=== PATIENT | male | born 1940 | race Caucasian/White ===

== ENCOUNTER 2019-11-03 19:43 | Inpatient (IN) | payer OTHER, SELFPAY ==
[2019-11-03] VITALS (8 sets, daily range): BP systolic 113–142; BP diastolic 68–80; PULSE 89–108; RESP 17–22; TEMP 37.4; O2SAT 95–99; BMI 29.6
--- NOTE | 2019-11-03 19:45 | PC.NURSE ---
EMS states that patient has been having trouble breathing for the last couple weeks. Patient received a duoneb treatment but wheezing still.
--- NOTE | 2019-11-03 19:51 | XRR_ITS ---
PROCEDURE INFORMATION: Exam: XR Chest, 1 View Exam date and time: 11/03/2019 8:17 PM Age: 79 years old Clinical indication: Dyspnea; Additional info: SOB TECHNIQUE: Imaging protocol: XR of the chest Views: 1 view. COMPARISON: CR Chest 1 [place] [id number] 05/06/2019 12:33 PM FINDINGS: There is chronic elevation of the right hemidiaphragm. No infiltrates are present. There is no pleural effusion or pneumothorax. The heart size is stable. Pulmonary vascularity is normal. There is atherosclerotic change of the aorta. There has been no significant interval change. XR/XR chest 1V portable [id number] IMPRESSION: Stable appearance of the chest.
--- NOTE | 2019-11-03 19:52 | ED_ITS ---
HPI - SOB/Dyspnea General: Chief Complaint: Shortness of Breath/Dyspnea Stated Complaint: SOB Time Seen by Provider: 11/03/19 19:47 History of Present Illness: MD elicited complaint: shortness of breath and cough Pertinent past history: COPD Onset (ago): week(s) (2) Timing: constant and progressively worsening Severity: moderate Exacerbating factors: exertion Relieving factors: nothing Known history of: COPD Associated symptoms: Reports chest congestion, cough and fever(s); Deny chest pain, dizziness, nausea or vomiting Review of Systems Const: Reports: fever Eyes: Denies: change in vision or blurry vision ENMT: Denies: painful swallowing, nose bleeds, post nasal drip or facial/sinus pain Card: Denies: chest pain Resp: Reports: chest congestion GI: Denies: nausea or vomiting : Reports: difficulty urinating and other (Chronic indwelling Drake); Denies: urinary urgency or blood in urine Musc: Denies: neck pain, back pain, redness or joint warmth Skin/Breast: Denies: rash, itching or redness Neuro: Denies: headache, dizziness, vertigo, confusion or seizure-like activity Psych: Denies: anxiety, visual hallucinations or auditory hallucinations PFSH ED PFSH: Family History (Updated 08/07/19 @ 17:35 by Valeria Baltazar RN) Family/Other No problems noted. Social History (Updated 08/07/19 @ 17:35 by Valeria Baltazar RN) Smoking and tobacco status: never smoked Alcohol intake: never Marital status: / Current occupational status: retired and disabled Physical Exam Const: GENERAL APPEARANCE: well developed ORIENTATION/CONSCIOUSNESS: Yes oriented to person, Yes oriented to place and Yes oriented to time HENMT: COMMON NORMALS: normocephalic, external ears normal and external nose normal HEAD & SCALP: normocephalic; no scalp tenderness FACE & SINUS: normal facial exam NOSE: external nose normal and no nasal discharge EXTERNAL EAR: Yes external ears normal Eye: COMMON NORMALS: PERRL, EOMs intact bilaterally and conjunctivae normal EYELID: eyelids normal CONJUNCTIVA: Yes conjunctivae normal PUPIL: Yes PERRL Neck/C-Spine: GENERAL: No tracheal deviation Chest: COMMONS NORMALS: inspection of chest normal CHEST: No tenderness Resp: EFFORT & INSPECTION: Yes tachypneic, Yes respiratory distress, No retractions, Yes uses accessory muscles and No tracheal deviation AUSCULTATION: rhonchi, wheezes and diminished lung sounds Cardio: COMMON NORMALS: regular rhythm RATE: tachycardic RHYTHM: regular rhythm HEART SOUNDS: no murmurs PERIPHERAL PULSES: radial pulses present GI: INSPECTION: No abdominal distension AUSCULTATION: No hyperactive bowel sounds and No hypoactive bowel sounds PALPATION: No guarding and No rigid PERCUSSION: no dullness to percussion and no tympanic to percussion Neuro: SENSORIUM/ORIENTATION: Yes oriented to person, Yes oriented to place and Yes oriented to time Psych: COMMON NORMALS: mental status grossly normal Skin: COMMON NORMALS: no rashes or lesions noted GENERAL SKIN EXAM: no rashes or lesions noted Course Vital Signs: Vital signs: Vital Signs Temperature 99.3 F 11/03/19 19:44 Pulse Rate 108 H 11/03/19 20:49 Respiratory Rate 17 11/03/19 20:49 Blood Pressure 116/72 11/03/19 20:49 Pulse Oximetry 98 11/03/19 20:49 MDM - SOB/Dyspnea MDM Narrative: Medical decision making narrative: 79-year-old male with a history of COPD. Says he has been getting more and more ill for the past 2 weeks. Today he could not breathe at home. This was despite oxygen and breathing treatments. He presents to the emergency department tachypneic, in mild respiratory distress, using accessory muscles to breathe. He is improved after a DuoNeb treatment and Solu-Medrol, although still tachypneic and still using some accessory muscles. He still audibly wheezing as well. His blood gas does not show a respiratory acidosis, however he was significantly tachypneic on arrival. He will be admitted for hypoxic respiratory failure and COPD exacerbation. Because of his temperature, he will be tested for COVID 19. Lab Data: Labs: Lab Results 11/03/19 11/03/19 11/03/19 Range/Units 20:10 20:10 20:10 WBC 14.9 H (4.0-10.0) 10^3/ uL RBC 4.56 (4.1-5.3) 10^6/u L Hgb 12.4 (11.7-16.6) g/dL Hct 40.3 L (42.0-52.0) % MCV 88.4 (80-94) fL MCH 27.2 L (28.0-34.0) pg MCHC 30.8 (30.0-36.0) g/dL RDW 15.7 H (12.1-15.1) % Plt Count 162 (130-400) 10^3/c mm MPV 9.6 (7.4-10.4) fL Neut % (Auto) 87.0 % Lymph % (Auto) 3.6 % Ward % (Auto) 8.6 % Eos % (Auto) 0.1 % Baso % (Auto) 0.3 % Neut # (Auto) 13.0 H (1.8-7.7) 10^3/u L Lymph # (Auto) 0.5 L (0.8-4.8) 10^3/u L Ward # (Auto) 1.3 H (0.2-0.9) 10^3/u L Eos # (Auto) 0.0 (0.0-0.8) 10^3/u L Baso # (Auto) 0.0 (0.0-0.1) 10^3/u L Nucleated RBC % (a uto) 0 % Nucleated RBCs # 0.0 /100WBC Specimen Type Arterial Sample Site Radial, left ABG pH 7.39 (7.35-7.45) ABG pCO2 49.3 H (35-45) mmHg ABG pO2 67.4 L (80.0-100.0) mmH g ABG HCO3 29.5 H (22-26) mmol/L ABG Base Excess 3.6 H (-2.0-2.0) mmol/ L Shaun Test Pos Hematocrit 36.8 L (42-52) % Hgb O2 Saturation 91.5 L (95-100) % Carboxyhemoglobin 1.0 (0.4-20.1) %THgb Methemoglobin 0.8 (0.4-1.5) % Total Hemoglobin 12.0 L (14-18) g/dL O2 Delivery Device Nc O2 Liters/Min 4.0 % Cold Roll Catcher ID [email or web address] Sodium 137 (136-145) mmol/L Potassium 4.6 (3.5-5.1) mmol/L Chloride 95 L (98-107) mmol/L Carbon Dioxide 29 (22-29) mmol/L Anion Gap 17.6 (5-19) BUN 32 H (8-23) mg/dL Creatinine 2.0 H (0.7-1.2) mg/dL Glucose 182 H (65-115) mg/dL Calculated Osmolal ity 286 (285-295) mOsm/k g Lactic Acid (0.5-2.2) mmol/L Calcium 9.9 (8.5-10.5) mg/dL Total Bilirubin 0.4 (0.15-1.2) mg/dL AST 23 (0-40) U/L ALT 18 (0-41) U/L Alkaline Phosphata se 173 H (40-130) IU/L NT-Pro-B Natriuret Pep 676 H (0-450) pg/mL Total Protein 7.3 (6.6-8.7) g/dL Albumin 3.8 (3.5-5.2) g/dL Globulin 3.5 (1.3-4.6) g/dL Influenza Type A A g (Negative) Influenza Type B A g (Negative) 11/03/19 11/03/19 Range/Units 20:10 20:47 WBC (4.0-10.0) 10^3/ uL RBC (4.1-5.3) 10^6/u L Hgb (11.7-16.6) g/dL Hct (42.0-52.0) % MCV (80-94) fL MCH (28.0-34.0) pg MCHC (30.0-36.0) g/dL RDW (12.1-15.1) % Plt Count (130-400) 10^3/c mm MPV (7.4-10.4) fL Neut % (Auto) % Lymph % (Auto) % Ward % (Auto) % Eos % (Auto) % Baso % (Auto) % Neut # (Auto) (1.8-7.7) 10^3/u L Lymph # (Auto) (0.8-4.8) 10^3/u L Ward # (Auto) (0.2-0.9) 10^3/u L Eos # (Auto) (0.0-0.8) 10^3/u L Baso # (Auto) (0.0-0.1) 10^3/u L Nucleated RBC % (a uto) % Nucleated RBCs # /100WBC Specimen Type Sample Site ABG pH (7.35-7.45) ABG pCO2 (35-45) mmHg ABG pO2 (80.0-100.0) mmH g ABG HCO3 (22-26) mmol/L ABG Base Excess (-2.0-2.0) mmol/ L Shaun Test Hematocrit (42-52) % Hgb O2 Saturation (95-100) % Carboxyhemoglobin (0.4-20.1) %THgb Methemoglobin (0.4-1.5) % Total Hemoglobin (14-18) g/dL O2 Delivery Device O2 Liters/Min % Cold Roll Catcher ID Sodium (136-145) mmol/L Potassium (3.5-5.1) mmol/L Chloride (98-107) mmol/L Carbon Dioxide (22-29) mmol/L Anion Gap (5-19) BUN (8-23) mg/dL Creatinine (0.7-1.2) mg/dL Glucose (65-115) mg/dL Calculated Osmolal ity (285-295) mOsm/k g Lactic Acid 1.2 (0.5-2.2) mmol/L Calcium (8.5-10.5) mg/dL Total Bilirubin (0.15-1.2) mg/dL AST (0-40) U/L ALT (0-41) U/L Alkaline Phosphata se (40-130) IU/L NT-Pro-B Natriuret Pep (0-450) pg/mL Total Protein (6.6-8.7) g/dL Albumin (3.5-5.2) g/dL Globulin (1.3-4.6) g/dL Influenza Type A A g Negative (Negative) Influenza Type B A g Negative (Negative) Discharge Plan Discharge Patient Disposition: Admitted As Inpatient Clinical Impression: Acute exacerbation of chronic obstructive airways disease Respiratory failure, acute and chronic Qualifiers: Respiratory failure complication: hypoxia Qualified Code(s): J96.21 - Acute and chronic respiratory failure with hypoxia Condition: Stable Referrals: Erik Adkins DO [Family Provider] - Coding Level of Care Code ED Closing Manager for [facility] Fwd Exam Comprehensive
[2019-11-03] MEDS: ipratropium-albuterol 3 mL Neb INHALATION (20:08)
[2019-11-03 20:16] LABS: Basophils % 0.3 %; Eosinophils % 0.1 %; Hematocrit 40.3 % (42.0-52.0); Hemoglobin 12.4 g/dL (11.7-16.6); Lymphocytes # 0.5 10^3/uL (0.8-4.8); Lymphocytes % 3.6 %; Mean Corpuscular HGB Conc 30.8 g/dL (30.0-36.0); Mean Corpuscular Hemoglobin 27.2 pg (28.0-34.0); Mean Corpuscular Volume 88.4 fL (80-94); Mean Platelet Volume 9.6 fL (7.4-10.4); Monocytes # 1.3 10^3/uL (0.2-0.9); Monocytes % 8.6 %; Nucleated Red Blood Cells % 0 %; Platelet Count 162 10^3/cmm (130-400); Red Blood Count 4.56 10^6/uL (4.1-5.3); Red Cell Distribution Width 15.7 % (12.1-15.1); White Blood Count 14.9 10^3/uL (4.0-10.0)
[2019-11-03] MEDS: FUROsemide 10 mg/mL SDV 10mL 60 MG IVP (20:19)
[2019-11-03 20:30] LABS: Lactic Sepsis W/Reflex 1.2 mmol/L (0.5-2.2)
[2019-11-03 20:39] LABS: ABG PCO2 49.3 mmHg (35-45); ABG PH Result 7.39 (7.35-7.45); Arterial Blood Gas Hematocrit 36.8 % (42-52); Base Excess ABG 3.6 mmol/L (-2.0-2.0); Blood Gas Allen Test Pos; Blood Gas Sample Site Radial, left; Blood Gas Sample Type Arterial; HCO3 ABG 29.5 mmol/L (22-26); HGB O2 Sat 91.5 % (95-100); Methemoglobin 0.8 % (0.4-1.5); Oxygen Device NC; PO2 ABG 67.4 mmHg (80.0-100.0)
[2019-11-03 20:40] LABS: Alanine Aminotransferase 18 U/L (0-41); Albumin Level 3.8 g/dL (3.5-5.2); Alkaline Phosphatase 173 IU/L (40-130); Anion Gap 17.6 (5-19); Aspartate Amino Transferase 23 U/L (0-40); Blood Urea Nitrogen 32 mg/dL (8-23); Calcium 9.9 mg/dL (8.5-10.5); Carbon Dioxide 29 mmol/L (22-29); Chloride 95 mmol/L (98-107); Globulin 3.5 g/dL (1.3-4.6); Glucose 182 mg/dL (65-115); NT Pro B Type Natriuretic Pept 676 pg/mL (0-450); Osmolality Calculated 286 mOsm/kg (285-295); Potassium 4.6 mmol/L (3.5-5.1); Sodium 137 mmol/L (136-145); Total Bilirubin 0.4 mg/dL (0.15-1.2); Total Protein 7.3 g/dL (6.6-8.7)
[2019-11-03 21:13] LABS: Influenza A by IFA Negative (Negative); Influenza B by IFA Negative (Negative)
[2019-11-03] MEDS: doxycycline 100 mg Tablet PO (22:23)
--- NOTE | 2019-11-03 22:25 | PC.NURSE ---
patient gowned by nurse
--- NOTE | 2019-11-03 22:34 | PM.HP ---
Providers/Chief Complaint Chief Complaint: SOB History of Present Illness Vladimir Farnsworth is a 79 year old male who presented to the emergency room with chief complaint of difficulty breathing. Symptoms have been progressing over the last 2 weeks. He has had increasing cough which is intermittently productive of thickened sputum. When he coughs he cannot breathe . He is not been able to do anything because of his breathing. He cannot get up and walk around. He thinks he has had a low-grade fever but he is not certain. Denies sore throat. He has pain with coughing but it is primarily in the lower abdomen rather than in the chest. He has not been sleeping well. He describes also getting more short of breath when eating but denies physical difficulty swallowing. He does describe some lower extremity edema. Probably describing some orthopnea but not clear. No reported vomiting, diarrhea, constipation. He does describe difficulties with my catheter but is not able to really go into details beyond complaints of pain in the lower abdomen and suprapubic area. Urine is flowing. He cannot tell me the last time that the catheter was changed. He does mention that it is difficult to place. He has a chronic indwelling Drake catheter due to benign prostatic hypertrophy. He does mention having home health services that come out and change the catheter but I am not certain if this has been ongoing recently or not. Patient had audible wheezing on presentation to the ED and was initially on some significant distress. He does wear oxygen chronically for COPD. Review of records shows some noncompliance. He has chronic diastolic CHF. He reports compliance with medications and did bring bottles in. In the ED he received breathing treatment, Solu-Medrol and IV Lasix. He is currently breathing a bit better but has paroxysms of coughing that are quite severe. He is being admitted for further care. Review of Systems Const: Reports: fever (Subjective), fatigue and malaise; Denies: chills or diaphoresis Eyes: Denies: change in vision ENMT: Reports: nasal congestion; Denies: throat pain Card: Reports: edema; Denies: chest pain or palpitations Resp: Reports: shortness of breath, productive cough, non-productive cough, wheezing, pain on inspiration (Lower abdomen, not in chest) and chest congestion; Denies: change in phlegm color or coughing up blood GI: Reports: abdominal pain (With coughing); Denies: nausea, vomiting, difficulty swallowing (But reports gets more short of breath while eating), diarrhea, constipation or blood in stool : Reports: other (Chronic indwelling Drake catheter, unclear problems reported) Musc: Reports: back pain, joint pain and muscle weakness; Denies: redness or joint warmth Skin/Breast: Denies: rash or sores Neuro: Reports: weakness in extremities (General rather than focal); Denies: headache or numbness in extremities Psych: Reports: anxiety (About breathing) Riky/Lymph: Denies: easy bruising or easy bleeding Medications/Allergies Home Medications Medication Instructions Recorded Confirmed Last Taken Type furosemide 40 mg PO DAILY 11/03/19 11/04/19 Unknown History hydrocodone-acetaminophen 1 tab PO Q6H PRN 11/03/19 11/03/19 11/03/19 History ipratropium-albuterol 2.5 ml INHALATION Q4H PRN 11/03/19 11/03/19 Unknown History lisinopril 5 mg PO DAILY 11/03/19 11/04/19 Unknown History metformin 500 mg PO BID 11/03/19 11/04/19 Unknown History metoprolol tartrate 12.5 mg PO BID 11/03/19 11/04/19 11/03/19 History 25 mg potassium chloride 20 meq PO DAILY 11/03/19 11/04/19 Unknown History Allergies Allergy/AdvReac Type Severity Reaction Status Date / Time No Known Allergies Allergy Unverified 08/07/19 17:31 PFSH Acute PFSH: Medical History Aortic stenosis, mild BPH with urinary obstruction CHF (congestive heart failure) Chronic kidney disease, stage 3 COPD (chronic obstructive pulmonary disease) COPD (chronic obstructive pulmonary disease) Diabetes mellitus, type II History of ESBL E. coli infection urine Hypertension Osteoarthritis chronic back and joint pains Surgical History No pertinent past surgical history denies any surgeries Family History Family/Other No problems noted. Social History Smoking and tobacco status: never smoked Alcohol intake: never Marital status: / Current occupational status: retired and disabled Vitals/I&O/Wt Last Vital Signs Temp 99.3 F 11/03/19 19:44 Pulse 95 11/03/19 22:14 Resp 18 11/03/19 22:14 BP 113/68 11/03/19 22:14 Pulse Ox 95 11/03/19 22:14 Weight last 48 hrs Weight 88.451 kg Physical Exam Const: COMMON NORMALS: oriented x3 and alert HENMT: COMMON NORMALS: normocephalic, head/scalp atraumatic and moist oral mucous membranes Eye: COMMON NORMALS: EOMs intact bilaterally Resp: EFFORT & INSPECTION: Yes tachypneic, Yes uses accessory muscles and Yes prolonged expiratory phase AUSCULTATION: wheezes Cardio: COMMON NORMALS: regular rhythm RHYTHM: regular rhythm GI: COMMON NORMALS: soft to palpation AUSCULTATION: Yes normoactive bowel sounds PALPATION: Yes other (Patient holds his lower abdomen with coughing but not focally tender when not coughing) Extremity: COMMON NORMALS: normal capillary refill GENERAL: Yes edema Neuro: COMMON NORMALS: moves all extremities Psych: OTHER: Patient jokes and complains of pain throughout the examination. He is not a great historian but does try to answer questions. He has poor insight into his overall medical conditions, asking why he is as sick as he is chronically not so much acutely. Skin: NARRATIVE SKIN EXAM: Patient has a wound to his right upper extremity that is chronic with hypertrophied scabbing. He has chronic sun exposure changes. On his lower extremities he has some chronic stasis changes. Data : 11/04/19 04:30 11/04/19 04:30 Micro: Microbiology 11/03/19 20:12 Blood Culture - Preliminary Blood SPECIMEN COLLECTED 11/03/19 20:10 Blood Culture - Preliminary Blood SPECIMEN COLLECTED A&P Assessment and plan (1) Acute exacerbation of chronic obstructive airways disease: Status: Acute (2) Respiratory failure, acute and chronic: Status: Acute Qualifiers: Respiratory failure complication: hypoxia Qualified Code(s): J96.21 - Acute and chronic respiratory failure with hypoxia (3) Aortic stenosis, mild: Status: Chronic (4) Diabetes mellitus, type II: Status: Chronic Qualifiers: Diabetes mellitus terminal clerk insulin use: without terminal clerk use Diabetes mellitus complication status: with kidney complications Diabetes mellitus complication detail: with chronic kidney disease Chronic kidney disease stage: stage 3 (moderate) Qualified Code(s): E11.22 - Type 2 diabetes mellitus with diabetic chronic kidney disease; N18.3 - Chronic kidney disease, stage 3 (moderate) (5) Chronic indwelling Drake catheter: Status: Chronic (6) Hypertension: Status: Chronic Qualifiers: Hypertension type: essential hypertension Qualified Code(s): I10 - Essential (primary) hypertension (7) Frequent falls: Status: Chronic (8) Osteoarthritis: Status: Chronic Qualifiers: Osteoarthritis location: multiple joints Osteoarthritis type: unspecified Qualified Code(s): M15.9 - Polyosteoarthritis, unspecified Additional A&P Information Inpatient admission COVID testing Continue inhalers, oral steroids and oral doxycycline Replace Drake catheter tubing and check urinalysis IV Lasix for now Monitor I's and O's and renal function closely Hold metformin, sliding scale insulin currently Continue home lisinopril Continue home pain medication with hydrocodone PT evaluation pending results of COVID testing We will need to clarify disposition options; he currently lives with his sister Supportive care otherwise Full code Plans discussed with patient and he was given an opportunity to ask questions Attestations Medical Necessity Statement*: Anticipated stay greater than 2 midnights in a patient with COPD presenting with worsening symptoms as noted above. Plans are as indicated Coding Level of Care Code Acute Librarian Special Library for [facility] Diagnoses Acute exacerbation of chronic obstructive airways disease J44.1 Respiratory failure, acute and chronic J96.21 Respiratory failure complication: hypoxia Aortic stenosis, mild I35.0 Diabetes mellitus, type II E11.22; N18.3 Diabetes mellitus terminal clerk insulin use: without terminal clerk use Diabetes mellitus complication status: with kidney complications Diabetes mellitus complication detail: with chronic kidney disease Chronic kidney disease stage: stage 3 (moderate) Chronic indwelling Drake catheter Z96.0 Hypertension I10 Hypertension type: essential hypertension Frequent falls R29.6 Osteoarthritis M15.9 Osteoarthritis location: multiple joints Osteoarthritis type: unspecified
[2019-11-03 23:33] LABS: Magnesium 1.6 mg/dL (1.7-2.3)
[2019-11-04] VITALS (46 sets, daily range): BP systolic 103–144; BP diastolic 59–80; PULSE 65–99; RESP 12–28; TEMP 36.8–37.1; O2SAT 81–97
--- NOTE | 2019-11-04 00:42 | PC.NURSE ---
Home medications discussed with patient. Medications placed in home med bin in pyxis. Medications included metoprolol, metformin, potassium chloride, lisinopril and furosemide. Verified with MONSTER Quinn.
[2019-11-04] MEDS: HYDROcodone-acetaminophen 5-325 mg Tablet 1 TAB PO ×4 (00:48→22:52)
[2019-11-04] MEDS: enoxaparin 30 mg/0.3 mL Syringe SUBCUT (00:49)
--- NOTE | 2019-11-04 01:22 | PC.NURSE ---
Pt settled into bed, admission assessment done, SCDs placed, O2 on 3L NC, Pt given lovenox, insulin, and hydrocodone., Pt ate Pudding, cheese stick, and crackers, Pt borja bag replaced and line clamped to pull urinalysis sample, call light w/in reach
[2019-11-04 01:24] LABS: Glucose Point of Care 212 mg/dL (70-110)
--- NOTE | 2019-11-04 02:39 | PC.NURSE ---
Pt c/o pain even after hydrocodone. Dr. Barrera notified. no orders given.
[2019-11-04] MEDS: albuterol 8 gm MDI 2 PUFF INHALATION (02:51)
[2019-11-04 03:23] LABS: Bilirubin Urine Neg (NEGATIVE); Blood Urine 2+ (Negative); Glucose Urine UA Norm (Normal); Ketones Urine Negative (Negative); Leukocyte Esterase Urine 2+ (Negative); Nitrate Urine Positive (Negative); Protein Urine Neg (Negative); Urine Appearance Cloudy (CLEAR); Urine Color Straw (Yellow); Urobilinogen Urine Norm (Negative); pH Urine 5 (5-7)
[2019-11-04 03:24] LABS: Add Urine Microscopic? YES
[2019-11-04 03:25] LABS: Bacteria Urine 2+; RBC Urine 0-4 /hpf (0-2); Squamous Epithelial Cell Urine 0-4 (0-5); WBC Urine 80-100 /hpf (0-5)
[2019-11-04 03:26] LABS: Add Urine Culture? Yes; Mucus Urine TRACE
[2019-11-04] MEDS: acetaminophen 325 mg Tablet 650 MG PO (03:47)
--- NOTE | 2019-11-04 04:01 | PC.NURSE ---
pt c/o pain still. hydrocodone given again with tylenol as well.
[2019-11-04 05:05] LABS: Basophils % 0.2 %; Hemoglobin 11.8 g/dL (11.7-16.6); Lymphocytes # 0.3 10^3/uL (0.8-4.8); Lymphocytes % 2.9 %; Mean Corpuscular HGB Conc 30.3 g/dL (30.0-36.0); Mean Corpuscular Hemoglobin 25.9 pg (28.0-34.0); Mean Corpuscular Volume 85.7 fL (80-94); Mean Platelet Volume 10.3 fL (7.4-10.4); Monocytes # 0.2 10^3/uL (0.2-0.9); Monocytes % 1.9 %; Neutrophils # 9.6 10^3/uL (1.8-7.7); Neutrophils % 94.5 %; Nucleated Red Blood Cells % 0 %; Platelet Count 171 10^3/cmm (130-400); Red Blood Count 4.55 10^6/uL (4.1-5.3); Red Cell Distribution Width 15.6 % (12.1-15.1); White Blood Count 10.2 10^3/uL (4.0-10.0)
[2019-11-04 05:21] LABS: Anion Gap 20.4 (5-19); Blood Urea Nitrogen 40 mg/dL (8-23); Carbon Dioxide 30 mmol/L (22-29); Chloride 93 mmol/L (98-107); Glucose 302 mg/dL (65-115); Magnesium 1.7 mg/dL (1.7-2.3); Osmolality Calculated 297 mOsm/kg (285-295); Potassium 4.4 mmol/L (3.5-5.1); Sodium 139 mmol/L (136-145)
[2019-11-04] MEDS: morphine 4 mg/mL SDV 1 mL 2 MG IVP (05:44)
[2019-11-04 07:31] LABS: Glucose Point of Care 272 mg/dL (70-110)
[2019-11-04] MEDS: metoprolol tartrate 25 mg Tablet 12.5 MG PO ×2 (07:51→20:01)
[2019-11-04] MEDS: predniSONE 20 mg Tablet 40 MG PO (10:35)
[2019-11-04] MEDS: doxycycline 100 mg Tablet PO ×2 (10:36→17:15)
--- NOTE | 2019-11-04 13:51 | PM.PN ---
Subjective Subjective: Interval history: This morning patient states that his breathing has improved, no fevers, no chills, no nausea, no vomiting, no lightheadedness, no dizziness, states that he was [facility] from the [facility] a few months ago, currently lives by himself, no falls, no injury, no recent travel, no known exposure to COVID-19 Vitals/I&O/Wt Last Vital Signs Temp 99.3 F 11/03/19 19:44 Pulse 74 11/04/19 12:30 Resp 24 H 11/04/19 12:30 BP 110/60 11/04/19 12:30 Pulse Ox 94 11/04/19 12:30 11/03/19 11/04/19 11/04/19 22:59 06:59 14:59 Intake Total 400 / 400 480 / 480 Balance 400 / 400 480 / 480 Weight last 48 hrs Weight 88.451 kg Physical Exam Const: COMMON NORMALS: no apparent distress and oriented x3 HENMT: COMMON NORMALS: normocephalic HEAD & SCALP: normocephalic Neck/C-Spine: COMMON NORMALS: no JVD Resp: COMMON NORMALS: normal respiratory effort, no retractions and no use of accessory muscles AUSCULTATION: wheezes Cardio: COMMON NORMALS: no JVD, regular rate, regular rhythm, S1 normal heart sound and S2 normal heart sound RATE: regular rate RHYTHM: regular rhythm HEART SOUNDS: S1 normal and S2 normal GI: COMMON NORMALS: normal to inspection, nondistended, normoactive bowel sounds, soft to palpation, non-tender, no hepatosplenomegaly, no masses and no bruits PALPATION: Yes soft and Yes no hepatosplenomegaly Extremity: COMMON NORMALS: normal capillary refill, no clubbing, cyanosis or edema, no calf tenderness and no pedal edema Neuro: COMMON NORMALS: oriented x3 Psych: COMMON NORMALS: mental status grossly normal Urinary Catheter Management^: Drake: Cath Placed During This Visit: no Reason for Continuing Indwelling Catheter: Chronic Indwelling Urinary Catheter on Admission Data : 11/04/19 04:30 11/04/19 04:30 Micro: Microbiology 11/03/19 20:48 Gram Stain - Final Sputum - Expectorated Sputum 11/03/19 20:12 Blood Culture - Preliminary Blood SPECIMEN COLLECTED 11/03/19 20:10 Blood Culture - Preliminary Blood SPECIMEN COLLECTED A&P Assessment and plan (1) Acute exacerbation of chronic obstructive airways disease: -Patient does have x-ray evidence of right clementina-diaphragmatic elevation -Continue prednisone 40 mg daily -Continue doxycycline 100 mg p.o. twice daily -Continue nebulizer treatments -Continue oxygen therapy -We will await COVID-19 testing results Status: Acute (2) Respiratory failure, acute and chronic: Status: Acute Qualifiers: Respiratory failure complication: hypoxia Qualified Code(s): J96.21 - Acute and chronic respiratory failure with hypoxia (3) Aortic stenosis, mild: Echocardiogram on February 2019 shows moderate aortic stenosis Status: Chronic (4) Diabetes mellitus, type II: Low-dose sliding scale Status: Chronic Qualifiers: Diabetes mellitus buttermilk drier operator insulin use: without mcc use Diabetes mellitus complication status: with kidney complications Diabetes mellitus complication detail: with chronic kidney disease Chronic kidney disease stage: stage 3 (moderate) Qualified Code(s): E11.22 - Type 2 diabetes mellitus with diabetic chronic kidney disease; N18.3 - Chronic kidney disease, stage 3 (moderate) (5) Chronic indwelling Drake catheter: Status: Chronic (6) Hypertension: Status: Chronic Qualifiers: Hypertension type: essential hypertension Qualified Code(s): I10 - Essential (primary) hypertension (7) Frequent falls: Status: Chronic (8) Osteoarthritis: Status: Chronic Qualifiers: Osteoarthritis location: multiple joints Osteoarthritis type: unspecified Qualified Code(s): M15.9 - Polyosteoarthritis, unspecified (9) Acute kidney injury superimposed on CKD: Creatinine increased to 2.0 Status: Acute (10) UTI (urinary tract infection): -Has a chronic Drake -UA evidence of UTI, start Rocephin Status: Acute Additional A&P Information We will need to clarify disposition options; he currently lives with his sister Supportive care otherwise Full code Plans discussed with patient and he was given an opportunity to ask questions Attestations Medical Necessity Statement*: Patient requires hospitalization for COPD exacerbation, MARY BETH, UTI Coding Level of Care Code Acute Hand Alterations Seamstress for [facility] Fwd Diagnoses Acute exacerbation of chronic obstructive airways disease J44.1 Respiratory failure, acute and chronic J96.21 Respiratory failure complication: hypoxia Aortic stenosis, mild I35.0 Diabetes mellitus, type II E11.22; N18.3 Diabetes mellitus mcc insulin use: without buttermilk drier operator use Diabetes mellitus complication status: with kidney complications Diabetes mellitus complication detail: with chronic kidney disease Chronic kidney disease stage: stage 3 (moderate) Chronic indwelling Drake catheter Z96.0 Hypertension I10 Hypertension type: essential hypertension Frequent falls R29.6 Osteoarthritis M15.9 Osteoarthritis location: multiple joints Osteoarthritis type: unspecified Acute kidney injury superimposed on CKD N17.9; N18.9 UTI (urinary tract infection) N39.0
[2019-11-04] MEDS: piperacillin-tazobactam 3.375 GM in sodium chloride 0.9% (plus) 50 ML IV ×2 (16:10→23:50)
[2019-11-04 16:13] LABS: Coronavirus Lab Test PTC Negative
[2019-11-04 17:01] LABS: Glucose Point of Care 212 mg/dL (70-110)
[2019-11-04] MEDS: guaiFENesin 100 mg/5 mL UDC 10 mL 200 MG PO (20:05)
[2019-11-04 20:58] LABS: Glucose Point of Care 258 mg/dL (70-110)
[2019-11-05] VITALS (15 sets, daily range): BP systolic 113–142; BP diastolic 71–90; PULSE 8–91; RESP 18–24; TEMP 36.4–37.1; O2SAT 93–99
[2019-11-05] MEDS: enoxaparin 30 mg/0.3 mL Syringe SUBCUT ×2 (00:10→23:25)
[2019-11-05 06:13] LABS: Basophils % 0.1 %; Hematocrit 39.2 % (42.0-52.0); Lymphocytes # 0.8 10^3/uL (0.8-4.8); Lymphocytes % 4.5 %; Mean Corpuscular HGB Conc 30.6 g/dL (30.0-36.0); Mean Corpuscular Hemoglobin 26.1 pg (28.0-34.0); Mean Corpuscular Volume 85.2 fL (80-94); Mean Platelet Volume 11.3 fL (7.4-10.4); Monocytes # 1.5 10^3/uL (0.2-0.9); Monocytes % 8.4 %; Neutrophils # 15.3 10^3/uL (1.8-7.7); Neutrophils % 86.4 %; Nucleated Red Blood Cells % 0 %; Platelet Count 196 10^3/cmm (130-400); Red Cell Distribution Width 15.4 % (12.1-15.1); White Blood Count 17.7 10^3/uL (4.0-10.0)
[2019-11-05 06:32] LABS: Alanine Aminotransferase 32 U/L (0-41); Albumin Level 3.7 g/dL (3.5-5.2); Alkaline Phosphatase 139 IU/L (40-130); Anion Gap 18.5 (5-19); Aspartate Amino Transferase 31 U/L (0-40); Blood Urea Nitrogen 57 mg/dL (8-23); Carbon Dioxide 29 mmol/L (22-29); Chloride 96 mmol/L (98-107); Globulin 3.5 g/dL (1.3-4.6); Glucose 180 mg/dL (65-115); Magnesium 1.9 mg/dL (1.7-2.3); Osmolality Calculated 291 mOsm/kg (285-295); Phosphorus 3.4 mg/dL (2.5-4.5); Potassium 4.5 mmol/L (3.5-5.1); Sodium 139 mmol/L (136-145); Total Bilirubin 0.2 mg/dL (0.15-1.2); Total Protein 7.2 g/dL (6.6-8.7)
[2019-11-05 06:41] LABS: Glucose Point of Care 148 mg/dL (70-110)
[2019-11-05] MEDS: predniSONE 20 mg Tablet 40 MG PO (08:49)
[2019-11-05] MEDS: metoprolol tartrate 25 mg Tablet 12.5 MG PO ×2 (08:53→20:13)
[2019-11-05] MEDS: doxycycline 100 mg Tablet PO ×2 (08:56→17:29)
[2019-11-05] MEDS: piperacillin-tazobactam 3.375 GM in sodium chloride 0.9% (plus) 50 ML IV ×3 (08:56→23:23)
--- NOTE | 2019-11-05 10:47 | XR_ITS ---
WS: [id number] PORTABLE CHEST HISTORY: wheezing COMPARISON: 11/03/2019 Chronic elevation of the RIGHT hemidiaphragm. Linear areas of atelectasis in the central RIGHT lung t hat remains aerated. There are some very mild haziness and granular appearance over the central LEFT lung. No pleural effu chema or pneumothorax. Cardiac size: Mildly enlarged cardiac silhouette. Mediastinum/Aorta: Mild atherosclerosis aorta. No osseous abnormality seen. XR/XR chest 1V portable [id number] IMPRESSION: 1. New mild haziness over the central LEFT lung may be an area of pneumonitis. 2. Chronic elevation of the RIGHT diaphragm is stable.
--- NOTE | 2019-11-05 10:48 | PM.PN ---
Subjective Subjective: Interval history: This morning patient is quite wheezy on exam, complains of shortness of breath with exertion, also states that his Drake catheter is bothering him almost like a burning sensation, no fevers, no chills, has a persistent cough Vitals/I&O/Wt Last Vital Signs Temp 98.2 F 11/05/19 07:30 Pulse 84 11/05/19 08:19 Resp 20 H 11/05/19 08:18 BP 142/86 11/05/19 07:30 Pulse Ox 95 11/05/19 08:18 11/04/19 11/05/19 11/05/19 22:59 06:59 14:59 Intake Total 510 / 990 150 / 1140 240 / 240 Output Total 905 / 905 950 / 1855 Balance -395 / 85 -800 / -715 240 / 240 Weight last 48 hrs Weight 88.451 kg Physical Exam Const: COMMON NORMALS: no apparent distress and oriented x3 HENMT: COMMON NORMALS: normocephalic HEAD & SCALP: normocephalic Neck/C-Spine: COMMON NORMALS: no JVD Resp: COMMON NORMALS: normal respiratory effort, no retractions and no use of accessory muscles AUSCULTATION: wheezes Cardio: COMMON NORMALS: no JVD, regular rate, regular rhythm, S1 normal heart sound and S2 normal heart sound RATE: regular rate RHYTHM: regular rhythm HEART SOUNDS: S1 normal and S2 normal GI: COMMON NORMALS: normal to inspection, nondistended, normoactive bowel sounds, soft to palpation, non-tender, no hepatosplenomegaly, no masses and no bruits PALPATION: Yes soft and Yes no hepatosplenomegaly Extremity: COMMON NORMALS: normal capillary refill, no clubbing, cyanosis or edema, no calf tenderness and no pedal edema Neuro: COMMON NORMALS: oriented x3 Psych: COMMON NORMALS: mental status grossly normal Urinary Catheter Management^: Drake: Cath Placed During This Visit: no Reason for Continuing Indwelling Catheter: Chronic Indwelling Urinary Catheter on Admission Data : 11/05/19 05:40 11/05/19 05:40 Micro: Microbiology 11/03/19 20:10 Blood Culture - Preliminary Blood NEGATIVE TO DATE 11/03/19 20:12 Blood Culture - Preliminary Blood Gram Negative Rods 11/03/19 20:48 Gram Stain - Final Sputum - Expectorated Sputum A&P Assessment and plan (1) Gram-negative bacteremia: -blood culture / positive for gram-negative rods -Patient does have a history of ESBL E. coli UTI in the past -Patient has a history of chronic Drake placement, UA was positive for UTI, patient was on Rocephin PLAN: -Given history of ESBL E. coli UTI in the past, I broaden the antibiotic coverage to Zosyn Status: Acute (2) Acute exacerbation of chronic obstructive airways disease: -Patient does have x-ray evidence of right clementina-diaphragmatic elevation -Given patient's increased wheezing today and shortness of breath, increase steroids to Solu-Medrol 40 mg IV twice daily, repeat chest x-ray today -Continue doxycycline 100 mg p.o. twice daily -Continue nebulizer treatments -Continue oxygen therapy - COVID-19 testing results negative Status: Acute (3) Respiratory failure, acute and chronic: Status: Acute Qualifiers: Respiratory failure complication: hypoxia Qualified Code(s): J96.21 - Acute and chronic respiratory failure with hypoxia (4) Aortic stenosis, mild: Echocardiogram on February 2019 shows moderate aortic stenosis Status: Chronic (5) Diabetes mellitus, type II: Low-dose sliding scale Status: Chronic Qualifiers: Diabetes mellitus termite inspector insulin use: without termite inspector use Diabetes mellitus complication status: with kidney complications Diabetes mellitus complication detail: with chronic kidney disease Chronic kidney disease stage: stage 3 (moderate) Qualified Code(s): E11.22 - Type 2 diabetes mellitus with diabetic chronic kidney disease; N18.3 - Chronic kidney disease, stage 3 (moderate) (6) Chronic indwelling Drake catheter: Status: Chronic (7) Hypertension: Status: Chronic Qualifiers: Hypertension type: essential hypertension Qualified Code(s): I10 - Essential (primary) hypertension (8) Frequent falls: Status: Chronic (9) Osteoarthritis: Status: Chronic Qualifiers: Osteoarthritis location: multiple joints Osteoarthritis type: unspecified Qualified Code(s): M15.9 - Polyosteoarthritis, unspecified (10) Acute kidney injury superimposed on CKD: Creatinine increased to 1.9, holding lisinopril, holding Lasix Status: Acute (11) UTI (urinary tract infection): -Has a chronic Drake -UA evidence of UTI, I have expanded antibiotic coverage to Zosyn Status: Acute Additional A&P Information Supportive care otherwise Full code Attestations Medical Necessity Statement*: Patient requires hospitalization, for acute respiratory failure secondary to COPD, gram-negative bacteremia Coding Level of Care Code Acute Machine Ii Engraver for [facility] Diagnoses Gram-negative bacteremia R78.81 Acute exacerbation of chronic obstructive airways disease J44.1 Respiratory failure, acute and chronic J96.21 Respiratory failure complication: hypoxia Aortic stenosis, mild I35.0 Diabetes mellitus, type II E11.22; N18.3 Diabetes mellitus termite inspector insulin use: without termite inspector use Diabetes mellitus complication status: with kidney complications Diabetes mellitus complication detail: with chronic kidney disease Chronic kidney disease stage: stage 3 (moderate) Chronic indwelling Drake catheter Z96.0 Hypertension I10 Hypertension type: essential hypertension Frequent falls R29.6 Osteoarthritis M15.9 Osteoarthritis location: multiple joints Osteoarthritis type: unspecified Acute kidney injury superimposed on CKD N17.9; N18.9 UTI (urinary tract infection) N39.0
[2019-11-05 10:49] LABS: Glucose Point of Care 228 mg/dL (70-110)
[2019-11-05] MEDS: tamsulosin 0.4 mg Capsule PO (11:34)
[2019-11-05] MEDS: HYDROcodone-acetaminophen 5-325 mg Tablet 1 TAB PO ×2 (12:09→23:27)
--- NOTE | 2019-11-05 14:14 | CTR_ITS ---
PROCEDURE INFORMATION: Exam: CT Abdomen And Pelvis Without Contrast Exam date and time: 11/05/2019 4:20 PM Age: 79 years old Clinical indication: Abdominal pain; Additional info: Nephrolithiasis TECHNIQUE: Imaging protocol: Computed tomography of the abdomen and pelvis without contrast. Total DLP: 1039.57 mGy-cm Radiation optimization: All CT scans at this facility use at least one of these dose optimization techniques: automated exposure control; mA and/or kV adjustment per patient size (includes targeted exams where dose is matched to clinical indication); or iterative reconstruction. COMPARISON: 1. CT abdomen pelvis wo con [id number] 01/23/2019 6:[address] abdomen pelvis wo con [id number] 11/11/2018 3:15:[address] abdomen pelvis w con* [id number] 05/06/2019 12:30:52 PM FINDINGS: Limitations: The absence of intravenous contrast lessens the sensitivity of this study for solid organ abnormalities. Lungs: There is some bronchial wall thickening posterior left lung base which could represent some focal bronchitis. Correlation with clinical findings is suggested. Pleural space: There is a tiny right pleural effusion. Liver: There is no focal abnormality within the liver. Gallbladder and bile ducts: The gallbladder is normal. Pancreas: Pancreas is moderately atrophic. There are some calcifications in the proximal body and head of the pancreas not significantly changed from previous. Spleen: The spleen demonstrates punctate calcifications, consistent with remote granulomatous organism exposure. Adrenals: The adrenal glands are normal. Kidneys and ureters: There are small hyperdense cysts of both kidneys not significantly changed compared with 01/23/2019 or 11/11/2018. There is no evidence of hydronephrosis. There is no evidence of renal or ureteral calcifications. Stomach and bowel: There is no evidence of colitis/diverticulitis. Appendix: A normal appendix is identified. Intraperitoneal space: Unremarkable. No free air. No significant fluid collection. Vasculature: There is severe atherosclerotic calcification of the coronary arteries. The aorta demonstrates moderate atherosclerotic calcification. There is no evidence of an abdominal aortic aneurysm. Lymph nodes: There are calcified subcarinal and hilar lymph nodes in keeping with old granulomatous disease. Bladder: There is moderate thickening of the urinary bladder wall which is heavily trabeculated and there is diverticulum along the dome of the urinary bladder which is likely related to sequelae of chronic outlet obstruction. There is air within the urinary bladder and in the trabecula and bladder diverticulum. The air is likely from the placement of the Drake catheter. Please correlate with clinical laboratory findings to exclude any urinary tract infection. Reproductive: There is a Drake catheter in place, the balloon of the Drake catheter appears to be within the prostatic urethra. Repositioning of the Drake catheter is suggested. Bones/joints: The lumbar spine demonstrates moderate degenerative changes at multiple levels. Soft tissues: Unremarkable. CT/CT abdomen pelvis wo con [id number] IMPRESSION: 1. Malposition of Drake catheter balloon 2. No acute finding. 3. No urinary tract calculi are identified. 4. Chronic findings as described above. Radiation Dose CTDIVOL = (mGy): DLP = 1039.57 (mGy-cm)
[2019-11-05] MEDS: morphine 4 mg/mL SDV 1 mL 2 MG IVP (15:15)
[2019-11-05 16:32] LABS: Glucose Point of Care 205 mg/dL (70-110)
[2019-11-05 20:57] LABS: Glucose Point of Care 323 mg/dL (70-110)
[2019-11-06] VITALS (11 sets, daily range): BP systolic 105–163; BP diastolic 56–82; PULSE 71–110; RESP 18–24; TEMP 36.4–37; O2SAT 91–96
[2019-11-06 03:43] LABS: Hematocrit 36.2 % (42.0-52.0); Hemoglobin 11.1 g/dL (11.7-16.6); Lymphocytes # 0.5 10^3/uL (0.8-4.8); Lymphocytes % 4.4 %; Mean Corpuscular HGB Conc 30.7 g/dL (30.0-36.0); Mean Corpuscular Hemoglobin 26.5 pg (28.0-34.0); Mean Corpuscular Volume 86.4 fL (80-94); Mean Platelet Volume 10.5 fL (7.4-10.4); Monocytes # 0.5 10^3/uL (0.2-0.9); Monocytes % 4.8 %; Neutrophils # 9.1 10^3/uL (1.8-7.7); Nucleated Red Blood Cells % 0 %; Platelet Count 205 10^3/cmm (130-400); Red Blood Count 4.19 10^6/uL (4.1-5.3); Red Cell Distribution Width 15.2 % (12.1-15.1); White Blood Count 10.2 10^3/uL (4.0-10.0)
[2019-11-06 04:16] LABS: Alanine Aminotransferase 130 U/L (0-41); Albumin Level 3.3 g/dL (3.5-5.2); Alkaline Phosphatase 180 IU/L (40-130); Anion Gap 16.7 (5-19); Aspartate Amino Transferase 100 U/L (0-40); Blood Urea Nitrogen 59 mg/dL (8-23); Calcium 9.7 mg/dL (8.5-10.5); Carbon Dioxide 29 mmol/L (22-29); Chloride 99 mmol/L (98-107); Globulin 3.4 g/dL (1.3-4.6); Glucose 296 mg/dL (65-115); Magnesium 1.9 mg/dL (1.7-2.3); Osmolality Calculated 300 mOsm/kg (285-295); Phosphorus 2.3 mg/dL (2.5-4.5); Potassium 4.7 mmol/L (3.5-5.1); Sodium 140 mmol/L (136-145); Total Bilirubin 0.2 mg/dL (0.15-1.2); Total Protein 6.7 g/dL (6.6-8.7)
[2019-11-06 06:45] LABS: Glucose Point of Care 226 mg/dL (70-110)
[2019-11-06] MEDS: tamsulosin 0.4 mg Capsule PO (09:13)
[2019-11-06] MEDS: metoprolol tartrate 25 mg Tablet 12.5 MG PO ×2 (09:13→21:15)
[2019-11-06] MEDS: doxycycline 100 mg Tablet PO ×2 (09:14→17:28)
[2019-11-06] MEDS: piperacillin-tazobactam 3.375 GM in sodium chloride 0.9% (plus) 50 ML IV (09:16)
[2019-11-06] MEDS: HYDROcodone-acetaminophen 5-325 mg Tablet 1 TAB PO ×2 (09:58→21:15)
--- NOTE | 2019-11-06 10:16 | PC.SOCIAL ---
Pg 2 IMM Explained to pt Pg 2 IMM. Pt verbally understands. No questions voiced. Provided pt a copy & left on pt's bedside table. Signed, dated, & timed a copy & placed in pt's chart.
--- NOTE | 2019-11-06 11:08 | PM.PN ---
Subjective Subjective: Interval history: Feeling rough . Worried that he is having trouble with his catheter. Noted to be malpositioned on CT scan. He is worried he feels like his bladder does not completely empty. Breathing is feeling slightly better. Vitals/I&O/Wt Last Vital Signs Temp 98.4 F 11/06/19 08:00 Pulse 71 11/06/19 08:04 Resp 20 H 11/06/19 08:04 BP 163/77 11/06/19 08:00 Pulse Ox 94 11/06/19 08:04 11/05/19 11/06/19 11/06/19 22:59 06:59 14:59 Intake Total 650 / 1180 50 / 1230 360 / 360 Output Total 200 / 1200 1350 / 2550 Balance 450 / -20 -1300 / -1320 360 / 360 Physical Exam Const: COMMON NORMALS: no apparent distress and oriented x3 HENMT: COMMON NORMALS: oropharynx normal Neck/C-Spine: COMMON NORMALS: no JVD Resp: COMMON NORMALS: normal respiratory effort AUSCULTATION: wheezes and diminished lung sounds Cardio: COMMON NORMALS: no JVD, regular rhythm, S1 normal heart sound, S2 normal heart sound and no murmurs RHYTHM: regular rhythm HEART SOUNDS: S1 normal and S2 normal GI: COMMON NORMALS: normal to inspection, nondistended, normoactive bowel sounds, soft to palpation and non-tender PALPATION: Yes soft Extremity: COMMON NORMALS: no joint enlargement and no pedal edema Neuro: COMMON NORMALS: oriented x3 and moves all extremities Skin: COMMON NORMALS: no rashes or lesions noted GENERAL SKIN EXAM: no rashes or lesions noted Urinary Catheter Management^: Drake: Cath Placed During This Visit: no Reason for Continuing Indwelling Catheter: Chronic Indwelling Urinary Catheter on Admission Data : 11/06/19 03:15 11/06/19 03:15 Micro: Microbiology 11/03/19 20:48 Gram Stain - Final Sputum - Expectorated Sputum Sputum Culture - Preliminary 11/04/19 01:22 Urine Culture - Preliminary Urine Catheterized Gram Negative Rods Gram Negative Rods#2 A&P Assessment and plan (1) Gram-negative bacteremia: ESBL E. coli. Blood culture 07/14 positive Switch to Primaxin for now. Await final sensitivity. Discussed with him depending on the results he may actually require a course of IV antibiotic on discharge. Status: Acute (2) UTI (urinary tract infection): ESBL E. coli. Follow-up final sensitivity. Has a chronic Drake Change antibiotic as above for now. Status: Acute (3) Acute exacerbation of chronic obstructive airways disease: He reports slight improvement in breathing today. Continues on IV steroid, doxycycline, breathing treatments as he is still having decreased air entry, wheezing, rhonchi on examination. Continue oxygen therapy COVID-19 testing results negative Status: Acute (4) Respiratory failure, acute and chronic: As above. Currently on 3 L nasal cannula. Status: Acute Qualifiers: Respiratory failure complication: hypoxia Qualified Code(s): J96.21 - Acute and chronic respiratory failure with hypoxia (5) Aortic stenosis, mild: Echocardiogram on February 2019 shows moderate aortic stenosis Status: Chronic (6) Diabetes mellitus, type II: Low-dose sliding scale Status: Chronic Qualifiers: Diabetes mellitus alf insulin use: without superintendent terminal use Diabetes mellitus complication status: with kidney complications Diabetes mellitus complication detail: with chronic kidney disease Chronic kidney disease stage: stage 3 (moderate) Qualified Code(s): E11.22 - Type 2 diabetes mellitus with diabetic chronic kidney disease; N18.3 - Chronic kidney disease, stage 3 (moderate) (7) Chronic indwelling Drake catheter: Noted malpositioning on CT scan. No noted hydronephrosis. Nursing staff is working on trying to adjust Drake catheter, possibly replaced with a new one. Status: Chronic (8) Hypertension: Status: Chronic Qualifiers: Hypertension type: essential hypertension Qualified Code(s): I10 - Essential (primary) hypertension (9) Frequent falls: Status: Chronic (10) Osteoarthritis: Status: Chronic Qualifiers: Osteoarthritis location: multiple joints Osteoarthritis type: unspecified Qualified Code(s): M15.9 - Polyosteoarthritis, unspecified (11) Acute kidney injury superimposed on CKD: Creatinine improving. Holding lisinopril, holding Lasix Status: Acute Attestations Medical Necessity Statement*: Continue admission versus management of complicated urinary tract infection, COPD exacerbation. Coding Level of Care Code Acute Hoof Trimmer for [facility] Diagnoses Gram-negative bacteremia R78.81 UTI (urinary tract infection) N39.0 Acute exacerbation of chronic obstructive airways disease J44.1 Respiratory failure, acute and chronic J96.21 Respiratory failure complication: hypoxia Aortic stenosis, mild I35.0 Diabetes mellitus, type II E11.22; N18.3 Diabetes mellitus superintendent terminal insulin use: without alf use Diabetes mellitus complication status: with kidney complications Diabetes mellitus complication detail: with chronic kidney disease Chronic kidney disease stage: stage 3 (moderate) Chronic indwelling Drake catheter Z96.0 Hypertension I10 Hypertension type: essential hypertension Frequent falls R29.6 Osteoarthritis M15.9 Osteoarthritis location: multiple joints Osteoarthritis type: unspecified Acute kidney injury superimposed on CKD N17.9; N18.9
[2019-11-06 11:19] LABS: Glucose Point of Care 270 mg/dL (70-110)
[2019-11-06] MEDS: ipratropium-albuterol 3 mL Neb INHALATION ×2 (15:25→20:13)
[2019-11-06 17:10] LABS: Glucose Point of Care 186 mg/dL (70-110)
[2019-11-06] MEDS: ondansetron 2 mg/ML SDV 2 mL 4 MG IVP (17:55)
[2019-11-06 21:09] LABS: Glucose Point of Care 306 mg/dL (70-110)
[2019-11-07] VITALS (16 sets, daily range): BP systolic 115–167; BP diastolic 70–95; PULSE 73–112; RESP 18–28; TEMP 36–36.7; O2SAT 92–97
[2019-11-07] MEDS: enoxaparin 30 mg/0.3 mL Syringe SUBCUT ×2 (00:18→23:34)
[2019-11-07] MEDS: ipratropium-albuterol 3 mL Neb INHALATION ×5 (04:52→20:37)
[2019-11-07 05:26] LABS: Basophils % 0.1 %; Hematocrit 38.9 % (42.0-52.0); Hemoglobin 11.8 g/dL (11.7-16.6); Lymphocytes # 0.7 10^3/uL (0.8-4.8); Lymphocytes % 5.9 %; Mean Corpuscular HGB Conc 30.3 g/dL (30.0-36.0); Mean Corpuscular Volume 85.9 fL (80-94); Mean Platelet Volume 10.3 fL (7.4-10.4); Monocytes # 0.5 10^3/uL (0.2-0.9); Monocytes % 4.4 %; Neutrophils # 10.3 10^3/uL (1.8-7.7); Neutrophils % 87.8 %; Nucleated Red Blood Cells % 0 %; Platelet Count 210 10^3/cmm (130-400); Red Blood Count 4.53 10^6/uL (4.1-5.3); Red Cell Distribution Width 15.1 % (12.1-15.1); White Blood Count 11.7 10^3/uL (4.0-10.0)
[2019-11-07 05:45] LABS: Alanine Aminotransferase 193 U/L (0-41); Albumin Level 3.4 g/dL (3.5-5.2); Alkaline Phosphatase 188 IU/L (40-130); Anion Gap 16.3 (5-19); Aspartate Amino Transferase 82 U/L (0-40); Blood Urea Nitrogen 52 mg/dL (8-23); Calcium 10.2 mg/dL (8.5-10.5); Carbon Dioxide 31 mmol/L (22-29); Chloride 97 mmol/L (98-107); Globulin 3.1 g/dL (1.3-4.6); Glucose 240 mg/dL (65-115); Magnesium 1.8 mg/dL (1.7-2.3); Osmolality Calculated 294 mOsm/kg (285-295); Phosphorus 3.2 mg/dL (2.5-4.5); Potassium 5.3 mmol/L (3.5-5.1); Sodium 139 mmol/L (136-145); Total Bilirubin 0.2 mg/dL (0.15-1.2); Total Protein 6.5 g/dL (6.6-8.7)
[2019-11-07 06:56] LABS: Glucose Point of Care 206 mg/dL (70-110)
[2019-11-07] MEDS: doxycycline 100 mg Tablet PO ×2 (09:09→18:06)
[2019-11-07] MEDS: tamsulosin 0.4 mg Capsule PO (09:09)
[2019-11-07] MEDS: metoprolol tartrate 25 mg Tablet 12.5 MG PO ×2 (09:09→21:13)
[2019-11-07] MEDS: HYDROcodone-acetaminophen 5-325 mg Tablet 1 TAB PO ×3 (09:16→22:10)
[2019-11-07 10:58] LABS: Glucose Point of Care 296 mg/dL (70-110)
--- NOTE | 2019-11-07 11:20 | PM.PN ---
Subjective Subjective: Interval history: Breathing does not feel good today. He is coughing, gets short of breath easily. Does state that at home he uses 2 L of oxygen, which is the same rate as he is on currently. Vitals/I&O/Wt Last Vital Signs Temp 96.8 F L 11/07/19 08:00 Pulse 97 11/07/19 11:14 Resp 20 H 11/07/19 11:14 BP 117/74 11/07/19 08:00 Pulse Ox 96 11/07/19 11:14 11/06/19 11/07/19 11/07/19 22:59 06:59 14:59 Intake Total 510 / 870 Output Total 850 / 1550 920 / 2470 Balance -340 / -680 -920 / -1600 Physical Exam Const: COMMON NORMALS: no apparent distress and oriented x3 HENMT: COMMON NORMALS: oropharynx normal Neck/C-Spine: COMMON NORMALS: no JVD Resp: COMMON NORMALS: normal respiratory effort AUSCULTATION: wheezes and diminished lung sounds Cardio: COMMON NORMALS: no JVD, regular rhythm, S1 normal heart sound, S2 normal heart sound and no murmurs RHYTHM: regular rhythm HEART SOUNDS: S1 normal and S2 normal GI: COMMON NORMALS: normal to inspection, nondistended, normoactive bowel sounds, soft to palpation and non-tender PALPATION: Yes soft Extremity: COMMON NORMALS: no joint enlargement and no pedal edema Neuro: COMMON NORMALS: oriented x3 and moves all extremities Skin: COMMON NORMALS: no rashes or lesions noted GENERAL SKIN EXAM: no rashes or lesions noted Urinary Catheter Management^: Drake: Cath Placed During This Visit: yes Reason for Continuing Indwelling Catheter: Chronic Indwelling Urinary Catheter on Admission Urinary Catheter Date of Insertion: 11/06/19 Urinary Catheter Time of Insertion: 11:39 Data : 11/07/19 05:05 11/07/19 05:05 Micro: Microbiology 11/03/19 20:48 Gram Stain - Final Sputum - Expectorated Sputum Sputum Culture - Final 11/04/19 01:22 Urine Culture - Preliminary Urine Catheterized Escherichia coli esbl Enterococcus species 11/03/19 20:12 Blood Culture - Preliminary Blood Escherichia coli esbl A&P Assessment and plan (1) Gram-negative bacteremia: ESBL E. coli. Blood culture 07/14 positive. Continue Primaxin, awaiting placement of midline catheter to be able to complete 4 more days of antibiotic at home with meropenem twice a day with assistance of hospice nursing staff. Status: Acute (2) UTI (urinary tract infection): ESBL E. coli. And to a lesser degree Enterococcus faecalis in urine. Susceptible to penicillin, and so should be susceptible to Primaxin. Has a chronic Drake Change antibiotic as above for now. Status: Acute (3) Acute exacerbation of chronic obstructive airways disease: Breathing reports has not improved, and he does not feel ready to return home. He is coughing, wheezing, with dyspnea on exertion. Discussed with him we will escalate steroid therapy, increased to 40 mg every 6 hours. Continue breathing treatments. IV steroid, doxycycline, breathing treatments as he is still having decreased air entry, wheezing, rhonchi on examination. Continue oxygen therapy COVID-19 testing results negative Status: Acute (4) Respiratory failure, acute and chronic: As above. Currently on 2 L nasal cannula. Status: Acute Qualifiers: Respiratory failure complication: hypoxia Qualified Code(s): J96.21 - Acute and chronic respiratory failure with hypoxia (5) Aortic stenosis, mild: Echocardiogram on February 2019 shows moderate aortic stenosis Status: Chronic (6) Diabetes mellitus, type II: Low-dose sliding scale Status: Chronic Qualifiers: Diabetes mellitus mcfp insulin use: without long term acute care registered nurse use Diabetes mellitus complication status: with kidney complications Diabetes mellitus complication detail: with chronic kidney disease Chronic kidney disease stage: stage 3 (moderate) Qualified Code(s): E11.22 - Type 2 diabetes mellitus with diabetic chronic kidney disease; N18.3 - Chronic kidney disease, stage 3 (moderate) (7) Chronic indwelling Drake catheter: Noted malpositioning on CT scan. This was repositioned by nursing successfully on 11/05. Discomfort resolved. Draining well. No noted hydronephrosis. Status: Chronic (8) Hypertension: Status: Chronic Qualifiers: Hypertension type: essential hypertension Qualified Code(s): I10 - Essential (primary) hypertension (9) Frequent falls: Status: Chronic (10) Osteoarthritis: Status: Chronic Qualifiers: Osteoarthritis location: multiple joints Osteoarthritis type: unspecified Qualified Code(s): M15.9 - Polyosteoarthritis, unspecified (11) Acute kidney injury superimposed on CKD: Creatinine improving. Holding lisinopril, holding Lasix Status: Acute Additional A&P Information Supportive care otherwise Full code Attestations Medical Necessity Statement*: Continue admission for assessment management of E. coli bacteremia, complicated urinary tract infection, preparations for discharge. Coding Level of Care Code Acute Automation Software Engineer for [facility] Diagnoses Gram-negative bacteremia R78.81 UTI (urinary tract infection) N39.0 Acute exacerbation of chronic obstructive airways disease J44.1 Respiratory failure, acute and chronic J96.21 Respiratory failure complication: hypoxia Aortic stenosis, mild I35.0 Diabetes mellitus, type II E11.22; N18.3 Diabetes mellitus mcfp insulin use: without mcfp use Diabetes mellitus complication status: with kidney complications Diabetes mellitus complication detail: with chronic kidney disease Chronic kidney disease stage: stage 3 (moderate) Chronic indwelling Drake catheter Z96.0 Hypertension I10 Hypertension type: essential hypertension Frequent falls R29.6 Osteoarthritis M15.9 Osteoarthritis location: multiple joints Osteoarthritis type: unspecified Acute kidney injury superimposed on CKD N17.9; N18.9
[2019-11-07 17:22] LABS: Glucose Point of Care 247 mg/dL (70-110)
[2019-11-07 20:50] LABS: Glucose Point of Care 364 mg/dL (70-110)
[2019-11-07 20:50] LABS: Glucose Point of Care 411 mg/dL (70-110)
[2019-11-08] VITALS (14 sets, daily range): BP systolic 118–152; BP diastolic 74–90; PULSE 62–99; RESP 16–24; TEMP 36.4–37.1; O2SAT 95–98
[2019-11-08] MEDS: ipratropium-albuterol 3 mL Neb INHALATION ×4 (03:21→15:04)
[2019-11-08 05:25] LABS: Basophils % 0.1 %; Hematocrit 38.3 % (42.0-52.0); Hemoglobin 11.9 g/dL (11.7-16.6); Lymphocytes # 0.7 10^3/uL (0.8-4.8); Lymphocytes % 5.4 %; Mean Corpuscular HGB Conc 31.1 g/dL (30.0-36.0); Mean Corpuscular Hemoglobin 26.7 pg (28.0-34.0); Mean Corpuscular Volume 86.1 fL (80-94); Mean Platelet Volume 10.1 fL (7.4-10.4); Monocytes # 0.5 10^3/uL (0.2-0.9); Monocytes % 3.7 %; Neutrophils # 10.6 10^3/uL (1.8-7.7); Neutrophils % 87.3 %; Nucleated Red Blood Cells % 0 %; Platelet Count 216 10^3/cmm (130-400); Red Blood Count 4.45 10^6/uL (4.1-5.3); White Blood Count 12.2 10^3/uL (4.0-10.0)
[2019-11-08 05:45] LABS: Alanine Aminotransferase 206 U/L (0-41); Albumin Level 3.5 g/dL (3.5-5.2); Alkaline Phosphatase 176 IU/L (40-130); Anion Gap 13.8 (5-19); Aspartate Amino Transferase 67 U/L (0-40); Blood Urea Nitrogen 53 mg/dL (8-23); Calcium 10.1 mg/dL (8.5-10.5); Carbon Dioxide 31 mmol/L (22-29); Chloride 96 mmol/L (98-107); Glucose 288 mg/dL (65-115); Osmolality Calculated 289 mOsm/kg (285-295); Potassium 5.8 mmol/L (3.5-5.1); Sodium 135 mmol/L (136-145); Total Bilirubin 0.2 mg/dL (0.15-1.2); Total Protein 6.5 g/dL (6.6-8.7)
[2019-11-08 06:26] LABS: Glucose Point of Care 286 mg/dL (70-110)
--- NOTE | 2019-11-08 07:41 | US_ITS ---
WS: [id number] RIGHT UPPER QUADRANT ULTRASOUND HISTORY: RIGHT upper quadrant pain. COMPARISON: 11/05/2019. Liver: 9.4 cm in length. The entire liver is difficult to visualize in its normal position. On a prio r CT the liver. Rotated which is probably normal variant for this patient. Gallbladder: Not identified by ultrasound as it is abnormally positioned. By CT from 11/05/2019 gallbl adder. Negative. CBD: Not visualized due to rotation of the organs. Pancreas: Completely obscured by bowel gas. Right kidney: 7.8 cm in length. Moderate RIGHT renal atrophy. No obstruction or mass. Aorta and IVC: Not well visualized. No ascites. US/US abdomen limited [id number] IMPRESSION: 1. Limited RIGHT upper quadrant ultrasound. 2. Gallbladder is not identified but was normal on a prior CT of 11/05/2019.
[2019-11-08] MEDS: doxycycline 100 mg Tablet PO (09:07)
[2019-11-08] MEDS: metoprolol tartrate 25 mg Tablet 12.5 MG PO (09:07)
[2019-11-08] MEDS: tamsulosin 0.4 mg Capsule PO (09:08)
[2019-11-08] MEDS: acetaminophen 325 mg Tablet 650 MG PO (09:08)
--- NOTE | 2019-11-08 10:37 | PC.SOCIAL ---
IMM Update Pg 2 of IMM given and explained to patient who verbalized understanding. Initialed, dated, and timed and placed in chart. Copy provided to patient.
[2019-11-08 11:26] LABS: Glucose Point of Care 395 mg/dL (70-110)
[2019-11-08] MEDS: HYDROcodone-acetaminophen 5-325 mg Tablet 1 TAB PO (12:31)
[2019-11-08] MEDS: meropenem 1,000 MG in sodium chloride 0.9% (plus) 50 ML 100 MG IV (12:31)
--- NOTE | 2019-11-08 20:34 | PM.DCS ---
Discharge Providers Date of Admission: 11/03/19 22:33 Date of Discharge: November 08, 2019 Attending Provider at Admission: Maia Barrera MD Attending Provider at Discharge: David Allen Diagnoses at Discharge Discharge Diagnosis (1) Gram-negative bacteremia: Status: Acute Problem details: ESBL E. coli (2) UTI (urinary tract infection): Status: Acute Problem details: ESBL E. coli, and small colony of enterococcus, without bacteremia, possibly colonizer (3) Acute exacerbation of chronic obstructive airways disease: Status: Acute (4) Respiratory failure, acute and chronic: Status: Acute Qualifiers: Respiratory failure complication: hypoxia Qualified Code(s): J96.21 - Acute and chronic respiratory failure with hypoxia (5) Aortic stenosis, mild: Status: Chronic (6) Diabetes mellitus, type II: Status: Chronic Qualifiers: Diabetes mellitus jail insulin use: without joint terminal attack controller use Diabetes mellitus complication status: with kidney complications Diabetes mellitus complication detail: with chronic kidney disease Chronic kidney disease stage: stage 3 (moderate) Qualified Code(s): E11.22 - Type 2 diabetes mellitus with diabetic chronic kidney disease; N18.3 - Chronic kidney disease, stage 3 (moderate) (7) Chronic indwelling Drake catheter: Status: Chronic (8) Hypertension: Status: Chronic Qualifiers: Hypertension type: essential hypertension Qualified Code(s): I10 - Essential (primary) hypertension (9) Frequent falls: Status: Chronic (10) Osteoarthritis: Status: Chronic Problem details: chronic back and joint pains Qualifiers: Osteoarthritis location: multiple joints Osteoarthritis type: unspecified Qualified Code(s): M15.9 - Polyosteoarthritis, unspecified (11) Acute kidney injury superimposed on CKD: Status: Acute Reason for Visit Reason for Visit: Reason For Visit: SOB Hospital Course Hospital Course: Pleasant 79-year-old gentleman with history of COPD on chronic oxygen of 2 L by nasal cannula at home, aortic stenosis, CHF, BPH, with chronic indwelling Drake catheter, recurrent ESBL urinary infection, who was admitted after presenting with shortness of breath, treated for acute exacerbation of COPD, respiratory failure, testing negative for COVID-19, treated with steroids, doxycycline, breathing treatments, oxygen support. Received Lasix due to CHF. Zosyn was added for urinary tract infection initially, subsequently switched to Primaxin due to ESBL, also with ESBL E. coli bacteremia. Small colony of enterococcus noted in urine, but not believed active pathogen and should have some coverage from the Carbapenem. CT abdomen pelvis was performed with finding of malpositioned Drake catheter. This was fixed. He will complete 4 more days of IV antibiotic with meropenem at SNF, prior to returning home to resume hospice care. Follow-up with urology regarding chronic indwelling Drake catheter if this is possible. His oxygenation gradually improved, today requiring only 1 L of oxygen by nasal cannula. He still has wheezing, cough, some subjective dyspnea. Due to this will complete course with doxycycline and steroid taper. Potassium will be rechecked, and supplement at this time is held due to rising potassium level. Please follow-up the repeat test result. Physical Exam Const: COMMON NORMALS: no apparent distress and oriented x3 HENMT: COMMON NORMALS: oropharynx normal Neck/C-Spine: COMMON NORMALS: no JVD Resp: COMMON NORMALS: normal respiratory effort AUSCULTATION: wheezes (Mild, significantly better today.) and diminished lung sounds Cardio: COMMON NORMALS: no JVD, regular rhythm, S1 normal heart sound, S2 normal heart sound and no murmurs RHYTHM: regular rhythm HEART SOUNDS: S1 normal and S2 normal GI: COMMON NORMALS: normal to inspection, nondistended, normoactive bowel sounds, soft to palpation and non-tender PALPATION: Yes soft Extremity: COMMON NORMALS: no joint enlargement and no pedal edema Neuro: COMMON NORMALS: oriented x3 and moves all extremities Skin: COMMON NORMALS: no rashes or lesions noted GENERAL SKIN EXAM: no rashes or lesions noted Urinary Catheter Management^: Drake: Cath Placed During This Visit: yes Reason for Continuing Indwelling Catheter: Chronic Indwelling Urinary Catheter on Admission Urinary Catheter Date of Insertion: 11/06/19 Urinary Catheter Time of Insertion: 11:39 Discharge Data Data Completed and Pending: Completed Studies During Hospitalization Category Date Time Status CT abdomen pelvis wo con [id number] Rout ine Cat Scan 11/05/19 14:14 Completed XR chest 1V saniya ble [id number] Stat Exams 11/05/19 10:47 Completed XR chest 1V saniya ble [id number] Urgent Exams 11/03/19 19:51 Com[place] lim[place] d [id number] Routine Ultrasound 11/08/19 07:41 Completed Labs from last 24 hours 11/08/19 11/08/19 11/08/19 11:06 06:14 05:05 WBC RBC Hgb Hct MCV MCH MCHC RDW Plt Count MPV Neut % (Auto) Lymph % (Auto) [place] % (Auto) Eos % (Auto) Baso % (Auto) Neut # (Auto) Lymph # (Auto) [place] # (Auto) Eos # (Auto) Baso # (Auto) Nucleated RBC % (a uto) Nucleated RBCs # Sodium 135 L Potassium 5.8 H Chloride 96 L Carbon Dioxide 31 H Anion Gap 13.8 BUN 53 H Creatinine 1.6 H Glucose 288 H POC Glucose 395 286 Calculated Osmolal ity 289 Calcium 10.1 Total Bilirubin 0.2 AST 67 H ALT 206 H Alkaline Phosphata se 176 H Total Protein 6.5 L Albumin 3.5 Globulin 3.0 11/08/19 11/07/19 11/07/19 05:05 20:39 20:38 WBC 12.2 H RBC 4.45 Hgb 11.9 Hct 38.3 L MCV 86.1 MCH 26.7 L MCHC 31.1 RDW 15.0 Plt Count 216 MPV 10.1 Neut % (Auto) 87.3 Lymph % (Auto) 5.4 [place] % (Auto) 3.7 Eos % (Auto) 0.0 Baso % (Auto) 0.1 Neut # (Auto) 10.6 H Lymph # (Auto) 0.7 L [place] # (Auto) 0.5 Eos # (Auto) 0.0 Baso # (Auto) 0.0 Nucleated RBC % (a uto) 0 Nucleated RBCs # 0.0 Sodium Potassium Chloride Carbon Dioxide Anion Gap BUN Creatinine Glucose POC Glucose 364 411 Calculated Osmolal ity Calcium Total Bilirubin AST ALT Alkaline Phosphata se Total Protein Albumin Globulin Vitals: Last Vital Signs Temp 98.7 F 11/08/19 15:31 Pulse 90 11/08/19 15:31 Resp 18 11/08/19 15:31 BP 118/74 11/08/19 15:31 Pulse Ox 95 11/08/19 15:31 Discharge Plan Discharge Patient Disposition: Xfer SNF Condition: Stable Prescriptions: New meropenem 1 gram recon soln 1 gm IVP Q12H 4 Days Qty: 7 RF: 0 doxycycline monohydrate 100 mg Tablet 100 mg PO BID Qty: 4 RF: 0 tamsulosin 0.4 mg Capsule 0.4 mg PO DAILY Qty: 30 RF: 0 prednisone 20 mg tablet See Rx Instructions .ROUTE .COMPLEX 12 Days Qty: 21 RF: 0 Continued metoprolol tartrate 12.5 mg PO BID RF: 0 metformin 500 mg Tablet 500 mg PO BID RF: 0 ipratropium-albuterol 0.5 mg-3 mg(2.5 mg base)/3 mL solution for nebulization 2.5 ml INHALATION Q4H PRN (Reason: Shortness Of Breath Or Wheezing) RF: 0 hydrocodone-acetaminophen 5-325 mg tablet 1 tab PO Q6H PRN (Reason: Pain) RF: 0 Changed furosemide 40 mg Tablet See Rx Instructions .ROUTE .COMPLEX Qty: 0 RF: 0 Held lisinopril 5 mg Tablet 5 mg PO DAILY RF: 0 Hold Instructions: Resume on 11/22/19. Discontinued potassium chloride 20 mEq Tablet Extended Release 20 meq PO DAILY RF: 0 Discharge Orders: Discharge Order (Routine); Ordered 11/08/19 Ordered By: David Allen Other Ambulatory Orders: Basic Metabolic Panel (Routine) Timeframe: 3 Days Facility: [facility] - Location: Lab - Main Lab Ordered By: David Allen Referrals: [facility] [Outside] - 4-7 days Erik Adkins DO [Family Provider] - 4-7 days Villa Bustillos MD [Physician] - 11/20/19 1:30 pm Discharge Activity: Resume usual activity and Increase activity as tolerated Activity Restrictions/Additional Instructions: Complete 4 more days of meropenem IV for complicated UTI with ESBL E. coli bacteremia. Oxygen by nasal cannula, 1-2 L, titrate to goal saturation 92% Maintain chronic indwelling Drake catheter. Continue follow-up with urology. Diet: Cardiac, consistent carbohydrate, low potassium until increase potassium level improves. Avoid NSAIDs. Discharge Date/Time: 11/08/19 16:53 Discharge Attestations Time Spent in Discharge Care*: greater than 30 min Quality Metrics Clinical Quality Measures During this hospital stay, did patient experience: None Coding Level of Care Code Acute Employee Communications Specialist for g Fwd Diagnoses Gram-negative bacteremia R78.81 UTI (urinary tract infection) N39.0 Acute exacerbation of chronic obstructive airways disease J44.1 Respiratory failure, acute and chronic J96.21 Respiratory failure complication: hypoxia Aortic stenosis, mild I35.0 Diabetes mellitus, type II E11.22; N18.3 Diabetes mellitus joint terminal attack controller insulin use: without joint terminal attack controller use Diabetes mellitus complication status: with kidney complications Diabetes mellitus complication detail: with chronic kidney disease Chronic kidney disease stage: stage 3 (moderate) Chronic indwelling Drake catheter Z96.0 Hypertension I10 Hypertension type: essential hypertension Frequent falls R29.6 Osteoarthritis M15.9 Osteoarthritis location: multiple joints Osteoarthritis type: unspecified Acute kidney injury superimposed on CKD N17.9; N18.9
== END 2019-11-08 16:53 | disposition skilled nursing facility (03) | DRG 190 ==
LOC: ER 21:34 → ICU 23:00 → MEDSURG 11-04 16:30
PROVIDERS: Family Medicine; Admitting Provider Hospitalist; Emergency Provider Emergency Medicine; Family Provider Family Medicine; Visit Provider Internal Medicine
DX: J44.1 Chronic obstructive pulmonary disease with (acute) exacerbation (principal); J96.21 Acute and chronic respiratory failure with hypoxia; T83.511A Infection and inflammatory reaction due to indwelling urethral catheter, initial encounter; N13.8 Other obstructive and reflux uropathy; I13.0 Hypertensive heart and chronic kidney disease with heart failure and stage 1 through stage 4 chronic kidney disease, or unspecified chronic kidney disease; I50.32 Chronic diastolic (congestive) heart failure; N17.9 Acute kidney failure, unspecified; N40.1 Benign prostatic hyperplasia with lower urinary tract symptoms; Z96.0 Presence of urogenital implants; Z99.81 Dependence on supplemental oxygen; Z91.19 Patient's noncompliance with other medical treatment and regimen; E11.22 Type 2 diabetes mellitus with diabetic chronic kidney disease; N18.3 Chronic kidney disease, stage 3 (moderate); I35.0 Nonrheumatic aortic (valve) stenosis; M19.90 Unspecified osteoarthritis, unspecified site; G89.29 Other chronic pain; R29.6 Repeated falls; Y73.1 Therapeutic (nonsurgical) and rehabilitative gastroenterology and urology devices associated with adverse incidents; B96.20 Unspecified Escherichia coli [E. coli] as the cause of diseases classified elsewhere; Z79.891 Long term (current) use of opiate analgesic; Z79.84 Long term (current) use of oral hypoglycemic drugs
CPT/HCPCS: 12345; 36415; 36416; 36569; 36600; 51702; 71045; 74176; 76705; 80048; 80053; 81001; 82248; 82805; 82962; 83605; 83735; 83880; 84100; 85025; 87040; 87070; 87077; 87086; 87186; 87205; 87635; 87804; 94640; 96372; 96374; 96375; 97110; 97116; 97161; 97530; 99283; J0743; J1650; J1815; J1940; J2185; J2270; J2405; J2543; J2920; J2930; J7050; J7512

== ENCOUNTER 2020-01-25 14:37 | Emergency (ER) | payer MEDICARE, MEDICAID, SELFPAY ==
[2020-01-25 14:38] VITALS: BMI 30.4
[2020-01-25 14:47] VITALS: BP 166/92; PULSE 101; RESP 22; TEMP 36.9; O2SAT 100
--- NOTE | 2020-01-25 14:53 | XR_ITS ---
WS: [id number] Portable AP upright chest, 01/25/2020 Clinical Data: SOB Comparison: Portable chest, 11/05/2019. Findings: No nodules, masses or effusions are seen. The heart is normal. The pulmonary vascularity is not increased. No pneumonia or pneumothorax is seen. There is elevation of the right diaphragm uncha nged. The aortic arch and descending aorta show calcification and tortuosity. Monitor leads on the ch est wall. XR/XR chest 1V portable [id number] Impression: Atherosclerosis.
[2020-01-25 15:29] LABS: Basophils # 0.1 10^3/uL (0.0-0.1); Basophils % 0.6 %; Eosinophils # 0.7 10^3/uL (0.0-0.8); Eosinophils % 6.1 %; Hematocrit 37.6 % (42.0-52.0); Hemoglobin 11.2 g/dL (11.7-16.6); Lymphocytes # 1.4 10^3/uL (0.8-4.8); Mean Corpuscular HGB Conc 29.8 g/dL (30.0-36.0); Mean Corpuscular Hemoglobin 26.1 pg (28.0-34.0); Mean Corpuscular Volume 87.6 fL (80-94); Mean Platelet Volume 9.8 fL (7.4-10.4); Monocytes # 1.1 10^3/uL (0.2-0.9); Neutrophils # 7.72 10^3/uL (1.8-7.7); Neutrophils % 69.8 %; Nucleated Red Blood Cells % 0 %; Platelet Count 218 10^3/cmm (130-400); Red Blood Count 4.29 10^6/uL (4.1-5.3); Red Cell Distribution Width 15.1 % (12.1-15.1)
[2020-01-25] MEDS: sodium chloride 0.9% 1,000 ML 999 ML IV (15:51)
[2020-01-25 16:18] LABS: Blood Gas Operator Identificat amh; Blood Gas Sample Type Venous; Oxygen Device NC
[2020-01-25 16:21] LABS: PCO2 VBG 65.6 mmHg (41-51); pH VBG 7.31 (7.32-7.42)
[2020-01-25 16:22] LABS: Base Excess VBG 4.8 mmol/L (-3.0-3.0); HCO3 VBG 32.9 mmol/L (24-28)
[2020-01-25 16:47] LABS: Alanine Aminotransferase 11 U/L (0-41); Albumin Level 3.8 g/dL (3.5-5.2); Alkaline Phosphatase 112 IU/L (40-130); Anion Gap 11.9 (5-19); Aspartate Amino Transferase 14 U/L (0-40); Blood Urea Nitrogen 25 mg/dL (8-23); Calcium 9.7 mg/dL (8.5-10.5); Carbon Dioxide 30 mmol/L (22-29); Chloride 101 mmol/L (98-107); Creatinine Clr Calc Pharmacy 46.0281; Globulin 2.7 g/dL (1.3-4.6); Glucose 118 mg/dL (65-115); NT Pro B Type Natriuretic Pept 302 pg/mL (0-450); Osmolality Calculated 286 mOsm/kg (285-295); Potassium 3.9 mmol/L (3.5-5.1); Sodium 139 mmol/L (136-145); Total Bilirubin 0.2 mg/dL (0.15-1.2); Total Protein 6.5 g/dL (6.6-8.7)
--- NOTE | 2020-01-25 17:05 | W.ED.SOB ---
HPI - SOB/Dyspnea General: Chief Complaint: Shortness of Breath/Dyspnea Stated Complaint: SOB Time Seen by Provider: 01/25/20 14:39 History of Present Illness: HPI Narrative: 79-year-old male with chronic respiratory failure on 2 to 3 L of oxygen chronically presents to the emergency department with a several week history of worsening shortness of breath and nonproductive cough. Patient reports that he has had symptoms very similar to this multiple times in the past. Patient denies any fever chills or contacts with known coronavirus patients. Patient denies any nausea or vomiting. He reports he is generally weak. Patient does not have any other signs or symptoms. MD elicited complaint: shortness of breath and cough Pertinent past history: COPD and congestive heart failure Context: recent illness Timing: constant and progressively worsening Severity: mild Exacerbating factors: exertion and movement Relieving factors: oxygen and bronchodilators Known history of: COPD and congestive heart failure Associated symptoms: Reports chest congestion and cough; Deny abdominal pain, chest pain, diaphoresis, dizziness, extremity pain, fever(s), hemoptysis, lightheadedness or palpitations Treatment prior to arrival: oxygen and bronchodilator Review of Systems General: Reports: 10 or more systems reviewed and unremarkable except in HPI and below Const: Denies: fever(s) or diaphoresis Card: Denies: chest pain, palpitations or lightheadedness Resp: Reports: chest congestion; Denies: hemoptysis GI: Denies: abdominal pain Musc: Denies: extremity pain Neuro: Denies: dizziness PFSH ED PFSH: Medical History Aortic stenosis, mild BPH with urinary obstruction CHF (congestive heart failure) Chronic kidney disease, stage 3 COPD (chronic obstructive pulmonary disease) COPD (chronic obstructive pulmonary disease) Diabetes mellitus, type II History of ESBL E. coli infection urine Hypertension Osteoarthritis chronic back and joint pains Surgical History No pertinent past surgical history denies any surgeries Family History Family/Other No problems noted. Social History Smoking and tobacco status: never smoked Alcohol intake: never Marital status: / Current occupational status: retired and disabled Physical Exam Const: COMMON NORMALS: no acute distress, average body habitus, patient oriented x3, no limitations, healthy appearing, alert and well nourished HENMT: COMMON NORMALS: normocephalic HEAD & SCALP: normocephalic Eye: COMMON NORMALS: Equal, round and reactive pupils present, EOMs intact bilaterally and conjunctivae normal CONJUNCTIVA: Yes conjunctivae normal PUPIL: Yes Equal, round and reactive pupils present Neck/C-Spine: COMMON NORMALS: full ROM, no lymphadenopathy, supple, no meningeal signs, no JVD, Thyroid normal and No carotid bruits THYROID: Thyroid normal Chest: COMMONS NORMALS: normal inspection of the chest and normal palpation of entire chest wall Resp: COMMON NORMALS: normal respiratory effort, No retractions, No use of accessory muscles, clear to auscultation bilaterally and percussion normal AUSCULTATION: clear to auscultation bilaterally PERCUSSION: percussion normal Cardio: COMMON NORMALS: no JVD GI: COMMON NORMALS: Normal to inspection, nondistended, normoactive bowel sounds present, Soft to palpation, non-tender, No hepatosplenomegaly present, no masses and no bruits PALPATION: Yes Soft to palpation and Yes No hepatosplenomegaly present : COMMON NORMALS: Yes no CVA tenderness BLADDER/KIDNEY EXAM: Yes no CVA tenderness Back/Pelvis: COMMON NORMALS: no CVA tenderness Extremity: COMMON NORMALS: normal to inspection, full ROM, capillary refill normal, no joint enlargement, no clubbing, cyanosis or edema (Pitting edema bilateral lower extremities), no calf tenderness and no pedal edema Neuro: COMMON NORMALS: patient oriented x3 SENSORIUM/ORIENTATION: Yes alert MENINGEAL SIGNS: Yes no meningeal signs Skin: COMMON NORMALS: no rashes or lesions noted, no wounds, turgor normal, no jaundice, no petechiae and no mottling GENERAL SKIN EXAM: no rashes or lesions noted and turgor normal Course Vital Signs: Vital signs: Vital Signs Temperature 98.5 F 01/25/20 14:47 Pulse Rate 101 H 01/25/20 14:47 Respiratory Rate 22 H 01/25/20 14:47 Blood Pressure 166/92 01/25/20 14:47 Pulse Oximetry 100 01/25/20 14:47 MDM - SOB/Dyspnea MDM Narrative: Medical decision making narrative: 79-year-old male in with chronic respiratory failure with subacute shortness of breath and cough. Physical exam is not particularly concerning he does have some edema in his lower extremities. The patient's work-up here was largely unremarkable he has very stable vital signs he does not meet criteria for admission to the hospital we discussed that given his chronic conditions is probably not a good idea for him to come in the hospital anyway. I think he is stable to treat as an outpatient we will treat him as a COPD exacerbation of asked him to increase his Lasix for a couple of days as well. Follow-up and return precautions were discussed. Lab Data: Labs: Lab Results 01/25/20 01/25/20 01/25/20 Range/Units 15:01 15:01 15:01 WBC 11.0 H (4.0-10.0) 10^3/ uL RBC 4.29 (4.1-5.3) 10^6/u L Hgb 11.2 L (11.7-16.6) g/dL Hct 37.6 L (42.0-52.0) % MCV 87.6 (80-94) fL MCH 26.1 L (28.0-34.0) pg MCHC 29.8 L (30.0-36.0) g/dL RDW 15.1 (12.1-15.1) % Plt Count 218 (130-400) 10^3/c mm MPV 9.8 (7.4-10.4) fL Neut % (Auto) 69.8 % Lymph % (Auto) 13.0 % [place] % (Auto) 10.0 % Eos % (Auto) 6.1 % Baso % (Auto) 0.6 % Neut # (Auto) 7.72 H (1.8-7.7) 10^3/u L Lymph # (Auto) 1.4 (0.8-4.8) 10^3/u L [place] # (Auto) 1.1 H (0.2-0.9) 10^3/u L Eos # (Auto) 0.7 (0.0-0.8) 10^3/u L Baso # (Auto) 0.1 (0.0-0.1) 10^3/u L Nucleated RBC % (a uto) 0 % Nucleated RBCs # 0.0 /100WBC Specimen Type Sample Site Shaun Test VBG pH (7.32-7.42) VBG pCO2 (41-51) mmHg VBG pO2 (25-40) mmHg VBG HCO3 (24-28) mmol/L VBG Base Excess (-3.0-3.0) mmol/ L VBG Hematocrit O2 Delivery Device Automobile Bumper Straightener ID Sodium 139 (136-145) mmol/L Potassium 3.9 (3.5-5.1) mmol/L Chloride 101 (98-107) mmol/L Carbon Dioxide 30 H (22-29) mmol/L Anion Gap 11.9 (5-19) BUN 25 H (8-23) mg/dL Creatinine 1.4 H (0.7-1.2) mg/dL Glucose 118 H (65-115) mg/dL Calculated Osmolal ity 286 (285-295) mOsm/k g Lactic Acid 1.0 (0.5-2.2) mmol/L Calcium 9.7 (8.5-10.5) mg/dL Total Bilirubin 0.2 (0.15-1.2) mg/dL AST 14 (0-40) U/L ALT 11 (0-41) U/L Alkaline Phosphata se 112 (40-130) IU/L NT-Pro-B Natriuret Pep 302 (0-450) pg/mL Total Protein 6.5 L (6.6-8.7) g/dL Albumin 3.8 (3.5-5.2) g/dL Globulin 2.7 (1.3-4.6) g/dL // Range/Units 16:07 WBC (4.0-10.0) 10^3/ uL RBC (4.1-5.3) 10^6/u L Hgb (11.7-16.6) g/dL Hct (42.0-52.0) % MCV (80-94) fL MCH (28.0-34.0) pg MCHC (30.0-36.0) g/dL RDW (12.1-15.1) % Plt Count (130-400) 10^3/c mm MPV (7.4-10.4) fL Neut % (Auto) % Lymph % (Auto) % [place] % (Auto) % Eos % (Auto) % Baso % (Auto) % Neut # (Auto) (1.8-7.7) 10^3/u L Lymph # (Auto) (0.8-4.8) 10^3/u L [place] # (Auto) (0.2-0.9) 10^3/u L Eos # (Auto) (0.0-0.8) 10^3/u L Baso # (Auto) (0.0-0.1) 10^3/u L Nucleated RBC % (a uto) % Nucleated RBCs # /100WBC Specimen Type Venous Sample Site Not Reportable Shaun Test N/a VBG pH 7.31 L (7.32-7.42) VBG pCO2 65.6 H* (41-51) mmHg VBG pO2 32.0 (25-40) mmHg VBG HCO3 32.9 H (24-28) mmol/L VBG Base Excess 4.8 H (-3.0-3.0) mmol/ L VBG Hematocrit Not Reportable O2 Delivery Device Nc Automobile Bumper Straightener ID amh Sodium (136-145) mmol/L Potassium (3.5-5.1) mmol/L Chloride (98-107) mmol/L Carbon Dioxide (22-29) mmol/L Anion Gap (5-19) BUN (8-23) mg/dL Creatinine (0.7-1.2) mg/dL Glucose (65-115) mg/dL Calculated Osmolal ity (285-295) mOsm/k g Lactic Acid (0.5-2.2) mmol/L Calcium (8.5-10.5) mg/dL Total Bilirubin (0.15-1.2) mg/dL AST (0-40) U/L ALT (0-41) U/L Alkaline Phosphata se (40-130) IU/L NT-Pro-B Natriuret Pep (0-450) pg/mL Total Protein (6.6-8.7) g/dL Albumin (3.5-5.2) g/dL Globulin (1.3-4.6) g/dL Discharge Plan Discharge Patient Disposition: Home, Self-Care Clinical Impression: Acute exacerbation of chronic obstructive airways disease, Chronic kidney disease, stage 3 Condition: Stable Prescriptions: New doxycycline hyclate 100 mg tablet 100 mg PO BID 7 Days Qty: 14 RF: 0 No Action metoprolol tartrate 25 mg Tablet 12.5 mg PO BID Qty: 0 RF: 0 lisinopril 5 mg Tablet 5 mg PO DAILY RF: 0 Hold Instructions: Resume on 11/22/19. metformin 500 mg Tablet 500 mg PO BID RF: 0 ipratropium-albuterol 0.5 mg-3 mg(2.5 mg base)/3 mL solution for nebulization 2.5 ml INHALATION Q4H PRN (Reason: Shortness Of Breath Or Wheezing) RF: 0 hydrocodone-acetaminophen 5-325 mg tablet 1 tab PO Q6H PRN (Reason: Pain) RF: 0 tamsulosin 0.4 mg Capsule 0.4 mg PO DAILY Qty: 30 RF: 0 Xanax 0.5 mg Tablet 0.5 mg PO Q4H PRN (Reason: Anxiety) RF: 0 furosemide 40 mg tablet 40 mg PO DAILY RF: 0 Discharge Orders: Discharge Order (Routine); Ordered 01/25/20 Ordered By: Richie Sierra Referrals: Erik Adkins DO [Primary Care Provider] - Discharge Diet: Advance as tolerated Discharge Activity: Limit activity as instructed Patient Instructions: Chronic Obstructive Pulmonary Disease (ED) Coding Level of Care Code ED Aircraft Structural Repair Mechanic for Andriy Dhillon
[2020-01-25 20:05] VITALS: BP 152/74; PULSE 84; RESP 20; O2SAT 98
== END 2020-01-25 20:05 | disposition home or self-care (01) ==
PROVIDERS: Emergency Provider Family Medicine; PCP Family Medicine
DX: J44.1 Chronic obstructive pulmonary disease with (acute) exacerbation (principal); I13.0 Hypertensive heart and chronic kidney disease with heart failure and stage 1 through stage 4 chronic kidney disease, or unspecified chronic kidney disease; E11.22 Type 2 diabetes mellitus with diabetic chronic kidney disease; N18.3 Chronic kidney disease, stage 3 (moderate); I50.9 Heart failure, unspecified; Z79.84 Long term (current) use of oral hypoglycemic drugs
CPT/HCPCS: 12345; 71045; 80053; 82803; 83605; 83880; 85025; 87040; 96360; 99282; 99284; J7030

== ENCOUNTER 2020-02-21 18:24 | Emergency (ER) | payer MEDICARE, MEDICAID, SELFPAY ==
[2020-02-21 18:24] VITALS: BP 140/81; PULSE 91; RESP 20; TEMP 36.4; O2SAT 99; BMI 30.4
[2020-02-21 19:01] VITALS: BP 122/82; PULSE 89; RESP 22; O2SAT 100
[2020-02-21 19:01] LABS: Basophils # 0.1 10^3/uL (0.0-0.1); Basophils % 0.5 %; Eosinophils # 0.7 10^3/uL (0.0-0.8); Hemoglobin 10.4 g/dL (11.7-16.6); Lymphocytes # 1.6 10^3/uL (0.8-4.8); Lymphocytes % 14.4 %; Mean Corpuscular HGB Conc 29.7 g/dL (30.0-36.0); Mean Corpuscular Hemoglobin 26.2 pg (28.0-34.0); Mean Corpuscular Volume 88.2 fL (80-94); Mean Platelet Volume 10.8 fL (7.4-10.4); Monocytes # 0.7 10^3/uL (0.2-0.9); Monocytes % 6.5 %; Neutrophils % 72.3 %; Nucleated Red Blood Cells % 0 %; Platelet Count 218 10^3/cmm (130-400); Red Blood Count 3.97 10^6/uL (4.1-5.3); Red Cell Distribution Width 15.2 % (12.1-15.1); White Blood Count 11.4 10^3/uL (4.0-10.0)
--- NOTE | 2020-02-21 19:09 | PC.NURSE ---
WHILE AT BEDSIDE PT IS IN NAD. PT REPORT GIVEN TO SHANTI INTERNET PROJECT MANAGER ASSUMED CARE.
[2020-02-21 19:21] LABS: Lactate (Lactic Acid level) 1.2 mmol/L (0.5-2.2)
[2020-02-21 19:22] LABS: Alanine Aminotransferase 9 U/L (0-41); Albumin Level 3.4 g/dL (3.5-5.2); Alkaline Phosphatase 90 IU/L (40-130); Anion Gap 13.1 (5-19); Aspartate Amino Transferase 13 U/L (0-40); Blood Urea Nitrogen 32 mg/dL (8-23); C Reactive Protein 17.6 mg/L (0.0-4.9); Calcium 8.5 mg/dL (8.5-10.5); Carbon Dioxide 28 mmol/L (22-29); Chloride 96 mmol/L (98-107); Glucose 167 mg/dL (65-115); Osmolality Calculated 277 mOsm/kg (285-295); Potassium 4.1 mmol/L (3.5-5.1); Sodium 133 mmol/L (136-145); Total Bilirubin 0.2 mg/dL (0.15-1.2); Total Protein 6.4 g/dL (6.6-8.7)
[2020-02-21 19:25] LABS: Creatinine Clr Calc Pharmacy 33.9154
[2020-02-21 19:30] LABS: Specific Gravity, Urine 1.015 (1.005-1.030); Urine Appearance Hazy (CLEAR); Urine Color Yellow (Yellow); pH Urine 5 (5-7)
[2020-02-21 19:31] LABS: Add Urine Microscopic? YES; Bacteria Urine 1+; Bilirubin Urine Neg (NEGATIVE); Blood Urine Neg (Negative); Glucose Urine UA Norm (Normal); Ketones Urine Negative (Negative); Leukocyte Esterase Urine 2+ (Negative); Nitrate Urine Negative (Negative); Protein Urine Neg (Negative); RBC Urine 0-4 /hpf (0-2); Squamous Epithelial Cell Urine 0-4 (0-5); Urobilinogen Urine Neg (Negative); WBC Urine 55-80 /hpf (0-5)
[2020-02-21 19:32] LABS: Add Urine Culture? Yes
--- NOTE | 2020-02-21 19:40 | PC.NURSE ---
during pt rounds, pt placed on nasal cannula that had become displaced. pt states improved work of breathing
[2020-02-21 20:48] VITALS: RESP 20
[2020-02-21] MEDS: morphine 4 mg/mL SDV 1 mL IVP (20:48)
[2020-02-21] MEDS: cefTRIAXone 1,000 MG in sodium chloride 0.9% (plus) 50 ML 100 MG IV (20:50)
--- NOTE | 2020-02-21 21:09 | W.ED.MALEGU ---
HPI - Male Genitourinary General: Chief complaint: Urogenital-Male Stated complaint: GENITAL PAIN Time Seen by Provider: 02/21/20 18:27 Source: patient Mode of arrival: EMS Limitations: no limitations History of Present Illness: HPI Narrative: 79-year-old gentleman with a chronic Drake presents to the emergency department with complaints of dysuria. He says it hurts whenever he tries to urinate. He says he knows it is a UTI. He denies fever, flank pain, nausea or vomiting. He does have come vague abdominal pain that he says is also chronic. Complaint: dysuria Onset (ago): year(s) (1) Duration: constant Severity scale (1-10): 5 Quality: burning Relieving factors: none Exacerbating factors: none Associated symptoms: Deny dysuria, nausea or vomiting Review of Systems General: Reports: 10 or more systems reviewed and unremarkable except in HPI and below Const: Denies: fever(s), chills or body aches Eyes: Denies: change in vision or blurry vision ENMT: Denies: throat pain, enlarged tonsils, odynophagia, hoarseness, mouth pain or swelling of lips/tongue Card: Denies: palpitations, irregular heart rhythm, edema or swelling of feet/ankles Resp: Denies: dyspnea, productive cough or non-productive cough GI: Reports: abdominal pain; Denies: nausea or vomiting : Denies: flank pain, dysuria, urinary frequency, urinary urgency or urinary hesitancy Musc: Denies: neck pain, back pain or extremity swelling Skin/Breast: Denies: rash, pruritus or erythema Neuro: Denies: headache(s), numbness in extremities or weakness in extremities Endo: Denies: polyuria, polydipsia or tired all the time PFSH ED PFSH: Medical History (Reviewed 02/21/20 @ 22:46 by Neal Pratt MD, [facility] [place]) Aortic stenosis, mild BPH with urinary obstruction CHF (congestive heart failure) Chronic kidney disease, stage 3 COPD (chronic obstructive pulmonary disease) COPD (chronic obstructive pulmonary disease) Diabetes mellitus, type II History of ESBL E. coli infection urine Hypertension Osteoarthritis chronic back and joint pains Surgical History (Reviewed 02/21/20 @ 22:46 by Neal Pratt MD, [facility] [place]) No pertinent past surgical history denies any surgeries Family History (Reviewed 02/21/20 @ 22:46 by Neal Pratt MD, [facility] [place]) Family/Other No problems noted. Social History (Reviewed 02/21/20 @ 22:46 by Neal Pratt MD, [facility] [place]) Smoking and tobacco status: never smoked Alcohol intake: never Marital status: / Current occupational status: retired and disabled Physical Exam Const: COMMON NORMALS: no acute distress, average body habitus, patient oriented x3, no limitations, healthy appearing, alert and well nourished HENMT: COMMON NORMALS: normocephalic, atraumatic and moist oral mucous membranes HEAD & SCALP: normocephalic and atraumatic Neck/C-Spine: COMMON NORMALS: no meningeal signs and no JVD Resp: COMMON NORMALS: normal respiratory effort, No retractions, No use of accessory muscles, clear to auscultation bilaterally and percussion normal AUSCULTATION: clear to auscultation bilaterally PERCUSSION: percussion normal Cardio: COMMON NORMALS: no JVD, regular rate, regular rhythm, S1 normal heart sound present, S2 normal heart sound present, No gallops present (Cardio), No clicks present (Cardio), No murmurs present (Cardio), No rub (Cardio) and Peripheral pulses 2+ throughout RATE: regular rate RHYTHM: regular rhythm HEART SOUNDS: S1 normal heart sound present and S2 normal heart sound present PERIPHERAL PULSES: Peripheral pulses 2+ throughout GI: COMMON NORMALS: Normal to inspection, nondistended, normoactive bowel sounds present, Soft to palpation, non-tender, No hepatosplenomegaly present, no masses and no bruits PALPATION: Yes Soft to palpation and Yes No hepatosplenomegaly present : COMMON NORMALS: Yes no CVA tenderness, Yes Testes normal, Yes scrotum normal, Yes no scrotal swelling and Yes No hernias present BLADDER/KIDNEY EXAM: Yes catheter in place and Yes no CVA tenderness Back/Pelvis: COMMON NORMALS: no CVA tenderness Extremity: COMMON NORMALS: normal to inspection, full ROM, capillary refill normal, no calf tenderness and no pedal edema Neuro: COMMON NORMALS: patient oriented x3 SENSORIUM/ORIENTATION: Yes alert MENINGEAL SIGNS: Yes no meningeal signs Course Reevaluation(s): Reevaluation #1: Discussed his lab findings with him. He has mild leukocytosis and possible urinary tract infection. He has baseline CKD and his creatinine is at baseline. Explained that after the antibiotic he is getting he will be discharged home. The patient states that he wants to be admitted to the hospital and I explained to him that one his infection is not that severe enough to warrant hospital admission and to he stands risk of being exposed to hospital-acquired infections if he is admitted to the hospital at this point. I explained that the risks of hospital admission for him in his current state outweighs the benefits of hospital stay. He will get a prescription for oral antibiotics. The patient wanted to be admitted to the hospital and was not listening to what I will sign he did not agree with my explanation but I did explain to him that he does not meet admission criteria and so he will be discharged home. Time: 21:09 Vital Signs: Vital signs: Vital Signs Temperature 97.6 F 02/21/20 18:24 Pulse Rate 89 02/21/20 19:01 Respiratory Rate 20 H 02/21/20 20:48 Blood Pressure 122/82 02/21/20 19:01 Pulse Oximetry 100 02/21/20 19:01 MDM - Male MDM Narrative: Medical decision making narrative: 79-year-old gentleman with a chronic Drake catheter presents with dysuria and penile pain. On examination no discharge was noted, his uncircumcised penis and scrotum otherwise normal. Evaluation shows possible UTI and he is given a dose of IV ceftriaxone and given a prescription for oral bactrim. His Cr clearance is 39 so no dose adjustment needed. He wanted to be admitted to the hospital but he is advised that he does not meet admission criteria and he is safer being discharged home to avoid any nosocomial infections. Patient was not happy about it but agreed to be discharged home. He felt it was an insurance thing and i explained repeatedly that that was not the case. Medical Records: Attestation: I reviewed the patient's medical records. Lab Data: Attestation: I reviewed the patient's lab results. Labs: Lab Results 02/21/20 02/21/20 02/21/20 Range/Units 18:56 18:56 18:56 WBC 11.4 H (4.0-10.0) 10^3/ uL RBC 3.97 L (4.1-5.3) 10^6/u L Hgb 10.4 L (11.7-16.6) g/dL Hct 35.0 L (42.0-52.0) % MCV 88.2 (80-94) fL MCH 26.2 L (28.0-34.0) pg MCHC 29.7 L (30.0-36.0) g/dL RDW 15.2 H (12.1-15.1) % Plt Count 218 (130-400) 10^3/c mm MPV 10.8 H (7.4-10.4) fL Neut % (Auto) 72.3 % Lymph % (Auto) 14.4 % Burnett % (Auto) 6.5 % Eos % (Auto) 6.0 % Baso % (Auto) 0.5 % Neut # (Auto) 8.20 H (1.8-7.7) 10^3/u L Lymph # (Auto) 1.6 (0.8-4.8) 10^3/u L Burnett # (Auto) 0.7 (0.2-0.9) 10^3/u L Eos # (Auto) 0.7 (0.0-0.8) 10^3/u L Baso # (Auto) 0.1 (0.0-0.1) 10^3/u L Nucleated RBC % (a uto) 0 % Nucleated RBCs # 0.0 /100WBC Sodium 133 L (136-145) mmol/L Potassium 4.1 (3.5-5.1) mmol/L Chloride 96 L (98-107) mmol/L Carbon Dioxide 28 (22-29) mmol/L Anion Gap 13.1 (5-19) BUN 32 H (8-23) mg/dL Creatinine 1.9 H (0.7-1.2) mg/dL GFR Calculation Not Reportable Glucose 167 H (65-115) mg/dL Calculated Osmolal ity 277 L (285-295) mOsm/k g Lactate 1.2 (0.5-2.2) mmol/L Calcium 8.5 (8.5-10.5) mg/dL Total Bilirubin 0.2 (0.15-1.2) mg/dL AST 13 (0-40) U/L ALT 9 (0-41) U/L Alkaline Phosphata se 90 (40-130) IU/L C-Reactive Protein 17.6 H (0.0-4.9) mg/L Total Protein 6.4 L (6.6-8.7) g/dL Albumin 3.4 L (3.5-5.2) g/dL Globulin 3.0 (1.3-4.6) g/dL Urine Color (Yellow) Urine Appearance (CLEAR) Urine pH (5-7) Ur Specific Gravit y (1.005-1.030) Urine Protein (Negative) Urine Glucose (UA) (Normal) Urine Ketones (Negative) Urine Blood (Negative) Urine Nitrate (Negative) Urine Bilirubin (NEGATIVE) Urine Urobilinogen (Negative) mg/dL Ur Leukocyte Ladi ase (Negative) Urine RBC (0-2) /hpf Urine WBC (0-5) /hpf Ur Squamous Epith Cells (0-5) Amorphous Sediment Urine Bacteria (NONE) 02/21/20 Range/Units 19:00 WBC (4.0-10.0) 10^3/ uL RBC (4.1-5.3) 10^6/u L Hgb (11.7-16.6) g/dL Hct (42.0-52.0) % MCV (80-94) fL MCH (28.0-34.0) pg MCHC (30.0-36.0) g/dL RDW (12.1-15.1) % Plt Count (130-400) 10^3/c mm MPV (7.4-10.4) fL Neut % (Auto) % Lymph % (Auto) % Burnett % (Auto) % Eos % (Auto) % Baso % (Auto) % Neut # (Auto) (1.8-7.7) 10^3/u L Lymph # (Auto) (0.8-4.8) 10^3/u L Burnett # (Auto) (0.2-0.9) 10^3/u L Eos # (Auto) (0.0-0.8) 10^3/u L Baso # (Auto) (0.0-0.1) 10^3/u L Nucleated RBC % (a uto) % Nucleated RBCs # /100WBC Sodium (136-145) mmol/L Potassium (3.5-5.1) mmol/L Chloride (98-107) mmol/L Carbon Dioxide (22-29) mmol/L Anion Gap (5-19) BUN (8-23) mg/dL Creatinine (0.7-1.2) mg/dL GFR Calculation Glucose (65-115) mg/dL Calculated Osmolal ity (285-295) mOsm/k g Lactate (0.5-2.2) mmol/L Calcium (8.5-10.5) mg/dL Total Bilirubin (0.15-1.2) mg/dL AST (0-40) U/L ALT (0-41) U/L Alkaline Phosphata se (40-130) IU/L C-Reactive Protein (0.0-4.9) mg/L Total Protein (6.6-8.7) g/dL Albumin (3.5-5.2) g/dL Globulin (1.3-4.6) g/dL Urine Color Yellow (Yellow) Urine Appearance Hazy A (CLEAR) Urine pH 5 (5-7) Ur Specific Gravit y 1.015 (1.005-1.030) Urine Protein Neg (Negative) Urine Glucose (UA) Norm (Normal) Urine Ketones Negative (Negative) Urine Blood Neg (Negative) Urine Nitrate Negative (Negative) Urine Bilirubin Neg (NEGATIVE) Urine Urobilinogen Neg (Negative) mg/dL Ur Leukocyte Ladi ase 2+ H (Negative) Urine RBC 0-4 H (0-2) /hpf Urine WBC 55-80 H (0-5) /hpf Ur Squamous Epith Cells 0-4 H (0-5) Amorphous Sediment Not Reportable Urine Bacteria 1+ H (NONE) Discharge Plan Discharge Patient Disposition: Home Clinical Impression: Urinary tract infection Qualifiers: Urinary tract infection type: catheter-associated UTI Indwelling urinary catheter type: indwelling urethral catheter Encounter type: initial encounter Qualified Code(s): T83.511A - Infection and inflammatory reaction due to indwelling urethral catheter, initial encounter Condition: Stable Prescriptions: New Bactrim DS 800-160 mg tablet 1 tab PO BID Qty: 14 RF: 0 Continued metoprolol tartrate 25 mg Tablet 12.5 mg PO BID Qty: 0 RF: 0 ipratropium-albuterol 0.5 mg-3 mg(2.5 mg base)/3 mL solution for nebulization 2.5 ml INHALATION Q4H PRN (Reason: Shortness Of Breath Or Wheezing) RF: 0 hydrocodone-acetaminophen 5-325 mg tablet 1 tab PO Q6H PRN (Reason: Pain) RF: 0 tamsulosin 0.4 mg Capsule 0.4 mg PO DAILY Qty: 30 RF: 0 alprazolam [Xanax] 0.5 mg Tablet 0.5 - 1 mg PO Q4H PRN (Reason: Anxiety) RF: 0 Aspir-81 81 mg Tablet,Delayed Release (Dr/Ec) 81 mg PO DAILY RF: 0 sertraline 25 mg tablet 25 mg PO DAILY RF: 0 Lasix 20 mg tablet 40 mg PO DAILY RF: 0 oxybutynin chloride 5 mg tablet 5 mg PO TID PRN (Reason: Bladder Spasms) RF: 0 Discharge Orders: Discharge Order (Routine); Ordered 02/21/20 Ordered By: Neal Pratt Referrals: Erik Adkins DO [Primary Care Provider] - 1-3 days Discharge Diet: Usual diet Discharge Activity: Increase activity as tolerated Patient Instructions: Urinary Tract Infection in Men (ED), Drake Catheter Placement and Care (ED) Activity Restrictions/Additional Instructions: Return for any new or worsening symptoms. Take the antibiotics as prescribed. Drink plenty of fluid to keep well hydrated. Follow up with your primary care provider within 3 days. Coding Level of Care Code ED Senior Sourcing Manager for Andriy Dhillon
--- NOTE | 2020-02-21 22:52 | PC.NURSE ---
pt states during d/c that he does nto have transportation home. pt informed due to time of day, [facility] will not be able to transport pt until am, or call for a ride, [employer].
[2020-02-21 22:53] VITALS: BP 126/74; PULSE 104; RESP 22; O2SAT 92
--- NOTE | 2020-02-24 09:20 | PC.NURSE ---
[facility] URINE CULTURE WITH ESBL ECOLI
== END 2020-02-21 23:55 | disposition home or self-care (01) ==
PROVIDERS: Emergency Provider Family Medicine; PCP Family Medicine
DX: T83.511A Infection and inflammatory reaction due to indwelling urethral catheter, initial encounter (principal); Z79.82 Long term (current) use of aspirin; I13.0 Hypertensive heart and chronic kidney disease with heart failure and stage 1 through stage 4 chronic kidney disease, or unspecified chronic kidney disease; E11.22 Type 2 diabetes mellitus with diabetic chronic kidney disease; N18.3 Chronic kidney disease, stage 3 (moderate); I50.9 Heart failure, unspecified
CPT/HCPCS: 12345; 80053; 81001; 83605; 85025; 86140; 87077; 87086; 87186; 96365; 96375; 99282; 99283; J0696; J2270

== ENCOUNTER 2020-02-22 14:37 | Inpatient (IN) | payer MEDICARE, MEDICAID, SELFPAY ==
[2020-02-22] VITALS (14 sets, daily range): BP systolic 105–152; BP diastolic 66–97; PULSE 86–118; RESP 18–24; TEMP 36.6; O2SAT 92–100; BMI 30.4
--- NOTE | 2020-02-22 14:57 | XR_ITS ---
WS: [id number] Portable AP upright chest, 02/22/2020 Clinical Data: sob Comparison: Portable chest, 01/25/2020. Findings: No nodules, masses or effusions are seen. The heart is normal. The pulmonary vascularity is not increased. No pneumonia or pneumothorax is seen. The right diaphragm is elevated and unchanged. The aortic arch and descending aorta show calcification and tortuosity. XR/XR chest 1V portable [id number] Impression: 1. Atherosclerosis. 2. Elevation of the right diaphragm.
[2020-02-22 15:26] LABS: Basophils # 0.1 10^3/uL (0.0-0.1); Basophils % 0.5 %; Eosinophils # 0.5 10^3/uL (0.0-0.8); Eosinophils % 3.7 %; Hematocrit 37.6 % (42.0-52.0); Hemoglobin 11.4 g/dL (11.7-16.6); Lymphocytes % 8.2 %; Mean Corpuscular HGB Conc 30.3 g/dL (30.0-36.0); Mean Corpuscular Volume 85.8 fL (80-94); Mean Platelet Volume 10.4 fL (7.4-10.4); Monocytes # 0.8 10^3/uL (0.2-0.9); Monocytes % 6.5 %; Neutrophils # 10.27 10^3/uL (1.8-7.7); Neutrophils % 80.7 %; Nucleated Red Blood Cells % 0 %; Platelet Count 204 10^3/cmm (130-400); Red Blood Count 4.38 10^6/uL (4.1-5.3); Red Cell Distribution Width 15.2 % (12.1-15.1); White Blood Count 12.7 10^3/uL (4.0-10.0)
[2020-02-22] MEDS: ipratropium-albuterol 3 mL Neb INHALATION (15:30)
[2020-02-22 15:42] LABS: Lactate (Lactic Acid level) 1.2 mmol/L (0.5-2.2)
[2020-02-22 15:43] LABS: Alanine Aminotransferase 8 U/L (0-41); Albumin Level 3.9 g/dL (3.5-5.2); Alkaline Phosphatase 115 IU/L (40-130); Anion Gap 13.8 (5-19); Aspartate Amino Transferase 15 U/L (0-40); Blood Urea Nitrogen 29 mg/dL (8-23); Carbon Dioxide 30 mmol/L (22-29); Chloride 97 mmol/L (98-107); Creatinine Clr Calc Pharmacy 40.2746; Globulin 2.9 g/dL (1.3-4.6); Glucose 150 mg/dL (65-115); Lipase 7 U/L (13-60); Osmolality Calculated 282 mOsm/kg (285-295); Potassium 4.8 mmol/L (3.5-5.1); Sodium 136 mmol/L (136-145); Total Bilirubin 0.2 mg/dL (0.15-1.2); Total Protein 6.8 g/dL (6.6-8.7)
[2020-02-22 16:20] LABS: Rapid Strep A Test Negative (Negative)
[2020-02-22 16:31] LABS: Procalcitonin 0.17 ng/mL (0-0.5)
--- NOTE | 2020-02-22 16:40 | CTR_ITS ---
PROCEDURE INFORMATION: Exam: CT Abdomen And Pelvis With Contrast Exam date and time: 02/22/2020 4:59 PM Age: 79 years old Clinical indication: Abdominal pain; Other: Bilat; Patient HX: C/O chronic b flank pain TECHNIQUE: Imaging protocol: Computed tomography of the abdomen and pelvis with intravenous contrast. Radiation optimization: All CT scans at this facility use at least one of these dose optimization techniques: automated exposure control; mA and/or kV adjustment per patient size (includes targeted exams where dose is matched to clinical indication); or iterative reconstruction. Contrast material: VISI 320; Contrast volume: 95 ml; Contrast route: INTRAVENOUS (IV); COMPARISON: CT abdomen pelvis wo con [id number] 11/05/2019 4:51 PM RADIATION DOSE METRICS: Total DLP (mGy-cm): 949.24 FINDINGS: Tubes, catheters and devices: A balloon bladder catheter is present. Lungs: Nonspecific bibasilar ground-glass and interstitial prominence is present, consistent with atelectasis, fibrosis, edema, and or pneumonitis. Mediastinal space: A small hiatal hernia is present. Diaphragm: There is unchanged nonspecific elevation the right hemidiaphragm. Liver: Unremarkable.No mass. Gallbladder and bile ducts: Normal. No calcified stones. No ductal dilation. Pancreas: Normal. No ductal dilation. Spleen: Normal. No splenomegaly. Adrenals: Normal. No mass. Kidneys and ureters: There is no evidence of renal calcifications. There is no evidence of hydronephrosis. There is an unchanged right extrarenal pelvis. No hyperdensity or hemorrhage is identified in either renal pelvis or ureter. No calculi in the ureters. Stomach and bowel: Mild diverticulosis is present in the distal colon. There is no evidence of intestinal perforation or obstruction. Appendix: A normal appendix is identified. Intraperitoneal space: Unremarkable. No free air. No significant fluid collection. Vasculature: The aorta demonstrates moderate atherosclerotic calcification. Lymph nodes: Unremarkable.No enlarged lymph nodes. Bladder: There is nonspecific bladder wall thickening. There is induration of the fat adjacent to the bladder. This may be related to incomplete distention and or cystitis. There is hyperdensity within the lumen of the bladder suspected be hemorrhage. The bladder also has a trabeculated appearance. Reproductive: The prostate demonstrates mild nonspecific enlargement. The seminal vesicles are normal. Bones/joints: Osteopenia and moderate degenerative changes are noted in the spine and pelvis. Soft tissues: There is a fat-containing umbilical hernia. CT/CT abdomen pelvis w con* [id number] IMPRESSION: 1. Nonspecific bibasilar ground-glass and interstitial prominence is present, consistent with atelectasis, fibrosis, edema, and or pneumonitis. 2. There is nonspecific bladder wall thickening. There is induration of the fat adjacent to the bladder. This may be related to incomplete distention and or cystitis. 3. There is hyperdensity within the lumen of the bladder suspected be hemorrhage. The kidneys are unremarkable without hydronephrosis or obstructing calculus. No hemorrhage within either renal pelvis or ureter. Radiation Dose CTDIVOL = (mGy): DLP = 949.24 (mGy-cm)
[2020-02-22 16:42] LABS: C Reactive Protein 20.9 mg/L (0.0-4.9)
[2020-02-22] MEDS: iodixanol 320 mg/mL 100mL Btl IV (17:17)
--- NOTE | 2020-02-22 18:37 | PM.HP ---
Providers/Chief Complaint Primary Care Provider: Erik Adkins DO Chief Complaint: KIDNEY PAIN History of Present Illness Vladimir Farnsworth is a 79 year old male with a past medical history of aol-orvjnga-clfsghgoz type 2 diabetes mellitus, COPD 2 L oxygen dependent, anxiety depression on Xanax, chronic back pain on [place], history of chronic indwelling Drake catheter for BPH, history of recurrent ESBL UTIs, recent history of ESBL UTI with bacteremia finished a meropenem course, recently discharged from intermediate, currently at home with his daughter, and home health care. Patient presents the second time to [facility] due to complaints of urinary tract infection-like symptoms. Patient states that he is having lower pelvic pain, abdominal pain, fatigue, malaise, chills, just not feeling well. No fevers, no cough, no shortness of breath, lightheaded, dizziness, no exposure to COVID-19. Patient presented here to [facility] yesterday, diagnosed with UTI, his Drake catheter was changed, he was given Rocephin, oral antibiotics and discharged home. However patient returns today again because of lower pelvic pain, pain radiating to bilateral flanks, fatigue, malaise, chills, malaise. Patient tells me that his Drake catheter he has had a Drake catheter for roughly a year, due to BPH, has not followed up with urology in over a year. Patient denies hematuria, denies foul odor to his urine, denies a change in urinary frequency, denies a change in his urine color. Review of Systems Const: Reports: chills and malaise; Denies: fever(s) or fatigue Eyes: Denies: change in vision or blurry vision ENMT: Denies: nasal congestion Resp: Denies: dyspnea, productive cough, non-productive cough or wheezing GI: Denies: abdominal pain, nausea, vomiting, hematemesis, diarrhea, constipation, hematochezia or melena : Reports: flank pain, dysuria and genital pain; Denies: difficulty urinating or urinary frequency Musc: Denies: neck pain or back pain Skin/Breast: Denies: rash Neuro: Denies: headache(s), dizziness or vertigo Psych: Denies: anxiety or depression Endo: Denies: polydipsia Medications/Allergies Home Medications Medication Instructions Recorded Confirmed Last Taken Type hydrocodone-acetaminophen 1 tab PO Q6H PRN 11/03/19 02/22/20 02/22/20 History ipratropium-albuterol 2.5 ml INHALATION Q4H PRN 11/03/19 02/22/20 Unknown History metoprolol tartrate 12.5 mg PO BID #0 11/03/19 02/22/20 02/22/20 History tamsulosin 0.4 mg PO DAILY #30 cap 11/08/19 02/22/20 02/22/20 Rx alprazolam [Xanax] 0.5 - 1 mg PO Q4H PRN 01/25/20 02/22/20 02/22/20 History aspirin [Aspir-81] 81 mg PO DAILY 02/21/20 02/22/20 02/21/20 History furosemide [Lasix] 40 mg PO DAILY 02/21/20 02/22/20 02/22/20 History oxybutynin chloride 5 mg PO TID PRN 02/21/20 02/22/20 02/22/20 History sertraline 25 mg PO DAILY 02/21/20 02/22/20 02/22/20 History Allergies Allergy/AdvReac Type Severity Reaction Status Date / Time No Known Allergies Allergy Verified 02/22/20 16:42 PFSH Acute PFSH: Medical History (Updated 02/22/20 @ 18:44 by Abimael Gil MD) Aortic stenosis, mild BPH with urinary obstruction CHF (congestive heart failure) Chronic kidney disease, stage 3 COPD (chronic obstructive pulmonary disease) COPD (chronic obstructive pulmonary disease) Diabetes mellitus, type II History of ESBL E. coli infection urine Hypertension Osteoarthritis chronic back and joint pains Surgical History No pertinent past surgical history denies any surgeries Family History Family/Other No problems noted. Social History Smoking and tobacco status: never smoked Alcohol intake: never Marital status: / Current occupational status: retired and disabled Vitals/I&O/Wt Last Vital Signs Temp 97.8 F 02/22/20 14:38 Pulse 97 02/22/20 17:54 Resp 18 02/22/20 17:54 BP 137/81 02/22/20 17:54 Pulse Ox 96 02/22/20 17:54 Weight last 48 hrs Weight 90.718 kg Physical Exam Const: COMMON NORMALS: no acute distress and patient oriented x3 GENERAL APPEARANCE: cooperative and comfortable HENMT: COMMON NORMALS: normocephalic HEAD & SCALP: normocephalic Eye: COMMON NORMALS: Equal, round and reactive pupils present GENERAL EYE: appearance normal, both eyes and all related structures PUPIL: Yes Equal, round and reactive pupils present Neck/C-Spine: COMMON NORMALS: full ROM, no lymphadenopathy, no JVD and Thyroid normal THYROID: Thyroid normal Lymph: LYMPHATIC: no lymphadenopathy noted Resp: COMMON NORMALS: normal respiratory effort, No retractions, No use of accessory muscles and clear to auscultation bilaterally AUSCULTATION: clear to auscultation bilaterally Cardio: COMMON NORMALS: no JVD, regular rate, regular rhythm, S1 normal heart sound present, S2 normal heart sound present, No gallops present (Cardio), No clicks present (Cardio) and No murmurs present (Cardio) RATE: regular rate RHYTHM: regular rhythm HEART SOUNDS: S1 normal heart sound present and S2 normal heart sound present GI: COMMON NORMALS: Normal to inspection, nondistended, normoactive bowel sounds present, Soft to palpation, non-tender and No hepatosplenomegaly present PALPATION: Yes Soft to palpation and Yes No hepatosplenomegaly present : OTHER: Bilateral CVA tenderness Extremity: COMMON NORMALS: normal to inspection, full ROM and no pedal edema Neuro: COMMON NORMALS: patient oriented x3, CN's II-XII intact bilaterally, moves all extremities and no focal motor deficits Psych: COMMON NORMALS: mental status grossly normal, Normal thought process present and cooperative THOUGHT PROCESS: Normal thought process present Data : 02/22/20 13:19 02/22/20 13:19 Micro: Microbiology 02/22/20 13:19 Blood Culture - Preliminary Blood SPECIMEN COLLECTED A&P Assessment and plan (1) Acute pyelonephritis: -Has a history of recurrent ESBL E. coli UTIs, recent history of ESBL UTI with bacteremia, finished meropenem course -Risk factors include chronic antibiotic use, chronic Drake, for BPH -Has bilateral flank pain, white blood cell count 12.7, CT scan no evident evidence obstructive uropathy -no evidence of sepsis, no hypotension, no tachycardia, no fevers, no significant leukocytosis, inflammatory marker elevation -Creatinine is about at baseline at 1.5, improved from yesterday which was 1.9 -Clinically this seems a lot like pyelonephritis -There are some concerns for bacteremia, given his fatigue, malaise, chills, and history of ESBL bacteremia in the past -Given history of ESBL will admit Plan: -Admit to general medical floors -Drake catheter has been changed by the ER yesterday, on 4 to the tip was not sent for culture -Follow urine cultures, blood cultures -Continue ertapenem -Continue home [place] -Monitor for clinical progress, monitor urine -Patient is a full code -Lovenox for DVT prophylaxis Status: Acute (2) COPD (chronic obstructive pulmonary disease): Status: Chronic (3) Osteoarthritis: Status: Chronic Qualifiers: Osteoarthritis location: multiple joints Osteoarthritis type: unspecified Qualified Code(s): M15.9 - Polyosteoarthritis, unspecified (4) Hypertension: Status: Chronic Qualifiers: Hypertension type: essential hypertension Qualified Code(s): I10 - Essential (primary) hypertension (5) History of ESBL E. coli infection: Status: Chronic (6) Aortic stenosis, mild: Status: Chronic (7) Diabetes mellitus, type II: Low-dose sliding scale Status: Chronic Qualifiers: Diabetes mellitus usp insulin use: without buttermaker continuous churn use Diabetes mellitus complication status: with kidney complications Diabetes mellitus complication detail: with chronic kidney disease Chronic kidney disease stage: stage 3 (moderate) Qualified Code(s): E11.22 - Type 2 diabetes mellitus with diabetic chronic kidney disease; N18.3 - Chronic kidney disease, stage 3 (moderate) (8) BPH with urinary obstruction: Status: Chronic (9) Chronic indwelling Drake catheter: Status: Chronic (10) Chronic kidney disease, stage 3: Status: Chronic Attestations Medical Necessity Statement*: Patient requires hospitalization, outpatient with observation, for acute pyelonephritis, concerns for ESBL UTI, and bacteremia Coding Level of Care Code Acute Claims Customer Service Representative for [facility] Diagnoses Acute pyelonephritis N10 COPD (chronic obstructive pulmonary disease) J44.9 Osteoarthritis M15.9 Osteoarthritis location: multiple joints Osteoarthritis type: unspecified Hypertension I10 Hypertension type: essential hypertension History of ESBL E. coli infection Z86.19 Aortic stenosis, mild I35.0 Diabetes mellitus, type II E11.22; N18.3 Diabetes mellitus usp insulin use: without buttermaker continuous churn use Diabetes mellitus complication status: with kidney complications Diabetes mellitus complication detail: with chronic kidney disease Chronic kidney disease stage: stage 3 (moderate) BPH with urinary obstruction N40.1; N13.8 Chronic indwelling Drake catheter Z96.0 Chronic kidney disease, stage 3 N18.3
--- NOTE | 2020-02-22 19:10 | W.ED.MALEGU ---
HPI - Male Genitourinary General: Chief complaint: Urogenital-Male Stated complaint: KIDNEY PAIN Time Seen by Provider: 02/22/20 14:49 Source: patient Mode of arrival: EMS History of Present Illness: HPI Narrative: This gentleman is an 79-year-old patient who presents to the emergency department with complaints of kidney pain. He was seen here yesterday for the same thing and was diagnosed with a UTI that was uncomplicated. He was discharged home and he is back today again seen his kidneys hurts. He denies any fever, no nausea or vomiting. All he says that he hurts. He has a chronic indwelling Drake catheter and has a history of ESBL UTI. Because of the ESBL on this out for culture he was given Bactrim on discharge home yesterday. Complaint: dysuria Associated symptoms: Reports dysuria; Deny nausea or vomiting Review of Systems General: Reports: 10 or more systems reviewed and unremarkable except in HPI and below Const: Denies: fever(s), chills or body aches Eyes: Denies: change in vision or blurry vision ENMT: Denies: throat pain, enlarged tonsils, odynophagia, hoarseness, mouth pain or swelling of lips/tongue Card: Denies: palpitations, irregular heart rhythm, edema or swelling of feet/ankles Resp: Denies: dyspnea, productive cough or non-productive cough GI: Reports: abdominal pain; Denies: nausea or vomiting : Reports: flank pain and dysuria; Denies: urinary frequency, urinary urgency or urinary hesitancy Musc: Denies: neck pain, back pain or extremity swelling Skin/Breast: Denies: rash, pruritus or erythema Neuro: Denies: headache(s), numbness in extremities or weakness in extremities Endo: Denies: polyuria, polydipsia or tired all the time PFSH ED PFSH: Medical History Aortic stenosis, mild BPH with urinary obstruction CHF (congestive heart failure) Chronic kidney disease, stage 3 COPD (chronic obstructive pulmonary disease) COPD (chronic obstructive pulmonary disease) Diabetes mellitus, type II History of ESBL E. coli infection urine Hypertension Osteoarthritis chronic back and joint pains Surgical History No pertinent past surgical history denies any surgeries Family History Family/Other No problems noted. Social History Smoking and tobacco status: never smoked Alcohol intake: never Marital status: / Current occupational status: retired and disabled Physical Exam Const: COMMON NORMALS: no acute distress, average body habitus, patient oriented x3, no limitations, healthy appearing, alert and well nourished HENMT: COMMON NORMALS: normocephalic, atraumatic and moist oral mucous membranes HEAD & SCALP: normocephalic and atraumatic Neck/C-Spine: COMMON NORMALS: no meningeal signs and no JVD Resp: COMMON NORMALS: normal respiratory effort, No retractions, No use of accessory muscles and percussion normal AUSCULTATION: wheezes PERCUSSION: percussion normal Cardio: COMMON NORMALS: no JVD, regular rate, regular rhythm, S1 normal heart sound present, S2 normal heart sound present, No gallops present (Cardio), No clicks present (Cardio), No murmurs present (Cardio), No rub (Cardio) and Peripheral pulses 2+ throughout RATE: regular rate RHYTHM: regular rhythm HEART SOUNDS: S1 normal heart sound present and S2 normal heart sound present PERIPHERAL PULSES: Peripheral pulses 2+ throughout GI: COMMON NORMALS: Normal to inspection, nondistended, normoactive bowel sounds present, Soft to palpation, non-tender, No hepatosplenomegaly present, no masses and no bruits PALPATION: Yes Soft to palpation and Yes No hepatosplenomegaly present : COMMON NORMALS: Yes no CVA tenderness BLADDER/KIDNEY EXAM: Yes no CVA tenderness Back/Pelvis: COMMON NORMALS: no CVA tenderness Extremity: COMMON NORMALS: normal to inspection, full ROM, capillary refill normal, no calf tenderness and no pedal edema Neuro: COMMON NORMALS: patient oriented x3 SENSORIUM/ORIENTATION: Yes alert MENINGEAL SIGNS: Yes no meningeal signs Course ED course: 79-year-old male with chronic indwelling catheter and a history of ESBL UTI presents with flank pain and dysuria. He is admitted to the hospital for further evaluation and management. Consultations: Consultation #1: Dr. Diaz, hospitalist. He kindly accepted the patient to his service. Vital Signs: Vital signs: Vital Signs Temperature 97.8 F 02/22/20 14:38 Pulse Rate 110 H 02/22/20 18:55 Respiratory Rate 20 H 02/22/20 18:55 Blood Pressure 139/97 02/22/20 18:55 Pulse Oximetry 97 02/22/20 18:55 MDM - Male MDM Narrative: Medical decision making narrative: 79-year-old gentleman with 2 ED visits in less than 24 hours for the same thing. His complaint is flank pain and dysuria. Evaluation shows he has a possible UTI with some mild leukocytosis. A CT scan done today showed he may have some hemorrhagic cystitis he is therefore admitted overnight for further evaluation and management Medical Records: Attestation: I reviewed the patient's medical records. Lab Data: Attestation: I reviewed the patient's lab results. Labs: Lab Results 02/22/20 02/22/20 02/22/20 Range/Units 13:19 13:19 13:19 WBC 12.7 H (4.0-10.0) 10^3/ uL RBC 4.38 (4.1-5.3) 10^6/u L Hgb 11.4 L (11.7-16.6) g/dL Hct 37.6 L (42.0-52.0) % MCV 85.8 (80-94) fL MCH 26.0 L (28.0-34.0) pg MCHC 30.3 (30.0-36.0) g/dL RDW 15.2 H (12.1-15.1) % Plt Count 204 (130-400) 10^3/c mm MPV 10.4 (7.4-10.4) fL Neut % (Auto) 80.7 % Lymph % (Auto) 8.2 % [place] % (Auto) 6.5 % Eos % (Auto) 3.7 % Baso % (Auto) 0.5 % Neut # (Auto) 10.27 H (1.8-7.7) 10^3/u L Lymph # (Auto) 1.0 (0.8-4.8) 10^3/u L [place] # (Auto) 0.8 (0.2-0.9) 10^3/u L Eos # (Auto) 0.5 (0.0-0.8) 10^3/u L Baso # (Auto) 0.1 (0.0-0.1) 10^3/u L Nucleated RBC % (a uto) 0 % Nucleated RBCs # 0.0 /100WBC Sodium 136 (136-145) mmol/L Potassium 4.8 (3.5-5.1) mmol/L Chloride 97 L (98-107) mmol/L Carbon Dioxide 30 H (22-29) mmol/L Anion Gap 13.8 (5-19) BUN 29 H (8-23) mg/dL Creatinine 1.6 H (0.7-1.2) mg/dL GFR Calculation Not Reportable Glucose 150 H (65-115) mg/dL Calculated Osmolal ity 282 L (285-295) mOsm/k g Lactate 1.2 (0.5-2.2) mmol/L Calcium 10.0 (8.5-10.5) mg/dL Total Bilirubin 0.2 (0.15-1.2) mg/dL AST 15 (0-40) U/L ALT 8 (0-41) U/L Alkaline Phosphata se 115 (40-130) IU/L C-Reactive Protein 20.9 H (0.0-4.9) mg/L Total Protein 6.8 (6.6-8.7) g/dL Albumin 3.9 (3.5-5.2) g/dL Globulin 2.9 (1.3-4.6) g/dL Lipase 7 L (13-60) U/L Procalcitonin 0.17 (0-0.5) ng/mL Group A Strep Rapi d (Negative) 02/22/20 Range/Units 15:26 WBC (4.0-10.0) 10^3/ uL RBC (4.1-5.3) 10^6/u L Hgb (11.7-16.6) g/dL Hct (42.0-52.0) % MCV (80-94) fL MCH (28.0-34.0) pg MCHC (30.0-36.0) g/dL RDW (12.1-15.1) % Plt Count (130-400) 10^3/c mm MPV (7.4-10.4) fL Neut % (Auto) % Lymph % (Auto) % [place] % (Auto) % Eos % (Auto) % Baso % (Auto) % Neut # (Auto) (1.8-7.7) 10^3/u L Lymph # (Auto) (0.8-4.8) 10^3/u L [place] # (Auto) (0.2-0.9) 10^3/u L Eos # (Auto) (0.0-0.8) 10^3/u L Baso # (Auto) (0.0-0.1) 10^3/u L Nucleated RBC % (a uto) % Nucleated RBCs # /100WBC Sodium (136-145) mmol/L Potassium (3.5-5.1) mmol/L Chloride (98-107) mmol/L Carbon Dioxide (22-29) mmol/L Anion Gap (5-19) BUN (8-23) mg/dL Creatinine (0.7-1.2) mg/dL GFR Calculation Glucose (65-115) mg/dL Calculated Osmolal ity (285-295) mOsm/k g Lactate (0.5-2.2) mmol/L Calcium (8.5-10.5) mg/dL Total Bilirubin (0.15-1.2) mg/dL AST (0-40) U/L ALT (0-41) U/L Alkaline Phosphata se (40-130) IU/L C-Reactive Protein (0.0-4.9) mg/L Total Protein (6.6-8.7) g/dL Albumin (3.5-5.2) g/dL Globulin (1.3-4.6) g/dL Lipase (13-60) U/L Procalcitonin (0-0.5) ng/mL Group A Strep Rapi d Negative (Negative) Imaging Data: CXR: Radiologist's impression: [address] [address] XRay Report Signed Patient: Vladimir Farnsworth [place] #: [id number] : 1940Acct#:[id number] Age/Sex: 79 / MADM Date: 02/22/20 Loc: ERRoom/Bed: Attending Dr: Ordering Provider/Ordering MD: Neal Pratt MD, [facility] [place] Date of Service: 02/22/20 Procedure(s): XR chest 1V portable [id number] Accession Number(s): [id number] Report Number: [id number] WS: [id number] Portable AP upright chest, 02/22/2020 Clinical Data: sob Comparison: Portable chest, 01/25/2020. Findings: No nodules, masses or effusions are seen. The heart is normal. The pulmonary vascularity is not increased. No pneumonia or pneumothorax is seen. The right diaphragm is elevated and unchanged. The aortic arch and descending aorta show calcification and tortuosity. XR/XR chest 1V portable [id number] Impression: 1. Atherosclerosis. 2. Elevation of the right diaphragm. CT Abd/Pel: Radiologist's impression: [place] [address] CT Scan Report Signed Patient: Vladimir Farnsworth #: [id number] : 9Acct#:[id number] Age/Sex: 79 / MADM Date: 02/22/20 Loc: ERRoom/Bed: Attending Dr: Ordering Provider/Ordering MD: Neal Pratt MD, [facility] [place] Date of Service: 02/22/20 Procedure(s): CT abdomen pelvis w con* [id number] Accession Number(s): [id number] Report Number: [id number] PROCEDURE INFORMATION: Exam: CT Abdomen And Pelvis With Contrast Exam date and time: 02/22/2020 4:59 PM Age: 79 years old Clinical indication: Abdominal pain; Other: Bilat; Patient HX: C/O chronic b flank pain TECHNIQUE: Imaging protocol: Computed tomography of the abdomen and pelvis with intravenous contrast. Radiation optimization: All CT scans at this facility use at least one of these dose optimization techniques: automated exposure control; mA and/or kV adjustment per patient size (includes targeted exams where dose is matched to clinical indication); or iterative reconstruction. Contrast material: VISI 320; Contrast volume: 95 ml; Contrast route: INTRAVENOUS (IV); COMPARISON: CT abdomen pelvis wo con [id number] 11/05/2019 4:51 PM RADIATION DOSE METRICS: Total DLP (mGy-cm): 949.24 FINDINGS: Tubes, catheters and devices: A balloon bladder catheter is present. Lungs: Nonspecific bibasilar ground-glass and interstitial prominence is present, consistent with atelectasis, fibrosis, edema, and or pneumonitis. Mediastinal space: A small hiatal hernia is present. Diaphragm: There is unchanged nonspecific elevation the right hemidiaphragm. Liver: Unremarkable.No mass. Gallbladder and bile ducts: Normal. No calcified stones. No ductal dilation. Pancreas: Normal. No ductal dilation. Spleen: Normal. No splenomegaly. Adrenals: Normal. No mass. Kidneys and ureters: There is no evidence of renal calcifications. There is no evidence of hydronephrosis. There is an unchanged right extrarenal pelvis. No hyperdensity or hemorrhage is identified in either renal pelvis or ureter. No calculi in the ureters. Stomach and bowel: Mild diverticulosis is present in the distal colon. There is no evidence of intestinal perforation or obstruction. Appendix: A normal appendix is identified. Intraperitoneal space: Unremarkable. No free air. No significant fluid collection. Vasculature: The aorta demonstrates moderate atherosclerotic calcification. Lymph nodes: Unremarkable.No enlarged lymph nodes. Bladder: There is nonspecific bladder wall thickening. There is induration of the fat adjacent to the bladder. This may be related to incomplete distention and or cystitis. There is hyperdensity within the lumen of the bladder suspected be hemorrhage. The bladder also has a trabeculated appearance. Reproductive: The prostate demonstrates mild nonspecific enlargement. The seminal vesicles are normal. Bones/joints: Osteopenia and moderate degenerative changes are noted in the spine and pelvis. Soft tissues: There is a fat-containing umbilical hernia. CT/CT abdomen pelvis w con* [id number] IMPRESSION: 1. Nonspecific bibasilar ground-glass and interstitial prominence is present, consistent with atelectasis, fibrosis, edema, and or pneumonitis. 2. There is nonspecific bladder wall thickening. There is induration of the fat adjacent to the bladder. This may be related to incomplete distention and or cystitis. 3. There is hyperdensity within the lumen of the bladder suspected be hemorrhage. The kidneys are unremarkable without hydronephrosis or obstructing calculus. No hemorrhage within either renal pelvis or ureter. Radiation Dose CTDIVOL = (mGy): DLP = 949.24 (mGy-cm) Dictated By:Vero Roman Signed By:Pasquale Roman Date/Time:02/22/201732 DD/ 30 Discharge Plan Discharge Patient Disposition: Placed in Observation Admit Provider: Abimael Gil Clinical Impression: Acute pyelonephritis Condition: Stable Coding Level of Care Code ED Carrier Packer for Andriy Dhillon
[2020-02-22] MEDS: morphine 4 mg/mL SDV 1 mL IVP (19:50)
[2020-02-22 20:47] LABS: Glucose Point of Care 129 mg/dL (70-110)
[2020-02-22] MEDS: ipratropium-albuterol 3 mL Neb 2.5 ML INHALATION (20:48)
[2020-02-22] MEDS: enoxaparin 40 mg/0.4 mL Syringe SUBCUT (21:46)
[2020-02-23] VITALS (14 sets, daily range): BP systolic 102–144; BP diastolic 58–82; PULSE 63–115; RESP 17–24; TEMP 36.4–37.1; O2SAT 91–98
[2020-02-23 04:17] LABS: Basophils % 0.3 %; Eosinophils # 0.5 10^3/uL (0.0-0.8); Eosinophils % 5.1 %; Hematocrit 34.7 % (42.0-52.0); Hemoglobin 10.5 g/dL (11.7-16.6); Lymphocytes # 1.1 10^3/uL (0.8-4.8); Lymphocytes % 11.2 %; Mean Corpuscular HGB Conc 30.3 g/dL (30.0-36.0); Mean Corpuscular Hemoglobin 25.9 pg (28.0-34.0); Mean Corpuscular Volume 85.7 fL (80-94); Mean Platelet Volume 10.8 fL (7.4-10.4); Monocytes # 0.8 10^3/uL (0.2-0.9); Monocytes % 8.5 %; Neutrophils # 7.35 10^3/uL (1.8-7.7); Neutrophils % 74.5 %; Nucleated Red Blood Cells % 0 %; Platelet Count 209 10^3/cmm (130-400); Red Blood Count 4.05 10^6/uL (4.1-5.3); Red Cell Distribution Width 15.4 % (12.1-15.1); White Blood Count 9.9 10^3/uL (4.0-10.0)
--- NOTE | 2020-02-23 04:23 | PC.NURSE ---
Addendum entered by Elayne Lewis RN 02/23/20 04:25: There was also no order found to DC borja. Original Note: RN put in order for borja placement due to Dr. Gil giving an order to take chronic borja out and send tip of catheter to be tested and not putting an order in to replace borja.
[2020-02-23 04:35] LABS: Alanine Aminotransferase 8 U/L (0-41); Albumin Level 3.4 g/dL (3.5-5.2); Alkaline Phosphatase 90 IU/L (40-130); Anion Gap 12.3 (5-19); Aspartate Amino Transferase 12 U/L (0-40); Blood Urea Nitrogen 25 mg/dL (8-23); Calcium 9.3 mg/dL (8.5-10.5); Carbon Dioxide 30 mmol/L (22-29); Chloride 101 mmol/L (98-107); Creatinine Clr Calc Pharmacy 42.9596; Globulin 2.7 g/dL (1.3-4.6); Glucose 132 mg/dL (65-115); Magnesium 1.5 mg/dL (1.7-2.3); Osmolality Calculated 287 mOsm/kg (285-295); Phosphorus 3.5 mg/dL (2.5-4.5); Potassium 4.3 mmol/L (3.5-5.1); Sodium 139 mmol/L (136-145); Total Bilirubin 0.2 mg/dL (0.15-1.2); Total Protein 6.1 g/dL (6.6-8.7)
[2020-02-23 07:16] LABS: Glucose Point of Care 120 mg/dL (70-110)
[2020-02-23] MEDS: ipratropium-albuterol 3 mL Neb 2.5 ML INHALATION ×3 (09:19→20:51)
[2020-02-23] MEDS: sertraline 50 mg Tablet 25 MG PO (10:00)
[2020-02-23] MEDS: FUROsemide 40 mg Tablet PO (10:01)
[2020-02-23] MEDS: metoprolol tartrate 25 mg Tablet 12.5 MG PO ×2 (10:01→17:56)
[2020-02-23] MEDS: aspirin 81 mg EC Tablet PO (10:01)
[2020-02-23] MEDS: HYDROcodone-acetaminophen 5-325 mg Tablet 1 TAB PO ×2 (10:02→17:56)
[2020-02-23] MEDS: enoxaparin 40 mg/0.4 mL Syringe SUBCUT (10:02)
[2020-02-23 11:03] LABS: Glucose Point of Care 169 mg/dL (70-110)
--- NOTE | 2020-02-23 11:37 | PC.NURSE ---
Permission given by patient for us to be able to give information to Cathryn Gruber ([facility]). [phone]
--- NOTE | 2020-02-23 11:48 | PC.CHAP ---
Pastoral Care Encounter/Spiritual Assessment Type of Contact [] Declined strap setter visit [] Patient/Family/Request visit [] Outpatient visit [] Follow-up visit [] Physician referral [] Code/Alert [X] Routine visit [] Staff referral [] Actively dying [] Patient sleeping [] Family support [] [] Out of room [] Palliative care [] [] Receiving care in room [] Pre-surgical visit [] Trauma [] Long length of stay [] ICU visit [] Other: Relational/Emotional Strength [] Patient feels connected with others/family/visitors/staff [] Distress [] Loneliness/isolation [] Abandonment Spirituality of Patient [] Person of Rosio [] Attends Latter Day of their Rosio [] Believes in Prayer [] Reads Bible or Scientology materials [] There are Spiritual issues to be addressed Child Care Coordinator Interventions [] Prayer [] Active listening [] Non-anxious presence [] Spiritual/emotional support [] Crisis/trauma care [] Spiritual counseling [] Bereavement support [] Provided bereavement packet [] Provided Bible/devotional materials [] Provided toy/stuffed animal, coloring book to patient or family member [] Provided Communion [] Anointing/[place] [] Salvation [] Completed spiritual assessment [] Other: Impact on Illness or Injury [] Angry [] Fearful [] Anxious [] Often cries [] Exhaustion [] Unable to work [] Unable to attend restorationism [] Unable to walk/stand [] Unable to read [] Unable to drive [] Unable to eat/drink [] Unable to sleep [] Unable to be with family [] Patient intubated [] Other: Summary Time spent with patient
--- NOTE | 2020-02-23 13:33 | P.PN_ITS ---
Subjective Subjective: Interval history: Patient has no complaints this morning, no fevers, chills, no nausea, no vomiting, still has lower pelvic pain, Vitals/I&O/Wt Last Vital Signs Temp 97.6 F 02/23/20 11:33 Pulse 97 02/23/20 11:33 Resp 17 02/23/20 11:33 BP 112/64 02/23/20 11:33 Pulse Ox 98 02/23/20 11:33 02/22/20 02/23/20 02/23/20 22:59 06:59 14:59 Intake Total 340 / 340 400 / 740 580 / 580 Output Total 720 / 720 Balance 340 / 340 -320 / 20 580 / 580 Weight last 48 hrs Weight 90.718 kg Physical Exam Const: COMMON NORMALS: no acute distress and patient oriented x3 HENMT: COMMON NORMALS: normocephalic HEAD & SCALP: normocephalic Neck/C-Spine: COMMON NORMALS: no JVD Resp: COMMON NORMALS: normal respiratory effort, No retractions, No use of accessory muscles and clear to auscultation bilaterally AUSCULTATION: clear to auscultation bilaterally Cardio: COMMON NORMALS: no JVD, regular rate, regular rhythm, S1 normal heart sound present and S2 normal heart sound present RATE: regular rate RHYTHM: regular rhythm HEART SOUNDS: S1 normal heart sound present and S2 normal heart sound present GI: COMMON NORMALS: Normal to inspection, nondistended, normoactive bowel sounds present, Soft to palpation, non-tender, No hepatosplenomegaly present, no masses and no bruits PALPATION: Yes Soft to palpation and Yes No hep atosplenomegaly present Extremity: COMMON NORMALS: capillary refill normal, no clubbing, cyanosis or edema, no calf tenderness and no pedal edema Neuro: COMMON NORMALS: patient oriented x3 Psych: COMMON NORMALS: mental status grossly normal Data : 02/23/20 03:54 02/23/20 03:54 Micro: Microbiology 02/23/20 03:54 Blood Culture - Preliminary Blood SPECIMEN COLLECTED 02/22/20 13:19 Blood Culture - Preliminary Blood SPECIMEN COLLECTED A&P Assessment and plan (1) Acute pyelonephritis: -Has a history of recurrent ESBL E. coli UTIs, recent history of ESBL UTI with bacteremia, finished meropenem course -Risk factors include chronic antibiotic use, chronic Drake, for BPH -Has bilateral flank pain, white blood cell count 12.7, CT scan no evident evidence obstructive uropathy -no evidence of sepsis, no hypotension, no tachycardia, no fevers, no significant leukocytosis, inflammatory marker elevation -Creatinine is about at baseline at 1.5, improved from yesterday which was 1.9 -Clinically this seems a lot like pyelonephritis -There are some concerns for bacteremia, given his fatigue, malaise, chills, and history of ESBL bacteremia in the past -Given history of ESBL will admit Plan: -Admit to general medical floors -Drake catheter has been changed by the ER yesterday, on 4 to the tip was not sent for culture -Follow urine cultures, blood cultures -Continue ertapenem -Continue home [place] -Monitor for clinical progress, monitor urine -Patient is a full code -Lovenox for DVT prophylaxis patient was advised to get up, ambulate - Status: Acute (2) COPD (chronic obstructive pulmonary disease): Status: Chronic (3) Osteoarthritis: Status: Chronic Qualifiers: Osteoarthritis location: multiple joints Osteoarthritis type: unspecified Qualified Code(s): M15.9 - Polyosteoarthritis, unspecified (4) Hypertension: Status: Chronic Qualifiers: Hypertension type: essential hypertension Qualified Code(s): I10 - Essential (primary) hypertension (5) History of ESBL E. coli infection: Status: Chronic (6) Aortic stenosis, mild: Status: Chronic (7) Diabetes mellitus, type II: Low-dose sliding scale Status: Chronic Qualifiers: Diabetes mellitus nursing home insulin use: without long term care pharmacist use Diabetes mellitus complication status: with kidney complications Diabetes mellitus complication detail: with chronic kidney disease Chronic kidney disease stage: stage 3 (moderate) Qualified Code(s): E11.22 - Type 2 diabetes mellitus with diabetic chronic kidney disease; N18.3 - Chronic kidney disease, stage 3 (moderate) (8) BPH with urinary obstruction: Status: Chronic (9) Chronic indwelling Drake catheter: Status: Chronic (10) Chronic kidney disease, stage 3: Status: Chronic Attestations Medical Necessity Statement*: Patient requires continued hospitalization for a cute pyelonephritis, history of ESBL E. coli UTIs in the past, monitor urine cultures, blood cultures Coding Level of Care Code Acute Clinical Program Coordinator for [facility] Fwd Diagnoses Acute pyelonephritis N10 COPD (chronic obstructive pulmonary disease) J44.9 Osteoarthritis M15.9 Osteoarthritis location: multiple joints Osteoarthritis type: unspecified Hypertension I10 Hypertension type: essential hypertension History of ESBL E. coli infection Z86.19 Aortic stenosis, mild I35.0 Diabetes mellitus, type II E11.22; N18.3 Diabetes mellitus nursing home insulin use: without long term care pharmacist use Diabetes mellitus complication status: with kidney complications Diabetes mellitus complication detail: with chronic kidney disease Chronic kidney disease stage: stage 3 (moderate) BPH with urinary obstruction N40.1; N13.8 Chronic indwelling Drake catheter Z96.0 Chronic kidney disease, stage 3 N18.3
[2020-02-23 17:03] LABS: Glucose Point of Care 111 mg/dL (70-110)
[2020-02-23] MEDS: ondansetron 2 mg/ML SDV 2 mL 4 MG IVP (17:56)
[2020-02-23] MEDS: ALPRAZolam 0.5 mg Tablet PO (17:59)
[2020-02-23 20:53] LABS: Glucose Point of Care 199 mg/dL (70-110)
[2020-02-24] VITALS (10 sets, daily range): BP systolic 103–133; BP diastolic 64–73; PULSE 83–122; RESP 16–24; TEMP 36.8–37.3; O2SAT 93–99
[2020-02-24] MEDS: ipratropium-albuterol 3 mL Neb 2.5 ML INHALATION ×3 (01:06→08:04)
[2020-02-24] MEDS: HYDROcodone-acetaminophen 5-325 mg Tablet 1 TAB PO ×2 (04:59→12:04)
[2020-02-24 05:44] LABS: Basophils % 0.4 %; Eosinophils # 0.5 10^3/uL (0.0-0.8); Eosinophils % 4.6 %; Hematocrit 35.2 % (42.0-52.0); Hemoglobin 10.7 g/dL (11.7-16.6); Lymphocytes # 1.2 10^3/uL (0.8-4.8); Lymphocytes % 11.6 %; Mean Corpuscular HGB Conc 30.4 g/dL (30.0-36.0); Mean Corpuscular Hemoglobin 26.8 pg (28.0-34.0); Mean Platelet Volume 10.7 fL (7.4-10.4); Monocytes % 9.3 %; Neutrophils # 7.58 10^3/uL (1.8-7.7); Neutrophils % 73.7 %; Nucleated Red Blood Cells % 0 %; Platelet Count 179 10^3/cmm (130-400); Red Cell Distribution Width 15.3 % (12.1-15.1); White Blood Count 10.3 10^3/uL (4.0-10.0)
[2020-02-24 06:08] LABS: Alanine Aminotransferase 8 U/L (0-41); Albumin Level 3.6 g/dL (3.5-5.2); Alkaline Phosphatase 93 IU/L (40-130); Anion Gap 13.2 (5-19); Aspartate Amino Transferase 15 U/L (0-40); Blood Urea Nitrogen 26 mg/dL (8-23); C Reactive Protein 39.3 mg/L (0.0-4.9); Calcium 9.6 mg/dL (8.5-10.5); Carbon Dioxide 30 mmol/L (22-29); Chloride 98 mmol/L (98-107); Creatinine Clr Calc Pharmacy 42.9596; Glucose 118 mg/dL (65-115); Magnesium 1.4 mg/dL (1.7-2.3); Osmolality Calculated 282 mOsm/kg (285-295); Phosphorus 3.5 mg/dL (2.5-4.5); Potassium 4.2 mmol/L (3.5-5.1); Sodium 137 mmol/L (136-145); Total Bilirubin 0.2 mg/dL (0.15-1.2); Total Protein 6.6 g/dL (6.6-8.7)
[2020-02-24] MEDS: enoxaparin 40 mg/0.4 mL Syringe SUBCUT (09:02)
[2020-02-24] MEDS: aspirin 81 mg EC Tablet PO (09:02)
[2020-02-24] MEDS: sertraline 50 mg Tablet 25 MG PO (09:02)
[2020-02-24] MEDS: metoprolol tartrate 25 mg Tablet 12.5 MG PO (09:03)
[2020-02-24] MEDS: ALPRAZolam 0.5 mg Tablet PO (09:03)
[2020-02-24] MEDS: FUROsemide 40 mg Tablet PO (09:03)
[2020-02-24 09:11] LABS: Glucose Point of Care 198 mg/dL (70-110)
--- NOTE | 2020-02-24 11:24 | PM.DCS ---
Discharge Providers Date of Admission: 02/23/20 18:41 Date of Discharge: February 24, 2020 Attending Provider at Admission: Abimael Gil MD Attending Provider at Discharge: Abimael Gil MD Primary Care Provider: Erik Adkins DO Diagnoses at Discharge Discharge Diagnosis (1) Acute pyelonephritis: Status: Acute (2) COPD (chronic obstructive pulmonary disease): Status: Chronic (3) Osteoarthritis: Status: Chronic Problem details: chronic back and joint pains Qualifiers: Osteoarthritis location: multiple joints Osteoarthritis type: unspecified Qualified Code(s): M15.9 - Polyosteoarthritis, unspecified (4) Hypertension: Status: Chronic Qualifiers: Hypertension type: essential hypertension Qualified Code(s): I10 - Essential (primary) hypertension (5) History of ESBL E. coli infection: Status: Chronic Problem details: urine (6) Aortic stenosis, mild: Status: Chronic (7) Diabetes mellitus, type II: Status: Chronic Qualifiers: Chronic kidney disease stage: stage 3 (moderate) Diabetes mellitus complication detail: with chronic kidney disease Diabetes mellitus complication status: with kidney complications Diabetes mellitus senior living insulin use: without senior living use Qualified Code(s): E11.22 - Type 2 diabetes mellitus with diabetic chronic kidney disease; N18.3 - Chronic kidney disease, stage 3 (moderate) (8) BPH with urinary obstruction: Status: Chronic (9) Chronic indwelling Drake catheter: Status: Chronic (10) Chronic kidney disease, stage 3: Status: Chronic Reason for Visit Reason for Visit: KIDNEY PAIN Hospital Course Discharge Summary: This is a 79-year-old male with a past medical history of [id number] type 2 diabetes mellitus, COPD 2 L oxygen dependent, anxiety and depression on Xanax, chronic back pain on [place], history of chronic indwelling Drake catheter for urinary retention and BPH, history of recurrent ESBL UTIs, recent hospitalization for ESBL UTI with bacteremia finished meropenem course, recently discharged from the long term, currently at home with daughter, and receiving home health care, who presents [facility] due to concerns for urinary tract infection-like symptoms. Patient complained of pelvic pain, abdominal pain, fatigue, malaise, chills, bilateral flank pain. Patient was admitted to [facility] due to concerns for acute pyelonephritis, and recurrent ESBL E. coli UTI, admitted to the general medical floors, received Primaxin as antibiotic coverage, he remained hemodynamically stable, afebrile, leukocytosis improved, he clinically improved, his Drake catheter was changed on his recent ER visit, his urine cultures grew ESBL E. coli, sensitive to Bactrim. I have discharged patient on 14 remaining days of Bactrim. Patient is to follow-up with Dr. Bustillos as outpatient for options related to his chronic Drake catheter, this is likely the source of his recurrent ESBL infections. Patient's blood cultures have been negative for 48 hours. On discharge, patient was complaining of worsening of his fatigue, and states that he has difficulty ambulating, I advised patient that this will require extensive physical therapy, if he chooses he could go to a long term to receive physical therapy and rehab. Patient refused long term care. Patient already has help at home with his daughter and home health care. I advised patient to continue the services, follow-up with his primary care provider for consideration for physical therapy. Physical Exam Const: COMMON NORMALS: no acute distress and patient oriented x3 HENMT: COMMON NORMALS: normocephalic HEAD & SCALP: normocephalic Neck/C-Spine: COMMON NORMALS: no JVD Resp: COMMON NORMALS: normal respiratory effort, No retractions, No use of accessory muscles and clear to auscultation bilaterally AUSCULTATION: clear to auscultation bilaterally Cardio: COMMON NORMALS: no JVD, regular rate, regular rhythm, S1 normal heart sound present and S2 normal heart sound present RATE: regular rate RHYTHM: regular rhythm HEART SOUNDS: S1 normal heart sound present and S2 normal heart sound present GI: COMMON NORMALS: Normal to inspection, nondistended, normoactive bowel sounds present, Soft to palpation, non-tender, No hepatosplenomegaly present, no masses and no bruits PALPATION: Yes Soft to palpation and Yes No hepatosplenomegaly present Extremity: COMMON NORMALS: capillary refill normal, no clubbing, cyanosis or edema, no calf tenderness and no pedal edema Neuro: COMMON NORMALS: patient oriented x3 Psych: COMMON NORMALS: mental status grossly normal Urinary Catheter Management^: Drake: Cath Placed During This Visit: yes Reason for Continuing Indwelling Catheter: Chronic Indwelling Urinary Catheter on Admission Urinary Catheter Date of Insertion: 02/22/20 Discharge Data Data Completed and Pending: Completed Studies During Hospitalization Category Date Time Status CT abdomen pelvis w con* [id number] Stat Cat Scan 02/22/20 16:40 Completed XR chest 1V saniya ble [id number] Urgent Exams 02/22/20 14:57 Completed Pending at discharge Category Date Time Status Blood Culture Sta t Lab 02/22/20 13:19 Results C Reactive Protei n AM LABS Lab 02/25/20 04:00 Ordered Complete Blood Co unt w/Auto AM LABS Lab 02/25/20 04:00 Ordered Comprehensive Met abolic Panel AM LA BS Lab 02/25/20 04:00 Ordered Magnesium AM LABS Lab 02/25/20 04:00 Ordered Phosphorus AM LAB S Lab 02/25/20 04:00 Ordered Streptococcus Cul ture Group A Stat Lab 02/22/20 15:26 Received Labs from last 24 hours 02/24/20 02/24/20 02/24/20 09:01 05:23 05:23 WBC 10.3 H RBC 4.00 L Hgb 10.7 L Hct 35.2 L MCV 88.0 MCH 26.8 L MCHC 30.4 RDW 15.3 H Plt Count 179 MPV 10.7 H Neut % (Auto) 73.7 Lymph % (Auto) 11.6 [place] % (Auto) 9.3 Eos % (Auto) 4.6 Baso % (Auto) 0.4 Neut # (Auto) 7.58 Lymph # (Auto) 1.2 [place] # (Auto) 1.0 H Eos # (Auto) 0.5 Baso # (Auto) 0.0 Nucleated RBC % (a uto) 0 Nucleated RBCs # 0.0 Sodium 137 Potassium 4.2 Chloride 98 Carbon Dioxide 30 H Anion Gap 13.2 BUN 26 H Creatinine 1.5 H GFR Calculation Not Reportable Glucose 118 H POC Glucose 198 Calculated Osmolal ity 282 L Calcium 9.6 Phosphorus 3.5 Magnesium 1.4 L Total Bilirubin 0.2 AST 15 ALT 8 Alkaline Phosphata se 93 C-Reactive Protein 39.3 H Total Protein 6.6 Albumin 3.6 Globulin 3.0 02/23/20 02/23/20 20:50 16:46 WBC RBC Hgb Hct MCV MCH MCHC RDW Plt Count MPV Neut % (Auto) Lymph % (Auto) [place] % (Auto) Eos % (Auto) Baso % (Auto) Neut # (Auto) Lymph # (Auto) [place] # (Auto) Eos # (Auto) Baso # (Auto) Nucleated RBC % (a uto) Nucleated RBCs # Sodium Potassium Chloride Carbon Dioxide Anion Gap BUN Creatinine GFR Calculation Glucose POC Glucose 199 111 Calculated Osmolal ity Calcium Phosphorus Magnesium Total Bilirubin AST ALT Alkaline Phosphata se C-Reactive Protein Total Protein Albumin Globulin Vitals: Last Vital Signs Temp 98.4 F 02/24/20 07:45 Pulse 115 H 02/24/20 08:04 Resp 16 02/24/20 08:04 BP 122/73 02/24/20 07:45 Pulse Ox 93 02/24/20 08:04 Discharge Plan Discharge Patient Disposition: Home Condition: Stable Prescriptions: New sulfamethoxazole-trimethoprim [Bactrim DS] 800-160 mg tablet 1 tab PO BID 14 Days Qty: 28 RF: 0 Continued metoprolol tartrate 25 mg Tablet 12.5 mg PO BID Qty: 0 RF: 0 ipratropium-albuterol 0.5 mg-3 mg(2.5 mg base)/3 mL solution for nebulization 2.5 ml INHALATION Q4H PRN (Reason: Shortness Of Breath Or Wheezing) RF: 0 hydrocodone-acetaminophen 5-325 mg tablet 1 tab PO Q6H PRN (Reason: Pain) RF: 0 tamsulosin 0.4 mg Capsule 0.4 mg PO DAILY Qty: 30 RF: 0 alprazolam [Xanax] 0.5 mg Tablet 0.5 - 1 mg PO Q4H PRN (Reason: Anxiety) RF: 0 aspirin [Aspir-81] 81 mg Tablet,Delayed Release (Dr/Ec) 81 mg PO DAILY RF: 0 sertraline 25 mg tablet 25 mg PO DAILY RF: 0 furosemide [Lasix] 20 mg tablet 40 mg PO DAILY RF: 0 oxybutynin chloride 5 mg tablet 5 mg PO TID PRN (Reason: Bladder Spasms) RF: 0 Discharge Orders: Discharge Order (Routine); Ordered 02/24/20 Ordered By: Abimael Gil Referrals: Villa Bustillos MD [Physician] - 2 weeks Discharge Diet: Cardiac Discharge Activity: Resume usual activity Patient Instructions: Urinary Tract Infection in Men (GEN), Drake Catheter Placement and Care (DC), Extended Spectrum Beta Lactamase (GEN) Activity Restrictions/Additional Instructions: -For your UTI, and acute pyelonephritis, urine cultures have grown ESBL E. coli, sensitive to Bactrim, continue Bactrim twice daily for the next 14 days -If you have worsening fevers, chills, nausea, vomiting, dysuria please come back to emergency room -Please follow-up with Dr. Bustillos in the next 2 weeks for options available for chronic urinary tension and prostamegaly Discharge Attestations Time Spent in Discharge Care*: less than 30 min Quality Metrics Clinical Quality Measures During this hospital stay, did patient experience: None Coding Level of Care Code Acute Supervisor Parking Lot for [facility] Fwd Exam Comprehensive Diagnoses Acute pyelonephritis N10 COPD (chronic obstructive pulmonary disease) J44.9 Osteoarthritis M15.9 Osteoarthritis location: multiple joints Osteoarthritis type: unspecified Hypertension I10 Hypertension type: essential hypertension History of ESBL E. coli infection Z86.19 Aortic stenosis, mild I35.0 Diabetes mellitus, type II E11.22; N18.3 Chronic kidney disease stage: stage 3 (moderate) Diabetes mellitus complication detail: with chronic kidney disease Diabetes mellitus complication status: with kidney complications Diabetes mellitus tactical debriefer officer insulin use: without tactical debriefer officer use BPH with urinary obstruction N40.1; N13.8 Chronic indwelling Drake catheter Z96.0 Chronic kidney disease, stage 3 N18.3
[2020-02-24 11:31] LABS: Glucose Point of Care 167 mg/dL (70-110)
[2020-02-24] MEDS: ondansetron 2 mg/ML SDV 2 mL 4 MG IVP (12:21)
--- NOTE | 2020-02-25 12:10 | PC.RESP ---
Pulmonary Rehab information sent to patient.
== END 2020-02-24 16:15 | disposition home or self-care (01) | DRG 699 ==
LOC: ER 15:52 → MEDSURG 19:19
PROVIDERS: Family Medicine; Admitting Provider Family Medicine; PCP Family Medicine; Visit Provider Family Medicine
DX: T83.518A Infection and inflammatory reaction due to other urinary catheter, initial encounter (principal); N10 Acute pyelonephritis; N13.8 Other obstructive and reflux uropathy; N39.0 Urinary tract infection, site not specified; Y73.1 Therapeutic (nonsurgical) and rehabilitative gastroenterology and urology devices associated with adverse incidents; J44.9 Chronic obstructive pulmonary disease, unspecified; Z99.81 Dependence on supplemental oxygen; F41.8 Other specified anxiety disorders; G89.29 Other chronic pain; M54.9 Dorsalgia, unspecified; Z96.0 Presence of urogenital implants; N40.1 Benign prostatic hyperplasia with lower urinary tract symptoms; Z87.440 Personal history of urinary (tract) infections; I35.0 Nonrheumatic aortic (valve) stenosis; E11.22 Type 2 diabetes mellitus with diabetic chronic kidney disease; I12.9 Hypertensive chronic kidney disease with stage 1 through stage 4 chronic kidney disease, or unspecified chronic kidney disease; N18.3 Chronic kidney disease, stage 3 (moderate); M19.90 Unspecified osteoarthritis, unspecified site; Z86.19 Personal history of other infectious and parasitic diseases; R53.83 Other fatigue; Z79.82 Long term (current) use of aspirin; Z79.891 Long term (current) use of opiate analgesic; B96.20 Unspecified Escherichia coli [E. coli] as the cause of diseases classified elsewhere
CPT/HCPCS: 12345; 36415; 36416; 71045; 74177; 80053; 81001; 82962; 83605; 83690; 83735; 84100; 84145; 85025; 86140; 87040; 87077; 87081; 87086; 87186; 87880; 94640; 96365; 96372; 96375; 99282; 99283; G0378; J0696; J0743; J1650; J1815; J2270; J2405; Q9967

== ENCOUNTER 2020-02-27 12:08 | Emergency (ER) | payer MEDICARE, MEDICAID, SELFPAY ==
[2020-02-27 12:09] VITALS: BMI 30.4
[2020-02-27 12:14] VITALS: BP 115/71; PULSE 84; RESP 20; TEMP 532.7; TEMP 991; O2SAT 100
--- NOTE | 2020-02-27 12:38 | W.ED.EXTPRO ---
HPI - Extremity Problem General: Chief complaint: Extremity Problem,Nontraumatic Stated complaint: LEG PAIN Time Seen by Provider: 02/27/20 12:08 Source: patient Mode of arrival: EMS Limitations: no limitations History of Present Illness: HPI Narrative: Patient is an 79-year-old male who presents to ED today with a complaint of bilateral lower extremity pain. Patient tells me he has had pain in his legs for a long time but states they seem to be worse after he had compression stockings placed on his legs during his recent inpatient hospitalization. Patient was admitted for possible acute pyelonephritis related to ESBL. He was just discharged yesterday. He was complaining of fatigue and trouble with ambulation upon discharge and offered intermediate placement however he refused. His daughter who was contacted via telephone during this visit tells me that once they got home patient changed his mind therefore placement at [facility] was set up. Daughter tells me they were supposed to pick patient up at 2 PM today at his home but tells me earlier today he had a fall this they wanted him seen in the emergency department prior to going. Patient denies any injury sustained during the fall. He states he fell because his legs buckled. MD Complaint: extremity pain Onset (ago): month(s) Pain Consistency: constant Location: left, right and lower extremity Radiation: none Exacerbating factors: weight bearing Associated symptoms: Reports no associated symptoms; Deny chest pain, fever(s) or rash Review of Systems Const: Denies: fever(s), chills or body aches Card: Denies: chest pain Resp: Denies: dyspnea (chronic-not worsening) GI: Denies: abdominal pain, nausea or vomiting : Reports: other (chronic borja) Musc: Reports: extremity pain; Denies: neck pain, back pain, extremity swelling, joint pain or joint swelling Skin/Breast: Denies: rash Neuro: Reports: difficulty walking; Denies: headache(s), sensory changes or dizziness PFS ED PFSH: Medical History (Updated 02/27/20 @ 14:22 by BETZY Sharp) Aortic stenosis, mild BPH with urinary obstruction CHF (congestive heart failure) Chronic kidney disease, stage 3 COPD (chronic obstructive pulmonary disease) COPD (chronic obstructive pulmonary disease) Diabetes mellitus, type II History of ESBL E. coli infection urine Hypertension Osteoarthritis chronic back and joint pains Surgical History No pertinent past surgical history denies any surgeries Family History Family/Other No problems noted. Social History Smoking and tobacco status: never smoked Alcohol intake: never Marital status: / Current occupational status: retired and disabled Physical Exam Const: COMMON NORMALS: no acute distress, patient oriented x3, no limitations and alert GENERAL APPEARANCE: cooperative and disheveled HENMT: COMMON NORMALS: normocephalic and atraumatic HEAD & SCALP: normocephalic and atraumatic Chest: COMMONS NORMALS: normal inspection of the chest and normal palpation of entire chest wall Resp: COMMON NORMALS: normal respiratory effort and clear to auscultation bilaterally AUSCULTATION: clear to auscultation bilaterally Cardio: COMMON NORMALS: regular rate and regular rhythm RATE: regular rate RHYTHM: regular rhythm GI: COMMON NORMALS: Normal to inspection, nondistended, normoactive bowel sounds present, Soft to palpation, non-tender, No hepatosplenomegaly present and no masses PALPATION: Yes Soft to palpation and Yes No hepatosplenomegaly present : BLADDER/KIDNEY EXAM: Yes catheter in place Extremity: COMMON NORMALS: normal to inspection, full ROM, capillary refill normal, no joint enlargement, no clubbing, cyanosis or edema, no calf tenderness and no pedal edema Neuro: COMMON NORMALS: patient oriented x3, moves all extremities, no focal motor deficits and no sensory deficits noted SENSORIUM/ORIENTATION: Yes alert OTHER: pt was able to ambulate here with walker-mildly unsteady Course Vital Signs: Vital signs: Vital Signs Temperature 991 F H 02/27/20 12:14 Pulse Rate 84 02/27/20 12:14 Respiratory Rate 20 H 02/27/20 12:14 Blood Pressure 115/71 02/27/20 12:14 Pulse Oximetry 100 02/27/20 12:14 MDM - Extremity (Nontraumatic) MDM Narrative: Medical decision making narrative: Patient ultimately was offered intermediate placement yesterday prior to his discharge from the hospital however he refused. Daughter tells me when he got home he then changed his mind. Hospice then arranged for patient to go to [facility] today. Patient tells me he had a fall earlier today and [facility] wanted him evaluated prior to him going. Patient denies any injury sustained during the fall. Patient tells me his bilateral lower leg pain has been present for several months-daughter confirms this. Patient's labs today do not show any significant differences from when he was in the hospital. He will continue the current plan of taking Bactrim for his ESBL infection and following up with Dr. Bustillos. Lab Data: Labs: Lab Results 02/27/20 02/27/20 Range/Units 13:04 13:04 WBC 14.1 H (4.0-10.0) 10^3/ uL RBC 4.45 (4.1-5.3) 10^6/u L Hgb 11.5 L (11.7-16.6) g/dL Hct 38.3 L (42.0-52.0) % MCV 86.1 (80-94) fL MCH 25.8 L (28.0-34.0) pg MCHC 30.0 (30.0-36.0) g/dL RDW 14.8 (12.1-15.1) % Plt Count 222 (130-400) 10^3/c mm MPV 10.3 (7.4-10.4) fL Neut % (Auto) 81.5 % Lymph % (Auto) 7.8 % [place] % (Auto) 7.8 % Eos % (Auto) 2.1 % Baso % (Auto) 0.3 % Neut # (Auto) 11.50 H (1.8-7.7) 10^3/u L Lymph # (Auto) 1.1 (0.8-4.8) 10^3/u L [place] # (Auto) 1.1 H (0.2-0.9) 10^3/u L Eos # (Auto) 0.3 (0.0-0.8) 10^3/u L Baso # (Auto) 0.0 (0.0-0.1) 10^3/u L Nucleated RBC % (a uto) 0 % Nucleated RBCs # 0.0 /100WBC Sodium 136 (136-145) mmol/L Potassium 4.3 (3.5-5.1) mmol/L Chloride 95 L (98-107) mmol/L Carbon Dioxide 31 H (22-29) mmol/L Anion Gap 14.3 (5-19) BUN 37 H (8-23) mg/dL Creatinine 1.8 H (0.7-1.2) mg/dL GFR Calculation Not Reportable Glucose 115 (65-115) mg/dL Calculated Osmolal ity 280 L (285-295) mOsm/k g Calcium 9.7 (8.5-10.5) mg/dL Total Bilirubin 0.2 (0.15-1.2) mg/dL AST 20 (0-40) U/L ALT 12 (0-41) U/L Alkaline Phosphata se 137 H (40-130) IU/L Creatine Kinase 31 L (39-308) U/L NT-Pro-B Natriuret Pep 376 (0-450) pg/mL Total Protein 7.0 (6.6-8.7) g/dL Albumin 3.7 (3.5-5.2) g/dL Globulin 3.3 (1.3-4.6) g/dL Discharge Plan Discharge Patient Disposition: Xfer [facility] Clinical Impression: Complaints of leg weakness Condition: Stable Prescriptions: No Action metoprolol tartrate 25 mg Tablet 12.5 mg PO BID Qty: 0 RF: 0 ipratropium-albuterol 0.5 mg-3 mg(2.5 mg base)/3 mL solution for nebulization 2.5 ml INHALATION Q4H PRN (Reason: Shortness Of Breath Or Wheezing) RF: 0 hydrocodone-acetaminophen 5-325 mg tablet 1 tab PO Q6H PRN (Reason: Pain) RF: 0 tamsulosin 0.4 mg Capsule 0.4 mg PO DAILY Qty: 30 RF: 0 Bactrim DS 800-160 mg tablet 1 tab PO BID 14 Days Qty: 28 RF: 0 alprazolam [Xanax] 0.5 mg Tablet 0.5 - 1 mg PO Q4H PRN (Reason: Anxiety) RF: 0 aspirin [Aspir-81] 81 mg Tablet,Delayed Release (Dr/Ec) 81 mg PO DAILY RF: 0 sertraline 25 mg tablet 25 mg PO DAILY RF: 0 furosemide [Lasix] 20 mg tablet 40 mg PO DAILY RF: 0 oxybutynin chloride 5 mg tablet 5 mg PO TID PRN (Reason: Bladder Spasms) RF: 0 Discharge Orders: Discharge Order (Routine); Ordered 02/27/20 Ordered By: Jonelle Pearl Referrals: Erik Adkins DO [Primary Care Provider] - Coding Level of Care Code ED Promotions Director for [facility] Fwd Exam Comprehensive
[2020-02-27 13:10] LABS: Basophils % 0.3 %; Eosinophils # 0.3 10^3/uL (0.0-0.8); Eosinophils % 2.1 %; Hematocrit 38.3 % (42.0-52.0); Hemoglobin 11.5 g/dL (11.7-16.6); Lymphocytes # 1.1 10^3/uL (0.8-4.8); Lymphocytes % 7.8 %; Mean Corpuscular Hemoglobin 25.8 pg (28.0-34.0); Mean Corpuscular Volume 86.1 fL (80-94); Mean Platelet Volume 10.3 fL (7.4-10.4); Monocytes # 1.1 10^3/uL (0.2-0.9); Monocytes % 7.8 %; Neutrophils % 81.5 %; Nucleated Red Blood Cells % 0 %; Platelet Count 222 10^3/cmm (130-400); Red Blood Count 4.45 10^6/uL (4.1-5.3); Red Cell Distribution Width 14.8 % (12.1-15.1); White Blood Count 14.1 10^3/uL (4.0-10.0)
[2020-02-27 13:36] LABS: Alanine Aminotransferase 12 U/L (0-41); Albumin Level 3.7 g/dL (3.5-5.2); Alkaline Phosphatase 137 IU/L (40-130); Anion Gap 14.3 (5-19); Aspartate Amino Transferase 20 U/L (0-40); Blood Urea Nitrogen 37 mg/dL (8-23); Calcium 9.7 mg/dL (8.5-10.5); Carbon Dioxide 31 mmol/L (22-29); Chloride 95 mmol/L (98-107); Creatine Phosphokinase 31 U/L (39-308); Globulin 3.3 g/dL (1.3-4.6); Glucose 115 mg/dL (65-115); NT Pro B Type Natriuretic Pept 376 pg/mL (0-450); Osmolality Calculated 280 mOsm/kg (285-295); Potassium 4.3 mmol/L (3.5-5.1); Sodium 136 mmol/L (136-145); Total Bilirubin 0.2 mg/dL (0.15-1.2)
--- NOTE | 2020-02-27 14:40 | DCPLANNER ---
Addendum entered by Priscila Gomez 02/27/20 14:53: [place] [id number] Original Note: billiard parlor manager arranged transportation for patient to the detention with medicaid.
[2020-02-27 15:46] VITALS: BP 151/80; PULSE 87; RESP 18; O2SAT 96
== END 2020-02-27 15:49 | disposition skilled nursing facility (03) ==
PROVIDERS: Emergency Provider Physician Assistant; PCP Family Medicine
DX: R53.1 Weakness (principal); Z79.82 Long term (current) use of aspirin; I13.0 Hypertensive heart and chronic kidney disease with heart failure and stage 1 through stage 4 chronic kidney disease, or unspecified chronic kidney disease; E11.22 Type 2 diabetes mellitus with diabetic chronic kidney disease; N18.3 Chronic kidney disease, stage 3 (moderate); I50.9 Heart failure, unspecified; J44.9 Chronic obstructive pulmonary disease, unspecified
CPT/HCPCS: 12345; 36415; 80053; 82550; 83880; 85025; 99281; 99283

== ENCOUNTER 2020-04-01 09:49 | Inpatient (IN) | payer MEDICARE, MEDICAID, SELFPAY ==
[2020-04-01] VITALS (11 sets, daily range): BP systolic 135–154; BP diastolic 80–106; PULSE 61–109; RESP 18–22; TEMP 36.6–36.9; O2SAT 92–100; BMI 32.6
--- NOTE | 2020-04-01 10:06 | XRR_ITS ---
PROCEDURE INFORMATION: Exam: XR Chest, 1 View Exam date and time: 04/01/2020 10:26 AM Age: 80 years old Clinical indication: Cough and shortness of breath TECHNIQUE: Imaging protocol: XR of the chest Views: 1 view. COMPARISON: CR XR chest 1V portable [id number] 02/22/2020 3:01 PM FINDINGS: Lungs: Suboptimal evaluation of the right lung base. No consolidation. Pleural space: Dipped no definite pleural effusion. No pneumothorax. Heart/Mediastinum: No cardiomegaly. Diaphragm: Right hemidiaphragm elevation. Bones/joints: No acute findings. XR/XR chest 1V portable [id number] IMPRESSION: No acute findings.
--- NOTE | 2020-04-01 10:06 | ECG_ITS ---
[facility] Test Date: 2020-04-01 Pat Name: Vladimir Farnsworth Department: Room: Gender: Male Tire Technician: : 1940 Requested By: Yuri Coreas Order Number: [id number] Maddie MD: Amnia Nelson M.D. Measurements Intervals [place] Rate: 107 P: 38 FL: 178 QRS: 105 QRSD: 93 T: -12 QT: 319 QTc: 427 Interpretive Statements SINUS TACHYCARDIA RIGHT AXIS DEVIATION [QRS AXIS > 100] POSSIBLE INFERIOR MYOCARDIAL INFARCTION , OF INDETERMINATE AGE [30 ms Q WAVE IN II/aVF] Compared to ECG 05/06/2019 17:24:40 Right-axis deviation now present Myocardial infarct finding now present Incomplete right bundle-branch block no longer present Atrial abnormality no longer present Electronically Signed On 04-01-2020 18:29:35 CDT by Amina Nelson M.D. [id number]
[2020-04-01 10:23] LABS: Basophils # 0.1 10^3/uL (0.0-0.1); Basophils % 0.5 %; Eosinophils # 0.6 10^3/uL (0.0-0.8); Hematocrit 37.6 % (42.0-52.0); Hemoglobin 11.3 g/dL (11.7-16.6); Lymphocytes # 1.4 10^3/uL (0.8-4.8); Lymphocytes % 12.6 %; Mean Corpuscular HGB Conc 30.1 g/dL (30.0-36.0); Mean Corpuscular Volume 86.4 fL (80-94); Mean Platelet Volume 9.9 fL (7.4-10.4); Monocytes # 0.8 10^3/uL (0.2-0.9); Monocytes % 6.6 %; Neutrophils # 8.47 10^3/uL (1.8-7.7); Neutrophils % 74.9 %; Nucleated Red Blood Cells % 0 %; Platelet Count 200 10^3/cmm (130-400); Red Blood Count 4.35 10^6/uL (4.1-5.3); Red Cell Distribution Width 15.4 % (12.1-15.1); White Blood Count 11.3 10^3/uL (4.0-10.0)
--- NOTE | 2020-04-01 10:32 | ED_ITS ---
Documented by User: JUN Baldwin 04/02/20 07:07 HPI - SOB/Dyspnea General: Chief Complaint: Shortness of Breath/Dyspnea Stated Complaint: SOB/COUGH Time Seen by Provider: 04/01/20 10:00 History of Present Illness: HPI Narrative: Patient arrives via ambulance with complaint of increasing shortness of breath and cough for the last few days. MD elicited complaint: shortness of breath and cough Pertinent past history: COPD and congestive heart failure Onset (ago): day(s) Timing: progressively worsening Severity: similar to previous episodes Exacerbating factors: exertion Relieving factors: oxygen Known history of: COPD and congestive heart failure Associated symptoms: Reports other (Says his kidneys feel full); Deny abdominal pain, chest pain, extremity pain, fever(s), nausea or vomiting Review of Systems Const: Denies: fever(s), chills or body aches Eyes: Denies: change in vision or blurry vision ENMT: Denies: throat pain or nasal congestion Card: Denies: chest pain or dyspnea on exertion Resp: Reports: dyspnea and non-productive cough; Denies: productive cough GI: Denies: abdominal pain, nausea or vomiting : Denies: difficulty urinating (Has a Drake in his kidneys feel full) Musc: Denies: extremity pain Skin/Breast: Denies: rash Neuro: Denies: headache(s) Psych: Denies: anxiety or depression Riky/Lymph: Denies: easy bruising PFS ED PFSH: Medical History Aortic stenosis, mild BPH with urinary obstruction CHF (congestive heart failure) Chronic kidney disease, stage 3 COPD (chronic obstructive pulmonary disease) COPD (chronic obstructive pulmonary disease) Diabetes mellitus, type II History of ESBL E. coli infection urine Hypertension Osteoarthritis chronic back and joint pains Surgical History No pertinent past surgical history denies any surgeries Family History Family/Other No problems noted. Social History Smoking and tobacco status: never smoked Alcohol intake: never Marital status: / Current occupational status: retired and disabled Physical Exam Const: COMMON NORMALS: no acute distress, average body habitus and patient oriented x3 HENMT: COMMON NORMALS: normocephalic HEAD & SCALP: normal to inspection and normocephalic FACE & SINUS: normal facial exam Eye: COMMON NORMALS: conjunctivae normal GENERAL EYE: appearance normal, both eyes and all related structures CONJUNCTIVA: Yes conjunctivae normal Neck/C-Spine: COMMON NORMALS: no JVD Chest: COMMONS NORMALS: normal inspection of the chest Resp: EFFORT & INSPECTION: Yes decreased respiratory effort AUSCULTATION: crackles, rales and diminished lung sounds Cardio: COMMON NORMALS: no JVD and regular rhythm RATE: tachycardic RHYTHM: regular rhythm OTHER: 1+ pedal edema on the left GI: COMMON NORMALS: Normal to inspection, nondistended, normoactive bowel sounds present Extremity: COMMON NORMALS: normal to inspection and full ROM Neuro: COMMON NORMALS: patient oriented x3 Course Vital Signs: Vital signs: Vital Signs Temperature 98.7 F 04/02/20 04:00 Pulse Rate 97 04/02/20 04:00 Respiratory Rate 18 04/02/20 04:00 Blood Pressure 117/70 04/02/20 04:00 Pulse Oximetry 95 04/02/20 04:00 MDM - SOB/Dyspnea Lab Data: Labs: Lab Results 04/01/20 04/01/20 04/01/20 Range/Units 10:16 10:16 10:16 WBC 11.3 H (4.0-10.0) 10^3/ uL RBC 4.35 (4.1-5.3) 10^6/u L Hgb 11.3 L (11.7-16.6) g/dL Hct 37.6 L (42.0-52.0) % MCV 86.4 (80-94) fL MCH 26.0 L (28.0-34.0) pg MCHC 30.1 (30.0-36.0) g/dL RDW 15.4 H (12.1-15.1) % Plt Count 200 (130-400) 10^3/c mm MPV 9.9 (7.4-10.4) fL Neut % (Auto) 74.9 % Lymph % (Auto) 12.6 % [place] % (Auto) 6.6 % Eos % (Auto) 5.0 % Baso % (Auto) 0.5 % Neut # (Auto) 8.47 H (1.8-7.7) 10^3/u L Lymph # (Auto) 1.4 (0.8-4.8) 10^3/u L [place] # (Auto) 0.8 (0.2-0.9) 10^3/u L Eos # (Auto) 0.6 (0.0-0.8) 10^3/u L Baso # (Auto) 0.1 (0.0-0.1) 10^3/u L Nucleated RBC % (a uto) 0 % Nucleated RBCs # 0.0 /100WBC PT 12.50 (12.1-14.9) SECO NDS INR 0.90 (0.8-1.2) Sodium 139 (136-145) mmol/L Potassium 4.3 (3.5-5.1) mmol/L Chloride 99 (98-107) mmol/L Carbon Dioxide 28 (22-29) mmol/L Anion Gap 16.3 (5-19) BUN 21 (8-23) mg/dL Creatinine 1.5 H (0.7-1.2) mg/dL GFR Calculation Not Reportable Glucose 124 H (65-115) mg/dL Calculated Osmolal ity 292 (285-295) mOsm/k g Lactate (0.5-2.2) mmol/L Calcium 9.9 (8.5-10.5) mg/dL Total Bilirubin 0.2 (0.15-1.2) mg/dL AST 13 (0-40) U/L ALT 9 (0-41) U/L Alkaline Phosphata se 117 (40-130) IU/L NT-Pro-B Natriuret Pep 199 (0-450) pg/mL Total Protein 6.9 (6.6-8.7) g/dL Albumin 3.7 (3.5-5.2) g/dL Globulin 3.2 (1.3-4.6) g/dL Urine Color (Yellow) Urine Appearance (CLEAR) Urine pH (5-7) Ur Specific Gravit y (1.005-1.030) Urine Protein (Negative) Urine Glucose (UA) (Normal) Urine Ketones (Negative) Urine Blood (Negative) Urine Nitrate (Negative) Urine Bilirubin (Negative) Urine Urobilinogen (Negative) mg/dL Ur Leukocyte Ladi ase (Negative) Urine RBC (0-2) /hpf Urine WBC (0-5) /hpf Ur Squamous Epith Cells (0-5) /hpf Amorphous Sediment Urine Bacteria (NONE) /hpf Urine Mucus /hpf 04/01/20 04/01/20 Range/Units 10:16 10:22 WBC (4.0-10.0) 10^3/ uL RBC (4.1-5.3) 10^6/u L Hgb (11.7-16.6) g/dL Hct (42.0-52.0) % MCV (80-94) fL MCH (28.0-34.0) pg MCHC (30.0-36.0) g/dL RDW (12.1-15.1) % Plt Count (130-400) 10^3/c mm MPV (7.4-10.4) fL Neut % (Auto) % Lymph % (Auto) % [place] % (Auto) % Eos % (Auto) % Baso % (Auto) % Neut # (Auto) (1.8-7.7) 10^3/u L Lymph # (Auto) (0.8-4.8) 10^3/u L [place] # (Auto) (0.2-0.9) 10^3/u L Eos # (Auto) (0.0-0.8) 10^3/u L Baso # (Auto) (0.0-0.1) 10^3/u L Nucleated RBC % (a uto) % Nucleated RBCs # /100WBC PT (12.1-14.9) SECO NDS INR (0.8-1.2) Sodium (136-145) mmol/L Potassium (3.5-5.1) mmol/L Chloride (98-107) mmol/L Carbon Dioxide (22-29) mmol/L Anion Gap (5-19) BUN (8-23) mg/dL Creatinine (0.7-1.2) mg/dL GFR Calculation Glucose (65-115) mg/dL Calculated Osmolal ity (285-295) mOsm/k g Lactate 0.8 (0.5-2.2) mmol/L Calcium (8.5-10.5) mg/dL Total Bilirubin (0.15-1.2) mg/dL AST (0-40) U/L ALT (0-41) U/L Alkaline Phosphata se (40-130) IU/L NT-Pro-B Natriuret Pep (0-450) pg/mL Total Protein (6.6-8.7) g/dL Albumin (3.5-5.2) g/dL Globulin (1.3-4.6) g/dL Urine Color Colorless (Yellow) Urine Appearance Clear (CLEAR) Urine pH 5 (5-7) Ur Specific Gravit y 1.005 (1.005-1.030) Urine Protein Neg (Negative) Urine Glucose (UA) Norm (Normal) Urine Ketones Negative (Negative) Urine Blood 2+ H (Negative) Urine Nitrate Positive H (Negative) Urine Bilirubin Neg (Negative) Urine Urobilinogen Neg (Negative) mg/dL Ur Leukocyte Ladi ase 1+ H (Negative) Urine RBC 5-10 H (0-2) /hpf Urine WBC 40-55 H (0-5) /hpf Ur Squamous Epith Cells 0-4 H (0-5) /hpf Amorphous Sediment Not Reportable Urine Bacteria 3+ H (NONE) /hpf Urine Mucus 1+ /hpf EKG Data^: EKG 1: EKG Interpretation Date: 04/01/20 EKG interpretation time: 10:03 Interpretation: Sinus tachycardia right axis deviation ventricular rate 107 bpm [place] interval is 178 QRS durations 93 Discharge Plan Discharge Admit Provider: Jon Johnson Discharge Date/Time: 04/01/20 14:04 Coding Level of Care Code ED 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 coli infection urine Hypertension Osteoarthritis chronic back and joint pains Surgical History No pertinent past surgical history denies any surgeries Family History Family/Other No problems noted. Social History Smoking and tobacco status: never smoked Alcohol intake: never Marital status: / Current occupational status: retired and disabled Course ED course: I am seeing this patient with Yuri Coreas NP. The patient presents with cough, weakness, urinary symptoms. He has been having severe pain with urination for a day or 2. He has chronic shortness of breath and chronic cough which do not seem to be any different today. UA shows a definite infection and with his clinical symptoms will require treatment. His renal function is good. With a creatinine 1.5. He has a slightly elevated white count 11.3. He says that he always requires IV antibiotics when he has a UTI and thinks that he needs to be admitted. I will consult the hospitalist. On my exam he is awake and alert and complaining of being uncomfortable in the bed. Vital Signs: Vital signs: Vital Signs Temperature 98.7 F 04/02/20 04:00 Pulse Rate 97 04/02/20 04:00 Respiratory Rate 18 04/02/20 04:00 Blood Pressure 117/70 04/02/20 04:00 Pulse Oximetry 95 04/02/20 04:00 MDM - SOB/Dyspnea Lab Data: Labs: Lab Results 04/01/20 04/01/20 04/01/20 Range/Units 10:16 10:16 10:16 WBC 11.3 H (4.0-10.0) 10^3/ uL RBC 4.35 (4.1-5.3) 10^6/u L Hgb 11.3 L (11.7-16.6) g/dL Hct 37.6 L (42.0-52.0) % MCV 86.4 (80-94) fL MCH 26.0 L (28.0-34.0) pg MCHC 30.1 (30.0-36.0) g/dL RDW 15.4 H (12.1-15.1) % Plt Count 200 (130-400) 10^3/c mm MPV 9.9 (7.4-10.4) fL Neut % (Auto) 74.9 % Lymph % (Auto) 12.6 % [place] % (Auto) 6.6 % Eos % (Auto) 5.0 % Baso % (Auto) 0.5 % Neut # (Auto) 8.47 H (1.8-7.7) 10^3/u L Lymph # (Auto) 1.4 (0.8-4.8) 10^3/u L [place] # (Auto) 0.8 (0.2-0.9) 10^3/u L Eos # (Auto) 0.6 (0.0-0.8) 10^3/u L Baso # (Auto) 0.1 (0.0-0.1) 10^3/u L Nucleated RBC % (a uto) 0 % Nucleated RBCs # 0.0 /100WBC PT 12.50 (12.1-14.9) SECO NDS INR 0.90 (0.8-1.2) Sodium 139 (136-145) mmol/L Potassium 4.3 (3.5-5.1) mmol/L Chloride 99 (98-107) mmol/L Carbon Dioxide 28 (22-29) mmol/L Anion Gap 16.3 (5-19) BUN 21 (8-23) mg/dL Creatinine 1.5 H (0.7-1.2) mg/dL GFR Calculation Not Reportable Glucose 124 H (65-115) mg/dL Calculated Osmolal ity 292 (285-295) mOsm/k g Lactate (0.5-2.2) mmol/L Calcium 9.9 (8.5-10.5) mg/dL Total Bilirubin 0.2 (0.15-1.2) mg/dL AST 13 (0-40) U/L ALT 9 (0-41) U/L Alkaline Phosphata se 117 (40-130) IU/L NT-Pro-B Natriuret Pep 199 (0-450) pg/mL Total Protein 6.9 (6.6-8.7) g/dL Albumin 3.7 (3.5-5.2) g/dL Globulin 3.2 (1.3-4.6) g/dL Urine Color (Yellow) Urine Appearance (CLEAR) Urine pH (5-7) Ur Specific Gravit y (1.005-1.030) Urine Protein (Negative) Urine Glucose (UA) (Normal) Urine Ketones (Negative) Urine Blood (Negative) Urine Nitrate (Negative) Urine Bilirubin (Negative) Urine Urobilinogen (Negative) mg/dL Ur Leukocyte Ladi ase (Negative) Urine RBC (0-2) /hpf Urine WBC (0-5) /hpf Ur Squamous Epith Cells (0-5) /hpf Amorphous Sediment Urine Bacteria (NONE) /hpf Urine Mucus /hpf 04/01/20 04/01/20 Range/Units 10:16 10:22 WBC (4.0-10.0) 10^3/ uL RBC (4.1-5.3) 10^6/u L Hgb (11.7-16.6) g/dL Hct (42.0-52.0) % MCV (80-94) fL MCH (28.0-34.0) pg MCHC (30.0-36.0) g/dL RDW (12.1-15.1) % Plt Count (130-400) 10^3/c mm MPV (7.4-10.4) fL Neut % (Auto) % Lymph % (Auto) % [place] % (Auto) % Eos % (Auto) % Baso % (Auto) % Neut # (Auto) (1.8-7.7) 10^3/u L Lymph # (Auto) (0.8-4.8) 10^3/u L [place] # (Auto) (0.2-0.9) 10^3/u L Eos # (Auto) (0.0-0.8) 10^3/u L Baso # (Auto) (0.0-0.1) 10^3/u L Nucleated RBC % (a uto) % Nucleated RBCs # /100WBC PT (12.1-14.9) SECO NDS INR (0.8-1.2) Sodium (136-145) mmol/L Potassium (3.5-5.1) mmol/L Chloride (98-107) mmol/L Carbon Dioxide (22-29) mmol/L Anion Gap (5-19) BUN (8-23) mg/dL Creatinine (0.7-1.2) mg/dL GFR Calculation Glucose (65-115) mg/dL Calculated Osmolal ity (285-295) mOsm/k g Lactate 0.8 (0.5-2.2) mmol/L Calcium (8.5-10.5) mg/dL Total Bilirubin (0.15-1.2) mg/dL AST (0-40) U/L ALT (0-41) U/L Alkaline Phosphata se (40-130) IU/L NT-Pro-B Natriuret Pep (0-450) pg/mL Total Protein (6.6-8.7) g/dL Albumin (3.5-5.2) g/dL Globulin (1.3-4.6) g/dL Urine Color Colorless (Yellow) Urine Appearance Clear (CLEAR) Urine pH 5 (5-7) Ur Specific Gravit y 1.005 (1.005-1.030) Urine Protein Neg (Negative) Urine Glucose (UA) Norm (Normal) Urine Ketones Negative (Negative) Urine Blood 2+ H (Negative) Urine Nitrate Positive H (Negative) Urine Bilirubin Neg (Negative) Urine Urobilinogen Neg (Negative) mg/dL Ur Leukocyte Ladi ase 1+ H (Negative) Urine RBC 5-10 H (0-2) /hpf Urine WBC 40-55 H (0-5) /hpf Ur Squamous Epith Cells 0-4 H (0-5) /hpf Amorphous Sediment Not Reportable Urine Bacteria 3+ H (NONE) /hpf Urine Mucus 1+ /hpf Discharge Plan Discharge Admit Provider: Jon Johnson Discharge Date/Time: 04/01/20 14:04 Coding Level of Care Code ED Electrical Appliance Servicer for g Fwd Exam Comprehensive
[2020-04-01] MEDS: sodium chloride 0.9% 500 ML IV (10:38)
[2020-04-01 10:41] LABS: Lactate (Lactic Acid level) 0.8 mmol/L (0.5-2.2)
[2020-04-01] MEDS: HYDROcodone-acetaminophen 5-325 mg Tablet 1 TAB PO ×2 (10:45→20:22)
[2020-04-01 10:47] LABS: Add Urine Microscopic? YES; Bilirubin Urine Neg (Negative); Blood Urine 2+ (Negative); Glucose Urine UA Norm (Normal); Ketones Urine Negative (Negative); Leukocyte Esterase Urine 1+ (Negative); Nitrate Urine Positive (Negative); Protein Urine Neg (Negative); Specific Gravity, Urine 1.005 (1.005-1.030); Urine Appearance Clear (CLEAR); Urine Color Colorless (Yellow); Urobilinogen Urine Neg (Negative); pH Urine 5 (5-7)
[2020-04-01 10:51] LABS: WBC Urine 40-55 /hpf (0-5)
[2020-04-01 10:52] LABS: Add Urine Culture? Yes; Bacteria Urine 3+ /hpf; Mucus Urine 1+ /hpf; Squamous Epithelial Cell Urine 0-4 /hpf (0-5)
[2020-04-01 10:52] LABS: Alanine Aminotransferase 9 U/L (0-41); Albumin Level 3.7 g/dL (3.5-5.2); Alkaline Phosphatase 117 IU/L (40-130); Anion Gap 16.3 (5-19); Aspartate Amino Transferase 13 U/L (0-40); Blood Urea Nitrogen 21 mg/dL (8-23); Calcium 9.9 mg/dL (8.5-10.5); Carbon Dioxide 28 mmol/L (22-29); Chloride 99 mmol/L (98-107); Globulin 3.2 g/dL (1.3-4.6); Glucose 124 mg/dL (65-115); NT Pro B Type Natriuretic Pept 199 pg/mL (0-450); Osmolality Calculated 292 mOsm/kg (285-295); Potassium 4.3 mmol/L (3.5-5.1); Sodium 139 mmol/L (136-145); Total Bilirubin 0.2 mg/dL (0.15-1.2); Total Protein 6.9 g/dL (6.6-8.7)
[2020-04-01] MEDS: cefTRIAXone 1,000 MG in sodium chloride 0.9% (plus) 50 ML 100 MG IV (12:23)
[2020-04-01] MEDS: piperacillin-tazobactam 3.375 GM in sodium chloride 0.9% (plus) 50 ML IV (12:52)
--- NOTE | 2020-04-01 18:45 | ECG_ITS ---
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 Measurements Intervals [place] Rate: 93 P: 60 [place]: 166 QRS: 112 QRSD: 106 T: -9 QT: 339 QTc: 422 Interpretive Statements SINUS RHYTHM POSSIBLE RIGHT VENTRICULAR HYPERTROPHY ABNORMAL QRS-T ANGLE [QRS-T AXIS DIFFERENCE > 60] WARNING: DATA QUALITY MAY AFFECT INTERPRETATION Compared to ECG 04/01/2020 10:03:35 Sinus tachycardia no longer present Right-axis deviation no longer present Myocardial infarct finding no longer present Electronically Signed On 04-03-2020 17:13:50 CDT by Bhavya Jimenes M.D. [id number]
--- NOTE | 2020-04-01 18:52 | PM.HP ---
Providers/Chief Complaint Admitting Physician: Jon Johnson Primary Care Provider: Erik Adkins DO Chief Complaint: SOB/COUGH History of Present Illness Vladimir Farnsworth is a 80 year old male with past medical history of CAD, indwelling Drake, frequent UTIs, oxygen dependent COPD, CHF, hypertension, chronic pain syndrome who is presenting to emergency room with complaints of worsening shortness of breath. He states that his breathing has worsened recently. He reports productive cough with clear mucus. He insists that his COPD has gotten worse. He reports wheezing. Denies fevers or chills. Denies dysuria. Reports chronic pain. All over the body . This also includes chest pain which is chronic. Denies any new type of pain. He also reports abdominal and back pain which is chronic without any recent changes. No changes in the urine. Last time he was admitted he had urine positive for ESBL E. coli. Review of systems otherwise is negative. Review of Systems General: Reports: 10 or more systems reviewed and unremarkable except in HPI and below Medications/Allergies Home Medications Medication Instructions Recorded Confirmed Last Taken Type hydrocodone-acetaminophen 1 tab PO Q6H PRN 11/03/19 04/01/20 03/31/20 History ipratropium-albuterol 2.5 ml INHALATION Q4H PRN 11/03/19 04/01/20 04/01/20 History metoprolol tartrate 12.5 mg PO BID #0 11/03/19 04/01/20 03/31/20 History tamsulosin 0.4 mg PO DAILY #30 cap 11/08/19 04/01/20 03/31/20 Rx alprazolam [Xanax] 0.5 - 1 mg PO Q4H PRN 01/25/20 04/01/20 03/31/20 History aspirin [Aspir-81] 81 mg PO DAILY 02/21/20 04/01/20 03/31/20 History furosemide [Lasix] 40 mg PO DAILY 02/21/20 04/01/20 03/31/20 History oxybutynin chloride 5 mg PO TID PRN 02/21/20 04/01/20 03/31/20 History sertraline 25 mg PO DAILY 02/21/20 04/01/20 03/31/20 History ondansetron HCl 4 mg PO Q6H PRN 04/01/20 04/01/20 03/31/20 History Allergies Allergy/AdvReac Type Severity Reaction Status Date / Time No Known Allergies Allergy Verified 02/22/20 16:42 PFSH Acute PFSH: Medical History Aortic stenosis, mild BPH with urinary obstruction CHF (congestive heart failure) Chronic kidney disease, stage 3 COPD (chronic obstructive pulmonary disease) COPD (chronic obstructive pulmonary disease) Diabetes mellitus, type II History of ESBL E. coli infection urine Hypertension Osteoarthritis chronic back and joint pains Surgical History No pertinent past surgical history denies any surgeries Family History Family/Other No problems noted. Social History Smoking and tobacco status: never smoked Alcohol intake: never Marital status: / Current occupational status: retired and disabled Vitals/I&O/Wt Last Vital Signs Temp 98.0 F 04/01/20 16:00 Pulse 101 H 04/01/20 16:00 Resp 18 04/01/20 16:00 BP 143/80 04/01/20 16:00 Pulse Ox 93 04/01/20 16:00 Weight last 48 hrs Weight 97.522 kg Physical Exam Narrative: EXAM NARRATIVE: The patient is awake alert oriented. No acute distress. Mood and affect are appropriate. Responses are adequate. Skin is warm and dry. Moist mucous membranes. Neck is supple. No JVD Lungs clear bilaterally. No significant wheezes or crackles. No respiratory distress. Heart S1, S2, regular Abdomen soft, nontender, bowel sounds are present Extremities bilateral pedal edema is present. No cyanosis no calf tenderness bilaterally Neurologic examination is nonfocal Normal speech. Data : 04/01/20 10:16 04/01/20 10:16 A&P Additional A&P Information 80 year old male with past medical history of CAD, indwelling Drake, frequent UTIs, oxygen dependent COPD, CHF, hypertension, chronic pain syndrome who is presenting to emergency room with complaints of worsening shortness of breath. Shortness of breath. Most likely related to COPD acute exacerbation. Mild. No significant hypoxia. He uses oxygen at home. We will start him on IV steroids, respiratory treatments, p.o. doxycycline. I expect that his breathing will improve with this treatment. The patient is found to have urinary tract infection. However I suspect this is chronic colonization. I think it would be reasonable to leave it alone for now unless he becomes symptomatic or develops any signs of sepsis. Chest pain. The chest pain is reported as chronic. He has some ischemic changes on EKG. Inferior leads. I will order serial troponins. We will continue his home medications. Chronic pain syndrome. We will continue his home medications. Will order also PRN morphine for breakthrough pain. Chronic kidney disease. His creatinine is at baseline. We will continue monitoring. Will avoid nephrotoxic medications. Hypertension. I will order PRN hydralazine. The patient wants to be full code. DVT prophylaxis. Heparin. Anemia. Will monitor. It is at his baseline. The plan of care was discussed with the patient. He verbalized understanding and agreement Attestations Medical Necessity Statement*: I expect that the patient will require more than 2 midnights to complete work-up and help him with his acute and chronic problems. Coding Level of Care Code Acute Assistance Specialist for Andriy Dhillon
[2020-04-01 19:45] LABS: Troponin(5th) Baseline 91 ng/L (0-15)
[2020-04-01] MEDS: heparin 5,000 unit/mL INJ 1 mL 5000 UNIT SUBCUT (20:22)
[2020-04-01] MEDS: ALPRAZolam 0.5 mg Tablet PO (20:22)
--- NOTE | 2020-04-01 20:45 | ECG_ITS ---
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 Measurements Intervals [place] Rate: 100 P: 64 CO: 177 QRS: 119 QRSD: 100 T: -11 QT: 333 QTc: 431 Interpretive Statements SINUS TACHYCARDIA INCOMPLETE RIGHT BUNDLE BRANCH BLOCK POSSIBLE RIGHT VENTRICULAR HYPERTROPHY PROBABLE INFERIOR MYOCARDIAL INFARCTION, OF INDETERMINATE AGE Compared to ECG 04/01/2020 20:05:31 Incomplete right bundle-branch block now present Myocardial infarct finding now present Sinus rhythm no longer present Electronically Signed On 04-02-2020 13:59:12 CDT by Bhavya Jimenes M.D. [id number]
[2020-04-01 21:05] LABS: Glucose Point of Care 109 mg/dL (70-110)
[2020-04-01] MEDS: ipratropium-albuterol 3 mL Neb INHALATION (21:48)
[2020-04-01 22:22] LABS: Troponin 5 2HR 89.65 ng/L (0-15)
[2020-04-01 22:30] LABS: Troponin 5 2HR Delta -1.35 ABS# (0-10)
[2020-04-02] VITALS (13 sets, daily range): BP systolic 109–142; BP diastolic 61–80; PULSE 80–109; RESP 17–20; TEMP 36.3–37.1; O2SAT 93–99
--- NOTE | 2020-04-02 00:45 | ECG_ITS ---
[facility] Test Date: 2020-04-02 Pat Name: Vladimir Farnsworth Department: Room: 254 Gender: Male Skein Tier: : 1940 Requested By: Jon Archer Order Number: [id number] Maddie MD: Bhavya Jimenes M.D. Measurements Intervals [place] Rate: 99 P: 64 PA: 177 QRS: 117 QRSD: 108 T: 0 QT: 349 QTc: 450 Interpretive Statements SINUS RHYTHM WITH OCCASIONAL SUPRAVENTRICULAR PREMATURE COMPLEXES INCOMPLETE RIGHT BUNDLE BRANCH BLOCK [90+ ms QRS DURATION, TERMINAL R IN V1/V2, 40+ ms S IN I/aVL/V4/V5/V6] RIGHT VENTRICULAR HYPERTROPHY Compared to ECG 04/02/2020 00:20:51 Sinus tachycardia no longer present Myocardial infarct finding no longer present Electronically Signed On 04-03-2020 20:38:59 CDT by Bhavya Jimenes M.D. [id number]
[2020-04-02 01:22] LABS: Anion Gap 16.6 (5-19); Blood Urea Nitrogen 22 mg/dL (8-23); Calcium 9.8 mg/dL (8.5-10.5); Carbon Dioxide 29 mmol/L (22-29); Chloride 99 mmol/L (98-107); Glucose 160 mg/dL (65-115); Magnesium 1.5 mg/dL (1.7-2.3); Osmolality Calculated 297 mOsm/kg (285-295); Potassium 4.6 mmol/L (3.5-5.1); Sodium 140 mmol/L (136-145)
[2020-04-02 01:25] LABS: Troponin 5 6HR 85.34 ng/L (0-15)
[2020-04-02 01:34] LABS: Procalcitonin 0.14 ng/mL (0-0.5)
[2020-04-02] MEDS: ipratropium-albuterol 3 mL Neb INHALATION ×3 (02:32→21:08)
[2020-04-02] MEDS: heparin 5,000 unit/mL INJ 1 mL 5000 UNIT SUBCUT ×3 (03:10→19:09)
[2020-04-02] MEDS: HYDROcodone-acetaminophen 5-325 mg Tablet 1 TAB PO ×4 (03:11→23:20)
[2020-04-02 06:50] LABS: Glucose Point of Care 156 mg/dL (70-110)
[2020-04-02] MEDS: FUROsemide 20 mg Tablet 40 MG PO (08:56)
[2020-04-02] MEDS: aspirin 81 mg EC Tablet PO (08:56)
[2020-04-02] MEDS: doxycycline 100 mg Tablet PO ×2 (08:56→19:08)
[2020-04-02] MEDS: metoprolol tartrate 25 mg Tablet 12.5 MG PO ×2 (08:56→19:09)
[2020-04-02] MEDS: sertraline 50 mg Tablet 25 MG PO (08:57)
[2020-04-02] MEDS: tamsulosin 0.4 mg Capsule PO (08:57)
[2020-04-02] MEDS: ALPRAZolam 0.5 mg Tablet PO ×2 (08:58→19:09)
[2020-04-02 11:00] LABS: Glucose Point of Care 225 mg/dL (70-110)
--- NOTE | 2020-04-02 13:12 | P.PN_ITS ---
Subjective Subjective: Interval history: patient reports feeling better. Reports improved shortness of breath. Denies chest pain. His chronic pain all over the body is well-controlled currently. Denies nausea or vomiting. There denies fevers or chills. Denies diarrhea. Medications: Reviewed: Yes Medication Review Details: Generic Name Dose Route Start Last Admin Trade Name Freq PRN Reason Stop Dose Admin Hydrocodone Bitart /Acetaminophen 1 tab 04/01/20 18:43 04/02/20 08:57 [place] 5-325 Mg PO 1 tab Q6H PRN Administration Pain Albuterol/Ipratrop ium 3 ml 04/01/20 18:46 04/02/20 09:01 Duoneb INHALATION 3 ml Q4H PRN Administration SHORTNESS OF YI TH Alprazolam 0.5 mg 04/01/20 18:43 04/02/20 08:58 Xanax PO 0.5 mg Q4H PRN Administration Anxiety Aspirin 81 mg 04/02/20 09:00 04/02/20 08:56 Aspirin Ec PO 81 mg DAILY APURVA Administration Doxycycline Monohy drate 100 mg 04/02/20 09:00 04/02/20 08:56 Vibramycin PO 100 mg BID APURVA Administration Protocol Furosemide 40 mg 04/02/20 09:00 04/02/20 08:56 Lasix PO 40 mg DAILY APURVA Administration Heparin Sodium (Be ef Lung) 5,000 unit 04/01/20 19:00 04/02/20 08:58 Heparin SUBCUT 5,000 unit Q8H APURVA Administration Insulin Aspart 0 unit 04/01/20 21:00 04/02/20 11:30 Novolog SUBCUT 6 unit WM&BEDTIME APURVA Administration Protocol Metoprolol Tartrat e 12.5 mg 04/02/20 09:00 04/02/20 08:56 Lopressor PO 12.5 mg BID APURVA Administration Sertraline HCl 25 mg 04/02/20 09:00 04/02/20 08:57 Zoloft PO 25 mg DAILY APURVA Administration Tamsulosin HCl 0.4 mg 04/02/20 09:00 04/02/20 08:57 Flomax PO 0.4 mg DAILY APURVA Administration Vitals/I&O/Wt Last Vital Signs Temp 98.3 F 04/02/20 11:32 Pulse 80 04/02/20 11:32 Resp 18 04/02/20 11:32 BP 109/70 04/02/20 11:32 Pulse Ox 99 04/02/20 11:32 04/01/20 04/02/20 04/02/20 22:59 06:59 14:59 Intake Total 480 / 480 Output Total 1800 / 1800 Balance -1800 / -1800 480 / 480 Weight last 48 hrs Weight 97.522 kg Physical Exam Narrative: EXAM NARRATIVE: The patient is awake alert oriented. No acute distress. Mood and affect are appropriate. Responses are adequate. Skin is warm and dry. Moist mucous membranes. Neck is supple. No JVD Lungs clear bilaterally. mild bilateral diffuse wheezes. No respiratory distress. Heart S1, S2, regular Abdomen soft, nontender, bowel sounds are present Extremities bilateral pedal edema is present. No cyanosis no calf tenderness bilaterally Neurologic examination is nonfocal Normal speech. Urinary Catheter Management^: Drake: Cath Placed During This Visit: no Reason for Continuing Indwelling Catheter: Chronic Indwelling Urinary Catheter on Admission Data : 04/01/20 10:16 04/02/20 00:35 Micro: Microbiology 04/01/20 10:22 Urine Culture - Preliminary Urine,Clean Catch Gram Negative Rods A&P Assessment and plan (1) Acute exacerbation of chronic obstructive airways disease: Status: Acute Additional A&P Information 80 year old male with past medical history of CAD, indwelling Drake, frequent UTIs, oxygen dependent COPD, CHF, hypertension, chronic pain syndrome who is presenting to emergency room with complaints of worsening shortness of breath. Shortness of breath. Most likely related to COPD acute exacerbation. improved since yesterday. Wall start the escalating IV steroids. I expect that he needs another day of IV steroids in order to consider him for discharge. No significant hypoxia. He uses oxygen at home. continuing respiratory treatments, p.o. doxycycline. The patient is found to have urinary tract infection. However I suspect this is chronic colonization. I think it would be reasonable to leave it alone for now unless he becomes symptomatic or develops any signs of sepsis. Chest pain. The chest pain is reported as chronic. He has some ischemic changes on EKGwhich are currently resolved. Inferior leads. troponin was elevated most likely due to demand ischemia. I reviewed the findings with our on-call commissioner public works Dr. Roth. He agreed with this. He doesn't recommend additional testing or formal cardiac evaluation. We will continue his home medications. Chronic pain syndrome. We will continue his home medications. Will order also PRN morphine for breakthrough pain. Chronic kidney disease. His creatinine is at baseline. We will continue monitoring. Will avoid nephrotoxic medications. Hypertension. I will order PRN hydralazine. full code. DVT prophylaxis. Heparin. Anemia. Will monitor. It is at his baseline. The plan of care was discussed with the patient. He verbalized understanding and agreement. the case was also discussed during multidisciplinary rounds. Attestations Medical Necessity Statement*: I'm hoping that they will be able to discharge him tomorrow. At this point he still requires IV steroids. Coding Level of Care Code Acute Senior Cobol Developer for Andriy Dhillon Diagnoses Acute exacerbation of chronic obstructive airways disease J44.1
--- NOTE | 2020-04-02 16:49 | PC.RESP ---
Pulmonary Rehab information sent to patient.
[2020-04-02 17:54] LABS: Glucose Point of Care 157 mg/dL (70-110)
[2020-04-02] MEDS: oxybutynin 5 mg Tablet PO (19:12)
[2020-04-02 20:38] LABS: Quest SARS-CoV-2 RNA NOT DETECTED (NOT DETECTED)
[2020-04-02 21:09] LABS: Glucose Point of Care 243 mg/dL (70-110)
[2020-04-03] VITALS (11 sets, daily range): BP systolic 116–162; BP diastolic 62–94; PULSE 76–94; RESP 16–20; TEMP 36.6–36.9; O2SAT 93–98
[2020-04-03] MEDS: heparin 5,000 unit/mL INJ 1 mL 5000 UNIT SUBCUT ×3 (03:52→17:54)
[2020-04-03 05:37] LABS: Basophils % 0.1 %; Eosinophils % 0.1 %; Hematocrit 36.1 % (42.0-52.0); Hemoglobin 11.2 g/dL (11.7-16.6); Lymphocytes % 8.6 %; Monocytes # 0.5 10^3/uL (0.2-0.9); Neutrophils # 10.19 10^3/uL (1.8-7.7); Neutrophils % 86.5 %; Nucleated Red Blood Cells % 0 %; Platelet Count 234 10^3/cmm (130-400); Red Cell Distribution Width 15.3 % (12.1-15.1); White Blood Count 11.8 10^3/uL (4.0-10.0)
[2020-04-03 06:03] LABS: Magnesium 1.5 mg/dL (1.7-2.3)
[2020-04-03 06:07] LABS: Albumin Level 3.7 g/dL (3.5-5.2); Anion Gap 16.9 (5-19); Blood Urea Nitrogen 40 mg/dL (8-23); Calcium 9.6 mg/dL (8.5-10.5); Carbon Dioxide 28 mmol/L (22-29); Chloride 96 mmol/L (98-107); Glucose 151 mg/dL (65-115); Phosphorus 3.3 mg/dL (2.5-4.5); Potassium 4.9 mmol/L (3.5-5.1); Sodium 136 mmol/L (136-145)
[2020-04-03 07:39] LABS: Glucose Point of Care 165 mg/dL (70-110)
[2020-04-03] MEDS: ipratropium-albuterol 3 mL Neb INHALATION ×3 (08:52→20:52)
[2020-04-03] MEDS: aspirin 81 mg EC Tablet PO (08:54)
[2020-04-03] MEDS: doxycycline 100 mg Tablet PO (08:54)
[2020-04-03] MEDS: FUROsemide 20 mg Tablet 40 MG PO (08:54)
[2020-04-03] MEDS: metoprolol tartrate 25 mg Tablet 12.5 MG PO ×2 (08:54→17:54)
[2020-04-03] MEDS: sertraline 50 mg Tablet 25 MG PO (08:54)
[2020-04-03] MEDS: tamsulosin 0.4 mg Capsule PO (08:54)
[2020-04-03] MEDS: oxybutynin 5 mg Tablet PO (08:55)
[2020-04-03] MEDS: HYDROcodone-acetaminophen 5-325 mg Tablet 1 TAB PO ×2 (08:55→17:54)
[2020-04-03] MEDS: ALPRAZolam 0.5 mg Tablet PO ×2 (08:56→17:54)
[2020-04-03 10:56] LABS: Glucose Point of Care 208 mg/dL (70-110)
--- NOTE | 2020-04-03 11:22 | P.PN_ITS ---
Subjective Subjective: Interval history: Doing well. No active complaints. Patient reports feeling better. Reports improved shortness of breath. Denies chest pain. His chronic pain all over the body is well-controlled currently. Denies nausea or vomiting. There denies fevers or chills. Denies diarrhea. Medications: Reviewed: Yes Medication Review Details: Generic Name Dose Route Start Last Admin Trade Name Freq PRN Reason Stop Dose Admin Hydrocodone Bitart /Acetaminophen 1 tab 04/01/20 18:43 04/03/20 08:55 [place] 5-325 Mg PO 1 tab Q6H PRN Administration Pain Albuterol/Ipratrop ium 3 ml 04/01/20 18:46 04/03/20 08:52 Duoneb INHALATION 3 ml Q4H PRN Administration SHORTNESS OF YI TH Alprazolam 0.5 mg 04/01/20 18:43 04/03/20 08:56 Xanax PO 0.5 mg Q4H PRN Administration Anxiety Aspirin 81 mg 04/02/20 09:00 04/03/20 08:54 Aspirin Ec PO 81 mg DAILY APURVA Administration Doxycycline Monohy drate 100 mg 04/02/20 09:00 04/03/20 08:54 Vibramycin PO 100 mg BID APURVA Administration Protocol Furosemide 40 mg 04/02/20 09:00 04/03/20 08:54 Lasix PO 40 mg DAILY APURVA Administration Heparin Sodium (Be ef Lung) 5,000 unit 04/01/20 19:00 04/03/20 08:55 Heparin SUBCUT 5,000 unit Q8H APURVA Administration Insulin Aspart 0 unit 04/01/20 21:00 04/03/20 08:53 Novolog SUBCUT 2 unit WM&BEDTIME APURVA Administration Protocol Methylprednisolone Sodium Succinate 40 mg 04/03/20 09:00 04/03/20 09:11 Solu-Medrol IVP 40 mg DAILY APURVA Administration Metoprolol Tartrat e 12.5 mg 04/02/20 09:00 04/03/20 08:54 Lopressor PO 12.5 mg BID APURVA Administration Oxybutynin Chlorid e 5 mg 04/01/20 18:43 04/03/20 08:55 Ditropan PO 5 mg TID PRN Administration Bladder Spasms Sertraline HCl 25 mg 04/02/20 09:00 04/03/20 08:54 Zoloft PO 25 mg DAILY APURVA Administration Tamsulosin HCl 0.4 mg 04/02/20 09:00 04/03/20 08:54 Flomax PO 0.4 mg DAILY APURVA Administration Vitals/I&O/Wt Last Vital Signs Temp 97.9 F 04/03/20 07:24 Pulse 90 04/03/20 08:59 Resp 16 04/03/20 08:53 BP 116/62 04/03/20 07:24 Pulse Ox 95 04/03/20 08:53 04/02/20 04/03/20 04/03/20 22:59 06:59 14:59 Intake Total 480 / 1440 240 / 240 Output Total 1300 / 1300 Balance 480 / 1440 -1300 / 140 240 / 240 Physical Exam Narrative: EXAM NARRATIVE: The patient is awake alert oriented. No acute distress. Mood and affect are appropriate. Responses are adequate. Skin is warm and dry. Moist mucous membranes. Neck is supple. No JVD Lungs clear bilaterally. mild bilateral diffuse wheezes. No respiratory distress. Heart S1, S2, regular Abdomen soft, nontender, bowel sounds are present Extremities bilateral pedal edema is present. No cyanosis no calf tenderness bilaterally Neurologic examination is nonfocal Normal speech. Urinary Catheter Management^: Drake: Cath Placed During This Visit: no Reason for Continuing Indwelling Catheter: Chronic Indwelling Urinary Catheter on Admission Data : 04/03/20 04:50 04/03/20 04:50 Micro: Microbiology 04/01/20 10:22 Urine Culture - Final Urine,Clean Catch Escherichia coli esbl A&P Assessment and plan (1) Acute exacerbation of chronic obstructive airways disease: Status: Acute Additional A&P Information 80 year old male with past medical history of CAD, indwelling Drake, frequent UT Is, oxygen dependent COPD, CHF, hypertension, chronic pain syndrome who is presenting to emergency room with complaints of worsening shortness of breath. Shortness of breath. Most likely related to COPD acute exacerbation. improved since yesterday. Wall start the escalating IV steroids. I expect that he needs another day of IV steroids in order to consider him for discharge. No significant hypoxia. He uses oxygen at home. continuing respiratory treatments, p.o. doxycycline. He feels that probably tomorrow he will be ready to go home. The patient is found to have urinary tract infection. However I suspect this is chronic colonization. I think it would be reasonable to leave it alone for now unless he becomes symptomatic or develops any signs of sepsis. Chest pain. The chest pain is reported as chronic. He has some ischemic changes on EKGwhich are currently resolved. Inferior leads. troponin was elevated most likely due to demand ischemia. I reviewed the findings with our on-call import export manager Dr. Roth. He agreed with this. He doesn't recommend additional testing or formal cardiac evaluation. We will continue his home medications. Chronic pain syndrome. We will continue his home medications. Will order also PRN morphine for breakthrough pain. Chronic kidney disease. His creatinine is at baseline. We will continue monitoring. Will avoid nephrotoxic medications. Hypertension. I will order PRN hydralazine. full code. DVT prophylaxis. Heparin. Anemia. Will monitor. It is at his baseline. The plan of care was discussed with the patient. He verbalized understanding and agreement. the case was also discussed during multidisciplinary rounds. Attestations Medical Necessity Statement*: Probably home tomorrow. Coding Level of Care Code Acute Rn Paralegal for Andriy Dhillon Diagnoses Acute exacerbation of chronic obstructive airways disease J44.1
[2020-04-03] MEDS: ondansetron 2 mg/ML SDV 2 mL 4 MG IVP (14:07)
[2020-04-03] MEDS: morphine 4 mg/mL SDV 1 mL 2 MG IVP (14:07)
[2020-04-03 18:38] LABS: Glucose Point of Care 144 mg/dL (70-110)
[2020-04-03 21:09] LABS: Glucose Point of Care 208 mg/dL (70-110)
[2020-04-04] VITALS (10 sets, daily range): BP systolic 105–149; BP diastolic 60–80; PULSE 73–108; RESP 18–22; TEMP 36.4–36.9; O2SAT 94–100
--- NOTE | 2020-04-04 00:07 | PC.NURSE ---
Patient stated my kidney hurts. Pain level 6 on numeric scale 0 - 10. Patient's nurse Chepe been notified.
[2020-04-04] MEDS: HYDROcodone-acetaminophen 5-325 mg Tablet 1 TAB PO ×3 (00:20→18:49)
[2020-04-04] MEDS: heparin 5,000 unit/mL INJ 1 mL 5000 UNIT SUBCUT ×3 (04:22→18:49)
[2020-04-04 08:16] LABS: Glucose Point of Care 107 mg/dL (70-110)
[2020-04-04] MEDS: FUROsemide 20 mg Tablet 40 MG PO (09:09)
[2020-04-04] MEDS: tamsulosin 0.4 mg Capsule PO (09:09)
[2020-04-04] MEDS: sertraline 50 mg Tablet 25 MG PO (09:09)
[2020-04-04] MEDS: aspirin 81 mg EC Tablet PO (09:10)
[2020-04-04] MEDS: metoprolol tartrate 25 mg Tablet 12.5 MG PO ×2 (09:10→18:49)
[2020-04-04] MEDS: ipratropium-albuterol 3 mL Neb INHALATION ×2 (09:56→14:13)
--- NOTE | 2020-04-04 10:00 | PC.SOCIAL ---
IMM Updated Page 2 of IMM updated and given to patient. Initialed, dated, and timed and placed back in chart.
[2020-04-04 10:39] LABS: Glucose Point of Care 137 mg/dL (70-110)
--- NOTE | 2020-04-04 12:18 | PM.PN ---
Subjective Subjective: Interval history: No significant changes or events. Doing better, but feels not ready for discharge yet. He feels that if discharged today he will probably need to come back again. Denies chest pain. His chronic pain all over the body is well-controlled currently. Denies nausea or vomiting. There denies fevers or chills. Denies diarrhea. Vitals/I&O/Wt Last Vital Signs Temp 98.0 F 04/04/20 11:24 Pulse 73 04/04/20 11:24 Resp 20 H 04/04/20 11:24 BP 149/80 04/04/20 11:24 Pulse Ox 95 04/04/20 11:24 04/03/20 04/04/20 04/04/20 22:59 06:59 14:59 Intake Total 360 / 800 360 / 360 Output Total 1700 / 1700 1000 / 2700 750 / 750 Balance -1340 / -900 -1000 / -1900 -390 / -390 Physical Exam Narrative: EXAM NARRATIVE: The patient is awake alert oriented. No acute distress. Mood and affect are appropriate. Responses are adequate. Skin is warm and dry. Moist mucous membranes. Neck is supple. No JVD Lungs clear bilaterally. mild bilateral diffuse wheezes. No respiratory distress. Heart S1, S2, regular Abdomen soft, nontender, bowel sounds are present Extremities bilateral pedal edema is present. No cyanosis no calf tenderness bilaterally Neurologic examination is nonfocal Normal speech. Urinary Catheter Management^: Drake: Cath Placed During This Visit: no Reason for Continuing Indwelling Catheter: Chronic Indwelling Urinary Catheter on Admission Data : 04/03/20 04:50 04/03/20 04:50 Micro: Microbiology 04/01/20 10:22 Urine Culture - Final Urine,Clean Catch Escherichia coli esbl A&P Assessment and plan (1) Acute exacerbation of chronic obstructive airways disease: Status: Acute Additional A&P Information 80 year old male with past medical history of CAD, indwelling Drake, frequent UTIs, oxygen dependent COPD, CHF, hypertension, chronic pain syndrome who is presenting to emergency room with complaints of worsening shortness of breath. Shortness of breath. Most likely related to COPD acute exacerbation. Continues improving. We will switch him to p.o. steroids and hopefully will be able to discharge him tomorrow. The patient is found to have urinary tract infection. However I suspect this is chronic colonization. I think it would be reasonable to leave it alone for now unless he becomes symptomatic or develops any signs of sepsis. Chest pain. The chest pain is reported as chronic. He has some ischemic changes on EKGwhich are currently resolved. Inferior leads. troponin was elevated most likely due to demand ischemia. I reviewed the findings with our on-call end user consultant Dr. Roth. He agreed with this. He doesn't recommend additional testing or formal cardiac evaluation. We will continue his home medications. Chronic pain syndrome. We will continue his home medications. Will order also PRN morphine for breakthrough pain. Chronic kidney disease. His creatinine is at baseline. We will continue monitoring. Will avoid nephrotoxic medications. Hypertension. I will order PRN hydralazine. full code. DVT prophylaxis. Heparin. Anemia. Will monitor. It is at his baseline. The plan of care was discussed with the patient. He verbalized understanding and agreement. the case was also discussed during multidisciplinary rounds. Attestations Medical Necessity Statement*: Hopefully home tomorrow. Coding Level of Care Code Acute Health Information Management Director for Andriy Dhillon Diagnoses Acute exacerbation of chronic obstructive airways disease J44.1
[2020-04-04] MEDS: ondansetron 2 mg/ML SDV 2 mL 4 MG IVP (15:55)
[2020-04-04 16:42] LABS: Glucose Point of Care 221 mg/dL (70-110)
[2020-04-04 20:10] LABS: Glucose Point of Care 262 mg/dL (70-110)
[2020-04-05] VITALS (8 sets, daily range): BP systolic 130–160; BP diastolic 64–82; PULSE 81–106; RESP 17–20; TEMP 36.4–36.8; O2SAT 91–97
[2020-04-05] MEDS: heparin 5,000 unit/mL INJ 1 mL 5000 UNIT SUBCUT ×2 (02:38→12:07)
[2020-04-05] MEDS: HYDROcodone-acetaminophen 5-325 mg Tablet 1 TAB PO ×2 (02:38→08:32)
[2020-04-05 06:55] LABS: Glucose Point of Care 89 mg/dL (70-110)
[2020-04-05] MEDS: ipratropium-albuterol 3 mL Neb INHALATION (08:18)
[2020-04-05] MEDS: predniSONE 20 mg Tablet 40 MG PO (08:32)
[2020-04-05] MEDS: metoprolol tartrate 25 mg Tablet 12.5 MG PO ×2 (08:32→17:56)
[2020-04-05] MEDS: aspirin 81 mg EC Tablet PO (08:33)
[2020-04-05] MEDS: tamsulosin 0.4 mg Capsule PO (08:33)
[2020-04-05] MEDS: FUROsemide 40 mg Tablet PO (08:33)
[2020-04-05] MEDS: sertraline 50 mg Tablet 25 MG PO (08:33)
[2020-04-05] MEDS: ondansetron 2 mg/ML SDV 2 mL 4 MG IVP ×2 (09:17→14:12)
[2020-04-05 10:55] LABS: Glucose Point of Care 159 mg/dL (70-110)
--- NOTE | 2020-04-05 12:22 | P.DS_ITS ---
Discharge Providers Date of Admission: 04/01/20 12:42 Date of Discharge: April 05, 2020 Attending Provider at Admission: Jon Johnson Attending Provider at Discharge: Jon Johnson Primary Care Provider: Erik Adkins DO Diagnoses at Discharge Discharge Diagnosis (1) Acute exacerbation of chronic obstructive airways disease: Status: Acute Reason for Visit Reason for Visit: SOB/COUGH Hospital Course Discharge Summary: 80 year old male with past medical history of CAD, indwelling Drake, frequent UTIs, oxygen dependent COPD, CHF, hypertension, chronic pain syndrome who is presenting to emergency room with complaints of worsening shortness of breath. Shortness of breath. Most likely related to COPD acute exacerbation. Continues improving. Switch to p.o. steroid taper. He thinks that he is ready to go home today. The symptoms are well controlled. He will continue steroids and his home medications. He will continue follow-up with his primary care physician. He is asked to come back to emergency room if he develops any worsening of his symptoms. He verbalized understanding and agreement. The patient is found to have urinary tract infection. However I suspect this is chronic colonization. I think it would be reasonable to leave it alone for now unless he becomes symptomatic or develops any signs of sepsis. Chest pain. The chest pain is reported as chronic. He has some ischemic changes on EKGwhich are currently resolved. Inferior leads. troponin was elevated most likely due to demand ischemia. I reviewed the findings with our on-call parish worker Dr. Roth. He agreed with this. He doesn't recommend additional testing or formal cardiac evaluation. We will continue his home medications. Chronic pain syndrome. We will continue his home medications. He ran out of his medications. I gave him a prescription for 20 pills of [place]. He will need to see his primary care physician for long-term management of this problem. Chronic kidney disease. His creatinine is at baseline. Hypertension. Stable. Physical Exam Narrative: EXAM NARRATIVE: The patient is awake alert oriented. No acute distress. Mood and affect are appropriate. Responses are adequate. Skin is warm and dry. Moist mucous membranes. Neck is supple. No JVD Lungs clear bilaterally. mild bilateral diffuse wheezes. No respiratory distress. Heart S1, S2, regular Abdomen soft, nontender, bowel sounds are present Extremities bilateral pedal edema is present. No cyanosis no calf tenderness bilaterally Neurologic examination is nonfocal Normal speech. Urinary Catheter Management^: Drake: Cath Placed During This Visit: no Reason for Continuing Indwelling Catheter: Chronic Indwelling Urinary Catheter on Admission Discharge Data Data Completed and Pending: Completed Studies During Hospitalization Category Date Time Status XR chest 1V saniya ble [id number] Urgent Exams 04/01/20 10:06 Completed Labs from last 24 hours 04/05/20 04/05/20 04/04/20 10:38 06:46 20:07 POC Glucose 159 89 262 04/04/20 16:31 POC Glucose 221 Vitals: Last Vital Signs Temp 97.9 F 04/05/20 11:29 Pulse 81 04/05/20 11:29 Resp 18 04/05/20 11:29 BP 130/82 04/05/20 11:29 Pulse Ox 96 04/05/20 11:29 Discharge Plan Discharge Patient Disposition: Home Condition: Stable Prescriptions: New prednisone 20 mg Tablet See Taper mg PO DAILY Qty: 10 RF: 0 hydrocodone-acetaminophen 5-325 mg Tablet 1 tab PO Q6H PRN (Reason: Pain) Qty: 20 RF: 0 Continued metoprolol tartrate 25 mg Tablet 12.5 mg PO BID Qty: 0 RF: 0 ipratropium-albuterol 0.5 mg-3 mg(2.5 mg base)/3 mL solution for nebulization 2.5 ml INHALATION Q4H PRN (Reason: Shortness Of Breath Or Wheezing) RF: 0 tamsulosin 0.4 mg Capsule 0.4 mg PO DAILY Qty: 30 RF: 0 alprazolam [Xanax] 0.5 mg Tablet 0.5 - 1 mg PO Q4H PRN (Reason: Anxiety) RF: 0 aspirin [Aspir-81] 81 mg Tablet,Delayed Release (Dr/Ec) 81 mg PO DAILY RF: 0 sertraline 25 mg tablet 25 mg PO DAILY RF: 0 furosemide [Lasix] 20 mg tablet 40 mg PO DAILY RF: 0 oxybutynin chloride 5 mg tablet 5 mg PO TID PRN (Reason: Bladder Spasms) RF: 0 ondansetron HCl 4 mg tablet 4 mg PO Q6H PRN (Reason: n/v) RF: 0 Discontinued hydrocodone-acetaminophen 5-325 mg tablet 1 tab PO Q6H PRN (Reason: Pain) RF: 0 Discharge Orders: Discharge Order (Routine); Ordered 04/05/20 Ordered By: Jon Johnson Discharge Diet: Usual diet Activity Restrictions/Additional Instructions: Please follow-up with your primary care physician in 1 week Please return to emergency room if you develop any new worsening shortness of breath, worsening cough, chest pain, palpitations, weakness, lightheadedness, dizziness, nausea or vomiting, diarrhea, fever or chills, or any other new complaints. Discharge Attestations Time Spent in Discharge Care*: less than 30 min Quality Metrics Clinical Quality Measures During this hospital stay, did patient experience: None Coding Level of Care Code Acute Reliability Technologist for Chg Fwd Diagnoses Acute exacerbation of chronic obstructive airways disease J44.1
[2020-04-05 16:50] LABS: Glucose Point of Care 218 mg/dL (70-110)
[2020-04-05] MEDS: ALPRAZolam 0.5 mg Tablet PO (17:56)
== END 2020-04-05 19:04 | disposition hospice, home (50) | DRG 191 ==
LOC: ER 12:06 → MEDSURG 13:18
PROVIDERS: Nurse Practitioner Family; Admitting Provider Internal Medicine; PCP Family Medicine; Visit Provider Internal Medicine
DX: J44.1 Chronic obstructive pulmonary disease with (acute) exacerbation (principal); T83.518A Infection and inflammatory reaction due to other urinary catheter, initial encounter; T83.511A Infection and inflammatory reaction due to indwelling urethral catheter, initial encounter; I13.0 Hypertensive heart and chronic kidney disease with heart failure and stage 1 through stage 4 chronic kidney disease, or unspecified chronic kidney disease; I24.8 Other forms of acute ischemic heart disease; N13.8 Other obstructive and reflux uropathy; G89.4 Chronic pain syndrome; E11.22 Type 2 diabetes mellitus with diabetic chronic kidney disease; N18.3 Chronic kidney disease, stage 3 (moderate); Y69 Unspecified misadventure during surgical and medical care; Y92.009 Unspecified place in unspecified non-institutional (private) residence as the place of occurrence of the external cause; I50.9 Heart failure, unspecified; I25.10 Atherosclerotic heart disease of native coronary artery without angina pectoris; Z99.81 Dependence on supplemental oxygen; Z79.82 Long term (current) use of aspirin; N40.1 Benign prostatic hyperplasia with lower urinary tract symptoms; I35.0 Nonrheumatic aortic (valve) stenosis
CPT/HCPCS: 12345; 36415; 36416; 71045; 80048; 80053; 80069; 81001; 82962; 83605; 83735; 83880; 84145; 84484; 85025; 85610; 87077; 87086; 87186; 87635; 93005; 94640; 96372; 96375; 97116; 97161; 97165; 99283; J0696; J1644; J1815; J2270; J2405; J2543; J2920; J7040; J7512

== ENCOUNTER 2020-05-26 13:23 | Inpatient (IN) | payer MEDICARE, MEDICAID, SELFPAY ==
[2020-05-26] VITALS (7 sets, daily range): BP systolic 117–151; BP diastolic 77–88; PULSE 70–87; RESP 15–19; TEMP 36.9; O2SAT 78–100; BMI 30.4
--- NOTE | 2020-05-26 13:50 | XR_ITS ---
WS: [id number] PORTABLE CHEST HISTORY: dyspnea/cough COMPARISON: 04/01/2020 Moderate elevation of the RIGHT hemidiaphragm similar to the prior study. There is evidence for volum e loss and partial atelectasis RIGHT upper lobe. Mild haziness over the LEFT lung. Small amount of pl eural fluid versus pleural thickening bilaterally. Cardiac size: Moderately enlarged cardiac silhouette. Mediastinum/Aorta: Mild atherosclerosis aorta. Osteopenia. High riding humeral heads. XR/XR chest 1V portable [id number] IMPRESSION: 1. Mild cardiomegaly with stable high riding RIGHT diaphragm. 2. Atelectasis is similar to the prior study in the RIGHT upper lobe. 3. Very mild haziness and interstitial thickening in the central LEFT lung may be pneumonitis.
[2020-05-26 14:11] LABS: Basophils % 0.2 %; Eosinophils # 0.2 10^3/uL (0.0-0.8); Eosinophils % 1.8 %; Hematocrit 35.6 % (42.0-52.0); Hemoglobin 11.1 g/dL (11.7-16.6); Lymphocytes # 1.4 10^3/uL (0.8-4.8); Lymphocytes % 10.5 %; Mean Corpuscular HGB Conc 31.2 g/dL (30.0-36.0); Mean Corpuscular Hemoglobin 26.5 pg (28.0-34.0); Monocytes # 1.1 10^3/uL (0.2-0.9); Monocytes % 8.8 %; Neutrophils # 10.14 10^3/uL (1.8-7.7); Neutrophils % 78.4 %; Nucleated Red Blood Cells % 0 %; Platelet Count 247 10^3/cmm (130-400); Red Blood Count 4.19 10^6/uL (4.1-5.3); Red Cell Distribution Width 15.2 % (12.1-15.1); White Blood Count 12.9 10^3/uL (4.0-10.0)
[2020-05-26] MEDS: sodium chloride 0.9% 1,000 ML 999 ML IV (14:22)
[2020-05-26 14:32] LABS: Alanine Aminotransferase 72 U/L (0-41); Albumin Level 3.5 g/dL (3.5-5.2); Alkaline Phosphatase 363 IU/L (40-130); Anion Gap 14.6 (5-19); Aspartate Amino Transferase 29 U/L (0-40); Blood Urea Nitrogen 33 mg/dL (8-23); Calcium 10.3 mg/dL (8.5-10.5); Carbon Dioxide 34 mmol/L (22-29); Chloride 93 mmol/L (98-107); Globulin 3.4 g/dL (1.3-4.6); Glucose 164 mg/dL (65-115); Osmolality Calculated 297 mOsm/kg (285-295); Potassium 3.6 mmol/L (3.5-5.1); Sodium 138 mmol/L (136-145); Total Bilirubin 0.3 mg/dL (0.15-1.2); Total Protein 6.9 g/dL (6.6-8.7)
--- NOTE | 2020-05-26 14:33 | W.ED.MALEGU ---
HPI - Male Genitourinary General: Chief complaint: Urogenital-Male Stated complaint: UTI Time Seen by Provider: 05/26/20 13:28 History of Present Illness: HPI Narrative: 80-year-old male was recently hospitalized at an outside facility for UTI/pyelonephritis was discharged home on oral antibiotics is been unable to take them at home and is struggling feels like he is getting worse. He normally is on oxygen at 2 L/min and extruding that same requirement in the emergency room today. He is on an oral antibiotic but has not been able to take it. Complaint: dysuria Onset (ago): day(s) Duration: constant Severity: moderate Quality: aching Relieving factors: none Exacerbating factors: none Context: new medication (Discharged home with antibiotic) Associated symptoms: Reports dysuria, fevers/chills, nausea and other (Weakness and shortness of breath) Review of Systems Const: Denies: fever(s), chills, body aches, change in appetite, fatigue or malaise ENMT: Denies: throat pain, ear or mastoid pain, nasal discharge or nasal congestion Card: Denies: chest pain, edema, dyspnea on exertion or orthopnea Resp: Denies: dyspnea, productive cough or non-productive cough GI: Reports: nausea : Reports: dysuria Skin/Breast: Denies: rash or pruritus PFSH ED PFSH: Medical History Aortic stenosis, mild BPH with urinary obstruction CHF (congestive heart failure) Chronic kidney disease, stage 3 COPD (chronic obstructive pulmonary disease) COPD (chronic obstructive pulmonary disease) Diabetes mellitus, type II History of ESBL E. coli infection urine Hospice care patient Hypertension Osteoarthritis chronic back and joint pains Surgical History No pertinent past surgical history denies any surgeries Family History Family/Other No problems noted. Social History Smoking and tobacco status: never smoked Alcohol intake: never Marital status: / Current occupational status: retired and disabled Physical Exam Const: COMMON NORMALS: no acute distress GENERAL APPEARANCE: cooperative and comfortable HENMT: COMMON NORMALS: normocephalic, atraumatic and hearing grossly normal bilaterally HEAD & SCALP: normocephalic and atraumatic Eye: COMMON NORMALS: Equal, round and reactive pupils present, EOMs intact bilaterally, conjunctivae normal and no scleral icterus CONJUNCTIVA: Yes conjunctivae normal PUPIL: Yes Equal, round and reactive pupils present Neck/C-Spine: COMMON NORMALS: full ROM, no lymphadenopathy, supple and no JVD Lymph: LYMPHATIC: no lymphadenopathy noted and no lymphedema noted Resp: COMMON NORMALS: normal respiratory effort, No retractions, No use of accessory muscles and clear to auscultation bilaterally AUSCULTATION: clear to auscultation bilaterally Cardio: COMMON NORMALS: no JVD, regular rate, regular rhythm and No murmurs present (Cardio) RATE: regular rate RHYTHM: regular rhythm GI: COMMON NORMALS: Soft to palpation and No hepatosplenomegaly present AUSCULTATION: Yes normoactive bowel sounds PALPATION: Yes Soft to palpation, No Tenderness to palpation present (GI), No Guarding due to palpation present (GI) and Yes No hepatosplenomegaly present Extremity: COMMON NORMALS: normal to inspection, capillary refill normal, no clubbing, cyanosis or edema, no calf tenderness and no pedal edema Skin: COMMON NORMALS: no rashes or lesions noted GENERAL SKIN EXAM: no rashes or lesions noted Course Vital Signs: Vital signs: Vital Signs Temperature 98.3 F 05/27/20 11:37 Pulse Rate 90 05/27/20 11:37 Respiratory Rate 17 05/27/20 11:37 Blood Pressure 137/88 05/27/20 11:37 Pulse Oximetry 94 05/27/20 11:37 MDM - Male MDM Narrative: Medical decision making narrative: Will admit for sepsis and acute encephalopathy. Discussed Dr. Allen orders written Lab Data: Labs: Lab Results 05/26/20 05/26/20 05/26/20 Range/Units 14:00 14:00 14:00 WBC 12.9 H (4.0-10.0) 10^3/ uL RBC 4.19 (4.1-5.3) 10^6/u L Hgb 11.1 L (11.7-16.6) g/dL Hct 35.6 L (42.0-52.0) % MCV 85.0 (80-94) fL MCH 26.5 L (28.0-34.0) pg MCHC 31.2 (30.0-36.0) g/dL RDW 15.2 H (12.1-15.1) % Plt Count 247 (130-400) 10^3/c mm MPV 10.0 (7.4-10.4) fL Neut % (Auto) 78.4 % Lymph % (Auto) 10.5 % [place] % (Auto) 8.8 % Eos % (Auto) 1.8 % Baso % (Auto) 0.2 % Neut # (Auto) 10.14 H (1.8-7.7) 10^3/u L Lymph # (Auto) 1.4 (0.8-4.8) 10^3/u L [place] # (Auto) 1.1 H (0.2-0.9) 10^3/u L Eos # (Auto) 0.2 (0.0-0.8) 10^3/u L Baso # (Auto) 0.0 (0.0-0.1) 10^3/u L Nucleated RBC % (a uto) 0 % Nucleated RBCs # 0.0 /100WBC Sodium 138 (136-145) mmol/L Potassium 3.6 (3.5-5.1) mmol/L Chloride 93 L (98-107) mmol/L Carbon Dioxide 34 H (22-29) mmol/L Anion Gap 14.6 (5-19) BUN 33 H (8-23) mg/dL Creatinine 1.6 H (0.7-1.2) mg/dL GFR Calculation Not Reportable Glucose 164 H (65-115) mg/dL Calculated Osmolal ity 297 H (285-295) mOsm/k g Lactic Acid 1.0 (0.5-2.2) mmol/L Calcium 10.3 (8.5-10.5) mg/dL Total Bilirubin 0.3 (0.15-1.2) mg/dL AST 29 (0-40) U/L ALT 72 H (0-41) U/L Alkaline Phosphata se 363 H (40-130) IU/L Total Protein 6.9 (6.6-8.7) g/dL Albumin 3.5 (3.5-5.2) g/dL Globulin 3.4 (1.3-4.6) g/dL Urine Color (Yellow) Urine Appearance (CLEAR) Urine pH (5-7) Ur Specific Gravit y (1.005-1.030) Urine Protein (Negative) Urine Glucose (UA) (Normal) Urine Ketones (Negative) Urine Blood (Negative) Urine Nitrate (Negative) Urine Bilirubin (Negative) Urine Urobilinogen (Negative) mg/dL Ur Leukocyte Ladi ase (Negative) Urine RBC (0-2) /hpf Urine WBC (0-5) /hpf Ur Squamous Epith Cells (0-5) /hpf Amorphous Sediment /hpf Urine Bacteria (NONE) /hpf 05/26/20 Range/Units 14:11 WBC (4.0-10.0) 10^3/ uL RBC (4.1-5.3) 10^6/u L Hgb (11.7-16.6) g/dL Hct (42.0-52.0) % MCV (80-94) fL MCH (28.0-34.0) pg MCHC (30.0-36.0) g/dL RDW (12.1-15.1) % Plt Count (130-400) 10^3/c mm MPV (7.4-10.4) fL Neut % (Auto) % Lymph % (Auto) % [place] % (Auto) % Eos % (Auto) % Baso % (Auto) % Neut # (Auto) (1.8-7.7) 10^3/u L Lymph # (Auto) (0.8-4.8) 10^3/u L [place] # (Auto) (0.2-0.9) 10^3/u L Eos # (Auto) (0.0-0.8) 10^3/u L Baso # (Auto) (0.0-0.1) 10^3/u L Nucleated RBC % (a uto) % Nucleated RBCs # /100WBC Sodium (136-145) mmol/L Potassium (3.5-5.1) mmol/L Chloride (98-107) mmol/L Carbon Dioxide (22-29) mmol/L Anion Gap (5-19) BUN (8-23) mg/dL Creatinine (0.7-1.2) mg/dL GFR Calculation Glucose (65-115) mg/dL Calculated Osmolal ity (285-295) mOsm/k g Lactic Acid (0.5-2.2) mmol/L Calcium (8.5-10.5) mg/dL Total Bilirubin (0.15-1.2) mg/dL AST (0-40) U/L ALT (0-41) U/L Alkaline Phosphata se (40-130) IU/L Total Protein (6.6-8.7) g/dL Albumin (3.5-5.2) g/dL Globulin (1.3-4.6) g/dL Urine Color Yellow (Yellow) Urine Appearance Hazy A (CLEAR) Urine pH 5 (5-7) Ur Specific Gravit y 1.010 (1.005-1.030) Urine Protein Neg (Negative) Urine Glucose (UA) Norm (Normal) Urine Ketones Negative (Negative) Urine Blood 2+ H (Negative) Urine Nitrate Positive H (Negative) Urine Bilirubin Neg (Negative) Urine Urobilinogen Norm (Negative) mg/dL Ur Leukocyte Ladi ase Trace H (Negative) Urine RBC 0-4 H (0-2) /hpf Urine WBC 5-10 H (0-5) /hpf Ur Squamous Epith Cells 5-10 H (0-5) /hpf Amorphous Sediment 2+ /hpf Urine Bacteria 4+ H (NONE) /hpf Discharge Plan Discharge Patient Disposition: Admitted As Inpatient Admit Provider: David Allen Clinical Impression: Generalized weakness, Respiratory failure, acute and chronic, Chronic kidney disease, stage 3, Acute kidney injury superimposed on CKD, UTI (urinary tract infection), Alkaline phosphatase elevation, Leg weakness, bilateral Condition: Stable Coding Level of Care Code 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
[2020-05-26 14:42] LABS: Add Urine Microscopic? YES; Bilirubin Urine Neg (Negative); Blood Urine 2+ (Negative); Glucose Urine UA Norm (Normal); Ketones Urine Negative (Negative); Leukocyte Esterase Urine Trace (Negative); Nitrate Urine Positive (Negative); Protein Urine Neg (Negative); Urine Appearance Hazy (CLEAR); Urine Color Yellow (Yellow); Urobilinogen Urine Norm (Negative); pH Urine 5 (5-7)
[2020-05-26 14:49] LABS: RBC Urine 0-4 /hpf (0-2)
[2020-05-26 14:50] LABS: Add Urine Culture? Yes; Amorphous Sediment Urine 2+ /hpf; Bacteria Urine 4+ /hpf
[2020-05-26 16:47] LABS: SARS Covid-2 Antigen Negative (Negative)
--- NOTE | 2020-05-26 17:37 | P.HP_ITS ---
Providers/Chief Complaint Admitting Physician: David Allen Primary Care Provider: Erik Adkins DO Chief Complaint: UTI History of Present Illness Vladimir Farnsworth is a 80 year old male 80-year-old gentleman with history of CHF, Chronic kidney disease, oxygen dependent COPD on 3 L at home, CAD, frequent UTI, indwelling Drake catheter, HTN, chronic pain syndrome, reports recent admission to [facility] with urinary infection, states treated there for 5 days, but says again is having symptoms, with urinary burning, generalized weakness, and also reports that his legs have been feeling more numb than usual and have been hurting him more. He denies any recent fall. He denies more cough than usual. Denies any nausea vomiting or diarrhea. Denies any muscle aches elsewhere. Denies headache. Discussing with his daughter she states he is on hospice and was in [facility] for respite care. After discharge he had not been acting like his usual self. He was not eating or drinking, and he had a fever found by hospice nurse up to 100 or 101 F per daughter. Family felt he was much weaker than usual. Say he has been isolating at home apart from the recent hospital stay. Daughter denies recent fall. Does have prior history of ESBLUTI. Review of Systems Const: Reports: fever(s) and fatigue; Denies: chills, body aches or malaise Eyes: Denies: change in vision or eye redness ENMT: Denies: throat pain, oral sores or ear or mastoid pain Card: Denies: chest pain, edema, pre-syncope or dyspnea on exertion Resp: Denies: dyspnea, productive cough, change in phlegm color or hemoptysis GI: Denies: abdominal pain, nausea, vomiting, diarrhea, constipation, hematochezia or melena : Reports: urinary urgency and other (dysuria); Denies: flank pain, difficulty urinating, urinary frequency, urinary incontinence or hematuria Musc: Denies: back pain, joint swelling or joint redness Skin/Breast: Denies: rash, sores or new lesions Neuro: Reports: weakness in extremities (Legs, and reports more numb than usual); Denies: headache(s), numbness in extremities, dizziness, confusion or seizure- like activity Endo: Denies: polyuria or polydipsia Riky/Lymph: Denies: easy bleeding or purpura All/Imm: Denies: urticaria, throat swelling or tongue swelling Medications/Allergies Home Medications Medication Instructions Recorded Confirmed Last Taken Type ipratropium-albuterol 2.5 ml INHALATION Q4H PRN 11/03/19 05/26/20 04/01/20 History metoprolol tartrate 12.5 mg PO BID #0 11/03/19 05/26/20 03/31/20 History tamsulosin 0.4 mg PO DAILY #30 cap 11/08/19 05/26/20 03/31/20 Rx alprazolam [Xanax] 0.5 - 1 mg PO Q4H PRN 01/25/20 05/26/20 03/31/20 History aspirin [Aspir-81] 81 mg PO DAILY 02/21/20 05/26/20 03/31/20 History furosemide [Lasix] 40 mg PO DAILY 02/21/20 05/26/20 03/31/20 History oxybutynin chloride 5 mg PO TID PRN 02/21/20 05/26/20 03/31/20 History sertraline 25 mg PO DAILY 02/21/20 05/26/20 03/31/20 History ondansetron HCl 4 mg PO Q6H PRN 04/01/20 05/26/20 03/31/20 History hydrocodone-acetaminophen 1 tab PO Q6H PRN #20 tab 04/05/20 05/26/20 Unknown Rx prednisone See Taper PO DAILY #10 tab 04/05/20 05/26/20 Unknown Rx albuterol sulfate 2.5 mg INHALATION Q6H PRN 05/26/20 05/26/20 Unknown History famotidine 20 mg PO BID 05/26/20 05/26/20 Unknown History gabapentin 100 mg PO TID 05/26/20 05/26/20 Unknown History Allergies Allergy/AdvReac Type Severity Reaction Status Date / Time No Known Allergies Allergy Verified 02/22/20 16:42 PFSH Acute PFSH: Medical History Aortic stenosis, mild BPH with urinary obstruction CHF (congestive heart failure) Chronic kidney disease, stage 3 COPD (chronic obstructive pulmonary disease) COPD (chronic obstructive pulmonary disease) Diabetes mellitus, type II History of ESBL E. coli infection urine Hospice care patient Hypertension Osteoarthritis chronic back and joint pains Surgical History No pertinent past surgical history denies any surgeries Family History Family/Other No problems noted. Social History Smoking and tobacco status: never smoked Alcohol intake: never Marital status: / Current occupational status: retired and disabled Vitals/I&O/Wt Last Vital Signs Pulse 79 05/26/20 17:23 Resp 15 05/26/20 17:23 BP 135/79 05/26/20 17:23 Pulse Ox 97 05/26/20 17:23 Weight last 48 hrs Weight 90.718 kg Physical Exam Const: COMMON NORMALS: no acute distress and patient oriented x3 GENERAL APPEARANCE: frail appearing HENMT: COMMON NORMALS: oropharynx normal Neck/C-Spine: COMMON NORMALS: no JVD Resp: COMMON NORMALS: normal respiratory effort and clear to auscultation bilaterally AUSCULTATION: clear to auscultation bilaterally Cardio: COMMON NORMALS: no JVD, regular rhythm, S1 normal heart sound present, S2 normal heart sound present and No murmurs present (Cardio) RHYTHM: regular rhythm HEART SOUNDS: S1 normal heart sound present and S2 normal heart sound present GI: COMMON NORMALS: Normal to inspection, nondistended, normoactive bowel sounds present, Soft to palpation and non-tender PALPATION: Yes Soft to palpation Extremity: COMMON NORMALS: no joint enlargement and no pedal edema Neuro: COMMON NORMALS: patient oriented x3 and moves all extremities Skin: COMMON NORMALS: no rashes or lesions noted GENERAL SKIN EXAM: no rashes or lesions noted Data : 05/26/20 14:00 05/26/20 14:00 Micro: Microbiology 05/26/20 14:00 Blood Culture - Preliminary Blood SPECIMEN COLLECTED A&P Assessment and plan (1) Generalized weakness: Patient family report generalized weakness after discharge from [facility]. Also noted fever up to 100-101 Fahrenheit. Rapid COVID-19 test is negative. Will check COVID-19 PCR. Possible urinary tract infection he is reports dysuria. History of ESBL UTI. Treatment as below. Possible pneumonitis, although he denies more cough than usual, more shortness of breath than usual. He is at baseline on 3 L oxygen by nasal cannula. He is on hospice care. He is agreeable for admission only for additional diagnostic measures and antibiotic. He does not want aggressive measures in ca se of severe illness, and no CPR in case of cardiopulmonary arrest. Status: Acute (2) Fever: Assess for coronavirus. Treat UTI. Blood cultures collected. Urine culture collected. Status: Acute (3) UTI (urinary tract infection): Possible urinary tract infection based on symptoms. 5-10 WBC, but positive nitrite in urine. Would be complicated UTI given history of ESBL infections, as well as generalized systemic symptoms with generalized weakness, possible sepsis with fever at home, leukocytosis 12.9 here, although otherwise currently does not fit sepsis criteria. Start Primaxin for now. Follow culture. Per discussion with daughter did not have assessment for UTI at [facility], was only there for respite care. We will try to request records. Status: Acute (4) Hospice care patient: Status: Acute (5) Leg weakness, bilateral: Bilateral lower extremity weakness, he also notes worse numbness than usual. Pain. Will image with CT thoracic and lumbar spine. He denies recent fall, but is also chronically on prednisone. Will exclude cord compression, although this is less likely, he otherwise has no symptoms to suggest cauda equina syndrome. Status: Acute (6) Alkaline phosphatase elevation: Status: Acute Attestations Medical Necessity Statement*: Admission of over 2 midnights is continued for assessment management of complicated UTI, generalized weakness, lower extremity numbness. Coding Level of Care Code Acute Medical Scientific Officer for [facility] Fwd Diagnoses Generalized weakness R53.1 Fever R50.9 UTI (urinary tract infection) N39.0 Hospice care patient Z51.5 Leg weakness, bilateral R29.898 Alkaline phosphatase elevation R74.8
--- NOTE | 2020-05-26 18:46 | CTR_ITS ---
PROCEDURE INFORMATION: Exam: CT Lumbar Spine Without Contrast Exam date and time: 05/26/2020 8:26 PM Age: 80 years old Clinical indication: Numbness and weakness; Additional info: Leg numbness TECHNIQUE: Imaging protocol: Computed tomography images of the lumbar spine without contrast. Radiation optimization: All CT scans at this facility use at least one of these dose optimization techniques: automated exposure control; mA and/or kV adjustment per patient size (includes targeted exams where dose is matched to clinical indication); or iterative reconstruction. COMPARISON: [place] [id number] 01/20/2019 5:07 PM RADIATION DOSE METRICS: Total DLP (mGy-cm): 2362.2 FINDINGS: Vertebrae: Alignment is normal. Vertebral body height is maintained. There are small Schmorl's nodes involving the endplates from L2 through L5. There is no acute fracture. Discs/Spinal canal/Neural foramina: There is [id number] diffuse degenerative disc disease with generalized disc bulges and vertebral osteophytes. No focal disc herniation is visible. There is [id number] multilevel bilateral facet spondylosis and posterior ligamentous hypertrophy. There is multifactorial spinal canal stenosis which is severe at L2-L3 and moderate L3-L4. Other bones/joints: The visible portion of the pelvis and sacrum is intact. Vasculature: There is severe aortic atherosclerotic disease. Soft tissues: Paraspinal soft tissues are unremarkable. CT/CT lumbar spine wo con* [id number] IMPRESSION: 1. No acute findings. No fracture. 2. Severe multifactorial degenerative spinal canal stenosis at L2-L3. Moderate spinal canal stenosis at L3-L4. Findings are similar to 01/20/2019. Radiation Dose CTDIVOL = (mGy): DLP = 2362.2 (mGy-cm)
--- NOTE | 2020-05-26 18:46 | CTR_ITS ---
PROCEDURE INFORMATION: Exam: CT Thoracic Spine Without Contrast Exam date and time: 05/26/2020 8:26 PM Age: 80 years old Clinical indication: Numbness and weakness; Additional info: Leg pain, numbness TECHNIQUE: Imaging protocol: Computed tomography images of the thoracic spine without contrast. Radiation optimization: All CT scans at this facility use at least one of these dose optimization techniques: automated exposure control; mA and/or kV adjustment per patient size (includes targeted exams where dose is matched to clinical indication); or iterative reconstruction. COMPARISON: CTA Thoracic/Abd/Pelvis Aorta 10/31/2018 11:35 AM RADIATION DOSE METRICS: Total DLP (mGy-cm): 2261.82 FINDINGS: Vertebrae: Alignment is normal. Vertebral body height is maintained. There is no acute fracture. Discs/Spinal canal/Neural foramina: No visible disc herniation. There is no high-grade spinal canal stenosis. There is a mild generalized disc bulge and posterior vertebral osteophytes producing mild spinal canal stenosis at T9-10 and T10-11. Other bones/joints: Visible portions of the ribs are intact. Soft tissues: Paraspinal soft tissues are unremarkable. Visible intrathoracic soft tissues are unremarkable. CT/CT thoracic spin wo con* [id number] IMPRESSION: 1. No acute findings. No fracture. 2. Mild degenerative spinal canal stenosis at T9-10 and T10-11. Radiation Dose CTDIVOL = (mGy): DLP = 2261.82 (mGy-cm)
[2020-05-26] MEDS: famotidine 20 mg Tablet PO (20:27)
[2020-05-26] MEDS: D5-NS 0.45% + KCL 20 mEq 20 MEQ/1,000 ML BAG 100 MEQ IV (20:28)
[2020-05-26] MEDS: heparin 5,000 unit/mL INJ 1 mL 5000 UNIT SUBCUT (20:28)
[2020-05-26] MEDS: metoprolol tartrate 25 mg Tablet 12.5 MG PO (20:29)
[2020-05-26] MEDS: gabapentin 100 mg Capsule PO (20:29)
[2020-05-26] MEDS: HYDROcodone-acetaminophen 5-325 mg Tablet 1 TAB PO (20:48)
[2020-05-26] MEDS: ALPRAZolam 0.5 mg Tablet PO (22:16)
[2020-05-27] VITALS (10 sets, daily range): BP systolic 108–138; BP diastolic 59–88; PULSE 69–98; RESP 16–20; TEMP 36.7–37.1; O2SAT 94–99
[2020-05-27] MEDS: heparin 5,000 unit/mL INJ 1 mL 5000 UNIT SUBCUT ×3 (03:34→21:19)
[2020-05-27] MEDS: HYDROcodone-acetaminophen 5-325 mg Tablet 1 TAB PO ×3 (03:38→21:21)
--- NOTE | 2020-05-27 05:24 | PHA.FALL ---
A Pharmacy Consult Was Conducted For Vladimir Farnsworth Due To: Wilde Fall Scale Risk Level: High Fall Risk On 05/26/20 21:05 And A Medication Fall Risk Score Greater Than 10. The Recommendations Are As Follows: Summated Standardized Daily Dose (SDD) Results: Previous choices and individual SDD scores Hydrocodone 10 mg - SDD: 1.3. MME conversion factor: 1.3 Sertraline 25 mg - SDD: 0.5. Effective geriatric dose: 50mg Gabapentin 300 mg - SDD: 0.33 Effective geriatric dose: 900mg Alprazolam 0.5 mg - SDD: 2 Effective geriatric dose: 0.25mg Scoring Sub scores: Antidepressants: 0.5 Opioid Receptor Agonist: 1.3 Antiepileptics: 0.33 Antipsychotics: 0 Benzodiazepine Receptor Agonists: 2 Total score -Summated Standardized Daily Dose (SDD): 3.63 Implications: High WASTEWATER SUPERINTENDENT medication burden significantly increases the risk of falls. High burden is defined as a summated standardized daily dose (SDD) score of 3 or greater. WASTEWATER SUPERINTENDENT medications include antidepressants, antiepileptics, antipsychotics, benzodiazepines, and opioids. Goal is to reduce SDD to <3 by reducing doses and/or stopping WASTEWATER SUPERINTENDENT medications. How to Calculate WASTEWATER SUPERINTENDENT Medication [place] Determine if patient taking any WASTEWATER SUPERINTENDENT medication from adjoining panels Divide the daily dosage of that drug by the minimum effective geriatric daily dose Do that for each WASTEWATER SUPERINTENDENT drug and sum the results; If 3+ then suggest discontinue or lower dosage. EXAMPLE Patient takes 2 WASTEWATER SUPERINTENDENT drugs; Tramadol 50 mg twice daily & Amitriptyline 50mg at bedtime Tramadol: 100mg per day- 20MME /10MME = 2 PLUS Amitriptyline 50mg/day/ 10mg/day* = 5.0 *Effective Geriatric Daily Dose (mg) Result: SDD = 7.0 (greater than 3 indicating a high fall risk) [place] Report
[2020-05-27 05:35] LABS: Basophils % 0.4 %; Eosinophils # 0.3 10^3/uL (0.0-0.8); Eosinophils % 3.1 %; Hematocrit 30.7 % (42.0-52.0); Hemoglobin 9.4 g/dL (11.7-16.6); Lymphocytes # 1.3 10^3/uL (0.8-4.8); Lymphocytes % 14.3 %; Mean Corpuscular HGB Conc 30.6 g/dL (30.0-36.0); Mean Corpuscular Hemoglobin 26.3 pg (28.0-34.0); Mean Corpuscular Volume 85.8 fL (80-94); Mean Platelet Volume 10.1 fL (7.4-10.4); Monocytes # 0.8 10^3/uL (0.2-0.9); Neutrophils # 6.52 10^3/uL (1.8-7.7); Neutrophils % 72.9 %; Nucleated Red Blood Cells % 0 %; Platelet Count 216 10^3/cmm (130-400); Red Blood Count 3.58 10^6/uL (4.1-5.3); Red Cell Distribution Width 15.1 % (12.1-15.1)
[2020-05-27 05:45] LABS: Alanine Aminotransferase 48 U/L (0-41); Alkaline Phosphatase 280 IU/L (40-130); Anion Gap 12.6 (5-19); Aspartate Amino Transferase 18 U/L (0-40); Blood Urea Nitrogen 30 mg/dL (8-23); Calcium 9.5 mg/dL (8.5-10.5); Carbon Dioxide 32 mmol/L (22-29); Chloride 97 mmol/L (98-107); Globulin 2.8 g/dL (1.3-4.6); Glucose 188 mg/dL (65-115); Osmolality Calculated 297 mOsm/kg (285-295); Potassium 3.6 mmol/L (3.5-5.1); Sodium 138 mmol/L (136-145); Total Bilirubin 0.2 mg/dL (0.15-1.2); Total Protein 5.8 g/dL (6.6-8.7)
[2020-05-27] MEDS: gabapentin 100 mg Capsule PO ×3 (08:03→21:21)
[2020-05-27] MEDS: aspirin 81 mg EC Tablet PO (08:03)
[2020-05-27] MEDS: sertraline 50 mg Tablet 25 MG PO (08:04)
[2020-05-27] MEDS: FUROsemide 40 mg Tablet PO (08:04)
[2020-05-27] MEDS: tamsulosin 0.4 mg Capsule PO (08:04)
[2020-05-27] MEDS: famotidine 20 mg Tablet PO ×2 (08:04→17:11)
[2020-05-27] MEDS: metoprolol tartrate 25 mg Tablet 12.5 MG PO ×2 (08:04→17:12)
[2020-05-27] MEDS: D5-NS 0.45% + KCL 20 mEq 20 MEQ/1,000 ML BAG 100 MEQ IV ×2 (08:05→21:20)
--- NOTE | 2020-05-27 09:27 | PC.CHAP ---
Pastoral Care Encounter/Spiritual Assessment Type of Contact [] Declined deliverer outside visit [] Patient/Family/Request visit [] Outpatient visit [] Follow-up visit [] Physician referral [] Code/Alert [] Routine visit [] Staff referral [] Actively dying [] Patient sleeping [] Family support [] [] Out of room [] Palliative care [] [] Receiving care in room [] Pre-surgical visit [] Trauma [] Long length of stay [] ICU visit [] Other: Relational/Emotional Strength [] Patient feels connected with others/family/visitors/staff [] Distress [] Loneliness/isolation [] Abandonment Spirituality of Patient [] Person of Rosio [] Attends Mormon of their Rosio [] Believes in Prayer [] Reads Bible or Mormon materials [] There are Spiritual issues to be addressed Cut Tobacco Bulker Interventions [x] Prayer [] Active listening [] Non-anxious presence [] Spiritual/emotional support [] Crisis/trauma care [] Spiritual counseling [] Bereavement support [] Provided bereavement packet [] Provided Bible/devotional materials [] Provided toy/stuffed animal, coloring book to patient or family member [] Provided Communion [] Anointing/Lillie [] Salvation [x] Completed spiritual assessment [] Other: Impact on Illness or Injury [] Angry [] Fearful [] Anxious [] Often cries [] Exhaustion [] Unable to work [] Unable to attend yazdanism [] Unable to walk/stand [] Unable to read [] Unable to drive [] Unable to eat/drink [] Unable to sleep [] Unable to be with family [] Patient intubated [] Other: Summary Time spent with patient
--- NOTE | 2020-05-27 19:56 | PM.PN ---
Subjective Subjective: Interval history: He reports he actually feels a little bit better today. States that he had considered going to skilled nurse for [facility] for rehabilitation but decides against this. He wants to continue with hospice care. He does want to receive antibiotic treatment even if this entails IV infusions. Vitals/I&O/Wt Last Vital Signs Temp 98.5 F 05/27/20 19:47 Pulse 91 05/27/20 19:47 Resp 20 H 05/27/20 19:47 BP 138/80 05/27/20 19:47 Pulse Ox 99 05/27/20 19:47 05/27/20 05/27/20 05/27/20 06:59 14:59 22:59 Intake Total 1145 / 0155.694 9776.333 / 1253.333 380 / 1633.333 Output Total 750 / 1950 650 / 650 350 / 1000 Balance 395 / -223.333 603.333 / 603.333 30 / 633.333 Weight last 48 hrs Weight 89.131 kg Weight 90.718 kg Physical Exam Const: COMMON NORMALS: no acute distress and patient oriented x3 OTHER: Sitting up at the edge of the bed eating his meal. Appears stronger, more conversant. HENMT: COMMON NORMALS: oropharynx normal Neck/C-Spine: COMMON NORMALS: no JVD Resp: COMMON NORMALS: normal respiratory effort and clear to auscultation bilaterally AUSCULTATION: clear to auscultation bilaterally Cardio: COMMON NORMALS: no JVD, regular rhythm, S1 normal heart sound present, S2 normal heart sound present and No murmurs present (Cardio) RHYTHM: regular rhythm HEART SOUNDS: S1 normal heart sound present and S2 normal heart sound present GI: COMMON NORMALS: Normal to inspection, nondistended, normoactive bowel sounds present, Soft to palpation and non-tender PALPATION: Yes Soft to palpation Extremity: COMMON NORMALS: no joint enlargement and no pedal edema Neuro: COMMON NORMALS: patient oriented x3 and moves all extremities Skin: COMMON NORMALS: no rashes or lesions noted GENERAL SKIN EXAM: no rashes or lesions noted Urinary Catheter Management^: Drake: Cath Placed During This Visit: no Reason for Continuing Indwelling Catheter: Chronic Indwelling Urinary Catheter on Admission Data : 05/27/20 05:11 05/27/20 05:11 Micro: Microbiology 05/26/20 17:41 Blood Culture - Preliminary Blood NEGATIVE TO DATE 05/26/20 14:00 Blood Culture - Preliminary Blood NEGATIVE TO DATE 05/26/20 14:11 Urine Culture - Preliminary Urine,Clean Catch Gram Negative Rods A&P Assessment and plan (1) Generalized weakness: Appears to be secondary to complicated urinary tract infection, possible ESBL organism. Continue Primaxin. Follow-up on COVID-19 results which are pending. For now maintain isolation. Possible urinary tract infection he is reports dysuria. History of ESBL UTI. Treatment as below. Possible pneumonitis, although he denies more cough than usual, more shortness of breath than usual. He is at baseline on 3 L oxygen by nasal cannula. He is on hospice care. He is agreeable for admission only for additional diagnostic measures and antibiotic. He does not want aggressive measures in case of severe illness, and no CPR in case of cardiopulmonary arrest. Status: Acute (2) Fever: Assess for coronavirus. Treat UTI. Blood cultures collected. Urine culture collected, so far growing gram-negative rods. Follow-up. Remains afebrile. Status: Acute (3) UTI (urinary tract infection): Growing gram-negative rods in urine. Continue Primaxin at this time. Has history of ESBL E. coli UTI. He reports feeling better with treatment. Considered going to intermediate, but decided against this, wants to continue with hospice care, but does want to receive antibiotic treatment for UTI, even if this entails IV infusions. Per discussion with daughter did not have assessment for UTI at [facility], was only there for respite care. We will try to request records. 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 Moderate spinal canal stenosis L3-4. Mild degenerative stenosis at T9-10, T10-11. Bilateral lower extremity weakness, he also notes worse numbness than usual. Pain. Status: Acute (6) Alkaline phosphatase elevation: Status: Acute Attestations Medical Necessity Statement*: Continue admission for assessment management of complicated UTI, with history ESBL E. coli UTI, continue IV antibiotic treatment with Primaxin, disposition planning. Coding Level of Care Code Acute Assembler Installer General for [facility] Jacquie Diagnoses Generalized weakness R53.1 Fever R50.9 UTI (urinary tract infection) N39.0 Hospice care patient Z51.5 Leg weakness, bilateral R29.898 Alkaline phosphatase elevation R74.8
[2020-05-27] MEDS: ALPRAZolam 0.5 mg Tablet PO (21:23)
[2020-05-28] VITALS (8 sets, daily range): BP systolic 131–145; BP diastolic 70–87; PULSE 70–101; RESP 16–19; TEMP 36.6–36.9; O2SAT 94–100
[2020-05-28] MEDS: HYDROcodone-acetaminophen 5-325 mg Tablet 1 TAB PO ×3 (03:52→20:10)
[2020-05-28] MEDS: heparin 5,000 unit/mL INJ 1 mL 5000 UNIT SUBCUT ×3 (04:26→20:10)
[2020-05-28 05:34] LABS: Basophils # 0.1 10^3/uL (0.0-0.1); Basophils % 0.5 %; Eosinophils # 0.4 10^3/uL (0.0-0.8); Eosinophils % 3.8 %; Hematocrit 31.5 % (42.0-52.0); Hemoglobin 9.7 g/dL (11.7-16.6); Lymphocytes % 10.3 %; Mean Corpuscular HGB Conc 30.8 g/dL (30.0-36.0); Mean Corpuscular Hemoglobin 26.4 pg (28.0-34.0); Mean Corpuscular Volume 85.6 fL (80-94); Mean Platelet Volume 9.9 fL (7.4-10.4); Monocytes % 9.8 %; Neutrophils # 7.27 10^3/uL (1.8-7.7); Neutrophils % 75.1 %; Nucleated Red Blood Cells % 0 %; Platelet Count 220 10^3/cmm (130-400); Red Blood Count 3.68 10^6/uL (4.1-5.3); Red Cell Distribution Width 14.9 % (12.1-15.1); White Blood Count 9.7 10^3/uL (4.0-10.0)
[2020-05-28 05:54] LABS: Alanine Aminotransferase 38 U/L (0-41); Alkaline Phosphatase 276 IU/L (40-130); Anion Gap 12.7 (5-19); Aspartate Amino Transferase 13 U/L (0-40); Blood Urea Nitrogen 26 mg/dL (8-23); Calcium 9.5 mg/dL (8.5-10.5); Carbon Dioxide 30 mmol/L (22-29); Chloride 95 mmol/L (98-107); Globulin 2.9 g/dL (1.3-4.6); Glucose 167 mg/dL (65-115); Osmolality Calculated 287 mOsm/kg (285-295); Potassium 3.7 mmol/L (3.5-5.1); Sodium 134 mmol/L (136-145); Total Bilirubin 0.2 mg/dL (0.15-1.2); Total Protein 5.9 g/dL (6.6-8.7)
[2020-05-28] MEDS: famotidine 20 mg Tablet PO ×2 (08:28→18:42)
[2020-05-28] MEDS: FUROsemide 40 mg Tablet PO (08:28)
[2020-05-28] MEDS: gabapentin 100 mg Capsule PO ×3 (08:28→20:10)
[2020-05-28] MEDS: D5-NS 0.45% + KCL 20 mEq 20 MEQ/1,000 ML BAG 100 MEQ IV ×2 (08:28→18:42)
[2020-05-28] MEDS: tamsulosin 0.4 mg Capsule PO (08:28)
[2020-05-28] MEDS: metoprolol tartrate 25 mg Tablet 12.5 MG PO ×2 (08:28→18:41)
[2020-05-28] MEDS: aspirin 81 mg EC Tablet PO (08:28)
[2020-05-28] MEDS: sertraline 50 mg Tablet 25 MG PO (08:28)
[2020-05-28] MEDS: acetaminophen 325 mg Tablet 650 MG PO ×2 (14:16→22:13)
--- NOTE | 2020-05-28 16:00 | P.PN_ITS ---
Subjective Subjective: Interval history: When asked how he is doing, says he is not doing well . Says it is due to urinary infection. But says that he is improving. Vitals/I&O/Wt Last Vital Signs Temp 98.2 F 05/28/20 15:16 Pulse 88 05/28/20 15:16 Resp 18 05/28/20 15:16 BP 144/77 05/28/20 15:16 Pulse Ox 100 05/28/20 15:16 05/28/20 05/28/20 05/28/20 06:59 14:59 22:59 Intake Total 1700 / 1700 Output Total 1700 / 2800 1200 / 1200 Balance -1700 / -66.667 500 / 500 Weight last 48 hrs Weight 88.904 kg Weight 89.131 kg Physical Exam Const: COMMON NORMALS: no acute distress and patient oriented x3 GENERAL APPEARANCE: frail appearing OTHER: Sitting up in bed. HENMT: COMMON NORMALS: oropharynx normal Neck/C-Spine: COMMON NORMALS: no JVD Resp: COMMON NORMALS: normal respiratory effort and clear to auscultation bilaterally AUSCULTATION: clear to auscultation bilaterally Cardio: COMMON NORMALS: no JVD, regular rhythm, S1 normal heart sound present, S2 normal heart sound present and No murmurs present (Cardio) RHYTHM: regular rhythm HEART SOUNDS: S1 normal heart sound present and S2 normal heart sound present GI: COMMON NORMALS: Normal to inspection, nondistended, normoactive bowel sounds present, Soft to palpation and non-tender PALPATION: Yes Soft to palpation Extremity: COMMON NORMALS: no joint enlargement and no pedal edema Neuro: COMMON NORMALS: patient oriented x3 and moves all extremities Skin: COMMON NORMALS: no rashes or lesions noted GENERAL SKIN EXAM: no rashes or lesions noted Urinary Catheter Management^: Drake: Cath Placed During This Visit: no Reason for Continuing Indwelling Catheter: Chronic Indwelling Urinary Catheter on Admission Data : 05/28/20 05:24 05/28/20 05:24 Micro: Microbiology 05/26/20 14:11 Urine Culture - Final Urine,Clean Catch Escherichia coli esbl 05/26/20 17:41 Blood Culture - Preliminary Blood NEGATIVE TO DATE 05/26/20 14:00 Blood Culture - Preliminary Blood NEGATIVE TO DATE A&P Assessment and plan (1) UTI (urinary tract infection): Complicated UTI, ESBL E. coli, 70-80,000. Given he was symptomatic, responding to treatment, I believe this is an actual infection. His leukocytosis has resolved. Possible sepsis resolved. No recurrence of fever. He is feeling better. He does have a chronic Drake catheter. Discussing with him he states he is to follow-up with urology. Prescription with nursing staff it appears Drake was attempted to be removed in the past, but always had to be put back. I see he is on Flomax. We may attempt to add Proscar, and consider perhaps follow-up with urology for weaning trial to see if we can discontinue the chronic Drake. Given ESBL infection, is currently being treated with Primaxin. He wants to maintain hospice care, however, per case coordination they are unable to accommodate 3 days of once daily antibiotic infusions. We will go ahead and continue IV antibiotics here to complete the course and continue hospice care on discharge. Status: Acute (2) Generalized weakness: Improving. Treat UTI. Possible pneumonitis, although he denies more cough than usual, more shortness of breath than usual. He is at baseline on 3 L oxygen by nasal cannula. He is on hospice care. He is agreeable for admission only for additional diagnostic measures and antibiotic. He does not want aggressive measures in case of severe illness, and no CPR in case of cardiopulmonary arrest. Status: Acute (3) Fever: Pending PCR test for coronavirus. Treat UTI. Blood cultures collected. Urine culture collected, so far growing gram-negative rods. Follow-up. Remains afebrile. 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 Moderate spinal canal stenosis L3-4. Mild degenerative stenosis at T9-10, T10-11. Bilateral lower extremity weakness, he also notes worse numbness than usual. Pain. Status: Acute (6) Alkaline phosphatase elevation: Status: Acute Attestations Medical Necessity Statement*: Continue admission for assessment management of complicated UTI with multidrug-resistant organism. Coding Level of Care Code Acute Mobile Paramedical Examiner for [facility] Diagnoses UTI (urinary tract infection) N39.0 Generalized weakness R53.1 Fever R50.9 Hospice care patient Z51.5 Leg weakness, bilateral R29.898 Alkaline phosphatase elevation R74.8
--- NOTE | 2020-05-28 18:44 | PC.NURSE ---
shift summary no changes this shift.
[2020-05-28] MEDS: ipratropium-albuterol 3 mL Neb 2.5 ML INHALATION (19:47)
[2020-05-28] MEDS: finasteride 5 mg Tablet PO (20:11)
[2020-05-28] MEDS: ALPRAZolam 0.5 mg Tablet PO (20:11)
[2020-05-29] VITALS (12 sets, daily range): BP systolic 94–125; BP diastolic 57–70; PULSE 77–136; RESP 16–19; TEMP 36.7–38.2; O2SAT 93–99
[2020-05-29] MEDS: heparin 5,000 unit/mL INJ 1 mL 5000 UNIT SUBCUT ×3 (03:58→20:23)
[2020-05-29] MEDS: D5-NS 0.45% + KCL 20 mEq 20 MEQ/1,000 ML BAG 100 MEQ IV (03:58)
[2020-05-29 05:45] LABS: Basophils % 0.4 %; Eosinophils # 0.4 10^3/uL (0.0-0.8); Eosinophils % 5.3 %; Hemoglobin 9.6 g/dL (11.7-16.6); Lymphocytes # 1.2 10^3/uL (0.8-4.8); Mean Corpuscular Hemoglobin 26.7 pg (28.0-34.0); Mean Corpuscular Volume 89.1 fL (80-94); Mean Platelet Volume 9.6 fL (7.4-10.4); Monocytes # 0.9 10^3/uL (0.2-0.9); Monocytes % 11.3 %; Neutrophils # 5.64 10^3/uL (1.8-7.7); Neutrophils % 68.5 %; Nucleated Red Blood Cells % 0 %; Platelet Count 225 10^3/cmm (130-400); Red Blood Count 3.59 10^6/uL (4.1-5.3); Red Cell Distribution Width 14.9 % (12.1-15.1); White Blood Count 8.2 10^3/uL (4.0-10.0)
[2020-05-29 06:05] LABS: Alanine Aminotransferase 26 U/L (0-41); Albumin Level 2.7 g/dL (3.5-5.2); Alkaline Phosphatase 244 IU/L (40-130); Anion Gap 12.8 (5-19); Aspartate Amino Transferase 11 U/L (0-40); Blood Urea Nitrogen 23 mg/dL (8-23); Calcium 9.5 mg/dL (8.5-10.5); Carbon Dioxide 30 mmol/L (22-29); Chloride 99 mmol/L (98-107); Globulin 3.1 g/dL (1.3-4.6); Glucose 171 mg/dL (65-115); Osmolality Calculated 294 mOsm/kg (285-295); Potassium 3.8 mmol/L (3.5-5.1); Sodium 138 mmol/L (136-145); Total Bilirubin 0.2 mg/dL (0.15-1.2); Total Protein 5.8 g/dL (6.6-8.7)
[2020-05-29] MEDS: famotidine 20 mg Tablet PO ×2 (08:10→18:30)
[2020-05-29] MEDS: aspirin 81 mg EC Tablet PO (08:10)
[2020-05-29] MEDS: FUROsemide 40 mg Tablet PO (08:11)
[2020-05-29] MEDS: gabapentin 100 mg Capsule PO ×3 (08:11→22:22)
[2020-05-29] MEDS: metoprolol tartrate 25 mg Tablet 12.5 MG PO ×2 (08:12→18:31)
[2020-05-29] MEDS: HYDROcodone-acetaminophen 5-325 mg Tablet 1 TAB PO ×2 (08:13→15:37)
[2020-05-29] MEDS: tamsulosin 0.4 mg Capsule PO (08:13)
[2020-05-29] MEDS: sertraline 50 mg Tablet 25 MG PO (08:13)
--- NOTE | 2020-05-29 09:05 | PC.SOCIAL ---
IMM Page 2 of IMM explained to patient. Initialed, dated, and timed and placed in chart. Copy provided to patient.
[2020-05-29] MEDS: ipratropium-albuterol 3 mL Neb 2.5 ML INHALATION ×3 (09:25→20:32)
[2020-05-29 09:38] LABS: Quest SARS-CoV-2 RNA NOT DETECTED (NOT DETECTED)
--- NOTE | 2020-05-29 11:34 | PM.PN ---
Subjective Subjective: Interval history: He states he is feeling achy all over. Denies any specific location of pain. His breathing is comfortable. No abdominal pain. Vitals/I&O/Wt Last Vital Signs Temp 98.3 F 05/29/20 08:00 Pulse 88 05/29/20 09:34 Resp 18 05/29/20 09:31 BP 100/64 05/29/20 08:00 Pulse Ox 96 05/29/20 09:31 05/28/20 05/29/20 05/29/20 22:59 06:59 14:59 Intake Total 1580 / 3380 926.667 / 4306.667 240 / 240 Output Total 1400 / 2600 1650 / 4250 1000 / 1000 Balance 180 / 780 -723.333 / 56.667 -760 / -760 Weight last 48 hrs Weight 90.083 kg Weight 88.904 kg Physical Exam Const: COMMON NORMALS: no acute distress and patient oriented x3 GENERAL APPEARANCE: frail appearing OTHER: Reclined up in bed. HENMT: COMMON NORMALS: oropharynx normal Neck/C-Spine: COMMON NORMALS: no JVD Resp: COMMON NORMALS: normal respiratory effort and clear to auscultation bilaterally AUSCULTATION: clear to auscultation bilaterally Cardio: COMMON NORMALS: no JVD, regular rhythm, S1 normal heart sound present, S2 normal heart sound present and No murmurs present (Cardio) RHYTHM: regular rhythm HEART SOUNDS: S1 normal heart sound present and S2 normal heart sound present GI: COMMON NORMALS: Normal to inspection, nondistended, normoactive bowel sounds present, Soft to palpation and non-tender PALPATION: Yes Soft to palpation Extremity: COMMON NORMALS: no joint enlargement and no pedal edema Neuro: COMMON NORMALS: patient oriented x3 and moves all extremities Skin: COMMON NORMALS: no rashes or lesions noted GENERAL SKIN EXAM: no rashes or lesions noted Urinary Catheter Management^: Drake: Cath Placed During This Visit: no Reason for Continuing Indwelling Catheter: Chronic Indwelling Urinary Catheter on Admission Data : 05/29/20 05:30 05/29/20 05:30 Micro: Microbiology 05/26/20 14:11 Urine Culture - Final Urine,Clean Catch Escherichia coli esbl A&P Assessment and plan (1) UTI (urinary tract infection): Continue IV antibiotic today and tomorrow, with tentative discharge tomorrow. Complicated UTI, ESBL E. coli, 70-80,000. Given he was symptomatic, responding to treatment, I believe this is an actual infection. His leukocytosis has resolved. Possible sepsis resolved. No recurrence of fever. He is feeling better. He does have a chronic Drake catheter. History of retention is reported. Started on Proscar. Continue Flomax. Follow-up with urology in office for weaning trial. Status: Acute (2) Generalized weakness: Improving. Treat UTI. Possible pneumonitis, although he denies more cough than usual, more shortness of breath than usual. He is at baseline on 3 L oxygen by nasal cannula. He is on hospice care. He is agreeable for admission only for additional diagnostic measures and antibiotic. He does not want aggressive measures in case of severe illness, and no CPR in case of cardiopulmonary arrest. Status: Acute (3) Fever: Pending PCR test for coronavirus. Treat UTI. Blood cultures collected. Urine culture collected, so far growing gram-negative rods. Follow-up. Remains afebrile. 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 Moderate spinal canal stenosis L3-4. Mild degenerative stenosis at T9-10, T10-11. Bilateral lower extremity weakness, he also notes worse numbness than usual. Pain. Status: Acute (6) Alkaline phosphatase elevation: Status: Acute Attestations Medical Necessity Statement*: Continue admission for management of complicated ESBL UTI with tentative discharge tomorrow. Coding Level of Care Code Acute Economics Professor for [facility] Diagnoses UTI (urinary tract infection) N39.0 Generalized weakness R53.1 Fever R50.9 Hospice care patient Z51.5 Leg weakness, bilateral R29.898 Alkaline phosphatase elevation R74.8
[2020-05-29] MEDS: acetaminophen 325 mg Tablet 650 MG PO ×2 (12:19→18:31)
--- NOTE | 2020-05-29 15:57 | XR_ITS ---
WS: [id number] Exam: XR chest 1V portable [id number] Date/Time of Exam: 05/29/2020 4:51 PM Reason For Exam: crackles Comparison 05/26/2020. The lungs are clear and fully expanded. Chronic elevation of the right diaphragm. Normal cardiomedias tinal structures and bony elements. Old right clavicle fracture. XR/XR chest 1V portable [id number] IMPRESSION: 1. No acute cardiopulmonary finding. 2. Chronic elevation of the right diaphragm.
--- NOTE | 2020-05-29 16:03 | ECG_ITS ---
[facility] Test Date: 2020-05-29 Pat Name: Vladimir Farnsworth Department: Room: 250 Gender: Male Plastic Surgery Specialist: : 1940 Requested By: David Allen Order Number: [id number] Maddie MD: Amina Nelson M.D. Measurements Intervals [place] Rate: 139 P: 75 [place]: 152 QRS: 119 QRSD: 102 T: 29 QT: 356 QTc: 542 Interpretive Statements SINUS TACHYCARDIA POSSIBLE RIGHT VENTRICULAR HYPERTROPHY [SOME/ALL OF: PROMINENT R IN V1, LATE TRANSITION, RAD, MYKE, SSS] NONSPECIFIC ST ELEVATION [0.05+ mV ST ELEVATION] Compared to ECG 04/02/2020 02:40:59 ST (T wave) deviation now present Sinus rhythm no longer present Incomplete right bundle-branch block no longer present Electronically Signed On 05-29-2020 22:01:43 SOCIAL AND HUMAN SERVICES ASSISTANT by Amina Nelson M.D. [id number]
[2020-05-29 17:38] LABS: Troponin(5th) Baseline 70 ng/L (0-15)
--- NOTE | 2020-05-29 18:03 | ECG_ITS ---
[facility] Test Date: 2020-05-29 Pat Name: Vladimir Farnsworth Department: Room: 250 Gender: Male Record Changer Assembler: : 1940 Requested By: David Allen Order Number: [id number] Maddie MD: Amina Nelson M.D. Measurements Intervals [place] Rate: 136 P: 66 [place]: 154 QRS: 118 QRSD: 99 T: 44 QT: 364 QTc: 550 Interpretive Statements SINUS TACHYCARDIA POSSIBLE RIGHT VENTRICULAR HYPERTROPHY [SOME/ALL OF: PROMINENT R IN V1, LATE TRANSITION, RAD, MYKE, SSS] NONSPECIFIC ST ELEVATION [0.05+ mV ST ELEVATION] Compared to ECG 05/29/2020 16:23:26 No significant changes Electronically Signed On 05-29-2020 22:03:55 NET LEAD ARCHITECT by Amina Nelson M.D. [id number]
[2020-05-29 18:48] LABS: Basophils % 0.2 %; Eosinophils % 0.1 %; Hematocrit 34.5 % (42.0-52.0); Hemoglobin 10.5 g/dL (11.7-16.6); Lymphocytes # 0.5 10^3/uL (0.8-4.8); Lymphocytes % 2.7 %; Mean Corpuscular HGB Conc 30.4 g/dL (30.0-36.0); Mean Corpuscular Hemoglobin 26.4 pg (28.0-34.0); Mean Corpuscular Volume 86.9 fL (80-94); Mean Platelet Volume 9.8 fL (7.4-10.4); Monocytes # 1.3 10^3/uL (0.2-0.9); Neutrophils # 14.54 10^3/uL (1.8-7.7); Neutrophils % 88.5 %; Nucleated Red Blood Cells % 0 %; Platelet Count 274 10^3/cmm (130-400); Red Blood Count 3.97 10^6/uL (4.1-5.3); Red Cell Distribution Width 14.9 % (12.1-15.1); White Blood Count 16.4 10^3/uL (4.0-10.0)
[2020-05-29 18:56] LABS: Troponin 5 2HR 72.31 ng/L (0-15); Troponin 5 2HR Delta 2.31 ABS# (0-10)
--- NOTE | 2020-05-29 19:01 | PC.NURSE ---
SHIFT SUMMARY AFTER LUNCH PT BEGAN TO FELL BAD AT ABOUT 1530 PT ASKED FOR TYLENOL FOR A HEADACHE AND COMPLAINED OF EAR PAIN WELL. PT TOOK TYLENOL AND TEMP WAS TAKEN AUXILIARY DUE TO PT FEELING WARM. TEMP WAS 101.4, NOTIFIED, AFTER 30 MIN TEMP WAS TAKEN AGAIN AND IT WAS 100.6. PT WAS STILL IN PAIN SO PT RECEIVED HYDROCODONE AT 1800. HEART RATE HAS BEEN 130'S-140'2 SINCE 1530 WELL, DR MARTINEZ IS AWARE. NO OTHER CHANGES AT THIS TIME.
[2020-05-29 19:02] LABS: Alanine Aminotransferase 29 U/L (0-41); Albumin Level 3.3 g/dL (3.5-5.2); Alkaline Phosphatase 283 IU/L (40-130); Aspartate Amino Transferase 16 U/L (0-40); Blood Urea Nitrogen 23 mg/dL (8-23); Calcium 9.9 mg/dL (8.5-10.5); Carbon Dioxide 31 mmol/L (22-29); Chloride 95 mmol/L (98-107); Globulin 3.3 g/dL (1.3-4.6); Glucose 268 mg/dL (65-115); Osmolality Calculated 297 mOsm/kg (285-295); Sodium 137 mmol/L (136-145); Total Bilirubin 0.2 mg/dL (0.15-1.2); Total Protein 6.6 g/dL (6.6-8.7)
[2020-05-29 19:16] LABS: Influenza B by IFA Negative (Negative)
[2020-05-29 19:18] LABS: Influenza A by IFA Negative (Negative)
[2020-05-29] MEDS: vancomycin 1,000 MG in sodium chloride 0.9% 250 ML 250 MG IV (22:03)
--- NOTE | 2020-05-29 22:03 | ECG_ITS ---
[facility] Test Date: 2020-05-29 Pat Name: Vladimir Farnsworth Department: Room: 250 Gender: Male [place] Leverman: : 1940 Requested By: David Allen Order Number: [id number] Maddie MD: Bhavya Jimenes M.D. Measurements Intervals [place] Rate: 99 P: 42 [place]: 166 QRS: 82 QRSD: 98 T: 32 QT: 313 QTc: 402 Interpretive Statements SINUS RHYTHM POSSIBLE ANTERIOR MYOCARDIAL INFARCTION, INDETERMINATE AGE PROBABLE INFERIOR MYOCARDIAL INFARCTION, INDETERMINATE AGE Compared to ECG 05/29/2020 17:42:24 Myocardial infarct finding now present Sinus tachycardia no longer present Atrial abnormality no longer present ST (T wave) deviation no longer present Electronically Signed On 05-30-2020 13:26:24 WINCH STRIPPER by Bhavya Jimenes M.D. [id number]
[2020-05-29] MEDS: finasteride 5 mg Tablet PO (22:22)
[2020-05-30] VITALS (12 sets, daily range): BP systolic 104–123; BP diastolic 55–76; PULSE 90–104; RESP 16–18; TEMP 36.7–37.3; O2SAT 95–98
[2020-05-30] MEDS: HYDROcodone-acetaminophen 5-325 mg Tablet 1 TAB PO ×4 (00:07→21:30)
[2020-05-30] MEDS: D5-NS 0.45% + KCL 20 mEq 20 MEQ/1,000 ML BAG 100 MEQ IV ×2 (00:11→18:18)
[2020-05-30] MEDS: heparin 5,000 unit/mL INJ 1 mL 5000 UNIT SUBCUT ×3 (04:37→19:33)
--- NOTE | 2020-05-30 06:14 | PC.NURSE ---
Patient had complaints of pain during night. Patient was unable to elaborate on the specific type of pain when asked. Patient was offered ordered morphine but declined stating that he did not want to take that. He expressed that morphine was bad to take. Patient informed that fire control system installer hospitalist would be contacted for alternate pain management. Patient called nurse into room shortly after and again expressed his pain rating it 7/10. Ordered morphine was again offered for pain control but patient again refused morphine and expressed that he wanted hydrocodone. rn call center hospitalist contacted and informed of patients pain and his refusal of ordered morphine along with his current labs. rn call center hospitalist ordered hold on current morphine order and restart of current hydrocodone order.
[2020-05-30 06:21] LABS: Basophils % 0.2 %; Eosinophils # 0.1 10^3/uL (0.0-0.8); Eosinophils % 0.5 %; Hematocrit 31.2 % (42.0-52.0); Hemoglobin 9.6 g/dL (11.7-16.6); Lymphocytes % 7.7 %; Mean Corpuscular HGB Conc 30.8 g/dL (30.0-36.0); Mean Corpuscular Hemoglobin 26.3 pg (28.0-34.0); Mean Corpuscular Volume 85.5 fL (80-94); Mean Platelet Volume 10.3 fL (7.4-10.4); Monocytes # 1.7 10^3/uL (0.2-0.9); Monocytes % 12.9 %; Neutrophils % 78.2 %; Nucleated Red Blood Cells % 0 %; Platelet Count 268 10^3/cmm (130-400); Red Blood Count 3.65 10^6/uL (4.1-5.3); Red Cell Distribution Width 14.9 % (12.1-15.1); White Blood Count 12.9 10^3/uL (4.0-10.0)
[2020-05-30 06:34] LABS: Alanine Aminotransferase 27 U/L (0-41); Alkaline Phosphatase 267 IU/L (40-130); Anion Gap 11.8 (5-19); Aspartate Amino Transferase 20 U/L (0-40); Blood Urea Nitrogen 21 mg/dL (8-23); Calcium 9.6 mg/dL (8.5-10.5); Carbon Dioxide 33 mmol/L (22-29); Chloride 96 mmol/L (98-107); Glucose 200 mg/dL (65-115); Osmolality Calculated 293 mOsm/kg (285-295); Potassium 3.8 mmol/L (3.5-5.1); Sodium 137 mmol/L (136-145); Total Bilirubin 0.3 mg/dL (0.15-1.2)
[2020-05-30] MEDS: tamsulosin 0.4 mg Capsule PO (08:13)
[2020-05-30] MEDS: aspirin 81 mg EC Tablet PO (08:13)
[2020-05-30] MEDS: ALPRAZolam 0.5 mg Tablet PO ×2 (08:13→18:17)
[2020-05-30] MEDS: sertraline 50 mg Tablet 25 MG PO (08:13)
[2020-05-30] MEDS: famotidine 20 mg Tablet PO ×2 (08:13→18:16)
[2020-05-30] MEDS: gabapentin 100 mg Capsule PO ×3 (08:13→21:32)
[2020-05-30] MEDS: FUROsemide 40 mg Tablet PO (08:14)
[2020-05-30] MEDS: ondansetron 2 mg/ML SDV 2 mL 4 MG IVP (08:14)
[2020-05-30] MEDS: metoprolol tartrate 25 mg Tablet 12.5 MG PO ×2 (08:14→18:18)
[2020-05-30] MEDS: ipratropium-albuterol 3 mL Neb 2.5 ML INHALATION ×3 (08:56→20:07)
--- NOTE | 2020-05-30 16:29 | PM.PN ---
Subjective Subjective: Interval history: He feels today he is doing a little bit better. He states he is coughing. He states on occasion happens to cough with food or drink. Vitals/I&O/Wt Last Vital Signs Temp 98.6 F 05/30/20 12:00 Pulse 94 05/30/20 15:17 Resp 18 05/30/20 15:08 BP 104/58 05/30/20 12:00 Pulse Ox 96 05/30/20 15:08 05/30/20 05/30/20 05/30/20 06:59 14:59 22:59 Intake Total 690 / 690 Output Total 700 / 4000 1300 / 1300 Balance -700 / -2080 -610 / -610 Weight last 48 hrs Weight 89.953 kg Weight 90.083 kg Physical Exam Const: COMMON NORMALS: no acute distress and patient oriented x3 GENERAL APPEARANCE: frail appearing OTHER: Sitting up. HENMT: COMMON NORMALS: oropharynx normal Neck/C-Spine: COMMON NORMALS: no JVD Resp: COMMON NORMALS: normal respiratory effort AUSCULTATION: rhonchi and wheezes Cardio: COMMON NORMALS: no JVD, regular rhythm, S1 normal heart sound present, S2 normal heart sound present and No murmurs present (Cardio) RHYTHM: regular rhythm HEART SOUNDS: S1 normal heart sound present and S2 normal heart sound present GI: COMMON NORMALS: Normal to inspection, nondistended, normoactive bowel sounds present, Soft to palpation and non-tender PALPATION: Yes Soft to palpation Extremity: COMMON NORMALS: no joint enlargement and no pedal edema Neuro: COMMON NORMALS: patient oriented x3 and moves all extremities Skin: COMMON NORMALS: no rashes or lesions noted GENERAL SKIN EXAM: no rashes or lesions noted Urinary Catheter Management^: Drake: Cath Placed During This Visit: no Reason for Continuing Indwelling Catheter: Chronic Indwelling Urinary Catheter on Admission Data : 05/30/20 05:28 05/30/20 05:28 Micro: Microbiology 05/30/20 08:26 MRSA Culture - Final Nose 05/29/20 16:40 Blood Culture - Preliminary Blood SPECIMEN COLLECTED 05/29/20 16:35 Blood Culture - Preliminary Blood SPECIMEN COLLECTED A&P Assessment and plan (1) Fever: Developed acute sepsis on evening of 05/29, with leukocytosis up to 16,000, sinus tachycardia 130s. Fever 100.8. This while on Primaxin. Alternative explanations were considered, however, most likely had an episode of aspiration. Today is having some rhonchi, wheezing, coughing. He does not recall aspirating. Was not witnessed by nursing staff. He had a drink standing by the bedside. He does state occasionally he coughs with food or drink. Requested speech therapy evaluation. Yesterday broaden antibiotic with vancomycin. Requested MRSA PCR. Blood cultures were repeated. Alternative explanations were considered with possible serotonin syndrome. He stated had discomfort in both ears the same time, with tachycardia, fever, general malaise. He is on sertraline, and received several doses of hydrocodone yesterday. Hydrocodone is discontinued at this time. Symptoms appear to have improved. Rapid flu was checked and was negative. Negative PCR test for coronavirus. Troponin series assessed as well, with moderate elevation, 70-72-75, but with negative delta. He has had no chest pain. MRSA PCR is negative. Will discontinue vancomycin. Continue Primaxin for now. Reassess tomorrow. Status: Acute (2) UTI (urinary tract infection): Complicated UTI, ESBL E. coli, 70-80,000. Primaxin. He does have a chronic Drake catheter. History of retention is reported. Started on Proscar. Continue Flomax. Follow-up with urology in office for weaning trial. Status: Acute (3) Generalized weakness: Improving. Suffered setback yesterday with new sepsis. Today is feeling little bit better. Continue attempts to mobilize with physical therapy. He is on hospice care. He is agreeable for admission only for additional diagnostic measures and antibiotic. He does not want aggressive measures in case of severe illness, and no CPR in case of cardiopulmonary arrest. 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 Moderate spinal canal stenosis L3-4. Mild degenerative stenosis at T9-10, T10-11. Bilateral lower extremity weakness, he also notes worse numbness than usual. Pain. Status: Acute (6) Alkaline phosphatase elevation: Status: Acute Attestations Medical Necessity Statement*: Continue admission for assessment management of sepsis. Coding Level of Care Code Acute Battery Charger Conveyor Line for [facility] Jacquie Diagnoses Fever R50.9 UTI (urinary tract infection) N39.0 Generalized weakness R53.1 Hospice care patient Z51.5 Leg weakness, bilateral R29.898 Alkaline phosphatase elevation R74.8
[2020-05-30] MEDS: finasteride 5 mg Tablet PO (21:32)
[2020-05-31] VITALS (10 sets, daily range): BP systolic 98–134; BP diastolic 56–86; PULSE 84–99; RESP 16–18; TEMP 36.3–36.9; O2SAT 88–99
[2020-05-31] MEDS: heparin 5,000 unit/mL INJ 1 mL 5000 UNIT SUBCUT ×3 (03:40→20:04)
[2020-05-31 05:38] LABS: Basophils % 0.3 %; Eosinophils # 0.3 10^3/uL (0.0-0.8); Eosinophils % 3.2 %; Hematocrit 28.9 % (42.0-52.0); Hemoglobin 8.8 g/dL (11.7-16.6); Lymphocytes # 1.4 10^3/uL (0.8-4.8); Lymphocytes % 13.9 %; Mean Corpuscular HGB Conc 30.4 g/dL (30.0-36.0); Mean Corpuscular Hemoglobin 26.3 pg (28.0-34.0); Mean Corpuscular Volume 86.5 fL (80-94); Mean Platelet Volume 10.3 fL (7.4-10.4); Monocytes # 1.3 10^3/uL (0.2-0.9); Monocytes % 12.6 %; Neutrophils # 6.88 10^3/uL (1.8-7.7); Neutrophils % 69.1 %; Nucleated Red Blood Cells % 0 %; Platelet Count 272 10^3/cmm (130-400); Red Blood Count 3.34 10^6/uL (4.1-5.3); Red Cell Distribution Width 14.9 % (12.1-15.1)
[2020-05-31] MEDS: D5-NS 0.45% + KCL 20 mEq 20 MEQ/1,000 ML BAG 100 MEQ IV ×2 (05:55→17:41)
[2020-05-31 06:10] LABS: Alanine Aminotransferase 20 U/L (0-41); Albumin Level 2.9 g/dL (3.5-5.2); Alkaline Phosphatase 222 IU/L (40-130); Anion Gap 10.7 (5-19); Aspartate Amino Transferase 13 U/L (0-40); Blood Urea Nitrogen 26 mg/dL (8-23); Calcium 9.4 mg/dL (8.5-10.5); Carbon Dioxide 35 mmol/L (22-29); Chloride 97 mmol/L (98-107); Glucose 202 mg/dL (65-115); Osmolality Calculated 297 mOsm/kg (285-295); Potassium 4.7 mmol/L (3.5-5.1); Sodium 138 mmol/L (136-145); Total Bilirubin 0.2 mg/dL (0.15-1.2); Total Protein 5.9 g/dL (6.6-8.7)
[2020-05-31] MEDS: FUROsemide 40 mg Tablet PO (08:52)
[2020-05-31] MEDS: famotidine 20 mg Tablet PO ×2 (08:52→17:40)
[2020-05-31] MEDS: tamsulosin 0.4 mg Capsule PO (08:52)
[2020-05-31] MEDS: gabapentin 100 mg Capsule PO ×3 (08:52→20:04)
[2020-05-31] MEDS: HYDROcodone-acetaminophen 5-325 mg Tablet 1 TAB PO ×3 (08:52→22:28)
[2020-05-31] MEDS: metoprolol tartrate 25 mg Tablet 12.5 MG PO (08:52)
[2020-05-31] MEDS: aspirin 81 mg EC Tablet PO (08:53)
[2020-05-31] MEDS: sertraline 50 mg Tablet 25 MG PO (08:53)
[2020-05-31] MEDS: ipratropium-albuterol 3 mL Neb 2.5 ML INHALATION ×3 (11:46→21:00)
--- NOTE | 2020-05-31 13:28 | P.DS_ITS ---
Discharge Providers Date of Admission: 05/26/20 16:00 Date of Discharge: May 31, 2020 Attending Provider at Admission: David Allen Attending Provider at Discharge: David Allen Primary Care Provider: Erik Adkins DO Diagnoses at Discharge Discharge Diagnosis (1) Fever: Status: Acute (2) UTI (urinary tract infection): Status: Acute Permanent problem details: ESBL E. coli, and small colony of enterococcus, without bacteremia, possibly colonizer (3) Generalized weakness: Status: Acute (4) Hospice care patient: Status: Acute (5) Leg weakness, bilateral: Status: Acute Permanent problem details: Severe degenerative changes in the spine, including moderate spinal canal stenosis L3-L4. (6) Alkaline phosphatase elevation: Status: Acute (7) Cerumen impaction: Status: Acute Permanent problem details: L ear Reason for Visit Reason for Visit: UTI Hospital Course Hospital Course 80-year-old gentleman with history of CHF, chronic kidney disease, Oxygen dependent COPD, chronically on 3 L, CAD, frequent UTI, chronic indwelling Borja catheter, who with history of urinary retention, HTN, chronic pain syndrome, recently admitted for respite care at [facility], on returning home noted to have generalized weakness, dysuria, and was complaining of weakness in his legs. On presentation noted with leukocytosis, also reported fever measured by hospice nurse prior to presentation. Started on treatment for urinary tract infection with Primaxin due to history of ESBL in urine. Given possible sepsis was continued on treatment, with ESBL E. coli growing in urine, 70-80,000 CFU. COVID-19 was tested by PCR as well as rapid antigen and was negative. Due to pain, weakness in his back, thoracic and lumbar spine CT was obtained, with finding of significant multilevel degenerative changes, as well as with moderate spinal canal stenosis L3-L4. This was discussed with him and his daughter. Unfortunately with progressive degenerative changes ambulation and transfers may become an issue. He otherwise was improving, sepsis had resolved, weakness improved, however, had again transient worsening again with sepsis on 05/29, with leukocytosis up to 16,000, fever 100.8, sinus tachycardia 130s. Subsequently with noted wheezing, crackles in the lungs, and unfortunately most likely had an aspiration event. Unfortunately he is at high risk of aspiration. We did get speech therapy to assess him. Discussed with his daughter. Would recommend empirically to thicken liquids to nectar thick, maintain strict aspiration precautions. Sepsis again has resolved. He is doing much better. He has minimal wheezing, will give him a course of prednisone. Continue albuterol, breathing treatments. Due to chronic Borja catheter, while already on Flomax, with history of recurrent urinary retention, is also started on Proscar. Please reevaluate for voiding trial, and he is referred to urology as well. Please also reassess regarding cerumen impaction in the left ear. Discussed with his daughter. Please see full labs, imaging and notes for details. Not hesitate to contact with questions. Physical Exam Const: COMMON NORMALS: no acute distress and patient oriented x3 GENERAL APPEARANCE: frail appearing OTHER: Sitting up. HENMT: COMMON NORMALS: oropharynx normal OTHER: L ear cerumen impaction. R ear visualized normal TM. Also some cerumen. Neck/C-Spine: COMMON NORMALS: no JVD Resp: COMMON NORMALS: normal respiratory effort AUSCULTATION: rhonchi and wheezes (mild) Cardio: COMMON NORMALS: no JVD, regular rhythm, S1 normal heart sound present, S2 normal heart sound present and No murmurs present (Cardio) RHYTHM: regular rhythm HEART SOUNDS: S1 normal heart sound present and S2 normal heart sound present GI: COMMON NORMALS: Normal to inspection, nondistended, normoactive bowel sounds present, Soft to palpation and non-tender PALPATION: Yes Soft to palpation Extremity: COMMON NORMALS: no joint enlargement and no pedal edema Neuro: COMMON NORMALS: patient oriented x3 and moves all extremities Skin: COMMON NORMALS: no rashes or lesions noted GENERAL SKIN EXAM: no rashes or lesions noted Urinary Catheter Management^: Borja: Cath Placed During This Visit: no Reason for Continuing Indwelling Catheter: Chronic Indwelling Urinary Catheter on Admission Discharge Data Data Completed and Pending: Completed Studies During Hospitalization Category Date Time Status CT lumbar spine w o con* 37798 Routi ne Cat Scan 05/26/20 18:[address] thoracic spin wo con* 61610 Rout ine Cat Scan 05/26/20 18:46 Completed XR chest 1V saniya ble 30070 Routine Exams 05/29/20 15:57 Completed XR chest 1V saniya ble 06001 Stat Exams 05/26/20 13:50 Completed Pending at discharge Category Date Time Status Blood Culture Sta t Lab 05/26/20 17:41 Results Blood Culture Sta t Lab 05/29/20 16:40 Results Complete Blood Co unt w/Auto AM LABS Lab 06/01/20 04:00 Ordered Complete Blood Co unt w/Auto AM LABS Lab 06/02/20 04:00 Ordered Comprehensive Met abolic Panel AM LA BS Lab 06/01/20 04:00 Ordered Comprehensive Met abolic Panel AM LA BS Lab 06/02/20 04:00 Ordered Vancomycin Trough Timed Lab 05/31/20 20:00 Ordered Labs from last 24 hours 05/31/20 05/31/20 04:18 04:18 WBC 10.0 RBC 3.34 L Hgb 8.8 L Hct 28.9 L MCV 86.5 MCH 26.3 L MCHC 30.4 RDW 14.9 Plt Count 272 MPV 10.3 Neut % (Auto) 69.1 Lymph % (Auto) 13.9 Waller % (Auto) 12.6 Eos % (Auto) 3.2 Baso % (Auto) 0.3 Neut # (Auto) 6.88 Lymph # (Auto) 1.4 Waller # (Auto) 1.3 H Eos # (Auto) 0.3 Baso # (Auto) 0.0 Nucleated RBC % (a uto) 0 Nucleated RBCs # 0.0 Sodium 138 Potassium 4.7 Chloride 97 L Carbon Dioxide 35 H Anion Gap 10.7 BUN 26 H Creatinine 1.4 H GFR Calculation Not Reportable Glucose 202 H Calculated Osmolal ity 297 H Calcium 9.4 Total Bilirubin 0.2 AST 13 ALT 20 Alkaline Phosphata se 222 H Total Protein 5.9 L Albumin 2.9 L Globulin 3.0 Vitals: Last Vital Signs Temp 97.7 F 05/31/20 10:43 Pulse 89 05/31/20 11:46 Resp 18 05/31/20 11:46 BP 124/84 05/31/20 10:43 Pulse Ox 95 05/31/20 11:46 Discharge Plan Discharge Patient Disposition: Hospice - Home Condition: Stable Prescriptions: New finasteride 5 mg Tablet 5 mg PO BEDTIME Qty: 30 RF: 0 prednisone 20 mg tablet See Rx Instructions .ROUTE .COMPLEX Qty: 20 RF: 0 Continued metoprolol tartrate 25 mg Tablet 12.5 mg PO BID Qty: 0 RF: 0 ipratropium-albuterol 0.5 mg-3 mg(2.5 mg base)/3 mL solution for nebulization 2.5 ml INHALATION Q4H PRN (Reason: Shortness Of Breath Or Wheezing) RF: 0 tamsulosin 0.4 mg Capsule 0.4 mg PO DAILY Qty: 30 RF: 0 alprazolam [Xanax] 0.5 mg Tablet 0.5 - 1 mg PO Q4H PRN (Reason: Anxiety) RF: 0 aspirin [Aspir-81] 81 mg Tablet,Delayed Release (Dr/Ec) 81 mg PO DAILY RF: 0 sertraline 25 mg tablet 25 mg PO DAILY RF: 0 furosemide [Lasix] 20 mg tablet 40 mg PO DAILY RF: 0 oxybutynin chloride 5 mg tablet 5 mg PO TID PRN (Reason: Bladder Spasms) RF: 0 ondansetron HCl 4 mg tablet 4 mg PO Q6H PRN (Reason: n/v) RF: 0 hydrocodone-acetaminophen 5-325 mg Tablet 1 tab PO Q6H PRN (Reason: Pain) Qty: 20 RF: 0 albuterol sulfate 2.5 mg /3 mL (0.083 %) Solution For Nebulization 2.5 mg INHALATION Q6H PRN (Reason: Shortness Of Breath) RF: 0 famotidine 20 mg Tablet 20 mg PO BID RF: 0 gabapentin 100 mg Tablet 100 mg PO TID RF: 0 Discontinued prednisone 20 mg Tablet See Taper mg PO DAILY Qty: 10 RF: 0 Discharge Orders: Discharge Order (Routine); Ordered 05/31/20 Ordered By: David Allen Referrals: Erik Adkins DO [Primary Care Provider] - ([facility] will call you Tuesday with an appointment to see Dr. Adkins within one week. If you don't hear from them please call [phone]) Villa Bustillos MD [Physician] - 2 weeks (Voiding trial, chronic borja, ESBL [facility] will call you Tuesday with an appintment. If you dont hear from them you can call [phone]) Discharge Diet: As Directed Discharge Activity: Increase activity as tolerated and Oxygen as instructed Patient Instructions: Borja Catheter Care, Aspiration Pneumonia (GEN), Lumbar Spinal Stenosis (GEN), Extended Spectrum Beta Lactamase (GEN), Degenerative Disc Disease (GEN) Activity Restrictions/Additional Instructions: Please maintain strict aspiration precautions as per speech therapy teaching, please thicken liquids to nectar thick consistency. Please discuss with your primary care doctor strategies for pain control due to severe degenerative changes in your back with spinal canal stenosis. Continue oxygen as needed 3L to maintain saturation 92% Discharge Attestations Time Spent in Discharge Care*: greater than 30 min Quality Metrics Clinical Quality Measures During this hospital stay, did patient experience: None Coding Level of Care Code Acute Ice Cream Vault Worker for Chg Fwd Diagnoses Fever R50.9 UTI (urinary tract infection) N39.0 Generalized weakness R53.1 Hospice care patient Z51.5 Leg weakness, bilateral R29.898 Alkaline phosphatase elevation R74.8 Cerumen impaction H61.20
--- NOTE | 2020-05-31 14:10 | DCPLANNER ---
Pg 2 of IM updated and reviewed with pt. He was being d/c'd today and doesn't believe he is ready to be d/c'd. He apologizes however engineering writer tells him this is not a problem at all and we will assist with the call as he struggles to hear. Assistance is provided. Copy of IM is left with pt.
[2020-05-31] MEDS: ALPRAZolam 0.5 mg Tablet PO ×2 (15:31→22:28)
--- NOTE | 2020-05-31 17:32 | ECG_ITS ---
[facility] Test Date: 2020-05-31 Pat Name: Vladimir Farnsworth Department: Room: 250 Gender: Male Retail Wireless Sales Consultant: YENIFER : 1940 Requested By: David Allen Order Number: [id number] Reading MD: Chuck Nunn M.D. Measurements Intervals [place] Rate: 117 P: AK: QRS: 105 QRSD: 89 T: 6 QT: 297 QTc: 415 Interpretive Statements ATRIAL FIBRILLATION WITH RAPID VENTRICULAR RESPONSE MARKED RIGHT AXIS DEVIATION [QRS AXIS > 100] Compared to ECG 05/29/2020 22:38:46 Right-axis deviation now present ST (T wave) deviation now present Sinus rhythm no longer present Myocardial infarct finding still present Electronically Signed On 06-01-2020 19:14:34 COMIC WRITER by Chuck Nunn M.D. [id number]
[2020-05-31] MEDS: metoprolol tartrate 1 mg/1 mL SDV 5 mL 5 MG IV (17:40)
[2020-05-31] MEDS: metoprolol tartrate 25 mg Tablet PO (17:40)
[2020-05-31] MEDS: finasteride 5 mg Tablet PO (20:04)
[2020-06-01] VITALS (8 sets, daily range): BP systolic 115–148; BP diastolic 61–78; PULSE 76–100; RESP 16–22; TEMP 36.6–36.9; O2SAT 94–99
[2020-06-01] MEDS: D5-NS 0.45% + KCL 20 mEq 20 MEQ/1,000 ML BAG 100 MEQ IV ×2 (04:55→16:37)
[2020-06-01] MEDS: heparin 5,000 unit/mL INJ 1 mL 5000 UNIT SUBCUT ×3 (04:55→20:01)
[2020-06-01 07:43] LABS: Basophils % 0.4 %; Eosinophils # 0.7 10^3/uL (0.0-0.8); Eosinophils % 6.9 %; Hematocrit 30.9 % (42.0-52.0); Hemoglobin 9.5 g/dL (11.7-16.6); Lymphocytes # 1.4 10^3/uL (0.8-4.8); Lymphocytes % 15.1 %; Mean Corpuscular HGB Conc 30.7 g/dL (30.0-36.0); Mean Corpuscular Hemoglobin 26.7 pg (28.0-34.0); Mean Corpuscular Volume 86.8 fL (80-94); Mean Platelet Volume 10.2 fL (7.4-10.4); Monocytes # 0.9 10^3/uL (0.2-0.9); Monocytes % 9.3 %; Neutrophils # 6.38 10^3/uL (1.8-7.7); Neutrophils % 67.3 %; Nucleated Red Blood Cells % 0 %; Platelet Count 299 10^3/cmm (130-400); Red Blood Count 3.56 10^6/uL (4.1-5.3); Red Cell Distribution Width 14.8 % (12.1-15.1); White Blood Count 9.5 10^3/uL (4.0-10.0)
[2020-06-01 08:16] LABS: Alanine Aminotransferase 16 U/L (0-41); Alkaline Phosphatase 208 IU/L (40-130); Anion Gap 12.1 (5-19); Aspartate Amino Transferase 13 U/L (0-40); Blood Urea Nitrogen 26 mg/dL (8-23); Calcium 9.7 mg/dL (8.5-10.5); Carbon Dioxide 35 mmol/L (22-29); Chloride 94 mmol/L (98-107); Glucose 189 mg/dL (65-115); Osmolality Calculated 294 mOsm/kg (285-295); Potassium 4.1 mmol/L (3.5-5.1); Sodium 137 mmol/L (136-145); Total Bilirubin 0.2 mg/dL (0.15-1.2)
--- NOTE | 2020-06-01 09:11 | ECG_ITS ---
[facility] Test Date: 2020-06-01 Pat Name: Vladimir Farnsworth Department: Room: 250 Gender: Male Financial Wellness Coach: : 1940 Requested By: David Allen Order Number: [id number] Maddie MD: Chuck Nunn M.D. Measurements Intervals [place] Rate: 104 P: 47 CA: 163 QRS: 101 QRSD: 103 T: -8 QT: 317 QTc: 418 Interpretive Statements SINUS TACHYCARDIA WITH OCCASIONAL SUPRAVENTRICULAR PREMATURE COMPLEXES MARKED RIGHT AXIS DEVIATION [QRS AXIS > 100] PROBABLE INFERIOR MYOCARDIAL INFARCTION [35 ms Q WAVE IN II/aVF], OF INDETERMINATE AGE Compared to ECG 05/31/2020 18:27:30 Atrial fibrillation no longer present ST (T wave) deviation no longer present Myocardial infarct finding still present Electronically Signed On 06-01-2020 19:04:25 STRIPER SPRAY GUN by Chuck Nunn M.D. [id number]
[2020-06-01] MEDS: metoprolol tartrate 25 mg Tablet PO ×2 (09:31→17:51)
[2020-06-01] MEDS: aspirin 81 mg EC Tablet PO (09:31)
[2020-06-01] MEDS: tamsulosin 0.4 mg Capsule PO (09:31)
[2020-06-01] MEDS: famotidine 20 mg Tablet PO ×2 (09:31→17:51)
[2020-06-01] MEDS: HYDROcodone-acetaminophen 5-325 mg Tablet 1 TAB PO ×2 (09:31→17:50)
[2020-06-01] MEDS: FUROsemide 40 mg Tablet PO (09:31)
[2020-06-01] MEDS: gabapentin 100 mg Capsule PO ×3 (09:31→20:01)
[2020-06-01 15:52] LABS: Troponin T (5th) Once 89 ng/L (0-15)
--- NOTE | 2020-06-01 16:28 | ECG_ITS ---
[facility] Test Date: 2020-06-01 Pat Name: Vladimir Farnsworth Department: Room: 250 Gender: Male Sales Representative Advertising: : 1940 Requested By: David Allen Order Number: [id number] Maddie MD: Chuck Nunn M.D. Measurements Intervals [place] Rate: 92 P: 78 VT: 163 QRS: 100 QRSD: 104 T: 7 QT: 325 QTc: 402 Interpretive Statements SINUS RHYTHM WITH MARKED SINUS ARRHYTHMIA BORDERLINE RIGHT AXIS DEVIATION [QRS AXIS > 90] Compared to ECG 06/01/2020 10:39:34 Sinus tachycardia no longer present Myocardial infarct finding no longer present Electronically Signed On 06-01-2020 18:52:04 WATER VALVE REPAIRER by Chuck Nunn M.D. [id number]
[2020-06-01] MEDS: clopidogrel 300 mg Tablet PO (16:37)
[2020-06-01] MEDS: ALPRAZolam 0.5 mg Tablet PO (17:55)
--- NOTE | 2020-06-01 18:57 | P.PN_ITS ---
Subjective Subjective: Interval history: States he is still aching all over. Does not feel good, however, denies chest pain, denies shortness of breath. No abdominal pain. No nausea or vomiting, no further diarrhea. Vitals/I&O/Wt Last Vital Signs Temp 98.1 F 06/01/20 15:38 Pulse 90 06/01/20 15:38 Resp 22 H 06/01/20 15:38 BP 115/61 06/01/20 15:38 Pulse Ox 94 06/01/20 15:38 06/01/20 06/01/20 06/01/20 06:59 14:59 22:59 Intake Total 1000 / 4220 1720 / 1720 Output Total 1800 / 4500 1800 / 1800 Balance -800 / -280 1720 / 1720 -1800 / -80 Weight last 48 hrs Weight 90.129 kg Weight 90.991 kg Physical Exam Const: COMMON NORMALS: no acute distress and patient oriented x3 GENERAL APPEARANCE: frail appearing OTHER: Sitting up in bed. HENMT: COMMON NORMALS: oropharynx normal Neck/C-Spine: COMMON NORMALS: no JVD Resp: COMMON NORMALS: normal respiratory effort AUSCULTATION: rhonchi and wheezes (mild) Cardio: COMMON NORMALS: no JVD, regular rhythm, S1 normal heart sound present, S2 normal heart sound present and No murmurs present (Cardio) RHYTHM: regular rhythm HEART SOUNDS: S1 normal heart sound present and S2 normal heart sound present GI: COMMON NORMALS: Normal to inspection, nondistended, normoactive bowel sounds present, Soft to palpation and non-tender PALPATION: Yes Soft to palpation Extremity: COMMON NORMALS: no joint enlargement and no pedal edema Neuro: COMMON NORMALS: patient oriented x3 and moves all extremities Skin: COMMON NORMALS: no rashes or lesions noted GENERAL SKIN EXAM: no rashes or lesions noted Urinary Catheter Management^: Drake: Cath Placed During This Visit: no Reason for Continuing Indwelling Catheter: Chronic Indwelling Urinary Catheter on Admission Data : 06/01/20 07:05 06/01/20 07:05 Micro: Microbiology 05/26/20 17:41 Blood Culture - Final Blood NO GROWTH AFTER 5 DAYS 05/26/20 14:00 Blood Culture - Final Blood NO GROWTH AFTER 5 DAYS A&P Assessment and plan (1) Paroxysmal atrial fibrillation with RVR: HR better. Consistently below 100. Continue metoprolol 25 mg twice a day. Blood pressures are stable. He is on aspirin. States that he has a history of A. fib, although I do not see it listed under past medical conditions. Not a good candidate for anticoagulation with elevated fall risk, severe degenerative changes of the spine, and leg weakness with attempts to mobilize. A. fib may be related to his recent infection, as well as aspiration now with m ild COPD exacerbation. Cardiac ischemia not entirely ruled out, however, less likely as below. We will also check TSH, magnesium. Potassium is normal. Status: Acute (2) Elevated troponin: His troponin appears chronically elevated, in a similar to levels back in March. May be related to atrial fibrillation. Possibly cardiac demand ischemia. He does not have chest pain. He does have chronic pain with pain all over which appears identical as noted during prior admission. Mild troponin elevation noted back in 2018, at which time he had a stress test and was evaluated by cardiology. Noted some scarring around the LAD territory. His symptoms were deemed noncardiac. I cannot entirely exclude cardiac ischemia given he did have some EKG changes, even possibly minimal transient ST elevation although poor quality EKG on 05/29; troponin elevation, although I suspect more likely demand ischemia due to sepsis. Discussed with patient. Considering overall goals of care, poor renal function and very poor functional status at this time would manage medically. Aspirin, Plavix. Statin. Continue beta-sushant. Status: Acute (3) Fever: Resolved. On admission sepsis secondary to urinary tract infection for which he underwent 5-day course of Primaxin. Subsequently sepsis after episode of aspiration. This has resolved. Currently COPD exacerbation which is mild with wheezing, baseline oxygen requirement. Sepsis resolved. Off antibiotics. Pending discharge for continued care with hospice. Rapid flu was checked and was negative. Negative PCR test for coronavirus. MRSA PCR is negative. Status: Acute (4) UTI (urinary tract infection): Complicated UTI, ESBL E. coli, 70-80,000. Primaxin. He does have a chronic Drake catheter. History of retention is reported. Started on Proscar. Continue Flomax. Follow-up with urology in office for weaning trial. Status: Acute (5) Generalized weakness: He is quite deconditioned, and has quite extensive degenerative changes in his spine with functional decline, difficulties with walking. All this has been discussed with him and his daughter. On multiple occasions we have offered for him to go to residential facility for rehabilitation. He has repeatedly stated that had given things consideration and repeatedly declined. Wants to continue hospice care at home. On presentation was agreeable for admission only for additional diagnostic measures and antibiotic. He does not want aggressive measures in case of severe illness, and no CPR in case of cardiopulmonary arrest. Status: Acute (6) Leg weakness, bilateral: CT lumbar and thoracic spine obtained, with severe degenerative spinal canal stenosis at L2-3. Moderate spinal canal stenosis L3-4. Mild degenerative stenosis at T9-10, T10-11. Bilateral lower extremity weakness, he also notes worse numbness than usual. Pain. He declined fdc placement for rehabilitation. Prefer to continue under hospice care. Status: Acute (7) Alkaline phosphatase elevation: Status: Acute (8) Cerumen impaction: Left ear, although some in the right ear as well. Status: Acute (9) COPD (chronic obstructive pulmonary disease): COPD with mild exacerbation following aspiration event. Wheezing bilaterally with baseline oxygen requirement. Prednisone. Nebs. Status: Chronic (10) Hospice care patient: Status: Acute Attestations Medical Necessity Statement*: Pending discharge for continuation of hospice care at home. Coding Level of Care Code Acute Assistant Manager Bilingual for g Fwd Diagnoses Paroxysmal atrial fibrillation with RVR I48.0 Elevated troponin R77.8 Fever R50.9 UTI (urinary tract infection) N39.0 Generalized weakness R53.1 Leg weakness, bilateral R29.898 Alkaline phosphatase elevation R74.8 Cerumen impaction H61.20 COPD (chronic obstructive pulmonary disease) J44.9 Hospice care patient Z51.5
[2020-06-01 19:06] LABS: Troponin T (5th) Once 89 ng/L (0-15)
[2020-06-01] MEDS: predniSONE 20 mg Tablet 40 MG PO (20:00)
[2020-06-01] MEDS: atorvastatin 40 mg Tablet PO (20:01)
[2020-06-01] MEDS: finasteride 5 mg Tablet PO (20:01)
[2020-06-01 20:12] LABS: Magnesium 1.3 mg/dL (1.7-2.3); Thyroid Stimulating Hormone 3.25 uIU/mL (0.27-4.20)
[2020-06-02] VITALS (10 sets, daily range): BP systolic 115–137; BP diastolic 72–83; PULSE 77–102; RESP 15–22; TEMP 36.4–36.8; O2SAT 94–100
[2020-06-02] MEDS: heparin 5,000 unit/mL INJ 1 mL 5000 UNIT SUBCUT ×3 (04:34→19:24)
[2020-06-02] MEDS: HYDROcodone-acetaminophen 5-325 mg Tablet 1 TAB PO ×3 (04:59→22:37)
[2020-06-02 05:26] LABS: Basophils % 0.2 %; Eosinophils # 0.1 10^3/uL (0.0-0.8); Eosinophils % 0.6 %; Hematocrit 32.7 % (42.0-52.0); Hemoglobin 9.8 g/dL (11.7-16.6); Lymphocytes # 0.6 10^3/uL (0.8-4.8); Mean Corpuscular Hemoglobin 25.7 pg (28.0-34.0); Mean Corpuscular Volume 85.6 fL (80-94); Mean Platelet Volume 9.5 fL (7.4-10.4); Monocytes # 0.1 10^3/uL (0.2-0.9); Monocytes % 1.7 %; Neutrophils % 89.1 %; Nucleated Red Blood Cells % 0 %; Platelet Count 329 10^3/cmm (130-400); Red Blood Count 3.82 10^6/uL (4.1-5.3); Red Cell Distribution Width 14.5 % (12.1-15.1); White Blood Count 8.4 10^3/uL (4.0-10.0)
[2020-06-02 06:12] LABS: Alanine Aminotransferase 17 U/L (0-41); Albumin Level 3.2 g/dL (3.5-5.2); Alkaline Phosphatase 211 IU/L (40-130); Anion Gap 12.7 (5-19); Aspartate Amino Transferase 12 U/L (0-40); Blood Urea Nitrogen 28 mg/dL (8-23); Calcium 9.8 mg/dL (8.5-10.5); Carbon Dioxide 33 mmol/L (22-29); Chloride 92 mmol/L (98-107); Globulin 3.1 g/dL (1.3-4.6); Glucose 288 mg/dL (65-115); Osmolality Calculated 292 mOsm/kg (285-295); Potassium 4.7 mmol/L (3.5-5.1); Sodium 133 mmol/L (136-145); Total Bilirubin 0.2 mg/dL (0.15-1.2); Total Protein 6.3 g/dL (6.6-8.7)
[2020-06-02] MEDS: ipratropium-albuterol 3 mL Neb 2.5 ML INHALATION ×2 (08:54→19:41)
[2020-06-02] MEDS: aspirin 81 mg EC Tablet PO (09:20)
[2020-06-02] MEDS: famotidine 20 mg Tablet PO ×2 (09:20→17:58)
[2020-06-02] MEDS: tamsulosin 0.4 mg Capsule PO (09:21)
[2020-06-02] MEDS: gabapentin 100 mg Capsule PO ×3 (09:21→19:41)
[2020-06-02] MEDS: clopidogrel 75 mg Tablet PO (09:21)
[2020-06-02] MEDS: metoprolol tartrate 25 mg Tablet PO ×2 (09:21→17:58)
[2020-06-02] MEDS: predniSONE 20 mg Tablet 40 MG PO (09:21)
--- NOTE | 2020-06-02 10:00 | PM.PN ---
Subjective Subjective: Interval history: Mr. Farnsworth thinks that he might actually feel a little bit better today. Complains of a little bit of nausea and a little bit of dizziness with movement. Neither 1 of these are new, nor worse than baseline. He thinks that 1 more day of some exercise will help him. Plan is still for him to go home with hospice. Await appeal of discharge from the other day. Medications: Reviewed: Yes Vitals/I&O/Wt Last Vital Signs Temp 97.6 F 06/02/20 07:15 Pulse 100 06/02/20 08:58 Resp 16 06/02/20 08:55 BP 134/73 06/02/20 07:15 Pulse Ox 99 06/02/20 08:55 06/01/20 06/02/20 06/02/20 22:59 06:59 14:59 Intake Total 480 / 2200 240 / 2440 120 / 120 Output Total 1800 / 1800 2300 / 4100 350 / 350 Balance -1320 / 400 -2060 / -1660 -230 / -230 Weight last 48 hrs Weight 90.446 kg Weight 90.129 kg Physical Exam Const: OTHER: Alert, oriented x3, chronic ill appearance HENMT: OTHER: Moist mucous membranes Neck/C-Spine: OTHER: Supple, no JVD noted and current position Resp: OTHER: Scattered wheezes, no accessory muscle use Cardio: OTHER: Regular rhythm, no murmurs noted GI: OTHER: Abdomen soft, nontender Extremity: NARRATIVE EXTREMITY EXAM: No pitting edema Neuro: OTHER: Speech clear, moves all extremities Psych: OTHER: Normal affect Skin: OTHER: Ecchymosis noted to forearms right greater than left with dry skin, no acute rashes Urinary Catheter Management^: Drake: Cath Placed During This Visit: no Reason for Continuing Indwelling Catheter: Chronic Indwelling Urinary Catheter on Admission Data : 06/02/20 05:08 06/02/20 05:08 A&P Assessment and plan (1) UTI (urinary tract infection): Complicated UTI, ESBL E. coli, in setting of Drake catheter chronically for urinary retention Will need follow-up with urology considered, started on Proscar and Flomax was continued Status: Acute Qualifiers: Encounter type: initial encounter Indwelling urinary catheter type: indwelling urethral catheter Urinary tract infection type: catheter-associated UTI Qualified Code(s): T83.511A - Infection and inflammatory reaction due to indwelling urethral catheter, initial encounter; N39.0 - Urinary tract infection, site not specified (2) Sepsis: Previous notes indicate possible sepsis at admission. I see criteria for fever and leukocytosis as well as elevated liver enzymes and generalized weakness. Resolved during the course of hospital stay with treatment. This was secondary to ESBL E. coli urinary tract infection. Status: Resolved Qualifiers: Sepsis acute organ dysfunction status: without acute organ dysfunction Sepsis type: Escherichia coli Qualified Code(s): A41.51 - Sepsis due to Escherichia coli [E. coli] (3) Fever: Resolved fever Findings consistent with sepsis at admission, resolved Status post 5 days of Primaxin for ESBL urinary tract infection Rapid flu was checked and was negative. Negative PCR test for coronavirus. MRSA PCR is negative. Status: Resolved Qualifiers: Fever type: due to other condition Qualified Code(s): R50.81 - Fever presenting with conditions classified elsewhere (4) Alkaline phosphatase elevation: Persistent, currently unclear significance, with comorbidities will monitor for now Status: Acute (5) COPD (chronic obstructive pulmonary disease): COPD with mild exacerbation following aspiration event during hospital stay Continues to have some wheeze but remains on baseline oxygen On steroids and breathing treatments Status: Chronic Qualifiers: COPD type: COPD with acute exacerbation Qualified Code(s): J44.1 - Chronic obstructive pulmonary disease with (acute) exacerbation (6) Paroxysmal atrial fibrillation with RVR: Currently sinus rhythm, on metoprolol 25 mg p.o. twice daily with stable blood pressures Normal TSH Poor candidate for anticoagulation with increased fall risk, severe degenerative changes of the spine and weakness with mobilization Status: Acute (7) Elevated troponin: Looks to have chronic troponin elevation, EKG with some nonspecific changes, felt to be due to demand ischemia No chest pain complaints Last stress test in 2019 indicated some scarring in LAD territory Plan is for medical management only with aspirin, Plavix, statin and continued beta-sushant Status: Acute (8) Generalized weakness: Deconditioning and significant degenerative changes with functional decline over time. Has been offered skilled placement but not willing to consider, wants to continue hospice care at home upon disposition. Status: Chronic (9) Leg weakness, bilateral: From what I can gather this is chronic with worsening lately including addition of numbness and pain CT lumbar and thoracic spine obtained, with severe degenerative spinal canal stenosis at L2-3, Moderate spinal canal stenosis L3-4, Mild degenerative stenosis at T9-10, T10-11 Status: Chronic (10) Cerumen impaction: Left ear greater than right ear Status: Acute Qualifiers: Laterality: bilateral Qualified Code(s): H61.23 - Impacted cerumen, bilateral (11) Hospice care patient: Status: Chronic Additional A&P Information Recent hospitalizations include: 04/01-04/05, COPD exacerbation with urinalysis suggestive of colonization, treated with steroids, chronic pain as well as some chronic chest pain Unclear date and time hospitalization at [facility] after above admission, sounds like was for respite care 05/26- present Other diagnoses include: Dysphagia with speech therapy recommending thickened liquids, nectar thick and aspiration precautions Chronic indwelling Drake catheter Elevated blood sugars and a diagnosis and history of type 2 diabetes mellitus, not on any treatment, will check A1c and discussed with patient, from what I can gather he is not on anything due to hospice status but certainly could be a contributing factor for him in terms of worsening weakness and other symptoms Chronic kidney disease stage III looks to be at baseline Aspiration pneumonitis Patient to continue physical therapy Lasix had been held for unclear reason, have resumed; consider potassium replacement Replace magnesium Metoprolol dose has been increased from home level and Plavix along with statin therapy have been added to medication regimen during course of hospital stay for medical management of possible cardiac disease Status post antibiotic therapy We will go home with Drake catheter Thickened liquid diet and aspiration precautions Treatment for acute COPD Can follow-up regarding cerumen impaction, alkaline phosphatase Follow-up with urology Will need follow-up with primary care provider for management of comorbid conditions and medications Subcu heparin for DVT prophylaxis Disposition plans: Home with home hospice, declined skilled placement Attestations Medical Necessity Statement*: Requires ongoing inpatient management while we continue to tweak medications, offer therapy and await disposition decision Coding Level of Care Code Acute Health Benefits Specialist for [facility] Fwd Diagnoses UTI (urinary tract infection) T83.511A; N39.0 Encounter type: initial encounter Indwelling urinary catheter type: indwelling urethral catheter Urinary tract infection type: catheter-associated UTI Sepsis A41.51 Sepsis acute organ dysfunction status: without acute organ dysfunction Sepsis type: Escherichia coli Fever R50.81 Fever type: due to other condition Alkaline phosphatase elevation R74.8 COPD (chronic obstructive pulmonary disease) J44.1 COPD type: COPD with acute exacerbation Paroxysmal atrial fibrillation with RVR I48.0 Elevated troponin R77.8 Generalized weakness R53.1 Leg weakness, bilateral R29.898 Cerumen impaction H61.23 Laterality: bilateral Hospice care patient Z51.5
[2020-06-02 11:47] LABS: Estmated Average Glucose 157; Hemoglobin A1C 7.1 % (4.0-6.0)
[2020-06-02] MEDS: magnesium sulfate premix 2 GM/50 ML PIGGYBACK IV (12:08)
[2020-06-02] MEDS: magnesium oxide 400 mg tablet PO (17:58)
[2020-06-02] MEDS: atorvastatin 40 mg Tablet PO (19:40)
[2020-06-02] MEDS: finasteride 5 mg Tablet PO (19:41)
[2020-06-02] MEDS: ALPRAZolam 0.5 mg Tablet PO (19:41)
[2020-06-03] VITALS (7 sets, daily range): BP systolic 121–156; BP diastolic 64–91; PULSE 84–98; RESP 18–20; TEMP 35.9–36.7; O2SAT 94–99
[2020-06-03] MEDS: heparin 5,000 unit/mL INJ 1 mL 5000 UNIT SUBCUT ×2 (02:52→11:32)
[2020-06-03] MEDS: ipratropium-albuterol 3 mL Neb 2.5 ML INHALATION (02:56)
--- NOTE | 2020-06-03 08:17 | P.DS_ITS ---
Discharge Providers Date of Admission: 05/26/20 16:00 Date of Discharge: June 03, 2020 Attending Provider at Admission: David Allen Attending Provider at Discharge: Maia Barrera MD Primary Care Provider: Erik Adkins DO Diagnoses at Discharge Discharge Diagnosis (1) UTI (urinary tract infection): Status: Acute Permanent problem details: ESBL E. coli Qualifiers: Encounter type: initial encounter Indwelling urinary catheter type: indwelling urethral catheter Urinary tract infection type: catheter-associated UTI Qualified Code(s): T83.511A - Infection and inflammatory reaction due to indwelling urethral catheter, initial encounter; N39.0 - Urinary tract infection, site not specified (2) Sepsis: Status: Resolved Qualifiers: Sepsis acute organ dysfunction status: without acute organ dysfunction Sepsis type: Escherichia coli Qualified Code(s): A41.51 - Sepsis due to Escherichia coli [E. coli] (3) Fever: Status: Resolved Qualifiers: Fever type: due to other condition Qualified Code(s): R50.81 - Fever presenting with conditions classified elsewhere (4) Alkaline phosphatase elevation: Status: Acute (5) COPD (chronic obstructive pulmonary disease): Status: Chronic Qualifiers: COPD type: COPD with acute exacerbation Qualified Code(s): J44.1 - Chronic obstructive pulmonary disease with (acute) exacerbation (6) Paroxysmal atrial fibrillation with RVR: Status: Resolved (7) Elevated troponin: Status: Chronic (8) Generalized weakness: Status: Chronic (9) Leg weakness, bilateral: Status: Chronic Permanent problem details: Severe degenerative changes in the spine, including moderate spinal canal stenosis L3-L4, severe at L2-L3 (10) Cerumen impaction: Status: Acute Qualifiers: Laterality: bilateral Qualified Code(s): H61.23 - Impacted cerumen, bilateral (11) Hospice care patient: Status: Chronic Reason for Visit Reason for Visit: UTI Hospital Course Hospital Course 80-year-old gentleman with history of CHF, chronic kidney disease, Oxygen dependent COPD, chronically on 3 L, CAD, frequent UTI, chronic indwelling Borja catheter, who with history of urinary retention, HTN, chronic pain syndrome, recently admitted for respite care at [facility], on returning home noted to have generalized weakness, dysuria, and was complaining of weakness in his legs. On presentation noted with leukocytosis, also reported fever measured by hospice nurse prior to presentation. Started on treatment for urinary tract infection with Primaxin due to history of ESBL in urine. Given possible sepsis was continued on treatment, with ESBL E. coli growing in urine, 70-80,000 CFU. COVID-19 was tested by PCR as well as rapid antigen and was negative. Due to pain, weakness in his back, thoracic and lumbar spine CT was obtained, with finding of significant multilevel degenerative changes, as well as with moderate spinal canal stenosis L3-L4. This was discussed with him and his daughter. Unfortunately with progressive degenerative changes ambulation and transfers may become an issue. He otherwise was improving, sepsis had resolved, weakness improved, however, had again transient worsening again with sepsis on 05/29, with leukocytosis up to 16,000, fever 100.8, sinus tachycardia 130s. Subsequently with noted wheezing, crackles in the lungs, and unfortunately most likely had an aspiration event. Unfortunately he is at high risk of aspiration. We did get speech therapy to assess him. Discussed with his daughter. Would recommend empirically to thicken liquids to nectar thick, maintain strict aspiration precautions. Sepsis again has resolved. He is doing much better. He has minimal wheezing, will give him a course of prednisone. Continue albuterol, breathing treatments. Due to chronic Borja catheter, while already on Flomax, with history of recurrent urinary retention, is also started on Proscar. Please reevaluate for voiding trial, and he is referred to urology as well. Please also reassess regarding cerumen impaction in the left ear. Discussed with his daughter. Please see full labs, imaging and notes for details. Not hesitate to contact with questions. Above the dictation was done a couple of days ago by my colleague Dr. Yepez. Reviewed and concur with additions as noted below. Mr. Farnsworth was originally discharged a few days ago but appealed his discharge. He has continued to have gradual improvement but remains weak particularly with position changes and such. He is feeling better enough to go home today. Plavix and statin therapy were added due to chronic troponin elevation for medical management. Patient and daughter have been agreeable to this plan. Given advanced age and comorbidities would consider evaluating goals for medical management going forward. He is receiving a course of prednisone to help with his breathing. Magnesium was low and supplement has been ordered. Mr. Farnsworth will resume home hospice care. Attempted to contact patient's daughter at phone number provided with no answer. Physical Exam Const: OTHER: Alert, oriented x3, chronic ill appearance with improved spirits today HENMT: OTHER: Moist mucous membranes Neck/C-Spine: OTHER: Supple, no JVD noted and current position Resp: OTHER: Scattered wheezes, no accessory muscle use Cardio: OTHER: Regular rhythm, no murmurs noted GI: OTHER: Abdomen soft, nontender Extremity: NARRATIVE EXTREMITY EXAM: No pitting edema Neuro: OTHER: Speech clear, moves all extremities, tremulous Psych: OTHER: Normal affect Skin: OTHER: Ecchymosis noted to forearms right greater than left with dry skin, no acute rashes Urinary Catheter Management^: Borja: Cath Placed During This Visit: no Reason for Continuing Indwelling Catheter: Chronic Indwelling Urinary Catheter on Admission Discharge Data Data Completed and Pending: Completed Studies During Hospitalization Category Date Time Status CT lumbar spine w o con* [id number] Routi ne Cat Scan 05/26/20 18:[address] thoracic spin wo con* [id number] Rout ine Cat Scan 05/26/20 18:46 Completed XR chest 1V saniya ble [id number] Routine Exams 05/29/20 15:57 Completed XR chest 1V saniya ble [id number] Stat Exams 05/26/20 13:50 Completed Pending at discharge Category Date Time Status Blood Culture Sta t Lab 05/29/20 16:40 Results Labs from last 24 hours 06/02/20 05:08 Estimat Average Gl ucose 157 Hemoglobin A1c 7.1 H Vitals: Last Vital Signs Temp 97.9 F 06/03/20 07:14 Pulse 97 06/03/20 07:14 Resp 18 06/03/20 07:14 BP 156/91 06/03/20 07:14 Pulse Ox 99 06/03/20 07:14 Discharge Plan Discharge Patient Disposition: Hospice - Home Condition: Stable Prescriptions: New magnesium oxide 400 mg (241.3 mg magnesium) Tablet 400 mg PO BID Qty: 60 RF: 0 finasteride 5 mg Tablet 5 mg PO BEDTIME Qty: 30 RF: 0 prednisone 20 mg tablet See Rx Instructions .ROUTE .COMPLEX Qty: 20 RF: 0 clopidogrel 75 mg Tablet 75 mg PO DAILY Qty: 30 RF: 0 atorvastatin 40 mg Tablet 40 mg PO BEDTIME Qty: 30 RF: 0 Continued metoprolol tartrate 25 mg Tablet 12.5 mg PO BID Qty: 0 RF: 0 ipratropium-albuterol 0.5 mg-3 mg(2.5 mg base)/3 mL solution for nebulization 2.5 ml INHALATION Q4H PRN (Reason: Shortness Of Breath Or Wheezing) RF: 0 tamsulosin 0.4 mg Capsule 0.4 mg PO DAILY Qty: 30 RF: 0 alprazolam [Xanax] 0.5 mg Tablet 0.5 - 1 mg PO Q4H PRN (Reason: Anxiety) RF: 0 sertraline 25 mg tablet 25 mg PO DAILY RF: 0 furosemide [Lasix] 20 mg tablet 40 mg PO DAILY RF: 0 oxybutynin chloride 5 mg tablet 5 mg PO TID PRN (Reason: Bladder Spasms) RF: 0 ondansetron HCl 4 mg tablet 4 mg PO Q6H PRN (Reason: n/v) RF: 0 hydrocodone-acetaminophen 5-325 mg Tablet 1 tab PO Q6H PRN (Reason: Pain) Qty: 20 RF: 0 albuterol sulfate 2.5 mg /3 mL (0.083 %) Solution For Nebulization 2.5 mg INHALATION Q6H PRN (Reason: Shortness Of Breath) RF: 0 famotidine 20 mg Tablet 20 mg PO BID RF: 0 Aspir-Low 81 mg Tablet,Delayed Release (Dr/Ec) 81 mg PO DAILY RF: 0 gabapentin 100 mg Capsule 100 mg PO TID RF: 0 Discontinued prednisone 20 mg Tablet See Taper mg PO DAILY Qty: 10 RF: 0 Discharge Orders: Discharge Order (Routine); Ordered 05/31/20 Ordered By: David Allen Referrals: Erik Adkins DO [Primary Care Provider] - 4-7 days Villa Bustillos MD [Physician] - 2 weeks (Voiding trial, chronic borja, ESBL [facility] will call you Tuesday with an appintment. If you dont hear from them you can call [phone]) Discharge Diet: As Directed Discharge Activity: Increase activity as tolerated and Oxygen as instructed Patient Instructions: Borja Catheter Care, Aspiration Pneumonia (GEN), Lumbar Spinal Stenosis (GEN), Extended Spectrum Beta Lactamase (GEN), Degenerative Disc Disease (GEN) Activity Restrictions/Additional Instructions: Please maintain strict aspiration precautions as per speech therapy teaching, pl ease thicken liquids to nectar thick consistency. Please discuss with your primary care doctor strategies for pain control due to severe degenerative changes in your back with spinal canal stenosis. 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 [employer] Fwd Diagnoses UTI (urinary tract infection) T83.511A; N39.0 Encounter type: initial encounter Indwelling urinary catheter type: indwelling urethral catheter Urinary tract infection type: catheter-associated UTI Sepsis A41.51 Sepsis acute organ dysfunction status: without acute organ dysfunction Sepsis type: Escherichia coli Fever R50.81 Fever type: due to other condition Alkaline phosphatase elevation R74.8 COPD (chronic obstructive pulmonary disease) J44.1 COPD type: COPD with acute exacerbation Paroxysmal atrial fibrillation with RVR I48.0 Elevated troponin R77.8 Generalized weakness R53.1 Leg weakness, bilateral R29.898 Cerumen impaction H61.23 Laterality: bilateral Hospice care patient Z51.5
[2020-06-03] MEDS: FUROsemide 40 mg Tablet PO (08:37)
[2020-06-03] MEDS: famotidine 20 mg Tablet PO (08:37)
[2020-06-03] MEDS: aspirin 81 mg EC Tablet PO (08:37)
[2020-06-03] MEDS: metoprolol tartrate 25 mg Tablet PO (08:38)
[2020-06-03] MEDS: clopidogrel 75 mg Tablet PO (08:38)
[2020-06-03] MEDS: gabapentin 100 mg Capsule PO (08:38)
[2020-06-03] MEDS: tamsulosin 0.4 mg Capsule PO (08:38)
[2020-06-03] MEDS: magnesium oxide 400 mg tablet PO (08:38)
[2020-06-03] MEDS: predniSONE 20 mg Tablet 40 MG PO (08:38)
[2020-06-03] MEDS: HYDROcodone-acetaminophen 5-325 mg Tablet 1 TAB PO (11:32)
== END 2020-06-03 13:55 | disposition hospice, home (50) | DRG 871 ==
LOC: ER 14:12 → MEDSURG 16:23
PROVIDERS: Admitting Provider Internal Medicine; Emergency Provider Family Medicine; PCP Family Medicine; Visit Provider Hospitalist
DX: A41.9 Sepsis, unspecified organism (principal); J69.0 Pneumonitis due to inhalation of food and vomit; T83.518A Infection and inflammatory reaction due to other urinary catheter, initial encounter; I13.0 Hypertensive heart and chronic kidney disease with heart failure and stage 1 through stage 4 chronic kidney disease, or unspecified chronic kidney disease; J44.1 Chronic obstructive pulmonary disease with (acute) exacerbation; N13.8 Other obstructive and reflux uropathy; I24.8 Other forms of acute ischemic heart disease; I50.9 Heart failure, unspecified; N18.30 Chronic kidney disease, stage 3 unspecified; E11.22 Type 2 diabetes mellitus with diabetic chronic kidney disease; Z99.81 Dependence on supplemental oxygen; I25.10 Atherosclerotic heart disease of native coronary artery without angina pectoris; Z87.440 Personal history of urinary (tract) infections; Y73.1 Therapeutic (nonsurgical) and rehabilitative gastroenterology and urology devices associated with adverse incidents; G89.4 Chronic pain syndrome; I35.0 Nonrheumatic aortic (valve) stenosis; N40.1 Benign prostatic hyperplasia with lower urinary tract symptoms; M48.061 Spinal stenosis, lumbar region without neurogenic claudication; R53.1 Weakness; Z66 Do not resuscitate; R74.8 Abnormal levels of other serum enzymes; R20.0 Anesthesia of skin; B96.20 Unspecified Escherichia coli [E. coli] as the cause of diseases classified elsewhere; Z79.82 Long term (current) use of aspirin; Z79.51 Long term (current) use of inhaled steroids; Z79.891 Long term (current) use of opiate analgesic; E83.42 Hypomagnesemia; R13.10 Dysphagia, unspecified; I48.0 Paroxysmal atrial fibrillation; H61.20 Impacted cerumen, unspecified ear; B95.2 Enterococcus as the cause of diseases classified elsewhere
CPT/HCPCS: 12345; 36415; 71045; 72128; 72131; 80053; 81001; 83036; 83605; 83735; 84443; 84484; 85025; 87040; 87077; 87086; 87186; 87426; 87635; 87641; 87804; 92610; 93005; 94640; 94762; 96372; 96375; 97110; 97116; 97161; 97530; 99283; J0743; J1644; J2405; J3370; J3475; J3490; J7030; J7050; J7512

== ENCOUNTER 2020-07-17 16:58 | Inpatient (IN) | payer OTHER, MEDICAID, SELFPAY ==
[2020-07-17] VITALS (14 sets, daily range): BP systolic 104–151; BP diastolic 61–93; PULSE 83–99; RESP 16–28; TEMP 36.7; O2SAT 89–98; BMI 41.0
--- NOTE | 2020-07-17 17:19 | XR_ITS ---
WS: [id number] Portable AP upright chest, 07/17/2020 Clinical Data: dyspnea Comparison: Portable chest, 05/29/2020. Findings: No nodules, masses or effusions are seen. There is a minimal patchy opacity in the right up per lobe which could represent atelectasis and/or pneumonia. The heart is normal. Aortic arch and branden cending aorta show calcification and tortuosity. The pulmonary vascularity is not increased. No pneum othorax is seen. The right diaphragm remains elevated. Monitor leads are on the chest wall. XR/XR chest 1V portable [id number] Impression: 1. Minimal patchy opacity in right upper lobe which could represent atelectasis and/or minimal pneumonia. 2. Chronic elevation right diaphragm. 3. Atherosclerosis.
--- NOTE | 2020-07-17 17:29 | ECG_ITS ---
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 Measurements Intervals [place] Rate: 81 P: 58 DE: 166 QRS: 104 QRSD: 104 T: 0 QT: 369 QTc: 430 Interpretive Statements SINUS RHYTHM WITH OCCASIONAL SUPRAVENTRICULAR PREMATURE COMPLEXES RIGHT AXIS DEVIATION [QRS AXIS > 100] SEPTAL MYOCARDIAL INFARCTION , OF INDETERMINATE AGE [40+ ms Q WAVE IN V1/V2] POSSIBLE INFERIOR MYOCARDIAL INFARCTION , PROBABLY OLD [30 ms Q WAVE IN II/aVF] Compared to ECG 07/17/2020 17:05:36 No significant changes Electronically Signed On 07-18-2020 13:48:25 TOBACCO EDUCATOR by Bhavya Jimenes M.D. [email or web address]
[2020-07-17] MEDS: albuterol 8 gm MDI 2 PUFF INHALATION ×2 (17:49→22:21)
[2020-07-17 17:58] LABS: ABG PCO2 55.5 mmHg (35-45); ABG PH Result 7.38 (7.35-7.45); Arterial Blood Gas Hematocrit 35.5 % (42-52); Base Excess ABG 6.3 mmol/L (-2.0-2.0); Blood Gas Allen Test Pos; Blood Gas Operator Identificat CAK; Blood Gas Sample Site Radial, left; Blood Gas Sample Type Arterial; Carboxyhemoglobin 0.9 %THgb (0.4-20.1); HCO3 ABG 32.8 mmol/L (22-26); HGB O2 Sat 95.8 % (95-100); Methemoglobin 0.9 % (0.4-1.5); Oxygen Device NC; PO2 ABG 91.4 mmHg (80.0-100.0); Total Hemoglobin 11.6 g/dL (14-18)
[2020-07-17] MEDS: dexamethasone 4 mg/mL INJ 10 MG IVP (18:00)
[2020-07-17 18:24] LABS: Basophils # 0.1 10^3/uL (0.0-0.1); Basophils % 0.6 %; Eosinophils # 0.5 10^3/uL (0.0-0.8); Eosinophils % 3.9 %; Hematocrit 35.9 % (42.0-52.0); Lymphocytes # 1.6 10^3/uL (0.8-4.8); Lymphocytes % 13.3 %; Mean Corpuscular HGB Conc 30.6 g/dL (30.0-36.0); Mean Corpuscular Hemoglobin 27.2 pg (28.0-34.0); Mean Corpuscular Volume 88.6 fL (80-94); Mean Platelet Volume 10.2 fL (7.4-10.4); Monocytes # 1.1 10^3/uL (0.2-0.9); Monocytes % 9.8 %; Neutrophils # 8.36 10^3/uL (1.8-7.7); Neutrophils % 71.5 %; Nucleated Red Blood Cells % 0 %; Platelet Count 224 10^3/cmm (130-400); Red Blood Count 4.05 10^6/uL (4.1-5.3); Red Cell Distribution Width 15.2 % (12.1-15.1); White Blood Count 11.7 10^3/uL (4.0-10.0)
[2020-07-17 18:35] LABS: Lactic Sepsis W/Reflex 1.2 mmol/L (0.5-2.2)
[2020-07-17 18:39] LABS: Troponin(5th) Baseline 83 ng/L (0-15)
[2020-07-17 18:46] LABS: Alanine Aminotransferase 21 U/L (0-41); Albumin Level 3.6 g/dL (3.5-5.2); Alkaline Phosphatase 152 IU/L (40-130); Anion Gap 13.5 (5-19); Aspartate Amino Transferase 14 U/L (0-40); Blood Urea Nitrogen 26 mg/dL (8-23); Calcium 9.4 mg/dL (8.5-10.5); Carbon Dioxide 32 mmol/L (22-29); Chloride 96 mmol/L (98-107); Globulin 2.5 g/dL (1.3-4.6); Glucose 145 mg/dL (65-115); NT Pro B Type Natriuretic Pept 583 pg/mL (0-450); Osmolality Calculated 291 mOsm/kg (285-295); Potassium 4.5 mmol/L (3.5-5.1); Sodium 137 mmol/L (136-145); Total Bilirubin 0.2 mg/dL (0.15-1.2); Total Protein 6.1 g/dL (6.6-8.7)
[2020-07-17 18:53] LABS: SARS Covid-2 Antigen Negative (Negative)
[2020-07-17 18:54] LABS: Influenza A by IFA Negative (Negative); Influenza B by IFA Negative (Negative)
[2020-07-17] MEDS: levofloxacin-dextrose 5 % 750 MG/150 ML PREMIX 100 MG IV (18:54)
--- NOTE | 2020-07-17 18:59 | PC.NURSE ---
report received from MONSTER Bermeo and care transferred to MONSTER Keita
[2020-07-17 19:01] LABS: Add Urine Microscopic? YES; Bilirubin Urine Neg (Negative); Blood Urine 2+ (Negative); Glucose Urine UA Norm (Normal); Ketones Urine Negative (Negative); Leukocyte Esterase Urine 2+ (Negative); Nitrate Urine Negative (Negative); Protein Urine Neg (Negative); Specific Gravity, Urine 1.015 (1.005-1.030); Urine Appearance SL Hazy (CLEAR); Urine Color Yellow (Yellow); Urobilinogen Urine Norm (Negative); pH Urine 5 (5-7)
[2020-07-17 19:13] LABS: Add Urine Culture? Yes; Bacteria Urine 2+ /hpf; RBC Urine 0-4 /hpf (0-2); Squamous Epithelial Cell Urine 0-4 /hpf (0-5); WBC Urine 55-80 /hpf (0-5)
--- NOTE | 2020-07-17 22:36 | P.HP_ITS ---
Providers/Chief Complaint Admitting Physician: David Allen Primary Care Provider: Erik Adkins DO Chief Complaint: sob History of Present Illness Pleasant 80-year-old gentleman with history of COPD has been getting progressively more short of breath over the last week, states he has been using his nebulizer treatments at home, but without much success. He denies any chest pain or pressure. He says he has been coughing. He is producing phlegm which is whitish to clear in color. Denies any fever or chills. In ER he is requiring 2 L of oxygen, ABG 7.38/55.5/91.4/32.8. Chest x-ray without sign of obvious pneumonia, pending radiologic interpretation. Rapid influenza, rapid COVID-19 negative. He has WBC 11.7, hemoglobin 11. Creatinine 1.7 with baseline around 1.4-1.6. He reports he has noticed more swelling in his lower extremities recently. He is having trouble laying down flat while sleeping due to getting short of breath. States that home health nurses thought that he may be accumulating water . His troponin is 83-73.6. BNP 583. He has a chronic Drake catheter which was changed about 3 weeks ago last. Urine with 0-4 RBC, 55-80 WBC. 2+ bacteria. Negative nitrate. States he currently is living at home with his daughter. Review of Systems Const: Denies: fever(s), chills, body aches or malaise Eyes: Denies: change in vision or eye redness ENMT: Denies: throat pain, oral sores or ear or mastoid pain Card: Reports: edema, dyspnea on exertion and orthopnea; Denies: chest pain or pre-syncope Resp: Reports: dyspnea and productive cough; Denies: change in phlegm color or hemoptysis GI: Denies: abdominal pain, nausea, vomiting, diarrhea, constipation, hematochezia or melena : Denies: flank pain, difficulty urinating, urinary frequency or hematuria Musc: Denies: back pain, joint swelling or joint redness Skin/Breast: Denies: rash, sores or new lesions Neuro: Denies: headache(s), numbness in extremities, weakness in extremities, dizziness, confusion or seizure-like activity Endo: Denies: polyuria or polydipsia Riky/Lymph: Denies: easy bleeding or purpura All/Imm: Denies: urticaria, throat swelling or tongue swelling Medications/Allergies Home Medications Medication Instructions Recorded Confirmed Last Taken Type ipratropium-albuterol 2.5 ml INHALATION Q4H PRN 11/03/19 05/26/20 04/01/20 History metoprolol tartrate 12.5 mg PO BID #0 11/03/19 05/26/20 03/31/20 History tamsulosin 0.4 mg PO DAILY #30 cap 11/08/19 05/26/20 03/31/20 Rx alprazolam [Xanax] 0.5 - 1 mg PO Q4H PRN 01/25/20 05/26/20 03/31/20 History furosemide [Lasix] 40 mg PO DAILY 02/21/20 05/26/20 03/31/20 History oxybutynin chloride 5 mg PO TID PRN 02/21/20 05/26/20 03/31/20 History sertraline 25 mg PO DAILY 02/21/20 05/26/20 03/31/20 History ondansetron HCl 4 mg PO Q6H PRN 04/01/20 05/26/20 03/31/20 History hydrocodone-acetaminophen 1 tab PO Q6H PRN #20 tab 04/05/20 05/26/20 Unknown Rx albuterol sulfate 2.5 mg INHALATION Q6H PRN 05/26/20 05/26/20 Unknown History famotidine 20 mg PO BID 05/26/20 05/26/20 Unknown History finasteride 5 mg PO BEDTIME #30 tab 05/31/20 Unknown Rx prednisone See Rx Instructions .ROUTE 05/31/20 Unknown Rx .COMPLEX #20 tab aspirin 81 mg PO DAILY 06/02/20 06/02/20 Unknown History atorvastatin 40 mg PO BEDTIME #30 tab 06/02/20 Unknown Rx clopidogrel 75 mg PO DAILY #30 tab 06/02/20 Unknown Rx gabapentin 100 mg PO TID 06/02/20 06/02/20 Unknown History magnesium oxide 400 mg PO BID #60 tab 06/02/20 Unknown Rx Allergies Allergy/AdvReac Type Severity Reaction Status Date / Time No Known Allergies Allergy Verified 07/17/20 17:17 PFSH Acute PFSH: Medical History Aortic stenosis, mild BPH with urinary obstruction CHF (congestive heart failure) Chronic kidney disease, stage 3 COPD (chronic obstructive pulmonary disease) COPD (chronic obstructive pulmonary disease) Diabetes mellitus, type II History of ESBL E. coli infection urine, history of ESBL E. coli bacteremia as well Hospice care patient Hypertension Osteoarthritis chronic back and joint pains Paroxysmal atrial fibrillation with RVR Surgical History No pertinent past surgical history denies any surgeries Family History Family/Other No problems noted. Social History Smoking and tobacco status: never smoked Alcohol intake: never Marital status: / Current occupational status: retired and disabled Vitals/I&O/Wt Last Vital Signs Temp 98.1 F 07/17/20 17:12 Pulse 90 07/17/20 22:26 Resp 17 07/17/20 22:21 BP 127/75 07/17/20 21:38 Pulse Ox 92 07/17/20 22:21 07/17/20 07/17/20 07/17/20 06:59 14:59 22:59 Intake Total 150 / 150 Balance 150 / 150 Weight last 48 hrs Weight 122.47 kg Physical Exam Const: COMMON NORMALS: no acute distress, patient oriented x3 and alert GENERAL APPEARANCE: cooperative ORIENTATION/CONSCIOUSNESS: Yes awake HENMT: COMMON NORMALS: oropharynx normal Neck/C-Spine: COMMON NORMALS: no JVD Resp: COMMON NORMALS: normal respiratory effort and clear to auscultation bilaterally AUSCULTATION: rhonchi, wheezes and diminished lung sounds Cardio: COMMON NORMALS: no JVD, regular rhythm, S1 normal heart sound present, S2 normal heart sound present and No murmurs present (Cardio) RHYTHM: regular rhythm HEART SOUNDS: S1 normal heart sound present and S2 normal heart sound present GI: COMMON NORMALS: Normal to inspection, nondistended, normoactive bowel sounds present, Soft to palpation and non-tender PALPATION: Yes Soft to palpation : OTHER: Drake Extremity: COMMON NORMALS: no joint enlargement GENERAL: Yes edema (2+ bilat LE) Neuro: COMMON NORMALS: patient oriented x3 and moves all extremities Skin: COMMON NORMALS: no rashes or lesions noted GENERAL SKIN EXAM: no rashes or lesions noted Data : 07/17/20 18:11 07/17/20 18:11 A&P Assessment and plan (1) COPD exacerbation: Severe COPD exacerbation with worsening cough, productive sputum, dyspnea, decreased air entry, wheezing, rhonchi on examination. Received steroid, started on antibiotic. Continue breathing treatments, traumatic, steroids, collect sputum culture. He would like to reserve BiPAP support until last resort if possible. He does report noticed perhaps some cough with food and drink. We will get speech therapy assessment. Status: Acute (2) Abnormal urine cytology: Pyuria, chronic Drake. He has perhaps some discomfort from the Drake, although this may be secondary to chronic indwelling catheter. This was last changed 3 weeks ago. Requested repeat UA after changing [place] catheter. Please follow-up urine, for now not treating UTI, but please reassess after repeat studies and his symptoms. Status: Acute (3) CHF exacerbation: Diastolic CHF exacerbation. LE swelling, orthopnea. Troponin is moderately elevated, but does not have any chest pain. Recently medically managed for suspected coronary disease. Limited goals of care. Currently under hospice care. Suspect troponin ovation currently is secondary to mismatch and demand supply. With CP exacerbation, respiratory illness, CHF exacerbation. We will treat with diuretic, transition from now to Lasix IV 40 mg every 12 hours. Monitor I&O, weights. Monitor renal function. Unfortunately with MARY BETH on CKD, treatment of CHF may be more difficult. Status: Acute (4) Acute kidney injury superimposed on CKD: Creatinine mildly higher than his previous baseline 1.4-1.6. Currently 1.7. He is presenting in CHF. Perhaps this may improve with treatment of CHF, and for now we will treat with Lasix. Monitor wound status, renal function. Please reevaluate depending on response. Status: Acute Additional A&P Information Chronic indwelling Drake catheter: With history of chronic urinary retention, previously referred for follow-up with urology for attempted weaning from chronic Drake. Finasteride. Flomax. History of ESBL UTI Paroxysmal A. fib Aortic stenosis CHF Chronic kidney disease stage III DM2 HTN OA Hospice care Attestations Medical Necessity Statement*: Admission of over 2 midnights is going be needed for assessment of management of COPD exacerbation, CHF exacerbation and gentleman with chronic kidney disease, diabetes, aortic stenosis, and other underlying comorbidities. Coding Level of Care Code Acute [employer] for g Fwd Diagnoses COPD exacerbation J44.1 Abnormal urine cytology R82.89 CHF exacerbation I50.9 Acute kidney injury superimposed on CKD N17.9; N18.9
--- NOTE | 2020-07-17 22:39 | W.ED.SOB ---
HPI - SOB/Dyspnea General: Chief Complaint: Shortness of Breath/Dyspnea Stated Complaint: sob Time Seen by Provider: 07/17/20 17:12 History of Present Illness: HPI Narrative: The patient is an 80-year-old male with past medical history of COPD and prostate cancer with indwelling catheter who comes to the ER complaining of increased shortness of breath and coughing over the past number of weeks. He is in mild respiratory distress. EMS gave him a DuoNeb in route which she says helped his condition. He was given another albuterol inhaler in the ER which she says also helped. He is frequently admitted with COPD exacerbations. He requires 3 L at home nasal cannula oxygen chronically and he feels like it is not enough anymore MD elicited complaint: shortness of breath and cough Pertinent past history: COPD Associated symptoms: Deny abdominal pain, chest pain, dizziness, extremity pain, orthopnea, palpitations or polyuria Review of Systems General: Reports: 10 or more systems reviewed and unremarkable except in HPI and below Const: Denies: fatigue Eyes: Denies: change in vision, blurry vision or eye redness ENMT: Denies: throat pain, swelling of lips/tongue, ear or mastoid pain or nasal congestion Card: Denies: chest pain, palpitations, irregular heart rhythm, edema, dyspnea on exertion or orthopnea Resp: Reports: dyspnea, non-productive cough and wheezing GI: Denies: abdominal pain, diarrhea or GI cramping : Denies: flank pain, urinary frequency or urinary urgency Musc: Denies: neck pain, back pain, extremity pain, joint pain, joint redness, limited range of motion or muscle weakness Skin/Breast: Denies: rash, pruritus, erythema, skin pain or skin tenderness Neuro: Denies: headache(s), numbness in extremities, weakness in extremities, sensory changes, difficulty walking, dizziness, confusion or Slurred speech present Psych: Denies: anxiety or depression Endo: Denies: polyuria All/Imm: Denies: urticaria, throat swelling or tongue swelling PFSH ED PFSH: Medical History Aortic stenosis, mild BPH with urinary obstruction CHF (congestive heart failure) Chronic kidney disease, stage 3 COPD (chronic obstructive pulmonary disease) COPD (chronic obstructive pulmonary disease) Diabetes mellitus, type II History of ESBL E. coli infection urine, history of ESBL E. coli bacteremia as well Hospice care patient Hypertension Osteoarthritis chronic back and joint pains Paroxysmal atrial fibrillation with RVR Surgical History No pertinent past surgical history denies any surgeries Family History Family/Other No problems noted. Social History Smoking and tobacco status: never smoked Alcohol intake: never Marital status: / Current occupational status: retired and disabled Physical Exam Const: COMMON NORMALS: no acute distress, average body habitus, patient oriented x3, no limitations, healthy appearing, alert and well nourished GENERAL APPEARANCE: cooperative, comfortable, well kempt and well developed ORIENTATION/CONSCIOUSNESS: Yes awake, Yes oriented to person, Yes oriented to place and Yes oriented to time HENMT: COMMON NORMALS: normocephalic, external ears normal and Normal external nose present HEAD & SCALP: normal to inspection and normocephalic NOSE: Normal external nose present EXTERNAL EAR: Yes external ears normal MOUTH: Normal oral and palatal mucosa present THROAT: posterior oropharynx normal Eye: COMMON NORMALS: Equal, round and reactive pupils present and EOMs intact bilaterally GENERAL EYE: appearance normal, both eyes and all related structures PUPIL: Yes Equal, round and reactive pupils present Neck/C-Spine: COMMON NORMALS: full ROM, no lymphadenopathy, no meningeal signs and no JVD GENERAL: Yes normal visual inspection Lymph: LYMPHATIC: no lymphadenopathy noted Chest: COMMONS NORMALS: normal inspection of the chest and normal palpation of entire chest wall Resp: COMMON NORMALS: normal respiratory effort, No retractions, No use of accessory muscles, clear to auscultation bilaterally and percussion normal EFFORT & INSPECTION: Yes able to speak in complete sentences AUSCULTATION: clear to auscultation bilaterally PERCUSSION: percussion normal Cardio: COMMON NORMALS: no JVD, regular rate, regular rhythm, S1 normal heart sound present, S2 normal heart sound present and Peripheral pulses 2+ throughout RATE: regular rate RHYTHM: regular rhythm HEART SOUNDS: S1 normal heart sound present and S2 normal heart sound present PERIPHERAL PULSES: Peripheral pulses 2+ throughout GI: COMMON NORMALS: Normal to inspection, nondistended, normoactive bowel sounds present, Soft to palpation, non-tender and no masses INSPECTION: Yes normal to inspection PALPATION: Yes Soft to palpation : COMMON NORMALS: Yes no CVA tenderness BLADDER/KIDNEY EXAM: Yes no CVA tenderness Back/Pelvis: COMMON NORMALS: no CVA tenderness, thoracic and lumbar spine normal to inspection, no thoracic nor lumbar tenderness and thoraco-lumbar ROM normal Extremity: COMMON NORMALS: normal to inspection, full ROM, capillary refill normal, no joint enlargement and no pedal edema GENERAL: Yes normal exam except as noted Neuro: COMMON NORMALS: patient oriented x3, CN's II-XII intact bilaterally, moves all extremities, no focal motor deficits, no sensory deficits noted and gait normal SENSORIUM/ORIENTATION: Yes alert, Yes oriented to person, Yes oriented to place and Yes oriented to time MENINGEAL SIGNS: Yes no meningeal signs Psych: COMMON NORMALS: mental status grossly normal, Normal thought process present, cooperative, normal affect and speech normal APPEARANCE: Yes well kempt ATTITUDE: Yes calm SPEECH: Yes normal speech THOUGHT PROCESS: Normal thought process present Skin: COMMON NORMALS: no rashes or lesions noted GENERAL SKIN EXAM: no rashes or lesions noted Course Vital Signs: Vital signs: Vital Signs Temperature 98.1 F 07/17/20 17:12 Pulse Rate 99 07/17/20 23:02 Respiratory Rate 28 H 07/17/20 23:02 Blood Pressure 135/80 07/17/20 23:02 Pulse Oximetry 95 07/17/20 23:02 MDM - SOB/Dyspnea MDM Narrative: Medical decision making narrative: The patient is a frequent flyer with COPD exacerbations and comes in today in respiratory distress requiring oxygen and albuterol treatments. His CO2 is slightly elevated above his baseline. He also has a chronic indwelling catheter and is having some symptoms of UTI. There are white cells in there however it is a chronic Drake so the hospitalist will repeat the urinalysis after the catheter is changed Lab Data: Labs: Lab Results 07/17/20 07/17/20 07/17/20 Range/Units 17:47 18:11 18:11 WBC 11.7 H (4.0-10.0) 10^3/ uL RBC 4.05 L (4.1-5.3) 10^6/u L Hgb 11.0 L (11.7-16.6) g/dL Hct 35.9 L (42.0-52.0) % MCV 88.6 (80-94) fL MCH 27.2 L (28.0-34.0) pg MCHC 30.6 (30.0-36.0) g/dL RDW 15.2 H (12.1-15.1) % Plt Count 224 (130-400) 10^3/c mm MPV 10.2 (7.4-10.4) fL Neut % (Auto) 71.5 % Lymph % (Auto) 13.3 % [place] % (Auto) 9.8 % Eos % (Auto) 3.9 % Baso % (Auto) 0.6 % Neut # (Auto) 8.36 H (1.8-7.7) 10^3/u L Lymph # (Auto) 1.6 (0.8-4.8) 10^3/u L [place] # (Auto) 1.1 H (0.2-0.9) 10^3/u L Eos # (Auto) 0.5 (0.0-0.8) 10^3/u L Baso # (Auto) 0.1 (0.0-0.1) 10^3/u L Nucleated RBC % (a uto) 0 % Nucleated RBCs # 0.0 /100WBC Specimen Type Arterial Sample Site Radial, left ABG pH 7.38 (7.35-7.45) ABG pCO2 55.5 H (35-45) mmHg ABG pO2 91.4 (80.0-100.0) mmH g ABG HCO3 32.8 H (22-26) mmol/L ABG Base Excess 6.3 H (-2.0-2.0) mmol/ L Shaun Test Pos Hematocrit 35.5 L (42-52) % Hgb O2 Saturation 95.8 (95-100) % Carboxyhemoglobin 0.9 (0.4-20.1) %THgb Methemoglobin 0.9 (0.4-1.5) % Total Hemoglobin 11.6 L (14-18) g/dL O2 Delivery Device Nc O2 Liters/Min 2.0 % FiO2 28.0 % Manager Drug Safety ID Cak Sodium 137 (136-145) mmol/L Potassium 4.5 (3.5-5.1) mmol/L Chloride 96 L (98-107) mmol/L Carbon Dioxide 32 H (22-29) mmol/L Anion Gap 13.5 (5-19) BUN 26 H (8-23) mg/dL Creatinine 1.7 H (0.7-1.2) mg/dL GFR Calculation Not Reportable Glucose 145 H (65-115) mg/dL Calculated Osmolal ity 291 (285-295) mOsm/k g Lactic Acid (0.5-2.2) mmol/L Calcium 9.4 (8.5-10.5) mg/dL Total Bilirubin 0.2 (0.15-1.2) mg/dL AST 14 (0-40) U/L ALT 21 (0-41) U/L Alkaline Phosphata se 152 H (40-130) IU/L Troponin T Baselin e (0-15) ng/L Troponin T 120 Min nelson (0-15) ng/L Delta Troponin T (0-10) ABS# NT-Pro-B Natriuret Pep 583 H (0-450) pg/mL Total Protein 6.1 L (6.6-8.7) g/dL Albumin 3.6 (3.5-5.2) g/dL Globulin 2.5 (1.3-4.6) g/dL Urine Color (Yellow) Urine Appearance (CLEAR) Urine pH (5-7) Ur Specific Gravit y (1.005-1.030) Urine Protein (Negative) Urine Glucose (UA) (Normal) Urine Ketones (Negative) Urine Blood (Negative) Urine Nitrate (Negative) Urine Bilirubin (Negative) Urine Urobilinogen (Negative) mg/dL Ur Leukocyte Ladi ase (Negative) Urine RBC (0-2) /hpf Urine WBC (0-5) /hpf Ur Squamous Epith Cells (0-5) /hpf Amorphous Sediment Urine Bacteria (NONE) /hpf Influenza Type A A g (Negative) Influenza Type B A g (Negative) SARS-CoV-2 Ag (Rap id) (Negative) 07/17/20 07/17/20 07/17/20 Range/Units 18:11 18:11 18:11 WBC (4.0-10.0) 10^3/ uL RBC (4.1-5.3) 10^6/u L Hgb (11.7-16.6) g/dL Hct (42.0-52.0) % MCV (80-94) fL MCH (28.0-34.0) pg MCHC (30.0-36.0) g/dL RDW (12.1-15.1) % Plt Count (130-400) 10^3/c mm MPV (7.4-10.4) fL Neut % (Auto) % Lymph % (Auto) % [place] % (Auto) % Eos % (Auto) % Baso % (Auto) % Neut # (Auto) (1.8-7.7) 10^3/u L Lymph # (Auto) (0.8-4.8) 10^3/u L [place] # (Auto) (0.2-0.9) 10^3/u L Eos # (Auto) (0.0-0.8) 10^3/u L Baso # (Auto) (0.0-0.1) 10^3/u L Nucleated RBC % (a uto) % Nucleated RBCs # /100WBC Specimen Type Sample Site ABG pH (7.35-7.45) ABG pCO2 (35-45) mmHg ABG pO2 (80.0-100.0) mmH g ABG HCO3 (22-26) mmol/L ABG Base Excess (-2.0-2.0) mmol/ L Shaun Test Hematocrit (42-52) % Hgb O2 Saturation (95-100) % Carboxyhemoglobin (0.4-20.1) %THgb Methemoglobin (0.4-1.5) % Total Hemoglobin (14-18) g/dL O2 Delivery Device O2 Liters/Min % FiO2 % Manager Drug Safety ID Sodium (136-145) mmol/L Potassium (3.5-5.1) mmol/L Chloride (98-107) mmol/L Carbon Dioxide (22-29) mmol/L Anion Gap (5-19) BUN (8-23) mg/dL Creatinine (0.7-1.2) mg/dL GFR Calculation Glucose (65-115) mg/dL Calculated Osmolal ity (285-295) mOsm/k g Lactic Acid 1.2 (0.5-2.2) mmol/L Calcium (8.5-10.5) mg/dL Total Bilirubin (0.15-1.2) mg/dL AST (0-40) U/L ALT (0-41) U/L Alkaline Phosphata se (40-130) IU/L Troponin T Baselin e 83 H (0-15) ng/L Troponin T 120 Min nelson (0-15) ng/L Delta Troponin T (0-10) ABS# NT-Pro-B Natriuret Pep (0-450) pg/mL Total Protein (6.6-8.7) g/dL Albumin (3.5-5.2) g/dL Globulin (1.3-4.6) g/dL Urine Color (Yellow) Urine Appearance (CLEAR) Urine pH (5-7) Ur Specific Gravit y (1.005-1.030) Urine Protein (Negative) Urine Glucose (UA) (Normal) Urine Ketones (Negative) Urine Blood (Negative) Urine Nitrate (Negative) Urine Bilirubin (Negative) Urine Urobilinogen (Negative) mg/dL Ur Leukocyte Ladi ase (Negative) Urine RBC (0-2) /hpf Urine WBC (0-5) /hpf Ur Squamous Epith Cells (0-5) /hpf Amorphous Sediment Urine Bacteria (NONE) /hpf Influenza Type A A g (Negative) Influenza Type B A g (Negative) SARS-CoV-2 Ag (Rap id) Negative (Negative) 07/17/20 07/17/20 07/17/20 Range/Units 18:11 18:40 20:21 WBC (4.0-10.0) 10^3/ uL RBC (4.1-5.3) 10^6/u L Hgb (11.7-16.6) g/dL Hct (42.0-52.0) % MCV (80-94) fL MCH (28.0-34.0) pg MCHC (30.0-36.0) g/dL RDW (12.1-15.1) % Plt Count (130-400) 10^3/c mm MPV (7.4-10.4) fL Neut % (Auto) % Lymph % (Auto) % [place] % (Auto) % Eos % (Auto) % Baso % (Auto) % Neut # (Auto) (1.8-7.7) 10^3/u L Lymph # (Auto) (0.8-4.8) 10^3/u L [place] # (Auto) (0.2-0.9) 10^3/u L Eos # (Auto) (0.0-0.8) 10^3/u L Baso # (Auto) (0.0-0.1) 10^3/u L Nucleated RBC % (a uto) % Nucleated RBCs # /100WBC Specimen Type Sample Site ABG pH (7.35-7.45) ABG pCO2 (35-45) mmHg ABG pO2 (80.0-100.0) mmH g ABG HCO3 (22-26) mmol/L ABG Base Excess (-2.0-2.0) mmol/ L Shaun Test Hematocrit (42-52) % Hgb O2 Saturation (95-100) % Carboxyhemoglobin (0.4-20.1) %THgb Methemoglobin (0.4-1.5) % Total Hemoglobin (14-18) g/dL O2 Delivery Device O2 Liters/Min % FiO2 % Manager Drug Safety ID Sodium (136-145) mmol/L Potassium (3.5-5.1) mmol/L Chloride (98-107) mmol/L Carbon Dioxide (22-29) mmol/L Anion Gap (5-19) BUN (8-23) mg/dL Creatinine (0.7-1.2) mg/dL GFR Calculation Glucose (65-115) mg/dL Calculated Osmolal ity (285-295) mOsm/k g Lactic Acid (0.5-2.2) mmol/L Calcium (8.5-10.5) mg/dL Total Bilirubin (0.15-1.2) mg/dL AST (0-40) U/L ALT (0-41) U/L Alkaline Phosphata se (40-130) IU/L Troponin T Baselin e (0-15) ng/L Troponin T 120 Min nelson 73.60 H (0-15) ng/L Delta Troponin T -9.40 L (0-10) ABS# NT-Pro-B Natriuret Pep (0-450) pg/mL Total Protein (6.6-8.7) g/dL Albumin (3.5-5.2) g/dL Globulin (1.3-4.6) g/dL Urine Color Yellow (Yellow) Urine Appearance Sl hazy (CLEAR) Urine pH 5 (5-7) Ur Specific Gravit y 1.015 (1.005-1.030) Urine Protein Neg (Negative) Urine Glucose (UA) Norm (Normal) Urine Ketones Negative (Negative) Urine Blood 2+ H (Negative) Urine Nitrate Negative (Negative) Urine Bilirubin Neg (Negative) Urine Urobilinogen Norm (Negative) mg/dL Ur Leukocyte Ladi ase 2+ H (Negative) Urine RBC 0-4 H (0-2) /hpf Urine WBC 55-80 H (0-5) /hpf Ur Squamous Epith Cells 0-4 H (0-5) /hpf Amorphous Sediment Not Reportable Urine Bacteria 2+ H (NONE) /hpf Influenza Type A A g Negative (Negative) Influenza Type B A g Negative (Negative) SARS-CoV-2 Ag (Rap id) (Negative) Discharge Plan Discharge Admit Provider: David Allen Coding Level of Care Code ED Manager Practice for Chg Fwd Exam Comprehensive
[2020-07-17] MEDS: FUROsemide 10 mg/mL SDV 4mL 40 MG IVP (22:57)
[2020-07-17 23:04] LABS: Bilirubin Urine Neg (Negative); Blood Urine 3+ (Negative); Glucose Urine UA Norm (Normal); Ketones Urine Negative (Negative); Nitrate Urine Negative (Negative); Protein Urine Neg (Negative); Urine Appearance Cloudy (CLEAR); Urine Color Yellow (Yellow); Urobilinogen Urine Norm (Negative)
[2020-07-17 23:05] LABS: Add Urine Microscopic? YES; Leukocyte Esterase Urine Trace (Negative)
--- NOTE | 2020-07-17 23:29 | ECG_ITS ---
[facility] Test Date: 2020-07-17 Pat Name: Vladimir Farnsworth Department: Room: Gender: Male [employer]: : 1940 Requested By: Hima Zuniga Order Number: [id number] Perkins MD: Bhavya Jimenes M.D. Measurements Intervals [place] Rate: 81 P: 65 IN: 159 QRS: 106 QRSD: 94 T: 15 QT: 355 QTc: 413 Interpretive Statements SINUS RHYTHM RIGHT AXIS DEVIATION [QRS AXIS > 100] LOW QRS VOLTAGE IN PRECORDIAL LEADS [QRS DEFLECTION < 1.0 mV IN CHEST LEADS] SEPTAL MYOCARDIAL INFARCTION , OF INDETERMINATE AGE [40+ ms Q WAVE IN V1/V2] Compared to ECG 06/01/2020 17:46:39 Low QRS voltage now present Myocardial infarct finding now present Sinus arrhythmia no longer present Electronically Signed On 07-17-2020 20:52:17 [employer] ROOM ATTENDANT by Bhavya Jimenes M.D. [id number]
--- NOTE | 2020-07-17 23:55 | PC.NURSE ---
Patient arrived to the floor from the ED after report was received via phone. Patient is alert and oriented and can ambulate with assistance. Patient states that he does not have his medication list with him. Unable to complete med rec at this time. Patient asks several questions about heart monitor and his physical condition and appears to be anxious about being in the hospital. Patient has been oriented to his room and has call light within reach.
[2020-07-18] VITALS (19 sets, daily range): BP systolic 135–158; BP diastolic 83–96; PULSE 88–142; RESP 17–24; TEMP 36.6–36.7; O2SAT 78–99
[2020-07-18] MEDS: heparin 5,000 unit/mL INJ 1 mL 5000 UNIT SUBCUT ×4 (00:02→20:42)
[2020-07-18] MEDS: levofloxacin-dextrose 5 % 750 MG/150 ML PREMIX 100 MG IV (00:02)
[2020-07-18 00:07] LABS: Troponin 5 6HR 63.24 ng/L (0-15)
[2020-07-18 00:13] LABS: Troponin 5 6HR Delta -19.76 ng/L (0-12)
--- NOTE | 2020-07-18 00:18 | PC.NURSE ---
Patient continues to ask several questions. Patient seems anxious about his illness. Patient seems to not understand teaching and education. He states I just don't think you girls are telling me everything. I think something's wrong that you're not telling me. Patient begins to talk about his kids. He states they want me in the senior living and I don't think they can have my property if I go to the senior living, I think the senior living will take them and I don't think my kids realize that. He also states my kids haven't even called to check on my and I'm in the hospital.
[2020-07-18] MEDS: ipratropium-albuterol 3 mL Neb INHALATION ×6 (00:32→23:48)
--- NOTE | 2020-07-18 01:41 | PC.NURSE ---
Dr. Dobson notified of patient stating that he takes Hydrocodone at home and is asking for it. Also notified of being unable to update med rec at this time because patient does not know the name or dosage of most of his medications.
[2020-07-18] MEDS: HYDROcodone-acetaminophen 5-325 mg Tablet 1 TAB PO ×3 (01:46→20:40)
--- NOTE | 2020-07-18 01:47 | PC.NURSE ---
Dr. Dobson notified of patient asking for something to help him sleep and stating that he takes xanax at home.
[2020-07-18] MEDS: ALPRAZolam 0.5 mg Tablet PO ×3 (02:22→20:40)
--- NOTE | 2020-07-18 02:24 | PC.NURSE ---
Patient asked what is my pulse rate? Nurse stated 99. Patient states oh, that 's way too high.
[2020-07-18 03:16] LABS: Basophils % 0.2 %; Hematocrit 37.4 % (42.0-52.0); Hemoglobin 11.6 g/dL (11.7-16.6); Lymphocytes # 0.4 10^3/uL (0.8-4.8); Lymphocytes % 3.4 %; Mean Corpuscular Hemoglobin 27.2 pg (28.0-34.0); Mean Corpuscular Volume 87.6 fL (80-94); Mean Platelet Volume 10.1 fL (7.4-10.4); Monocytes # 0.2 10^3/uL (0.2-0.9); Monocytes % 1.4 %; Neutrophils # 10.72 10^3/uL (1.8-7.7); Neutrophils % 93.9 %; Nucleated Red Blood Cells % 0 %; Platelet Count 215 10^3/cmm (130-400); Red Blood Count 4.27 10^6/uL (4.1-5.3); Red Cell Distribution Width 15.3 % (12.1-15.1); White Blood Count 11.4 10^3/uL (4.0-10.0)
[2020-07-18 03:39] LABS: Alanine Aminotransferase 20 U/L (0-41); Albumin Level 3.9 g/dL (3.5-5.2); Alkaline Phosphatase 169 IU/L (40-130); Aspartate Amino Transferase 15 U/L (0-40); Blood Urea Nitrogen 27 mg/dL (8-23); Calcium 9.8 mg/dL (8.5-10.5); Carbon Dioxide 31 mmol/L (22-29); Chloride 92 mmol/L (98-107); Globulin 2.9 g/dL (1.3-4.6); Glucose 265 mg/dL (65-115); Osmolality Calculated 294 mOsm/kg (285-295); Sodium 135 mmol/L (136-145); Total Bilirubin 0.2 mg/dL (0.15-1.2); Total Protein 6.8 g/dL (6.6-8.7)
--- NOTE | 2020-07-18 03:48 | ECG_ITS ---
[facility] Test Date: 2020-07-18 Pat Name: lVadimir Farnsworth Department: Room: 101 Gender: Male Bug Trimmer: : 1940 Requested By: David Allen Order Number: [id number] Maddie MD: Chuck Nunn M.D. Measurements Intervals [place] Rate: 111 P: 56 [place]: 166 QRS: 120 QRSD: 101 T: -18 QT: 345 QTc: 469 Interpretive Statements SINUS TACHYCARDIA WITH OCCASIONAL SUPRAVENTRICULAR PREMATURE COMPLEXES INCOMPLETE RIGHT BUNDLE BRANCH BLOCK [90+ ms QRS DURATION, TERMINAL R IN V1/V2, 40+ ms S IN I/aVL/V4/V5/V6] POSSIBLE RIGHT VENTRICULAR HYPERTROPHY [SOME/ALL OF: PROMINENT R IN V1, LATE TRANSITION, RAD, MYKE, SSS] PROBABLE INFERIOR MYOCARDIAL INFARCTION [35 ms Q WAVE IN II/aVF], OF INDETERMINATE AGE Compared to ECG 07/17/2020 20:34:40 Incomplete right bundle-branch block now present Sinus rhythm no longer present Right-axis deviation no longer present Myocardial infarct finding still present Electronically Signed On 07-18-2020 17:24:04 ROLLING MILL OPERATOR by Chuck Nunn M.D. [id number]
--- NOTE | 2020-07-18 03:48 | PC.NURSE ---
Dr. Allen notified of heart rate maintaining 100 to 125 on monitor.
[2020-07-18] MEDS: tamsulosin 0.4 mg Capsule PO (09:19)
[2020-07-18] MEDS: metoprolol tartrate 25 mg Tablet 12.5 MG PO (09:19)
[2020-07-18] MEDS: aspirin 81 mg EC Tablet PO (09:19)
[2020-07-18] MEDS: sertraline 50 mg Tablet 25 MG PO (09:19)
[2020-07-18] MEDS: clopidogrel 75 mg Tablet PO (09:20)
[2020-07-18] MEDS: FUROsemide 10 mg/mL SDV 4mL 40 MG IVP ×2 (09:22→20:41)
--- NOTE | 2020-07-18 09:28 | P.PN_ITS ---
Subjective Subjective: Interval history: Chart reviewed, Drake catheter changed, had 2000 mL urine output overnight. Normotensive and afebrile, noted tachycardia. Resting in bed, reports feeling terrible when asked how he is doing though not specific about what; he repeatedly asks the same/similar questions, needs frequent reassurance. Seems to remember me from previous admissions. Medications: Reviewed: Yes Medication Review Details: Active Medications Generic Name Dose Route Start Last Admin Trade Name Freq PRN Reason Stop Dose Admin Acetaminophen 650 mg 07/17/20 23:11 Acetaminophen 32 5 Mg Tablet PO Q6H PRN Mild/Mod Pain Or Temp >/= 101 Hydrocodone Bitart /Acetaminophen 1 tab 07/18/20 01:22 07/18/20 01:46 Hydrocodone-Acet aminophen 5-325 Mg Tablet PO 1 tab Q6H PRN Administration MODERATE PAIN Albuterol/Ipratrop ium 3 ml 07/18/20 00:00 07/18/20 09:16 Ipratropium-Albu terol 3 Ml Neb INHALATION Not Given Q4H.RESPIRATORY S CH Albuterol/Ipratrop ium 3 ml 07/17/20 23:11 Ipratropium-Albu terol 3 Ml Neb INHALATION Q4H PRN SHORTNESS OF YI TH Alprazolam 0.5 mg 07/18/20 01:57 07/18/20 09:32 Alprazolam 0.5 M g Tablet PO 0.5 mg Q4H PRN Administration ANXIETY Aspirin 81 mg 07/18/20 09:00 07/18/20 09:19 Aspirin 81 Mg Ec Tablet PO 81 mg DAILY APURVA Administration Atorvastatin Calci um 40 mg 07/18/20 21:00 Atorvastatin 40 Mg Tablet PO BEDTIME APURVA Clopidogrel Bisulf ate 75 mg 07/18/20 09:00 07/18/20 09:20 Clopidogrel 75 M g Tablet PO 75 mg DAILY APURVA Administration Finasteride 5 mg 07/18/20 21:00 Finasteride 5 Mg Tablet PO BEDTIME APURVA Furosemide 40 mg 07/18/20 10:00 07/18/20 09:22 Furosemide 10 Mg /Ml Sdv 4ml IVP 40 mg Q12H APURVA Administration Heparin Sodium (Be ef Lung) 5,000 unit 07/17/20 23:11 07/18/20 06:02 Heparin 5,000 Un it/Ml Inj 1 Ml SUBCUT 5,000 unit Q8H APURVA Administration Levofloxacin/Dextr ose 750 mg in 150 mls @ 100 mls/hr 07/17/20 23:11 07/18/20 01:37 Levaquin-D5w IV Infused Q48H APURVA Infusion Protocol Methylprednisolone Sodium Succinate 60 mg 07/18/20 05:30 07/18/20 06:02 Methylprednisolo ne Sod Succ 125 Mg /2 Ml Inj IVP 60 mg Q6H APURVA Administration Metoprolol Tartrat e 12.5 mg 07/18/20 09:00 07/18/20 09:19 Metoprolol Tartr ate 25 Mg Tablet PO 12.5 mg BID APURVA Administration Sertraline HCl 25 mg 07/18/20 09:00 07/18/20 09:19 Sertraline 50 Mg Tablet PO 25 mg DAILY APURVA Administration Tamsulosin HCl 0.4 mg 07/18/20 09:00 07/18/20 09:19 Tamsulosin 0.4 M g Capsule PO 0.4 mg DAILY APURVA Administration No Known Allergies Allergy (Verified 07/17/20 23:42) Vitals/I&O/Wt Last Vital Signs Temp 98.1 F 07/18/20 04:00 Pulse 142 H 07/18/20 09:10 Resp 24 H 07/18/20 09:10 BP 135/96 07/18/20 04:00 Pulse Ox 91 07/18/20 09:10 07/17/20 07/18/20 07/18/20 22:59 06:59 14:59 Intake Total 150 / 150 850 / 1000 Output Total 1999 / 1999 Balance 150 / 150 -1150 / -1000 Weight last 48 hrs Weight 92.079 kg Weight 92.17 kg Weight 122.47 kg Physical Exam Const: COMMON NORMALS: no acute distress and alert GENERAL APPEARANCE: cooperative and comfortable NUTRITIONAL APPEARANCE: obese centrally obese ORIENTATION/CONSCIOUSNESS: Yes awake and Yes confused OTHER: -appears appropriate for age HENMT: COMMON NORMALS: normocephalic, atraumatic, hearing grossly normal bilaterally and moist oral mucous membranes HEAD & SCALP: normocephalic and atraumatic Eye: COMMON NORMALS: Equal, round and reactive pupils present, EOMs intact bilaterally and conjunctivae normal CONJUNCTIVA: Yes conjunctivae normal PUPIL: Yes Equal, round and reactive pupils present Neck/C-Spine: COMMON NORMALS: full ROM GENERAL: Yes normal visual inspection and Yes trachea midline Resp: COMMON NORMALS: normal respiratory effort, No retractions and No use of accessory muscles EFFORT & INSPECTION: Yes able to speak in complete sentences, Yes symmetric chest movement and Yes tachypneic AUSCULTATION: diminished lung sounds OTHER: -on 4 L NC Cardio: COMMON NORMALS: regular rhythm, S1 normal heart sound present, S2 normal heart sound present and No murmurs present (Cardio) RATE: tachycardic (HR in the 100-120 range) RHYTHM: regular rhythm HEART SOUNDS: S1 normal heart sound present and S2 normal heart sound present GI: COMMON NORMALS: Normal to inspection, nondistended, normoactive bowel sounds present, Soft to palpation and non-tender INSPECTION: Yes central obesity PALPATION: Yes Soft to palpation : BLADDER/KIDNEY EXAM: Yes catheter in place Catheter type (Male): urethral (chronic) Extremity: COMMON NORMALS: normal to inspection, full ROM and no pedal edema NARRATIVE EXTREMITY EXAM: -1+ pitting edema of bilateral LEs Neuro: COMMON NORMALS: moves all extremities, no focal motor deficits and no sensory deficits noted SENSORIUM/ORIENTATION: Yes alert Psych: COMMON NORMALS: cooperative, normal affect and speech normal SPEECH: Yes normal speech OTHER: -mental status tends to wax and wane with intermittent confusion, repeatedly asking the same questions Skin: COMMON NORMALS: no rashes or lesions noted, no jaundice, no petechiae and no mottling GENERAL SKIN EXAM: no rashes or lesions noted Urinary Catheter Management^: Drake: Cath Placed During This Visit: yes Reason for Continuing Indwelling Catheter: Chronic Indwelling Urinary Catheter on Admission Urinary Catheter Date of Insertion: 07/17/20 Urinary Catheter Time of Insertion: 22:20 Data : 07/18/20 02:55 07/18/20 02:55 A&P Assessment and plan (1) CHF exacerbation: -acute CHF exacerbation as evidenced by dyspnea, LE edema, BNP elevation -continue IV diuresis with Lasix -daily weights, monitor Is & Os -Echo: EF=65%, mild , trace to mild TR, trace AL -continue to monitor vital signs; noted tachycardia -continue to monitor respiratory status, supplemental oxygen as needed Status: Acute Qualifiers: Heart failure type: diastolic Qualified Code(s): I50.33 - Acute on chronic diastolic (congestive) heart failure (2) COPD exacerbation: -is oxygen dependent at baseline, 3 L NC -CXR noted -on steroids, Neb treatments, pulmonary toilet -continue to monitor respiratory status Status: Acute (3) Acute kidney injury superimposed on CKD: -has noted MARY BETH on CKD stage 3; baseline Cr is around 1.5-1.6 -closely monitor lytes and renal function with diuresis -has chronic indwelling Drake catheter; changed this admission, continue to monitor urine output -avoid nephrotoxins, renally dose meds Status: Acute (4) Abnormal urine cytology: -UA with noted LE, pyuria, bacteria -does have hx of ESBL E.coli -on empiric antibiotics -f/u urine cx Status: Acute (5) Hypertension: -continue to monitor vital signs -continue oral antihypertensives Status: Chronic Qualifiers: Hypertension type: essential hypertension Qualified Code(s): I10 - Essential (primary) hypertension Additional A&P Information -hx of mild aortic stenosis -BPH hx; continue finasteride, has chronic indwelling Drake catheter, follows up with Dr. Bustillos -Obesity: BMI-31 kg/m2 -Dyslipidemia; continue statin -NIDDM type II; accucheks, ISS -OA, chronic pain; pain control as needed -hx of paroxysmal atrial fibrillation with RVR; on BB, telemetry monitoring -difficulty swallowing; ST evaluation appreciated; no overt aspiration, regular diet and liquid consistency recommended; aspiration precautions -cardiac consistent carb diet as tolerated -GI ppx with famotidine -DVT ppx with heparin -Dispo: home with hospice -Code status: DNR/DNI; ok with ICU admission Attestations Medical Necessity Statement*: Patient requires hospitalization for continued IV antibiotics, steroids, monitoring of respiratory status, continued IV diuresis. Time Spent in Patient Care: 16 - 35 minutes (>than 50% of time spent in counselling and/or direct pt care on unit) . Coding Level of Care Code Acute Case Management Assistant for Chg Fwd Exam Comprehensive Diagnoses CHF exacerbation I50.33 Heart failure type: diastolic COPD exacerbation J44.1 Acute kidney injury superimposed on CKD N17.9; N18.9 Abnormal urine cytology R82.89 Hypertension I10 Hypertension type: essential hypertension
--- NOTE | 2020-07-18 09:51 | USCV_ITS ---
Vladimir Farnsworth Age: 80 Gender: M : 1940 Exam Date: 07/18/2020 10:39 Ordering Phys: Margarita Parekh MD Technologist: Urvashi Martinez [place]am [place] [facility] [place]: Congestive heart failure BP: 135 / 98 HR: 106 Rhythm: Sinus Technical Quality: Adequate MEASUREMENTS (Male / Female) Normal Values 2D ECHO LV Chamber Size 2.2 cm RV Chamber Size 2.9 cm LVOT Diameter 2.1 cm LV Ejection Fraction MOD 2C 57.9 % LV Ejection Fraction 2C AL 58.2 % LA Diameter 3.9 cm LA Width 2.9 cm LA Height 3.3 cm RA Width 2.6 cm RA Height 3.3 cm Aorta at Sinotubular Diameter 3.1 cm M-MODE LV Diastolic Diameter MM 4.0 cm 4.2 - 5.9 / 3.9 - 5.3 cm LV Systolic Diameter MM 2.0 cm LV Ejection Fraction MM Teich 82.4 % IVS Diastolic Thickness MM 1.2 cm 0.6 - 1.0 / 0.6 - 0.9 cm IVS Systolic Thickness MM 1.6 cm LVPW Diastolic Thickness MM 1.0 cm 0.6 - 1.0 / 0.6 - 0.9 cm LVPW Systolic Thickness MM 1.8 cm Aortic Annulus Diameter 3.8 cm LA Ao Ratio MM 1.1 MV E Point Septal Separation 0.8 cm DOPPLER AV Peak Velocity 224.0 cm/s LVOT Peak Velocity 110.0 cm/s AV Area Cont Eq vti 1.8 cm squared AV Area Cont Eq pk 1.7 cm squared MV Area PHT 8.1 cm squared Mitral E to A Ratio 0.5 MV E' Velocity 37.0 cm/s Mitral E to MV E' Ratio 4.6 Mitral E to LV E' Lateral Ratio 4.6 Mitral E to LV E' Septal Ratio 4.7 TR Peak Velocity 199.0 cm/s TR Peak Gradient 15.8 mmHg TV Peak E Velocity 58.0 cm/s Right Atrial Pressure 3.0 mmHg Pulmonary Artery Systolic Pressu 18.8 mmHg PV Peak Velocity 78.0 cm/s RV Acceleration Time 0.1 s RV Ejection Time 0.3 s RV AcT/ET 0.2 FINDINGS Left Ventricle Normal left ventricular size and systolic function with no diagnostic regional wall motion abnormalities. Left ventricular ejection fraction is estimated at 65 %. Indeterminate diastolic function. Right Ventricle Probably normal right ventricle size and systolic function. Right ventricular systolic pressure 18.8 mmHg. Right Atrium Normal right atrial size. Left Atrium Normal left atrial size. Mitral Valve Mildly thickened mitral valve. Aortic Valve Aortic valve not well visualized. Probably thickened and calcified aortic valve. Aortic valve stenosis visually appears to be at least moderate. Mild aortic valve stenosis, mean gradient 10.6 mmHg, VANGIE 1.8 cm squared by continuity equation. No aortic valve regurgitation. Tricuspid Valve Tricuspid valve not well visualized. Trace to mild tricuspid valve regurgitation. Pulmonic Valve Pulmonic valve not well visualized. Trace pulmonary valve regurgitation. Pericardium No pericardial effusion. Aorta Normal size aortic root and proximal ascending aorta. Normal- sized inferior vena cava. CONCLUSIONS 1. This is a technically difficult study. 2. Normal left ventricular size and systolic function with no regional wall motion abnormalities. Left ventricular ejection fraction is estimated at 65 %. 3. Probably normal right ventricle size and systolic function. 4. Normal pulmonary artery pressure. 5. Aortic valve stenosis visually appears to be at least moderate. Mild aortic valve stenosis, mean gradient 10.6 mmHg, VANGIE 1.8 cm squared by continuity question. 6. When compared to previous echocardiogram dated 05/07/2019, aortic valve stenosis may have been underestimated. Bhavya Jimenes MD (Electronically Signed) Final Date: 18 July 2020 17:56 S
--- NOTE | 2020-07-18 09:56 | PC.PHAR ---
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
[2020-07-18] MEDS: famotidine 20 mg Tablet PO ×2 (11:42→18:36)
--- NOTE | 2020-07-18 15:17 | PC.RESP ---
PULMONARY REHAB INFORMATION SENT TO PATIENT.
[2020-07-18] MEDS: finasteride 5 mg Tablet PO (20:40)
[2020-07-18] MEDS: atorvastatin 40 mg Tablet PO (20:41)
[2020-07-19] VITALS (19 sets, daily range): BP systolic 133–154; BP diastolic 77–104; PULSE 80–107; RESP 17–28; TEMP 36.3–36.4; O2SAT 93–98
[2020-07-19] MEDS: ipratropium-albuterol 3 mL Neb INHALATION ×6 (04:15→23:58)
[2020-07-19 05:59] LABS: Basophils % 0.1 %; Hematocrit 34.9 % (42.0-52.0); Hemoglobin 11.1 g/dL (11.7-16.6); Lymphocytes # 0.5 10^3/uL (0.8-4.8); Lymphocytes % 5.3 %; Mean Corpuscular HGB Conc 31.8 g/dL (30.0-36.0); Mean Corpuscular Hemoglobin 27.1 pg (28.0-34.0); Mean Corpuscular Volume 85.3 fL (80-94); Mean Platelet Volume 10.3 fL (7.4-10.4); Monocytes # 0.3 10^3/uL (0.2-0.9); Neutrophils # 9.17 10^3/uL (1.8-7.7); Neutrophils % 90.8 %; Nucleated Red Blood Cells % 0 %; Platelet Count 248 10^3/cmm (130-400); Red Blood Count 4.09 10^6/uL (4.1-5.3); Red Cell Distribution Width 15.1 % (12.1-15.1); White Blood Count 10.1 10^3/uL (4.0-10.0)
[2020-07-19] MEDS: heparin 5,000 unit/mL INJ 1 mL 5000 UNIT SUBCUT ×3 (06:53→23:02)
[2020-07-19] MEDS: ALPRAZolam 0.5 mg Tablet PO (06:54)
[2020-07-19] MEDS: HYDROcodone-acetaminophen 5-325 mg Tablet 1 TAB PO ×3 (06:54→21:17)
[2020-07-19 07:59] LABS: Alanine Aminotransferase 18 U/L (0-41); Albumin Level 3.7 g/dL (3.5-5.2); Alkaline Phosphatase 144 IU/L (40-130); Anion Gap 19.1 (5-19); Aspartate Amino Transferase 22 U/L (0-40); Blood Urea Nitrogen 44 mg/dL (8-23); Carbon Dioxide 31 mmol/L (22-29); Chloride 89 mmol/L (98-107); Glucose 257 mg/dL (65-115); Osmolality Calculated 300 mOsm/kg (285-295); Potassium 4.1 mmol/L (3.5-5.1); Sodium 135 mmol/L (136-145); Total Bilirubin 0.2 mg/dL (0.15-1.2); Total Protein 6.7 g/dL (6.6-8.7)
--- NOTE | 2020-07-19 08:37 | PM.PN ---
Subjective Subjective: Interval history: Had 650 mL urine output overnight, on 3 L NC, normotensive, HR improved. Decreasing leukocytosis, worsening renal function. Complains of not being able to have a BM. Medications: Reviewed: Yes Medication Review Details: Active Medications Generic Name Dose Route Start Last Admin Trade Name Freq PRN Reason Stop Dose Admin Acetaminophen 650 mg 07/17/20 23:11 Acetaminophen 32 5 Mg Tablet PO Q6H PRN Mild/Mod Pain Or Temp >/= 101 Hydrocodone Bitart /Acetaminophen 1 tab 07/18/20 01:22 07/19/20 06:54 Hydrocodone-Acet aminophen 5-325 Mg Tablet PO 1 tab Q6H PRN Administration MODERATE PAIN Albuterol/Ipratrop ium 3 ml 07/18/20 00:00 07/19/20 08:04 Ipratropium-Albu terol 3 Ml Neb INHALATION 3 ml Q4H.RESPIRATORY S CH Administration Albuterol/Ipratrop ium 3 ml 07/17/20 23:11 Ipratropium-Albu terol 3 Ml Neb INHALATION Q4H PRN SHORTNESS OF YI TH Alprazolam 0.5 mg 07/18/20 01:57 07/19/20 06:54 Alprazolam 0.5 M g Tablet PO 0.5 mg Q4H PRN Administration ANXIETY Aspirin 81 mg 07/18/20 09:00 07/18/20 09:19 Aspirin 81 Mg Ec Tablet PO 81 mg DAILY APURVA Administration Atorvastatin Calci um 40 mg 07/18/20 21:00 07/18/20 20:41 Atorvastatin 40 Mg Tablet PO 40 mg BEDTIME APURVA Administration Clopidogrel Bisulf ate 75 mg 07/18/20 09:00 07/18/20 09:20 Clopidogrel 75 M g Tablet PO 75 mg DAILY APURVA Administration Famotidine 20 mg 07/18/20 10:00 07/18/20 18:36 Famotidine 20 Mg Tablet PO 20 mg BID APURVA Administration Finasteride 5 mg 07/18/20 21:00 07/18/20 20:40 Finasteride 5 Mg Tablet PO 5 mg BEDTIME APURVA Administration Furosemide 40 mg 07/18/20 10:00 07/18/20 20:41 Furosemide 10 Mg /Ml Sdv 4ml IVP 40 mg Q12H APURVA Administration Heparin Sodium (Be ef Lung) 5,000 unit 07/17/20 23:11 07/19/20 06:53 Heparin 5,000 Un it/Ml Inj 1 Ml SUBCUT 5,000 unit Q8H APURVA Administration Levofloxacin/Dextr ose 750 mg in 150 mls @ 100 mls/hr 07/17/20 23:11 07/18/20 01:37 Levaquin-D5w IV Infused Q48H APURVA Infusion Protocol Methylprednisolone Sodium Succinate 60 mg 07/18/20 05:30 07/19/20 06:54 Methylprednisolo ne Sod Succ 125 Mg /2 Ml Inj IVP 60 mg Q6H APURVA Administration Metoprolol Tartrat e 25 mg 07/19/20 09:00 Metoprolol Tartr ate 25 Mg Tablet PO BID APURVA Sertraline HCl 25 mg 07/18/20 09:00 07/18/20 09:19 Sertraline 50 Mg Tablet PO 25 mg DAILY APURVA Administration Tamsulosin HCl 0.4 mg 07/18/20 09:00 07/18/20 09:19 Tamsulosin 0.4 M g Capsule PO 0.4 mg DAILY APURVA Administration No Known Allergies Allergy (Verified 07/17/20 23:42) Vitals/I&O/Wt Last Vital Signs Temp 97.6 F 07/19/20 06:56 Pulse 107 H 07/19/20 06:56 Resp 28 H 07/19/20 06:56 BP 133/104 07/19/20 06:56 Pulse Ox 97 07/19/20 06:56 07/18/20 07/19/20 07/19/20 22:59 06:59 14:59 Intake Total 200 / 200 150 / 350 240 / 240 Output Total 1150 / 1950 500 / 2450 Balance -950 / -1750 -350 / -2100 240 / 240 Weight last 48 hrs Weight 92.079 kg Weight 92.17 kg Weight 122.47 kg Physical Exam Const: COMMON NORMALS: no acute distress and alert GENERAL APPEARANCE: cooperative and comfortable NUTRITIONAL APPEARANCE: obese centrally obese ORIENTATION/CONSCIOUSNESS: Yes awake and Yes confused OTHER: -appears appropriate for age HENMT: COMMON NORMALS: normocephalic, atraumatic, hearing grossly normal bilaterally and moist oral mucous membranes HEAD & SCALP: normocephalic and atraumatic Eye: COMMON NORMALS: Equal, round and reactive pupils present, EOMs intact bilaterally and conjunctivae normal CONJUNCTIVA: Yes conjunctivae normal PUPIL: Yes Equal, round and reactive pupils present Neck/C-Spine: COMMON NORMALS: full ROM GENERAL: Yes normal visual inspection and Yes trachea midline Resp: COMMON NORMALS: normal respiratory effort, No retractions and No use of accessory muscles EFFORT & INSPECTION: Yes able to speak in complete sentences, Yes symmetric chest movement and Yes tachypneic AUSCULTATION: diminished lung sounds OTHER: -on 3 L NC Cardio: COMMON NORMALS: regular rhythm, S1 normal heart sound present, S2 normal heart sound present and No murmurs present (Cardio) RATE: tachycardic (HR in the 100-120 range) RHYTHM: regular rhythm HEART SOUNDS: S1 normal heart sound present and S2 normal heart sound present GI: COMMON NORMALS: Normal to inspection, nondistended, normoactive bowel sounds present, Soft to palpation and non-tender INSPECTION: Yes central obesity PALPATION: Yes Soft to palpation : BLADDER/KIDNEY EXAM: Yes catheter in place Extremity: COMMON NORMALS: normal to inspection, full ROM and no pedal edema NARRATIVE EXTREMITY EXAM: -1+ pitting edema of bilateral LEs Neuro: COMMON NORMALS: moves all extremities, no focal motor deficits and no sensory deficits noted SENSORIUM/ORIENTATION: Yes alert Psych: COMMON NORMALS: cooperative, normal affect and speech normal SPEECH: Yes normal speech OTHER: -mental status tends to wax and wane with intermittent confusion, repeatedly asking the same questions Skin: COMMON NORMALS: no rashes or lesions noted, no jaundice, no petechiae and no mottling GENERAL SKIN EXAM: no rashes or lesions noted Urinary Catheter Management^: Drake: Cath Placed During This Visit: yes Reason for Continuing Indwelling Catheter: Accurate Measurement of Urinary Output in Critically Ill Patients Urinary Catheter Date of Insertion: 07/17/20 Urinary Catheter Time of Insertion: 22:20 Data : 07/19/20 04:20 07/19/20 04:20 A&P Assessment and plan (1) CHF exacerbation: -acute CHF exacerbation as evidenced by dyspnea, LE edema, BNP elevation -hold IV diuresis with Lasix due to renal impairment -daily weights, monitor Is & Os -Echo: EF=65%, mild , trace to mild TR, trace OH -continue to monitor vital signs; noted tachycardia -continue to monitor respiratory status, supplemental oxygen as needed Status: Acute Qualifiers: Heart failure type: diastolic Qualified Code(s): I50.33 - Acute on chronic diastolic (congestive) heart failure (2) COPD exacerbation: -is oxygen dependent at baseline, 3 L NC -CXR noted -on steroids, Neb treatments, pulmonary toilet -continue to monitor respiratory status Status: Acute (3) Acute kidney injury superimposed on CKD: -has noted MARY BETH on CKD stage 3; baseline Cr is around 1.5-1.6 -closely monitor lytes and renal function with diuresis -has chronic indwelling Drake catheter; changed this admission, continue to monitor urine output -avoid nephrotoxins, renally dose meds Status: Acute (4) Abnormal urine cytology: -UA with noted LE, pyuria, bacteria -does have hx of ESBL E.coli -on empiric antibiotics -urine cx: GNRs, pending ID & sensitivity Status: Acute (5) Hypertension: -continue to monitor vital signs -continue oral antihypertensives Status: Chronic Qualifiers: Hypertension type: essential hypertension Qualified Code(s): I10 - Essential (primary) hypertension Additional A&P Information -hx of mild aortic stenosis -BPH hx; continue finasteride, has chronic indwelling Drake catheter, follows up with Dr. Bustillos -Obesity: BMI-31 kg/m2 -Dyslipidemia; continue statin -NIDDM type II; accucheks, ISS -OA, chronic pain; pain control as needed -hx of paroxysmal atrial fibrillation with RVR; on BB, telemetry monitoring -difficulty swallowing; ST evaluation appreciated; no overt aspiration, regular diet and liquid consistency recommended; aspiration precautions -constipation, on bowel regimen -cardiac consistent carb diet as tolerated -GI ppx with famotidine -DVT ppx with heparin -Dispo: home with hospice ([facility]) -Code status: DNR/DNI; ok with ICU admission Attestations Medical Necessity Statement*: Patient requires hospitalization for continued treatment of complicated UTI, monitoring of renal function with diuresis, monitoring of hemodynamic and respiratory status. Time Spent in Patient Care: 16 - 35 minutes (>than 50% of time spent in counselling and/or direct pt care on unit). Coding Level of Care Code Acute Contour Band Saw Operator Vertical for Andriy Fwd Exam Comprehensive Diagnoses CHF exacerbation I50.33 Heart failure type: diastolic COPD exacerbation J44.1 Acute kidney injury superimposed on CKD N17.9; N18.9 Abnormal urine cytology R82.89 Hypertension I10 Hypertension type: essential hypertension
[2020-07-19] MEDS: tamsulosin 0.4 mg Capsule PO (10:20)
[2020-07-19] MEDS: famotidine 20 mg Tablet PO ×2 (10:21→17:35)
[2020-07-19] MEDS: aspirin 81 mg EC Tablet PO (10:23)
[2020-07-19] MEDS: metoprolol tartrate 25 mg Tablet PO ×2 (10:24→17:35)
[2020-07-19] MEDS: clopidogrel 75 mg Tablet PO (10:24)
--- NOTE | 2020-07-19 10:45 | PC.CHAP ---
Pastoral Care Encounter/Spiritual Assessment Type of Contact [] Declined travel accommodations rater visit [] Patient/Family/Request visit [] Outpatient visit [] Follow-up visit [] Physician referral [] Code/Alert [] Routine visit [] Staff referral [] Actively dying [XX] Patient sleeping [] Family support [] [] Out of room [] Palliative care [] [] Receiving care in room [] Pre-surgical visit [] Trauma [] Long length of stay [] ICU visit [] Other: Relational/Emotional Strength [] Patient feels connected with others/family/visitors/staff [] Distress [] Loneliness/isolation [] Abandonment Spirituality of Patient [] Person of Rosio [] Attends Gnosticism of their Rosio [] Believes in Prayer [] Reads Bible or Quaker materials [] There are Spiritual issues to be addressed M1A1 Tank Crewman Interventions [] Prayer [] Active listening [] Non-anxious presence [] Spiritual/emotional support [] Crisis/trauma care [] Spiritual counseling [] Bereavement support [] Provided bereavement packet [] Provided Bible/devotional materials [] Provided toy/stuffed animal, coloring book to patient or family member [] Provided Communion [] Anointing/[place] [] Salvation [] Completed spiritual assessment [] Other: Impact on Illness or Injury [] Angry [] Fearful [] Anxious [] Often cries [] Exhaustion [] Unable to work [] Unable to attend jain [] Unable to walk/stand [] Unable to read [] Unable to drive [] Unable to eat/drink [] Unable to sleep [] Unable to be with family [] Patient intubated [] Other: Summary Time spent with patient
[2020-07-19] MEDS: sennosides-docusate Tablet 2 TAB PO ×2 (11:05→17:35)
[2020-07-19] MEDS: polyethylene glycol 3350 Pkt 17 gm PO (12:18)
--- NOTE | 2020-07-19 15:38 | PC.NURSE ---
hospice nurse at bedside [facility] at bedside and pt's son at bedside.
[2020-07-19] MEDS: atorvastatin 40 mg Tablet PO (21:18)
[2020-07-19] MEDS: finasteride 5 mg Tablet PO (21:18)
[2020-07-19] MEDS: bisacodyl 10 mg Supp PR (21:29)
[2020-07-19] MEDS: levofloxacin-dextrose 5 % 750 MG/150 ML PREMIX 100 MG IV (23:02)
[2020-07-20] VITALS (16 sets, daily range): BP systolic 121–154; BP diastolic 69–87; PULSE 71–106; RESP 18–23; TEMP 36.1–36.6; O2SAT 92–98
[2020-07-20] MEDS: ALPRAZolam 0.5 mg Tablet PO ×3 (00:55→22:20)
[2020-07-20 05:12] LABS: Basophils % 0.1 %; Hematocrit 34.5 % (42.0-52.0); Hemoglobin 10.9 g/dL (11.7-16.6); Lymphocytes # 0.4 10^3/uL (0.8-4.8); Lymphocytes % 3.3 %; Mean Corpuscular HGB Conc 31.6 g/dL (30.0-36.0); Mean Corpuscular Hemoglobin 26.9 pg (28.0-34.0); Mean Corpuscular Volume 85.2 fL (80-94); Monocytes # 0.4 10^3/uL (0.2-0.9); Monocytes % 3.2 %; Neutrophils # 11.62 10^3/uL (1.8-7.7); Neutrophils % 92.8 %; Nucleated Red Blood Cells % 0 %; Platelet Count 246 10^3/cmm (130-400); Red Blood Count 4.05 10^6/uL (4.1-5.3); Red Cell Distribution Width 15.2 % (12.1-15.1); White Blood Count 12.5 10^3/uL (4.0-10.0)
[2020-07-20 05:27] LABS: Alanine Aminotransferase 30 U/L (0-41); Albumin Level 3.5 g/dL (3.5-5.2); Alkaline Phosphatase 132 IU/L (40-130); Aspartate Amino Transferase 24 U/L (0-40); Blood Urea Nitrogen 49 mg/dL (8-23); Calcium 9.2 mg/dL (8.5-10.5); Carbon Dioxide 33 mmol/L (22-29); Chloride 89 mmol/L (98-107); Globulin 2.7 g/dL (1.3-4.6); Glucose 253 mg/dL (65-115); Osmolality Calculated 298 mOsm/kg (285-295); Sodium 133 mmol/L (136-145); Total Bilirubin 0.2 mg/dL (0.15-1.2); Total Protein 6.2 g/dL (6.6-8.7)
[2020-07-20] MEDS: heparin 5,000 unit/mL INJ 1 mL 5000 UNIT SUBCUT ×3 (06:40→22:12)
[2020-07-20] MEDS: ipratropium-albuterol 3 mL Neb INHALATION ×5 (07:59→23:40)
--- NOTE | 2020-07-20 08:43 | P.PN_ITS ---
Subjective Subjective: Interval history: Had 850 mL urine output overnight, on 3 L NC, had large BM overnight, afebrile. Increased leukocytosis, improved renal function. Notified that urine cx positive for ESBL E.coli; start on isolation precautions and primaxin. Has had some cramping and vague abdominal discomfort, bowel regimen held this AM. Medications: Reviewed: Yes Medication Review Details: Active Medications Generic Name Dose Route Start Last Admin Trade Name Freq PRN Reason Stop Dose Admin Acetaminophen 650 mg 07/17/20 23:11 Acetaminophen 32 5 Mg Tablet PO Q6H PRN Mild/Mod Pain Or Temp >/= 101 Hydrocodone Bitart /Acetaminophen 1 tab 07/18/20 01:22 07/19/20 21:17 Hydrocodone-Acet aminophen 5-325 Mg Tablet PO 1 tab Q6H PRN Administration MODERATE PAIN Albuterol/Ipratrop ium 3 ml 07/18/20 00:00 07/20/20 08:00 Ipratropium-Albu terol 3 Ml Neb INHALATION 3 ml Q4H.RESPIRATORY S CH Administration Albuterol/Ipratrop ium 3 ml 07/17/20 23:11 Ipratropium-Albu terol 3 Ml Neb INHALATION Q4H PRN SHORTNESS OF YI TH Alprazolam 0.5 mg 07/18/20 01:57 07/20/20 00:55 Alprazolam 0.5 M g Tablet PO 0.5 mg Q4H PRN Administration ANXIETY Aspirin 81 mg 07/18/20 09:00 07/19/20 10:23 Aspirin 81 Mg Ec Tablet PO 81 mg DAILY APURVA Administration Atorvastatin Calci um 40 mg 07/18/20 21:00 07/19/20 21:18 Atorvastatin 40 Mg Tablet PO 40 mg BEDTIME APURVA Administration Bisacodyl 10 mg 07/19/20 20:55 07/19/20 21:29 Bisacodyl 10 Mg Supp TN 10 mg DAILY APURVA Administration Clopidogrel Bisulf ate 75 mg 07/18/20 09:00 07/19/20 10:24 Clopidogrel 75 M g Tablet PO 75 mg DAILY APURVA Administration Famotidine 20 mg 07/18/20 10:00 07/19/20 17:35 Famotidine 20 Mg Tablet PO 20 mg BID APURVA Administration Finasteride 5 mg 07/18/20 21:00 07/19/20 21:18 Finasteride 5 Mg Tablet PO 5 mg BEDTIME APURVA Administration Furosemide 40 mg 07/18/20 10:00 07/18/20 20:41 Furosemide 10 Mg /Ml Sdv 4ml IVP 40 mg Q12H APURVA Administration Heparin Sodium (Be ef Lung) 5,000 unit 07/17/20 23:11 07/20/20 06:40 Heparin 5,000 Un it/Ml Inj 1 Ml SUBCUT 5,000 unit Q8H APURVA Administration Levofloxacin/Dextr ose 750 mg in 150 mls @ 100 mls/hr 07/17/20 23:11 07/20/20 01:05 Levaquin-D5w IV Infused Q48H APURVA Infusion Protocol Lactulose 10 gm 07/20/20 09:00 Lactulose Oral L iq 20 Gm/30 Ml Udc PO DAILY APURVA Methylprednisolone Sodium Succinate 60 mg 07/18/20 05:30 07/20/20 05:23 Methylprednisolo ne Sod Succ 125 Mg /2 Ml Inj IVP 60 mg Q6H APURVA Administration Metoprolol Tartrat e 25 mg 07/19/20 09:00 07/19/20 17:35 Metoprolol Tartr ate 25 Mg Tablet PO 25 mg BID APURVA Administration Polyethylene Glyco l 17 gm 07/19/20 10:35 07/19/20 12:18 Polyethylene Gly col 3350 Pkt 17 Gm PO 17 gm DAILY APURVA Administration Senna/Docusate Sod ium 2 tab 07/19/20 10:35 07/19/20 17:35 Sennosides-Docus ate Tablet PO 2 tab BID APURVA Administration Sertraline HCl 25 mg 07/18/20 09:00 07/19/20 10:35 Sertraline 50 Mg Tablet PO Not Given DAILY APURVA Tamsulosin HCl 0.4 mg 07/18/20 09:00 07/19/20 10:20 Tamsulosin 0.4 M g Capsule PO 0.4 mg DAILY APURVA Administration No Known Allergies Allergy (Verified 07/17/20 23:42) Vitals/I&O/Wt Last Vital Signs Temp 97.5 F L 07/20/20 08:00 Pulse 103 H 07/20/20 08:05 Resp 20 H 07/20/20 08:02 BP 146/87 07/20/20 08:00 Pulse Ox 92 07/20/20 08:02 0107/20/20 07/20/20 22:59 06:59 14:59 Intake Total 120 / 600 150 / 750 120 / 120 Output Total 875 / 875 850 / 1725 Balance -755 / -275 -700 / -975 120 / 120 Weight last 48 hrs Weight 91.654 kg Physical Exam Const: COMMON NORMALS: no acute distress and alert GENERAL APPEARANCE: cooperative and comfortable NUTRITIONAL APPEARANCE: obese centrally obese ORIENTATION/CONSCIOUSNESS: Yes awake and Yes confused OTHER: -appears appropriate for age, resting quietly in bed HENMT: COMMON NORMALS: normocephalic, atraumatic, hearing grossly normal bilaterally and moist oral mucous membranes HEAD & SCALP: normocephalic and atraumatic Eye: COMMON NORMALS: Equal, round and reactive pupils present, EOMs intact bilaterally and conjunctivae normal CONJUNCTIVA: Yes conjunctivae normal PUPIL: Yes Equal, round and reactive pupils present Neck/C-Spine: COMMON NORMALS: full ROM GENERAL: Yes normal visual inspection and Yes trachea midline Resp: COMMON NORMALS: normal respiratory effort, No retractions and No use of accessory muscles EFFORT & INSPECTION: Yes able to speak in complete s entences, Yes symmetric chest movement and Yes tachypneic AUSCULTATION: diminished lung sounds OTHER: -on 3 L NC Cardio: COMMON NORMALS: regular rhythm, S1 normal heart sound present, S2 normal heart sound present and No murmurs present (Cardio) RATE: tachycardic (HR in the 100-120 range) RHYTHM: regular rhythm HEART SOUNDS: S1 normal heart sound present and S2 normal heart sound present GI: COMMON NORMALS: Normal to inspection, nondistended, normoactive bowel sounds present, Soft to palpation and non-tender INSPECTION: Yes central obesity PALPATION: Yes Soft to palpation : BLADDER/KIDNEY EXAM: Yes catheter in place Extremity: COMMON NORMALS: normal to inspection, full ROM and no pedal edema NARRATIVE EXTREMITY EXAM: -trace pitting edema of bilateral LEs Neuro: COMMON NORMALS: moves all extremities, no focal motor deficits and no sensory deficits noted SENSORIUM/ORIENTATION: Yes alert Psych: COMMON NORMALS: cooperative, normal affect and speech normal SPEECH: Yes normal speech OTHER: -mental status tends to wax and wane with intermittent confusion, repeatedly asking the same questions Skin: COMMON NORMALS: no rashes or lesions noted, no jaundice, no petechiae and no mottling GENERAL SKIN EXAM: no rashes or lesions noted Urinary Catheter Management^: Drake: Cath Placed During This Visit: yes Reason for Continuing Indwelling Catheter: Accurate Measurement of Urinary Output in Critically Ill Patients Urinary Catheter Date of Insertion: 07/17/20 Urinary Catheter Time of Insertion: 22:20 Data : 07/20/20 04:20 07/20/20 04:20 Micro: Microbiology 07/17/20 18:40 Urine Culture - Preliminary Urine,Clean Catch Gram Negative Rods A&P Assessment and plan (1) CHF exacerbation: -acute CHF exacerbation as evidenced by dyspnea, LE edema, BNP elevation -hold IV diuresis with Lasix due to renal impairment -daily weights, monitor Is & Os -Echo: EF=65%, mild , trace to mild TR, trace TN -continue to monitor vital signs; noted tachycardia -continue to monitor respiratory status, supplemental oxygen as needed Status: Acute Qualifiers: Heart failure type: diastolic Qualified Code(s): I50.33 - Acute on chronic diastolic (congestive) heart failure (2) COPD exacerbation: -is oxygen dependent at baseline, 3 L NC -CXR noted -on steroids, Neb treatments, pulmonary toilet -continue to monitor respiratory status Status: Acute (3) Acute kidney injury superimposed on CKD: -has noted MARY BETH on CKD stage 3; baseline Cr is around 1.5-1.6 -closely monitor lytes and renal function with diuresis -has chronic indwelling Drake catheter; changed this admission, continue to mo nitor urine output -avoid nephrotoxins, renally dose meds Status: Acute (4) Abnormal urine cytology: -UA with noted LE, pyuria, bacteria -does have hx of ESBL E.coli -on empiric antibiotics -urine cx: GNRs, pending ID & sensitivity Status: Acute (5) Hypertension: -continue to monitor vital signs -continue oral antihypertensives Status: Chronic Qualifiers: Hypertension type: essential hypertension Qualified Code(s): I10 - Essential (primary) hypertension Additional A&P Information -hx of mild aortic stenosis -BPH hx; continue finasteride, has chronic indwelling Drake catheter, follows up with Dr. Bustillos -Obesity: BMI-31 kg/m2 -Dyslipidemia; continue statin -NIDDM type II; accucheks, ISS -OA, chronic pain; pain control as needed -hx of paroxysmal atrial fibrillation with RVR; on BB, telemetry monitoring -difficulty swallowing; ST evaluation appreciated; no overt aspiration, regular diet and liquid consistency recommended; aspiration precautions -constipation, on bowel regimen -cardiac consistent carb diet as tolerated -GI ppx with famotidine -DVT ppx with heparin -Dispo: home with hospice ([facility]) -Code status: DNR/DNI; ok with ICU admission Attestations Medical Necessity Statement*: Patient requires hospitalization for continued treatment of UTI, acute COPD exacerbation, monitoring of renal function. Time Spent in Patient Care: 16 - 35 minutes (>than 50% of time spent in counselling and/or direct pt care on unit) . 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
--- NOTE | 2020-07-20 09:23 | PC.SOCIAL ---
IM follow up explained and copy provided. Pt verbalized understanding and has no questions.
[2020-07-20] MEDS: tamsulosin 0.4 mg Capsule PO (09:24)
[2020-07-20] MEDS: metoprolol tartrate 25 mg Tablet PO ×2 (09:24→18:34)
[2020-07-20] MEDS: aspirin 81 mg EC Tablet PO (09:24)
[2020-07-20] MEDS: clopidogrel 75 mg Tablet PO (09:24)
[2020-07-20] MEDS: famotidine 20 mg Tablet PO ×2 (09:24→18:36)
[2020-07-20] MEDS: HYDROcodone-acetaminophen 5-325 mg Tablet 1 TAB PO ×2 (09:26→19:55)
[2020-07-20] MEDS: ondansetron 2 mg/ML SDV 2 mL 4 MG IVP (18:34)
[2020-07-20] MEDS: finasteride 5 mg Tablet PO (19:54)
[2020-07-20] MEDS: atorvastatin 40 mg Tablet PO (19:55)
[2020-07-21] VITALS (17 sets, daily range): BP systolic 124–163; BP diastolic 70–87; PULSE 72–93; RESP 18–27; TEMP 36.1–36.6; O2SAT 91–97
[2020-07-21] MEDS: ipratropium-albuterol 3 mL Neb INHALATION ×5 (04:23→20:04)
[2020-07-21 05:22] LABS: Hematocrit 34.9 % (42.0-52.0); Lymphocytes # 0.4 10^3/uL (0.8-4.8); Lymphocytes % 4.8 %; Mean Corpuscular HGB Conc 31.5 g/dL (30.0-36.0); Mean Corpuscular Hemoglobin 26.8 pg (28.0-34.0); Mean Corpuscular Volume 85.1 fL (80-94); Mean Platelet Volume 9.8 fL (7.4-10.4); Monocytes # 0.3 10^3/uL (0.2-0.9); Monocytes % 3.4 %; Neutrophils % 90.7 %; Nucleated Red Blood Cells % 0 %; Platelet Count 204 10^3/cmm (130-400); White Blood Count 8.9 10^3/uL (4.0-10.0)
[2020-07-21] MEDS: heparin 5,000 unit/mL INJ 1 mL 5000 UNIT SUBCUT ×3 (05:40→21:43)
[2020-07-21 06:27] LABS: Anion Gap 15.2 (5-19); Blood Urea Nitrogen 50 mg/dL (8-23); Calcium 9.1 mg/dL (8.5-10.5); Carbon Dioxide 32 mmol/L (22-29); Chloride 91 mmol/L (98-107); Glucose 259 mg/dL (65-115); Osmolality Calculated 300 mOsm/kg (285-295); Potassium 4.2 mmol/L (3.5-5.1); Sodium 134 mmol/L (136-145)
[2020-07-21] MEDS: aspirin 81 mg EC Tablet PO (08:17)
[2020-07-21] MEDS: famotidine 20 mg Tablet PO ×2 (08:17→18:19)
[2020-07-21] MEDS: tamsulosin 0.4 mg Capsule PO (08:17)
[2020-07-21] MEDS: ondansetron 2 mg/ML SDV 2 mL 4 MG IVP ×2 (08:18→15:20)
[2020-07-21] MEDS: metoprolol tartrate 25 mg Tablet PO ×2 (08:18→18:21)
[2020-07-21] MEDS: clopidogrel 75 mg Tablet PO (08:18)
--- NOTE | 2020-07-21 08:29 | P.PN_ITS ---
Subjective Subjective: Interval history: VSS, on 3 L NC, had 900 mL urine output overnight, improved renal function and decreased alkalosis, diuretics on hold. Resting in bed, again when asked how he is doing today, he mentions not too good. He continues to have some abdominal discomfort. Medications: Reviewed: Yes Medication Review Details: Active Medications Generic Name Dose Route Start Last Admin Trade Name Freq PRN Reason Stop Dose Admin Acetaminophen 650 mg 07/17/20 23:11 Acetaminophen 32 5 Mg Tablet PO Q6H PRN Mild/Mod Pain Or Temp >/= 101 Hydrocodone Bitart /Acetaminophen 1 tab 07/18/20 01:22 07/20/20 19:55 Hydrocodone-Acet aminophen 5-325 Mg Tablet PO 1 tab Q6H PRN Administration MODERATE PAIN Albuterol/Ipratrop ium 3 ml 07/18/20 00:00 07/21/20 06:45 Ipratropium-Albu terol 3 Ml Neb INHALATION 3 ml Q4H.RESPIRATORY S CH Administration Albuterol/Ipratrop ium 3 ml 07/17/20 23:11 Ipratropium-Albu terol 3 Ml Neb INHALATION Q4H PRN SHORTNESS OF YI TH Alprazolam 0.5 mg 07/18/20 01:57 07/20/20 22:20 Alprazolam 0.5 M g Tablet PO 0.5 mg Q4H PRN Administration ANXIETY Aspirin 81 mg 07/18/20 09:00 07/21/20 08:17 Aspirin 81 Mg Ec Tablet PO 81 mg DAILY APURVA Administration Atorvastatin Calci um 40 mg 07/18/20 21:00 07/20/20 19:55 Atorvastatin 40 Mg Tablet PO 40 mg BEDTIME APURVA Administration Bisacodyl 10 mg 07/19/20 20:55 07/20/20 09:28 Bisacodyl 10 Mg Supp WA Not Given DAILY APURVA Clopidogrel Bisulf ate 75 mg 07/18/20 09:00 07/21/20 08:18 Clopidogrel 75 M g Tablet PO 75 mg DAILY APURVA Administration Famotidine 20 mg 07/18/20 10:00 07/21/20 08:17 Famotidine 20 Mg Tablet PO 20 mg BID APURVA Administration Finasteride 5 mg 07/18/20 21:00 07/20/20 19:54 Finasteride 5 Mg Tablet PO 5 mg BEDTIME APURVA Administration Furosemide 40 mg 07/18/20 10:00 07/18/20 20:41 Furosemide 10 Mg /Ml Sdv 4ml IVP 40 mg Q12H APURVA Administration Heparin Sodium (Be ef Lung) 5,000 unit 07/17/20 23:11 07/21/20 05:40 Heparin 5,000 Un it/Ml Inj 1 Ml SUBCUT 5,000 unit Q8H APURVA Administration Imipenem/Cilastati n Sodium 250 100 mls @ 200 mls /hr 07/20/20 22:00 07/21/20 05:01 mg/ Sodium Chlor tamanna IV Infused Q6H APURVA Infusion Lactulose 10 gm 07/20/20 09:00 07/20/20 09:28 Lactulose Oral L iq 20 Gm/30 Ml Udc PO Not Given DAILY [facility] Methylprednisolone Sodium Succinate 60 mg 07/18/20 05:30 07/21/20 04:13 Methylprednisolo ne Sod Succ 125 Mg /2 Ml Inj IVP 60 mg Q6H [facility] Administration Metoprolol Tartrat e 25 mg 07/19/20 09:00 07/21/20 08:18 Metoprolol Tartr ate 25 Mg Tablet PO 25 mg BID [facility] Administration Ondansetron HCl 4 mg 07/20/20 20:00 07/21/20 08:18 Ondansetron 2 Mg /Ml Sdv 2 Ml IVP 4 mg Q6H PRN Administration NAUSEA AND VOMITI NG Polyethylene Glyco l 17 gm 07/19/20 10:35 07/20/20 09:28 Polyethylene Gly col 3350 Pkt 17 Gm PO Not Given DAILY [facility] Senna/Docusate Sod ium 2 tab 07/19/20 10:35 07/20/20 18:37 Sennosides-Docus ate Tablet PO Not Given BID [facility] Sertraline HCl 25 mg 07/18/20 09:00 07/20/20 09:28 Sertraline 50 Mg Tablet PO Not Given DAILY [facility] Tamsulosin HCl 0.4 mg 07/18/20 09:00 07/21/20 08:17 Tamsulosin 0.4 M g Capsule PO 0.4 mg DAILY APUVRA Administration No Known Allergies Allergy (Verified 07/17/20 23:42) Vitals/I&O/Wt Last Vital Signs Temp 96.9 F L 07/21/20 07:37 Pulse 89 01/11/21 07:37 Resp 20 H 07/21/20 07:37 BP 153/82 07/21/20 07:37 Pulse Ox 91 07/21/20 07:37 07/20/20 07/21/20 07/21/20 22:59 06:59 14:59 Intake Total 200 / 660 400 / 1060 Output Total 1500 / 1500 900 / 2400 Balance -1300 / -840 -500 / -1340 Weight last 48 hrs Weight 91.58 kg Weight 89.868 kg Weight 91.654 kg Physical Exam Const: COMMON NORMALS: no acute distress and alert GENERAL APPEARANCE: cooperative and comfortable NUTRITIONAL APPEARANCE: obese centrally obese ORIENTATION/CONSCIOUSNESS: Yes awake and Yes confused OTHER: -appears appropriate for age, resting quietly in bed HENMT: COMMON NORMALS: normocephalic, atraumatic, hearing grossly normal bilaterally and moist oral mucous membranes HEAD & SCALP: normocephalic and atraumatic Eye: COMMON NORMALS: Equal, round and reactive pupils present, EOMs intact bilaterally and conjunctivae normal CONJUNCTIVA: Yes conjunctivae normal PUPIL: Yes Equal, round and reactive pupils present Neck/C-Spine: COMMON NORMALS: full ROM GENERAL: Yes normal visual inspection and Yes trachea midline Resp: COMMON NORMALS: normal respiratory effort, No retractions and No use of accessory muscles EFFORT & INSPECTION: Yes able to speak in complete sentences, Yes symmetric chest movement and Yes tachypneic AUSCULTATION: diminished lung sounds OTHER: -on 3 L NC Cardio: COMMON NORMALS: regular rhythm, S1 normal heart sound present, S2 normal heart sound present and No murmurs present (Cardio) RATE: tachycardic (HR in the 100-120 range) RHYTHM: regular rhythm HEART SOUNDS: S1 normal heart sound present and S2 normal heart sound present GI: COMMON NORMALS: Normal to inspection, nondistended, normoactive bowel sounds present, Soft to palpation and non-tender INSPECTION: Yes central obesity PALPATION: Yes Soft to palpation : BLADDER/KIDNEY EXAM: Yes catheter in place Extremity: COMMON NORMALS: normal to inspection, full ROM and no pedal edema NARRATIVE EXTREMITY EXAM: -trace pitting edema of bilateral LEs Neuro: COMMON NORMALS: moves all extremities, no focal motor deficits and no sensory deficits noted SENSORIUM/ORIENTATION: Yes alert Psych: COMMON NORMALS: cooperative, normal affect and speech normal SPEECH: Yes normal speech OTHER: -mental status tends to wax and wane with intermittent confusion, repeatedly asking the same questions Skin: COMMON NORMALS: no rashes or lesions noted, no jaundice, no petechiae and no mottling GENERAL SKIN EXAM: no rashes or lesions noted Urinary Catheter Management^: Drake: Cath Placed During This Visit: yes Reason for Continuing Indwelling Catheter: Chronic Indwelling Urinary Catheter on Admission Urinary Catheter Date of Insertion: 07/17/20 Urinary Catheter Time of Insertion: 22:20 Data : 07/21/20 05:03 07/21/20 05:03 Micro: Microbiology 07/17/20 18:40 Urine Culture - Final Urine,Clean Catch Escherichia coli esbl A&P Assessment and plan (1) CHF exacerbation: -acute CHF exacerbation as evidenced by dyspnea, LE edema, BNP elevation -renal function improved and clinically compensated, resume oral lasix -daily weights, monitor Is & Os -Echo: EF=65%, mild , trace to mild TR, trace [place] -continue to monitor vital signs; noted tachycardia -continue to monitor respiratory status, supplemental oxygen as needed Status: Resolved Qualifiers: Heart failure type: diastolic Qualified Code(s): I50.33 - Acute on chronic diastolic (congestive) heart failure (2) COPD exacerbation: -is oxygen dependent at baseline, 3 L NC -CXR noted -on steroids, Neb treatments, pulmonary toilet -continue to monitor respiratory status Status: Acute (3) Acute kidney injury superimposed on CKD: -has noted MARY BETH on CKD stage 3; baseline Cr is around 1.5-1.6. MARY BETH resolved -closely monitor lytes and renal function with diuresis -has chronic indwelling Drake catheter; changed this admission, continue to monitor urine output -avoid nephrotoxins, renally dose meds Status: Acute (4) Abnormal urine cytology: -UA with noted LE, pyuria, bacteria -does have hx of ESBL E.coli -on primaxin -urine cx: ESBL E.coli, sensitivity noted -contact isolation precautions Status: Acute (5) Hypertension: -continue to monitor vital signs -continue oral antihypertensives Status: Chronic Qualifiers: Hypertension type: essential hypertension Qualified Code(s): I10 - Essential (primary) hypertension Additional A&P Information -hx of mild aortic stenosis -BPH hx; continue finasteride, has chronic indwelling Drake catheter, follows up with Dr. Bustillos -Obesity: BMI-31 kg/m2 -Dyslipidemia; continue statin -NIDDM type II; accucheks, ISS -OA, chronic pain; pain control as needed -hx of paroxysmal atrial fibrillation with RVR; on BB, telemetry monitoring -difficulty swallowing; ST evaluation appreciated; no overt aspiration, regular diet and liquid consistency recommended; aspiration precautions -constipation, on bowel regimen -cardiac consistent carb diet as tolerated -GI ppx with famotidine -DVT ppx with heparin -Dispo: home with hospice ([facility]) -Code status: DNR/DNI; ok with ICU admission Attestations Medical Necessity Statement*: Patient requires hospitalization for continued treatment of complicated UTI secondary to ESBL E. coli requiring IV antibiotic treatment. Time Spent in Patient Care: 16 - 35 minutes (>than 50% of time spent in counselling and/or direct pt care on unit) . 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
[2020-07-21] MEDS: HYDROcodone-acetaminophen 5-325 mg Tablet 1 TAB PO ×2 (09:00→19:42)
[2020-07-21] MEDS: predniSONE 20 mg Tablet 40 MG PO (09:01)
--- NOTE | 2020-07-21 11:45 | PC.NURSE ---
called supply room x2 to provide us with NS 100 ml bag for pt's antibiotic. It is due at 10 am.
[2020-07-21] MEDS: ALPRAZolam 0.5 mg Tablet PO ×2 (14:40→21:43)
[2020-07-21] MEDS: FUROsemide 20 mg Tablet PO (15:20)
[2020-07-21] MEDS: finasteride 5 mg Tablet PO (19:41)
[2020-07-21] MEDS: atorvastatin 40 mg Tablet PO (19:41)
--- NOTE | 2020-07-21 19:48 | PC.NURSE ---
dr durán approved that pt be moved to room 108..and be released from telemetry.
[2020-07-21 21:27] LABS: Glucose Point of Care 359 mg/dL (70-110)
[2020-07-22] VITALS (17 sets, daily range): BP systolic 98–138; BP diastolic 56–82; PULSE 72–96; RESP 18–22; TEMP 36.3–36.6; O2SAT 90–98
[2020-07-22] MEDS: ipratropium-albuterol 3 mL Neb INHALATION ×6 (00:05→20:08)
[2020-07-22 04:50] LABS: Blood Urea Nitrogen 50 mg/dL (8-23); Calcium 9.2 mg/dL (8.5-10.5); Carbon Dioxide 35 mmol/L (22-29); Chloride 96 mmol/L (98-107); Glucose 111 mg/dL (65-115); Osmolality Calculated 302 mOsm/kg (285-295); Sodium 139 mmol/L (136-145)
[2020-07-22 05:07] LABS: Anion Gap 11.8 (5-19); Potassium 3.8 mmol/L (3.5-5.1)
[2020-07-22] MEDS: heparin 5,000 unit/mL INJ 1 mL 5000 UNIT SUBCUT ×2 (06:01→14:45)
[2020-07-22 06:49] LABS: Glucose Point of Care 138 mg/dL (70-110)
[2020-07-22] MEDS: ondansetron 2 mg/ML SDV 2 mL 4 MG IVP (08:48)
[2020-07-22] MEDS: FUROsemide 20 mg Tablet PO ×2 (08:49→16:36)
[2020-07-22] MEDS: metoprolol tartrate 25 mg Tablet PO ×2 (08:49→17:44)
[2020-07-22] MEDS: predniSONE 20 mg Tablet 40 MG PO (08:49)
[2020-07-22] MEDS: aspirin 81 mg EC Tablet PO (08:50)
[2020-07-22] MEDS: famotidine 20 mg Tablet PO ×2 (08:50→17:44)
[2020-07-22] MEDS: tamsulosin 0.4 mg Capsule PO (08:50)
[2020-07-22] MEDS: clopidogrel 75 mg Tablet PO (08:50)
--- NOTE | 2020-07-22 09:31 | DCPLANNER ---
IMM completed 07/22/20 @ 0906. Copy of rights given to pt.
[2020-07-22] MEDS: ALPRAZolam 0.5 mg Tablet PO ×2 (11:40→20:54)
[2020-07-22 12:08] LABS: Glucose Point of Care 196 mg/dL (70-110)
--- NOTE | 2020-07-22 12:27 | PM.PN ---
Subjective Subjective: Interval history: Had 1600 mL urine output overnight, on 4 L NC, afebrile. Sitting in chair by bedside, no apparent distress but reports not feeling well when asked how he is doing. Medications: Reviewed: Yes Medication Review Details: Active Medications Generic Name Dose Route Start Last Admin Trade Name Freq PRN Reason Stop Dose Admin Acetaminophen 650 mg 07/17/20 23:11 Acetaminophen 32 5 Mg Tablet PO Q6H PRN Mild/Mod Pain Or Temp >/= 101 Hydrocodone Bitart /Acetaminophen 1 tab 07/18/20 01:22 07/21/20 19:42 Hydrocodone-Acet aminophen 5-325 Mg Tablet PO 1 tab Q6H PRN Administration MODERATE PAIN Albuterol/Ipratrop ium 3 ml 07/18/20 00:00 07/22/20 10:47 Ipratropium-Albu terol 3 Ml Neb INHALATION 3 ml Q4H.RESPIRATORY S CH Administration Albuterol/Ipratrop ium 3 ml 07/17/20 23:11 07/21/20 14:54 Ipratropium-Albu terol 3 Ml Neb INHALATION 3 ml Q4H PRN Administration SHORTNESS OF YI TH Alprazolam 0.5 mg 07/18/20 01:57 07/22/20 11:40 Alprazolam 0.5 M g Tablet PO 0.5 mg Q4H PRN Administration ANXIETY Aspirin 81 mg 07/18/20 09:00 07/22/20 08:50 Aspirin 81 Mg Ec Tablet PO 81 mg DAILY APURVA Administration Atorvastatin Calci um 40 mg 07/18/20 21:00 07/21/20 19:41 Atorvastatin 40 Mg Tablet PO 40 mg BEDTIME APURVA Administration Bisacodyl 10 mg 07/19/20 20:55 07/22/20 08:50 Bisacodyl 10 Mg Supp NC Not Given DAILY APURVA Clopidogrel Bisulf ate 75 mg 07/18/20 09:00 07/22/20 08:50 Clopidogrel 75 M g Tablet PO 75 mg DAILY APURVA Administration Dextrose 25 ml 07/21/20 19:05 Dextrose 50% Syr romel 50 Ml IVP ONCE PRN hypoglycemia prot ocol Protocol Dextrose 50 ml 07/21/20 19:05 Dextrose 50% Syr romel 50 Ml IVP PRN PRN hypoglycemia prot ocol Protocol Famotidine 20 mg 07/18/20 10:00 07/22/20 08:50 Famotidine 20 Mg Tablet PO 20 mg BID APURVA Administration Finasteride 5 mg 07/18/20 21:00 07/21/20 19:41 Finasteride 5 Mg Tablet PO 5 mg BEDTIME APURVA Administration Furosemide 20 mg 07/21/20 16:00 07/22/20 08:49 Furosemide 20 Mg Tablet PO 20 mg BID@08,16 APURVA Administration Glucagon 1 mg 07/21/20 19:05 Glucagon 1 Mg/Ml Inj 1 Ml IM ONCE PRN Adult Acute Hypog lycemia Prot. Protocol Heparin Sodium (Be ef Lung) 5,000 unit 07/17/20 23:11 07/22/20 06:01 Heparin 5,000 Un it/Ml Inj 1 Ml SUBCUT 5,000 unit Q8H APURVA Administration Imipenem/Cilastati n Sodium 500 100 mls @ 200 mls /hr 07/21/20 18:00 07/22/20 11:40 mg/ Sodium Chlor tamanna IV 200 mls/hr Q8H APURVA Administration Dextrose 500 mls @ 100 mls /hr 07/21/20 19:05 D5w IV ONCE PRN Adult Acute Hypog lycemia Prot Protocol Insulin Aspart 0 unit 07/21/20 21:00 07/22/20 07:48 Insulin Aspart 1 00 Unit/1 Ml SUBCUT Not Given WM&BEDTIME [facility] Protocol Metoprolol Tartrat e 25 mg 07/19/20 09:00 07/22/20 08:49 Metoprolol Tartr ate 25 Mg Tablet PO 25 mg BID APURVA Administration Ondansetron HCl 4 mg 07/20/20 20:00 07/22/20 08:48 Ondansetron 2 Mg /Ml Sdv 2 Ml IVP 4 mg Q6H PRN Administration NAUSEA AND VOMITI NG Polyethylene Glyco l 17 gm 07/19/20 10:35 07/22/20 08:50 Polyethylene Gly col 3350 Pkt 17 Gm PO Not Given DAILY APURVA Prednisone 40 mg 07/21/20 09:00 07/22/20 08:49 Prednisone 20 Mg Tablet PO 40 mg DAILY APURVA Administration Senna/Docusate Sod ium 1 tab 07/21/20 09:00 07/22/20 08:50 Sennosides-Docus ate Tablet PO Not Given BID APURVA Sertraline HCl 25 mg 07/18/20 09:00 07/22/20 08:50 Sertraline 50 Mg Tablet PO Not Given DAILY APURVA Tamsulosin HCl 0.4 mg 07/18/20 09:00 07/22/20 08:50 Tamsulosin 0.4 M g Capsule PO 0.4 mg DAILY APURVA Administration No Known Allergies Allergy (Verified 07/17/20 23:42) Vitals/I&O/Wt Last Vital Signs Temp 97.4 F L 07/22/20 08:00 Pulse 93 07/22/20 11:05 Resp 18 07/22/20 11:05 BP 116/56 07/22/20 08:00 Pulse Ox 90 07/22/20 11:05 07/21/20 07/22/20 07/22/20 22:59 06:59 14:59 Intake Total 460 / 1260 200 / 1460 120 / 120 Output Total 1600 / 1600 Balance 460 / 1260 -1400 / -140 120 / 120 Weight last 48 hrs Weight 90.718 kg Weight 91.58 kg Physical Exam Const: COMMON NORMALS: no acute distress and alert GENERAL APPEARANCE: cooperative and comfortable NUTRITIONAL APPEARANCE: obese centrally obese ORIENTATION/CONSCIOUSNESS: Yes awake and Yes confused OTHER: -appears appropriate for age, sitting in chair by bedside HENMT: COMMON NORMALS: normocephalic, atraumatic, hearing grossly normal bilaterally and moist oral mucous membranes HEAD & SCALP: normocephalic and atraumatic Eye: COMMON NORMALS: Equal, round and reactive pupils present, EOMs intact bilaterally and conjunctivae normal CONJUNCTIVA: Yes conjunctivae normal PUPIL: Yes Equal, round and reactive pupils present Neck/C-Spine: COMMON NORMALS: full ROM GENERAL: Yes normal visual inspection and Yes trachea midline Resp: COMMON NORMALS: normal respiratory effort, No retractions and No use of accessory muscles EFFORT & INSPECTION: Yes able to speak in complete sentences, Yes symmetric chest movement and Yes tachypneic AUSCULTATION: diminished lung sounds OTHER: -on 4 L NC Cardio: COMMON NORMALS: regular rhythm, S1 normal heart sound present, S2 normal heart sound present and No murmurs present (Cardio) RATE: tachycardic (HR in the 100-120 range) RHYTHM: regular rhythm HEART SOUNDS: S1 normal heart sound present and S2 normal heart sound present GI: COMMON NORMALS: Normal to inspection, nondistended, normoactive bowel sounds present, Soft to palpation and non-tender INSPECTION: Yes central obesity PALPATION: Yes Soft to palpation : BLADDER/KIDNEY EXAM: Yes catheter in place Extremity: COMMON NORMALS: normal to inspection, full ROM and no pedal edema NARRATIVE EXTREMITY EXAM: -trace pitting edema of bilateral LEs Neuro: COMMON NORMALS: moves all extremities, no focal motor deficits and no sensory deficits noted SENSORIUM/ORIENTATION: Yes alert Psych: COMMON NORMALS: cooperative, normal affect and speech normal SPEECH: Yes normal speech OTHER: -mental status tends to wax and wane with intermittent confusion, repeatedly asking the same questions Skin: COMMON NORMALS: no rashes or lesions noted, no jaundice, no petechiae and no mottling GENERAL SKIN EXAM: no rashes or lesions noted Urinary Catheter Management^: Drake: Cath Placed During This Visit: yes Reason for Continuing Indwelling Catheter: Chronic Indwelling Urinary Catheter on Admission Urinary Catheter Date of Insertion: 07/17/20 Urinary Catheter Time of Insertion: 22:20 Data : 07/21/20 05:03 07/22/20 03:13 A&P Assessment and plan (1) CHF exacerbation: -acute CHF exacerbation as evidenced by dyspnea, LE edema, BNP elevation -renal function improved and clinically compensated, resume oral lasix -daily weights, monitor Is & Os -Echo: EF=65%, mild , trace to mild TR, trace NC -continue to monitor vital signs; noted tachycardia -continue to monitor respiratory status, supplemental oxygen as needed Status: Resolved Qualifiers: Heart failure type: diastolic Qualified Code(s): I50.33 - Acute on chronic diastolic (congestive) heart failure (2) COPD exacerbation: -is oxygen dependent at baseline, 3 L NC -CXR noted -on steroids, Neb treatments, pulmonary toilet -continue to monitor respiratory status Status: Acute (3) Acute kidney injury superimposed on CKD: -has noted MARY BETH on CKD stage 3; baseline Cr is around 1.5-1.6. 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 Bustillos -Obesity: BMI-31 kg/m2 -Dyslipidemia; continue statin -NIDDM type II; accucheks, ISS -OA, chronic pain; pain control as needed -hx of paroxysmal atrial fibrillation with RVR; on BB, telemetry monitoring -difficulty swallowing; ST evaluation appreciated; no overt aspiration, regular diet and liquid consistency recommended; aspiration precautions -constipation, on bowel regimen -cardiac consistent carb diet as tolerated -GI ppx with famotidine -DVT ppx with heparin -Dispo: home with hospice ([facility]) -Code status: DNR/DNI; ok with ICU admission Attestations Medical Necessity Statement*: Patient requires hospitalization for continued IV antibiotics secondary to complicated UTI due to ESBL E.coli. Time Spent in Patient Care: 16 - 35 minutes (>than 50% of time spent in counselling and/or direct pt care on unit). 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
[2020-07-22] MEDS: HYDROcodone-acetaminophen 5-325 mg Tablet 1 TAB PO ×2 (14:45→20:55)
[2020-07-22 16:51] LABS: Glucose Point of Care 242 mg/dL (70-110)
[2020-07-22] MEDS: sennosides-docusate Tablet 1 TAB PO (17:44)
--- NOTE | 2020-07-22 19:54 | PC.NURSE ---
PT IS UP IN CHAIR. PT IS CONCERNED ABOUT OXYGEN. PT WANTS TO KNOW HOW MUCH O2 THEY WERE ON. PT WAS ON 5L AND PT STATED THAT WAS TOO HIGH. PT WAS TITRATED DOWN TO 4L. PT IS TOLERATING WELL AT 97%. RT WAS INFORMED AND AGREED. PT WANTED V/S CHECKED AND WAS WORRIED. V/S WNL. PT WANTED A BREATHING TX. RT NOTIFIED ABOUT BREATHING TX. PT WANTS TO KNOW WHEN THEY CAN HAVE NIGHT MEDS. THIS NURSE INFORMED PT THAT WE START NIGHT MEDS AROUND 1999. PT STATED WHY NOT NOW. WHAT DIFFERENCE DOES IT MAKE. PT WAS INFORMED THAT THERE ARE CERTAIN TIMES FOR REASONS. WILL CONTINUE TO MONITOR.
[2020-07-22] MEDS: atorvastatin 40 mg Tablet PO (20:51)
[2020-07-22] MEDS: finasteride 5 mg Tablet PO (20:51)
[2020-07-22 21:08] LABS: Glucose Point of Care 301 mg/dL (70-110)
[2020-07-23] VITALS (20 sets, daily range): BP systolic 110–138; BP diastolic 64–84; PULSE 60–101; RESP 17–24; TEMP 36.4–36.8; O2SAT 92–98; BMI 30.4
[2020-07-23] MEDS: ipratropium-albuterol 3 mL Neb INHALATION ×7 (00:10→23:32)
[2020-07-23] MEDS: heparin 5,000 unit/mL INJ 1 mL 5000 UNIT SUBCUT ×4 (03:33→21:30)
--- NOTE | 2020-07-23 06:48 | PC.NURSE ---
PT IS RESTING IN BED. DENIES PAIN. WILL CONTINUE TO MONITOR.
--- NOTE | 2020-07-23 07:00 | PC.NURSE ---
patient resting in bed. assessment performed and charted. call light within reach. no other needs at this time.
[2020-07-23 07:38] LABS: Glucose Point of Care 136 mg/dL (70-110)
[2020-07-23] MEDS: predniSONE 20 mg Tablet 40 MG PO (08:38)
[2020-07-23] MEDS: ondansetron 2 mg/ML SDV 2 mL 4 MG IVP (08:39)
[2020-07-23] MEDS: tamsulosin 0.4 mg Capsule PO (08:39)
[2020-07-23] MEDS: FUROsemide 20 mg Tablet PO ×2 (08:39→16:37)
[2020-07-23] MEDS: clopidogrel 75 mg Tablet PO (08:39)
[2020-07-23] MEDS: metoprolol tartrate 25 mg Tablet PO ×2 (08:39→17:46)
[2020-07-23] MEDS: sertraline 50 mg Tablet 25 MG PO (08:39)
[2020-07-23] MEDS: aspirin 81 mg EC Tablet PO (08:39)
[2020-07-23] MEDS: famotidine 20 mg Tablet PO ×2 (08:39→17:46)
--- NOTE | 2020-07-23 08:42 | PM.PN ---
Subjective Subjective: Interval history: VSS, on 4 L NC, had 2150 mL urine output overnight. Sitting in recliner, unsure about which meds he got last night. Repeatedly asking to have HR checked. Medications: Reviewed: Yes Medication Review Details: Active Medications Generic Name Dose Route Start Last Admin Trade Name Freq PRN Reason Stop Dose Admin Acetaminophen 650 mg 07/17/20 23:11 Acetaminophen 32 5 Mg Tablet PO Q6H PRN Mild/Mod Pain Or Temp >/= 101 Hydrocodone Bitart /Acetaminophen 1 tab 07/18/20 01:22 07/22/20 20:55 Hydrocodone-Acet aminophen 5-325 Mg Tablet PO 1 tab Q6H PRN Administration MODERATE PAIN Albuterol/Ipratrop ium 3 ml 07/18/20 00:00 07/23/20 07:55 Ipratropium-Albu terol 3 Ml Neb INHALATION 3 ml Q4H.RESPIRATORY S CH Administration Albuterol/Ipratrop ium 3 ml 07/17/20 23:11 07/21/20 14:54 Ipratropium-Albu terol 3 Ml Neb INHALATION 3 ml Q4H PRN Administration SHORTNESS OF YI TH Alprazolam 0.5 mg 07/18/20 01:57 07/22/20 20:54 Alprazolam 0.5 M g Tablet PO 0.5 mg Q4H PRN Administration ANXIETY Aspirin 81 mg 07/18/20 09:00 07/23/20 08:39 Aspirin 81 Mg Ec Tablet PO 81 mg DAILY APURVA Administration Atorvastatin Calci um 40 mg 07/18/20 21:00 07/22/20 20:51 Atorvastatin 40 Mg Tablet PO 40 mg BEDTIME APURVA Administration Bisacodyl 10 mg 07/19/20 20:55 07/23/20 08:40 Bisacodyl 10 Mg Supp UT Not Given DAILY APURVA Clopidogrel Bisulf ate 75 mg 07/18/20 09:00 07/23/20 08:39 Clopidogrel 75 M g Tablet PO 75 mg DAILY APURVA Administration Dextrose 25 ml 07/21/20 19:05 Dextrose 50% Syr romel 50 Ml IVP ONCE PRN hypoglycemia prot ocol Protocol Dextrose 50 ml 07/21/20 19:05 Dextrose 50% Syr romel 50 Ml IVP PRN PRN hypoglycemia prot ocol Protocol Famotidine 20 mg 07/18/20 10:00 07/23/20 08:39 Famotidine 20 Mg Tablet PO 20 mg BID APURVA Administration Finasteride 5 mg 07/18/20 21:00 07/22/20 20:51 Finasteride 5 Mg Tablet PO 5 mg BEDTIME APURVA Administration Furosemide 20 mg 07/21/20 16:00 07/23/20 08:39 Furosemide 20 Mg Tablet PO 20 mg BID@08,16 APURVA Administration Glucagon 1 mg 07/21/20 19:05 Glucagon 1 Mg/Ml Inj 1 Ml IM ONCE PRN Adult Acute Hypog lycemia Prot. Protocol Heparin Sodium (Be ef Lung) 5,000 unit 07/17/20 23:11 07/23/20 08:40 Heparin 5,000 Un it/Ml Inj 1 Ml SUBCUT 5,000 unit Q8H APURVA Administration Imipenem/Cilastati n Sodium 500 100 mls @ 200 mls /hr 07/21/20 18:00 07/23/20 03:33 mg/ Sodium Chlor tamanna IV 200 mls/hr Q8H APURVA Administration Dextrose 500 mls @ 100 mls /hr 07/21/20 19:05 D5w IV ONCE PRN Adult Acute Hypog lycemia Prot Protocol Insulin Aspart 0 unit 07/21/20 21:00 07/23/20 07:45 Insulin Aspart 1 00 Unit/1 Ml SUBCUT Not Given WM&BEDTIME [facility] Protocol Metoprolol Tartrat e 25 mg 07/19/20 09:00 07/23/20 08:39 Metoprolol Tartr ate 25 Mg Tablet PO 25 mg BID APURVA Administration Ondansetron HCl 4 mg 07/20/20 20:00 07/23/20 08:39 Ondansetron 2 Mg /Ml Sdv 2 Ml IVP 4 mg Q6H PRN Administration NAUSEA AND VOMITI NG Polyethylene Glyco l 17 gm 07/19/20 10:35 07/23/20 08:40 Polyethylene Gly col 3350 Pkt 17 Gm PO Not Given DAILY APURVA Prednisone 40 mg 07/21/20 09:00 07/23/20 08:38 Prednisone 20 Mg Tablet PO 40 mg DAILY APURVA Administration Senna/Docusate Sod ium 1 tab 07/21/20 09:00 07/23/20 08:40 Sennosides-Docus ate Tablet PO Not Given BID APURVA Sertraline HCl 25 mg 07/18/20 09:00 07/23/20 08:39 Sertraline 50 Mg Tablet PO 25 mg DAILY APURVA Administration Tamsulosin HCl 0.4 mg 07/18/20 09:00 07/23/20 08:39 Tamsulosin 0.4 M g Capsule PO 0.4 mg DAILY APURVA Administration No Known Allergies Allergy (Verified 07/17/20 23:42) Vitals/I&O/Wt Last Vital Signs Temp 98.2 F 07/23/20 08:13 Pulse 70 07/23/20 08:13 Resp 77 H 07/23/20 08:13 BP 138/75 07/23/20 08:13 Pulse Ox 97 07/23/20 07:57 07/22/20 07/23/20 07/23/20 22:59 06:59 14:59 Intake Total 610 / 830 150 / 980 Output Total 3500 / 3500 150 / 3650 Balance -2890 / -2670 0 / -2670 Weight last 48 hrs Weight 90.9 kg Weight 90.718 kg Physical Exam Const: COMMON NORMALS: no acute distress and alert GENERAL APPEARANCE: cooperative and comfortable NUTRITIONAL APPEARANCE: obese centrally obese ORIENTATION/CONSCIOUSNESS: Yes awake and Yes confused OTHER: -appears appropriate for age, sitting in chair by bedside HENMT: COMMON NORMALS: normocephalic, atraumatic, hearing grossly normal bilaterally and moist oral mucous membranes HEAD & SCALP: normocephalic and atraumatic Eye: COMMON NORMALS: Equal, round and reactive pupils present, EOMs intact bilaterally and conjunctivae normal CONJUNCTIVA: Yes conjunctivae normal PUPIL: Yes Equal, round and reactive pupils present Neck/C-Spine: COMMON NORMALS: full ROM GENERAL: Yes normal visual inspection and Yes trachea midline Resp: COMMON NORMALS: normal respiratory effort, No retractions and No use of accessory muscles EFFORT & INSPECTION: Yes able to speak in complete sentences, Yes symmetric chest movement and Yes tachypneic AUSCULTATION: diminished lung sounds OTHER: -on 4 L NC Cardio: COMMON NORMALS: regular rhythm, S1 normal heart sound present, S2 normal heart sound present and No murmurs present (Cardio) RATE: tachycardic (HR in the 100-120 range) RHYTHM: regular rhythm HEART SOUNDS: S1 normal heart sound present and S2 normal heart sound present GI: COMMON NORMALS: Normal to inspection, nondistended, normoactive bowel sounds present, Soft to palpation and non-tender INSPECTION: Yes central obesity PALPATION: Yes Soft to palpation : BLADDER/KIDNEY EXAM: Yes catheter in place Extremity: COMMON NORMALS: normal to inspection, full ROM and no pedal edema NARRATIVE EXTREMITY EXAM: -trace pitting edema of bilateral LEs Neuro: COMMON NORMALS: moves all extremities, no focal motor deficits and no sensory deficits noted SENSORIUM/ORIENTATION: Yes alert Psych: COMMON NORMALS: cooperative, normal affect and speech normal SPEECH: Yes normal speech OTHER: -mental status tends to wax and wane with intermittent confusion, repeatedly asking the same questions Skin: COMMON NORMALS: no rashes or lesions noted, no jaundice, no petechiae and no mottling NARRATIVE SKIN EXAM: -dry skin throughout GENERAL SKIN EXAM: no rashes or lesions noted Urinary Catheter Management^: Drake: Cath Placed During This Visit: yes Reason for Continuing Indwelling Catheter: Chronic Indwelling Urinary Catheter on Admission Urinary Catheter Date of Insertion: 07/17/20 Urinary Catheter Time of Insertion: 22:20 Data : 07/21/20 05:03 07/22/20 03:13 A&P Assessment and plan (1) CHF exacerbation: -acute CHF exacerbation as evidenced by dyspnea, LE edema, BNP elevation -renal function improved and clinically compensated, resume oral lasix -daily weights, monitor Is & Os -Echo: EF=65%, mild , trace to mild TR, trace UT -continue to monitor vital signs; noted tachycardia -continue to monitor respiratory status, supplemental oxygen as needed Status: Resolved Qualifiers: Heart failure type: diastolic Qualified Code(s): I50.33 - Acute on chronic diastolic (congestive) heart failure (2) COPD exacerbation: -is oxygen dependent at baseline, 3 L NC -CXR noted -on steroids, Neb treatments, pulmonary toilet -continue to monitor respiratory status Status: Acute (3) Acute kidney injury superimposed on CKD: -has noted MARY BETH on CKD stage 3; baseline Cr is around 1.5-1.6. 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 Bustillos -Obesity: BMI-31 kg/m2 -Dyslipidemia; continue statin -NIDDM type II; accucheks, ISS -OA, chronic pain; pain control as needed -hx of paroxysmal atrial fibrillation with RVR; on BB, telemetry monitoring -difficulty swallowing; ST evaluation appreciated; no overt aspiration, regular diet and liquid consistency recommended; aspiration precautions -constipation, on bowel regimen -cardiac consistent carb diet as tolerated -GI ppx with famotidine -DVT ppx with heparin -Dispo: home with hospice ([facility]) -Code status: DNR/DNI; ok with ICU admission Attestations Medical Necessity Statement*: Patient requires hospitalization for continued treatment of complicated UTI, on IV antibiotics. Time Spent in Patient Care: 16 - 35 minutes (>than 50% of time spent in counselling and/or direct pt care on unit). 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
--- NOTE | 2020-07-23 09:00 | PC.NURSE ---
patient requested to get in chair. patient transferred to chair with stand by assist. call light within reach. no other needs identified.
[2020-07-23 10:52] LABS: Glucose Point of Care 185 mg/dL (70-110)
[2020-07-23] MEDS: HYDROcodone-acetaminophen 5-325 mg Tablet 1 TAB PO ×2 (12:01→19:25)
[2020-07-23] MEDS: ALPRAZolam 0.5 mg Tablet PO ×2 (16:37→21:30)
[2020-07-23 16:53] LABS: Glucose Point of Care 268 mg/dL (70-110)
[2020-07-23] MEDS: sennosides-docusate Tablet 1 TAB PO (17:46)
--- NOTE | 2020-07-23 18:00 | PC.PT ---
PT note; patient has achieved baseline prior level of function, PT goals achieved, discharge physical therapy.
--- NOTE | 2020-07-23 18:46 | PC.NURSE ---
patient had an unevenful shift. patient is still resting in chair at this time and doesn't want to get back in bed at this time. call light within reach. no other needs identified at this time.
[2020-07-23] MEDS: finasteride 5 mg Tablet PO (21:30)
[2020-07-23] MEDS: atorvastatin 40 mg Tablet PO (21:30)
[2020-07-23 23:36] LABS: Glucose Point of Care 287 mg/dL (70-110)
[2020-07-24] VITALS (15 sets, daily range): BP systolic 94–130; BP diastolic 58–90; PULSE 68–110; RESP 16–24; TEMP 36.6–37.3; O2SAT 93–98
[2020-07-24] MEDS: ipratropium-albuterol 3 mL Neb INHALATION ×5 (03:46→20:35)
[2020-07-24] MEDS: heparin 5,000 unit/mL INJ 1 mL 5000 UNIT SUBCUT ×3 (05:12→22:40)
[2020-07-24 06:54] LABS: Glucose Point of Care 142 mg/dL (70-110)
[2020-07-24] MEDS: predniSONE 20 mg Tablet 40 MG PO (08:56)
[2020-07-24] MEDS: bisacodyl 10 mg Supp PR (08:56)
[2020-07-24] MEDS: sennosides-docusate Tablet 1 TAB PO (08:56)
[2020-07-24] MEDS: metoprolol tartrate 25 mg Tablet PO ×2 (08:56→17:24)
[2020-07-24] MEDS: polyethylene glycol 3350 Pkt 17 gm PO (08:56)
[2020-07-24] MEDS: clopidogrel 75 mg Tablet PO (08:56)
[2020-07-24] MEDS: tamsulosin 0.4 mg Capsule PO (08:56)
[2020-07-24] MEDS: aspirin 81 mg EC Tablet PO (08:57)
[2020-07-24] MEDS: famotidine 20 mg Tablet PO ×2 (08:57→17:24)
[2020-07-24] MEDS: HYDROcodone-acetaminophen 5-325 mg Tablet 1 TAB PO ×2 (08:57→16:05)
[2020-07-24] MEDS: sertraline 50 mg Tablet 25 MG PO (09:00)
[2020-07-24] MEDS: FUROsemide 20 mg Tablet PO (09:08)
--- NOTE | 2020-07-24 09:53 | P.PN_ITS ---
Subjective Subjective: Interval history: afebrile, hemodynamically stable , urine output 3600ml Medications: Reviewed: Yes Medication Review Details: Active Medications Generic Name Dose Route Start Last Admin Trade Name Frances PRN Reason Stop Dose Admin Acetaminophen 650 mg 07/17/20 23:11 Acetaminophen 32 5 Mg Tablet PO Q6H PRN Mild/Mod Pain Or Temp >/= 101 Hydrocodone Bitart /Acetaminophen 1 tab 07/18/20 01:22 07/22/20 20:55 Hydrocodone-Acet aminophen 5-325 Mg Tablet PO 1 tab Q6H PRN Administration MODERATE PAIN Albuterol/Ipratrop ium 3 ml 07/18/20 00:00 07/23/20 07:55 Ipratropium-Albu terol 3 Ml Neb INHALATION 3 ml Q4H.RESPIRATORY S CH Administration Albuterol/Ipratrop ium 3 ml 07/17/20 23:11 07/21/20 14:54 Ipratropium-Albu terol 3 Ml Neb INHALATION 3 ml Q4H PRN Administration SHORTNESS OF YI TH Alprazolam 0.5 mg 07/18/20 01:57 07/22/20 20:54 Alprazolam 0.5 M g Tablet PO 0.5 mg Q4H PRN Administration ANXIETY Aspirin 81 mg 07/18/20 09:00 07/23/20 08:39 Aspirin 81 Mg Ec Tablet PO 81 mg DAILY APURVA Administration Atorvastatin Calci um 40 mg 07/18/20 21:00 07/22/20 20:51 Atorvastatin 40 Mg Tablet PO 40 mg BEDTIME APURVA Administration Bisacodyl 10 mg 07/19/20 20:55 07/23/20 08:40 Bisacodyl 10 Mg Supp AZ Not Given DAILY APURVA Clopidogrel Bisulf ate 75 mg 07/18/20 09:00 07/23/20 08:39 Clopidogrel 75 M g Tablet PO 75 mg DAILY APURVA Administration Dextrose 25 ml 07/21/20 19:05 Dextrose 50% Syr romel 50 Ml IVP ONCE PRN hypoglycemia prot ocol Protocol Dextrose 50 ml 07/21/20 19:05 Dextrose 50% Syr romel 50 Ml IVP PRN PRN hypoglycemia prot ocol Protocol Famotidine 20 mg 07/18/20 10:00 07/23/20 08:39 Famotidine 20 Mg Tablet PO 20 mg BID APURVA Administration Finasteride 5 mg 07/18/20 21:00 07/22/20 20:51 Finasteride 5 Mg Tablet PO 5 mg BEDTIME APURVA Administration Furosemide 20 mg 07/21/20 16:00 07/23/20 08:39 Furosemide 20 Mg Tablet PO 20 mg BID@08,16 APURVA Administration Glucagon 1 mg 07/21/20 19:05 Glucagon 1 Mg/Ml Inj 1 Ml IM ONCE PRN Adult Acute Hypog lycemia Prot. Protocol Heparin Sodium (Be ef Lung) 5,000 unit 07/17/20 23:11 07/23/20 08:40 Heparin 5,000 Un it/Ml Inj 1 Ml SUBCUT 5,000 unit Q8H APURVA Administration Imipenem/Cilastati n Sodium 500 100 mls @ 200 mls /hr 07/21/20 18:00 07/23/20 03:33 mg/ Sodium Chlor tamanna IV 200 mls/hr Q8H APURVA Administration Dextrose 500 mls @ 100 mls /hr 07/21/20 19:05 D5w IV ONCE PRN Adult Acute Hypog lycemia Prot Protocol Insulin Aspart 0 unit 07/21/20 21:00 07/23/20 07:45 Insulin Aspart 1 00 Unit/1 Ml SUBCUT Not Given WM&BEDTIME [facility] Protocol Metoprolol Tartrat e 25 mg 07/19/20 09:00 07/23/20 08:39 Metoprolol Tartr ate 25 Mg Tablet PO 25 mg BID APURVA Administration Ondansetron HCl 4 mg 07/20/20 20:00 07/23/20 08:39 Ondansetron 2 Mg /Ml Sdv 2 Ml IVP 4 mg Q6H PRN Administration NAUSEA AND VOMITI NG Polyethylene Glyco l 17 gm 07/19/20 10:35 07/23/20 08:40 Polyethylene Gly col 3350 Pkt 17 Gm PO Not Given DAILY APURVA Prednisone 40 mg 07/21/20 09:00 07/23/20 08:38 Prednisone 20 Mg Tablet PO 40 mg DAILY APURVA Administration Senna/Docusate Sod ium 1 tab 07/21/20 09:00 07/23/20 08:40 Sennosides-Docus ate Tablet PO Not Given BID APURVA Sertraline HCl 25 mg 07/18/20 09:00 07/23/20 08:39 Sertraline 50 Mg Tablet PO 25 mg DAILY APURVA Administration Tamsulosin HCl 0.4 mg 07/18/20 09:00 07/23/20 08:39 Tamsulosin 0.4 M g Capsule PO 0.4 mg DAILY APURVA Administration No Known Allergies Allergy (Verified 07/17/20 23:42) Vitals/I&O/Wt Last Vital Signs Temp 98 F 07/24/20 04:00 Pulse 84 07/24/20 08:54 Resp 18 07/24/20 08:54 BP 130/80 07/24/20 04:00 Pulse Ox 94 07/24/20 08:54 07/23/20 07/24/20 07/24/20 22:59 06:59 14:59 Intake Total 460 / 920 250 / 1170 Output Total 1925 / 3825 Balance 460 / -980 -1675 / -2655 Weight last 48 hrs Weight 89.584 kg Weight 90.9 kg Physical Exam Narrative: EXAM NARRATIVE: GEN: Awake, alert and oriented, no acute distress CVS: S1S2 N RS: CTA B/L except crackles over RUL Abd: Soft, nt/nd , bs+ 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: no focal neuro deficits ext: 1+ pitting pedal edema B/L Urinary Catheter Management^: Drake: Cath Placed During This Visit: yes Reason for Continuing Indwelling Catheter: Acute Urinary Retention or Obstruction Urinary Catheter Date of Insertion: 07/17/20 Urinary Catheter Time of Insertion: 22:20 Data : 07/21/20 05:03 07/22/20 03:13 A&P Assessment and plan (1) CHF exacerbation: -acute CHF exacerbation as evidenced by dyspnea, LE edema, BNP elevation -renal function improved and clinically compensated, resume oral lasix, increase dose to 40mg po BID as clinically appearing to be overloaded -daily weights, monitor Is & Os -Echo: EF=65%, mild , trace to mild TR, trace [place] -continue to monitor vital signs; noted tachycardia -continue to monitor respiratory status, supplemental oxygen as needed Status: Resolved Qualifiers: Heart failure type: diastolic Qualified Code(s): I50.33 - Acute on chronic diastolic (congestive) heart failure (2) COPD exacerbation: -is oxygen dependent at baseline, 3 L NC -CXR noted -on steroids, Neb treatments, pulmonary toilet -continue to monitor respiratory status Status: Acute (3) Acute kidney injury superimposed on CKD: -has noted MARY BETH on CKD stage 3; baseline Cr is around 1.5-1.6. 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 Bustillos -Obesity: BMI-31 kg/m2 -Dyslipidemia; continue statin -NIDDM type II; accucheks, ISS -OA, chronic pain; pain control as needed -hx of paroxysmal atrial fibrillation with RVR; on BB, telemetry monitoring -difficulty swallowing; ST evaluation appreciated; no overt aspiration, regular diet and liquid consistency recommended; aspiration precautions -constipation, on bowel regimen -cardiac consistent carb diet as tolerated -GI ppx with famotidine -DVT ppx with heparin -Dispo: home with hospice ([facility]) -Code status: DNR/DNI; ok with ICU admission Attestations Medical Necessity Statement*: needs ongoing diuresis, iv abx with Primaxin for 5 day course Coding Level of Care Code Acute Foreign Food Specialty Cook for [facility] Fwd Diagnoses CHF exacerbation I50.33 Heart failure type: diastolic COPD exacerbation J44.1 Acute kidney injury superimposed on CKD N17.9; N18.9 Abnormal urine cytology R82.89 Hypertension I10 Hypertension type: essential hypertension
--- NOTE | 2020-07-24 10:45 | DCPLANNER ---
IMM completed on 07/24/20 @ 0932. Reviewed pt copy on pt rights.
[2020-07-24 13:00] LABS: Glucose Point of Care 257 mg/dL (70-110)
[2020-07-24] MEDS: ALPRAZolam 0.5 mg Tablet PO ×2 (14:04→20:08)
[2020-07-24] MEDS: FUROsemide 20 mg Tablet 40 MG PO (16:05)
[2020-07-24 17:03] LABS: Glucose Point of Care 190 mg/dL (70-110)
[2020-07-24] MEDS: atorvastatin 40 mg Tablet PO (20:08)
[2020-07-24] MEDS: finasteride 5 mg Tablet PO (20:08)
[2020-07-24 20:31] LABS: Glucose Point of Care 311 mg/dL (70-110)
[2020-07-25] VITALS (16 sets, daily range): BP systolic 118–136; BP diastolic 60–88; PULSE 69–92; RESP 16–24; TEMP 36.4–36.6; O2SAT 93–98
[2020-07-25] MEDS: ipratropium-albuterol 3 mL Neb INHALATION ×7 (03:33→23:44)
[2020-07-25] MEDS: heparin 5,000 unit/mL INJ 1 mL 5000 UNIT SUBCUT ×3 (05:10→21:15)
[2020-07-25 06:28] LABS: Glucose Point of Care 118 mg/dL (70-110)
[2020-07-25] MEDS: polyethylene glycol 3350 Pkt 17 gm PO (08:19)
[2020-07-25] MEDS: famotidine 20 mg Tablet PO ×2 (08:20→17:37)
[2020-07-25] MEDS: aspirin 81 mg EC Tablet PO (08:20)
[2020-07-25] MEDS: predniSONE 20 mg Tablet 40 MG PO (08:20)
[2020-07-25] MEDS: sertraline 50 mg Tablet 25 MG PO (08:20)
[2020-07-25] MEDS: tamsulosin 0.4 mg Capsule PO (08:20)
[2020-07-25] MEDS: sennosides-docusate Tablet 1 TAB PO ×2 (08:20→17:37)
[2020-07-25] MEDS: bisacodyl 10 mg Supp PR (08:21)
[2020-07-25] MEDS: metoprolol tartrate 25 mg Tablet PO ×2 (08:21→17:48)
[2020-07-25] MEDS: clopidogrel 75 mg Tablet PO (08:21)
[2020-07-25] MEDS: FUROsemide 20 mg Tablet 40 MG PO ×2 (08:25→15:07)
--- NOTE | 2020-07-25 09:51 | PC.ADMIT ---
[address] Admission Note: The patient,Vladimir Farnsworth,80 y/o, was given written information regarding hospital policies, unit procedures and contact persons. Patient's smoking status: never smoked. Vital Signs - 8 hr 07/25/20 03:20 07/25/20 03:33 07/25/20 03:40 Temperature 97.6 F Pulse Rate 69 83 84 Respiratory Rate 18 16 Blood Pressure 136/82 Pulse Oximetry 95 96 07/25/20 07:20 07/25/20 07:54 Temperature 97.8 F Pulse Rate 92 90 Respiratory Rate 18 20 H Blood Pressure 122/75 Pulse Oximetry 94
[2020-07-25] MEDS: ALPRAZolam 0.5 mg Tablet PO ×2 (10:47→21:14)
[2020-07-25] MEDS: HYDROcodone-acetaminophen 5-325 mg Tablet 1 TAB PO ×2 (12:02→18:09)
--- NOTE | 2020-07-25 15:15 | P.PN_ITS ---
Subjective Subjective: Interval history: no acute overnight events, afebrile, hemodynamically stable, on NC 2lpm, extremely anxious about upcoming discharge, states that he is not certain if he will be able to manage at home, wishes to go to SNF instead of home. 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 Check CMP. Appears euvolemic today. -daily weights, monitor Is & Os -Echo: EF=65%, mild , trace to mild TR, trace [place] -continue to monitor vital signs; noted tachycardia -continue to monitor respiratory status, supplemental oxygen as needed Status: Resolved Qualifiers: Heart failure type: diastolic Qualified Code(s): I50.33 - Acute on chronic diastolic (congestive) heart failure (2) COPD exacerbation: -is oxygen dependent at baseline, 3 L NC -CXR noted -on steroids, Neb treatments, pulmonary toilet -continue to monitor respiratory status Status: Acute (3) Acute kidney injury superimposed on CKD: -has noted MARY BETH on CKD stage 3; baseline Cr is around 1.5-1.6. 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 Bustillos -Obesity: BMI-31 kg/m2 -Dyslipidemia; continue statin -NIDDM type II; accucheks, ISS -OA, chronic pain; pain control as needed -hx of paroxysmal atrial fibrillation with RVR; on BB, telemetry monitoring -difficulty swallowing; ST evaluation appreciated; no overt aspiration, regular diet and liquid consistency recommended; aspiration precautions -constipation, on bowel regimen -cardiac consistent carb diet as tolerated -GI ppx with famotidine -DVT ppx with heparin -Dispo: home with hospice ([facility]) originally planned, however patient extremely anxious about returning home and being able to manage. Wishes to consider SNF, documents faxed over to [facility] -Code status: DNR/DNI; ok with ICU admission Attestations Medical Necessity Statement*: completing day 5 of abx for ESBL UTI, euvolemic today after increasing diuresis, planned discharge in the upcoming 24 hrs Coding Level of Care Code Acute Master Police Detective for [facility] Fwd Diagnoses CHF exacerbation I50.33 Heart failure type: diastolic COPD exacerbation J44.1 Acute kidney injury superimposed on CKD N17.9; N18.9 Abnormal urine cytology R82.89 Hypertension I10 Hypertension type: essential hypertension
[2020-07-25 16:34] LABS: Basophils % 0.1 %; Hematocrit 40.4 % (42.0-52.0); Hemoglobin 13.1 g/dL (11.7-16.6); Lymphocytes # 0.6 10^3/uL (0.8-4.8); Mean Corpuscular HGB Conc 32.4 g/dL (30.0-36.0); Mean Corpuscular Hemoglobin 26.9 pg (28.0-34.0); Mean Platelet Volume 10.2 fL (7.4-10.4); Monocytes # 0.9 10^3/uL (0.2-0.9); Monocytes % 4.5 %; Neutrophils # 18.47 10^3/uL (1.8-7.7); Neutrophils % 91.3 %; Nucleated Red Blood Cells % 0 %; Platelet Count 286 10^3/cmm (130-400); Red Blood Count 4.87 10^6/uL (4.1-5.3); Red Cell Distribution Width 14.9 % (12.1-15.1); White Blood Count 20.2 10^3/uL (4.0-10.0)
[2020-07-25 17:38] LABS: Alanine Aminotransferase 54 U/L (0-41); Albumin Level 3.5 g/dL (3.5-5.2); Alkaline Phosphatase 105 IU/L (40-130); Anion Gap 15.9 (5-19); Aspartate Amino Transferase 50 U/L (0-40); Blood Urea Nitrogen 54 mg/dL (8-23); Calcium 9.4 mg/dL (8.5-10.5); Carbon Dioxide 33 mmol/L (22-29); Chloride 85 mmol/L (98-107); Globulin 2.5 g/dL (1.3-4.6); Glucose 197 mg/dL (65-115); Osmolality Calculated 290 mOsm/kg (285-295); Potassium 3.9 mmol/L (3.5-5.1); Sodium 130 mmol/L (136-145); Total Bilirubin 0.5 mg/dL (0.15-1.2)
--- NOTE | 2020-07-25 19:33 | PC.NURSE ---
Received report from MONSTER Azul. Patient up in chair watching tv. Patient wants his borja bag changed before he goes home, just the bag. Patient asking about SNF placement and is very concerned, anxious about not being accepted to [facility]. Tried to reassure patient. Will need to speak with manager of case tomorrow.
[2020-07-25 20:37] LABS: Glucose Point of Care 241 mg/dL (70-110)
[2020-07-25] MEDS: finasteride 5 mg Tablet PO (21:14)
[2020-07-25] MEDS: atorvastatin 40 mg Tablet PO (21:14)
--- NOTE | 2020-07-25 21:27 | PC.NURSE ---
Per patient request. Clustered care of medication administration.
[2020-07-26] VITALS (14 sets, daily range): BP systolic 100–126; BP diastolic 52–68; PULSE 81–95; RESP 16–24; TEMP 36.4–36.7; O2SAT 91–96
--- NOTE | 2020-07-26 01:32 | PC.NURSE ---
Patient resting in bed with eyes closed. Eyes open spontaneously. No complaints or needs at this time. No distress observed.
[2020-07-26] MEDS: ipratropium-albuterol 3 mL Neb INHALATION ×5 (04:16→19:49)
--- NOTE | 2020-07-26 04:48 | PC.NURSE ---
Patient called to nurse's station to report feeling unable to breathe. Informed RT Naty. RT reports patient having a breathing treatment shortly after 0400. RT in room to chect SpO2 which was 94%. Patient is on 2L oxygen via NC. Offered patient Xanax as ordered to help with anxiety and air hunger. Patient stated, I don't need that right now. Return medication to [facility]. Discussed with patient that medication was still available if he decides he needs it.
[2020-07-26 04:51] LABS: Anion Gap 11.6 (5-19); Blood Urea Nitrogen 52 mg/dL (8-23); Calcium 9.4 mg/dL (8.5-10.5); Carbon Dioxide 40 mmol/L (22-29); Chloride 87 mmol/L (98-107); Glucose 113 mg/dL (65-115); Osmolality Calculated 295 mOsm/kg (285-295); Potassium 3.6 mmol/L (3.5-5.1); Sodium 135 mmol/L (136-145)
[2020-07-26] MEDS: heparin 5,000 unit/mL INJ 1 mL 5000 UNIT SUBCUT ×3 (06:21→20:17)
--- NOTE | 2020-07-26 06:25 | PC.NURSE ---
Verified patient scanned as well as medication was scanned. Heparin given signed off by MONSTER Villasenor.
[2020-07-26] MEDS: ALPRAZolam 0.5 mg Tablet PO ×2 (06:50→20:17)
--- NOTE | 2020-07-26 07:00 | PC.NURSE ---
Confirmed patient scanned and verified as well as medication window has scan indicator prior to saving administration.
[2020-07-26 07:09] LABS: Glucose Point of Care 136 mg/dL (70-110)
[2020-07-26] MEDS: FUROsemide 20 mg Tablet 40 MG PO (08:48)
[2020-07-26] MEDS: HYDROcodone-acetaminophen 5-325 mg Tablet 1 TAB PO ×3 (08:58→20:17)
[2020-07-26] MEDS: tamsulosin 0.4 mg Capsule PO (09:00)
[2020-07-26] MEDS: famotidine 20 mg Tablet PO ×2 (09:00→17:46)
[2020-07-26] MEDS: aspirin 81 mg EC Tablet PO (09:00)
[2020-07-26] MEDS: clopidogrel 75 mg Tablet PO (09:00)
[2020-07-26] MEDS: metoprolol tartrate 25 mg Tablet PO ×2 (09:01→17:46)
[2020-07-26] MEDS: predniSONE 20 mg Tablet 40 MG PO (09:01)
[2020-07-26] MEDS: sertraline 50 mg Tablet 25 MG PO (09:02)
--- NOTE | 2020-07-26 09:08 | PC.SOCIAL ---
IMM Updated Updated pt on Pg 2 IMM. No questions voiced. Provided pt a copy. Signed, dated, & timed copy in chart.
[2020-07-26 10:51] LABS: Glucose Point of Care 255 mg/dL (70-110)
--- NOTE | 2020-07-26 11:37 | PC.NURSE ---
spoke with Dr quick about patients abx instructions to stop medication given
--- NOTE | 2020-07-26 13:35 | PM.PN ---
Subjective Subjective: Interval history: Leukocytosis to 20, no fever, weight down to 87 from 89 kg, urine output 1.1 L, net -15 L since admission, creatinine stable at 1.8, lower extremity edema slightly worse compared to yesterday Medications: Reviewed: Yes Vitals/I&O/Wt Last Vital Signs Temp 97.5 F L 07/26/20 07:21 Pulse 92 07/26/20 13:23 Resp 18 07/26/20 13:23 BP 122/60 07/26/20 04:00 Pulse Ox 91 07/26/20 13:23 07/25/20 07/26/20 07/26/20 22:59 06:59 14:59 Intake Total 220 / 320 100 / 420 360 / 360 Output Total 1100 / 1100 950 / 2050 Balance -880 / -780 -850 / -1630 360 / 360 Weight last 48 hrs Weight 87.317 kg Weight 87.725 kg Physical Exam Narrative: EXAM NARRATIVE: GEN: Awake, alert and oriented, no acute distress CVS: S1S2 N RS: CTA B/L Abd: Soft, nt/nd , bs+ MEAT BONER: no focal neuro deficits ext: LE pitting edema worsened compared to yesterday Urinary Catheter Management^: Drake: Cath Placed During This Visit: yes Reason for Continuing Indwelling Catheter: Accurate Measurement of Urinary Output in Critically Ill Patients Urinary Catheter Date of Insertion: 07/17/20 Urinary Catheter Time of Insertion: 22:20 Data : 07/25/20 16:21 07/26/20 03:40 A&P Assessment and plan (1) CHF exacerbation: -acute CHF exacerbation as evidenced by dyspnea, LE edema, BNP elevation -renal function improved and clinically compensated, resume oral lasix, increased dose to 40mg po BID on 07/24 as clinically appearing to be overloaded , LE edema slight worsened today, extra lasix 20mg iv x 1 -daily weights, monitor Is & Os -Echo: EF=65%, mild , trace to mild TR, trace MD -continue to monitor vital signs; noted tachycardia -continue to monitor respiratory status, supplemental oxygen as needed Status: Resolved Qualifiers: Heart failure type: diastolic Qualified Code(s): I50.33 - Acute on chronic diastolic (congestive) heart failure (2) COPD exacerbation: -is oxygen dependent at baseline, 3 L NC -CXR noted -discontinue steroids -continue to monitor respiratory status Status: Acute (3) Acute kidney injury superimposed on CKD: -has noted MARY BETH on CKD stage 3; baseline Cr is around 1.5-1.6. 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 Bustillos -Obesity: BMI-31 kg/m2 -Dyslipidemia; continue statin -NIDDM type II; accucheks, ISS -OA, chronic pain; pain control as needed -hx of paroxysmal atrial fibrillation with RVR; on BB, telemetry monitoring -difficulty swallowing; ST evaluation appreciated; no overt aspiration, regular diet and liquid consistency recommended; aspiration precautions -constipation, on bowel regimen -cardiac consistent carb diet as tolerated -GI ppx with famotidine -DVT ppx with heparin -Dispo: home with hospice ([facility]) originally planned, however patient extremely anxious about returning home and being able to manage. Wishes to consider SNF, documents faxed over to [facility] -Code status: DNR/DNI; ok with ICU admission Attestations Medical Necessity Statement*: awaiting dispo planning, discharge to SNF Coding Level of Care Code Acute Quantitative Associate for [facility] Fwd Diagnoses CHF exacerbation I50.33 Heart failure type: diastolic COPD exacerbation J44.1 Acute kidney injury superimposed on CKD N17.9; N18.9 Abnormal urine cytology R82.89 Hypertension I10 Hypertension type: essential hypertension
[2020-07-26] MEDS: ondansetron 2 mg/ML SDV 2 mL 4 MG IVP (14:28)
[2020-07-26] MEDS: FUROsemide 10 mg/mL SDV 2mL 20 MG IVP (14:28)
--- NOTE | 2020-07-26 16:05 | PC.NURSE ---
Call placed to Dr Oquendo with concerns of giving PO furosemide so close to the additional IVP ordered instructions given to hold this dose and give the 40 mg po at 1900 today
[2020-07-26 16:08] LABS: Glucose Point of Care 341 mg/dL (70-110)
[2020-07-26] MEDS: FUROsemide 40 mg Tablet PO (18:54)
--- NOTE | 2020-07-26 18:56 | PC.NURSE ---
patient very upset at this time due to his blood pressure being low all day expressed concerns about taking too much blood pressure medications patient explained the hospice nurse cuts them medications in half I feel you are giving me too much. Explained to patient about the actions of medications also took patients blood pressure on automatic blood pressure machine to show patient his blood pressure, 116/73 explained to patient him the Doctor and I would all discuss his medications and plan of care together.
[2020-07-26 20:16] LABS: Glucose Point of Care 345 mg/dL (70-110)
[2020-07-26] MEDS: atorvastatin 40 mg Tablet PO (20:17)
[2020-07-26] MEDS: finasteride 5 mg Tablet PO (20:17)
[2020-07-27] VITALS (15 sets, daily range): BP systolic 99–142; BP diastolic 61–78; PULSE 62–106; RESP 12–24; TEMP 36.2–36.9; O2SAT 93–98; BMI 28.9
[2020-07-27] MEDS: ipratropium-albuterol 3 mL Neb INHALATION ×5 (00:03→21:04)
[2020-07-27] MEDS: heparin 5,000 unit/mL INJ 1 mL 5000 UNIT SUBCUT ×3 (06:43→22:26)
[2020-07-27 07:33] LABS: Glucose Point of Care 145 mg/dL (70-110)
[2020-07-27] MEDS: aspirin 81 mg EC Tablet PO (08:56)
[2020-07-27] MEDS: FUROsemide 20 mg Tablet 40 MG PO ×2 (08:56→17:04)
[2020-07-27] MEDS: clopidogrel 75 mg Tablet PO (08:56)
[2020-07-27] MEDS: famotidine 20 mg Tablet PO ×2 (08:56→17:04)
[2020-07-27] MEDS: tamsulosin 0.4 mg Capsule PO (09:01)
[2020-07-27] MEDS: HYDROcodone-acetaminophen 5-325 mg Tablet 1 TAB PO ×2 (09:08→20:05)
--- NOTE | 2020-07-27 09:37 | PC.NURSE ---
patient refused medications for bowels as well as blood pressure medication patient expresses concerns my blood pressure is too low and go on like this that long. explained to patient about the actions of metoprolol to aide in the contractility of heart. patient continues to refuse medication Dr quick notified no new instructions at this time.
[2020-07-27 11:03] LABS: Glucose Point of Care 310 mg/dL (70-110)
--- NOTE | 2020-07-27 14:25 | PM.DCS ---
Discharge Providers Date of Admission: 07/17/20 21:43 Date of Discharge: July 27, 2020 Attending Provider at Admission: David Allen Attending Provider at Discharge: Katty Oquendo MD Primary Care Provider: Erik Adkins DO Diagnoses at Discharge Discharge Diagnosis (1) CHF exacerbation: Status: Resolved Qualifiers: Heart failure type: diastolic Qualified Code(s): I50.33 - Acute on chronic diastolic (congestive) heart failure (2) COPD exacerbation: Status: Acute (3) Acute kidney injury superimposed on CKD: Status: Acute (4) Abnormal urine cytology: Status: Acute (5) Hypertension: Status: Chronic Qualifiers: Hypertension type: essential hypertension Qualified Code(s): I10 - Essential (primary) hypertension Reason for Visit Reason for Visit: sob Hospital Course Hospital Course 80-year-old gentleman with history of COPD,CHF, Anxiety, on home hospice admitted on 07/17 after complaining that he has been getting progressively more short of breath over the last week, states he has been using his nebulizer treatments at home, but without much success. He denies any chest pain or pressure. In ER he is requiring 2 L of oxygen, ABG 7.38/55.5/91.4/32.8. Chest x-ray without sign of obvious pneumonia. He reports he has noticed more swelling in his lower extremities recently. He is having trouble laying down flat while sleeping due to getting short of breath. Daughter also reports that he has been having increased LE swelling and overall becoming bloated. W/up revealed acute on chronic diastolic CHF exacerbation as evidenced by dyspnea, LE edema, BNP elevation for which he received iv diuresis, eventually changed to po lasix 40mg BD at time of discharge. Echo: EF=65%, mild , trace to mild TR, trace AL. Also treated for COPD exacerbation with steroids, Neb treatments, pulmonary toilet with improvement. Steroids have now been discontinued and patient's respiratory status is stable off of them. He has a chronic indwelling Drake catheter; changed this admission. Due to concern for UTI he has received course of Primaxin over 5 days as urine cx shows ESBL E.coli. Patient's troponin was noted to be moderately elevated, however he does not have any chest pain or any acute ST-T wave changes. He was recently medically managed for suspected coronary artery disease. Given limited goals of care plan is to continue with medical management only at this time. Suspect that troponin elevation is secondary to demand and supply mismatch. Patient and his daughters report multiple episodes of UTI per year, keeping in mind that patient's overall GOC are hospice care with aim to reduce readmissions, we will give a trial of chronic suppression with nitrofurantoin 50mg po BID (cr cl 39). Patient was planned to return home with hospice however later changed his mind and stated that he would prefer to be discharged to SNF, therefore multiple facilities were contacted. He did well with PT, was discharged from their end on 07/23. [facility], his first choice reported that he will likely not be approved for services as he did well inpatient. interlibrary loan services librarian discussed with him that if Medicare does not cover his stay then he may have to use his Medicaid check to cover the cost of being there, however the patient stated that he is not in a position to do this. Initially wanted to wait until Tuesday to hear back from other SNFs that were contacted however today stated that he would not last in a care home , that he is afraid he would just be left in a chair with no PT and elected to return home instead with his daughter. Per patient, he has needed increased help at home due to advancing age and multiple comorbidities. He also needs regulation of Lasix at home as with CHF there are bound to be times when lasix dose needs to be titrated. He currently does not have a PCP since his last physician Dr. Adkins retired. He is unaware if he has physician access via hospice services. His daughter who resides with him is unable to drive and unable to get his prescriptions or take him to follow up appointments due to her own health issues. We have requested more frequent home visits with his hospice nurse and also regulation of lasix by hospice physician if feasible by them. We will provide him with a referral to a new PCP if he does not have physician access via hospice, however I am uncertain if he can get established without an in person visit or via telemedicine only. Lasix has been increased to 40 mg twice daily upon discharge. Patient is instructed to check his weight at home. If weight is increasing by more than 2 pounds a day over 2 days, increase Lasix to 60 mg twice daily and recheck his weight trend. Gout atorvastatin and Plavix appear as new medications, these are in fact continued from his home medication list that was provided upon admission. Physical Exam Narrative: EXAM NARRATIVE: GEN: Awake, alert and oriented, no acute distress HEENT: Nasal cannula in place, currently at 3 L which is his home requirement CVS: S1S2 N RS: CTA B/L Abd: Soft, nt/nd , bs+ COTTON OPENER: no focal neuro deficits Extremities 1+ pitting edema present, however much improved compared to exam over the last 2 days Urinary Catheter Management^: Drake: Cath Placed During This Visit: yes Reason for Continuing Indwelling Catheter: Accurate Measurement of Urinary Output in Critically Ill Patients Urinary Catheter Date of Insertion: 07/17/20 Urinary Catheter Time of Insertion: 22:20 Discharge Data Data Completed and Pending: Completed Studies During Hospitalization Category Date Time Status XR chest 1V saniya ble [id number] Urgent Exams 07/17/20 17:19 Completed CV echo complete* [id number] Routine Ultrasound 07/18/20 09:51 Completed Pending at discharge Category Date Time Status Hemoglobin A1C Ro utine Lab 07/27/20 14:15 Ordered Sputum Culture an d Gram Stain Routi ne Lab 07/17/20 23:11 Uncollected Labs from last 24 hours 07/27/20 07/27/20 07/26/20 10:59 07:24 19:57 POC Glucose 310 H 145 H 345 H 07/26/20 16:03 POC Glucose 341 H Vitals: Last Vital Signs Temp 98.5 F 07/27/20 11:24 Pulse 83 07/27/20 11:35 Resp 17 07/27/20 11:29 BP 123/77 07/27/20 11:24 Pulse Ox 98 07/27/20 11:29 Discharge Plan Discharge Patient Disposition: Hospice - Home Condition: Stable Prescriptions: New atorvastatin 40 mg Tablet 40 mg PO BEDTIME 30 Days Qty: 30 RF: 0 clopidogrel 75 mg Tablet 75 mg PO DAILY 30 Days Qty: 30 RF: 0 tamsulosin 0.4 mg Capsule 0.4 mg PO DAILY 30 Days Qty: 30 RF: 0 potassium chloride 20 mEq tablet,ER particles/crystals 20 meq PO DAILY 30 Days Qty: 30 RF: 0 Macrodantin 50 mg capsule 50 mg PO Q12H 30 Days Qty: 60 RF: 0 Protonix 40 mg tablet,delayed release (DR/EC) 40 mg PO DAILY 30 Days Qty: 30 RF: 0 Xanax 0.5 mg Tablet 0.5 mg PO Q6H PRN (Reason: Anxiety) 7 Days Qty: 28 RF: 0 Continued ipratropium-albuterol 0.5 mg-3 mg(2.5 mg base)/3 mL solution for nebulization 2.5 ml INHALATION Q4H PRN (Reason: Shortness Of Breath Or Wheezing) RF: 0 aspirin 81 mg Tablet,Delayed Release (Dr/Ec) 81 mg PO DAILY PRN (Reason: UNKNOWN) 30 Days Qty: 30 RF: 0 metoprolol tartrate 25 mg Tablet 25 mg PO BID 30 Days Qty: 60 RF: 0 sertraline 25 mg tablet 25 mg PO BEDTIME RF: 0 oxybutynin chloride 5 mg tablet 5 mg PO TID PRN (Reason: Bladder Spasms) RF: 0 ondansetron HCl 4 mg tablet 4 mg PO Q6H PRN (Reason: n/v) RF: 0 hydrocodone-acetaminophen 5-325 mg Tablet 1 tab PO Q6H PRN (Reason: Pain) Qty: 20 RF: 0 albuterol sulfate 2.5 mg /3 mL (0.083 %) Solution For Nebulization 2.5 mg INHALATION Q4H PRN (Reason: Shortness Of Breath) RF: 0 finasteride 5 mg Tablet 5 mg PO BEDTIME Qty: 30 RF: 0 gabapentin 100 mg Capsule 100 mg PO BID PRN (Reason: Pain) RF: 0 Changed Lasix 20 mg tablet 40 mg PO BID 30 Days Qty: 60 RF: 0 Discontinued famotidine 20 mg Tablet 20 mg PO BID PRN (Reason: UNKNOWN) RF: 0 Discharge Diet: Cardiac Discharge Activity: Resume usual activity Activity Restrictions/Additional Instructions: Measure daily weight at home, if increasing by 2 pounds every day for 2 days, increase dose of Lasix to 60 mg p.o. twice daily and monitor for weight changes. If weight continues to increase in spite of increased dose, increase further to 80 mg p.o. twice daily and alert the hospice nurse so she can get in contact with your physician. Discharge Attestations Time Spent in Discharge Care*: greater than 30 min Specific Discharge Activities: educating patient, educating and/or supporting family/caregiver, discussing with manager of case management/social workers/dc planners, documenting/other paperwork and evaluating patient/reviewing data Time Spent in Smoking Cessation: 3 to 10 minutes Status at Discharge: Cognitive status at discharge: cognitively intact, Behavioral status at discharge: cooperative, Functional status at discharge: uses cane/walker Overall status at discharge: patient is back to baseline Quality Metrics Clinical Quality Measures During this hospital stay, did patient experience: None Coding Level of Care Code Acute Personal Injury Specialist for Chg Fwd Diagnoses CHF exacerbation I50.33 Heart failure type: diastolic COPD exacerbation J44.1 Acute kidney injury superimposed on CKD N17.9; N18.9 Abnormal urine cytology R82.89 Hypertension I10 Hypertension type: essential hypertension
[2020-07-27 16:50] LABS: Glucose Point of Care 164 mg/dL (70-110)
[2020-07-27] MEDS: metoprolol tartrate 25 mg Tablet PO (17:04)
[2020-07-27] MEDS: sennosides-docusate Tablet 1 TAB PO (17:04)
[2020-07-27] MEDS: ALPRAZolam 0.5 mg Tablet PO (20:05)
[2020-07-27] MEDS: atorvastatin 40 mg Tablet PO (20:06)
[2020-07-27] MEDS: finasteride 5 mg Tablet PO (20:06)
[2020-07-27 20:16] LABS: Estmated Average Glucose 177; Hemoglobin A1C 7.8 % (4.0-6.0)
[2020-07-27 21:37] LABS: Glucose Point of Care 189 mg/dL (70-110)
[2020-07-28] VITALS (14 sets, daily range): BP systolic 116–138; BP diastolic 63–85; PULSE 71–101; RESP 18–24; TEMP 36.6–37.1; O2SAT 91–97
[2020-07-28] MEDS: ipratropium-albuterol 3 mL Neb INHALATION ×4 (00:18→15:01)
[2020-07-28 06:11] LABS: Glucose Point of Care 154 mg/dL (70-110)
[2020-07-28] MEDS: HYDROcodone-acetaminophen 5-325 mg Tablet 1 TAB PO ×2 (06:44→13:31)
[2020-07-28] MEDS: heparin 5,000 unit/mL INJ 1 mL 5000 UNIT SUBCUT (06:44)
[2020-07-28] MEDS: FUROsemide 20 mg Tablet 40 MG PO (07:54)
[2020-07-28] MEDS: clopidogrel 75 mg Tablet PO (09:34)
[2020-07-28] MEDS: tamsulosin 0.4 mg Capsule PO (09:34)
[2020-07-28] MEDS: aspirin 81 mg EC Tablet PO (09:34)
[2020-07-28] MEDS: metoprolol tartrate 25 mg Tablet PO (09:34)
[2020-07-28] MEDS: famotidine 20 mg Tablet PO (09:35)
[2020-07-28] MEDS: sennosides-docusate Tablet 1 TAB PO (09:35)
[2020-07-28] MEDS: bisacodyl 10 mg Supp PR (09:35)
[2020-07-28] MEDS: sertraline 50 mg Tablet 25 MG PO (09:35)
[2020-07-28 11:02] LABS: Glucose Point of Care 229 mg/dL (70-110)
--- NOTE | 2020-07-28 11:21 | P.PN_ITS ---
Subjective Subjective: Interval history: Please refer to DC summary from 07/27. He denies chest pain today. No trouble breathing. Overall he feels he has not been doing great recently. Vitals/I&O/Wt Last Vital Signs Temp 98.8 F 07/28/20 08:00 Pulse 101 H 07/28/20 08:00 Resp 18 07/28/20 08:00 BP 116/63 07/28/20 08:00 Pulse Ox 94 07/28/20 08:00 07/27/20 07/28/20 07/28/20 22:59 06:59 14:59 Intake Total 360 / 360 Output Total 1050 / 1050 2150 / 3200 Balance -1050 / -570 -2150 / -2720 360 / 360 Weight last 48 hrs Weight 87.226 kg Weight 86.409 kg Physical Exam Const: COMMON NORMALS: no acute distress, patient oriented x3 and alert GENERAL APPEARANCE: cooperative and comfortable ORIENTATION/CONSCIOUSNESS: Yes awake OTHER: Sitting up in chair. HENMT: COMMON NORMALS: oropharynx normal Neck/C-Spine: COMMON NORMALS: no JVD Resp: COMMON NORMALS: normal respiratory effort AUSCULTATION: wheezes left lower (minimal wheeze) Cardio: COMMON NORMALS: no JVD, regular rhythm, S1 normal heart sound present, S2 normal heart sound present and No murmurs present (Cardio) RHYTHM: regular rhythm HEART SOUNDS: S1 normal heart sound present and S2 normal heart sound present GI: COMMON NORMALS: Normal to inspection, nondistended, normoactive bowel sounds present, Soft to palpation and non-tender PALPATION: Yes Soft to palpation Extremity: COMMON NORMALS: no joint enlargement GENERAL: Yes edema (2+) Neuro: COMMON NORMALS: patient oriented x3 and moves all extremities SENSORIUM/ORIENTATION: Yes alert Skin: GENERAL SKIN EXAM: dry skin Urinary Catheter Management^: Drake: Cath Placed During This Visit: yes Reason for Continuing Indwelling Catheter: Accurate Measurement of Urinary Output in Critically Ill Patients Urinary Catheter Date of Insertion: 07/17/20 Urinary Catheter Time of Insertion: 22:20 Data : 07/25/20 16:21 07/26/20 03:40 A&P Assessment and plan (1) CHF exacerbation: Continue Lasix after discharge. Status: Resolved Qualifiers: Heart failure type: diastolic Qualified Code(s): I50.33 - Acute on chronic diastolic (congestive) heart failure (2) COPD exacerbation: Steroid taper on discharge as he does have a small amount of wheezing in L lung. Denies significant cough/phlegm. Status: Acute (3) Acute kidney injury superimposed on CKD: Status: Acute (4) Abnormal urine cytology: Completed treatment for ESBL E coli UTI. Status: Acute (5) Hypertension: Status: Chronic Qualifiers: Hypertension type: essential hypertension Qualified Code(s): I10 - Essential (primary) hypertension (6) Chronic indwelling Drake catheter: Status: Chronic (7) Aortic stenosis, mild: Status: Chronic (8) Diabetes mellitus, type II: Metformin added. Status: Chronic Qualifiers: Chronic kidney disease stage: stage 3 (moderate) Diabetes mellitus complication detail: with chronic kidney disease Diabetes mellitus complication status: with kidney complications Diabetes mellitus skilled nursing insulin use: without buttermilk drier operator use Qualified Code(s): E11.22 - Type 2 diabetes mellitus with diabetic chronic kidney disease; N18.3 - Chronic kidney disease, stage 3 (moderate) (9) Leg weakness, bilateral: Status: Chronic (10) Hospice care patient: Status: Chronic Attestations Medical Necessity Statement*: Returning home today with hospice care. Coding Level of Care Code Acute Capsule Filling Machine Operator for [facility] Fwd Exam Comprehensive Diagnoses CHF exacerbation I50.33 Heart failure type: diastolic COPD exacerbation J44.1 Acute kidney injury superimposed on CKD N17.9; N18.9 Abnormal urine cytology R82.89 Hypertension I10 Hypertension type: essential hypertension Chronic indwelling Drake catheter Z96.0 Aortic stenosis, mild I35.0 Diabetes mellitus, type II E11.22; N18.3 Chronic kidney disease stage: stage 3 (moderate) Diabetes mellitus complication detail: with chronic kidney disease Diabetes mellitus complication status: with kidney complications Diabetes mellitus buttermilk drier operator insulin use: without skilled nursing use Leg weakness, bilateral R29.898 Hospice care patient Z51.5
[2020-07-28] MEDS: ondansetron 2 mg/ML SDV 2 mL 4 MG IVP (11:48)
--- NOTE | 2020-07-28 15:12 | PC.NURSE ---
Discharge instructions given per the physician's orders. Patient verbalized understanding of teaching and medication changes. IV has been removed. DC mediations and belongings with patient. No further needs identified at this time. Nurse to continue to monitor.
--- NOTE | 2020-07-28 15:24 | DCPLANNER ---
IMM completed with pt on 07/28/20 @ [id number]. Pt already had a copy of rights.
== END 2020-07-28 15:14 | disposition hospice, home (50) | DRG 291 ==
LOC: ER 17:27 → CSU 22:11
PROVIDERS: Family Medicine; Student in an Organized Health Care Education/Training Program; Admitting Provider Internal Medicine; Emergency Provider Family Medicine; PCP Family Medicine; Visit Provider Internal Medicine
DX: I13.0 Hypertensive heart and chronic kidney disease with heart failure and stage 1 through stage 4 chronic kidney disease, or unspecified chronic kidney disease (principal); I50.33 Acute on chronic diastolic (congestive) heart failure; T83.518A Infection and inflammatory reaction due to other urinary catheter, initial encounter; J44.1 Chronic obstructive pulmonary disease with (acute) exacerbation; N13.8 Other obstructive and reflux uropathy; I48.20 Chronic atrial fibrillation, unspecified; N17.9 Acute kidney failure, unspecified; N18.30 Chronic kidney disease, stage 3 unspecified; E11.22 Type 2 diabetes mellitus with diabetic chronic kidney disease; N63.20 Unspecified lump in the left breast, unspecified quadrant; Z96.0 Presence of urogenital implants; I35.0 Nonrheumatic aortic (valve) stenosis; N40.1 Benign prostatic hyperplasia with lower urinary tract symptoms; Z87.440 Personal history of urinary (tract) infections; M19.90 Unspecified osteoarthritis, unspecified site; G89.29 Other chronic pain; I25.10 Atherosclerotic heart disease of native coronary artery without angina pectoris; Z99.81 Dependence on supplemental oxygen; Y73.1 Therapeutic (nonsurgical) and rehabilitative gastroenterology and urology devices associated with adverse incidents; B96.20 Unspecified Escherichia coli [E. coli] as the cause of diseases classified elsewhere; E66.9 Obesity, unspecified; Z68.31 Body mass index [BMI] 31.0-31.9, adult; Z79.51 Long term (current) use of inhaled steroids; Z79.891 Long term (current) use of opiate analgesic; Z79.82 Long term (current) use of aspirin; F41.9 Anxiety disorder, unspecified; Z66 Do not resuscitate; K59.00 Constipation, unspecified; E78.5 Hyperlipidemia, unspecified
CPT/HCPCS: 12345; 36415; 36416; 36600; 51702; 71045; 80048; 80053; 81001; 82805; 82962; 83036; 83605; 83880; 84484; 85025; 87077; 87086; 87186; 87426; 87804; 92610; 93005; 93306; 94640; 94664; 96372; 97110; 97116; 97161; 97530; 99283; J0743; J1100; J1644; J1815; J1940; J1956; J2405; J2930; J3535; J7512

== ENCOUNTER 2020-08-24 15:08 | Inpatient (IN) | payer OTHER, MEDICARE, SELFPAY ==
[2020-08-24 15:11] VITALS: BMI 29.6
--- NOTE | 2020-08-24 16:56 | P.HP_ITS ---
Providers/Chief Complaint Admitting Physician: Katty Oquendo MD Primary Care Provider: Erik Adkins DO Chief Complaint: Hospice Respite Care History of Present Illness Vladimir Farnsworth is a 80-year-old gentleman with history of COPD,CHF, chronic indwelling Drake, Anxiety,CAD on medical management recently discharged from hospital on home hospice referred back to hospital today for inpatient hospice respite care. He denies any complaints of chest pain, dyspnea, palpitations Review of Systems General: Reports: 10 or more systems reviewed and unremarkable except in HPI and below Const: Denies: fever(s), chills or body aches Eyes: Denies: change in vision, blurry vision or photophobia ENMT: Reports: hoarseness; Denies: throat pain, enlarged tonsils, odynophagia or nasal congestion Card: Denies: chest pain, palpitations, irregular heart rhythm, edema, swelling of feet/ankles, lightheadedness, pre-syncope, dyspnea on exertion or orthopnea Resp: Denies: dyspnea, productive cough, non-productive cough, wheezing, stridor, pain on inspiration, change in phlegm color, hemoptysis or chest congestion GI: Denies: abdominal pain, nausea, vomiting, hematemesis, coffee ground emesis, dysphagia, heartburn, diarrhea, constipation, GI cramping, change in stool character, hematochezia or melena : Denies: flank pain, dysuria, urinary frequency, urinary urgency, urinary hesitancy or hematuria Musc: Denies: neck pain, back pain, extremity pain, joint swelling, joint warmth or deformity Neuro: Denies: headache(s), numbness in extremities, weakness in extremities, sensory changes, difficulty walking, frequent falls, dizziness, vertigo, behavioral changes, Slurred speech present or seizure-like activity Psych: Denies: anxiety, depression, suicidal ideation or homicidal ideation Endo: Denies: polyuria, polydipsia, tired all the time, cold intolerance or hot flashes Riky/Lymph: Denies: easy bruising or easy bleeding Medications/Allergies Home Medications Medication Instructions Recorded Confirmed Last Taken Type ipratropium-albuterol 2.5 ml INHALATION Q4H PRN 11/03/19 08/24/20 04/01/20 History oxybutynin chloride 5 mg PO TID PRN 02/21/20 08/24/20 03/31/20 History sertraline 25 mg PO BEDTIME 02/21/20 08/24/20 03/31/20 History ondansetron HCl 4 mg PO Q6H PRN 04/01/20 08/24/20 03/31/20 History hydrocodone-acetaminophen 1 tab PO Q6H PRN #20 tab 04/05/20 08/24/20 Unknown Rx albuterol sulfate 2.5 mg INHALATION Q4H PRN 05/26/20 08/24/20 Unknown History finasteride 5 mg PO BEDTIME #30 tab 05/31/20 08/24/20 Unknown Rx gabapentin 100 mg PO TID PRN 06/02/20 08/24/20 Unknown History alprazolam [Xanax] 0.5 mg PO Q6H PRN 7 Days #28 tab 07/27/20 08/24/20 Unknown Rx aspirin 81 mg PO DAILY PRN 30 Days #30 tab 07/27/20 08/24/20 Unknown Rx atorvastatin 40 mg PO BEDTIME 30 Days #30 tab 07/27/20 08/24/20 Unknown Rx clopidogrel 75 mg PO DAILY 30 Days #30 tab 07/27/20 08/24/20 Unknown Rx pantoprazole [Protonix] 40 mg PO DAILY 30 Days #30 tab 07/27/20 08/24/20 Unknown Rx potassium chloride 20 meq PO DAILY 30 Days #30 tab 07/27/20 08/24/20 Unknown Rx tamsulosin 0.4 mg PO DAILY 30 Days #30 cap 07/27/20 08/24/20 Unknown Rx metformin 500 mg PO BID #60 tab 07/28/20 08/24/20 Unknown Rx furosemide [Lasix] 40 mg PO DAILY 08/24/20 08/24/20 Unknown History metoprolol tartrate 12.5 mg PO BID 08/24/20 08/24/20 Unknown History Allergies Allergy/AdvReac Type Severity Reaction Status Date / Time No Known Allergies Allergy Verified 07/29/20 16:09 PFSH Acute PFSH: Medical History Aortic stenosis, mild BPH with urinary obstruction CHF (congestive heart failure) Chronic indwelling Drake catheter Chronic kidney disease, stage 3 COPD (chronic obstructive pulmonary disease) COPD (chronic obstructive pulmonary disease) Diabetes mellitus, type II Erectile dysfunction History of ESBL E. coli infection urine, history of ESBL E. 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 Social History Smoking and tobacco status: never smoked Alcohol intake: never Marital status: / Current occupational status: retired and disabled Vitals/I&O/Wt Weight last 48 hrs Weight 88.36 kg Physical Exam Const: COMMON NORMALS: no acute distress, patient oriented x3 and alert HENMT: COMMON NORMALS: normocephalic and atraumatic HEAD & SCALP: normocephalic and atraumatic Eye: COMMON NORMALS: Equal, round and reactive pupils present, EOMs intact bilaterally, conjunctivae normal and no scleral icterus CONJUNCTIVA: Yes conjunctivae normal PUPIL: Yes Equal, round and reactive pupils present Neck/C-Spine: COMMON NORMALS: no JVD Resp: COMMON NORMALS: normal respiratory effort, No retractions, No use of accessory muscles, clear to auscultation bilaterally and percussion normal AUSCULTATION: clear to auscultation bilaterally PERCUSSION: percussion normal Cardio: COMMON NORMALS: no JVD, regular rate, regular rhythm, S1 normal heart sound present, S2 normal heart sound present, No gallops present (Cardio), No clicks present (Cardio), No murmurs present (Cardio), No rub (Cardio) and Peripheral pulses 2+ throughout RATE: regular rate RHYTHM: regular rhythm HEART SOUNDS: S1 normal heart sound present and S2 normal heart sound present PERIPHERAL PULSES: Peripheral pulses 2+ throughout GI: COMMON NORMALS: Normal to inspection, nondistended, normoactive bowel sounds present, Soft to palpation, non-tender, No hepatosplenomegaly present, no masses and no bruits PALPATION: Yes Soft to palpation and Yes No hepatosplenomegaly present Extremity: COMMON NORMALS: normal to inspection, full ROM, capillary refill normal, no joint enlargement, no clubbing, cyanosis or edema, no calf tenderness and no pedal edema Neuro: COMMON NORMALS: patient oriented x3, CN's II-XII intact bilaterally, moves all extremities, no focal motor deficits, no sensory deficits noted, deep tendon reflexes 2+ bilaterally and gait normal SENSORIUM/ORIENTATION: Yes alert Psych: COMMON NORMALS: mental status grossly normal, Normal thought process present, cooperative, normal affect, speech normal, activity/motor behavior normal, denies hallucinations, denies homicidal ideation and denies suicidal ideation SPEECH: Yes normal speech THOUGHT PROCESS: Normal thought process present Skin: COMMON NORMALS: no rashes or lesions noted, no wounds, turgor normal, no jaundice, no petechiae and no mottling GENERAL SKIN EXAM: no rashes or lesions noted and turgor normal A&P Assessment and plan (1) Hospice program care: Patient with mutliple comorbidities as mentioned above, presenting for hospice respite care Continue his home medications including ASA, statin, lasix 40mg po daily, metoprolol. Currently euvolemic , no signs of decompensation currently no evidence of copd exacebation, continue duoneb inhalation prn , supplemental 02 to keep sat >92% oncedaily vitals continue metformin 500mg bid at home dosing. 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
[2020-08-24 18:28] VITALS: PULSE 87; O2SAT 95
[2020-08-24 20:00] VITALS: BP 139/89; PULSE 116; RESP 27; TEMP 36.9; O2SAT 99
[2020-08-24] MEDS: finasteride 5 mg Tablet PO (20:02)
[2020-08-24] MEDS: gabapentin 100 mg Capsule PO (20:02)
[2020-08-24] MEDS: atorvastatin 40 mg Tablet PO (20:02)
[2020-08-24] MEDS: HYDROcodone-acetaminophen 5-325 mg Tablet 1 TAB PO (20:03)
[2020-08-24] MEDS: ALPRAZolam 0.5 mg Tablet PO (20:06)
[2020-08-24 20:21] VITALS: PULSE 110; RESP 24; O2SAT 98
[2020-08-24] MEDS: ipratropium-albuterol 3 mL Neb 2.5 ML INHALATION (20:21)
[2020-08-24 20:25] VITALS: PULSE 112; RESP 22; O2SAT 99
--- NOTE | 2020-08-25 01:37 | PC.NURSE ---
Patient is currently resting with eyes closed. Will monitor.
[2020-08-25] MEDS: HYDROcodone-acetaminophen 5-325 mg Tablet 1 TAB PO ×4 (01:56→19:30)
[2020-08-25] MEDS: ALPRAZolam 0.5 mg Tablet PO ×2 (01:59→19:29)
--- NOTE | 2020-08-25 04:40 | PC.NURSE ---
Patient refused his Zoloft last night, stating honey, I can't take that it knocks me out. Patient then asked for a Xanax. Patient was educated on both medications and potential side effects.
[2020-08-25 07:26] VITALS: PULSE 114; RESP 20; O2SAT 96
[2020-08-25] MEDS: potassium chloride ER 20 mEq Tablet PO (08:08)
[2020-08-25] MEDS: tamsulosin 0.4 mg Capsule PO (08:08)
[2020-08-25] MEDS: gabapentin 100 mg Capsule PO ×3 (08:08→19:30)
[2020-08-25] MEDS: FUROsemide 20 mg Tablet 40 MG PO (08:08)
[2020-08-25] MEDS: metoprolol tartrate 25 mg Tablet 12.5 MG PO ×2 (08:08→16:54)
[2020-08-25] MEDS: metformin 500 mg Tablet PO ×2 (08:08→16:54)
[2020-08-25] MEDS: clopidogrel 75 mg Tablet PO (08:08)
[2020-08-25] MEDS: pantoprazole DR 40 mg Tablet PO (08:08)
[2020-08-25 08:38] VITALS: BP 142/79; PULSE 115; RESP 18; TEMP 36.6; O2SAT 98
--- NOTE | 2020-08-25 09:24 | PC.CHAP ---
Pastoral Care Encounter/Spiritual Assessment Type of Contact [] Declined aws developer visit [] Patient/Family/Request visit [] Outpatient visit [] Follow-up visit [] Physician referral [] Code/Alert [x] Routine visit [] Staff referral [] Actively dying [] Patient sleeping [] Family support [] [] Out of room [] Palliative care [] [] Receiving care in room [] Pre-surgical visit [] Trauma [] Long length of stay [] ICU visit [] Other: Relational/Emotional Strength [] Patient feels connected with others/family/visitors/staff [] Distress [] Loneliness/isolation [] Abandonment Spirituality of Patient [x] Person of Rosio [] Attends Sikh of their Rosio [] Believes in Prayer [] Reads Bible or Jehovah'S Witness materials [] There are Spiritual issues to be addressed Spa Coordinator Interventions [x] Prayer [x] Active listening [x] Non-anxious presence [x] Spiritual/emotional support [] Crisis/trauma care [] Spiritual counseling [] Bereavement support [] Provided bereavement packet [] Provided Bible/devotional materials [] Provided toy/stuffed animal, coloring book to patient or family member [] Provided Communion [] Anointing/Phyllis [] Salvation [x] Completed spiritual assessment [] Other: Impact on Illness or Injury [] Angry [] Fearful [] Anxious [] Often cries [] Exhaustion [] Unable to work [] Unable to attend taoist [] Unable to walk/stand [] Unable to read [] Unable to drive [] Unable to eat/drink [] Unable to sleep [] Unable to be with family [] Patient intubated [] Other: Summary aws developer assured patient he doesn't need to be alone.. if requested aws developer will come and set with him... will revisit tomorrow Time spent with patient 10 min
[2020-08-25 11:32] VITALS: BP 152/89; PULSE 94; RESP 18; TEMP 36.4; O2SAT 99
--- NOTE | 2020-08-25 11:46 | P.PN_ITS ---
Subjective Subjective: Interval history: Patient was seen and examined this morning. He deny any active complain.Resting comfortably in bed. Vitals reviewed. Medications: Reviewed: Yes Vitals/I&O/Wt Last Vital Signs Temp 97.6 F 08/25/20 11:32 Pulse 94 08/25/20 11:32 Resp 18 08/25/20 11:32 BP 152/89 08/25/20 11:32 Pulse Ox 99 08/25/20 11:32 08/24/20 08/25/20 08/25/20 22:59 06:59 14:59 Intake Total 240 / 240 300 / 540 240 / 240 Output Total 1250 / 1250 1000 / 1000 Balance 240 / 240 -950 / -710 -760 / -760 Weight last 48 hrs Weight 88.36 kg Physical Exam HENMT: COMMON NORMALS: normocephalic and atraumatic HEAD & SCALP: normocephalic and atraumatic Chest: CHEST: Yes Symmetrical chest wall rise OTHER: Decreased AIR ENTRY b/l, no whezzing, no ronchii Resp: EFFORT & INSPECTION: Yes symmetric chest movement Cardio: COMMON NORMALS: regular rate, regular rhythm, S1 normal heart sound present, S2 normal heart sound present, No gallops present (Cardio), No murmurs present (Cardio), No rub (Cardio) and Peripheral pulses 2+ throughout RATE: regular rate RHYTHM: regular rhythm HEART SOUNDS: S1 normal heart sound present and S2 normal heart sound present PERIPHERAL PULSES: Peripheral pulses 2+ throughout GI: COMMON NORMALS: Normal to inspection, nondistended, normoactive bowel sounds present, Soft to palpation, non-tender, No hepatosplenomegaly present and no masses AUSCULTATION: Yes normoactive bowel sounds PALPATION: Yes Soft to palpation and Yes No hepatosplenomegaly present RECTAL EXAM: Yes deferred A&P Assessment and plan (1) Hospice program care: Patient with mutliple comorbidities as mentioned above, presenting for hospice respite care Continue his home medications including ASA, statin, lasix 40mg po daily, metoprolol. Currently euvolemic , no signs of decompensation currently no evidence of copd exacebation, continue duoneb inhalation prn , supplemental 02 to keep sat >92% oncedaily vitals continue metformin 500mg bid at home dosing. no aggressive fingerstick checks unles clinically indicated DNR/DNI Status: Acute Attestations Medical Necessity Statement*: hospice respite care, anticipate >2midnight admission Coding Level of Care Code Acute Reference Services Head for Chg Fwd Diagnoses Hospice program care Z51.5
[2020-08-25 16:58] VITALS: BP 131/84; PULSE 117; RESP 22; O2SAT 99
--- NOTE | 2020-08-25 19:26 | PC.NURSE ---
Patient is refusing Zoloft, stating I'm a little bit afraid of that stuff.
[2020-08-25] MEDS: finasteride 5 mg Tablet PO (19:29)
[2020-08-25] MEDS: atorvastatin 40 mg Tablet PO (19:30)
[2020-08-25 19:51] VITALS: PULSE 120; RESP 19; O2SAT 97
[2020-08-26] MEDS: ALPRAZolam 0.5 mg Tablet PO ×2 (02:19→21:05)
[2020-08-26] MEDS: HYDROcodone-acetaminophen 5-325 mg Tablet 1 TAB PO ×4 (02:19→21:05)
[2020-08-26] MEDS: metformin 500 mg Tablet PO ×2 (08:00→17:38)
[2020-08-26] MEDS: tamsulosin 0.4 mg Capsule PO (08:25)
[2020-08-26] MEDS: FUROsemide 20 mg Tablet 40 MG PO (08:25)
[2020-08-26] MEDS: aspirin 81 mg EC Tablet PO (08:25)
[2020-08-26] MEDS: potassium chloride ER 20 mEq Tablet PO (08:25)
[2020-08-26] MEDS: clopidogrel 75 mg Tablet PO (08:25)
[2020-08-26] MEDS: metoprolol tartrate 25 mg Tablet 12.5 MG PO ×2 (08:26→17:37)
[2020-08-26] MEDS: pantoprazole DR 40 mg Tablet PO (08:27)
[2020-08-26] MEDS: gabapentin 100 mg Capsule PO ×3 (08:27→18:56)
[2020-08-26 09:06] VITALS: PULSE 101; RESP 17; O2SAT 96
[2020-08-26] MEDS: ipratropium-albuterol 3 mL Neb 2.5 ML INHALATION ×2 (09:06→15:15)
[2020-08-26 09:12] VITALS: PULSE 103
[2020-08-26 10:00] VITALS: BP 105/70; PULSE 95; RESP 18; TEMP 36.9; O2SAT 97
--- NOTE | 2020-08-26 10:31 | PC.CHAP ---
Pastoral Care Encounter/Spiritual Assessment Type of Contact [] Declined gravel wheeler visit [] Patient/Family/Request visit [] Outpatient visit [] Follow-up visit [] Physician referral [] Code/Alert [x] Routine visit [] Staff referral [] Actively dying [] Patient sleeping [] Family support [] [] Out of room [] Palliative care [] [] Receiving care in room [] Pre-surgical visit [] Trauma [] Long length of stay [] ICU visit [] Other: Relational/Emotional Strength [] Patient feels connected with others/family/visitors/staff [] Distress [] Loneliness/isolation [] Abandonment Spirituality of Patient [] Person of Rosio [] Attends Spiritism of their Rosio [] Believes in Prayer [] Reads Bible or Bahai materials [] There are Spiritual issues to be addressed Notch Machine Operator Interventions [x] Prayer [] Active listening [] Non-anxious presence [] Spiritual/emotional support [] Crisis/trauma care [] Spiritual counseling [] Bereavement support [] Provided bereavement packet [] Provided Bible/devotional materials [] Provided toy/stuffed animal, coloring book to patient or family member [] Provided Communion [] Anointing/[place] [] Salvation [x] Completed spiritual assessment [] Other: Impact on Illness or Injury [] Angry [] Fearful [] Anxious [] Often cries [] Exhaustion [] Unable to work [] Unable to attend baptism [] Unable to walk/stand [] Unable to read [] Unable to drive [] Unable to eat/drink [] Unable to sleep [] Unable to be with family [] Patient intubated [] Other: Summary patient concerned about daughter, because of snow and cold weather... gravel wheeler obtained phone number from staff. and patient and gravel wheeler called daughter to check on her. Time spent with patient 15 min
--- NOTE | 2020-08-26 11:51 | P.EN_ITS ---
Event Note Event Note: Patient here for respite care under hospice. Denied any concerns today or needs. On respite until at which time he will be discharged home or go to detention facility. I will check back with the patient tomorrow to make sure no needs are noted.
[2020-08-26 15:16] VITALS: PULSE 94; RESP 18; O2SAT 96
[2020-08-26 15:21] VITALS: PULSE 93
[2020-08-26] MEDS: atorvastatin 40 mg Tablet PO (18:56)
[2020-08-26] MEDS: finasteride 5 mg Tablet PO (18:57)
--- NOTE | 2020-08-26 19:25 | PC.NURSE ---
hospice visited today.states on .. pt will either go home (if heat and water are fixed)..or to snf.
[2020-08-26 19:57] VITALS: PULSE 98; RESP 18; O2SAT 96
[2020-08-27] MEDS: HYDROcodone-acetaminophen 5-325 mg Tablet 1 TAB PO ×4 (03:04→21:36)
[2020-08-27] MEDS: ALPRAZolam 0.5 mg Tablet PO ×2 (03:04→21:36)
[2020-08-27] MEDS: metformin 500 mg Tablet PO ×2 (09:11→17:32)
[2020-08-27] MEDS: clopidogrel 75 mg Tablet PO (09:11)
[2020-08-27] MEDS: metoprolol tartrate 25 mg Tablet 12.5 MG PO ×2 (09:12→17:32)
[2020-08-27] MEDS: tamsulosin 0.4 mg Capsule PO (09:12)
[2020-08-27] MEDS: pantoprazole DR 40 mg Tablet PO (09:12)
[2020-08-27] MEDS: potassium chloride ER 20 mEq Tablet PO (09:12)
[2020-08-27] MEDS: gabapentin 100 mg Capsule PO ×3 (09:12→20:03)
[2020-08-27] MEDS: FUROsemide 20 mg Tablet 40 MG PO (09:12)
--- NOTE | 2020-08-27 09:31 | PC.CHAP ---
Pastoral Care Encounter/Spiritual Assessment Type of Contact [] Declined pairer visit [] Patient/Family/Request visit [] Outpatient visit [] Follow-up visit [] Physician referral [] Code/Alert [x] Routine visit [] Staff referral [] Actively dying [] Patient sleeping [] Family support [] [] Out of room [] Palliative care [] [] Receiving care in room [] Pre-surgical visit [] Trauma [] Long length of stay [] ICU visit [] Other: Relational/Emotional Strength [] Patient feels connected with others/family/visitors/staff [] Distress [] Loneliness/isolation [] Abandonment Spirituality of Patient [x] Person of Rosoi [] Attends Zoroastrian of their Rosio [] Believes in Prayer [] Reads Bible or Hinduism materials [] There are Spiritual issues to be addressed Seasonal Warehouse Associate Interventions [x] Prayer [x] Active listening [x] Non-anxious presence [x] Spiritual/emotional support [] Crisis/trauma care [] Spiritual counseling [] Bereavement support [] Provided bereavement packet [] Provided Bible/devotional materials [] Provided toy/stuffed animal, coloring book to patient or family member [] Provided Communion [] Anointing/[place] [] Salvation [] Completed spiritual assessment [] Other: Impact on Illness or Injury [] Angry [] Fearful [] Anxious [] Often cries [] Exhaustion [] Unable to work [] Unable to attend zoroastrian [] Unable to walk/stand [] Unable to read [] Unable to drive [] Unable to eat/drink [] Unable to sleep [] Unable to be with family [] Patient intubated [] Other: Summary patient scheduled to leave tomorrow... not wanting to go to rest home... want to return to his home.. advised nurse to make note.... Time spent with patient 15 min
[2020-08-27 10:00] VITALS: BP 108/71; PULSE 112; RESP 18; TEMP 36.6; O2SAT 96
--- NOTE | 2020-08-27 10:06 | PM.EVENT ---
Event Note Event Note: No needs noted today per nursing. Have asked that if patient has any questions or concerns I would be notified.
[2020-08-27] MEDS: ipratropium-albuterol 3 mL Neb 2.5 ML INHALATION (10:22)
[2020-08-27 10:25] VITALS: PULSE 126; RESP 20; O2SAT 92
--- NOTE | 2020-08-27 10:31 | DCPLANNER ---
IMM completed on 08/27/20 @ 7145. Copy of rights given to pt.
[2020-08-27 10:36] VITALS: PULSE 120
[2020-08-27 15:26] VITALS: BP 131/83; PULSE 117; RESP 22; TEMP 37; O2SAT 90
[2020-08-27] MEDS: atorvastatin 40 mg Tablet PO (20:03)
[2020-08-27] MEDS: finasteride 5 mg Tablet PO (20:03)
--- NOTE | 2020-08-27 20:09 | PC.NURSE ---
Patient refuses Hydrocodone and Xanax at this time. He stated he would like to take them at a later time.
[2020-08-27 20:20] VITALS: PULSE 78; RESP 18; O2SAT 96
--- NOTE | 2020-08-27 23:15 | PC.NURSE ---
Patient was given sponge bath and linen change by myself and TECHNICAL ACCOUNT MANAGER.
[2020-08-28 01:15] VITALS: BP 118/68; PULSE 95; O2SAT 96
[2020-08-28 01:22] LABS: Glucose Point of Care 146 mg/dL (70-110)
[2020-08-28] MEDS: HYDROcodone-acetaminophen 5-325 mg Tablet 1 TAB PO ×2 (03:22→09:28)
[2020-08-28] MEDS: ALPRAZolam 0.5 mg Tablet PO (03:22)
--- NOTE | 2020-08-28 03:56 | PC.NURSE ---
Patient given PRN Hydrocodone and Xanax per patient request.
[2020-08-28] MEDS: metformin 500 mg Tablet PO (09:26)
[2020-08-28] MEDS: FUROsemide 20 mg Tablet 40 MG PO (09:27)
[2020-08-28] MEDS: potassium chloride ER 20 mEq Tablet PO (09:27)
[2020-08-28] MEDS: metoprolol tartrate 25 mg Tablet 12.5 MG PO (09:27)
[2020-08-28] MEDS: pantoprazole DR 40 mg Tablet PO (09:28)
[2020-08-28] MEDS: tamsulosin 0.4 mg Capsule PO (09:28)
[2020-08-28] MEDS: gabapentin 100 mg Capsule PO (09:28)
[2020-08-28] MEDS: clopidogrel 75 mg Tablet PO (09:28)
--- NOTE | 2020-08-28 09:51 | P.DS_ITS ---
Discharge Providers Date of Admission: 08/24/20 15:08 Date of Discharge: August 28, 2020 Attending Provider at Admission: Katty Oquendo MD Attending Provider at Discharge: Marlon Castellon MD Primary Care Provider: Erik Adkins DO Diagnoses at Discharge Discharge Diagnosis (1) Hospice program care: Status: Acute Reason for Visit Reason for Visit: Hospice Respite Care Hospital Course Hospital Course Vladimir presented from home under hospice care for respite secondary to issues at home with eating and water. No events were noted at the hospital. He was discharged on the same medications he came in with and will resume his hospice care. Physical Exam Narrative: EXAM NARRATIVE: General no apparent distress Cardiovascular regular rate and rhythm Lungs clear Abdomen soft positive bowel sounds Extremities no cyanosis clubbing or edema Discharge Data Data Completed and Pending: Labs from last 24 hours 08/28/20 01:17 POC Glucose 146 H Vitals: Last Vital Signs Temp 98.6 F 08/27/20 15:26 Pulse 95 08/28/20 01:15 Resp 18 08/27/20 20:20 BP 118/68 08/28/20 01:15 Pulse Ox 96 08/28/20 01:15 Discharge Plan Discharge Patient Disposition: Hospice - Home Condition: Stable Prescriptions: Continued ipratropium-albuterol 0.5 mg-3 mg(2.5 mg base)/3 mL solution for nebulization 2.5 ml INHALATION Q4H PRN (Reason: Shortness Of Breath Or Wheezing) RF: 0 atorvastatin 40 mg Tablet 40 mg PO BEDTIME 30 Days Qty: 30 RF: 0 clopidogrel 75 mg Tablet 75 mg PO DAILY 30 Days Qty: 30 RF: 0 tamsulosin 0.4 mg Capsule 0.4 mg PO DAILY 30 Days Qty: 30 RF: 0 potassium chloride 20 mEq tablet,ER particles/crystals 20 meq PO DAILY 30 Days Qty: 30 RF: 0 pantoprazole [Protonix] 40 mg tablet,delayed release (DR/EC) 40 mg PO DAILY 30 Days Qty: 30 RF: 0 aspirin 81 mg Tablet,Delayed Release (Dr/Ec) 81 mg PO DAILY PRN (Reason: UNKNOWN) 30 Days Qty: 30 RF: 0 alprazolam [Xanax] 0.5 mg Tablet 0.5 mg PO Q6H PRN (Reason: Anxiety) 7 Days Qty: 28 RF: 0 metformin 500 mg tablet 500 mg PO BID Qty: 60 RF: 0 Lasix 20 mg tablet 40 mg PO DAILY RF: 0 metoprolol tartrate 25 mg tablet 12.5 mg PO BID RF: 0 sertraline 25 mg tablet 25 mg PO BEDTIME RF: 0 oxybutynin chloride 5 mg tablet 5 mg PO TID PRN (Reason: Bladder Spasms) RF: 0 ondansetron HCl 4 mg tablet 4 mg PO Q6H PRN (Reason: n/v) RF: 0 hydrocodone-acetaminophen 5-325 mg Tablet 1 tab PO Q6H PRN (Reason: Pain) Qty: 20 RF: 0 albuterol sulfate 2.5 mg /3 mL (0.083 %) Solution For Nebulization 2.5 mg INHALATION Q4H PRN (Reason: Shortness Of Breath) RF: 0 finasteride 5 mg Tablet 5 mg PO BEDTIME Qty: 30 RF: 0 gabapentin 100 mg Capsule 100 mg PO TID PRN (Reason: Pain) RF: 0 Discharge Orders: Discharge Order (Routine); Ordered 08/28/20 Ordered By: Marlon Castellon Referrals: Erik Adkins DO [Primary Care Provider] - 4-7 days Discharge Diet: Regular Activity Restrictions/Additional Instructions: Resume hospice care Discharge Attestations Time Spent in Discharge Care*: less than 30 min Status at Discharge: Cognitive status at discharge: cognitively intact , Behavioral status at discharge: cooperative , Quality Metrics Clinical Quality Measures During this hospital stay, did patient experience: None Coding Level of Care Code Acute Forklift Driver for Chg Fwd Diagnoses Hospice program care Z51.5
[2020-08-28 10:00] VITALS: BP 111/71; PULSE 109; RESP 22; TEMP 36.8; O2SAT 91
--- NOTE | 2020-08-28 10:16 | PC.CHAP ---
Pastoral Care Encounter/Spiritual Assessment Type of Contact [] Declined pipeline dispatcher visit [] Patient/Family/Request visit [] Outpatient visit [] Follow-up visit [] Physician referral [] Code/Alert [x] Routine visit [] Staff referral [] Actively dying [] Patient sleeping [] Family support [] [] Out of room [] Palliative care [] [] Receiving care in room [] Pre-surgical visit [] Trauma [] Long length of stay [] ICU visit [] Other: Relational/Emotional Strength [] Patient feels connected with others/family/visitors/staff [] Distress [] Loneliness/isolation [] Abandonment Spirituality of Patient [] Person of Rosio [] Attends Pentecostalism of their Rosio [] Believes in Prayer [] Reads Bible or Samaritan materials [] There are Spiritual issues to be addressed Embedded Systems Developer Interventions [x] Prayer [x] Active listening [x] Non-anxious presence [x] Spiritual/emotional support [] Crisis/trauma care [] Spiritual counseling [] Bereavement support [] Provided bereavement packet [] Provided Bible/devotional materials [] Provided toy/stuffed animal, coloring book to patient or family member [] Provided Communion [] Anointing/[place] [] Salvation [x] Completed spiritual assessment [] Other: Impact on Illness or Injury [] Angry [] Fearful [] Anxious [] Often cries [] Exhaustion [] Unable to work [] Unable to attend bahai [] Unable to walk/stand [] Unable to read [] Unable to drive [] Unable to eat/drink [] Unable to sleep [] Unable to be with family [] Patient intubated [] Other: Summary patient being moved today... still has confusion .. Time spent with patient 10 min
[2020-08-28 11:19] VITALS: BP 111/71; PULSE 109; RESP 22; TEMP 36.8; O2SAT 91
[2020-08-28] MEDS: ipratropium-albuterol 3 mL Neb 2.5 ML INHALATION (11:43)
[2020-08-28 11:45] VITALS: PULSE 84; RESP 18; O2SAT 96
[2020-08-28 11:49] VITALS: PULSE 83
--- NOTE | 2020-08-28 14:30 | PC.NURSE ---
Pt discharged home. Pt discharge instructions given along with prescriptions and follow up appointment. Pt had no c/o pain or discomfort at the time of discharge.
== END 2020-08-28 14:15 | disposition hospice, home (50) | DRG 951 ==
PROVIDERS: Admitting Provider Student in an Organized Health Care Education/Training Program; PCP Family Medicine; Visit Provider Internal Medicine
DX: Z51.5 Encounter for palliative care (principal); I13.0 Hypertensive heart and chronic kidney disease with heart failure and stage 1 through stage 4 chronic kidney disease, or unspecified chronic kidney disease; N13.8 Other obstructive and reflux uropathy; J44.9 Chronic obstructive pulmonary disease, unspecified; E11.22 Type 2 diabetes mellitus with diabetic chronic kidney disease; N18.30 Chronic kidney disease, stage 3 unspecified; I50.9 Heart failure, unspecified; Z96.0 Presence of urogenital implants; F41.9 Anxiety disorder, unspecified; I25.10 Atherosclerotic heart disease of native coronary artery without angina pectoris; I35.0 Nonrheumatic aortic (valve) stenosis; N40.1 Benign prostatic hyperplasia with lower urinary tract symptoms; Z87.440 Personal history of urinary (tract) infections; M48.061 Spinal stenosis, lumbar region without neurogenic claudication; G89.29 Other chronic pain; I48.0 Paroxysmal atrial fibrillation; Z79.02 Long term (current) use of antithrombotics/antiplatelets; Z79.82 Long term (current) use of aspirin; Z79.84 Long term (current) use of oral hypoglycemic drugs; Z79.891 Long term (current) use of opiate analgesic
CPT/HCPCS: 36416; 82962; 94640

== ENCOUNTER 2021-01-16 20:13 | Inpatient (IN) | payer MEDICARE, MEDICAID, SELFPAY ==
--- NOTE | 2021-01-16 20:19 | ECG_ITS ---
[facility] Test Date: 2021-01-16 Pat Name: Vladimir Farnsworth Department: Room: Gender: Male Executive Director Of Marketing: : 1940 Requested By: Jarrett Sadler Order Number: [id number] Maddie MD: Chuck Nunn M.D. Measurements Intervals [place] Rate: 115 P: 73 IN: 169 QRS: 125 QRSD: 100 T: 51 QT: 317 QTc: 440 Interpretive Statements SINUS TACHYCARDIA WITH FREQUENT SUPRAVENTRICULAR PREMATURE COMPLEXES INCOMPLETE RIGHT BUNDLE BRANCH BLOCK [90+ ms QRS DURATION, TERMINAL R IN V1/V2, 40+ ms S IN I/aVL/V4/V5/V6] POSSIBLE RIGHT VENTRICULAR HYPERTROPHY [SOME/ALL OF: PROMINENT R IN V1, LATE TRANSITION, RAD, MYKE, SSS] Compared to ECG 07/18/2020 02:57:29 Myocardial infarct finding no longer present Electronically Signed On 01-18-2021 17:16:05 CDT by Chuck Nunn M.D. [email or web address]
--- NOTE | 2021-01-16 20:19 | XRR_ITS ---
PROCEDURE INFORMATION: Exam: XR Chest Exam date and time: 01/16/2021 8:19 PM Age: 80 years old Clinical indication: Shortness of breath; Additional info: SOB TECHNIQUE: Imaging protocol: XR of the chest. Views: 1 view. Total images: 1 COMPARISON: CR XR chest 1V portable [id number] 07/17/2020 5:31 PM FINDINGS: Lungs: Poor inspiratory effort. No visible active interstitial or alveolar airspace disease. Chronic parenchymal scar right lung. Pleural spaces: No visible pleural effusion. No pneumothorax. Heart/Mediastinum: Cardiac structures and configuration with mild cardiomegaly and arteriosclerosis. Diaphragm: Chronic elevation right hemidiaphragm. Bones/joints: Unremarkable. Other findings: Patient rotated to the left. XR/XR chest 1V portable [id number] IMPRESSION: Nonacute.
[2021-01-16 20:20] VITALS: BP 109/79; PULSE 116; RESP 26; TEMP 37.9; O2SAT 97; BMI 34.9
--- NOTE | 2021-01-16 20:26 | W.ED.SOB ---
HPI - SOB/Dyspnea General: Chief Complaint: Shortness of Breath/Dyspnea Stated Complaint: septic eriteria Time Seen by Provider: 01/16/21 20:15 Source: patient and EMS Mode of arrival: EMS Limitations: no limitations History of Present Illness: HPI Narrative: 80-year-old male has a history of COPD along with CHF states he is having fever chills body aches cough and feeling weak today. EMS arrived and had to place him on a nonrebreather. Patient has had low-grade fevers. He is awake alert able answer all my questions appropriately here. Denies any vomiting diarrhea. Denies any sick contacts. He has not received his Covid vaccine. Associated symptoms: Reports fever(s); Deny abdominal pain, chest pain, nausea or vomiting Review of Systems Const: Reports: fever(s), chills and body aches Eyes: Denies: blurry vision or eye discomfort ENMT: Denies: throat pain or dental pain Card: Denies: chest pain Resp: Reports: dyspnea and non-productive cough GI: Denies: abdominal pain, nausea, vomiting or diarrhea : Denies: dysuria Musc: Denies: neck pain or back pain Skin/Breast: Denies: rash Neuro: Denies: headache(s) Psych: Denies: depression Rkiy/Lymph: Denies: easy bruising All/Imm: Denies: urticaria PFSH ED PFSH: Medical History Aortic stenosis, mild BPH with urinary obstruction CHF (congestive heart failure) Chronic indwelling Drake catheter Chronic kidney disease, stage 3 COPD (chronic obstructive pulmonary disease) COPD (chronic obstructive pulmonary disease) Diabetes mellitus, type II Erectile dysfunction History of ESBL E. coli infection urine, history of ESBL E. 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 Social History Smoking and tobacco status: never smoked Alcohol intake: never Marital status: / Current occupational status: retired and disabled Physical Exam Const: COMMON NORMALS: patient oriented x3 GENERAL APPEARANCE: ill appearing HENMT: COMMON NORMALS: normocephalic and atraumatic HEAD & SCALP: normocephalic and atraumatic Eye: COMMON NORMALS: Equal, round and reactive pupils present and EOMs intact bilaterally PUPIL: Yes Equal, round and reactive pupils present Neck/C-Spine: COMMON NORMALS: full ROM and supple Chest: COMMONS NORMALS: normal inspection of the chest and normal palpation of entire chest wall Resp: COMMON NORMALS: normal respiratory effort, No retractions and No use of accessory muscles AUSCULTATION: rales Cardio: COMMON NORMALS: regular rate, regular rhythm and No murmurs present (Cardio) RATE: regular rate RHYTHM: regular rhythm GI: COMMON NORMALS: Normal to inspection, nondistended, normoactive bowel sounds present, Soft to palpation, non-tender and no masses PALPATION: Yes Soft to palpation Extremity: COMMON NORMALS: normal to inspection and full ROM Neuro: COMMON NORMALS: patient oriented x3, moves all extremities and no focal motor deficits Psych: COMMON NORMALS: mental status grossly normal, Normal thought process present and cooperative THOUGHT PROCESS: Normal thought process present Skin: COMMON NORMALS: no rashes or lesions noted and no wounds GENERAL SKIN EXAM: no rashes or lesions noted Course Vital Signs: Vital signs: Vital Signs Temperature 100.3 F H 01/16/21 20:20 Pulse Rate 91 01/16/21 23:27 Respiratory Rate 22 H 01/16/21 23:27 Blood Pressure 99/58 01/16/21 23:27 Pulse Oximetry 92 01/16/21 23:27 MDM - SOB/Dyspnea MDM Narrative: Medical decision making narrative: Patient presents here with fever and sepsis. He does have a urinary tract infection. His heart rate and blood pressure is improved greatly with IV fluids. Patient also given IV antibiotics. I spoke to the hospitalist and will admit at this time. His Covid here was negative. Lab Data: Labs: Lab Results 01/16/21 01/16/21 01/16/21 Range/Units 20:35 20:35 20:35 WBC 17.2 H (4.0-10.0) 10^3/ uL RBC 5.38 H (4.1-5.3) 10^6/u L Hgb 13.2 (11.7-16.6) g/dL Hct 43.5 (42.0-52.0) % MCV 80.9 (80-94) fL MCH 24.5 L (28.0-34.0) pg MCHC 30.3 (30.0-36.0) g/dL RDW 17.6 H (12.1-15.1) % Plt Count 160 (130-400) 10^3/c mm MPV 10.0 (7.4-10.4) fL Neut % (Auto) 89.8 % Lymph % (Auto) 2.2 % [place] % (Auto) 6.6 % Eos % (Auto) 0.1 % Baso % (Auto) 0.3 % Neut # (Auto) 15.42 H (1.8-7.7) 10^3/u L Lymph # (Auto) 0.4 L (0.8-4.8) 10^3/u L [place] # (Auto) 1.1 H (0.2-0.9) 10^3/u L Eos # (Auto) 0.0 (0.0-0.8) 10^3/u L Baso # (Auto) 0.1 (0.0-0.1) 10^3/u L Nucleated RBC % (a uto) 0 % Nucleated RBCs # 0.0 /100WBC Specimen Type Sample Site ABG pH (7.35-7.45) ABG pCO2 (35-45) mmHg ABG pO2 (80.0-100.0) mmH g ABG HCO3 (22-26) mmol/L ABG Base Excess (-2.0-2.0) mmol/ L Shaun Test Hematocrit (42-52) % O2 Delivery Device O2 Liters/Min % Psychosocial Rehabilitation Counselor ID Sodium 136 (136-145) mmol/L Potassium 4.3 (3.5-5.1) mmol/L Chloride 89 L (98-107) mmol/L Carbon Dioxide 34 H (22-29) mmol/L Anion Gap 17.3 (5-19) BUN 32 H (8-23) mg/dL Creatinine 1.8 H (0.7-1.2) mg/dL GFR Calculation Not Reportable Glucose 236 H (65-115) mg/dL Calculated Osmolal ity 297 H (285-295) mOsm/k g Lactic Acid 2.4 H (0.5-2.2) mmol/L Lactic Acid (Sepsi s) (0.5-2.2) mmol/L Calcium 9.2 (8.5-10.5) mg/dL Total Bilirubin 0.4 (0.15-1.2) mg/dL AST 24 (0-40) U/L ALT 29 (0-41) U/L Alkaline Phosphata se 144 H (40-130) IU/L Troponin T Baselin e (0-15) ng/L C-Reactive Protein 164.9 H (0.0-4.9) mg/L NT-Pro-B Natriuret Pep 1336 H (0-450) pg/mL Total Protein 6.3 L (6.6-8.7) g/dL Albumin 3.7 (3.5-5.2) g/dL Globulin 2.6 (1.3-4.6) g/dL Urine Color (Yellow) Urine Appearance (CLEAR) Urine pH (5-7) Ur Specific Gravit y (1.005-1.030) Urine Protein (Negative) Urine Glucose (UA) (Normal) Urine Ketones (Negative) Urine Blood (Negative) Urine Nitrate (Negative) Urine Bilirubin (Negative) Urine Urobilinogen (Negative) mg/dL Ur Leukocyte Ladi ase (Negative) Urine RBC (0-2) /hpf Urine WBC (0-5) /hpf Ur Squamous Epith Cells (0-5) /hpf Amorphous Sediment /hpf Urine Bacteria (NONE) /hpf SARS-CoV-2 Ag (Rap id) (Negative) 01/16/21 01/16/21 01/16/21 Range/Units 20:35 20:48 21:16 WBC (4.0-10.0) 10^3/ uL RBC (4.1-5.3) 10^6/u L Hgb (11.7-16.6) g/dL Hct (42.0-52.0) % MCV (80-94) fL MCH (28.0-34.0) pg MCHC (30.0-36.0) g/dL RDW (12.1-15.1) % Plt Count (130-400) 10^3/c mm MPV (7.4-10.4) fL Neut % (Auto) % Lymph % (Auto) % [place] % (Auto) % Eos % (Auto) % Baso % (Auto) % Neut # (Auto) (1.8-7.7) 10^3/u L Lymph # (Auto) (0.8-4.8) 10^3/u L [place] # (Auto) (0.2-0.9) 10^3/u L Eos # (Auto) (0.0-0.8) 10^3/u L Baso # (Auto) (0.0-0.1) 10^3/u L Nucleated RBC % (a uto) % Nucleated RBCs # /100WBC Specimen Type Arterial Sample Site Radial, left ABG pH 7.43 (7.35-7.45) ABG pCO2 53.6 H (35-45) mmHg ABG pO2 243.0 H (80.0-100.0) mmH g ABG HCO3 35.5 H (22-26) mmol/L ABG Base Excess 9.6 H (-2.0-2.0) mmol/ L Shaun Test Pos Hematocrit 34.8 L (42-52) % O2 Delivery Device Nrb O2 Liters/Min 15.0 % Psychosocial Rehabilitation Counselor ID Harkr Sodium (136-145) mmol/L Potassium (3.5-5.1) mmol/L Chloride (98-107) mmol/L Carbon Dioxide (22-29) mmol/L Anion Gap (5-19) BUN (8-23) mg/dL Creatinine (0.7-1.2) mg/dL GFR Calculation Glucose (65-115) mg/dL Calculated Osmolal ity (285-295) mOsm/k g Lactic Acid (0.5-2.2) mmol/L Lactic Acid (Sepsi s) (0.5-2.2) mmol/L Calcium (8.5-10.5) mg/dL Total Bilirubin (0.15-1.2) mg/dL AST (0-40) U/L ALT (0-41) U/L Alkaline Phosphata se (40-130) IU/L Troponin T Baselin e 108 H* (0-15) ng/L C-Reactive Protein (0.0-4.9) mg/L NT-Pro-B Natriuret Pep (0-450) pg/mL Total Protein (6.6-8.7) g/dL Albumin (3.5-5.2) g/dL Globulin (1.3-4.6) g/dL Urine Color (Yellow) Urine Appearance (CLEAR) Urine pH (5-7) Ur Specific Gravit y (1.005-1.030) Urine Protein (Negative) Urine Glucose (UA) (Normal) Urine Ketones (Negative) Urine Blood (Negative) Urine Nitrate (Negative) Urine Bilirubin (Negative) Urine Urobilinogen (Negative) mg/dL Ur Leukocyte Ladi ase (Negative) Urine RBC (0-2) /hpf Urine WBC (0-5) /hpf Ur Squamous Epith Cells (0-5) /hpf Amorphous Sediment /hpf Urine Bacteria (NONE) /hpf SARS-CoV-2 Ag (Rap id) Negative (Negative) 01/16/21 01/16/21 Range/Units 21:50 23:14 WBC (4.0-10.0) 10^3/ uL RBC (4.1-5.3) 10^6/u L Hgb (11.7-16.6) g/dL Hct (42.0-52.0) % MCV (80-94) fL MCH (28.0-34.0) pg MCHC (30.0-36.0) g/dL RDW (12.1-15.1) % Plt Count (130-400) 10^3/c mm MPV (7.4-10.4) fL Neut % (Auto) % Lymph % (Auto) % [place] % (Auto) % Eos % (Auto) % Baso % (Auto) % Neut # (Auto) (1.8-7.7) 10^3/u L Lymph # (Auto) (0.8-4.8) 10^3/u L [place] # (Auto) (0.2-0.9) 10^3/u L Eos # (Auto) (0.0-0.8) 10^3/u L Baso # (Auto) (0.0-0.1) 10^3/u L Nucleated RBC % (a uto) % Nucleated RBCs # /100WBC Specimen Type Sample Site ABG pH (7.35-7.45) ABG pCO2 (35-45) mmHg ABG pO2 (80.0-100.0) mmH g ABG HCO3 (22-26) mmol/L ABG Base Excess (-2.0-2.0) mmol/ L Shaun Test Hematocrit (42-52) % O2 Delivery Device O2 Liters/Min % Psychosocial Rehabilitation Counselor ID Sodium (136-145) mmol/L Potassium (3.5-5.1) mmol/L Chloride (98-107) mmol/L Carbon Dioxide (22-29) mmol/L Anion Gap (5-19) BUN (8-23) mg/dL Creatinine (0.7-1.2) mg/dL GFR Calculation Glucose (65-115) mg/dL Calculated Osmolal ity (285-295) mOsm/k g Lactic Acid (0.5-2.2) mmol/L Lactic Acid (Sepsi s) 1.3 (0.5-2.2) mmol/L Calcium (8.5-10.5) mg/dL Total Bilirubin (0.15-1.2) mg/dL AST (0-40) U/L ALT (0-41) U/L Alkaline Phosphata se (40-130) IU/L Troponin T Baselin e (0-15) ng/L C-Reactive Protein (0.0-4.9) mg/L NT-Pro-B Natriuret Pep (0-450) pg/mL Total Protein (6.6-8.7) g/dL Albumin (3.5-5.2) g/dL Globulin (1.3-4.6) g/dL Urine Color Yellow (Yellow) Urine Appearance Cloudy (CLEAR) Urine pH 5 (5-7) Ur Specific Gravit y 1.015 (1.005-1.030) Urine Protein 1+ H (Negative) Urine Glucose (UA) Norm (Normal) Urine Ketones Negative (Negative) Urine Blood 3+ H (Negative) Urine Nitrate Negative (Negative) Urine Bilirubin 1+ H (Negative) Urine Urobilinogen Norm (Negative) mg/dL Ur Leukocyte Ladi ase 2+ H (Negative) Urine RBC 5-10 H (0-2) /hpf Urine WBC Too numerous to c nt H (0-5) /hpf Ur Squamous Epith Cells 5-10 H (0-5) /hpf Amorphous Sediment 4+ /hpf Urine Bacteria 4+ H (NONE) /hpf SARS-CoV-2 Ag (Rap id) (Negative) Imaging Data^: CXR: Attestation: I personally reviewed and interpreted this imaging study as follows: Radiologist's impression: [address] [address] XRay Report Signed Patient: Vladimir Farnsworth Unit #: [id number] : 1940 Age/Sex: 80 / M ADM Date: 01/16/21 Loc: ER Room/Bed: Attending Dr: Ordering Provider/Ordering MD: Jarrett Sadler MD Date of Service: 01/16/21 Procedure(s): XR chest 1V portable [id number] Accession Number(s): [id number] Report Number: [id number] PROCEDURE INFORMATION: Exam: XR Chest Exam date and time: 01/16/2021 8:19 PM Age: 80 years old Clinical indication: Shortness of breath; Additional info: SOB TECHNIQUE: Imaging protocol: XR of the chest. Views: 1 view. Total images: 1 COMPARISON: CR XR chest 1V portable [id number] 07/17/2020 5:31 PM FINDINGS: Lungs: Poor inspiratory effort. No visible active interstitial or alveolar airspace disease. Chronic parenchymal scar right lung. Pleural spaces: No visible pleural effusion. No pneumothorax. Heart/Mediastinum: Cardiac structures and configuration with mild cardiomegaly and arteriosclerosis. Diaphragm: Chronic elevation right hemidiaphragm. Bones/joints: Unremarkable. Other findings: Patient rotated to the left. XR/XR chest 1V portable [id number] IMPRESSION: Nonacute. EKG Data^: EKG 1: EKG Interpretation Date: 01/16/21 EKG interpretation time: 20:38 Interpretation: sinus tach hr [address] or t wave abnormalities qrs 100 qtc 385 EKG 2: EKG Interpretation Date: 01/16/21 EKG interpretation time: 22:23 Interpretation: nsr hr [address] or t wave abnormalities qrs 88 qtc 377 Discharge Plan Discharge Prescriptions: No Action ipratropium-albuterol 0.5 mg-3 mg(2.5 mg base)/3 mL solution for nebulization 2.5 ml INHALATION Q4H PRN (Reason: Shortness Of Breath Or Wheezing) RF: 0 aspirin 81 mg Tablet,Delayed Release (Dr/Ec) 81 mg PO DAILY PRN (Reason: UNKNOWN) 30 Days Qty: 30 RF: 0 alprazolam [Xanax] 0.5 mg Tablet 0.5 mg PO Q6H PRN (Reason: Anxiety) 7 Days Qty: 28 RF: 0 metformin 500 mg tablet 500 mg PO BID Qty: 60 RF: 0 Lasix 20 mg tablet 40 mg PO DAILY RF: 0 metoprolol tartrate 25 mg tablet 12.5 mg PO BID RF: 0 sertraline 25 mg tablet 25 mg PO BEDTIME RF: 0 oxybutynin chloride 5 mg tablet 5 mg PO TID PRN (Reason: Bladder Spasms) RF: 0 ondansetron HCl 4 mg tablet 4 mg PO Q6H PRN (Reason: n/v) RF: 0 hydrocodone-acetaminophen 5-325 mg Tablet 1 tab PO Q6H PRN (Reason: Pain) Qty: 20 RF: 0 albuterol sulfate 2.5 mg /3 mL (0.083 %) Solution For Nebulization 2.5 mg INHALATION Q4H PRN (Reason: Shortness Of Breath) RF: 0 finasteride 5 mg Tablet 5 mg PO BEDTIME Qty: 30 RF: 0 gabapentin 100 mg Capsule 100 mg PO TID PRN (Reason: Pain) RF: 0 Coding Level of Care Code ED Anesthesiologist/Physician for g Fwd Exam Comprehensive
[2021-01-16 20:39] LABS: Basophils # 0.1 10^3/uL (0.0-0.1); Basophils % 0.3 %; Eosinophils % 0.1 %; Hematocrit 43.5 % (42.0-52.0); Hemoglobin 13.2 g/dL (11.7-16.6); Lymphocytes # 0.4 10^3/uL (0.8-4.8); Lymphocytes % 2.2 %; Mean Corpuscular HGB Conc 30.3 g/dL (30.0-36.0); Mean Corpuscular Hemoglobin 24.5 pg (28.0-34.0); Mean Corpuscular Volume 80.9 fL (80-94); Monocytes # 1.1 10^3/uL (0.2-0.9); Monocytes % 6.6 %; Neutrophils # 15.42 10^3/uL (1.8-7.7); Neutrophils % 89.8 %; Nucleated Red Blood Cells % 0 %; Platelet Count 160 10^3/cmm (130-400); Red Blood Count 5.38 10^6/uL (4.1-5.3); Red Cell Distribution Width 17.6 % (12.1-15.1); White Blood Count 17.2 10^3/uL (4.0-10.0)
[2021-01-16 21:05] LABS: Lactic Sepsis W/Reflex 2.4 mmol/L (0.5-2.2)
[2021-01-16 21:11] LABS: Troponin(5th) Baseline 108 ng/L (0-15)
[2021-01-16 21:15] LABS: Alanine Aminotransferase 29 U/L (0-41); Albumin Level 3.7 g/dL (3.5-5.2); Alkaline Phosphatase 144 IU/L (40-130); Anion Gap 17.3 (5-19); Aspartate Amino Transferase 24 U/L (0-40); Blood Urea Nitrogen 32 mg/dL (8-23); C Reactive Protein 164.9 mg/L (0.0-4.9); Calcium 9.2 mg/dL (8.5-10.5); Carbon Dioxide 34 mmol/L (22-29); Chloride 89 mmol/L (98-107); Globulin 2.6 g/dL (1.3-4.6); Glucose 236 mg/dL (65-115); NT Pro B Type Natriuretic Pept 1336 pg/mL (0-450); Osmolality Calculated 297 mOsm/kg (285-295); Potassium 4.3 mmol/L (3.5-5.1); Sodium 136 mmol/L (136-145); Total Bilirubin 0.4 mg/dL (0.15-1.2); Total Protein 6.3 g/dL (6.6-8.7)
[2021-01-16 21:27] LABS: ABG PCO2 53.6 mmHg (35-45); ABG PH Result 7.43 (7.35-7.45); Arterial Blood Gas Hematocrit 34.8 % (42-52); Base Excess ABG 9.6 mmol/L (-2.0-2.0); Blood Gas Allen Test Pos; Blood Gas Operator Identificat HARKR; Blood Gas Sample Site Radial, left; Blood Gas Sample Type Arterial; HCO3 ABG 35.5 mmol/L (22-26); Oxygen Device NRB
[2021-01-16 21:37] LABS: SARS Covid-2 Antigen Negative (Negative)
[2021-01-16 21:39] VITALS: BP 99/59; PULSE 108; RESP 16; O2SAT 99
[2021-01-16 22:05] LABS: Add Urine Microscopic? YES; Bilirubin Urine 1+ (Negative); Blood Urine 3+ (Negative); Glucose Urine UA Norm (Normal); Ketones Urine Negative (Negative); Leukocyte Esterase Urine 2+ (Negative); Nitrate Urine Negative (Negative); Protein Urine 1+ (Negative); Specific Gravity, Urine 1.015 (1.005-1.030); Urine Appearance Cloudy (CLEAR); Urine Color Yellow (Yellow); Urobilinogen Urine Norm (Negative); WBC Urine TOO NUMEROUS TO CNT /hpf (0-5); pH Urine 5 (5-7)
[2021-01-16 22:06] LABS: Add Urine Culture? Yes; Amorphous Sediment Urine 4+ /hpf; Bacteria Urine 4+ /hpf
--- NOTE | 2021-01-16 22:19 | ECG_ITS ---
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 Measurements Intervals [place] Rate: 98 P: 70 CT: 156 QRS: 129 QRSD: 88 T: 40 QT: 322 QTc: 412 Interpretive Statements SINUS RHYTHM WITH OCCASIONAL SUPRAVENTRICULAR PREMATURE COMPLEXES POSSIBLE RIGHT VENTRICULAR HYPERTROPHY [SOME/ALL OF: PROMINENT R IN V1, LATE TRANSITION, RAD, MYKE, SSS] Compared to ECG 01/16/2021 20:38:42 Sinus tachycardia no longer present Incomplete right bundle-branch block no longer present Electronically Signed On 01-18-2021 17:23:40 CDT by Chuck Nunn M.D. [id number]
[2021-01-16 22:25] LABS: Reflex Lactate Order REFLEX LACTIC ORDERD
[2021-01-16 22:29] VITALS: BP 102/61; PULSE 96; RESP 18; O2SAT 97
[2021-01-16] MEDS: piperacillin-tazobactam 3.375 GM in sodium chloride 0.9% (plus) 50 ML IV (22:30)
[2021-01-16 23:27] VITALS: BP 99/58; PULSE 91; RESP 22; O2SAT 92
[2021-01-16] MEDS: vancomycin 1,000 MG in sodium chloride 0.9% 250 ML 250 MG IV (23:28)
[2021-01-16 23:45] LABS: Lactic Acid level (Lactate) 1.3 mmol/L (0.5-2.2)
--- NOTE | 2021-01-16 23:56 | PM.HP ---
Providers/Chief Complaint Admitting Physician: Maia Barrera MD Primary Care Provider: Dr. Cerrato Chief Complaint: Not doing good History of Present Illness Vladimir Farnsworth is a 80 year old male who is on hospice who presented via EMS for increasing difficulty breathing, fever and general malaise. He was put on a nonrebreather in route. He tells me that his blood pressure has been high and his breathing has been worse. He has had generalized aches and pains. Denies any nausea, vomiting or diarrhea. He does have a chronic indwelling Drake catheter. As his nurse made him come in. Past medical history as noted below includes aortic stenosis, CHF, chronic kidney disease, COPD and recurrent urinary tract infections among other diagnoses listed below. He cannot tell me exactly when he started feeling bad but knows that yesterday was worse. Work-up in the emergency room revealed elevated white count, elevated troponin a bit above baseline but without a significant delta, significant elevation in CRP compared to prior values, elevated BNP and an abnormal urinalysis. He received aspirin and Zosyn and request was made for admission. Rapid Covid test was negative. Sugar was 100.3 in the ER. Review of Systems Const: Reports: fever(s) and chills Eyes: Reports: blurry vision ENMT: Denies: throat pain or nasal congestion Card: Reports: edema; Denies: chest pain or palpitations Resp: Reports: dyspnea and non-productive cough; Denies: productive cough GI: Denies: abdominal pain, nausea, vomiting, diarrhea or constipation : Reports: other (Chronic Drake, due to be changed Tuesday) Musc: Reports: back pain, extremity pain and muscle weakness Skin/Breast: Denies: rash, pruritus or sores Neuro: Reports: weakness in extremities (Not new) and difficulty walking (Not new); Denies: headache(s) or numbness in extremities Psych: Denies: anxiety or depression Riky/Lymph: Denies: easy bruising or easy bleeding Medications/Allergies Home Medications Medication Instructions Recorded Confirmed Last Taken Type ipratropium-albuterol 2.5 ml INHALATION Q4H PRN 11/03/19 08/24/20 04/01/20 History oxybutynin chloride 5 mg PO TID PRN 02/21/20 08/24/20 03/31/20 History sertraline 25 mg PO BEDTIME 02/21/20 08/24/20 03/31/20 History ondansetron HCl 4 mg PO Q6H PRN 04/01/20 08/24/20 03/31/20 History hydrocodone-acetaminophen 1 tab PO Q6H PRN #20 tab 04/05/20 08/24/20 Unknown Rx albuterol sulfate 2.5 mg INHALATION Q4H PRN 05/26/20 08/24/20 Unknown History finasteride 5 mg PO BEDTIME #30 tab 05/31/20 08/24/20 Unknown Rx gabapentin 100 mg PO TID PRN 06/02/20 08/24/20 Unknown History alprazolam [Xanax] 0.5 mg PO Q6H PRN 7 Days #28 tab 07/27/20 08/24/20 Unknown Rx aspirin 81 mg PO DAILY PRN 30 Days #30 tab 07/27/20 08/24/20 Unknown Rx metformin 500 mg PO BID #60 tab 07/28/20 08/24/20 Unknown Rx Lasix 40 mg PO DAILY 08/24/20 08/24/20 Unknown History metoprolol tartrate 12.5 mg PO BID 08/24/20 08/24/20 Unknown History Allergies Allergy/AdvReac Type Severity Reaction Status Date / Time No Known Allergies Allergy Verified 07/29/20 16:09 PFSH Acute PFSH: Medical History (Updated 01/17/21 @ 06:29 by Maia Barrera MD) Aortic stenosis, mild BPH with urinary obstruction CHF (congestive heart failure) Chronic indwelling Drake catheter Chronic kidney disease, stage 3 COPD (chronic obstructive pulmonary disease) COPD (chronic obstructive pulmonary disease) Diabetes mellitus, type II Erectile dysfunction History of ESBL E. coli infection urine, history of ESBL E. 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 Social History Smoking and tobacco status: never smoked Alcohol intake: never Marital status: / Current occupational status: retired and disabled Vitals/I&O/Wt Last Vital Signs Temp 100.3 F H 01/16/21 20:20 Pulse 91 01/16/21 23:27 Resp 22 H 01/16/21 23:27 BP 99/58 01/16/21 23:27 Pulse Ox 92 01/16/21 23:27 01/16/21 01/16/21 01/17/21 14:59 22:59 06:59 Intake Total 50 / 50 Balance 50 / 50 Weight last 48 hrs Weight 104.326 kg Physical Exam Narrative: EXAM NARRATIVE: Constitutional: Patient is awake and alert, chronically ill-appearing, looks like he does not feel well HEENT: Edematous face, crusting in the medial canthus on the right, swelling of the eyelids left greater than right, oropharynx with moist mucous membranes Neck: Supple Respiratory: Bibasilar rales, scattered wheeze Cardiovascular: Tachycardic but regular, distant heart sounds Abdomen: Soft, nontender, doughy, positive bowel sounds : Chronic Drake in place with cloudy urine Extremities: Pitting edema bilaterally, left lower extremity larger in diameter than right lower extremity and calf tenderness noted, capillary refill normal Skin: Pale, dry, dressings over wounds to right arm and left hand, scattered ecchymosis to upper extremities, chronic sun exposure changes Neuro: Face is symmetric, speech clear, handgrip equal Psych: Normal affect, reflective currently of where he is at in his life and the challenges, seeking comfort and reassurance Data : 01/16/21 20:35 01/16/21 20:35 A&P Assessment and plan (1) CHF exacerbation: With hypoxemia, increased oxygen need from baseline Status: Resolved Qualifiers: Heart failure type: diastolic Qualified Code(s): I50.33 - Acute on chronic diastolic (congestive) heart failure (2) Urinary tract infection: In a patient with a history of ESBL E. coli Status: Acute Qualifiers: Encounter type: initial encounter Indwelling urinary catheter type: indwelling urethral catheter Urinary tract infection type: catheter-associated UTI Qualified Code(s): T83.511A - Infection and inflammatory reaction due to indwelling urethral catheter, initial encounter; N39.0 - Urinary tract infection, site not specified (3) Chronic indwelling Drake catheter: Status: Chronic (4) Edema of left lower extremity: With some calf pain Status: Acute (5) COPD (chronic obstructive pulmonary disease): Currently does not appear to be acutely exacerbated but within differential Status: Chronic Qualifiers: COPD type: unspecified COPD Qualified Code(s): J44.9 - Chronic obstructive pulmonary disease, unspecified (6) Diabetes mellitus, type II: [id number] Status: Chronic Qualifiers: Chronic kidney disease stage: stage 3 (moderate) Diabetes mellitus complication detail: with chronic kidney disease Diabetes mellitus complication status: with kidney complications Diabetes mellitus tank terminal gauger insulin use: without tank terminal gauger use Qualified Code(s): E11.22 - Type 2 diabetes mellitus with diabetic chronic kidney disease; N18.3 - Chronic kidney disease, stage 3 (moderate) (7) Hypertension: Status: Chronic Qualifiers: Hypertension type: essential hypertension Qualified Code(s): I10 - Essential (primary) hypertension (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 coli Gentle diuresis Venous ultrasound of the left lower extremity Change Drake catheter Clarify and address home medications accordingly Sliding scale insulin for diabetes Continue home beta-blockade Continue home pain medications Continue home urinary medications Breathing treatments as needed Supportive care otherwise Heparin for DVT prophylaxis Anticipate discharge back home probably with hospice care after treatment for acute infection Allow natural as per his wishes Attestations Medical Necessity Statement*: Anticipated stay greater than two midnights in this gentleman with chronic indwelling Drake catheter, ESBL E. coli history, abnormal urinalysis, elevated white count fever suggestive of acute urinary tract infection, peripheral edema and increased difficulty breathing consistent with acute CHF. Receiving diuresis, IV antibiotics and other care as described. Coding Level of Care Code Acute Peat Shredder Tender for Chg Fwd Diagnoses CHF exacerbation I50.33 Heart failure type: diastolic Urinary tract infection T83.511A; N39.0 Encounter type: initial encounter Indwelling urinary catheter type: indwelling urethral catheter Urinary tract infection type: catheter-associated UTI Chronic indwelling Drake catheter Z96.0 Edema of left lower extremity R60.0 COPD (chronic obstructive pulmonary disease) J44.9 COPD type: unspecified COPD Diabetes mellitus, type II E11.22; N18.3 Chronic kidney disease stage: stage 3 (moderate) Diabetes mellitus complication detail: with chronic kidney disease Diabetes mellitus complication status: with kidney complications Diabetes mellitus chcf insulin use: without tank terminal gauger use Hypertension I10 Hypertension type: essential hypertension BPH with urinary obstruction N40.1; N13.8 Aortic stenosis, mild I35.0 Chronic kidney disease, stage 3 N18.32 Chronic kidney disease stage 3 subtype: stage 3b (GFR 30-44) Osteoarthritis M15.9 Osteoarthritis location: multiple joints Osteoarthritis type: unspecified Hospice program care Z51.5
[2021-01-17] VITALS (14 sets, daily range): BP systolic 105–148; BP diastolic 52–84; PULSE 72–104; RESP 14–24; TEMP 36.6–37.2; O2SAT 92–98
[2021-01-17 00:52] LABS: Troponin(5th) Baseline 97 ng/L (0-15)
[2021-01-17 00:54] LABS: Lactate (Lactic Acid level) 1.3 mmol/L (0.5-2.2)
--- NOTE | 2021-01-17 02:19 | ECG_ITS ---
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 Measurements Intervals [place] Rate: 87 P: 62 GA: 161 QRS: 117 QRSD: 91 T: 40 QT: 336 QTc: 405 Interpretive Statements SINUS RHYTHM POSSIBLE RIGHT VENTRICULAR HYPERTROPHY [SOME/ALL OF: PROMINENT R IN V1, LATE TRANSITION, RAD, MYKE, SSS] Compared to ECG 01/16/2021 22:23:05 No significant changes Electronically Signed On 01-18-2021 17:23:31 CDT by Chuck Nunn M.D. [id number]
[2021-01-17] MEDS: HYDROcodone-acetaminophen 5-325 mg Tablet 1 TAB PO ×3 (03:24→18:45)
--- NOTE | 2021-01-17 05:15 | PC.PHAR ---
Vancomycin is dosed at 1gm IVPB every 24 hours to produce a predicted trough level of 13.24 (population based pharmacokinetic analysis). A trough level has been ordered from the lab to be obtained before the fourth dose to confirm and adjust if needed.
[2021-01-17] MEDS: heparin 5,000 unit/mL INJ 1 mL 5000 UNIT SUBCUT ×2 (05:52→17:52)
--- NOTE | 2021-01-17 06:34 | USR_ITS ---
PROCEDURE INFORMATION: Exam: US Duplex Left Lower Extremity Veins, Limited Exam date and time: 01/17/2021 6:34 AM Age: 80 years old Clinical indication: Pain; Leg, lower; Left; Additional info: Edema, calf pain, increased oxygen need TECHNIQUE: Imaging protocol: Real-time Duplex ultrasound of the Left Lower Extremity with 2-D winchester scale, color Doppler flow and spectral waveform analysis with image documentation. Limited exam focused on the left lower extremity veins. COMPARISON: US Renal Kidney Structu* [id number] 01/04/2019 3:04 PM FINDINGS: Left deep veins: Unremarkable. The common femoral, femoral, proximal profunda femoral and popliteal veins are patent without thrombus. Normal Doppler waveforms. Normal compressibility and/or augmentation response. Left superficial veins: Unremarkable. Saphenofemoral junction is patent without thrombus. Soft tissues: Unremarkable. US/CV venous duplex [facility] [id number] IMPRESSION: No evidence of deep vein thrombosis.
[2021-01-17 07:26] LABS: Troponin 5 6HR Delta 3.1 ng/L (0-12)
[2021-01-17 07:44] LABS: Troponin 5 6HR 100.1 ng/L (0-15)
[2021-01-17] MEDS: FUROsemide 10 mg/mL SDV 10mL 60 MG IVP (07:51)
[2021-01-17] MEDS: acetaminophen 325 mg Tablet 650 MG PO (07:52)
[2021-01-17] MEDS: ondansetron 2 mg/ML SDV 2 mL 4 MG IVP ×2 (09:37→16:05)
--- NOTE | 2021-01-17 10:28 | PC.PHAR ---
pt unable to verify medications-pts daughter ruthie states the pt takes the medications entered
[2021-01-17] MEDS: aspirin 81 mg Chew Tablet PO (10:40)
[2021-01-17] MEDS: potassium chloride ER 20 mEq Tablet PO (10:40)
[2021-01-17] MEDS: metoprolol tartrate 25 mg Tablet 12.5 MG PO ×2 (10:41→21:42)
[2021-01-17 12:24] LABS: Glucose Point of Care 163 mg/dL (70-110)
--- NOTE | 2021-01-17 15:33 | PM.PN ---
Vitals/I&O/Wt Last Vital Signs Temp 98.2 F 01/17/21 12:00 Pulse 88 01/17/21 12:00 Resp 22 H 01/17/21 12:00 BP 129/70 01/17/21 12:00 Pulse Ox 98 01/17/21 12:00 01/17/21 01/17/21 01/17/21 06:59 14:59 22:59 Intake Total 300 / 300 800 / 800 Output Total 1400 / 1400 Balance 300 / 300 -600 / -600 Weight last 48 hrs Weight 104.326 kg Physical Exam Urinary Catheter Management^: Drake: Cath Placed During This Visit: yes Urinary Catheter Date of Insertion: 01/17/21 Urinary Catheter Time of Insertion: 15:10 Data : 01/16/21 20:35 01/16/21 20:35 Micro: Microbiology 01/17/21 02:30 Blood Culture - Preliminary Blood SPECIMEN COLLECTED 01/17/21 00:23 Blood Culture - Preliminary Blood SPECIMEN COLLECTED A&P Assessment and plan (1) CHF exacerbation: Decompensated heart failure with ejection fraction: Monitor intake output Daily weight k>4, Mg>2 Lasix 60 IV daily Fluid restriction 1500 cc Status: Resolved Qualifiers: Heart failure type: diastolic Qualified Code(s): I50.33 - Acute on chronic diastolic (congestive) heart failure (2) Urinary tract infection: Has history of ESBL E. coli. Follow urine culture Continue Primaxin Need Drake catheter change. Status: Acute Qualifiers: Urinary tract infection type: catheter-associated UTI Indwelling urinary catheter type: indwelling urethral catheter Encounter type: initial encounter Qualified Code(s): T83.511A - Infection and inflammatory reaction due to indwelling urethral catheter, initial encounter; N39.0 - Urinary tract infection, site not specified (3) Chronic indwelling Drake catheter: Status: Chronic (4) Edema of left lower extremity: With some calf pain. Bilateral lower extremity Doppler vein: Negative for DVT Status: Acute (5) COPD (chronic obstructive pulmonary disease): Currently does not appear to be acutely exacerbated but within differential Status: Chronic Qualifiers: COPD type: unspecified COPD Qualified Code(s): J44.9 - Chronic obstructive pulmonary disease, unspecified (6) Diabetes mellitus, type II: [id number] Status: Chronic Qualifiers: Diabetes mellitus termite control service representative insulin use: without termite control service representative use Diabetes mellitus complication status: with kidney complications Diabetes mellitus complication detail: with chronic kidney disease Chronic kidney disease stage: stage 3 (moderate) Qualified Code(s): E11.22 - Type 2 diabetes mellitus with diabetic chronic kidney disease; N18.3 - Chronic kidney disease, stage 3 (moderate) (7) Hypertension: Status: Chronic Qualifiers: Hypertension type: essential hypertension Qualified Code(s): I10 - Essential (primary) hypertension (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 coli Gentle diuresis Venous ultrasound of the left lower extremity Change Drake catheter Clarify and address home medications accordingly Sliding scale insulin for diabetes Continue home beta-blockade Continue home pain medications Continue home urinary medications Breathing treatments as needed Supportive care otherwise Heparin for DVT prophylaxis Anticipate discharge back home probably with hospice care after treatment for acute infection Allow natural as per his wishes Attestations Medical Necessity Statement*: Patient needs to be in the hospital for management of decompensated heart failure and UTI Coding Level of Care Code Acute Bagging Machine Operator for [facility] Fwd Diagnoses CHF exacerbation I50.33 Heart failure type: diastolic Urinary tract infection T83.511A; N39.0 Urinary tract infection type: catheter-associated UTI Indwelling urinary catheter type: indwelling urethral catheter Encounter type: initial encounter Chronic indwelling Drake catheter Z96.0 Edema of left lower extremity R60.0 COPD (chronic obstructive pulmonary disease) J44.9 COPD type: unspecified COPD Diabetes mellitus, type II E11.22; N18.3 Diabetes mellitus intermediate insulin use: without termite control service representative use Diabetes mellitus complication status: with kidney complications Diabetes mellitus complication detail: with chronic kidney disease Chronic kidney disease stage: stage 3 (moderate) Hypertension I10 Hypertension type: essential hypertension BPH with urinary obstruction N40.1; N13.8 Aortic stenosis, mild I35.0 Chronic kidney disease, stage 3 N18.32 Chronic kidney disease stage 3 subtype: stage 3b (GFR 30-44) Osteoarthritis M15.9 Osteoarthritis location: multiple joints Osteoarthritis type: unspecified Hospice program care Z51.5
[2021-01-17] MEDS: ipratropium-albuterol 3 mL Neb INHALATION ×2 (15:44→20:19)
[2021-01-17 17:15] LABS: Glucose Point of Care 177 mg/dL (70-110)
[2021-01-17 21:29] LABS: Glucose Point of Care 120 mg/dL (70-110)
[2021-01-17] MEDS: vancomycin 1,000 MG in sodium chloride 0.9% 250 ML 250 MG IV (23:59)
[2021-01-18] VITALS (13 sets, daily range): BP systolic 96–145; BP diastolic 63–80; PULSE 65–92; RESP 18–26; TEMP 36.2–37.1; O2SAT 92–99
[2021-01-18] MEDS: heparin 5,000 unit/mL INJ 1 mL 5000 UNIT SUBCUT ×2 (04:53→17:08)
[2021-01-18 06:42] LABS: Basophils % 0.3 %; Eosinophils % 0.3 %; Hemoglobin 9.6 g/dL (11.7-16.6); Lymphocytes # 0.9 10^3/uL (0.8-4.8); Lymphocytes % 7.1 %; Mean Corpuscular HGB Conc 29.1 g/dL (30.0-36.0); Mean Corpuscular Hemoglobin 24.2 pg (28.0-34.0); Mean Corpuscular Volume 83.1 fL (80-94); Mean Platelet Volume 10.7 fL (7.4-10.4); Monocytes # 1.4 10^3/uL (0.2-0.9); Monocytes % 10.7 %; Neutrophils # 10.19 10^3/uL (1.8-7.7); Neutrophils % 80.8 %; Nucleated Red Blood Cells % 0 %; Platelet Count 136 10^3/cmm (130-400); Red Blood Count 3.97 10^6/uL (4.1-5.3); Red Cell Distribution Width 17.3 % (12.1-15.1); White Blood Count 12.6 10^3/uL (4.0-10.0)
[2021-01-18 07:01] LABS: Glucose Point of Care 166 mg/dL (70-110)
[2021-01-18 07:03] LABS: Alanine Aminotransferase 27 U/L (0-41); Albumin Level 2.6 g/dL (3.5-5.2); Alkaline Phosphatase 169 IU/L (40-130); Anion Gap 11.8 (5-19); Aspartate Amino Transferase 33 U/L (0-40); Blood Urea Nitrogen 33 mg/dL (8-23); Calcium 8.2 mg/dL (8.5-10.5); Carbon Dioxide 33 mmol/L (22-29); Chloride 94 mmol/L (98-107); Globulin 2.5 g/dL (1.3-4.6); Glucose 174 mg/dL (65-115); Magnesium 1.4 mg/dL (1.7-2.3); Osmolality Calculated 291 mOsm/kg (285-295); Phosphorus 4.4 mg/dL (2.5-4.5); Potassium 3.8 mmol/L (3.5-5.1); Sodium 135 mmol/L (136-145); Total Bilirubin 0.3 mg/dL (0.15-1.2); Total Protein 5.1 g/dL (6.6-8.7)
[2021-01-18] MEDS: FUROsemide 10 mg/mL SDV 10mL 60 MG IVP (08:06)
[2021-01-18] MEDS: potassium chloride ER 20 mEq Tablet PO (08:07)
[2021-01-18] MEDS: ondansetron 2 mg/ML SDV 2 mL 4 MG IVP (08:07)
[2021-01-18] MEDS: aspirin 81 mg Chew Tablet PO (08:07)
[2021-01-18] MEDS: metoprolol tartrate 25 mg Tablet 12.5 MG PO ×2 (08:08→20:59)
[2021-01-18] MEDS: bisacodyl 5 mg Tablet 10 MG PO (08:08)
[2021-01-18] MEDS: ipratropium-albuterol 3 mL Neb INHALATION ×4 (11:43→19:59)
[2021-01-18 12:05] LABS: Glucose Point of Care 215 mg/dL (70-110)
--- NOTE | 2021-01-18 16:15 | P.PN_ITS ---
Vitals/I&O/Wt Last Vital Signs Temp 97.2 F L 01/18/21 12:00 Pulse 81 01/18/21 15:04 Resp 20 H 01/18/21 14:56 BP 117/70 01/18/21 12:00 Pulse Ox 99 01/18/21 14:56 01/18/21 01/18/21 01/18/21 06:59 14:59 22:59 Intake Total 690 / 2070 240 / 240 Output Total 450 / 2650 1200 / 1200 2200 / 3400 Balance 240 / -580 -960 / -960 -2200 / -3160 Weight last 48 hrs Weight 104.326 kg Physical Exam Const: COMMON NORMALS: patient oriented x3 HENMT: COMMON NORMALS: normocephalic and atraumatic HEAD & SCALP: normocephalic and atraumatic Resp: COMMON NORMALS: clear to auscultation bilaterally AUSCULTATION: clear to auscultation bilaterally Cardio: COMMON NORMALS: regular rate, regular rhythm, S1 normal heart sound present, S2 normal heart sound present, No gallops present (Cardio), No murmurs present (Cardio), No rub (Cardio) and Peripheral pulses 2+ throughout RATE: regular rate RHYTHM: regular rhythm HEART SOUNDS: S1 normal heart sound present and S2 normal heart sound present PERIPHERAL PULSES: Peripheral pulses 2+ throughout GI: COMMON NORMALS: Normal to inspection, nondistended, normoactive bowel sounds present, Soft to palpation, non-tender, No hepatosplenomegaly present and no masses AUSCULTATION: Yes normoactive bowel sounds PALPATION: Yes Soft to palpation and Yes No hepatosplenomegaly present RECTAL EXAM: Yes deferred Extremity: COMMON NORMALS: no clubbing, cyanosis or edema and no pedal edema Neuro: COMMON NORMALS: patient oriented x3 Urinary Catheter Management^: Drake: Cath Placed During This Visit: yes Reason for Continuing Indwelling Catheter: Chronic Indwelling Urinary Catheter on Admission Urinary Catheter Date of Insertion: 01/17/21 Urinary Catheter Time of Insertion: 15:10 Data : 01/18/21 06:28 01/18/21 06:28 Micro: Microbiology 01/16/21 21:50 Urine Culture - Preliminary Urine,Clean Catch Gram Negative Rods 01/17/21 02:30 Blood Culture - Preliminary Blood NEGATIVE TO DATE 07/10/21 00:23 Blood Culture - Preliminary Blood Gram Negative Rods A&P Assessment and plan (1) CHF exacerbation: Decompensated heart failure with ejection fraction: Monitor intake output Daily weight k>4, Mg>2 Initially on Lasix 60 IV daily. Has been stopped on 01/18 as the patient is clinically euvolemic with net 3.3 Ls negative.SCR has also slightly uptrended. Will plan to discharge him on PO lasix 40 mg daily. with oral potassium. Fluid restriction 1500 cc Status: Resolved Qualifiers: Heart failure type: diastolic Qualified Code(s): I50.33 - Acute on chronic diastolic (congestive) heart failure (2) Urinary tract infection: Has history of ESBL E. coli. Urine culture:GNR:Pending Sensitivity Blood Culture is growing GNR 07/14 :Bottles. Repeat Blood Culture from 01/18:NTD Low clinical suspicion for Sepsis. Adequately covered with Primaxin Vancomycin was discontinued on 01/18.Low suspicion for MRSA. Drake catheter was changed on 01/18. Status: Acute Qualifiers: Encounter type: initial encounter Indwelling urinary catheter type: indwelling urethral catheter Urinary tract infection type: catheter-associated UTI Qualified Code(s): T83.511A - Infection and inflammatory reaction due to indwelling urethral catheter, initial encounter; N39.0 - Urinary tract infection, site not specified (3) Chronic indwelling Drake catheter: Status: Chronic (4) Edema of left lower extremity: With some calf pain. Bilateral lower extremity Doppler vein: Negative for DVT Status: Acute (5) COPD (chronic obstructive pulmonary disease): Currently does not appear to be acutely exacerbated but within differential Status: Chronic Qualifiers: COPD type: unspecified COPD Qualified Code(s): J44.9 - Chronic obstructive pulmonary disease, unspecified (6) Diabetes mellitus, type II: [id number]-ugrszzryo Status: Chronic Qualifiers: Chronic kidney disease stage: stage 3 (moderate) Diabetes mellitus complication detail: with chronic kidney disease Diabetes mellitus complication status: with kidney complications Diabetes mellitus terminal computer operator insulin use: without long-term use Qualified Code(s): E11.22 - Type 2 diabetes mellitus with diabetic chronic kidney disease; N18.3 - Chronic kidney disease, stage 3 (moderate) (7) Hypertension: Status: Chronic Qualifiers: Hypertension type: essential hypertension Qualified Code(s): I10 - Essential (primary) hypertension (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 coli Gentle diuresis Venous ultrasound of the left lower extremity Change Drake catheter Clarify and address home medications accordingly Sliding scale insulin for diabetes Continue home beta-blockade Continue home pain medications Continue home urinary medications Breathing treatments as needed Supportive care otherwise Heparin for DVT prophylaxis Anticipate discharge back home probably with hospice care after treatment for acute infection Allow natural as per his wishes Attestations Medical Necessity Statement*: Patient needs to be in hospital for the management of Decompensated HFpEF. Coding Level of Care Code Acute Imagery Analyst for [facility] Fwd Diagnoses CHF exacerbation I50.33 Heart failure type: diastolic Urinary tract infection T83.511A; N39.0 Encounter type: initial encounter Indwelling urinary catheter type: indwelling urethral catheter Urinary tract infection type: catheter-associated UTI Chronic indwelling Drake catheter Z96.0 Edema of left lower extremity R60.0 COPD (chronic obstructive pulmonary disease) J44.9 COPD type: unspecified COPD Diabetes mellitus, type II E11.22; N18.3 Chronic kidney disease stage: stage 3 (moderate) Diabetes mellitus complication detail: with chronic kidney disease Diabetes mellitus complication status: with kidney complications Diabetes mellitus terminal computer operator insulin use: without long-term use Hypertension I10 Hypertension type: essential hypertension BPH with urinary obstruction N40.1; N13.8 Aortic stenosis, mild I35.0 Chronic kidney disease, stage 3 N18.32 Chronic kidney disease stage 3 subtype: stage 3b (GFR 30-44) Osteoarthritis M15.9 Osteoarthritis location: multiple joints Osteoarthritis type: unspecified Hospice program care Z51.5
[2021-01-18 16:46] LABS: Glucose Point of Care 252 mg/dL (70-110)
[2021-01-18 21:28] LABS: Glucose Point of Care 268 mg/dL (70-110)
[2021-01-18] MEDS: HYDROcodone-acetaminophen 5-325 mg Tablet 1 TAB PO (23:39)
[2021-01-18] MEDS: ALPRAZolam 0.5 mg Tablet 0.25 MG PO (23:39)
[2021-01-19] VITALS (8 sets, daily range): BP systolic 125–162; BP diastolic 75–89; PULSE 71–91; RESP 16–24; TEMP 36.4–36.7; O2SAT 95–99
[2021-01-19 04:56] LABS: Basophils % 0.3 %; Eosinophils # 0.1 10^3/uL (0.0-0.8); Eosinophils % 0.6 %; Hematocrit 36.8 % (42.0-52.0); Lymphocytes # 1.4 10^3/uL (0.8-4.8); Lymphocytes % 10.3 %; Mean Corpuscular HGB Conc 29.9 g/dL (30.0-36.0); Mean Corpuscular Hemoglobin 24.6 pg (28.0-34.0); Mean Corpuscular Volume 82.3 fL (80-94); Mean Platelet Volume 11.2 fL (7.4-10.4); Monocytes # 1.4 10^3/uL (0.2-0.9); Monocytes % 10.7 %; Neutrophils # 10.23 10^3/uL (1.8-7.7); Neutrophils % 77.3 %; Nucleated Red Blood Cells % 0 %; Platelet Count 189 10^3/cmm (130-400); Red Blood Count 4.47 10^6/uL (4.1-5.3); White Blood Count 13.3 10^3/uL (4.0-10.0)
[2021-01-19 05:20] LABS: Blood Urea Nitrogen 36 mg/dL (8-23); Calcium 9.2 mg/dL (8.5-10.5); Carbon Dioxide 32 mmol/L (22-29); Chloride 90 mmol/L (98-107); Glucose 162 mg/dL (65-115); Osmolality Calculated 294 mOsm/kg (285-295); Sodium 136 mmol/L (136-145)
[2021-01-19] MEDS: heparin 5,000 unit/mL INJ 1 mL 5000 UNIT SUBCUT ×2 (06:13→18:32)
[2021-01-19 06:49] LABS: Glucose Point of Care 183 mg/dL (70-110)
[2021-01-19] MEDS: HYDROcodone-acetaminophen 5-325 mg Tablet 1 TAB PO ×2 (08:05→21:32)
[2021-01-19] MEDS: potassium chloride ER 20 mEq Tablet PO (08:05)
[2021-01-19] MEDS: aspirin 81 mg Chew Tablet PO (08:05)
[2021-01-19] MEDS: metoprolol tartrate 25 mg Tablet 12.5 MG PO ×2 (08:06→21:31)
--- NOTE | 2021-01-19 08:47 | PC.RESP ---
PULMONARY REHAB INFORMATION SENT TO PATIENT.
[2021-01-19 11:08] LABS: Glucose Point of Care 139 mg/dL (70-110)
[2021-01-19] MEDS: ondansetron 2 mg/ML SDV 2 mL 4 MG IVP ×2 (12:23→18:38)
--- NOTE | 2021-01-19 13:59 | P.PN_ITS ---
Subjective Subjective: Interval history: Vladimir feels like he is little short of breath today. Lower extremities are somewhat swollen according to the patient. History and physical reviewed as well as daily progress notes. Medications: Reviewed: Yes Vitals/I&O/Wt Last Vital Signs Temp 97.5 F L 01/19/21 11:25 Pulse 80 01/19/21 11:25 Resp 22 H 01/19/21 11:25 BP 162/88 01/19/21 11:25 Pulse Ox 99 01/19/21 11:25 01/18/21 01/19/21 01/19/21 22:59 06:59 14:59 Intake Total 220 / 560 100 / 660 420 / 420 Output Total 2200 / 3400 1225 / 4625 Balance -1980 / -2840 -1125 / -3965 420 / 420 Physical Exam Narrative: EXAM NARRATIVE: General exam demonstrates an anxious white male Neck is supple no lymphadenopathy or thyromegaly Cardiovascular regular rate and rhythm without murmur Lungs a few crackles at the bases and a few expiratory wheezes bilaterally Abdomen is soft obese nontender with positive bowel sounds Extremities with 1+ edema Urinary Catheter Management^: Drake: Cath Placed During This Visit: yes Reason for Continuing Indwelling Catheter: Chronic Indwelling Urinary Catheter on Admission Urinary Catheter Date of Insertion: 01/17/21 Urinary Catheter Time of Insertion: 15:10 Data : 01/19/21 04:30 01/19/21 04:30 Micro: Microbiology 01/16/21 21:50 Urine Culture - Final Urine,Clean Catch Escherichia coli esbl 01/17/21 00:23 Blood Culture - Preliminary Blood Escherichia coli esbl A&P Assessment and plan (1) CHF exacerbation: Lasix 40 mg IV now x1 Repeat electrolytes tomorrow Reassessment Consistent with acute distolic heart failure Status: Resolved Qualifiers: Heart failure type: diastolic Qualified Code(s): I50.33 - Acute on chronic diastolic (congestive) heart failure (2) Bacteremia: 1/ bottles with ESBL. Urine showing ESBL. Currently on Primaxin. Will need to make plan about course of treatment, and what the patient will allow. I have visited him regarding ertapenem for 10 to 14 days following his negative culture. He is considering. This would necessitate a PICC line to prevent loss of IV access following discharge. Status: Acute (3) Urinary tract infection: Secondary to ESBL. See above. Status: Acute Qualifiers: Urinary tract infection type: catheter-associated UTI Indwelling urinar y catheter type: indwelling urethral catheter Encounter type: initial encounter Qualified Code(s): T83.511A - Infection and inflammatory reaction due to indwelling urethral catheter, initial encounter; N39.0 - Urinary tract infection, site not specified (4) COPD (chronic obstructive pulmonary disease): No evidence of exacerbation currently Status: Chronic Qualifiers: COPD type: unspecified COPD Qualified Code(s): J44.9 - Chronic obstr uctive pulmonary disease, unspecified (5) Chronic kidney disease, stage 3: Monitor renal function closely Status: Chronic Qualifiers: Chronic kidney disease stage 3 subtype: stage 3b (GFR 30-44) Qualified Code(s): N18.32 - Chronic kidney disease, stage 3b (6) Hospice program care: Will resume hospice care following discharge Status: Acute Additional A&P Information Hospice patient, allow natural Heparin for DVT prophylaxis Attestations Medical Necessity Statement*: Needs continued hospitalization secondary to need for further diuresis for acute diastolic heart failure as well as IV antibiotics for ESBL bacteremia Coding Level of Care Code Acute Deposition Operator for [facility] Fwd Diagnoses CHF exacerbation I50.33 Heart failure type: diastolic Bacteremia R78.81 Urinary tract infection T83.511A; N39.0 Urinary tract infection type: catheter-associated UTI Indwelling urinary catheter type: indwelling urethral catheter Encounter type: initial encounter COPD (chronic obstructive pulmonary disease) J44.9 COPD type: unspecified COPD Chronic kidney disease, stage 3 N18.32 Chronic kidney disease stage 3 subtype: stage 3b (GFR 30-44) Hospice program care Z51.5
--- NOTE | 2021-01-19 14:15 | PC.RESP ---
Pt has refused treatment x3 today.
[2021-01-19] MEDS: FUROsemide 10 mg/mL SDV 4mL 40 MG IVP (14:27)
[2021-01-19 16:51] LABS: Glucose Point of Care 213 mg/dL (70-110)
[2021-01-19] MEDS: bisacodyl 5 mg Tablet 10 MG PO (18:39)
[2021-01-19 20:32] LABS: Glucose Point of Care 222 mg/dL (70-110)
[2021-01-19] MEDS: ALPRAZolam 0.5 mg Tablet 0.25 MG PO (21:32)
[2021-01-20] VITALS (12 sets, daily range): BP systolic 112–164; BP diastolic 71–89; PULSE 75–89; RESP 17–24; TEMP 36.6–37.2; O2SAT 94–99
[2021-01-20] MEDS: heparin 5,000 unit/mL INJ 1 mL 5000 UNIT SUBCUT ×2 (06:21→16:12)
[2021-01-20 06:26] LABS: Glucose Point of Care 130 mg/dL (70-110)
[2021-01-20] MEDS: potassium chloride ER 20 mEq Tablet PO (08:07)
[2021-01-20] MEDS: metoprolol tartrate 25 mg Tablet 12.5 MG PO ×2 (08:07→20:25)
[2021-01-20] MEDS: aspirin 81 mg Chew Tablet PO (08:07)
[2021-01-20 09:47] LABS: Basophils % 0.3 %; Eosinophils # 0.1 10^3/uL (0.0-0.8); Eosinophils % 0.4 %; Hemoglobin 10.7 g/dL (11.7-16.6); Lymphocytes # 0.8 10^3/uL (0.8-4.8); Lymphocytes % 6.6 %; Mean Corpuscular HGB Conc 29.7 g/dL (30.0-36.0); Mean Corpuscular Hemoglobin 24.5 pg (28.0-34.0); Mean Corpuscular Volume 82.4 fL (80-94); Mean Platelet Volume 10.4 fL (7.4-10.4); Monocytes # 0.8 10^3/uL (0.2-0.9); Monocytes % 6.3 %; Neutrophils # 10.45 10^3/uL (1.8-7.7); Neutrophils % 85.6 %; Nucleated Red Blood Cells % 0 %; Platelet Count 180 10^3/cmm (130-400); Red Blood Count 4.37 10^6/uL (4.1-5.3); Red Cell Distribution Width 16.9 % (12.1-15.1); White Blood Count 12.2 10^3/uL (4.0-10.0)
[2021-01-20] MEDS: FUROsemide 40 mg Tablet PO (09:56)
[2021-01-20] MEDS: gabapentin 300 mg Capsule PO ×3 (09:56→20:25)
[2021-01-20] MEDS: predniSONE 20 mg Tablet 40 MG PO (09:56)
[2021-01-20 10:04] LABS: Alanine Aminotransferase 18 U/L (0-41); Albumin Level 3.1 g/dL (3.5-5.2); Alkaline Phosphatase 153 IU/L (40-130); Anion Gap 12.9 (5-19); Aspartate Amino Transferase 20 U/L (0-40); Blood Urea Nitrogen 35 mg/dL (8-23); Calcium 8.9 mg/dL (8.5-10.5); Carbon Dioxide 35 mmol/L (22-29); Chloride 92 mmol/L (98-107); Globulin 2.9 g/dL (1.3-4.6); Glucose 274 mg/dL (65-115); Osmolality Calculated 300 mOsm/kg (285-295); Potassium 3.9 mmol/L (3.5-5.1); Sodium 136 mmol/L (136-145); Total Bilirubin 0.3 mg/dL (0.15-1.2)
[2021-01-20 11:31] LABS: Glucose Point of Care 280 mg/dL (70-110)
--- NOTE | 2021-01-20 12:54 | PM.PN ---
Subjective Subjective: Interval history: Vladimir reports he still does not feel great. Still short of breath. Legs are less swollen. Medications: Reviewed: Yes Vitals/I&O/Wt Last Vital Signs Temp 98.8 F 01/20/21 11:53 Pulse 77 01/20/21 11:53 Resp 17 01/20/21 11:53 BP 136/83 01/20/21 11:53 Pulse Ox 97 01/20/21 11:53 01/19/21 01/20/21 01/20/21 22:59 06:59 14:59 Intake Total 220 / 640 100 / 740 550 / 550 Output Total 2450 / 2450 1000 / 3450 Balance -2230 / -1810 -900 / -2710 550 / 550 Physical Exam Narrative: EXAM NARRATIVE: General exam no apparent distress Neck is supple no lymphadenopathy or thyromegaly Cardiovascular regular rate and rhythm without murmur Lungs still with some bilateral expiratory wheezing Abdomen is soft obese nontender with positive bowel sounds Extremities with 1+ edema Urinary Catheter Management^: Drake: Cath Placed During This Visit: yes Reason for Continuing Indwelling Catheter: Chronic Indwelling Urinary Catheter on Admission Urinary Catheter Date of Insertion: 01/17/21 Urinary Catheter Time of Insertion: 15:10 Data : 01/20/21 09:18 01/20/21 09:18 Micro: Microbiology 01/16/21 21:50 Urine Culture - Final Urine,Clean Catch Escherichia coli esbl 01/17/21 00:23 Blood Culture - Preliminary Blood Escherichia coli esbl A&P Assessment and plan (1) CHF exacerbation: More compensated. Initiate his Lasix 40 mg once daily, with potassium He diuresed well yesterday with over 2 L out Consistent with acute distolic heart failure Status: Resolved Qualifiers: Heart failure type: diastolic Qualified Code(s): I50.33 - Acute on chronic diastolic (congestive) heart failure (2) Bacteremia: 1/ bottles with ESBL. Urine showing ESBL. Currently on Primaxin. Secondary to difficulty arranging any kind of IV outpatient antibiotics he will be getting this inpatient. He will receive 10 days IV. Today is day #5. Urine culture grew same organism as blood. Status: Acute (3) Urinary tract infection: Secondary to ESBL. See above. Status: Acute Qualifiers: Urinary tract infection type: catheter-associated UTI Indwelling urinary catheter type: indwelling urethral catheter Encounter type: initial encounter Qualified Code(s): T83.511A - Infection and inflammatory reaction due to indwelling urethral catheter, initial encounter; N39.0 - Urinary tract infection, site not specified (4) COPD (chronic obstructive pulmonary disease): Still wheezing. Consistent with an element of acute exacerbation Prednisone 40 mg daily Pulmonary toilet every 4 hours Status: Chronic Qualifiers: COPD type: unspecified COPD Qualified Code(s): J44.9 - Chronic obstructive pulmonary disease, unspecified (5) Chronic kidney disease, stage 3: Monitor renal function closely Acute kidney injury superimposed on chronic kidney disease. This is improved with diuresis. Status: Chronic Qualifiers: Chronic kidney disease stage 3 subtype: stage 3b (GFR 30-44) Qualified Code(s): N18.32 - Chronic kidney disease, stage 3b (6) Hospice program care: Will resume hospice care following discharge Status: Acute Additional A&P Information Hospice patient, allow natural Heparin for DVT prophylaxis Attestations Medical Necessity Statement*: Is continued hospitalization for IV antibiotics secondary to bacteremia, UTI with ESBL Coding Level of Care Code Acute Product Design Engineer for [facility] Fwd Diagnoses CHF exacerbation I50.33 Heart failure type: diastolic Bacteremia R78.81 Urinary tract infection T83.511A; N39.0 Urinary tract infection type: catheter-associated UTI Indwelling urinary catheter type: indwelling urethral catheter Encounter type: initial encounter COPD (chronic obstructive pulmonary disease) J44.9 COPD type: unspecified COPD Chronic kidney disease, stage 3 N18.32 Chronic kidney disease stage 3 subtype: stage 3b (GFR 30-44) Hospice program care Z51.5
--- NOTE | 2021-01-20 14:08 | DCPLANNER ---
Pg 2 of IM updated and reviewed with pt. He states that he is satisfied. No questions, copy provided.
[2021-01-20] MEDS: ipratropium-albuterol 3 mL Neb INHALATION ×3 (16:11→20:47)
[2021-01-20 17:30] LABS: Glucose Point of Care 219 mg/dL (70-110)
[2021-01-20] MEDS: sertraline 50 mg Tablet PO (20:25)
[2021-01-20] MEDS: HYDROcodone-acetaminophen 5-325 mg Tablet 1 TAB PO (20:25)
[2021-01-20] MEDS: ALPRAZolam 0.5 mg Tablet 0.25 MG PO (20:25)
[2021-01-20 21:12] LABS: Glucose Point of Care 371 mg/dL (70-110)
[2021-01-20] MEDS: ondansetron 2 mg/ML SDV 2 mL 4 MG IVP (22:24)
[2021-01-21] VITALS (14 sets, daily range): BP systolic 100–156; BP diastolic 54–81; PULSE 67–88; RESP 16–20; TEMP 36.7–37.6; O2SAT 92–99
[2021-01-21] MEDS: pantoprazole DR 40 mg Tablet PO (06:00)
[2021-01-21] MEDS: heparin 5,000 unit/mL INJ 1 mL 5000 UNIT SUBCUT ×2 (06:01→17:28)
[2021-01-21 06:26] LABS: Glucose Point of Care 157 mg/dL (70-110)
[2021-01-21 07:29] LABS: Anion Gap 13.9 (5-19); Blood Urea Nitrogen 38 mg/dL (8-23); Calcium 8.9 mg/dL (8.5-10.5); Carbon Dioxide 38 mmol/L (22-29); Chloride 92 mmol/L (98-107); Glucose 157 mg/dL (65-115); Osmolality Calculated 302 mOsm/kg (285-295); Potassium 3.9 mmol/L (3.5-5.1); Sodium 140 mmol/L (136-145)
[2021-01-21] MEDS: predniSONE 20 mg Tablet 40 MG PO (08:05)
[2021-01-21] MEDS: FUROsemide 40 mg Tablet PO (08:05)
[2021-01-21] MEDS: aspirin 81 mg Chew Tablet PO (08:05)
[2021-01-21] MEDS: potassium chloride ER 20 mEq Tablet PO (08:05)
[2021-01-21] MEDS: metoprolol tartrate 25 mg Tablet 12.5 MG PO ×2 (08:06→21:29)
[2021-01-21] MEDS: gabapentin 300 mg Capsule PO ×3 (08:06→21:29)
[2021-01-21] MEDS: ondansetron 2 mg/ML SDV 2 mL 4 MG IVP (08:21)
[2021-01-21] MEDS: oxybutynin 5 mg Tablet PO (08:22)
[2021-01-21] MEDS: ipratropium-albuterol 3 mL Neb INHALATION ×5 (08:29→23:07)
[2021-01-21 10:28] LABS: Glucose Point of Care 230 mg/dL (70-110)
[2021-01-21 11:15] LABS: Glucose Point of Care 222 mg/dL (70-110)
--- NOTE | 2021-01-21 16:28 | P.PN_ITS ---
Subjective Subjective: Interval history: Vladimir reports he was little nauseated this morning. Breathing may be a little bit better. No specific complaints. We discussed in general the plan to give him IV antibiotics here, and the need to work with physical therapy here. Medications: Reviewed: Yes Vitals/I&O/Wt Last Vital Signs Temp 98.7 F 01/21/21 12:14 Pulse 76 01/21/21 15:15 Resp 18 01/21/21 15:15 BP 100/61 01/21/21 12:14 Pulse Ox 97 01/21/21 15:15 01/21/21 01/21/21 01/21/21 06:59 14:59 22:59 Intake Total 200 / 1090 390 / 390 Output Total 625 / 2455 Balance -425 / -1365 390 / 390 Physical Exam Narrative: EXAM NARRATIVE: General exam no apparent distress Neck is supple no lymphadenopathy or thyromegaly Cardiovascular regular rate and rhythm without murmur Lungs relatively clear today with diminished breath sounds bilaterally Abdomen is soft obese nontender with positive bowel sounds Extremities with 1+ edema Urinary Catheter Management^: Drake: Cath Placed During This Visit: yes Reason for Continuing Indwelling Catheter: Chronic Indwelling Urinary Catheter on Admission Urinary Catheter Date of Insertion: 01/17/21 Urinary Catheter Time of Insertion: 15:10 Data : 01/20/21 09:18 01/21/21 05:29 A&P Assessment and plan (1) CHF exacerbation: More compensated. Continue oral Lasix, potassium Continue to diurese well Consistent with acute diastolic heart failure Status: Resolved Qualifiers: Heart failure type: diastolic Qualified Code(s): I50.33 - Acute on chronic diastolic (congestive) heart failure (2) Bacteremia: 1/4 bottles with ESBL. Urine showing ESBL. Currently on Primaxin. Secondary to difficulty arranging any kind of IV outpatient antibiotics he will be getting this inpatient. He will receive 10 days IV. Today is day #6. Urine culture grew same organism as blood. Status: Acute (3) Urinary tract infection: Secondary to ESBL. See above. Status: Acute Qualifiers: Urinary tract infection type: catheter-associated UTI Indwelling urinary catheter type: indwelling urethral catheter Encounter type: initial encounter Qualified Code(s): T83.511A - Infection and inflammatory reaction due to indwelling urethral catheter, initial encounter; N39.0 - Urinary tract infection, site not specified (4) COPD (chronic obstructive pulmonary disease): Improved Consistent with an element of acute exacerbation Continue prednisone 40 mg daily Pulmonary toilet every 4 hours Status: Chronic Qualifiers: COPD type: unspecified COPD Qualified Code(s): J44.9 - Chronic obstructive pulmonary disease, unspecified (5) Chronic kidney disease, stage 3: Monitor renal function closely Acute kidney injury superimposed on chronic kidney disease. This is improved with diuresis. Status: Chronic Qualifiers: Chronic kidney disease stage 3 subtype: stage 3b (GFR 30-44) Qualified Code(s): N18.32 - Chronic kidney disease, stage 3b (6) Hospice program care: Will resume hospice care following discharge Status: Acute Additional A&P Information Hospice patient, allow natural Heparin for DVT prophylaxis Attestations Medical Necessity Statement*: Needs continued hospital stay for IV antibiotics related to bacteremia, UTI Coding Level of Care Code Acute Weight Inspector for [facility] Fwd Diagnoses CHF exacerbation I50.33 Heart failure type: diastolic Bacteremia R78.81 Urinary tract infection T83.511A; N39.0 Urinary tract infection type: catheter-associated UTI Indwelling urinary catheter type: indwelling urethral catheter Encounter type: initial encounter COPD (chronic obstructive pulmonary disease) J44.9 COPD type: unspecified COPD Chronic kidney disease, stage 3 N18.32 Chronic kidney disease stage 3 subtype: stage 3b (GFR 30-44) Hospice program care Z51.5
[2021-01-21 17:15] LABS: Glucose Point of Care 271 mg/dL (70-110)
[2021-01-21 20:53] LABS: Glucose Point of Care 331 mg/dL (70-110)
[2021-01-21] MEDS: sertraline 50 mg Tablet PO (21:29)
[2021-01-22] VITALS (18 sets, daily range): BP systolic 118–157; BP diastolic 52–91; PULSE 67–96; RESP 16–22; TEMP 36–37.1; O2SAT 91–99
[2021-01-22] MEDS: HYDROcodone-acetaminophen 5-325 mg Tablet 1 TAB PO ×3 (00:29→22:57)
[2021-01-22] MEDS: ipratropium-albuterol 3 mL Neb INHALATION ×6 (03:01→23:23)
[2021-01-22] MEDS: heparin 5,000 unit/mL INJ 1 mL 5000 UNIT SUBCUT ×2 (05:18→17:56)
[2021-01-22] MEDS: pantoprazole DR 40 mg Tablet PO (05:19)
[2021-01-22 06:34] LABS: Glucose Point of Care 185 mg/dL (70-110)
[2021-01-22 07:15] LABS: Basophils % 0.3 %; Eosinophils % 0.2 %; Hematocrit 37.2 % (42.0-52.0); Hemoglobin 11.1 g/dL (11.7-16.6); Lymphocytes # 1.5 10^3/uL (0.8-4.8); Lymphocytes % 10.1 %; Mean Corpuscular HGB Conc 29.8 g/dL (30.0-36.0); Mean Corpuscular Hemoglobin 24.6 pg (28.0-34.0); Mean Corpuscular Volume 82.3 fL (80-94); Mean Platelet Volume 10.2 fL (7.4-10.4); Monocytes % 6.7 %; Neutrophils # 12.07 10^3/uL (1.8-7.7); Neutrophils % 79.5 %; Nucleated Red Blood Cells % 0 %; Platelet Count 251 10^3/cmm (130-400); Red Blood Count 4.52 10^6/uL (4.1-5.3); Red Cell Distribution Width 16.6 % (12.1-15.1); White Blood Count 15.2 10^3/uL (4.0-10.0)
[2021-01-22 07:35] LABS: Anion Gap 12.9 (5-19); Blood Urea Nitrogen 40 mg/dL (8-23); Calcium 8.9 mg/dL (8.5-10.5); Carbon Dioxide 36 mmol/L (22-29); Chloride 93 mmol/L (98-107); Glucose 161 mg/dL (65-115); Osmolality Calculated 299 mOsm/kg (285-295); Potassium 3.9 mmol/L (3.5-5.1); Sodium 138 mmol/L (136-145)
[2021-01-22] MEDS: predniSONE 20 mg Tablet 40 MG PO (08:57)
[2021-01-22] MEDS: FUROsemide 40 mg Tablet PO (08:57)
[2021-01-22] MEDS: potassium chloride ER 20 mEq Tablet PO (08:57)
[2021-01-22] MEDS: aspirin 81 mg Chew Tablet PO (08:57)
[2021-01-22] MEDS: gabapentin 300 mg Capsule PO ×3 (08:57→21:16)
[2021-01-22] MEDS: ondansetron 2 mg/ML SDV 2 mL 4 MG IVP (08:59)
[2021-01-22] MEDS: metoprolol tartrate 25 mg Tablet 12.5 MG PO ×2 (09:00→21:15)
--- NOTE | 2021-01-22 11:02 | PC.SOCIAL ---
IMM updated Pg 2 of IMM updated and reviewed with pt. He verbalized an understanding. No questions, copy provided.
--- NOTE | 2021-01-22 11:14 | PC.CHAP ---
Pastoral Care Encounter/Spiritual Assessment Type of Contact [] Declined rn medication visit [] Patient/Family/Request visit [] Outpatient visit [] Follow-up visit [] Physician referral [] Code/Alert [x] Routine visit [] Staff referral [] Actively dying [] Patient sleeping [] Family support [] [] Out of room [] Palliative care [] [xx] Receiving care in room [] Pre-surgical visit [] Trauma [] Long length of stay [] ICU visit [x] Other: confused about everything and his health negative attitude Relational/Emotional Strength [] Patient feels connected with others/family/visitors/staff [] Distress [] Loneliness/isolation [] Abandonment Spirituality of Patient [] Person of Rosio [] Attends Adventist of their Rosio [] Believes in Prayer [] Reads Bible or Sikh materials [] There are Spiritual issues to be addressed Community Health Coordinator Interventions [] Prayer [] Active listening [] Non-anxious presence [] Spiritual/emotional support [] Crisis/trauma care [] Spiritual counseling [] Bereavement support [] Provided bereavement packet [] Provided Bible/devotional materials [] Provided toy/stuffed animal, coloring book to patient or family member [] Provided Communion [] Anointing/[place] [] Salvation [] Completed spiritual assessment [] Other: Impact on Illness or Injury [] Angry [] Fearful [] Anxious [] Often cries [] Exhaustion [] Unable to work [] Unable to attend restoration [] Unable to walk/stand [] Unable to read [] Unable to drive [] Unable to eat/drink [] Unable to sleep [] Unable to be with family [] Patient intubated [] Other: Summary confused about everything and his health negative attitude Time spent with patient 10 mins
[2021-01-22 11:46] LABS: Glucose Point of Care 216 mg/dL (70-110)
--- NOTE | 2021-01-22 13:14 | PM.PN ---
Subjective Subjective: Interval history: Vladimir reports he is doing okay this morning. I discussed with him he would likely go home Tuesday. Medications: Reviewed: Yes Vitals/I&O/Wt Last Vital Signs Temp 96.8 F L 01/22/21 11:12 Pulse 92 01/22/21 11:53 Resp 22 H 01/22/21 11:53 BP 118/80 01/22/21 11:12 Pulse Ox 91 01/22/21 11:53 01/21/21 01/22/21 01/22/21 22:59 06:59 14:59 Intake Total 280 / 670 200 / 870 940 / 940 Output Total 1250 / 1250 1000 / 2250 Balance -970 / -580 -800 / -1380 940 / 940 Physical Exam Narrative: EXAM NARRATIVE: General exam no apparent distress Neck is supple no lymphadenopathy or thyromegaly Cardiovascular regular rate and rhythm without murmur Lungs relatively clear today with diminished breath sounds bilaterally Abdomen is soft obese nontender with positive bowel sounds Extremities with 1+ edema Urinary Catheter Management^: Drake: Cath Placed During This Visit: yes Reason for Continuing Indwelling Catheter: Chronic Indwelling Urinary Catheter on Admission Urinary Catheter Date of Insertion: 01/17/21 Urinary Catheter Time of Insertion: 15:10 Data : 01/22/21 06:00 01/22/21 06:00 Micro: Microbiology 01/17/21 02:30 Blood Culture - Final Blood NO GROWTH AFTER 5 DAYS 01/17/21 00:23 Blood Culture - Final Blood Escherichia coli esbl A&P Assessment and plan (1) CHF exacerbation: Compensated currently. Continue oral Lasix, potassium Continue to diurese well Fluid restrict to 1200 cc Consistent with acute diastolic heart failure Status: Resolved Qualifiers: Heart failure type: diastolic Qualified Code(s): I50.33 - Acute on chronic diastolic (congestive) heart failure (2) Bacteremia: 1/ bottles with ESBL. Urine showing ESBL. Currently on Primaxin. Secondary to difficulty arranging any kind of IV outpatient antibiotics he will be getting this inpatient. He will receive 10 days IV. Today is day #7. Urine culture grew same organism as blood. Status: Acute (3) Urinary tract infection: Secondary to ESBL. See above. Status: Acute Qualifiers: Urinary tract infection type: catheter-associated UTI Indwelling urinary catheter type: indwelling urethral catheter Encounter type: initial encounter Qualified Code(s): T83.511A - Infection and inflammatory reaction due to indwelling urethral catheter, initial encounter; N39.0 - Urinary tract infection, site not specified (4) COPD (chronic obstructive pulmonary disease): Improved Consistent with an element of acute exacerbation Continue prednisone 40 mg daily Pulmonary toilet every 4 hours Status: Chronic Qualifiers: COPD type: unspecified COPD Qualified Code(s): J44.9 - Chronic obstructive pulmonary disease, unspecified (5) Chronic kidney disease, stage 3: Monitor renal function closely Acute kidney injury superimposed on chronic kidney disease. This is improved with diuresis. Status: Chronic Qualifiers: Chronic kidney disease stage 3 subtype: stage 3b (GFR 30-44) Qualified Code(s): N18.32 - Chronic kidney disease, stage 3b (6) Hospice program care: From my understanding hospice may be declining him now. We'll have to arrange home health Status: Acute Additional A&P Information Allow natural Heparin for DVT prophylaxis Attestations Medical Necessity Statement*: Needs continued hospitalization for IV antibiotics secondary to ESBL UTI with bacteremia Coding Level of Care Code Acute Cnc Technician for [facility] Fwd Diagnoses CHF exacerbation I50.33 Heart failure type: diastolic Bacteremia R78.81 Urinary tract infection T83.511A; N39.0 Urinary tract infection type: catheter-associated UTI Indwelling urinary catheter type: indwelling urethral catheter Encounter type: initial encounter COPD (chronic obstructive pulmonary disease) J44.9 COPD type: unspecified COPD Chronic kidney disease, stage 3 N18.32 Chronic kidney disease stage 3 subtype: stage 3b (GFR 30-44) Hospice program care Z51.5
[2021-01-22 16:46] LABS: Glucose Point of Care 285 mg/dL (70-110)
[2021-01-22 20:27] LABS: Glucose Point of Care 345 mg/dL (70-110)
[2021-01-22] MEDS: sertraline 50 mg Tablet PO (21:15)
[2021-01-23] VITALS (13 sets, daily range): BP systolic 122–179; BP diastolic 71–81; PULSE 78–102; RESP 17–22; TEMP 36.4–37; O2SAT 90–98
[2021-01-23] MEDS: heparin 5,000 unit/mL INJ 1 mL 5000 UNIT SUBCUT ×2 (05:17→17:37)
[2021-01-23] MEDS: pantoprazole DR 40 mg Tablet PO (05:17)
[2021-01-23 06:18] LABS: Glucose Point of Care 144 mg/dL (70-110)
[2021-01-23] MEDS: ipratropium-albuterol 3 mL Neb INHALATION ×5 (07:31→23:40)
[2021-01-23] MEDS: FUROsemide 40 mg Tablet PO (07:50)
[2021-01-23] MEDS: aspirin 81 mg Chew Tablet PO (08:36)
[2021-01-23] MEDS: metoprolol tartrate 25 mg Tablet 12.5 MG PO ×2 (08:36→21:36)
[2021-01-23] MEDS: potassium chloride ER 20 mEq Tablet PO (08:36)
[2021-01-23] MEDS: gabapentin 300 mg Capsule PO ×3 (08:36→21:36)
[2021-01-23] MEDS: predniSONE 20 mg Tablet 40 MG PO (08:36)
--- NOTE | 2021-01-23 10:51 | PM.PN ---
Subjective Subjective: Interval history: Vladimir reports he is doing okay but would like some close brought from home. Medications: Reviewed: Yes Vitals/I&O/Wt Last Vital Signs Temp 97.5 F L 01/23/21 07:21 Pulse 88 01/23/21 07:37 Resp 18 01/23/21 07:33 BP 179/79 01/23/21 07:21 Pulse Ox 94 01/23/21 07:33 01/22/21 01/23/21 01/23/21 22:59 06:59 14:59 Intake Total 940 / 2360 200 / 2560 240 / 240 Output Total 1600 / 2600 Balance 940 / 1360 -1400 / -40 240 / 240 Physical Exam Narrative: EXAM NARRATIVE: General exam no apparent distress Neck is supple no lymphadenopathy or thyromegaly Cardiovascular regular rate and rhythm without murmur Lungs relatively clear today with diminished breath sounds bilaterally Abdomen is soft obese nontender with positive bowel sounds Extremities with 1+ edema Urinary Catheter Management^: Drake: Cath Placed During This Visit: yes Reason for Continuing Indwelling Catheter: Chronic Indwelling Urinary Catheter on Admission Urinary Catheter Date of Insertion: 01/17/21 Urinary Catheter Time of Insertion: 15:10 Data : 01/22/21 06:00 01/22/21 06:00 A&P Assessment and plan (1) CHF exacerbation: Compensated currently. Continue oral Lasix, potassium Continue fluid restriction Consistent with acute diastolic heart failure Recheck electrolytes tomorrow Status: Resolved Qualifiers: Heart failure type: diastolic Qualified Code(s): I50.33 - Acute on chronic diastolic (congestive) heart failure (2) Bacteremia: 1/4 bottles with ESBL. Urine showing ESBL. Currently on Primaxin. Secondary to difficulty arranging any kind of IV outpatient antibiotics he will be getting this inpatient. He will receive 10 days IV. Today is day #8. Urine culture grew same organism as blood. Status: Acute (3) Urinary tract infection: Secondary to ESBL. See above. Status: Acute Qualifiers: Urinary tract infection type: catheter-associated UTI Indwelling urinary catheter type: indwelling urethral catheter Encounter type: initial encounter Qualified Code(s): T83.511A - Infection and inflammatory reaction due to indwelling urethral catheter, initial encounter; N39.0 - Urinary tract infection, site not specified (4) COPD (chronic obstructive pulmonary disease): Improved Consistent with an element of acute exacerbation Continue prednisone 40 mg daily Pulmonary toilet every 4 hours Status: Chronic Qualifiers: COPD type: unspecified COPD Qualified Code(s): J44.9 - Chronic obstructive pulmonary disease, unspecified (5) Chronic kidney disease, stage 3: Monitor renal function closely Acute kidney injury superimposed on chronic kidney disease. This is improved with diuresis. Status: Chronic Qualifiers: Chronic kidney disease stage 3 subtype: stage 3b (GFR 30-44) Qualified Code(s): N18.32 - Chronic kidney disease, stage 3b (6) Hospice program care: From my understanding hospice may be declining him now. Home health has been arranged. Status: Acute Additional A&P Information History of chronic indwelling urinary catheter Allow natural Heparin for DVT prophylaxis Attestations Medical Necessity Statement*: Needs continued hospitalization secondary to bacteremia, UTI with ESBL requiring IV antibiotics Coding Level of Care Code Acute Dental Office Manager for [facility] Fwd Diagnoses CHF exacerbation I50.33 Heart failure type: diastolic Bacteremia R78.81 Urinary tract infection T83.511A; N39.0 Urinary tract infection type: catheter-associated UTI Indwelling urinary catheter type: indwelling urethral catheter Encounter type: initial encounter COPD (chronic obstructive pulmonary disease) J44.9 COPD type: unspecified COPD Chronic kidney disease, stage 3 N18.32 Chronic kidney disease stage 3 subtype: stage 3b (GFR 30-44) Hospice program care Z51.5
[2021-01-23 13:12] LABS: Glucose Point of Care 182 mg/dL (70-110)
[2021-01-23 17:23] LABS: Glucose Point of Care 302 mg/dL (70-110)
[2021-01-23 21:32] LABS: Glucose Point of Care 220 mg/dL (70-110)
[2021-01-23] MEDS: sertraline 50 mg Tablet PO (21:36)
[2021-01-23] MEDS: HYDROcodone-acetaminophen 5-325 mg Tablet 1 TAB PO (21:36)
[2021-01-24] VITALS (15 sets, daily range): BP systolic 116–145; BP diastolic 60–93; PULSE 76–102; RESP 16–22; TEMP 36.4–36.9; O2SAT 90–97
[2021-01-24] MEDS: pantoprazole DR 40 mg Tablet PO (05:45)
[2021-01-24] MEDS: heparin 5,000 unit/mL INJ 1 mL 5000 UNIT SUBCUT ×2 (05:45→17:29)
[2021-01-24 06:54] LABS: Glucose Point of Care 153 mg/dL (70-110)
[2021-01-24] MEDS: ondansetron 2 mg/ML SDV 2 mL 4 MG IVP (07:24)
[2021-01-24] MEDS: ipratropium-albuterol 3 mL Neb INHALATION ×5 (08:00→23:32)
[2021-01-24] MEDS: aspirin 81 mg Chew Tablet PO (08:28)
[2021-01-24] MEDS: gabapentin 300 mg Capsule PO ×3 (08:28→20:39)
[2021-01-24] MEDS: predniSONE 20 mg Tablet 40 MG PO (08:28)
[2021-01-24] MEDS: potassium chloride ER 20 mEq Tablet PO (08:28)
[2021-01-24] MEDS: FUROsemide 40 mg Tablet PO (08:28)
--- NOTE | 2021-01-24 08:33 | PC.SOCIAL ---
IMM updated Pg 2 of IMM updated and reviewed with pt. He verbalized an understanding. No questions, copy provided.
[2021-01-24 09:37] LABS: Basophils # 0.1 10^3/uL (0.0-0.1); Basophils % 0.3 %; Eosinophils # 0.1 10^3/uL (0.0-0.8); Eosinophils % 0.3 %; Hematocrit 42.2 % (42.0-52.0); Hemoglobin 12.6 g/dL (11.7-16.6); Lymphocytes # 2.3 10^3/uL (0.8-4.8); Lymphocytes % 11.9 %; Mean Corpuscular HGB Conc 29.9 g/dL (30.0-36.0); Mean Corpuscular Hemoglobin 24.5 pg (28.0-34.0); Mean Corpuscular Volume 81.9 fL (80-94); Mean Platelet Volume 10.6 fL (7.4-10.4); Monocytes # 1.5 10^3/uL (0.2-0.9); Monocytes % 7.6 %; Neutrophils # 14.96 10^3/uL (1.8-7.7); Neutrophils % 76.5 %; Nucleated Red Blood Cells % 0 %; Platelet Count 399 10^3/cmm (130-400); Red Blood Count 5.15 10^6/uL (4.1-5.3); Red Cell Distribution Width 17.2 % (12.1-15.1); White Blood Count 19.6 10^3/uL (4.0-10.0)
[2021-01-24 09:55] LABS: Blood Urea Nitrogen 43 mg/dL (8-23); Calcium 9.5 mg/dL (8.5-10.5); Carbon Dioxide 34 mmol/L (22-29); Chloride 91 mmol/L (98-107); Glucose 189 mg/dL (65-115); Osmolality Calculated 302 mOsm/kg (285-295); Sodium 138 mmol/L (136-145)
[2021-01-24 10:16] LABS: Anion Gap 17.2 (5-19); Potassium 4.2 mmol/L (3.5-5.1)
[2021-01-24] MEDS: metoprolol tartrate 25 mg Tablet 12.5 MG PO ×2 (10:44→20:38)
--- NOTE | 2021-01-24 11:50 | P.PN_ITS ---
Subjective Subjective: Interval history: Increasing bilateral lower extremity edema, patient states he is having some trouble breathing today. Increasing leukocytosis likely 2/2 steroids Medications: Reviewed: Yes Vitals/I&O/Wt Last Vital Signs Temp 98.1 F 01/24/21 11:41 Pulse 97 01/24/21 11:41 Resp 18 01/24/21 11:41 BP 138/81 01/24/21 11:41 Pulse Ox 95 01/24/21 11:41 01/23/21 01/24/21 01/24/21 22:59 06:59 14:59 Intake Total 820 / 1400 100 / 1500 440 / 440 Output Total 2400 / 2400 800 / 3200 Balance -1580 / -1000 -700 / -1700 440 / 440 Physical Exam Narrative: EXAM NARRATIVE: GEN: Awake, alert and oriented, no acute distress CVS: S1S2 N RS: B/L crackles lung bases Abd: Soft, nt/nd , bs+ LSAT INSTRUCTOR: no focal neuro deficits Urinary Catheter Management^: Drake: Cath Placed During This Visit: yes Reason for Continuing Indwelling Catheter: Chronic Indwelling Urinary Catheter on Admission Urinary Catheter Date of Insertion: 01/17/21 Urinary Catheter Time of Insertion: 15:10 Data : 01/24/21 08:35 01/24/21 08:35 Micro: Microbiology 01/24/21 11:25 Blood Culture - Preliminary Blood SPECIMEN COLLECTED A&P Assessment and plan (1) CHF exacerbation: increasing LE edema and rales on exam. Change lasix to 40mg iv q12h monitor urine output Continue fluid restriction Consistent with acute diastolic heart failure Recheck electrolytes tomorrow Status: Resolved Qualifiers: Heart failure type: diastolic Qualified Code(s): I50.33 - Acute on chronic diastolic (congestive) heart failure (2) Bacteremia: 1/ bottles with ESBL. Urine showing ESBL. Currently on Primaxin. Secondary to difficulty arranging any kind of IV outpatient antibiotics he will be getting this inpatient. He will receive 10 days IV. Today is day #9. Urine culture grew same organism as blood. Repeat blood cx to check for clearance Status: Acute (3) Urinary tract infection: Secondary to ESBL. See above. Status: Acute Qualifiers: Urinary tract infection type: catheter-associated UTI Indwelling urinary catheter type: indwelling urethral catheter Encounter type: initial encounter Qualified Code(s): T83.511A - Infection and inflammatory reaction due to indwelling urethral catheter, initial encounter; N39.0 - Urinary tract infection, site not specified (4) COPD (chronic obstructive pulmonary disease): Improved Consistent with an element of acute exacerbation Continue prednisone 40 mg daily Pulmonary toilet every 4 hours Status: Chronic Qualifiers: COPD type: unspecified COPD Qualified Code(s): J44.9 - Chronic obstructive pulmonary disease, unspecified (5) Chronic kidney disease, stage 3: Monitor renal function closely Acute kidney injury superimposed on chronic kidney disease. This is improved with diuresis. Status: Chronic Qualifiers: Chronic kidney disease stage 3 subtype: stage 3b (GFR 30-44) Qualified Code(s): N18.32 - Chronic kidney disease, stage 3b (6) Hospice program care: From my understanding hospice may be declining him now. Home health has been arranged. Status: Acute Additional A&P Information History of chronic indwelling urinary catheter Allow natural Heparin for DVT prophylaxis Attestations Medical Necessity Statement*: ongoing need for iv abx Coding Level of Care Code Acute Pet Ambassador for [facility] Fwd Diagnoses CHF exacerbation I50.33 Heart failure type: diastolic Bacteremia R78.81 Urinary tract infection T83.511A; N39.0 Urinary tract infection type: catheter-associated UTI Indwelling urinary catheter type: indwelling urethral catheter Encounter type: initial encounter COPD (chronic obstructive pulmonary disease) J44.9 COPD type: unspecified COPD Chronic kidney disease, stage 3 N18.32 Chronic kidney disease stage 3 subtype: stage 3b (GFR 30-44) Hospice program care Z51.5
[2021-01-24 12:34] LABS: Glucose Point of Care 248 mg/dL (70-110)
[2021-01-24] MEDS: HYDROcodone-acetaminophen 5-325 mg Tablet 1 TAB PO ×2 (13:54→20:39)
[2021-01-24] MEDS: FUROsemide 10 mg/mL SDV 4mL 40 MG IVP (16:34)
[2021-01-24 17:09] LABS: Glucose Point of Care 337 mg/dL (70-110)
[2021-01-24 20:08] LABS: Glucose Point of Care 315 mg/dL (70-110)
[2021-01-24] MEDS: oxybutynin 5 mg Tablet PO (20:39)
[2021-01-24] MEDS: sertraline 50 mg Tablet PO (20:39)
[2021-01-25] VITALS (14 sets, daily range): BP systolic 99–151; BP diastolic 63–88; PULSE 76–107; RESP 16–24; TEMP 36.5–36.9; O2SAT 92–99
[2021-01-25] MEDS: FUROsemide 10 mg/mL SDV 4mL 40 MG IVP ×2 (00:03→11:13)
[2021-01-25] MEDS: ipratropium-albuterol 3 mL Neb INHALATION ×5 (03:19→23:41)
[2021-01-25] MEDS: heparin 5,000 unit/mL INJ 1 mL 5000 UNIT SUBCUT ×2 (04:36→18:03)
[2021-01-25] MEDS: pantoprazole DR 40 mg Tablet PO (04:37)
[2021-01-25] MEDS: HYDROcodone-acetaminophen 5-325 mg Tablet 1 TAB PO ×3 (04:37→21:45)
[2021-01-25 06:33] LABS: Glucose Point of Care 149 mg/dL (70-110)
[2021-01-25] MEDS: aspirin 81 mg Chew Tablet PO (09:03)
[2021-01-25] MEDS: potassium chloride ER 20 mEq Tablet PO (09:03)
[2021-01-25] MEDS: predniSONE 20 mg Tablet 40 MG PO (09:03)
[2021-01-25] MEDS: metoprolol tartrate 25 mg Tablet 12.5 MG PO ×2 (09:03→21:44)
[2021-01-25] MEDS: gabapentin 300 mg Capsule PO ×3 (09:03→21:44)
[2021-01-25 12:27] LABS: Glucose Point of Care 248 mg/dL (70-110)
--- NOTE | 2021-01-25 13:34 | PM.PN ---
Subjective Subjective: Interval history: No acute interim events, lower extremity edema is improving after increasing Lasix dose. Urine output at 3 L. Medications: Reviewed: Yes Vitals/I&O/Wt Last Vital Signs Temp 98.2 F 01/25/21 11:35 Pulse 86 01/25/21 11:35 Resp 18 01/25/21 11:35 BP 124/80 01/25/21 11:35 Pulse Ox 97 01/25/21 11:35 01/24/21 01/25/21 01/25/21 22:59 06:59 14:59 Intake Total 460 / 1260 200 / 1460 440 / 440 Output Total 2049 2300 / 4350 650 / 650 Balance -1590 / -790 -2100 / -2890 -210 / -210 Physical Exam Narrative: EXAM NARRATIVE: GEN: Awake, alert and oriented, no acute distress CVS: S1S2 N RS: B/L crackles lung bases Abd: Soft, nt/nd , bs+ SINK CUTTER: no focal neuro deficits Urinary Catheter Management^: Drake: Cath Placed During This Visit: yes Reason for Continuing Indwelling Catheter: Chronic Indwelling Urinary Catheter on Admission Urinary Catheter Date of Insertion: 01/17/21 Urinary Catheter Time of Insertion: 15:10 Data : 01/24/21 08:35 01/24/21 08:35 Micro: Microbiology 01/24/21 11:25 Blood Culture - Preliminary Blood NEGATIVE TO DATE A&P Assessment and plan (1) CHF exacerbation: increasing LE edema and rales on exam. Continue lasix to 40mg iv q12h monitor urine output Continue fluid restriction Consistent with acute diastolic heart failure Recheck electrolytes tomorrow Status: Resolved Qualifiers: Heart failure type: diastolic Qualified Code(s): I50.33 - Acute on chronic diastolic (congestive) heart failure (2) Bacteremia: 1/ bottles with ESBL. Urine showing ESBL. Currently on Primaxin. Secondary to difficulty arranging any kind of IV outpatient antibiotics he will be getting this inpatient. He will receive 10 days IV. Today is day #9. Urine culture grew same organism as blood. Repeat blood cx to check for clearance Status: Acute (3) Urinary tract infection: Secondary to ESBL. See above. Status: Acute Qualifiers: Urinary tract infection type: catheter-associated UTI Indwelling urinary catheter type: indwelling urethral catheter Encounter type: initial encounter Qualified Code(s): T83.511A - Infection and inflammatory reaction due to indwelling urethral catheter, initial encounter; N39.0 - Urinary tract infection, site not specified (4) COPD (chronic obstructive pulmonary disease): Improved Consistent with an element of acute exacerbation Continue prednisone 40 mg daily Pulmonary toilet every 4 hours Status: Chronic Qualifiers: COPD type: unspecified COPD Qualified Code(s): J44.9 - Chronic obstructive pulmonary disease, unspecified (5) Chronic kidney disease, stage 3: Monitor renal function closely Acute kidney injury superimposed on chronic kidney disease. This is improved with diuresis. Status: Chronic Qualifiers: Chronic kidney disease stage 3 subtype: stage 3b (GFR 30-44) Qualified Code(s): N18.32 - Chronic kidney disease, stage 3b (6) Hospice program care: From my understanding hospice may be declining him now. Home health has been arranged. Status: Acute Additional A&P Information History of chronic indwelling urinary catheter Dispo: D.c with Allow natural Heparin for DVT prophylaxis Attestations Medical Necessity Statement*: ongoing need for iv abx, iv diuretics Coding Level of Care Code Acute Case Consultant for g Fwd Diagnoses CHF exacerbation I50.33 Heart failure type: diastolic Bacteremia R78.81 Urinary tract infection T83.511A; N39.0 Urinary tract infection type: catheter-associated UTI Indwelling urinary catheter type: indwelling urethral catheter Encounter type: initial encounter COPD (chronic obstructive pulmonary disease) J44.9 COPD type: unspecified COPD Chronic kidney disease, stage 3 N18.32 Chronic kidney disease stage 3 subtype: stage 3b (GFR 30-44) Hospice program care Z51.5
[2021-01-25 17:17] LABS: Glucose Point of Care 268 mg/dL (70-110)
[2021-01-25 21:16] LABS: Glucose Point of Care 275 mg/dL (70-110)
[2021-01-25] MEDS: sertraline 50 mg Tablet PO (21:45)
[2021-01-26] VITALS (12 sets, daily range): BP systolic 114–149; BP diastolic 76–89; PULSE 83–110; RESP 16–22; TEMP 36.4–36.8; O2SAT 83–98
[2021-01-26] MEDS: FUROsemide 10 mg/mL SDV 4mL 40 MG IVP (00:48)
[2021-01-26] MEDS: ipratropium-albuterol 3 mL Neb INHALATION ×3 (03:05→12:06)
[2021-01-26] MEDS: heparin 5,000 unit/mL INJ 1 mL 5000 UNIT SUBCUT (04:58)
[2021-01-26] MEDS: pantoprazole DR 40 mg Tablet PO (04:59)
[2021-01-26 06:43] LABS: Glucose Point of Care 178 mg/dL (70-110)
[2021-01-26] MEDS: gabapentin 300 mg Capsule PO (08:49)
[2021-01-26] MEDS: aspirin 81 mg Chew Tablet PO (08:49)
[2021-01-26] MEDS: metoprolol tartrate 25 mg Tablet 12.5 MG PO (08:49)
[2021-01-26] MEDS: potassium chloride ER 20 mEq Tablet PO (08:49)
[2021-01-26] MEDS: predniSONE 20 mg Tablet 40 MG PO (08:49)
[2021-01-26 10:08] LABS: Anion Gap 16.9 (5-19); Blood Urea Nitrogen 58 mg/dL (8-23); Calcium 9.5 mg/dL (8.5-10.5); Carbon Dioxide 39 mmol/L (22-29); Chloride 83 mmol/L (98-107); Glucose 354 mg/dL (65-115); Osmolality Calculated 310 mOsm/kg (285-295); Potassium 3.9 mmol/L (3.5-5.1); Sodium 135 mmol/L (136-145)
--- NOTE | 2021-01-26 10:39 | P.DS_ITS ---
Discharge Providers Date of Admission: 01/17/21 04:04 Date of Discharge: January 26, 2021 Attending Provider at Admission: Maia Barrera MD Attending Provider at Discharge: Marlon Castellon MD Primary Care Provider: Erik Adkins DO Diagnoses at Discharge Discharge Diagnosis (1) CHF exacerbation: Status: Resolved Qualifiers: Heart failure type: diastolic Qualified Code(s): I50.33 - Acute on chronic diastolic (congestive) heart failure (2) Bacteremia: Status: Acute (3) Urinary tract infection: Status: Acute Qualifiers: Encounter type: initial encounter Indwelling urinary catheter type: indwelling urethral catheter Urinary tract infection type: catheter-associated UTI Qualified Code(s): T83.511A - Infection and inflammatory reaction due to indwelling urethral catheter, initial encounter; N39.0 - Urinary tract infection, site not specified (4) COPD (chronic obstructive pulmonary disease): Status: Chronic Qualifiers: COPD type: unspecified COPD Qualified Code(s): J44.9 - Chronic obstructive pulmonary disease, unspecified (5) Chronic kidney disease, stage 3: Status: Chronic Qualifiers: Chronic kidney disease stage 3 subtype: stage 3b (GFR 30-44) Qualified Code(s): N18.32 - Chronic kidney disease, stage 3b (6) Hospice program care: Status: Acute Reason for Visit Reason for Visit: Not doing good Hospital Course Hospital Course Mr. Farnsworth is an 80-year-old white male who presented to the hospital not feeling good. There was concerns he had a UTI, and blood culture ultimately grew out 1/4 bottles of ESBL with same sensitivities as the urine culture that was obtained. He was placed on Primaxin from the start of his hospital stay. During his hospital stay it was apparent he had an exacerbation of CHF as well as COPD exacerbation. He was placed on Lasix, converted to IV treatment while in the hospital as well as prednisone and frequent breathing treatments for his COPD exacerbation. With this he did well. He was on hospice entering the hospital, but they indicated they were taking him off service. Secondary to his ESBL bacteremia and inability to get services for IV antibiotics as an outpatient he was given 10 days IV in the hospital prior to discharge. At time of discharge she was afebrile, his blood sugars were elevated during his hospital stay, secondary to prednisone that was being used. On discharge she will start Metformin for his diabetes(previous hemoglobin A1c greater than 7) and have this rechecked as an outpatient. Likely sugars will decrease as his prednisone dose will be reduced back to baseline of 10 mg daily. Repeat cultures were negative to date at time of discharge. Physical Exam Narrative: EXAM NARRATIVE: General exam no apparent distress Neck is supple no lymphadenopathy or thyromegaly Cardiovascular regular rate and rhythm without murmur Lungs a few faint expiratory wheezes Abdomen is soft nontender with positive bowel sounds Extremities no cyanosis clubbing or edema Urinary Catheter Management^: Drake: Cath Placed During This Visit: yes Reason for Continuing Indwelling Catheter: Chronic Indwelling Urinary Catheter on Admission Urinary Catheter Date of Insertion: 01/17/21 Urinary Catheter Time of Insertion: 15:10 Discharge Data Data Completed and Pending: Completed Studies During Hospitalization Category Date Time Status XR chest 1V saniya ble [id number] Stat Exams 01/16/21 20:19 [place] [id number] Routin e Ultrasound 01/17/21 06:34 Completed Pending at discharge Category Date Time Status Blood Culture Sta t Lab 01/24/21 10:58 Ordered Labs from last 24 hours 01/26/21 01/26/21 01/25/21 09:32 06:28 21:12 Sodium 135 L Potassium 3.9 Chloride 83 L Carbon Dioxide 39 H Anion Gap 16.9 BUN 58 H Creatinine 2.1 H GFR Calculation Not Reportable Glucose 354 H POC Glucose 178 H 275 H Calculated Osmolal ity 310 H Calcium 9.5 01/25/21 01/25/21 16:58 11:39 Sodium Potassium Chloride Carbon Dioxide Anion Gap BUN Creatinine GFR Calculation Glucose POC Glucose 268 H 248 H Calculated Osmolal ity Calcium Vitals: Last Vital Signs Temp 97.5 F L 01/26/21 08:00 Pulse 110 H 01/26/21 08:52 Resp 18 01/26/21 08:52 BP 149/89 01/26/21 08:00 Pulse Ox 98 01/26/21 08:52 Discharge Plan Discharge Patient Disposition: Home Condition: Stable Prescriptions: New metoprolol tartrate 25 mg Tablet 12.5 mg PO BID@0900,2100 Qty: 30 RF: 0 furosemide 40 mg Tablet 60 mg PO DAILY@0800 Qty: 45 RF: 0 gabapentin [Neurontin] 100 mg capsule 100 mg PO TID Qty: 90 RF: 0 budesonide 0.5 mg/2 mL suspension for nebulization 0.5 mg inhalation BID Qty: 60 RF: 0 ipratropium-albuterol 0.5 mg-3 mg(2.5 mg base)/3 mL solution for nebulization 3 ml inhalation Q6H Qty: 180 RF: 0 metformin 500 mg tablet 500 mg PO BID Qty: 60 RF: 0 Continued ipratropium-albuterol 0.5 mg-3 mg(2.5 mg base)/3 mL solution for nebulization 2.5 ml INHALATION Q4H PRN (Reason: Shortness Of Breath Or Wheezing) RF: 0 Tylenol Extra Strength 500 mg Tablet 1,000 mg PO PRN RF: 0 prednisone 10 mg tablet 10 mg PO DAILY Qty: 30 RF: 0 Xanax 0.5 mg Tablet 0.5 mg PO Q6H PRN (Reason: Anxiety) 7 Days Qty: 28 RF: 0 pantoprazole 40 mg tablet,delayed release (DR/EC) 40 mg PO QAM Qty: 30 RF: 0 lidocaine 5 % adhesive patch,medicated See Rx Instructions .ROUTE .COMPLEX Qty: 30 RF: 0 promethazine 25 mg tablet 25 mg PO Q6H PRN (Reason: Nausea And Vomiting) Qty: 10 RF: 0 sertraline 50 mg Tablet 50 mg PO BEDTIME Qty: 30 RF: 0 potassium chloride 20 mEq tablet extended release 20 meq PO DAILY Qty: 30 RF: 0 Changed aspirin 81 mg tablet,delayed release (DR/EC) 81 mg PO DAILY Qty: 30 RF: 0 Discontinued furosemide [Lasix] 20 mg tablet 40 mg PO QAM RF: 0 tamsulosin 0.4 mg capsule 0.4 mg PO DAILY RF: 0 gabapentin 300 mg capsule 300 mg PO TID RF: 0 oxybutynin chloride 5 mg tablet 5 mg PO TID RF: 0 albuterol sulfate 2.5 mg /3 mL (0.083 %) Solution For Nebulization 2.5 mg INHALATION Q4H PRN (Reason: Shortness Of Breath) RF: 0 Discharge Orders: Discharge Order (Routine); Ordered 01/26/21 Ordered By: Marlon Castellon Referrals: [facility] ([facility]) [Outside] Erik Adkins DO [Primary Care Provider] - 02/02/21 10:00 am (CBC and BMP on follow-up Evaluation of diabetes, and further increases of medication as needed as patient's prednisone dose will be lower.) Discharge Diet: Cardiac and Diabetic Discharge Activity: Increase activity as tolerated Patient Instructions: Opioid Safety Activity Restrictions/Additional Instructions: Keep Drake catheter in at discharge Home health Please clarify if all medicines need refilled prior to discharge, and he needs meds to beds Discharge Attestations Time Spent in Discharge Care*: greater than 30 min Status at Discharge: Cognitive status at discharge: cognitively intact , Behavioral status at discharge: cooperative , Quality Metrics Clinical Quality Measures During this hospital stay, did patient experience: None Coding Level of Care Code Acute [facility] DC note Diagnoses CHF exacerbation I50.33 Heart failure type: diastolic Bacteremia R78.81 Urinary tract infection T83.511A; N39.0 Encounter type: initial encounter Indwelling urinary catheter type: indwelling urethral catheter Urinary tract infection type: catheter-associated UTI COPD (chronic obstructive pulmonary disease) J44.9 COPD type: unspecified COPD Chronic kidney disease, stage 3 N18.32 Chronic kidney disease stage 3 subtype: stage 3b (GFR 30-44) Hospice program care Z51.5
[2021-01-26 11:45] LABS: Glucose Point of Care 280 mg/dL (70-110)
--- NOTE | 2021-01-26 11:47 | PC.SOCIAL ---
IMM Upated Updated pt of medicare right. Verbalized understanding. Placed copy at bedside, and initialed, timed, dated copy in chart.
--- NOTE | 2021-01-26 11:48 | PC.NURSE ---
updated patient's daughter on patient's condition.
--- NOTE | 2021-01-26 15:22 | PC.NURSE ---
Patient taken home via gurney by EMS.
--- NOTE | 2021-01-27 10:28 | PC.SOCIAL ---
BETZY submitted for lidocaine patches. Await determination and updated [facility] at [facility]
--- NOTE | 2021-01-27 10:29 | PC.SOCIAL ---
Right after last note made determination received with approval for Lidocaine patches. Notified Karin at outpatient pharmacy. She will notify patient.
--- NOTE | 2021-02-06 10:07 | PC.SOCIAL ---
Talked with Dr Castellon and patient did not make it to the appt to establish with new primary care provider. It is my understanding it was going to be Dr Cerrato. Could not reach the patient. Called Daughter Isabela who indicates she helps care for him. Explained that it was communicated Dr Castellon would follow patient until he was seen by new provider on 02/02. This did not happen. Dr Rhodes will cover up till 02/16/2021 to allow time for patient to get another appt. and be seen. Recommended utilizing [facility] to get to appt. Provided phone number for Dr Dao and Dr Martinez office as options. Daughter verbalized understanding. Called Imer at [facility] and discussed all information above. Patient can explore the option of going back on Hospice since he has been on it previously. Imer indicates they plan to discuss this option with patient. Updated Dr Castellon that this was communicated.
== END 2021-01-26 15:24 | disposition home health service (06) | DRG 291 ==
LOC: ER 21:36 → MEDSURG 01-17 04:17
PROVIDERS: Internal Medicine; Student in an Organized Health Care Education/Training Program; Admitting Provider Hospitalist; Emergency Provider Emergency Medicine; PCP Family Medicine; Visit Provider Internal Medicine
DX: I13.0 Hypertensive heart and chronic kidney disease with heart failure and stage 1 through stage 4 chronic kidney disease, or unspecified chronic kidney disease (principal); I50.33 Acute on chronic diastolic (congestive) heart failure; T83.518A Infection and inflammatory reaction due to other urinary catheter, initial encounter; J44.1 Chronic obstructive pulmonary disease with (acute) exacerbation; N13.8 Other obstructive and reflux uropathy; T83.511A Infection and inflammatory reaction due to indwelling urethral catheter, initial encounter; N18.32 Chronic kidney disease, stage 3b; E11.22 Type 2 diabetes mellitus with diabetic chronic kidney disease; I35.0 Nonrheumatic aortic (valve) stenosis; Z87.440 Personal history of urinary (tract) infections; N40.1 Benign prostatic hyperplasia with lower urinary tract symptoms; N52.9 Male erectile dysfunction, unspecified; M48.061 Spinal stenosis, lumbar region without neurogenic claudication; M19.90 Unspecified osteoarthritis, unspecified site; G89.29 Other chronic pain; I48.0 Paroxysmal atrial fibrillation; Z51.5 Encounter for palliative care; B96.20 Unspecified Escherichia coli [E. coli] as the cause of diseases classified elsewhere; Z66 Do not resuscitate; Z96.0 Presence of urogenital implants; Y73.1 Therapeutic (nonsurgical) and rehabilitative gastroenterology and urology devices associated with adverse incidents
CPT/HCPCS: 36415; 36416; 36600; 51702; 71045; 80048; 80053; 80202; 81001; 82803; 82962; 83605; 83735; 83880; 84100; 84484; 85025; 86140; 87040; 87077; 87086; 87186; 87205; 87426; 93005; 93971; 94640; 96365; 96367; 96372; 97116; 97161; 97530; 99285; J0743; J1644; J1815; J1940; J2405; J2543; J3370; J7050; J7512

== ENCOUNTER 2021-02-17 18:23 | Emergency (ER) | payer MEDICARE, MEDICAID, SELFPAY ==
[2021-02-17 18:25] VITALS: BP 136/86; PULSE 111; RESP 22; O2SAT 94
--- NOTE | 2021-02-17 18:31 | W.ED.GENADLT ---
HPI - General Adult General: Chief complaint: Urogenital-Male Stated complaint: PENILE BLEEDING Time Seen by Provider: 02/17/21 18:27 History of Present Illness: HPI narrative: Mr Farnsworth is an 79 linear gentleman with significant past medical history of diabetes, CBD , CKD, and chronic indwelling Borja catheter who is currently on Hospice who presents to the merge department due to concern over Borja catheter. reportedly he has been at his based on health including overall feeling and denies any new changes. He is chronically on oxygen and is on Hospice secondary to end stage COPD apparently . his Hospice nurse Visited today and attempted to replace his Borja catheter appeared he was referred to the emergency department as she was concerned about not being able to insert Borja catheter and urethral trauma with blood from the meatus. the patient did have some pain with attempted replacement however is currently pain free. There are no other specific provoking, exacerbating, or alleviating factors identified as the patient is at his baseline. Review of Systems General: Reports: 10 or more systems reviewed and unremarkable except in HPI and below Narrative: CONSTITUTIONAL: denies fever, fatigue, weakness EYES - denies pain, denies loss of vision EARS - denies ear issues. NOSE - denies congestion or rhinorrhea. THROAT - denies sore throat or difficulty swallowing. CARDIOVASCULAR - denies chest pain and palpitations RESPIRATORY - baseline respiratory status with supplemental O2 GASTROINTESTINAL - denies abdominal pain, no nausea vomiting, no changes in bowel habits GENITOURINARY - see hpi MUSCULOSKELETAL- denies deformity or pain SKIN - denies rashes or new changed skin lesions NEUROLOGIC - denies focal weakness or sensory changes HEMATOLOGIC/LYMPHATIC - does have easy bleeding/bruising [facility], [facility] ED PFS: Medical History (Updated 02/17/21 @ 19:04 by Blake Burkett MD) Aortic stenosis, mild BPH with urinary obstruction CHF (congestive heart failure) Chronic indwelling Borja catheter Chronic kidney disease, stage 3 COPD (chronic obstructive pulmonary disease) COPD (chronic obstructive pulmonary disease) Diabetes mellitus, type II Erectile dysfunction History of ESBL E. coli infection urine, history of ESBL E. 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 Social History Smoking and tobacco status: never smoked Alcohol intake: never Marital status: / Current occupational status: retired and disabled Physical Exam Narrative: EXAM NARRATIVE: GENERAL/CONSTITUTIONAL - chronically ill-appearing. No acute distress. Eyes - no conjunctival injection. no scleral icterus ENMT - Atraumatic external nose and ears. NECK - supple. trachea midline CARDIOVASCULAR - tachycardic rate and regular rhythm. RESPIRATORY - course breath sounds throughout ABDOMEN/GI - Nontender/Nondistended. No tenderness to percussion or evidence of peritonitis - venous blood noted around glans. No external visible trauma to glan, shaft, foreskin, or urethra. Minimal expressed blood with palpation. no lacerations or tears appreciated. SKIN - Warm, Dry, pale NEURO - alert and appropriately oriented. PSYCH - Appropriate mood and affect Course ED course: - Monitor applied and vital signs obtained. - The patient was seen and evaluated me at bedside. - Initial evaluation was notable for chronically ill appearance. as noted above. Bleeding is minimal and likely related to urethral trauma from borja insertion. - 16 fr borja replaced with satisfactory urine return, initially pink tinged though cleared rapidly. Foreskin replaced over glans. Patient has no complaints. - The most likely cause for the patient's symptoms is minor urethral trauma and borja concern. - The results of ED evaluation were discussed with the patient including the need for follow up with healthcare team/hospice nurse. Return precautions, follow up plan were discussed with the patient. The patient verbalized understanding and felt safe for discharge. - Upon serial reexamation the patient's condition was similar. They were discharged without incident or clinical deterioration. Vital Signs: Vital signs: Vital Signs Pulse Rate 111 H 02/17/21 18:25 Respiratory Rate 22 H 02/17/21 18:25 Blood Pressure 136/86 02/17/21 18:25 Pulse Oximetry 94 02/17/21 18:25 MDM - General Adult Medical Records: Attestation: I reviewed the patient's medical records. Lab Data: Attestation: I reviewed the patient's lab results. Discharge Plan Discharge Patient Disposition: Home Clinical Impression: Complication of Borja catheter, Hematuria, Trauma of urethra Condition: Serious Prescriptions: No Action ipratropium-albuterol 0.5 mg-3 mg(2.5 mg base)/3 mL solution for nebulization 2.5 ml INHALATION Q4H PRN (Reason: Shortness Of Breath Or Wheezing) RF: 0 Tylenol Extra Strength 500 mg Tablet 1,000 mg PO PRN RF: 0 furosemide 40 mg Tablet 60 mg PO DAILY@0800 Qty: 45 RF: 0 metoprolol tartrate 25 mg Tablet 12.5 mg PO BID@0900,2100 Qty: 30 RF: 0 ipratropium-albuterol 0.5 mg-3 mg(2.5 mg base)/3 mL solution for nebulization 3 ml inhalation Q6H Qty: 180 RF: 0 budesonide 0.5 mg/2 mL suspension for nebulization 0.5 mg inhalation BID Qty: 60 RF: 0 metformin 500 mg tablet 500 mg PO BID Qty: 60 RF: 0 Neurontin 100 mg capsule 100 mg PO TID Qty: 90 RF: 0 prednisone 10 mg tablet 10 mg PO DAILY Qty: 30 RF: 0 aspirin 81 mg tablet,delayed release (DR/EC) 81 mg PO DAILY Qty: 30 RF: 0 Xanax 0.5 mg Tablet 0.5 mg PO Q6H PRN (Reason: Anxiety) 7 Days Qty: 28 RF: 0 pantoprazole 40 mg tablet,delayed release (DR/EC) 40 mg PO QAM Qty: 30 RF: 0 lidocaine 5 % adhesive patch,medicated See Rx Instructions .ROUTE .COMPLEX Qty: 30 RF: 0 promethazine 25 mg tablet 25 mg PO Q6H PRN (Reason: Nausea And Vomiting) Qty: 10 RF: 0 sertraline 50 mg Tablet 50 mg PO BEDTIME Qty: 30 RF: 0 potassium chloride 20 mEq tablet extended release 20 meq PO DAILY Qty: 30 RF: 0 Percocet 5-325 mg tablet 1 tab PO Q6H PRN (Reason: pain) Qty: 20 RF: 0 Lomotil 2.5-0.025 mg tablet 1 tab PO BID PRN (Reason: diarrhea) Qty: 7 RF: 0 hydrocodone-acetaminophen 5-325 mg tablet 1 tab PO TID PRN (Reason: pain) Qty: 20 RF: 0 Lantus Solostar U-100 Insulin 100 unit/mL (3 mL) insulin pen 10 unit SUBCUT QPM Qty: 15 RF: 0 (DME) blood-glucose meter Kit See Rx Instructions .Route Qty: 1 RF: 0 (DME) Lite Touch Insulin Pen [place] 31 gauge x 1/4 needle See Rx Instructions .Route Qty: 50 RF: 0 hydrocodone-acetaminophen 5-325 mg tablet 1 tab PO Q6H PRN (Reason: pain) Qty: 20 RF: 0 Xanax 0.5 mg tablet 0.5 mg PO TID PRN (Reason: anxiety) Qty: 20 RF: 0 Discharge Orders: Discharge ED (Routine); Ordered 02/17/21 Ordered By: Blake Burkett Referrals: Erik Adkins, [Primary Care Provider] - Discharge Diet: Usual diet Discharge Activity: Resume usual activity Patient Instructions: Hematuria - Male, Borja Catheter Placement and Care (ED) Activity Restrictions/Additional Instructions: Thank you for visiting the emergency department. You were seen and evaluated for a displaced Borja catheter. This was replaced. It does appear that, from prior attempts, there was some urethral trauma and mild bleeding which will likely resolve on its own. Please return the emergency department if you have continued bleeding, or passing clots in your urine, are unable to pass urine into the Borja catheter, or anything else that you are concerned about and feel needs emergency department evaluation. Coding Level of Care Code ED Supervising Appraiser for Andriy Dhillon
== END 2021-02-17 20:54 | disposition home or self-care (01) ==
PROVIDERS: Emergency Provider Emergency Medicine; PCP Family Medicine
DX: T83.9XXA Unspecified complication of genitourinary prosthetic device, implant and graft, initial encounter (principal); S37.39XA Other injury of urethra, initial encounter; R31.9 Hematuria, unspecified; J44.9 Chronic obstructive pulmonary disease, unspecified; I13.0 Hypertensive heart and chronic kidney disease with heart failure and stage 1 through stage 4 chronic kidney disease, or unspecified chronic kidney disease; N18.30 Chronic kidney disease, stage 3 unspecified; I50.9 Heart failure, unspecified; E11.22 Type 2 diabetes mellitus with diabetic chronic kidney disease; I48.0 Paroxysmal atrial fibrillation; Z99.81 Dependence on supplemental oxygen; Y84.6 Urinary catheterization as the cause of abnormal reaction of the patient, or of later complication, without mention of misadventure at the time of the procedure
CPT/HCPCS: 51702; 99282

== ENCOUNTER 2021-02-23 15:08 | Outpatient (CLI) | payer MEDICARE, MEDICAID, SELFPAY ==
[2021-02-23 16:33] LABS: Anion Gap 14.7 (5-19); Blood Urea Nitrogen 21 mg/dL (8-23); Calcium 9.5 mg/dL (8.5-10.5); Carbon Dioxide 35 mmol/L (22-29); Chloride 94 mmol/L (98-107); Glucose 192 mg/dL (65-115); Magnesium 1.6 mg/dL (1.7-2.3); Osmolality Calculated 296 mOsm/kg (285-295); Potassium 4.7 mmol/L (3.5-5.1); Sodium 139 mmol/L (136-145)
== END 2021-02-23 15:09 | disposition home or self-care (01) ==
LOC: LAB 15:12
PROVIDERS: PCP Family Medicine; Visit Provider Internal Medicine Medical Oncology
DX: I13.0 Hypertensive heart and chronic kidney disease with heart failure and stage 1 through stage 4 chronic kidney disease, or unspecified chronic kidney disease (principal)
CPT/HCPCS: 80048; 83735

== ENCOUNTER 2021-06-13 11:38 | Observation (INO) | payer MEDICARE, SELFPAY ==
[2021-06-13 11:41] VITALS: BP 143/85; PULSE 117; RESP 24; TEMP 36.4; O2SAT 94; BMI 30.4
[2021-06-13 11:55] VITALS: BP 143/85; PULSE 117; RESP 24; TEMP 36.4; O2SAT 94
--- NOTE | 2021-06-13 12:02 | XRR_ITS ---
PROCEDURE INFORMATION: Exam: XR Left Tibia and Fibula Exam date and time: 06/13/2021 12:02 PM Age: 81 years old Clinical indication: Injury or trauma; Blunt trauma; Left; Patient HX: Fall in bathroom C/O les lower leg pain; Additional info: Abrasion TECHNIQUE: Imaging protocol: XR Left tibia and fibula. Views: 2 views. COMPARISON: CR Ankle 3 views, LEFT* [id number] 12/08/2018 3:25 PM FINDINGS: Bones/joints: Chondrocalcinosis and moderate degenerative changes are noted in the knee. No acute fracture or dislocation. Soft tissues: There is diffuse subcutaneous edema. Vasculature: There are vascular calcifications. XR/XR tibia fibula LT 2V [id number] IMPRESSION: No acute bony abnormality is identified. Radiation Dose CTDIVOL = (mGy): DLP = (mGy-cm)
--- NOTE | 2021-06-13 12:02 | XRR_ITS ---
PROCEDURE INFORMATION: Exam: XR Right Elbow Exam date and time: 06/13/2021 12:02 PM Age: 81 years old Clinical indication: Injury or trauma; Blunt trauma (contusions or hematomas); Right; Patient HX: Fall in bathroom C/O les elbow pain TECHNIQUE: Imaging protocol: XR Right elbow. Views: 1 or 2 views. COMPARISON: CR Wrist 3 views, RIGHT* [id number] 12/08/2018 3:23 PM FINDINGS: Bones/joints: There are diffuse moderate to severe degenerative changes and extensive chondrocalcinosis in the elbow. There is a small elbow joint effusion. No acute fracture or dislocation. Soft tissues: There is mild subcutaneous edema dorsal forearm. XR/XR elbow RT 2V [id number] IMPRESSION: Small elbow joint effusion with severe degenerative changes in the elbow joint and extensive chondrocalcinosis. No acute bony abnormality. Radiation Dose CTDIVOL = (mGy): DLP = (mGy-cm)
--- NOTE | 2021-06-13 12:02 | XRR_ITS ---
PROCEDURE INFORMATION: Exam: XR Right Tibia and Fibula Exam date and time: 06/13/2021 12:02 PM Age: 81 years old Clinical indication: Injury or trauma; Blunt trauma; Right; Patient HX: Fall in bathroom C/O les lower leg pain TECHNIQUE: Imaging protocol: XR Right tibia and fibula. Views: 2 views. COMPARISON: CR Knee 2 views, RIGHT [id number] 10/29/2018 6:32 PM FINDINGS: Bones/joints: No acute fracture or dislocation. Moderate degenerative changes in the knee with chondrocalcinosis are noted. Soft tissues: There is diffuse subcutaneous edema. Vasculature: There are vascular calcifications. XR/XR tibia fibula RT 2V [id number] IMPRESSION: No acute bony abnormality. Radiation Dose CTDIVOL = (mGy): DLP = (mGy-cm)
--- NOTE | 2021-06-13 12:02 | XRR_ITS ---
PROCEDURE INFORMATION: Exam: XR Left Elbow Exam date and time: 06/13/2021 12:02 PM Age: 81 years old Clinical indication: Injury or trauma; Blunt trauma (contusions or hematomas); Left; Patient HX: Fall in bathroom C/O les elbow pain TECHNIQUE: Imaging protocol: XR Left elbow. Views: 1 or 2 views. COMPARISON: No relevant prior studies available. FINDINGS: Tubes, catheters and devices: There is an IV catheter in the antecubital fossa. Bones/joints: There is a small elbow joint effusion. Severe osteoarthritic changes are noted in the elbow joint and there is also extensive chondrocalcinosis. No acute fracture or dislocation is identified. Soft tissues: Normal. XR/XR elbow LT 2V [id number] IMPRESSION: Small elbow joint effusion but there are severe degenerative changes and chondrocalcinosis. No acute bony abnormality is identified. Radiation Dose CTDIVOL = (mGy): DLP = (mGy-cm)
--- NOTE | 2021-06-13 12:05 | CTR_ITS ---
PROCEDURE INFORMATION: Exam: CT Head Without Contrast Exam date and time: 06/13/2021 12:05 PM Age: 81 years old Clinical indication: Injury or trauma; Fall; Blunt trauma (contusions or hematomas) TECHNIQUE: Imaging protocol: Computed tomography of the head without contrast. Radiation optimization: All CT scans at this facility use at least one of these dose optimization techniques: automated exposure control; mA and/or kV adjustment per patient size (includes targeted exams where dose is matched to clinical indication); or iterative reconstruction. COMPARISON: CT head wo con* [id number] 12/08/2018 12:27 PM RADIATION DOSE METRICS: Total DLP (mGy-cm): 1004.89 FINDINGS: Brain: There is volume loss and periventricular low density compatible with chronic small vessel disease changes. There is no acute hemorrhage, edema or mass effect. Stable extensive atherosclerotic calcifications at the skull base and carotid arteries. Cerebral ventricles: There is unchanged ventricular prominence compatible with ex vacuo type changes. Paranasal sinuses: There is mild mucosal thickening in the sinuses. Mastoid air cells: There is trace fluid in the left mastoid air cells. Bones/joints: Unremarkable. No acute fracture. Soft tissues: Unremarkable. CT/CT head wo con* [id number] IMPRESSION: No acute intracranial abnormality. Radiation Dose CTDIVOL = (mGy): DLP = 1004.89 (mGy-cm)
--- NOTE | 2021-06-13 12:24 | W.ED.GENADLT ---
HPI - General Adult General: Chief complaint: Fall Stated complaint: WEAKNESS Time Seen by Provider: 06/13/21 11:42 History of Present Illness: HPI narrative: Patient is an 81-year-old male with multiple comorbidities currently on hospice presents emergency room after an episode of fall at home. Patient reports abrasion and pain over the arms bilaterally. Patient denies any source of chest pain, shortness breath, palpitation prior to the fall. Patient says denies any headache or head injuries. Patient has had moderate bleeding from the left forearm. No other focal complaints at this time. EMS was called, patient was brought to the emergency room with his arm wounds in bandage. Conversation with patient's daughter Cathryn, patient has become more confused for the last few days. He is not safe to live at home even with home health. Patient is adamant refusing to have skilled nursing placement. Onset: earlier today Duration:today Location:home Severity:moderate Review of Systems Narrative: Constitutional: No fever, no chills. HEENT: No vision changes CV: No chest pain, no palpitations PULM: no cough, no dyspnea. GI: No abdominal pain, no N/V/D. : No dysuria MSKEL: No muscle pain SKIN: +Laceration over the L forearm, +abrasion over the R forearm NEURO: No headache, no focal weakness. HEME: No visible bruises PSYCH: Normal mood PFSH ED PFSH: Medical History Aortic stenosis, mild BPH with urinary obstruction CHF (congestive heart failure) Chronic indwelling Drake catheter Chronic kidney disease, stage 3 COPD (chronic obstructive pulmonary disease) COPD (chronic obstructive pulmonary disease) Diabetes mellitus, type II Erectile dysfunction History of ESBL E. coli infection urine, history of ESBL E. 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 Social History Smoking and tobacco status: never smoked Alcohol intake: never Marital status: / Current occupational status: retired and disabled Physical Exam Narrative: EXAM NARRATIVE: Head: Atraumatic Eyes: PERRL, conjunctiva without injection ENT: Mucous membrane moist NECK: Supple, ROM intact LUNGS: LCTAB, no crackles/rhonchi CV: RRR ABDOMEN: Soft, nontender in all quadrants EXTREMITY: Normal ROM SKIN: +5cm skin tear over the L lateral forearm, +7 cm laceration with mild bleeding from the R forearm NEURO: Awake and alert, no focal motor deficits PSYCH: Normal mood and affect Course Vital Signs: Vital signs: Vital Signs Temperature 97.6 F 06/13/21 11:55 Pulse Rate 116 H 06/13/21 15:30 Respiratory Rate 22 H 06/13/21 15:30 Blood Pressure 136/69 06/13/21 15:30 Pulse Oximetry 100 06/13/21 15:30 MDM - General Adult MDM Narrative: Medical decision making narrative: 81-year-old male presented to emergency room after an episode of fall earlier today. On exam, patient has skin tear over the right forearm as well as a laceration over the left forearm. X-rays did not show any signs of acute fracture. Left arm laceration was irrigated extensively and closed. Please refer to procedure note for more information. CT negative for any acute finding. The present time, patient is hemodynamically stable, not actively bleeding. Given patient has a hospice status, decision was made in conjunction with patient's daughter Isabela to have patient go home with close follow-up PCP on Tuesday. I have given patient and family instruction to have the sutures removed in 10 to 14 days. UA positive for UTI. S/p ceftriaxone. WBC of 15.4, Cr of 1.3, will admit for UTI management and acute kidney injury. Disposition: Admission Lab Data: Labs: Lab Results 06/13/21 06/13/21 06/13/21 11:51 11:51 11:51 WBC 15.4 10^3/uL H 10 ^3/uL (4.0-10.0) RBC 4.58 10^6/uL 10^6 /uL (4.1-5.3) Hgb 11.3 g/dL L g/dL (11.7-16.6) Hct 37.5 % L % (42.0-52.0) MCV 81.9 fl fl (80-94) MCH 24.7 pg L pg (28.0-34.0) MCHC 30.1 g/dL g/dL (30.0-36.0) RDW 15.5 % H % (12.1-15.1) Plt Count 207 10^3/cmm 10^3 /cmm (130-400) MPV 11.1 fL H fL (7.4-10.4) Neut % (Auto) 88.2 % % Lymph % (Auto) 5.4 % % Amelia % (Auto) 4.5 % % Eos % (Auto) 1.0 % % Baso % (Auto) 0.3 % % Neut # (Auto) 13.57 10^3/uL H 1 0^3/uL (1.8-7.7) Lymph # (Auto) 0.8 10^3/uL 10^3/ uL (0.8-4.8) Amelia # (Auto) 0.7 10^3/uL 10^3/ uL (0.2-0.9) Eos # (Auto) 0.2 10^3/uL 10^3/ uL (0.0-0.8) Baso # (Auto) 0.1 10^3/uL 10^3/ uL (0.0-0.1) Nucleated RBC % (a uto) 0 % % Nucleated RBCs # 0.0 /100WBC /100W BC Sodium 135 mmol/L L mmol /L (136-145) Potassium 4.4 mmol/L mmol/L (3.5-5.1) Chloride 87 mmol/L L mmol/ L (98-107) Carbon Dioxide 34 mmol/L H mmol/ L (22-29) Anion Gap 18.4 (5-19) BUN 25 mg/dL H mg/dL (8-23) Creatinine 1.3 mg/dL H mg/dL (0.7-1.2) GFR Calculation Not Reportable Glucose 242 mg/dL H mg/dL (65-115) Calculated Osmolal ity 292 mOsm/kg mOsm/ kg (285-295) Calcium 9.2 mg/dL mg/dL (8.5-10.5) Urine Color Urine Appearance Urine pH Ur Specific Gravit y Urine Protein Urine Glucose (UA) Urine Ketones Urine Blood Urine Nitrate Urine Bilirubin Urine Urobilinogen Ur Leukocyte Ladi ase Urine RBC Urine WBC Ur Squamous Epith Cells Amorphous Sediment Urine Bacteria Hepatitis A IgM Ab Non-reactive (Nonreactive) Hep Bs Antigen Non-reactive (Nonreactive) Hep B Core IgM Ab Non-reactive (Nonreactive) Hepatitis C Antibo dy Non-reactive (Nonreactive) HIV 1&2 Ab & HIV 1 Ag HIV 1&2 Antibody 06/13/21 06/13/21 11:51 15:55 WBC RBC Hgb Hct MCV MCH MCHC RDW Plt Count MPV Neut % (Auto) Lymph % (Auto) Amelia % (Auto) Eos % (Auto) Baso % (Auto) Neut # (Auto) Lymph # (Auto) Amelia # (Auto) Eos # (Auto) Baso # (Auto) Nucleated RBC % (a uto) Nucleated RBCs # Sodium Potassium Chloride Carbon Dioxide Anion Gap BUN Creatinine GFR Calculation Glucose Calculated Osmolal ity Calcium Urine Color Straw (Yellow) Urine Appearance Hazy A (CLEAR) Urine pH 5 (5-7) Ur Specific Gravit y 1.015 (1.005-1.030) Urine Protein Neg (Negative) Urine Glucose (UA) Norm (Normal) Urine Ketones Negative (Negative) Urine Blood Trace H (Negative) Urine Nitrate Negative (Negative) Urine Bilirubin Neg (Negative) Urine Urobilinogen Norm mg/dL mg/dL (Negative) Ur Leukocyte Ladi ase 2+ H (Negative) Urine RBC None /hpf /hpf (0-2) Urine WBC 25-40 /hpf H /hpf (0-5) Ur Squamous Epith Cells None /hpf /hpf (0-5) Amorphous Sediment Not Reportable Urine Bacteria 3+ /hpf H /hpf (NONE) Hepatitis A IgM Ab Hep Bs Antigen Hep B Core IgM Ab Hepatitis C Antibo dy HIV 1&2 Ab & HIV 1 Ag Non-reactive (Non-Reactiv) HIV 1&2 Antibody Non-reactive (Non-Reactiv) Discharge Plan Discharge Patient Disposition: Admitted As Inpatient Admit Provider: Arsalan Vinson Clinical Impression: Arm laceration, Abrasion of arm, right, Altered mental status, Acute UTI Condition: Stable Discharge Activity: Resume usual activity Coding Level of Care Code ED Animation Director for Andriy Dhillon
[2021-06-13 12:34] LABS: Basophils # 0.1 10^3/uL (0.0-0.1); Basophils % 0.3 %; Eosinophils # 0.2 10^3/uL (0.0-0.8); Hematocrit 37.5 % (42.0-52.0); Hemoglobin 11.3 g/dL (11.7-16.6); Lymphocytes # 0.8 10^3/uL (0.8-4.8); Lymphocytes % 5.4 %; Mean Corpuscular HGB Conc 30.1 g/dL (30.0-36.0); Mean Corpuscular Hemoglobin 24.7 pg (28.0-34.0); Mean Corpuscular Volume 81.9 fl (80-94); Mean Platelet Volume 11.1 fL (7.4-10.4); Monocytes # 0.7 10^3/uL (0.2-0.9); Monocytes % 4.5 %; Neutrophils # 13.57 10^3/uL (1.8-7.7); Neutrophils % 88.2 %; Nucleated Red Blood Cells % 0 %; Platelet Count 207 10^3/cmm (130-400); Red Blood Count 4.58 10^6/uL (4.1-5.3); Red Cell Distribution Width 15.5 % (12.1-15.1); White Blood Count 15.4 10^3/uL (4.0-10.0)
[2021-06-13] MEDS: acetaminophen 500 mg Tablet 1000 MG PO (12:40)
--- NOTE | 2021-06-13 12:46 | PC.NURSE ---
NURSE NOTIFIED THAT PATIENT ARM BLEEDING. ASSESSED PATIENTS ARM, PATIENT ARM BLEEDING WITH POOLING AROUND THE ARM. PATIENT WOUND CLEANED WITH BULKEE DRESSINGS AND DRESSED WITH TELFA AND KERLIX.
[2021-06-13 12:47] LABS: Blood Urea Nitrogen 25 mg/dL (8-23); Calcium 9.2 mg/dL (8.5-10.5); Carbon Dioxide 34 mmol/L (22-29); Chloride 87 mmol/L (98-107); Creatinine Clr Calc Pharmacy 47.9164; Glucose 242 mg/dL (65-115); Osmolality Calculated 292 mOsm/kg (285-295); Sodium 135 mmol/L (136-145)
[2021-06-13 12:50] LABS: Anion Gap 18.4 (5-19); Potassium 4.4 mmol/L (3.5-5.1)
--- NOTE | 2021-06-13 13:06 | XRR_ITS ---
PROCEDURE INFORMATION: Exam: XR Right Forearm Exam date and time: 06/13/2021 1:06 PM Age: 81 years old Clinical indication: Injury or trauma; Bleeding/hemorrhage; Arm, lower; Bilateral; Patient HX: Eval FX after fall TECHNIQUE: Imaging protocol: XR Right forearm. Views: 2 views. COMPARISON: CR Wrist 3 views, RIGHT* [id number] 12/08/2018 3:23 PM FINDINGS: Bones/joints: Normal. Soft tissues: Normal. Vasculature: Moderate calcified peripheral vascular disease. XR/XR forearm RT 2V [id number] IMPRESSION: No acute findings. Radiation Dose CTDIVOL = (mGy): DLP = (mGy-cm)
--- NOTE | 2021-06-13 13:06 | XRR_ITS ---
PROCEDURE INFORMATION: Exam: XR Left Forearm Exam date and time: 06/13/2021 1:06 PM Age: 81 years old Clinical indication: Injury or trauma; Bleeding/hemorrhage; Arm, lower; Bilateral; Patient HX: Eval FX after fall TECHNIQUE: Imaging protocol: XR Left forearm. Views: 2 views. COMPARISON: CR XR elbow LT 2V [id number] 06/13/2021 1:00 PM FINDINGS: Bones/joints: Radiocarpal arthritis. One or more ununited ulnar styloid process accessory ossification centers versus chronic healed nonunion avulsion fractures. Ossification or calcification over the lateral epicondyle of the elbow suggesting possible sequela from lateral epicondylitis. Soft tissues: Normal. XR/XR forearm LT 2V [id number] IMPRESSION: No acute findings. Radiation Dose CTDIVOL = (mGy): DLP = (mGy-cm)
[2021-06-13] MEDS: sodium chloride 0.9% 500 ML IV (13:14)
[2021-06-13] MEDS: tetanus-dipt-pertussis 0.5 mL SDV IM (13:14)
[2021-06-13] MEDS: sodium bicarbonate 8.4% 1 mEq/mL 50mL Syr 50 MEQ IVP (14:05)
--- NOTE | 2021-06-13 14:16 | PC.NURSE ---
PATIENT REPORT CALLED TO MONSTER DHILLONPOULTRY PICKING MACHINE TENDER NURSE FOR [facility]. NURSE MADE AWARE OF SKIN TEARS, DRESSINGS APPLIED, AND TRIP HOME. HOSPICE NURSE WILL BE CALLED WHEN PATIENT LEAVES.
[2021-06-13 14:59] LABS: HIV 1 & 2 Antibody Non-Reactive (Non-Reactiv); HIV 1 & 2 Antigen Non-Reactive (Non-Reactiv); Hepatitis A Antibody IgM Non-Reactive (Nonreactive); Hepatitis B Core IgM Non-Reactive (Nonreactive); Hepatitis B Surface Antigen Non-Reactive (Nonreactive); Hepatitis C Virus Antibody Non-Reactive (Nonreactive)
[2021-06-13 15:30] VITALS: BP 136/69; PULSE 116; RESP 22; O2SAT 100
[2021-06-13 16:16] LABS: Add Urine Microscopic? YES; Bilirubin Urine Neg (Negative); Blood Urine Trace (Negative); Glucose Urine UA Norm (Normal); Ketones Urine Negative (Negative); Leukocyte Esterase Urine 2+ (Negative); Nitrate Urine Negative (Negative); Protein Urine Neg (Negative); Specific Gravity, Urine 1.015 (1.005-1.030); Urine Appearance Hazy (CLEAR); Urine Color Straw (Yellow); Urobilinogen Urine Norm (Negative); pH Urine 5 (5-7)
[2021-06-13 16:17] LABS: Bacteria Urine 3+ /hpf; WBC Urine 25-40 /hpf (0-5)
[2021-06-13 16:18] LABS: Add Urine Culture? Yes
[2021-06-13] MEDS: cefTRIAXone 1,000 MG in sodium chloride 0.9% (plus) 50 ML 100 MG IV (16:59)
--- NOTE | 2021-06-13 17:14 | P.HP_ITS ---
Providers/Chief Complaint Admitting Physician: Arsalan Vinson MD Primary Care Provider: Erik Adkins DO Chief Complaint: WEAKNESS History of Present Illness Vladimir Farnsworth is a 81 year old male who has multiple comorbidities, on home hospice secondary to that, presented to the hospital for weakness, lethargy and a fall. Patient is stating that for last 48 hours he has been experiencing diarrhea which he is attributing to use of a medication(he is unsure of the name). No fever or shortness of breath or chest pain. Patient is stating that he is not very mobile, uses 3 L of oxygen at home, tries to use a walker for ambulation, however yesterday while attempting to use a walker he fell on the floor. Family brought him to the ER, family stating that they are unable to t ulices care of him at home because of his recurrent falls. He has degenerative vertebral disease with radiculopathy has had multiple falls in the past. Family and patient both do not prefer any intermediate. Work-up in the ER did not show any fractures He has a chronic indwelling catheter , with pyuria noted on UA History ESBL And not sure why hepatitis and HIV work-up was done in the ER work-up consistent with MARY BETH, leukocytosis, no signs of sepsis Records reviewed: He has seen Dr. Lezama for palliative care on hospice previously he revoked his hospice benefit when he opted to go to the hospital as well, patient's appetite is variable, poor functional status Has history of generalized weakness poor mobility, diastolic congestive heart failure, COPD, recurrent UTIs, degenerative disease of spine severe in the lumbar region, GERD, chronic anxiety, oxygen dependent COPD Review of Systems Const: Reports: chills, body aches and fatigue Eyes: Denies: change in vision ENMT: Denies: throat pain Card: Denies: chest pain Resp: Denies: dyspnea GI: Reports: abdominal pain and diarrhea : Denies: flank pain Musc: Reports: back pain Skin/Breast: Reports: lesions Neuro: Denies: headache(s) Psych: Denies: anxiety Endo: Denies: polyuria Riky/Lymph: Denies: easy bruising All/Imm: Denies: urticaria Medications/Allergies Home Medications Medication Instructions Recorded Confirmed Last Taken Type ipratropium-albuterol 2.5 ml INHALATION Q4H PRN 11/03/19 06/13/21 04/01/20 History acetaminophen [Tylenol Extra 1,000 mg PO PRN 01/17/21 06/13/21 Unknown History Strength] aspirin 81 mg PO DAILY #30 tab 01/26/21 06/13/21 06/12/21 Rx budesonide 0.5 mg INHALATION BID #60 ml 01/26/21 06/13/21 Unknown Rx furosemide 60 mg PO DAILY@0800 #45 tab 01/26/21 06/13/21 06/12/21 Rx gabapentin [Neurontin] 100 mg PO TID #90 cap 01/26/21 06/13/21 06/12/21 Rx ipratropium-albuterol 3 ml INHALATION Q6H #180 ml 01/26/21 06/13/21 Unknown Rx lidocaine See Rx Instructions .ROUTE 01/26/21 06/13/21 Unknown Rx .COMPLEX #30 ea metformin 500 mg PO BID #60 tab 01/26/21 06/13/21 06/12/21 Rx metoprolol tartrate 12.5 mg PO BID@0900,2100 #30 tab 01/26/21 06/13/21 06/12/21 Rx pantoprazole 40 mg PO QAM #30 tab 01/26/21 06/13/21 06/12/21 Rx potassium chloride 20 meq PO DAILY #30 tab 01/26/21 06/13/21 06/12/21 Rx promethazine 25 mg PO Q6H PRN #10 tab 01/26/21 06/13/21 Unknown Rx sertraline 50 mg PO BEDTIME #30 tab 01/26/21 06/13/21 06/12/21 Rx diphenoxylate-atropine [Lomotil] 1 tab PO BID PRN #7 tab 01/31/21 06/13/21 Unknown Rx blood-glucose meter #1 ea 02/04/21 06/13/21 Unknown Rx insulin glargine [Lantus Solostar 10 unit SUBCUT QPM #15 ml 02/04/21 06/13/21 06/12/21 Rx U-100 Insulin] pen needle, diabetic [Lite Touch #50 ea 02/10/21 06/13/21 Unknown Rx Insulin Pen [place]] alprazolam [Xanax] 0.5 mg PO TID PRN #20 tab 02/12/21 06/13/21 Unknown Rx acetaminophen 500 mg PO Q6H PRN 5 Days #20 tab 06/13/21 Unknown Rx citalopram 20 mg PO DAILY 06/13/21 06/13/21 06/12/21 History hydrocodone-acetaminophen 1 tab PO Q4H PRN 06/13/21 06/13/21 Unknown History oxycodone 15 mg PO Q4H PRN 06/13/21 06/13/21 Unknown History prednisone 5 mg PO DAILY 06/13/21 06/13/21 06/12/21 History Allergies Allergy/AdvReac Type Severity Reaction Status Date / Time No Known Allergies Allergy Verified 01/17/21 10:29 PFSH Acute PFSH: Medical History Aortic stenosis, mild BPH with urinary obstruction CHF (congestive heart failure) Chronic indwelling Drake catheter Chronic kidney disease, stage 3 COPD (chronic obstructive pulmonary disease) COPD (chronic obstructive pulmonary disease) Diabetes mellitus, type II Erectile dysfunction History of ESBL E. coli infection urine, history of ESBL E. 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 Social History Smoking and tobacco status: never smoked Alcohol intake: never Marital status: / Current occupational status: retired and disabled Vitals/I&O/Wt Last Vital Signs Temp 97.6 F 06/13/21 11:55 Pulse 116 H 06/13/21 15:30 Resp 22 H 06/13/21 15:30 BP 136/69 06/13/21 15:30 Pulse Ox 100 06/13/21 15:30 06/13/21 06/13/21 06/13/21 06:59 14:59 22:59 Intake Total 550 / 550 Balance 550 / 550 Weight last 48 hrs Weight 90.718 kg Physical Exam Narrative: EXAM NARRATIVE: elderly male appears stated age Clinically looks euvolemic On 3 L via cannula Hemodynamically stable S1, S2 Abdomen tender on deep palpation, slightly distended Lower extremity no edema He is able to move his upper and lower extremities without any limitations No active signs of focal deficit EOMI, PERRLA No active signs of cellulitis Data : 06/14/21 04:11 06/14/21 04:11 Micro: Microbiology 06/13/21 15:55 Blood Culture - Preliminary Blood SPECIMEN COLLECTED 06/13/21 15:55 Blood Culture - Preliminary Blood SPECIMEN COLLECTED A&P Assessment and plan (1) Diarrhea: Status: Acute (2) Fall: Status: Acute (3) Acute UTI: Status: Acute (4) Acute kidney injury superimposed on chronic kidney disease: Status: Acute (5) Diabetes mellitus, type II: Status: Chronic Qualifiers: Diabetes mellitus usp insulin use: without usp use Diabetes mellitus complication status: with kidney complications Diabetes mellitus complication detail: with chronic kidney disease Chronic kidney disease stage: stage 3 (moderate) Qualified Code(s): E11.22 - Type 2 diabetes mellitus with diabetic chronic kidney disease; N18.3 - Chronic kidney disease, stage 3 (moderate) (6) Chronic indwelling Drake catheter: Status: Chronic (7) Aortic stenosis, mild: Status: Chronic Additional A&P Information Patient presented with generalized weakness and a fall This is a chronic condition He does have lumbar spinal stenosis and radiculopathy No active focal deficit He is able to move his upper lower extremities Check B12 levels Recurrent UTI: Pyuria with 3+ bacteria, previous history of ESBL, currently on Zosyn Worsening leukocytosis Afebrile Blood pressure stable we will follow with urine cultures Chronic indwelling catheter can have colonization of bacteria Acute on chronic kidney disease stage III: Likely cardiorenal, will add Lasix Has adequate urine output, less likely to have any post renal obstruction Zosyn, renally dosed He was given 500 mL bolus in the ER Reduce the dose of gabapentin because of worsening creatinine Diastolic congestive heart failure: We will keep him on low-dose diuretics considering mild aortic stenosis history Consistent carb diet Sliding scale DVT prophylaxis: Heparin Patient was on home hospice, DNR/DNI Does not want to be institutionalized, planning to get treatment in the hospital and then go back home Attestations Medical Necessity Statement*: Less than 2 midnights anticipated Time Spent in Patient Care: Greater than 35 minutes Coding Level of Care Code Acute Smooth Stucco Resurfacer for Chg Fwd Diagnoses Diarrhea R19.7 Fall W19.XXXA Acute UTI N39.0 Acute kidney injury superimposed on chronic kidney disease N17.9; N18.9 Diabetes mellitus, type II E11.22; N18.3 Diabetes mellitus commonwealth attorney insulin use: without commonwealth attorney use Diabetes mellitus complication status: with kidney complications Diabetes mellitus complication detail: with chronic kidney disease Chronic kidney disease stage: stage 3 (moderate) Chronic indwelling Drake catheter Z96.0 Aortic stenosis, mild I35.0
[2021-06-13] MEDS: HYDROcodone-acetaminophen 5-325 mg Tablet 1 TAB PO (18:15)
[2021-06-13] MEDS: ALPRAZolam 0.5 mg Tablet PO (18:15)
[2021-06-13] MEDS: piperacillin-tazobactam 3.375 GM in sodium chloride 0.9% (plus) 50 ML IV (18:15)
[2021-06-13] MEDS: dexamethasone 4 mg/mL INJ IVP ×2 (18:15→23:55)
[2021-06-13] MEDS: lidocaine 5% Patch 1 PATCH TOPICAL (18:15)
[2021-06-13] MEDS: insulin glargine 100 units/1 mL 10 UNIT SUBCUT (18:33)
--- NOTE | 2021-06-13 18:45 | PC.NURSE ---
Daughter Cathryn called at this time for update on patient. Voiced understanding and thanks for update.
[2021-06-13 19:46] VITALS: BP 100/65; PULSE 104; RESP 17; TEMP 36.6; O2SAT 98
[2021-06-13 20:09] LABS: Glucose Point of Care 155 mg/dL (70-110)
[2021-06-13] MEDS: budesonide 0.5 mg/2 mL Neb INHALATION (20:29)
[2021-06-13] MEDS: ipratropium-albuterol 3 mL Neb INHALATION (20:29)
[2021-06-13 20:35] VITALS: PULSE 97; RESP 16; O2SAT 99
[2021-06-13 20:44] VITALS: PULSE 97
[2021-06-13] MEDS: gabapentin 100 mg Capsule PO (23:37)
[2021-06-13] MEDS: metoprolol tartrate 25 mg Tablet 12.5 MG PO (23:37)
[2021-06-14] VITALS (13 sets, daily range): BP systolic 111–149; BP diastolic 70–89; PULSE 80–93; RESP 16–20; TEMP 36.6–36.9; O2SAT 91–99
[2021-06-14] MEDS: HYDROcodone-acetaminophen 5-325 mg Tablet 1 TAB PO ×3 (00:30→16:00)
[2021-06-14] MEDS: piperacillin-tazobactam 3.375 GM in sodium chloride 0.9% (plus) 50 ML IV ×2 (01:46→08:10)
[2021-06-14] MEDS: ipratropium-albuterol 3 mL Neb INHALATION ×4 (03:23→20:58)
[2021-06-14 05:02] LABS: Basophils % 0.1 %; Eosinophils % 0.1 %; Hematocrit 34.8 % (42.0-52.0); Hemoglobin 10.5 g/dL (11.7-16.6); Lymphocytes # 0.7 10^3/uL (0.8-4.8); Lymphocytes % 3.9 %; Mean Corpuscular HGB Conc 30.2 g/dL (30.0-36.0); Mean Corpuscular Hemoglobin 24.6 pg (28.0-34.0); Mean Corpuscular Volume 81.5 fl (80-94); Mean Platelet Volume 10.6 fL (7.4-10.4); Monocytes # 0.2 10^3/uL (0.2-0.9); Monocytes % 1.4 %; Neutrophils # 16.67 10^3/uL (1.8-7.7); Neutrophils % 93.8 %; Nucleated Red Blood Cells % 0 %; Platelet Count 217 10^3/cmm (130-400); Red Blood Count 4.27 10^6/uL (4.1-5.3); Red Cell Distribution Width 15.6 % (12.1-15.1); White Blood Count 17.8 10^3/uL (4.0-10.0)
[2021-06-14 05:25] LABS: Alanine Aminotransferase 14 U/L (0-41); Albumin Level 3.7 g/dL (3.5-5.2); Alkaline Phosphatase 90 IU/L (40-130); Anion Gap 20.4 (5-19); Aspartate Amino Transferase 16 U/L (0-40); Blood Urea Nitrogen 30 mg/dL (8-23); Calcium 9.1 mg/dL (8.5-10.5); Carbon Dioxide 30 mmol/L (22-29); Chloride 91 mmol/L (98-107); Globulin 2.8 g/dL (1.3-4.6); Glucose 172 mg/dL (65-115); Osmolality Calculated 294 mOsm/kg (285-295); Potassium 4.4 mmol/L (3.5-5.1); Sodium 137 mmol/L (136-145); Total Bilirubin 0.4 mg/dL (0.15-1.2); Total Protein 6.5 g/dL (6.6-8.7)
[2021-06-14] MEDS: pantoprazole DR 40 mg Tablet PO (06:04)
[2021-06-14] MEDS: dexamethasone 4 mg/mL INJ IVP ×2 (06:11→11:31)
[2021-06-14 07:29] LABS: Glucose Point of Care 222 mg/dL (70-110)
[2021-06-14] MEDS: citalopram 20 mg Tablet PO (08:09)
[2021-06-14] MEDS: gabapentin 100 mg Capsule PO (08:09)
[2021-06-14] MEDS: metoprolol tartrate 25 mg Tablet 12.5 MG PO ×2 (08:09→21:12)
[2021-06-14] MEDS: insulin lispro 100 unit/1 mL SUBCUT ×2 (08:09→17:19)
[2021-06-14] MEDS: lidocaine 5% Patch 1 PATCH TOPICAL ×2 (08:09→21:14)
[2021-06-14] MEDS: aspirin 81 mg EC Tablet PO (08:10)
[2021-06-14] MEDS: budesonide 0.5 mg/2 mL Neb INHALATION ×2 (09:36→20:58)
[2021-06-14 12:02] LABS: Glucose Point of Care 131 mg/dL (70-110)
--- NOTE | 2021-06-14 12:04 | CTR_ITS ---
PROCEDURE INFORMATION: Exam: CT Abdomen And Pelvis Without Contrast Exam date and time: 06/14/2021 12:04 PM Age: 81 years old Clinical indication: Patient HX: Generalized ab pain w/ diarrhea; Additional info: Diarrhea, abdominal o pain worsening creatinine TECHNIQUE: Imaging protocol: Computed tomography of the abdomen and pelvis without contrast. Radiation optimization: All CT scans at this facility use at least one of these dose optimization techniques: automated exposure control; mA and/or kV adjustment per patient size (includes targeted exams where dose is matched to clinical indication); or iterative reconstruction. COMPARISON: CT abdomen pelvis w con* [id number] 02/22/2020 5:04 PM RADIATION DOSE METRICS: Total DLP (mGy-cm): 1404.28 FINDINGS: Lungs: There is dependent atelectasis in the lung bases. Heart: The heart is not enlarged. There is prominent calcification of the coronary arteries. Diaphragm: There is stable chronic elevation of the right hemidiaphragm. Liver: There are tiny benign calcified granulomas in the liver. No liver mass. Gallbladder and bile ducts: Normal. No calcified stones. No ductal dilation. Pancreas: The pancreas is atrophic. No pancreatic mass or ductal dilatation. Spleen: There are tiny benign calcified granulomas in the spleen. Adrenal glands: Normal. No mass. Kidneys and ureters: There are multiple small hyperdense renal cysts that are probably proteinaceous. There is no hydronephrosis. No ureteral calculi are seen.. No hydronephrosis. Stomach and bowel: There are scattered diverticuli in the colon but there is no evidence of acute diverticulitis. There is no bowel obstruction or dilatation. Appendix: No evidence of appendicitis. Intraperitoneal space: Unremarkable. No free air. No significant fluid collection. Vasculature: The aorta and iliac arteries are calcified. There is no aneurysm. Lymph nodes: There are multiple benign calcified lymph nodes in the mediastinum and pulmonary deejay. Small benign calcified retroperitoneal lymph nodes are present. No adenopathy is seen in the abdomen and pelvis. Urinary bladder: The urinary bladder is collapsed around a Drake catheter. Some gas in the urinary bladder is probably related to the catheterization. There is mild thickening of the urinary bladder wall. Reproductive: Unremarkable as visualized. Bones/joints: Chronic degenerative changes are present in the spine with disc space narrowing sclerosis and osteophytes. Soft tissues: There is a small uncomplicated fat containing umbilical hernia. CT/CT abdomen pelvis wo con [id number] IMPRESSION: 1. No acute abnormalities are seen in the abdomen and pelvis. 2. Mild diverticulosis but no evidence of acute diverticulitis. 3. Prominent coronary artery calcification. 4. Benign calcified granulomas disease. 5. Calcified atherosclerotic aorta. COMMENTS: Consistent with the [employer]'s Incidental Findings Committee white paper (J Am Leo Radiol 2018): Any incidental renal lesion less than 1 cm or classified as too small to characterize, or any incidental cystic renal lesion characterized as simple-appearing, is likely benign. No follow-up imaging is recommended for these lesions per consensus recommendations based on imaging criteria. Radiation Dose CTDIVOL = (mGy): DLP = 1404.28 (mGy-cm)
--- NOTE | 2021-06-14 12:21 | PM.PN ---
Subjective Subjective: Interval history: Patient endorsing feeling back to baseline Awake and alert He was to go back home Requested C. difficile panel today will give IV Lasix 20 mg today Worsening creatinine and leukocytosis Vitals/I&O/Wt Last Vital Signs Temp 98.0 F 06/14/21 07:58 Pulse 83 06/14/21 10:52 Resp 19 H 06/14/21 10:52 BP 119/76 06/14/21 10:52 Pulse Ox 95 06/14/21 10:52 06/13/21 06/14/21 06/14/21 22:59 06:59 14:59 Intake Total 1030 / 1030 100 / 1130 Output Total 1250 / 1250 Balance 1030 / 1030 -1150 / -120 Weight last 48 hrs Weight 89.018 kg Weight 90.718 kg Physical Exam Narrative: EXAM NARRATIVE: Patient is awake and alert On 3 L nasal cannula S1, S2 Clinically looks slightly fluid overloaded Legs without significant edema Abdomen distended mild tenderness on palpation Nonfocal neuro exam Able to move his upper and lower extremities No signs of cellulitis Data : 06/14/21 04:11 06/14/21 04:11 Micro: Microbiology 06/13/21 15:55 Urine Culture - Preliminary Urine,Clean Catch Gram Negative Rods 06/13/21 15:55 Blood Culture - Preliminary Blood SPECIMEN COLLECTED 06/13/21 15:55 Blood Culture - Preliminary Blood SPECIMEN COLLECTED A&P Assessment and plan (1) Acute kidney injury superimposed on chronic kidney disease: Status: Acute (2) Fall: Status: Acute (3) Diarrhea: Status: Acute (4) Arm laceration: Status: Acute (5) Abrasion of arm, right: Status: Acute (6) Aortic stenosis, mild: Status: Chronic (7) Chronic indwelling Drake catheter: Status: Chronic (8) Diabetes mellitus, type II: Status: Chronic Qualifiers: Diabetes mellitus senior living insulin use: without senior living use Diabetes mellitus complication status: with kidney complications Diabetes mellitus complication detail: with chronic kidney disease Chronic kidney disease stage: stage 3 (moderate) Qualified Code(s): E11.22 - Type 2 diabetes mellitus with diabetic chronic kidney disease; N18.3 - Chronic kidney disease, stage 3 (moderate) (9) COPD (chronic obstructive pulmonary disease): Status: Chronic Qualifiers: COPD type: unspecified COPD Qualified Code(s): J44.9 - Chronic obstructive pulmonary disease, unspecified Additional A&P Information Diarrhea: Rule out C. 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 [facility] Fwd Diagnoses Acute kidney injury superimposed on chronic kidney disease N17.9; N18.9 Fall W19.XXXA Diarrhea R19.7 Arm laceration S41.119A Abrasion of arm, right S40.811A Aortic stenosis, mild I35.0 Chronic indwelling Drake catheter Z96.0 Diabetes mellitus, type II E11.22; N18.3 Diabetes mellitus senior living insulin use: without terminal gauger use Diabetes mellitus complication status: with kidney complications Diabetes mellitus complication detail: with chronic kidney disease Chronic kidney disease stage: stage 3 (moderate) COPD (chronic obstructive pulmonary disease) J44.9 COPD type: unspecified COPD
[2021-06-14] MEDS: FUROsemide 10 mg/mL SDV 4mL 40 MG IVP (13:22)
[2021-06-14] MEDS: heparin 5,000 unit/mL INJ 1 mL 5000 UNIT SUBCUT (13:22)
[2021-06-14 13:25] LABS: NT Pro B Type Natriuretic Pept 638 pg/mL (0-450)
[2021-06-14] MEDS: ALPRAZolam 0.5 mg Tablet PO (16:00)
[2021-06-14] MEDS: acetaminophen 500 mg Tablet PO (17:19)
[2021-06-14] MEDS: insulin glargine 100 units/1 mL 10 UNIT SUBCUT (17:19)
[2021-06-14 17:41] LABS: Glucose Point of Care 234 mg/dL (70-110)
[2021-06-14 20:13] LABS: Glucose Point of Care 105 mg/dL (70-110)
[2021-06-14 20:13] LABS: Glucose Point of Care 226 mg/dL (70-110)
[2021-06-14 20:13] LABS: Glucose Point of Care 161 mg/dL (70-110)
[2021-06-15] VITALS (13 sets, daily range): BP systolic 119–154; BP diastolic 73–90; PULSE 63–112; RESP 16–19; TEMP 36.8–37.1; O2SAT 92–98
[2021-06-15] MEDS: HYDROcodone-acetaminophen 5-325 mg Tablet 1 TAB PO ×4 (00:07→20:25)
[2021-06-15] MEDS: heparin 5,000 unit/mL INJ 1 mL 5000 UNIT SUBCUT ×2 (00:08→12:07)
[2021-06-15] MEDS: acetaminophen 500 mg Tablet PO (02:54)
[2021-06-15] MEDS: ALPRAZolam 0.5 mg Tablet PO ×3 (02:55→23:01)
[2021-06-15] MEDS: pantoprazole DR 40 mg Tablet PO (05:35)
[2021-06-15 06:09] LABS: Basophils % 0.1 %; Eosinophils % 0.1 %; Hematocrit 33.3 % (42.0-52.0); Lymphocytes # 1.8 10^3/uL (0.8-4.8); Lymphocytes % 10.2 %; Mean Corpuscular Hemoglobin 24.7 pg (28.0-34.0); Mean Corpuscular Volume 82.2 fl (80-94); Mean Platelet Volume 10.3 fL (7.4-10.4); Monocytes # 1.3 10^3/uL (0.2-0.9); Monocytes % 7.5 %; Neutrophils # 14.17 10^3/uL (1.8-7.7); Neutrophils % 81.4 %; Nucleated Red Blood Cells % 0 %; Platelet Count 240 10^3/cmm (130-400); Red Blood Count 4.05 10^6/uL (4.1-5.3); Red Cell Distribution Width 15.7 % (12.1-15.1); White Blood Count 17.4 10^3/uL (4.0-10.0)
[2021-06-15 06:39] LABS: Anion Gap 21.7 (5-19); Blood Urea Nitrogen 41 mg/dL (8-23); Carbon Dioxide 28 mmol/L (22-29); Chloride 91 mmol/L (98-107); Glucose 119 mg/dL (65-115); Osmolality Calculated 295 mOsm/kg (285-295); Potassium 3.7 mmol/L (3.5-5.1); Sodium 137 mmol/L (136-145)
[2021-06-15 06:48] LABS: Magnesium 1.3 mg/dL (1.7-2.3)
[2021-06-15 06:55] LABS: Vitamin B12 399 pg/mL (232-1245)
[2021-06-15] MEDS: linezolid premix 600 MG/300 ML PREMIX 300 MG IV ×2 (07:58→17:44)
[2021-06-15] MEDS: sodium chloride 0.9% 1,000 ML 100 ML IV ×2 (08:00→17:40)
[2021-06-15] MEDS: citalopram 20 mg Tablet PO (08:01)
[2021-06-15] MEDS: aspirin 81 mg EC Tablet PO (08:01)
[2021-06-15] MEDS: metoprolol tartrate 25 mg Tablet 12.5 MG PO ×2 (08:01→20:25)
[2021-06-15] MEDS: lidocaine 5% Patch 1 PATCH TOPICAL (08:01)
[2021-06-15 08:24] LABS: Glucose Point of Care 126 mg/dL (70-110)
[2021-06-15 08:25] LABS: Glucose Point of Care 141 mg/dL (70-110)
[2021-06-15] MEDS: ipratropium-albuterol 3 mL Neb INHALATION ×3 (08:47→20:14)
[2021-06-15] MEDS: budesonide 0.5 mg/2 mL Neb INHALATION ×2 (08:47→20:14)
--- NOTE | 2021-06-15 10:01 | PC.CHAP ---
Pastoral Care Encounter/Spiritual Assessment Type of Contact [] Declined edi manager visit [] Patient/Family/Request visit [] Outpatient visit [] Follow-up visit [] Physician referral [] Code/Alert [x] Routine visit [] Staff referral [] Actively dying [x] Patient sleeping [] Family support [] [] Out of room [] Palliative care [] [] Receiving care in room [] Pre-surgical visit [] Trauma [] Long length of stay [] ICU visit [] Other: Relational/Emotional Strength [] Patient feels connected with others/family/visitors/staff [] Distress [] Loneliness/isolation [] Abandonment Spirituality of Patient [] Person of Rosio [] Attends Cheondoism of their Rosio [] Believes in Prayer [] Reads Bible or Pentecostalism materials [] There are Spiritual issues to be addressed Sourcer Interventions [] Prayer [] Active listening [] Non-anxious presence [] Spiritual/emotional support [] Crisis/trauma care [] Spiritual counseling [] Bereavement support [] Provided bereavement packet [] Provided Bible/devotional materials [] Provided toy/stuffed animal, coloring book to patient or family member [] Provided Communion [] Anointing/[place] [] Salvation [] Completed spiritual assessment [] Other: Impact on Illness or Injury [] Angry [] Fearful [] Anxious [] Often cries [] Exhaustion [] Unable to work [] Unable to attend faith [] Unable to walk/stand [] Unable to read [] Unable to drive [] Unable to eat/drink [] Unable to sleep [] Unable to be with family [] Patient intubated [] Other: Summary Time spent with patient
[2021-06-15] MEDS: ondansetron 2 mg/ML SDV 2 mL 4 MG IVP ×2 (11:15→21:12)
[2021-06-15 12:00] LABS: Glucose Point of Care 155 mg/dL (70-110)
[2021-06-15] MEDS: insulin lispro 100 unit/1 mL SUBCUT (12:07)
--- NOTE | 2021-06-15 13:36 | P.PN_ITS ---
Subjective Subjective: Interval history: Seen this morning. Patient is a little hard to understand when he talks. I believe he is a little hard of hearing as well. Patient does not offer many complaints except that he is has a little bit of nausea. He also states that he would like to have antibiotics for his infection. I did tell him that his blood culture was positive in his urine culture was also positive. He has been continued on Primaxin for now. No acute events overnight. WBC count 17,000 today. Vitals/I&O/Wt Last Vital Signs Temp 98.7 F 06/15/21 11:52 Pulse 83 06/15/21 11:52 Resp 16 06/15/21 11:52 BP 149/90 06/15/21 11:52 Pulse Ox 96 06/15/21 11:52 06/14/21 06/15/21 06/15/21 22:59 06:59 14:59 Intake Total 580 / 1210 460 / 1670 400 / 400 Output Total 960 / 2360 Balance 580 / -190 -500 / -690 400 / 400 Weight last 48 hrs Weight 89.018 kg Physical Exam Narrative: EXAM NARRATIVE: General: Alert oriented, patient seen awake alert laying in bed appearing comfortable on 3 L nasal cannula. HEENT: Normocephalic, atraumatic, EOMI, breathing comfortably, normal respiratory effort, does have periorbital edema Cardio: Regular rate, S1-S2 normal, no gross murmurs, Respiratory: Diminished bilateral air entry, mainly clear to auscultation, no gross wheezes or rhonchi GI: Abdomen soft, nontender, bowel sounds normoactive obese rounded abdomen Behavior: Appropriate and cooperative Extremities: no edema, no cyanosis. Upper extremities bilaterally wrapped on forearm area. Neuro: Nonfocal exam. Data : 06/15/21 05:46 06/15/21 05:46 Micro: Microbiology 06/13/21 15:55 Urine Culture - Final Urine,Clean Catch Escherichia coli esbl 06/13/21 15:55 Blood Culture - Preliminary Blood Staphylococcus sp coag neg 06/13/21 15:55 Blood Culture - Preliminary Blood NEGATIVE TO DATE A&P Assessment and plan (1) Acute kidney injury superimposed on chronic kidney disease: Status: Acute (2) Fall: Status: Acute (3) Diarrhea: Status: Acute (4) Arm laceration: Status: Acute (5) Abrasion of arm, right: Status: Acute (6) Chronic indwelling Drake catheter: Status: Chronic (7) Diabetes mellitus, type II: Status: Chronic Qualifiers: Diabetes mellitus truck terminal manager insulin use: without penitentiary use Diabetes mellitus complication status: with kidney complications Diabetes mellitus complication detail: with chronic kidney disease Chronic kidney disease stage: stage 3 (moderate) Qualified Code(s): E11.22 - Type 2 diabetes mellitus with diabetic chronic kidney disease; N18.3 - Chronic kidney disease, stage 3 (moderate) (8) COPD (chronic obstructive pulmonary disease): Status: Chronic Qualifiers: COPD type: unspecified COPD Qualified Code(s): J44.9 - Chronic obstructive pulmonary disease, unspecified (9) Hypertension: Status: Chronic Qualifiers: Hypertension type: essential hypertension Qualified Code(s): I10 - Essential (primary) hypertension (10) History of ESBL E. coli infection: Status: Chronic (11) Chronic kidney disease, stage 3: Status: Chronic Qualifiers: Chronic kidney disease stage 3 subtype: stage 3b (GFR 30-44) Qualified Code(s): N18.32 - Chronic kidney disease, stage 3b Additional A&P Information Patient presented with generalized weakness and a fall This is a chronic condition He does have lumbar spinal stenosis and radiculopathy No active focal deficit He is able to move his upper lower extremities B12 levels are pending. Right and left forearm x-rays normal without any fractures, head CT negative, left and right tibia-fibula x-rays also unremarkable, right and left elbow x-ray unremarkable. Recurrent UTI: Pyuria with 3+ bacteria, previous history of ESBL, Worsening leukocytosis Afebrile Blood pressure stable. Urine culture pending. Chronic indwelling catheter can have colonization of bacteria Is currently on Primaxin. Blood culture 1 out of 3 bottles positive as well. Culture sensitivity pending. Most likely could be a contaminant at this point. We will continue to monitor and keep patient on Primaxin for now. Acute on chronic kidney disease stage III: Likely cardiorenal, patient placed on Lasix 40 IV daily. Patient's creatinine did go up from 1.6-1.7 today. Has adequate urine output, less likely to have any post renal obstruction I would repeat a chest x-ray today. Diastolic congestive heart failure: We will keep him on low-dose diuretics considering mild aortic stenosis history Consistent carb diet Sliding scale DVT prophylaxis: Heparin Patient was on home hospice, DNR/DNI Does not want to be institutionalized, planning to get treatment in the hospital and then go back home Attestations Medical Necessity Statement*: Will cross 2 midnights at this point. 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 [facility] Fwd Diagnoses Acute kidney injury superimposed on chronic kidney disease N17.9; N18.9 Fall W19.XXXA Diarrhea R19.7 Arm laceration S41.119A Abrasion of arm, right S40.811A Chronic indwelling Drake catheter Z96.0 Diabetes mellitus, type II E11.22; N18.3 Diabetes mellitus truck terminal manager insulin use: without truck terminal manager use Diabetes mellitus complication status: with kidney complications Diabetes mellitus complication detail: with chronic kidney disease Chronic kidney disease stage: stage 3 (moderate) COPD (chronic obstructive pulmonary disease) J44.9 COPD type: unspecified COPD Hypertension I10 Hypertension type: essential hypertension History of ESBL E. coli infection Z86.19 Chronic kidney disease, stage 3 N18.32 Chronic kidney disease stage 3 subtype: stage 3b (GFR 30-44)
--- NOTE | 2021-06-15 13:44 | XR_ITS ---
WS: [id number] Exam: XR KUB portable [id number] Date/Time of Exam: 06/15/2021 2:07 PM Reason For Exam: follow up No bowel obstruction or free air. Organ margins are obscured. Several ill-defined calcifications in t he upper right abdomen. Surgical clips also seen in the upper right abdomen. Bony structures are inta ct. XR/XR KUB portable [id number] IMPRESSION: 1. No acute abdominal process.
[2021-06-15 17:21] LABS: Glucose Point of Care 82 mg/dL (70-110)
[2021-06-15] MEDS: insulin glargine 100 units/1 mL 10 UNIT SUBCUT (17:40)
[2021-06-15 21:04] LABS: Glucose Point of Care 192 mg/dL (70-110)
[2021-06-16] VITALS (14 sets, daily range): BP systolic 122–135; BP diastolic 61–79; PULSE 73–102; RESP 16–20; TEMP 36.6–37.1; O2SAT 93–98
[2021-06-16] MEDS: HYDROcodone-acetaminophen 5-325 mg Tablet 1 TAB PO ×4 (01:52→17:03)
[2021-06-16] MEDS: heparin 5,000 unit/mL INJ 1 mL 5000 UNIT SUBCUT ×2 (01:52→12:56)
[2021-06-16] MEDS: ipratropium-albuterol 3 mL Neb INHALATION ×3 (02:31→20:15)
[2021-06-16] MEDS: sodium chloride 0.9% 1,000 ML 100 ML IV ×2 (04:57→19:41)
[2021-06-16 06:19] LABS: Basophils % 0.3 %; Eosinophils # 0.2 10^3/uL (0.0-0.8); Eosinophils % 1.5 %; Hematocrit 29.9 % (42.0-52.0); Hemoglobin 8.9 g/dL (11.7-16.6); Lymphocytes # 1.7 10^3/uL (0.8-4.8); Lymphocytes % 12.2 %; Mean Corpuscular HGB Conc 29.8 g/dL (30.0-36.0); Mean Corpuscular Hemoglobin 24.5 pg (28.0-34.0); Mean Corpuscular Volume 82.1 fl (80-94); Mean Platelet Volume 10.8 fL (7.4-10.4); Monocytes # 1.2 10^3/uL (0.2-0.9); Monocytes % 8.5 %; Neutrophils # 10.41 10^3/uL (1.8-7.7); Neutrophils % 76.9 %; Nucleated Red Blood Cells % 0 %; Platelet Count 219 10^3/cmm (130-400); Red Blood Count 3.64 10^6/uL (4.1-5.3); Red Cell Distribution Width 15.8 % (12.1-15.1); White Blood Count 13.5 10^3/uL (4.0-10.0)
[2021-06-16] MEDS: linezolid premix 600 MG/300 ML PREMIX 300 MG IV ×2 (06:22→18:04)
[2021-06-16] MEDS: pantoprazole DR 40 mg Tablet PO (06:23)
[2021-06-16 06:32] LABS: Glucose Point of Care 119 mg/dL (70-110)
[2021-06-16 06:35] LABS: Anion Gap 17.6 (5-19); Blood Urea Nitrogen 35 mg/dL (8-23); Calcium 8.3 mg/dL (8.5-10.5); Carbon Dioxide 28 mmol/L (22-29); Chloride 96 mmol/L (98-107); Glucose 101 mg/dL (65-115); Magnesium 1.3 mg/dL (1.7-2.3); Osmolality Calculated 294 mOsm/kg (285-295); Potassium 3.6 mmol/L (3.5-5.1); Sodium 138 mmol/L (136-145)
[2021-06-16] MEDS: magnesium sulfate premix 2 GM/50 ML PIGGYBACK IV (08:39)
[2021-06-16] MEDS: potassium chloride oral liq 20 mEq/15 mL UDC PO (08:39)
[2021-06-16] MEDS: aspirin 81 mg EC Tablet PO (08:40)
[2021-06-16] MEDS: metoprolol tartrate 25 mg Tablet 12.5 MG PO ×2 (08:40→21:48)
[2021-06-16] MEDS: citalopram 20 mg Tablet PO (08:40)
[2021-06-16] MEDS: lidocaine 5% Patch 1 PATCH TOPICAL ×2 (08:41→21:45)
[2021-06-16] MEDS: ALPRAZolam 0.5 mg Tablet PO ×2 (08:50→16:39)
[2021-06-16] MEDS: ondansetron 2 mg/ML SDV 2 mL 4 MG IVP ×2 (08:51→18:04)
--- NOTE | 2021-06-16 08:53 | P.PN_ITS ---
Subjective Subjective: Interval history: Seen this morning. He states he is very weak and cannot go home. Patient is requesting to go to rehab. He did present with a fall and has lacerations on the left and right forearm. He states he is not too worried about the urinary tract infection as he can take antibiotics but the weakness is something that he is really concerned about. He would like to go to rehab to become more stronger. clinical rehabilitation liaison also saw the patient today, awaiting recommendations. Otherwise patient denies any chest pain, shortness of breath, abdominal pain, diarrhea, constipation. Vitals/I&O/Wt Last Vital Signs Temp 98.6 F 06/16/21 12:00 Pulse 83 06/16/21 12:00 Resp 18 06/16/21 12:00 BP 127/61 06/16/21 12:00 Pulse Ox 94 06/16/21 12:00 06/15/21 06/16/21 06/16/21 22:59 06:59 14:59 Intake Total 2326.667 / 2846.667 900 / 3746.667 690 / 690 Output Total 800 / 800 850 / 1650 825 / 825 Balance 1526.667 / 2046.667 50 / 2096.667 -135 / -135 Physical Exam Narrative: EXAM NARRATIVE: General: Alert oriented, on 2 L nasal cannula. HEENT:breathing comfortably, normal respiratory effort, does have periorbital edema Cardio: Regular rate, S1-S2 normal, no gross murmurs, Respiratory: Good bilateral air entry today mainly clear to auscultation, no gross wheezes or rhonchi GI: Abdomen soft, nontender, bowel sounds normoactive obese rounded abdomen Behavior: Appropriate and cooperative Extremities: no edema, no cyanosis. Upper extremities bilaterally wrapped on forearm area. Neuro: Nonfocal exam. Data : 06/16/21 05:37 06/16/21 05:37 Micro: Microbiology 06/13/21 15:55 Blood Culture - Preliminary Blood 06/13/21 15:55 Blood Culture - Preliminary Blood Staphylococcus sp coag neg 06/14/21 13:15 C.difficile Toxin B Gene (PCR) - Final Stool Routine Collection 06/13/21 15:55 Urine Culture - Final Urine,Clean Catch Escherichia coli esbl A&P Assessment and plan (1) Acute kidney injury superimposed on chronic kidney disease: Status: Acute (2) Fall: Status: Acute (3) Diarrhea: Status: Acute (4) Arm laceration: Status: Acute (5) Abrasion of arm, right: Status: Acute (6) Chronic indwelling Drake catheter: Status: Chronic (7) Diabetes mellitus, type II: Status: Chronic Qualifiers: Diabetes 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 insulin use: without petroleum terminal plant operator use Diabetes mellitus complication status: with kidney complications Diabetes mellitus complication detail: with chronic kidney disease Chronic kidney disease stage: stage 3 (moderate) Qualified Code(s): E11.22 - Type 2 diabetes mellitus with diabetic chronic kidney disease; N18.3 - Chronic kidney disease, stage 3 (moderate) (8) COPD (chronic obstructive pulmonary disease): Status: Chronic Qualifiers: COPD type: unspecified COPD Qualified Code(s): J44.9 - Chronic obstructive pulmonary disease, unspecified (9) Hypertension: Status: Chronic Qualifiers: Hypertension type: essential hypertension Qualified Code(s): I10 - Essential (primary) hypertension (10) History of ESBL E. coli infection: Status: Chronic (11) Chronic kidney disease, stage 3: Status: Chronic Qualifiers: Chronic kidney disease stage 3 subtype: stage 3b (GFR 30-44) Qualified Code(s): N18.32 - Chronic kidney disease, stage 3b Additional A&P Information Patient presented with generalized weakness and a fall This is a chronic condition He does have lumbar spinal stenosis and radiculopathy No active focal deficit He is able to move his upper lower extremities B12 399. Although in normal range I will start him on B12 orally daily. Right and left forearm x-rays normal without any fractures, head CT negative, left and right tibia-fibula x-rays also unremarkable, right and left elbow x-ray unremarkable. Recurrent UTI: Pyuria with 3+ bacteria, previous history of ESBL, Worsening leukocytosis at 17,000 on 06/15/2012/28/2020. WBC count down to 13,000 today. Afebrile Blood pressure stable. Urine culture growing ESBL sensitive to imipenem and Bactrim. Chronic indwelling catheter can have colonization of bacteria Is currently on Primaxin and linezolid. Blood culture 1 out of 3 bottles positive as well. Coagulase negative staph identified. Most likely a contaminant will repeat blood culture to be sure. I will continue linezolid for 1 more day. Will de-escalate in a.m. Creatinine elevated at 1.5. Seems to be around his baseline. Acute on chronic kidney disease stage III: Likely cardiorenal, creatinine elevated on admission to 1.7. Today down to 1.5. I will restart patient's oral Lasix. Has adequate urine output, less likely to have any post renal obstruction. Did have 1600 cc urine output. I will repeat a chest x-ray. Patient appears to be euvolemic. Also has periorbital edema which seems to be chronic. Chronic diastolic congestive heart failure: We will keep him on low-dose diuretics considering mild aortic stenosis history Consistent carb diet Sliding scale DVT prophylaxis: Heparin Patient was on home hospice, DNR/DNI As per admission note does not want to be institutionalized, planning to get treatment in the hospital and then go back home Today however patient states that he would like to go to rehab to get stronger. I have discussed with case management so they can discuss with him and the hospice entrance attendant to figure out a safe discharge plan for this patient. Patient did present with a fall and is experiencing generalized weakness due to deconditioning and feels he will not be safe at home. Attestations Medical Necessity Statement*: Greater than 48-hour stay. 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 [facility] Fwd Diagnoses Acute kidney injury superimposed on chronic kidney disease N17.9; N18.9 Fall W19.XXXA Diarrhea R19.7 Arm laceration S41.119A Abrasion of arm, right S40.811A Chronic indwelling Drake catheter Z96.0 Diabetes mellitus, type II E11.22; N18.3 Diabetes 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 insulin use: without petroleum terminal plant operator use Diabetes mellitus complication status: with kidney complications Diabetes mellitus complication detail: with chronic kidney disease Chronic kidney disease stage: stage 3 (moderate) COPD (chronic obstructive pulmonary disease) J44.9 COPD type: unspecified COPD Hypertension I10 Hypertension type: essential hypertension History of ESBL E. coli infection Z86.19 Chronic kidney disease, stage 3 N18.32 Chronic kidney disease stage 3 subtype: stage 3b (GFR 30-44)
[2021-06-16 09:28] LABS: HIV RNA (CPY/ML) <1.30 NOT DETECTED (NOT DETECTED); HIV RNA LOG <20 NOT DETECTED copies/mL (NOT DETECTED)
[2021-06-16 11:20] LABS: Glucose Point of Care 136 mg/dL (70-110)
[2021-06-16 17:11] LABS: Glucose Point of Care 162 mg/dL (70-110)
[2021-06-16] MEDS: insulin lispro 100 unit/1 mL SUBCUT (18:05)
[2021-06-16] MEDS: insulin glargine 100 units/1 mL 10 UNIT SUBCUT (18:05)
--- NOTE | 2021-06-16 19:43 | PC.NURSE ---
Shift report received from Dinah HOOK. Patient in bed /watching TV. Rates pain at a 10/18 / PRN available at 2100 patient aware. Patient c/o of SOB and is requesting a breathing treatment/O2 sat 94%. O2 2L NC. Drake intact draining clear yellow urine. BUE emperatriz wraps in place. IV patent / NS infusing at 100mL/hr. No other needs voiced at this time.
[2021-06-16] MEDS: budesonide 0.5 mg/2 mL Neb INHALATION (20:15)
[2021-06-16 21:23] LABS: Glucose Point of Care 121 mg/dL (70-110)
[2021-06-17] VITALS (12 sets, daily range): BP systolic 108–155; BP diastolic 66–87; PULSE 63–92; RESP 16–20; TEMP 36.5–36.9; O2SAT 90–97
[2021-06-17] MEDS: heparin 5,000 unit/mL INJ 1 mL 5000 UNIT SUBCUT ×2 (00:29→12:17)
--- NOTE | 2021-06-17 01:09 | PC.NURSE ---
Dr Barrera notified of patient's c/o of shortness of breath/ per patient he feels like he can't breathe . Vitals WNL. Hospitalist will review chart and place orders PRN. No new orders at this time.
[2021-06-17] MEDS: FUROsemide 10 mg/mL SDV 2mL 20 MG IVP (01:42)
[2021-06-17] MEDS: ALPRAZolam 0.5 mg Tablet PO ×4 (01:51→22:07)
[2021-06-17] MEDS: ipratropium-albuterol 3 mL Neb INHALATION ×4 (03:34→20:35)
[2021-06-17 06:15] LABS: Basophils % 0.2 %; Eosinophils # 0.2 10^3/uL (0.0-0.8); Eosinophils % 1.4 %; Hematocrit 30.8 % (42.0-52.0); Lymphocytes # 1.1 10^3/uL (0.8-4.8); Lymphocytes % 8.1 %; Mean Corpuscular HGB Conc 29.2 g/dL (30.0-36.0); Mean Corpuscular Hemoglobin 24.3 pg (28.0-34.0); Mean Corpuscular Volume 83.2 fl (80-94); Mean Platelet Volume 10.2 fL (7.4-10.4); Monocytes % 7.5 %; Neutrophils # 10.74 10^3/uL (1.8-7.7); Neutrophils % 82.3 %; Nucleated Red Blood Cells % 0 %; Platelet Count 199 10^3/cmm (130-400); Red Cell Distribution Width 15.6 % (12.1-15.1); White Blood Count 13.1 10^3/uL (4.0-10.0)
[2021-06-17 06:30] LABS: Anion Gap 15.3 (5-19); Blood Urea Nitrogen 25 mg/dL (8-23); Calcium 8.5 mg/dL (8.5-10.5); Carbon Dioxide 30 mmol/L (22-29); Chloride 98 mmol/L (98-107); Glucose 110 mg/dL (65-115); Magnesium 1.8 mg/dL (1.7-2.3); Osmolality Calculated 295 mOsm/kg (285-295); Potassium 3.3 mmol/L (3.5-5.1); Sodium 140 mmol/L (136-145)
[2021-06-17] MEDS: pantoprazole DR 40 mg Tablet PO (06:42)
[2021-06-17] MEDS: linezolid premix 600 MG/300 ML PREMIX 300 MG IV (06:43)
[2021-06-17 06:47] LABS: Glucose Point of Care 112 mg/dL (70-110)
--- NOTE | 2021-06-17 07:06 | PC.NURSE ---
Bilateral UE skin tear dressings changed at this time.
[2021-06-17] MEDS: budesonide 0.5 mg/2 mL Neb INHALATION ×2 (08:00→20:35)
--- NOTE | 2021-06-17 08:00 | XR_ITS ---
WS: [id number] Exam: XR chest 1V portable [id number] Date/Time of Exam: 06/17/2021 6:12 AM Reason For Exam: follow up Comparison 01/16/2021. Chronic plaque atelectasis in the right lower lobe. Chronic elevation of the rig ht diaphragm. Heart size is top limits normal. No pneumothorax. No acute infiltrates are seen. No ple ural effusion. Regional bony elements are intact. The mediastinum is not widened. XR/XR chest 1V portable [id number] IMPRESSION: 1. No acute cardiopulmonary finding. 2. Right basal plaque atelectasis and chronic elevation of the right diaphragm.
[2021-06-17] MEDS: FUROsemide 40 mg Tablet PO (08:36)
[2021-06-17] MEDS: citalopram 20 mg Tablet PO (08:36)
[2021-06-17] MEDS: metoprolol tartrate 25 mg Tablet 12.5 MG PO ×2 (08:36→22:03)
[2021-06-17] MEDS: HYDROcodone-acetaminophen 5-325 mg Tablet 1 TAB PO ×2 (08:36→16:00)
[2021-06-17] MEDS: aspirin 81 mg EC Tablet PO (08:36)
[2021-06-17 11:33] LABS: Glucose Point of Care 139 mg/dL (70-110)
--- NOTE | 2021-06-17 12:03 | P.PN_ITS ---
Subjective Subjective: Interval history: Seen this morning. Patient did have some shortness of breath overnight and his fluids were held and he was given some Lasix. This morning he reports a little bit of shortness of breath which he says has improved but not too much. He is not really coughing. He also states that if he gets well enough he would like to go home instead of rehab at this po int but is looking forward to working with physical therapy and seeing how things go. Otherwise denies any chest pain, abdominal pain, constipation. Vitals/I&O/Wt Last Vital Signs Temp 97.7 F 06/17/21 11:43 Pulse 68 06/17/21 11:43 Resp 16 06/17/21 11:43 BP 108/66 06/17/21 11:43 Pulse Ox 96 06/17/21 11:43 06/16/21 06/17/21 06/17/21 22:59 06:59 14:59 Intake Total 780 / 2470 200 / 2670 540 / 540 Output Total 300 / 1125 2525 / 3650 400 / 400 Balance 480 / 1345 -2325 / -980 140 / 140 Physical Exam 2 Narrative: EXAM NARRATIVE: General: Alert oriented, on 2 L nasal cannula. Chronically ill-appearing. HEENT:breathing comfortably, normal respiratory effort, does have periorbital edema Cardio: Regular rate, S1-S2 normal, no gross murmurs, does appear euvolemic. Respiratory: Decreased bilateral air entry, gross rhonchi and wheezes present throughout lung alston in the posterior region. GI: Abdomen soft, nontender, bowel sounds normoactive obese rounded abdomen Behavior: Appropriate and cooperative Extremities: no edema, no cyanosis. Upper extremities bilaterally wrapped on forearm area. Neuro: Nonfocal exam. Data : 06/17/21 04:50 06/17/21 04:50 Micro: Microbiology 06/16/21 14:37 Blood Culture - Preliminary Blood SPECIMEN COLLECTED 06/16/21 14:33 Blood Culture - Preliminary Blood SPECIMEN COLLECTED 06/13/21 15:55 Blood Culture - Preliminary Blood 06/13/21 15:55 Blood Culture - Preliminary Blood Staphylococcus sp coag neg A&P Assessment and plan (1) Acute kidney injury superimposed on chronic kidney disease: Status: Acute (2) Fall: Status: Acute (3) Diarrhea: Status: Acute (4) Arm laceration: Status: Acute (5) Abrasion of arm, right: Status: Acute (6) Chronic indwelling Drake catheter: Status: Chronic (7) Diabetes mellitus, type II: Status: Chronic Qualifiers: Diabetes mellitus halfway insulin use: without termite treater use Diabetes mellitus complication status: with kidney complications Diabetes mellitus complication detail: with chronic kidney disease Chronic kidney disease stage: stage 3 (moderate) Qualified Code(s): E11.22 - Type 2 diabetes mellitus with diabetic chronic kidney disease; N18.3 - Chronic kidney disease, stage 3 (moderate) (8) COPD (chronic obstructive pulmonary disease): Status: Chronic Qualifiers: COPD type: unspecified COPD Qualified Code(s): J44.9 - Chronic obstructive pulmonary disease, unspecified (9) Hypertension: Status: Chronic Qualifiers: Hypertension type: essential hypertension Qualified Code(s): I10 - Ess ential (primary) hypertension (10) History of ESBL E. coli infection: Status: Chronic (11) Chronic kidney disease, stage 3: Status: Chronic Qualifiers: Chronic kidney disease stage 3 subtype: stage 3b (GFR 30-44) Qualified Code(s): N18.32 - Chronic kidney disease, stage 3b Additional A&P Information Patient presented with generalized weakness and a fall This is a chronic condition He does have lumbar spinal stenosis and radiculopathy No active focal deficit He is able to move his upper lower extremities B12 399. Although in normal range I will start him on B12 orally daily. Right and left forearm x-rays normal without any fractures, head CT negative, left and right tibia-fibula x-rays also unremarkable, right and left elbow x-ray unremarkable. Recurrent UTI: Pyuria with 3+ bacteria, previous history of ESBL, Worsening leukocytosis at 17,000 on 06/15/2012/28/2020. WBC count down to 13,000 today. Afebrile Blood pressure stable. Urine culture growing ESBL sensitive to imipenem and Bactrim. Chronic indwelling catheter can have colonization of bacteria Is currently on Primaxin and linezolid. Blood culture 1 out of 3 bottles positive as well. Coagulase negative staph identified. Most likely a contaminant will repeat blood culture to be sure. Repeat blood culture negative to date. I will stop linezolid at this point and continue Primaxin. Acute on chronic kidney disease stage III: Likely cardiorenal, creatinine elevated on admission to 1.7. Today down to 1.4. Oral Lasix was resumed yesterday but patient did get 1 dose of IV Lasix overnight. Has adequate urine output, less likely to have any post renal obstruction. I will repeat a chest x-ray. Patient appears to be euvolemic. Also has periorbital edema which seems to be chronic. Will stop IV fluids Hypokalemia?we will replete today. Chronic diastolic congestive heart failure: We will keep him on low-dose diuretics considering mild aortic stenosis history Possible COPD exacerbation. - Will continue duoneb q4 hours - Prednisone 40 daily Consistent carb diet Sliding scale DVT prophylaxis: Heparin Patient was on home hospice, DNR/DNI As per admission note does not want to be institutionalized, planning to get treatment in the hospital and then go back home Today patient states that he would like to go home if he can work well with physical therapy as he has things to do there. Unsure he wants to go to rehab at this point. He would like to work with physical therapy to see how much he can do. 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 [facility] Fwd Diagnoses Acute kidney injury superimposed on chronic kidney disease N17.9; N18.9 Fall W19.XXXA Diarrhea R19.7 Arm laceration S41.119A Abrasion of arm, right S40.811A Chronic indwelling Drake catheter Z96.0 Diabetes mellitus, type II E11.22; N18.3 Diabetes mellitus halfway insulin use: without halfway use Diabetes mellitus complication status: with kidney complications Diabetes mellitus complication detail: with chronic kidney disease Chronic kidney disease stage: stage 3 (moderate) COPD (chronic obstructive pulmonary disease) J44.9 COPD type: unspecified COPD Hypertension I10 Hypertension type: essential hypertension History of ESBL E. coli infection Z86.19 Chronic kidney disease, stage 3 N18.32 Chronic kidney disease stage 3 subtype: stage 3b (GFR 30-44)
[2021-06-17] MEDS: predniSONE 20 mg Tablet 40 MG PO (12:16)
[2021-06-17] MEDS: potassium chloride oral liq 20 mEq/15 mL UDC PO (12:16)
[2021-06-17] MEDS: ondansetron 2 mg/ML SDV 2 mL 4 MG IVP (12:59)
[2021-06-17 17:25] LABS: Glucose Point of Care 178 mg/dL (70-110)
[2021-06-17] MEDS: insulin glargine 100 units/1 mL 10 UNIT SUBCUT (17:46)
[2021-06-17] MEDS: insulin lispro 100 unit/1 mL SUBCUT (17:46)
--- NOTE | 2021-06-17 19:05 | PC.NURSE ---
Shift report received from Dinah HOOK. Patient awake in bed. PRN pain medication administered at 1600/ patient denies pain at this time. BUE emperatriz wraps in place. Drake intact draining yellow urine. No needs voiced at this time.
[2021-06-17] MEDS: lidocaine 5% Patch 1 PATCH TOPICAL (20:31)
[2021-06-17 22:00] LABS: Glucose Point of Care 221 mg/dL (70-110)
[2021-06-18] VITALS (13 sets, daily range): BP systolic 114–160; BP diastolic 65–95; PULSE 72–100; RESP 18–22; TEMP 36.6–37; O2SAT 91–99
[2021-06-18] MEDS: heparin 5,000 unit/mL INJ 1 mL 5000 UNIT SUBCUT ×2 (00:58→13:05)
[2021-06-18] MEDS: HYDROcodone-acetaminophen 5-325 mg Tablet 1 TAB PO ×5 (00:59→23:22)
[2021-06-18] MEDS: ipratropium-albuterol 3 mL Neb INHALATION ×4 (03:24→20:59)
[2021-06-18 05:45] LABS: Basophils % 0.1 %; Eosinophils % 0.3 %; Hematocrit 29.8 % (42.0-52.0); Lymphocytes # 1.3 10^3/uL (0.8-4.8); Lymphocytes % 10.8 %; Mean Corpuscular HGB Conc 30.2 g/dL (30.0-36.0); Mean Corpuscular Hemoglobin 24.6 pg (28.0-34.0); Mean Corpuscular Volume 81.4 fl (80-94); Mean Platelet Volume 10.4 fL (7.4-10.4); Monocytes # 0.9 10^3/uL (0.2-0.9); Monocytes % 7.7 %; Neutrophils # 9.36 10^3/uL (1.8-7.7); Neutrophils % 80.1 %; Nucleated Red Blood Cells % 0 %; Platelet Count 206 10^3/cmm (130-400); Red Blood Count 3.66 10^6/uL (4.1-5.3); White Blood Count 11.7 10^3/uL (4.0-10.0)
[2021-06-18 06:11] LABS: Blood Urea Nitrogen 24 mg/dL (8-23); Calcium 8.7 mg/dL (8.5-10.5); Carbon Dioxide 36 mmol/L (22-29); Chloride 97 mmol/L (98-107); Glucose 117 mg/dL (65-115); Magnesium 1.7 mg/dL (1.7-2.3); Osmolality Calculated 293 mOsm/kg (285-295); Sodium 139 mmol/L (136-145)
[2021-06-18 07:39] LABS: Glucose Point of Care 120 mg/dL (70-110)
[2021-06-18] MEDS: predniSONE 20 mg Tablet 40 MG PO (08:34)
[2021-06-18] MEDS: FUROsemide 40 mg Tablet PO (08:35)
[2021-06-18] MEDS: pantoprazole DR 40 mg Tablet PO (08:35)
[2021-06-18] MEDS: metoprolol tartrate 25 mg Tablet 12.5 MG PO ×2 (08:35→20:47)
[2021-06-18] MEDS: citalopram 20 mg Tablet PO (08:35)
[2021-06-18] MEDS: aspirin 81 mg EC Tablet PO (08:35)
[2021-06-18] MEDS: lidocaine 5% Patch 1 PATCH TOPICAL ×2 (08:36→20:45)
[2021-06-18] MEDS: budesonide 0.5 mg/2 mL Neb INHALATION ×2 (08:53→20:59)
[2021-06-18] MEDS: ondansetron 2 mg/ML SDV 2 mL 4 MG IVP ×2 (11:38→18:41)
[2021-06-18 12:17] LABS: Glucose Point of Care 192 mg/dL (70-110)
[2021-06-18] MEDS: insulin lispro 100 unit/1 mL SUBCUT (13:05)
[2021-06-18] MEDS: ALPRAZolam 0.5 mg Tablet PO ×2 (13:05→22:28)
--- NOTE | 2021-06-18 13:58 | P.PN_ITS ---
Subjective Subjective: Interval history: Seen this morning. Patient is sitting up in bed having breakfast. He states he is looking forward to working with physical therapy today. He is requesting to stay for another few days so that he can get stronger. He did agree to go to a senior living facility this morning when he spoke to case management. Referrals have been placed. Family was also present at bedside when the foster care case manager saw him and they are aware that patient has agreed to go to senior living and also agree. Patient states that his bandage needs to be changed for his right forearm laceration. I told him that we will be taking off the bandage today assessing his wound and applying a new Band-Aid for him after he has his breakfast. Vitals/I&O/Wt Last Vital Signs Temp 98.2 F 06/18/21 11:56 Pulse 72 06/18/21 11:56 Resp 20 H 06/18/21 11:56 BP 119/70 06/18/21 11:56 Pulse Ox 95 06/18/21 11:56 06/17/21 06/18/21 06/18/21 22:59 06:59 14:59 Intake Total 460 / 1340 200 / 1540 560 / 560 Output Total 1200 / 1600 600 / 2200 Balance -740 / -260 -400 / -660 560 / 560 Physical Exam Narrative: EXAM NARRATIVE: General: Alert oriented, on 2 L nasal cannula. Chronically ill-appearing. HEENT:breathing comfortably, normal respiratory effort, does have periorbital edema Cardio: Regular rate, S1-S2 normal, no gross murmurs, does appear euvolemic. Respiratory: Decreased bilateral air entry, gross rhonchi and wheezes present throughout lung alston in the posterior region. No crackles appreciated. GI: Abdomen soft, nontender, bowel sounds normoactive obese rounded abdomen Behavior: Appropriate and cooperative Extremities: no edema, no cyanosis. Upper extremities bilaterally wrapped on forearm area. Band-Aid is coming off of the right arm. There was some skin peeling seen as well it seems like a superficial laceration. Left arm does have sutures present. I will be removing the bandages personally today to assess the wounds and will add an addendum to this note. Will defer this to after patient has had breakfast and will do it towards the afternoon. Neuro: Nonfocal exam. Data : 06/18/21 05:25 06/18/21 05:25 Micro: Microbiology 06/13/21 15:55 Blood Culture - Final Blood Staphylococcus epidermidis 06/13/21 15:55 Blood Culture - Final Blood Staphylococcus epidermidis 06/16/21 14:37 Blood Culture - Preliminary Blood NEGATIVE TO DATE 06/16/21 14:33 Blood Culture - Preliminary Blood NEGATIVE TO DATE A&P Assessment and plan (1) Acute kidney injury superimposed on chronic kidney disease: Status: Acute (2) Fall: Status: Acute (3) Diarrhea: Status: Acute (4) Arm laceration: Status: Acute (5) Abrasion of arm, right: Status: Acute (6) Chronic indwelling Drake catheter: Status: Chronic (7) Diabetes mellitus, type II: Status: Chronic Qualifiers: Diabetes mellitus correction insulin use: without correction use Diabetes mellitus complication status: with kidney complications Diabetes mellitus complication detail: with chronic kidney disease Chronic kidney disease stage: stage 3 (moderate) Qualified Code(s): E11.22 - Type 2 diabetes mellitus with diabetic chronic kidney disease; N18.3 - Chronic kidney disease, stage 3 (moderate) (8) COPD (chronic obstructive pulmonary disease): Status: Chronic Qualifiers: COPD type: unspecified COPD Qualified Code(s): J44.9 - Chronic obstructive pulmonary disease, unspecified (9) Hypertension: Status: Chronic Qualifiers: Hypertension type: essential hypertension Qualified Code(s): I10 - Essential (primary) hypertension (10) History of ESBL E. coli infection: Status: Chronic (11) Chronic kidney disease, stage 3: Status: Chronic Qualifiers: Chronic kidney disease stage 3 subtype: stage 3b (GFR 30-44) Qualified Code(s): N18.32 - Chronic kidney disease, stage 3b Additional A&P Information Patient presented with generalized weakness and a fall This is a chronic condition He does have lumbar spinal stenosis and radiculopathy No active focal deficit He is able to move his upper lower extremities B12 399. Although in normal range I will start him on B12 orally daily. Right and left forearm x-rays normal without any fractures, head CT negative, left and right tibia-fibula x-rays also unremarkable, right and left elbow x-ray unremarkable. #Recurrent UTI: Pyuria with 3+ bacteria, previous history of ESBL, Worsening leukocytosis at 17,000 on 06/15/2012/28/2020. WBC count down to 13,000 today. Afebrile Blood pressure stable. Urine culture growing ESBL sensitive to imipenem and Bactrim. Chronic indwelling catheter can have colonization of bacteria Is currently on Primaxin and linezolid. Blood culture 1 out of 3 bottles positive as well. Coagulase negative staph identified. Most likely a contaminant will repeat blood culture to be sure. Repeat blood culture negative to date. I will stop linezolid at this point and continue Primaxin. #Acute on chronic kidney disease stage III: #Chronic diastolic congestive heart failure #History of aortic stenosis Likely cardiorenal, creatinine elevated on admission to 1.7. Today up to 1.6. Bicarb also rising. Patient could manage contraction alkalosis at this point. I will stop his IV Lasix and switch him to oral 40 starting tomorrow we will give him a Lasix holiday today. Has adequate urine output, less likely to have any post renal obstruction. Hypokalemia?we will replete today. Possible COPD exacerbation. - Will continue duoneb q4 hours - Prednisone 40 daily. We will continue for now. Consistent carb diet Sliding scale DVT prophylaxis: Heparin Patient was on home hospice, DNR/DNI As per admission note does not want to be institutionalized, planning to get treatment in the hospital and then go back home Patient has agreed to go to a senior living facility. museum attendant are working on it and have sent referrals to a few places. Attestations Medical Necessity Statement*: Greater than then 24-hour stay. Awaiting placement to senior living facility. Medically most likely by tomorrow he will be stable for discharge. WBC count is still high. Due to high white count he will still need to be in the hospital for tonight. 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 coli infection Z86.19 Chronic kidney disease, stage 3 N18.32 Chronic kidney disease stage 3 subtype: stage 3b (GFR 30-44)
[2021-06-18 18:04] LABS: Glucose Point of Care 131 mg/dL (70-110)
[2021-06-18] MEDS: insulin glargine 100 units/1 mL 10 UNIT SUBCUT (18:37)
--- NOTE | 2021-06-18 20:59 | PC.NURSE ---
Shift report received from Reyna HOOK. Patient awake in bed/ watching TV. Rates pain at a 7/10 PRN administered at 1839/ patient aware next available at 1040. O2 2L NC. RT in room at this time. Drake intact and draining dark khloe urine. IV patent. No other needs voiced at this time.
[2021-06-18 21:46] LABS: Glucose Point of Care 200 mg/dL (70-110)
[2021-06-19] VITALS (10 sets, daily range): BP systolic 121–146; BP diastolic 64–84; PULSE 64–98; RESP 16–22; TEMP 36.8–36.9; O2SAT 91–95
[2021-06-19] MEDS: heparin 5,000 unit/mL INJ 1 mL 5000 UNIT SUBCUT ×2 (01:25→12:54)
[2021-06-19] MEDS: ipratropium-albuterol 3 mL Neb INHALATION ×2 (03:11→09:52)
[2021-06-19 03:47] LABS: Basophils % 0.2 %; Eosinophils # 0.1 10^3/uL (0.0-0.8); Eosinophils % 0.5 %; Hematocrit 30.3 % (42.0-52.0); Hemoglobin 9.6 g/dL (11.7-16.6); Lymphocytes # 1.8 10^3/uL (0.8-4.8); Lymphocytes % 13.3 %; Mean Corpuscular HGB Conc 31.7 g/dL (30.0-36.0); Mean Corpuscular Hemoglobin 25.5 pg (28.0-34.0); Mean Corpuscular Volume 80.4 fl (80-94); Mean Platelet Volume 10.1 fL (7.4-10.4); Monocytes # 1.1 10^3/uL (0.2-0.9); Monocytes % 8.6 %; Neutrophils # 10.22 10^3/uL (1.8-7.7); Neutrophils % 76.7 %; Nucleated Red Blood Cells % 0 %; Platelet Count 239 10^3/cmm (130-400); Red Blood Count 3.77 10^6/uL (4.1-5.3); Red Cell Distribution Width 16.1 % (12.1-15.1); White Blood Count 13.3 10^3/uL (4.0-10.0)
[2021-06-19 04:10] LABS: Anion Gap 9.3 (5-19); Blood Urea Nitrogen 30 mg/dL (8-23); Carbon Dioxide 36 mmol/L (22-29); Chloride 94 mmol/L (98-107); Glucose 94 mg/dL (65-115); Magnesium 1.6 mg/dL (1.7-2.3); Osmolality Calculated 288 mOsm/kg (285-295); Potassium 3.3 mmol/L (3.5-5.1); Sodium 136 mmol/L (136-145)
[2021-06-19 07:08] LABS: Glucose Point of Care 111 mg/dL (70-110)
[2021-06-19] MEDS: HYDROcodone-acetaminophen 5-325 mg Tablet 1 TAB PO ×2 (09:04→15:48)
[2021-06-19] MEDS: metoprolol tartrate 25 mg Tablet 12.5 MG PO (09:04)
[2021-06-19] MEDS: ALPRAZolam 0.5 mg Tablet PO ×2 (09:04→15:51)
[2021-06-19] MEDS: predniSONE 20 mg Tablet 40 MG PO (09:04)
[2021-06-19] MEDS: lidocaine 5% Patch 1 PATCH TOPICAL (09:05)
[2021-06-19] MEDS: pantoprazole DR 40 mg Tablet PO (09:05)
[2021-06-19] MEDS: citalopram 20 mg Tablet PO (09:05)
[2021-06-19] MEDS: aspirin 81 mg EC Tablet PO (09:05)
[2021-06-19] MEDS: budesonide 0.5 mg/2 mL Neb INHALATION (09:52)
[2021-06-19] MEDS: linezolid 600 mg Tablet PO (10:54)
[2021-06-19 11:35] LABS: Glucose Point of Care 196 mg/dL (70-110)
--- NOTE | 2021-06-19 11:37 | P.DS_ITS ---
Discharge Providers Date of Admission: 06/15/21 13:52 Date of Discharge: June 19, 2021 Attending Provider at Admission: Arsalan Vinson MD Attending Provider at Discharge: Angelica Gardner MD Primary Care Provider: Thierno Pradhan Diagnoses at Discharge Discharge Diagnosis (1) Acute kidney injury superimposed on chronic kidney disease: Status: Resolved (2) Fall: Status: Acute (3) Diarrhea: Status: Resolved (4) Arm laceration: Status: Acute (5) Abrasion of arm, right: Status: Acute (6) Chronic indwelling Drake catheter: Status: Chronic (7) Diabetes mellitus, type II: Status: Chronic Qualifiers: Chronic kidney disease stage: stage 3 (moderate) Diabetes mellitus complication detail: with chronic kidney disease Diabetes mellitus complication status: with kidney complications Diabetes mellitus brush painter insulin use: without brush painter use Qualified Code(s): E11.22 - Type 2 diabetes mellitus with diabetic chronic kidney disease; N18.3 - Chronic kidney disease, stage 3 (moderate) (8) COPD (chronic obstructive pulmonary disease): Status: Chronic Qualifiers: COPD type: unspecified COPD Qualified Code(s): J44.9 - Chronic obstructive pulmonary disease, unspecified (9) Hypertension: Status: Chronic Qualifiers: Hypertension type: essential hypertension Qualified Code(s): I10 - Essential (primary) hypertension (10) History of ESBL E. coli infection: Status: Chronic Permanent problem details: urine, history of ESBL E. coli bacteremia as well (11) Chronic kidney disease, stage 3: Status: Chronic Qualifiers: Chronic kidney disease stage 3 subtype: stage 3b (GFR 30-44) Qualified Code(s): N18.32 - Chronic kidney disease, stage 3b Reason for Visit Reason for Visit: WEAKNESS Hospital Course Hospital Course [address] [address]Pvdhqer & Physical ReportSigned Patient: Vladimir Farnsworth WMR#: [id number]: 9Acct#:[id number]/Sex: 81 / MADM Date: 06/13/21Loc: [facility] Room/Bed: [address] [place] [address] Date: 06/13/21Attending Dr: Arsalan Vinson MD Report Number: [id number] Providers/Chief Complaint Admitting Physician: Arsalan Vinson MD Primary Care Provider: Erik Adkins DO Chief Complaint: WEAKNESS History of Present Illness as Per Dr. Vinson Vladimir Farnsworth is a 81 year old male who has multiple comorbidities, on home hospice secondary to that, presented to the hospital for weakness, lethargy and a fall. Patient is stating that for last 48 hours he has been experiencing diarrhea which he is attributing to use of a medication(he is unsure of the name). No fever or shortness of breath or chest pain. Patient is stating that he is not very mobile, uses 3 L of oxygen at home, tries to use a walker for ambulation, however yesterday while attempting to use a walker he fell on the floor. Family brought him to the ER, family stating that they are unable to take care of him at home because of his recurrent falls. He has degenerative vertebral disease with radiculopathy has had multiple falls in the past. Family and patient both do not prefer any fpc. Work-up in the ER did not show any fractures He has a chronic indwelling catheter , with pyuria noted on UA History ESBL And not sure why hepatitis and HIV work-up was done in the ER work-up consistent with MARY BETH, leukocytosis, no signs of sepsis Records reviewed: He has seen Dr. 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 He does have lumbar spinal stenosis and radiculopathy. No active focal deficit. Right and left forearm x-rays normal without any fractures, head CT negative, left and right tibia-fibula x-rays also unremarkable, right and left elbow x-ray unremarkable. He also had another ESBL UTI which is recurrant for him as well along with Staph epidermidis bactermia. He was treated for ESBL UTI with imipenem during inpatient stay and discharged on bactrim. FOr bacteremia he was treated for total of 7 days of linezolid. Patient does have chronic indwelling catheter. He also had MARY BETH most likely secondary to cardiorenal syndrome. He was diuresed with IV lasix. Once optimized, lasix was switched to oral. FOr this arm lacerations, bandages were removed in my presence and dressing change performed. DIscussed with wound care and placed recommendations for patient. Patient will follow up with wound care outpatient. Possible COPD exacerbation. given 5 days of prednisone. Patient decided to go to rehab and was discharged to [facility]. Physical Exam Narrative: EXAM NARRATIVE: General: Alert oriented, on 2 L nasal cannula. Chronically ill-appearing. HEENT:breathing comfortably, normal respiratory effort, does have periorbital edema Cardio: Regular rate, S1-S2 normal, no gross murmurs, does appear euvolemic. Respiratory: Decreased bilateral air entry, gross rhonchi and wheezes present throughout lung [place] in the posterior region. No crackles appreciated. GI: Abdomen soft, nontender, bowel sounds normoactive obese rounded abdomen Behavior: Appropriate and cooperative Extremities: no edema, no cyanosis. Upper extremities bilaterally wrapped on forearm area. Dressings changed. When dressing removed, superficial lacerations seen with some areas sutured. Recs placed after speaking to wound care. Discharge Data Data Completed and Pending: Completed Studies During Hospitalization Category Date Time Status CT abdomen pelvis wo con [id number] Stat Cat Scan 06/14/21 12:[address] head wo con* 7 0450 Urgent Cat Scan 06/13/21 12:05 Completed XR KUB portable 7 4018 Routine Exams 06/15/21 13:44 Completed XR chest 1V saniya ble [id number] Routine Exams 06/17/21 08:00 Completed XR elbow LT 2V 73 070 Urgent Exams 06/13/21 12:02 Completed XR elbow RT 2V 73 070 Urgent Exams 06/13/21 12:02 Completed XR forearm LT 2V 13807 Urgent Exams 06/13/21 13:06 Completed XR forearm RT 2V 71040 Urgent Exams 06/13/21 13:06 Completed XR tibia fibula L T 2V 52061 Urgent Exams 06/13/21 12:02 Completed XR tibia fibula R T 2V [id number] Urgent Exams 06/13/21 12:02 Completed Pending at discharge Category Date Time Status Blood Culture Sta t Lab 06/16/21 14:37 Results COVID [SARS Covid -2 Antigen] Routin e Lab 06/19/21 11:19 Uncollected Labs from last 24 hours 06/19/21 06/19/21 06/19/21 11:10 07:04 03:16 WBC RBC Hgb Hct MCV MCH MCHC RDW Plt Count MPV Neut % (Auto) Lymph % (Auto) [place] % (Auto) Eos % (Auto) Baso % (Auto) Neut # (Auto) Lymph # (Auto) [place] # (Auto) Eos # (Auto) Baso # (Auto) Nucleated RBC % (a uto) Nucleated RBCs # Sodium 136 Potassium 3.3 L Chloride 94 L Carbon Dioxide 36 H Anion Gap 9.3 BUN 30 H Creatinine 1.6 H GFR Calculation Not Reportable Glucose 94 POC Glucose 196 H 111 H Calculated Osmolal ity 288 Calcium 9.0 Magnesium 1.6 L 06/19/21 06/18/21 06/18/21 03:16 21:41 17:35 WBC 13.3 H RBC 3.77 L Hgb 9.6 L Hct 30.3 L MCV 80.4 MCH 25.5 L MCHC 31.7 RDW 16.1 H Plt Count 239 MPV 10.1 Neut % (Auto) 76.7 Lymph % (Auto) 13.3 [place] % (Auto) 8.6 Eos % (Auto) 0.5 Baso % (Auto) 0.2 Neut # (Auto) 10.22 H Lymph # (Auto) 1.8 [place] # (Auto) 1.1 H Eos # (Auto) 0.1 Baso # (Auto) 0.0 Nucleated RBC % (a uto) 0 Nucleated RBCs # 0.0 Sodium Potassium Chloride Carbon Dioxide Anion Gap BUN Creatinine GFR Calculation Glucose POC Glucose 200 H 131 H Calculated Osmolal ity Calcium Magnesium 06/18/21 11:48 WBC RBC Hgb Hct MCV MCH MCHC RDW Plt Count MPV Neut % (Auto) Lymph % (Auto) [place] % (Auto) Eos % (Auto) Baso % (Auto) Neut # (Auto) Lymph # (Auto) [place] # (Auto) Eos # (Auto) Baso # (Auto) Nucleated RBC % (a uto) Nucleated RBCs # Sodium Potassium Chloride Carbon Dioxide Anion Gap BUN Creatinine GFR Calculation Glucose POC Glucose 192 H Calculated Osmolal ity Calcium Magnesium Vitals: Last Vital Signs Temp 98.4 F 06/19/21 07:51 Pulse 80 06/19/21 10:02 Resp 22 H 06/19/21 09:53 BP 128/64 12/10/21 07:51 Pulse Ox 94 06/19/21 09:53 Discharge Plan Discharge Patient Disposition: Xfer SNF Condition: Stable Prescriptions: Continued ipratropium-albuterol 0.5 mg-3 mg(2.5 mg base)/3 mL solution for nebulization 2.5 ml INHALATION Q4H PRN (Reason: Shortness Of Breath Or Wheezing) RF: 0 furosemide 40 mg Tablet 60 mg PO DAILY@0800 Qty: 45 RF: 0 metoprolol tartrate 25 mg Tablet 12.5 mg PO BID@0900,2100 Qty: 30 RF: 0 ipratropium-albuterol 0.5 mg-3 mg(2.5 mg base)/3 mL solution for nebulization 3 ml inhalation Q6H Qty: 180 RF: 0 budesonide 0.5 mg/2 mL suspension for nebulization 0.5 mg inhalation BID Qty: 60 RF: 0 metformin 500 mg tablet 500 mg PO BID Qty: 60 RF: 0 gabapentin [Neurontin] 100 mg capsule 100 mg PO TID Qty: 90 RF: 0 aspirin 81 mg tablet,delayed release (DR/EC) 81 mg PO DAILY Qty: 30 RF: 0 pantoprazole 40 mg tablet,delayed release (DR/EC) 40 mg PO QAM Qty: 30 RF: 0 lidocaine 5 % adhesive patch,medicated See Rx Instructions .ROUTE .COMPLEX Qty: 30 RF: 0 promethazine 25 mg tablet 25 mg PO Q6H PRN (Reason: Nausea And Vomiting) Qty: 10 RF: 0 sertraline 50 mg Tablet 50 mg PO BEDTIME Qty: 30 RF: 0 potassium chloride 20 mEq tablet extended release 20 meq PO DAILY Qty: 30 RF: 0 Lantus Solostar U-100 Insulin 100 unit/mL (3 mL) insulin pen 10 unit SUBCUT QPM Qty: 15 RF: 0 (DME) blood-glucose meter Kit See Rx Instructions .Route Qty: 1 RF: 0 (DME) pen needle, diabetic [Lite Touch Insulin Pen [place]] 31 gauge x 1/4 needle See Rx Instructions .Route Qty: 50 RF: 0 alprazolam [Xanax] 0.5 mg tablet 0.5 mg PO TID PRN (Reason: anxiety) Qty: 20 RF: 0 oxycodone 15 mg Tablet 15 mg PO Q4H PRN (Reason: Pain) RF: 0 citalopram 20 mg Tablet 20 mg PO DAILY RF: 0 hydrocodone-acetaminophen 5-325 mg tablet 1 tab PO Q4H PRN (Reason: pain) RF: 0 Held acetaminophen [Tylenol Extra Strength] 500 mg Tablet 1,000 mg PO PRN RF: 0 Hold Instructions: see pcp diphenoxylate-atropine [Lomotil] 2.5-0.025 mg tablet 1 tab PO BID PRN (Reason: diarrhea) Qty: 7 RF: 0 Hold Instructions: no longer having diarrhea prednisone 5 mg tablet 5 mg PO DAILY RF: 0 Hold Instructions: see pcp Discharge Orders: Discharge Order (Routine); Ordered 06/19/21 Ordered By: Angelica Gardner Other Ambulatory Orders: Basic Metabolic Panel (Routine) Timeframe: 20210714 Facility: [facility] - Location: Lab - Main Lab Ordered By: Angelica Gardner Complete Blood Count w/Auto (Routine) Timeframe: 20210623 Location: Determined by Patient Ordered By: Angelica Gardner Referrals: [facility] [place] [Outside] Erik Adkins DO [Physician] - 4-7 days WOUND CARE CLINIC, [Staff Physician] - 1 week Discharge Diet: Cardiac and Diabetic Discharge Activity: Resume usual activity Patient Instructions: Laceration (ED), Abrasion (ED), Opioid Safety Activity Restrictions/Additional Instructions: Your suture(s) need to be removed in 10 to 14 days. Wash arm wounds with warm saline, apply triple antibiotic ointment, apply telfa and wrap with kerlix. Follow up in wound care clinic in 1 week. Come back if you have any new or concerning issues. Discharge Attestations Time Spent in Discharge Care*: less than 30 min Status at Discharge: Cognitive status at discharge: cognitively intact , Behavioral status at discharge: cooperative , Quality Metrics Clinical Quality Measures During this hospital stay, did patient experience: None Coding Level of Care Code Acute g DC note Diagnoses Acute kidney injury superimposed on chronic kidney disease N17.9; N18.9 Fall W19.XXXA Diarrhea R19.7 Arm laceration S41.119A Abrasion of arm, right S40.811A Chronic indwelling Drake catheter Z96.0 Diabetes mellitus, type II E11.22; N18.3 Chronic kidney disease stage: stage 3 (moderate) Diabetes mellitus complication detail: with chronic kidney disease Diabetes mellitus complication status: with kidney complications Diabetes mellitus assisted insulin use: without brush painter use COPD (chronic obstructive pulmonary disease) J44.9 COPD type: unspecified COPD Hypertension I10 Hypertension type: essential hypertension History of ESBL E. coli infection Z86.19 Chronic kidney disease, stage 3 N18.32 Chronic kidney disease stage 3 subtype: stage 3b (GFR 30-44)
--- NOTE | 2021-06-19 11:49 | PC.NURSE ---
Patient refusing covid swab prior to discharge to nursing care facility, states, I want to go home, I will not go to [facility] or take that swab. case management and charge nurse notified.
[2021-06-19] MEDS: insulin lispro 100 unit/1 mL SUBCUT (12:54)
--- NOTE | 2021-06-19 14:07 | PC.CHAP ---
Pastoral Care Encounter/Spiritual Assessment Type of Contact [] Declined still operator gin visit [] Patient/Family/Request visit [] Outpatient visit [xx] Follow-up visit [] Physician referral [] Code/Alert [] Routine visit [] Staff referral [] Actively dying [] Patient sleeping [] Family support [] [] Out of room [] Palliative care [] [x] Receiving care in room [] Pre-surgical visit [] Trauma [] Long length of stay [] ICU visit [] Other: Relational/Emotional Strength [] Patient feels connected with others/family/visitors/staff [] Distress [] Loneliness/isolation [] Abandonment Spirituality of Patient [] Person of Rosio [] Attends Confucianism of their Rosio [] Believes in Prayer [] Reads Bible or Holiness materials [] There are Spiritual issues to be addressed Plaster Model And Mold Maker Interventions [] Prayer [] Active listening [] Non-anxious presence [] Spiritual/emotional support [] Crisis/trauma care [] Spiritual counseling [] Bereavement support [] Provided bereavement packet [] Provided Bible/devotional materials [] Provided toy/stuffed animal, coloring book to patient or family member [] Provided Communion [] Anointing/[place] [] Salvation [] Completed spiritual assessment [] Other: Impact on Illness or Injury [] Angry [] Fearful [] Anxious [] Often cries [] Exhaustion [] Unable to work [] Unable to attend holiness [] Unable to walk/stand [] Unable to read [] Unable to drive [] Unable to eat/drink [] Unable to sleep [] Unable to be with family [] Patient intubated [] Other: Summary Follow up needed later. Time spent with patient
--- NOTE | 2021-06-19 14:15 | PC.NURSE ---
Report called to [facility] to October. denies further questions or concerns.
[2021-06-19 15:24] LABS: SARS Covid-2 Antigen Negative (Negative)
--- NOTE | 2021-06-19 15:59 | PC.NURSE ---
Drake catheter chronic changed prior to discharge using sterile technique, denies pain, tolerated well.
== END 2021-06-19 16:08 | disposition skilled nursing facility (03) ==
LOC: ER 16:29 → MEDSURG 17:03
PROVIDERS: Admitting Provider Internal Medicine; Emergency Provider Emergency Medicine; PCP Family Medicine; Visit Provider Internal Medicine
DX: N39.0 Urinary tract infection, site not specified (principal); I12.9 Hypertensive chronic kidney disease with stage 1 through stage 4 chronic kidney disease, or unspecified chronic kidney disease; E11.22 Type 2 diabetes mellitus with diabetic chronic kidney disease; N18.30 Chronic kidney disease, stage 3 unspecified; N17.9 Acute kidney failure, unspecified; I35.0 Nonrheumatic aortic (valve) stenosis; J44.9 Chronic obstructive pulmonary disease, unspecified; R19.7 Diarrhea, unspecified; I11.0 Hypertensive heart disease with heart failure; I50.30 Unspecified diastolic (congestive) heart failure; S41.119A Laceration without foreign body of unspecified upper arm, initial encounter; S40.811A Abrasion of right upper arm, initial encounter; W19.XXXA Unspecified fall, initial encounter; Z79.82 Long term (current) use of aspirin; Z79.4 Long term (current) use of insulin; Z79.899 Other long term (current) drug therapy; Z96.0 Presence of urogenital implants; Z66 Do not resuscitate; R53.1 Weakness
CPT/HCPCS: 36415; 36416; 70450; 71045; 73070; 73090; 73590; 74018; 74176; 80048; 80053; 80074; 81001; 82607; 82962; 83735; 83880; 85025; 87040; 87077; 87086; 87186; 87205; 87426; 87493; 87536; 87806; 90471; 90715; 94640; 96365; 96372; 96375; 97110; 97116; 97161; 97165; 97530; 97535; 99285; G0378; J0696; J0743; J1100; J1644; J1815 ×2; J1940; J2020; J2405; J2543; J3475; J7030; J7040; J7512; J7626

== ENCOUNTER 2021-07-01 09:54 | Outpatient (CLI) | payer MEDICARE, MEDICAID, SELFPAY | END 2021-07-01 09:55 | disposition home or self-care (01) | LOC: WOUND 09:55 | PROVIDERS: PCP Family Medicine; Visit Provider Nurse Practitioner Family | DX: S51.812A Laceration without foreign body of left forearm, initial encounter (principal); S51.811A Laceration without foreign body of right forearm, initial encounter; W19.XXXA Unspecified fall, initial encounter; S01.81XA Laceration without foreign body of other part of head, initial encounter; X58.XXXA Exposure to other specified factors, initial encounter | CPT/HCPCS: G0463 ==

== ENCOUNTER 2021-07-15 15:49 | Outpatient (CLI) | payer MEDICARE, MEDICAID, SELFPAY | END 2021-07-15 15:50 | disposition home or self-care (01) | LOC: WOUND 15:50 | PROVIDERS: PCP Family Medicine; Visit Provider Thoracic Surgery (Cardiothoracic Vascular Surgery) | DX: I96 Gangrene, not elsewhere classified (principal); S50.812A Abrasion of left forearm, initial encounter; S50.811A Abrasion of right forearm, initial encounter; X58.XXXA Exposure to other specified factors, initial encounter; J44.9 Chronic obstructive pulmonary disease, unspecified; E11.9 Type 2 diabetes mellitus without complications | CPT/HCPCS: 11042; 11045; 97597; 97598 ==

== ENCOUNTER 2021-07-30 16:00 | Inpatient (IN) | payer MEDICARE, MEDICAID, SELFPAY ==
[2021-07-30] VITALS (13 sets, daily range): BP systolic 116–143; BP diastolic 62–95; PULSE 75–102; RESP 12–26; TEMP 36.8; O2SAT 92–100
--- NOTE | 2021-07-30 16:02 | XRR_ITS ---
PROCEDURE INFORMATION: Exam: XR Chest Exam date and time: 07/30/2021 4:02 PM Age: 81 years old Clinical indication: Shortness of breath; Prior surgery; Surgery type: Open heart, defib; Additional info: SOB TECHNIQUE: Imaging protocol: XR of the chest. Views: 1 view. COMPARISON: CR XR chest 1V portable [id number] 06/17/2021 6:22 AM FINDINGS: Lungs: No acute infiltrate. Pleural spaces: Calcified pleural plaques are unchanged. Heart/Mediastinum: Unremarkable. No cardiomegaly. Diaphragm: There is chronic elevation of the right diaphragm. Bones/joints: Ligament anchors in the left humeral head. XR/XR chest 1V portable [id number] IMPRESSION: 1. No acute findings 2. Chronic elevated right diaphragm
--- NOTE | 2021-07-30 16:19 | ECG_ITS ---
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 Measurements Intervals [place] Rate: 75 P: 65 UT: 170 QRS: 105 QRSD: 102 T: 45 QT: 392 QTc: 438 Interpretive Statements SINUS RHYTHM RIGHT AXIS DEVIATION [QRS AXIS > 100] Compared to ECG 01/17/2021 03:19:00 Right-axis deviation now present Atrial abnormality no longer present Electronically Signed On 07-30-2021 19:12:42 SHOE SALESMAN by Bhavya Jimenes M.D. [email or web address]
--- NOTE | 2021-07-30 16:22 | ED_ITS ---
Documented by User: Ishaan Mulligan MD 07/30/21 17:49 HPI - SOB/Dyspnea General: Chief Complaint: Shortness of Breath/Dyspnea Stated Complaint: DYSPNEA Time Seen by Provider: 07/30/21 16:09 Source: patient and EMS Mode of arrival: EMS Limitations: no limitations History of Present Illness: HPI Narrative: Patient states that he has had increasing shortness of breath over the last 24 hours or so. Denies any fever. Cough has been productive of white sputum. Poor appetite today has not been eating much today due to his shortness of breath. He normally wears 3 L/min at home via concentrator. He does have possible history of COPD CHF type 2 diabetes mild aortic stenosis hypertension and chronic kidney disease stage III. Patient denies any fever. Patient was given a DuoNeb by EMS in route to the hospital. Oxygen saturation increased from 90% on 3 L to 99% on 4 L. MD elicited complaint: shortness of breath and cough Pertinent past history: COPD, congestive heart failure and diabetes Onset (ago): hour(s) (24) Timing: other (Waxing and waning. Presently mildly improved) Severity: moderate Exacerbating factors: nothing Relieving factors: oxygen and bronchodilators Known history of: COPD, congestive heart failure and diabetes Associated symptoms: Reports chest congestion and cough; Deny abdominal pain, chest pain, diaphoresis, dizziness, extremity pain, fever(s), hemoptysis, lightheadedness, myalgias, nausea, palpitations or vomiting Treatment prior to arrival: oxygen and bronchodilator Related Data: Home oxygen amount: 3 liters Review of Systems Const: Denies: fever(s), chills, body aches or diaphoresis Eyes: Denies: change in vision ENMT: Denies: throat pain Card: Denies: chest pain, palpitations or lightheadedness Resp: Reports: dyspnea, productive cough, wheezing and chest congestion; Denies: hemoptysis GI: Denies: abdominal pain, nausea or vomiting : Denies: flank pain Musc: Denies: neck pain, back pain or extremity pain Skin/Breast: Denies: rash or pruritus Neuro: Denies: headache(s) or dizziness Psych: Denies: anxiety Riky/Lymph: Denies: enlarged lymph nodes PFSH ED PFSH: Medical History Aortic stenosis, mild BPH with urinary obstruction CHF (congestive heart failure) Chronic indwelling Drake catheter Chronic kidney disease, stage 3 COPD (chronic obstructive pulmonary disease) COPD (chronic obstructive pulmonary disease) Diabetes mellitus, type II Erectile dysfunction History of ESBL E. coli infection urine, history of ESBL E. 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 Social History Smoking and tobacco status: never smoked Alcohol intake: never Marital status: / Current occupational status: retired and disabled Physical Exam Const: COMMON NORMALS: patient oriented x3, no limitations and well nourished GENERAL APPEARANCE: cooperative and comfortable OTHER: Mild respiratory distress. Patient has audible expiratory wheezes HENMT: COMMON NORMALS: normocephalic and atraumatic HEAD & SCALP: normocephalic and atraumatic FACE & SINUS: normal facial exam Eye: COMMON NORMALS: EOMs intact bilaterally Neck/C-Spine: COMMON NORMALS: full ROM, no lymphadenopathy, supple and no meningeal signs GENERAL: Yes normal visual inspection Lymph: LYMPHATIC: no lymphadenopathy noted Chest: COMMONS NORMALS: normal inspection of the chest and normal palpation of entire chest wall CHEST: No Ecchymosis present and No rash Resp: COMMON NORMALS: No retractions EFFORT & INSPECTION: Yes respiratory distress (Mild) AUSCULTATION: wheezes expiratory wheezes, inspiratory wheezes and throughout Cardio: COMMON NORMALS: regular rate, regular rhythm and Peripheral pulses 2+ throughout JUGULAR VENOUS DISTENTION: no JVD RATE: regular rate RHYTHM: regular rhythm PERIPHERAL PULSES: Peripheral pulses 2+ throughout OTHER: 1+ pitting edema lower extremities bilaterally. GI: COMMON NORMALS: Normal to inspection, nondistended, normoactive bowel sounds present and non-tender : COMMON NORMALS: Yes no CVA tenderness BLADDER/KIDNEY EXAM: Yes no CVA tenderness Back/Pelvis: COMMON NORMALS: no CVA tenderness Extremity: COMMON NORMALS: full ROM and capillary refill normal OTHER: 1+ pitting edema of the lower extremities bilaterally. Patient has healing abrasions to her left forearm. Reportedly patient had extensive laceration to left forearm in June. Neuro: COMMON NORMALS: patient oriented x3, CN's II-XII intact bilaterally, moves all extremities, no focal motor deficits and no sensory deficits noted MENINGEAL SIGNS: Yes no meningeal signs Psych: COMMON NORMALS: mental status grossly normal, Normal thought process present and cooperative THOUGHT PROCESS: Normal thought process present Skin: OTHER: Patient has healing abrasions to the left forearm. Course Vital Signs: Vital signs: Vital Signs Pulse Rate 84 07/30/21 20:30 Respiratory Rate 22 H 07/30/21 20:30 Blood Pressure 124/95 07/30/21 20:30 Pulse Oximetry 98 07/30/21 20:30 MDM - SOB/Dyspnea Medical Records: Attestation: I reviewed the patient's medical records. Medical records narrative: See previous ER visit. 1745: Care transition to Dr. Sadler at shift change. Lab Data: Attestation: I reviewed the patient's lab results. Labs: Lab Results 07/30/21 07/30/21 07/30/21 17:14 17:14 17:14 WBC 18.5 10^3/uL H 10 ^3/uL (4.0-10.0) RBC 3.95 10^6/uL L 10 ^6/uL (4.1-5.3) Hgb 9.4 g/dL L g/dL (11.7-16.6) Hct 32.1 % L % (42.0-52.0) MCV 81.3 fl fl (80-94) MCH 23.8 pg L pg (28.0-34.0) MCHC 29.3 g/dL L g/dL (30.0-36.0) RDW 16.7 % H % (12.1-15.1) Plt Count 323 10^3/cmm 10^3 /cmm (130-400) MPV 9.9 fL fL (7.4-10.4) Neut % (Auto) 82.5 % % Lymph % (Auto) 7.8 % % [place] % (Auto) 4.6 % % Eos % (Auto) 4.0 % % Baso % (Auto) 0.5 % % Neut # (Auto) 15.27 10^3/uL H 1 0^3/uL (1.8-7.7) Lymph # (Auto) 1.5 10^3/uL 10^3/ uL (0.8-4.8) [place] # (Auto) 0.9 10^3/uL 10^3/ uL (0.2-0.9) Eos # (Auto) 0.8 10^3/uL 10^3/ uL (0.0-0.8) Baso # (Auto) 0.1 10^3/uL 10^3/ uL (0.0-0.1) Nucleated RBC % (a uto) 0 % % Nucleated RBCs # 0.0 /100WBC /100W BC Specimen Type Sample Site ABG pH ABG pCO2 ABG pO2 ABG HCO3 ABG Base Excess Shaun Test Hematocrit O2 Delivery Device O2 Liters/Min Barber Or Beauty [employer] Manager ID Sodium 137 mmol/L mmol/L (136-145) Potassium 4.7 mmol/L mmol/L (3.5-5.1) Chloride 93 mmol/L L mmol/ L (98-107) Carbon Dioxide 30 mmol/L H mmol/ L (22-29) Anion Gap 18.7 (5-19) BUN 20 mg/dL mg/dL (8-23) Creatinine 1.2 mg/dL mg/dL (0.7-1.2) GFR Calculation Not Reportable Glucose 120 mg/dL H mg/dL (65-115) Calculated Osmolal ity 288 mOsm/kg mOsm/ kg (285-295) Lactate 1.0 mmol/L mmol/L (0.5-2.2) Calcium 8.8 mg/dL mg/dL (8.5-10.5) Total Bilirubin 0.2 mg/dL mg/dL (0.15-1.2) AST 14 U/L U/L (0-40) ALT 9 U/L U/L (0-41) Alkaline Phosphata se 121 IU/L IU/L (40-130) Troponin T Baselin e Troponin T 120 Min [place] Troponin T NT-Pro-B Natriuret Pep 717 pg/mL H pg/mL (0-450) Total Protein 6.6 g/dL g/dL (6.6-8.7) Albumin 3.6 g/dL g/dL (3.5-5.2) Globulin 3.0 g/dL g/dL (1.3-4.6) SARS-CoV-2 Ag (Rap id) 07/30/21 07/30/21 07/30/21 17:14 17:46 19:31 WBC RBC Hgb Hct MCV MCH MCHC RDW Plt Count MPV Neut % (Auto) Lymph % (Auto) [place] % (Auto) Eos % (Auto) Baso % (Auto) Neut # (Auto) Lymph # (Auto) [place] # (Auto) Eos # (Auto) Baso # (Auto) Nucleated RBC % (a uto) Nucleated RBCs # Specimen Type Sample Site ABG pH ABG pCO2 ABG pO2 ABG HCO3 ABG Base Excess Shaun Test Hematocrit O2 Delivery Device O2 Liters/Min Barber Or Beauty Shop Manager ID Sodium Potassium Chloride Carbon Dioxide Anion Gap BUN Creatinine GFR Calculation Glucose Calculated Osmolal ity Lactate Calcium Total Bilirubin AST ALT Alkaline Phosphata se Troponin T Baselin e 85 ng/L H ng/L (0-15) Troponin T 120 Min [place] 87.56 ng/L H ng/L (0-15) Delta Troponin T 2.56 ABS# ABS# (0-10) NT-Pro-B Natriuret Pep Total Protein Albumin Globulin SARS-CoV-2 Ag (Rap id) Negative (Negative) 07/30/21 20:18 WBC RBC Hgb Hct MCV MCH MCHC RDW Plt Count MPV Neut % (Auto) Lymph % (Auto) [place] % (Auto) Eos % (Auto) Baso % (Auto) Neut # (Auto) Lymph # (Auto) [place] # (Auto) Eos # (Auto) Baso # (Auto) Nucleated RBC % (a uto) Nucleated RBCs # Specimen Type Arterial Sample Site Brachial, right ABG pH 7.33 L (7.35-7.45) ABG pCO2 69.9 mmHg H* mmHg (35-45) ABG pO2 83.2 mmHg mmHg (80.0-100.0) ABG HCO3 37.2 mmol/L H mmo l/L (22-26) ABG Base Excess 9.5 mmol/L H mmol /L (-2.0-2.0) Shaun Test N/a Hematocrit 29.5 % L % (42-52) O2 Delivery Device Nc O2 Liters/Min 3.0 % % Barber Or Beauty Shop Manager ID [id number] Sodium Potassium Chloride Carbon Dioxide Anion Gap BUN Creatinine GFR Calculation Glucose Calculated Osmolal ity Lactate Calcium Total Bilirubin AST ALT Alkaline Phosphata se Troponin T Baselin e Troponin T 120 Min [place] Troponin T NT-Pro-B Natriuret Pep Total Protein Albumin Globulin SARS-CoV-2 Ag (Rap id) Imaging Data^: CXR: Attestation: I personally reviewed and interpreted this imaging study as follows: My impression: Mild interstitial disease bilaterally. The infiltrate in the right middle lobe of the lung has cleared since June. EKG Data^: EKG 1: Attestation: I personally reviewed and interpreted this EKG as follows: EKG Interpretation Date: 07/30/21 EKG interpretation time: 16:58 Interpretation: Normal sinus rhythm with heart rate of 75. Borderline right axis. Normal ST segments. Normal T waves. Normal QRS. Normal QT interval. Discharge Plan Discharge Admit Provider: Antwon Ibarra Clinical Impression: COPD (chronic obstructive pulmonary disease) Qualifiers: COPD type: COPD with acute exacerbation Qualified Code(s): J44.1 - Chronic obstructive pulmonary disease with (acute) exacerbation Condition: Stable Coding Level of Care Code ED Desktop Support Consultant for Chg Fwd Exam Comprehensive Documented by User: Jarrett Sadler MD 07/30/21 21:29 HPI - SOB/Dyspnea General: Chief Complaint: Shortness of Breath/Dyspnea Stated Complaint: DYSPNEA Time Seen by Provider: 07/30/21 16:09 [facility] ED PFSH: Medical History Aortic stenosis, mild BPH with urinary obstruction CHF (congestive heart failure) Chronic indwelling Drake catheter Chronic kidney disease, stage 3 COPD (chronic obstructive pulmonary disease) COPD (chronic obstructive pulmonary disease) Diabetes mellitus, type II Erectile dysfunction History of ESBL E. coli infection urine, history of ESBL E. 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 Social History Smoking and tobacco status: never smoked Alcohol intake: never Marital status: / Current occupational status: retired and disabled Course Vital Signs: Vital signs: Vital Signs Pulse Rate 84 07/30/21 20:30 Respiratory Rate 22 H 07/30/21 20:30 Blood Pressure 124/95 07/30/21 20:30 Pulse Oximetry 98 07/30/21 20:30 MDM - SOB/Dyspnea MDM Narrative: Medical decision making narrative: Patient presents here with COPD exacerbation along with hypercapnia does have slightly elevated white count we will treat for possible pneumonia patient started on BiPAP is doing well here is stable for admission at this time I spoke to hospitalist who will admit. Lab Data: Labs: Lab Results 07/30/21 07/30/21 07/30/21 17:14 17:14 17:14 WBC 18.5 10^3/uL H 10 ^3/uL (4.0-10.0) RBC 3.95 10^6/uL L 10 ^6/uL (4.1-5.3) Hgb 9.4 g/dL L g/dL (11.7-16.6) Hct 32.1 % L % (42.0-52.0) MCV 81.3 fl fl (80-94) MCH 23.8 pg L pg (28.0-34.0) MCHC 29.3 g/dL L g/dL (30.0-36.0) RDW 16.7 % H % (12.1-15.1) Plt Count 323 10^3/cmm 10^3 /cmm (130-400) MPV 9.9 fL fL (7.4-10.4) Neut % (Auto) 82.5 % % Lymph % (Auto) 7.8 % % [place] % (Auto) 4.6 % % Eos % (Auto) 4.0 % % Baso % (Auto) 0.5 % % Neut # (Auto) 15.27 10^3/uL H 1 0^3/uL (1.8-7.7) Lymph # (Auto) 1.5 10^3/uL 10^3/ uL (0.8-4.8) [place] # (Auto) 0.9 10^3/uL 10^3/ uL (0.2-0.9) Eos # (Auto) 0.8 10^3/uL 10^3/ uL (0.0-0.8) Baso # (Auto) 0.1 10^3/uL 10^3/ uL (0.0-0.1) Nucleated RBC % (a uto) 0 % % Nucleated RBCs # 0.0 /100WBC /100W BC Specimen Type Sample Site ABG pH ABG pCO2 ABG pO2 ABG HCO3 ABG Base Excess Shaun Test Hematocrit O2 Delivery Device O2 Liters/Min Barber Or Beauty [employer] Manager ID Sodium 137 mmol/L mmol/L (136-145) Potassium 4.7 mmol/L mmol/L (3.5-5.1) Chloride 93 mmol/L L mmol/ L (98-107) Carbon Dioxide 30 mmol/L H mmol/ L (22-29) Anion Gap 18.7 (5-19) BUN 20 mg/dL mg/dL (8-23) Creatinine 1.2 mg/dL mg/dL (0.7-1.2) GFR Calculation Not Reportable Glucose 120 mg/dL H mg/dL (65-115) Calculated Osmolal ity 288 mOsm/kg mOsm/ kg (285-295) Lactate 1.0 mmol/L mmol/L (0.5-2.2) Calcium 8.8 mg/dL mg/dL (8.5-10.5) Total Bilirubin 0.2 mg/dL mg/dL (0.15-1.2) AST 14 U/L U/L (0-40) ALT 9 U/L U/L (0-41) Alkaline Phosphata se 121 IU/L IU/L (40-130) Troponin T Baselin e Troponin T 120 Min [place] Troponin T NT-Pro-B Natriuret Pep 717 pg/mL H pg/mL (0-450) Total Protein 6.6 g/dL g/dL (6.6-8.7) Albumin 3.6 g/dL g/dL (3.5-5.2) Globulin 3.0 g/dL g/dL (1.3-4.6) SARS-CoV-2 Ag (Rap id) 07/30/21 07/30/21 07/30/21 17:14 17:46 19:31 WBC RBC Hgb Hct MCV MCH MCHC RDW Plt Count MPV Neut % (Auto) Lymph % (Auto) [place] % (Auto) Eos % (Auto) Baso % (Auto) Neut # (Auto) Lymph # (Auto) [place] # (Auto) Eos # (Auto) Baso # (Auto) Nucleated RBC % (a uto) Nucleated RBCs # Specimen Type Sample Site ABG pH ABG pCO2 ABG pO2 ABG HCO3 ABG Base Excess Shaun Test Hematocrit O2 Delivery Device O2 Liters/Min [employer] Manager ID Sodium Potassium Chloride Carbon Dioxide Anion Gap BUN Creatinine GFR Calculation Glucose Calculated Osmolal ity Lactate Calcium Total Bilirubin AST ALT Alkaline Phosphata se Troponin T Baselin e 85 ng/L H ng/L (0-15) Troponin T 120 Min [place] 87.56 ng/L H ng/L (0-15) Delta Troponin T 2.56 ABS# ABS# (0-10) NT-Pro-B Natriuret Pep Total Protein Albumin Globulin SARS-CoV-2 Ag (Rap id) Negative (Negative) 07/30/21 20:18 WBC RBC Hgb Hct MCV MCH MCHC RDW Plt Count MPV Neut % (Auto) Lymph % (Auto) [place] % (Auto) Eos % (Auto) Baso % (Auto) Neut # (Auto) Lymph # (Auto) [place] # (Auto) Eos # (Auto) Baso # (Auto) Nucleated RBC % (a uto) Nucleated RBCs # Specimen Type Arterial Sample Site Brachial, right ABG pH 7.33 L (7.35-7.45) ABG pCO2 69.9 mmHg H* mmHg (35-45) ABG pO2 83.2 mmHg mmHg (80.0-100.0) ABG HCO3 37.2 mmol/L H mmo l/L (22-26) ABG Base Excess 9.5 mmol/L H mmol /L (-2.0-2.0) Shaun Test N/a Hematocrit 29.5 % L % (42-52) O2 Delivery Device Nc O2 Liters/Min 3.0 % % Barber Or Beauty Shop Manager ID [id number] Sodium Potassium Chloride Carbon Dioxide Anion Gap BUN Creatinine GFR Calculation Glucose Calculated Osmolal ity Lactate Calcium Total Bilirubin AST ALT Alkaline Phosphata se Troponin T Baselin e Troponin T 120 Min [place] Troponin T NT-Pro-B Natriuret Pep Total Protein Albumin Globulin SARS-CoV-2 Ag (Rap id) Discharge Plan Discharge Admit Provider: Antwon Ibarra Clinical Impression: COPD (chronic obstructive pulmonary disease) Qualifiers: COPD type: COPD with acute exacerbation Qualified Code(s): J44.1 - Chronic obstructive pulmonary disease with (acute) exacerbation Condition: Stable Coding Level of Care Code ED Desktop Support Consultant for Andriy Fwd Exam Comprehensive
[2021-07-30] MEDS: ipratropium-albuterol 3 mL Neb INHALATION ×2 (16:59→23:41)
[2021-07-30 17:26] LABS: Basophils # 0.1 10^3/uL (0.0-0.1); Basophils % 0.5 %; Eosinophils # 0.8 10^3/uL (0.0-0.8); Hematocrit 32.1 % (42.0-52.0); Hemoglobin 9.4 g/dL (11.7-16.6); Lymphocytes # 1.5 10^3/uL (0.8-4.8); Lymphocytes % 7.8 %; Mean Corpuscular HGB Conc 29.3 g/dL (30.0-36.0); Mean Corpuscular Hemoglobin 23.8 pg (28.0-34.0); Mean Corpuscular Volume 81.3 fl (80-94); Mean Platelet Volume 9.9 fL (7.4-10.4); Monocytes # 0.9 10^3/uL (0.2-0.9); Monocytes % 4.6 %; Neutrophils # 15.27 10^3/uL (1.8-7.7); Neutrophils % 82.5 %; Nucleated Red Blood Cells % 0 %; Platelet Count 323 10^3/cmm (130-400); Red Blood Count 3.95 10^6/uL (4.1-5.3); Red Cell Distribution Width 16.7 % (12.1-15.1); White Blood Count 18.5 10^3/uL (4.0-10.0)
[2021-07-30 18:22] LABS: Troponin(5th) Baseline 85 ng/L (0-15)
[2021-07-30 18:30] LABS: Alanine Aminotransferase 9 U/L (0-41); Albumin Level 3.6 g/dL (3.5-5.2); Alkaline Phosphatase 121 IU/L (40-130); Anion Gap 18.7 (5-19); Aspartate Amino Transferase 14 U/L (0-40); Blood Urea Nitrogen 20 mg/dL (8-23); Calcium 8.8 mg/dL (8.5-10.5); Carbon Dioxide 30 mmol/L (22-29); Chloride 93 mmol/L (98-107); Glucose 120 mg/dL (65-115); NT Pro B Type Natriuretic Pept 717 pg/mL (0-450); Osmolality Calculated 288 mOsm/kg (285-295); Potassium 4.7 mmol/L (3.5-5.1); Sodium 137 mmol/L (136-145); Total Bilirubin 0.2 mg/dL (0.15-1.2); Total Protein 6.6 g/dL (6.6-8.7)
[2021-07-30 18:32] LABS: SARS Covid-2 Antigen Negative (Negative)
[2021-07-30 20:11] LABS: Troponin 5 2HR 87.56 ng/L (0-15); Troponin 5 2HR Delta 2.56 ABS# (0-10)
[2021-07-30] MEDS: cefTRIAXone 1,000 MG in sodium chloride 0.9% (plus) 50 ML 100 MG IV (20:34)
[2021-07-30 20:43] LABS: ABG PH Result 7.33 (7.35-7.45); Arterial Blood Gas Hematocrit 29.5 % (42-52); Base Excess ABG 9.5 mmol/L (-2.0-2.0); Blood Gas Sample Site Brachial, right; Blood Gas Sample Type Arterial; HCO3 ABG 37.2 mmol/L (22-26); Oxygen Device NC; PO2 ABG 83.2 mmHg (80.0-100.0)
[2021-07-30 20:45] LABS: ABG PCO2 69.9 mmHg (35-45)
[2021-07-30] MEDS: azithromycin 500 MG in sodium chloride 0.9% 250 ML 250 MG IV (21:36)
--- NOTE | 2021-07-30 21:57 | PM.HP ---
Providers/Chief Complaint Admitting Physician: Antwon Ibarra MD Primary Care Provider: Thierno Pradhan Chief Complaint: DYSPNEA History of Present Illness Vladimir Farnsworth is a 81 year old male with past medical history of hypertension diabetes COPD On 3ls home oxygen,HFpEF, mild aortic stenosis , came in with chief complaint of worsening shortness of breath with productive white sputum in the last 24 hours, he denies any fever, chest pain, diaphoresis, nausea vomiting, abdominal pain. Upon arrival in the ER he was worked up for above-mentioned complaint. X-ray chest: No infiltrates no pulmonary vascular congestion chronically elevated right hemidiaphragm Pertinent labs: WBC 18.5 H&H 9.4/ 32 , platelet: 323 , serum sodium 137 serum potassium 4.7 BUN / serum creatinine 20/ 1.2 Troponin trend without significant delta , proBNP:717 Rapid COVID-negative ABG: pH 7.33 PCO2 69, PO2 83, on 3 L oxygen Patient was given nebs Solu-Medrol, ceftriaxone and azithromycin in the ER and was placed on BiPAP Review of Systems Const: Denies: change in appetite or diaphoresis Card: Denies: palpitations, edema, swelling of feet/ankles, orthopnea or leg pain with exertion Resp: Denies: pain on inspiration GI: Denies: abdominal pain, nausea, vomiting, diarrhea or constipation : Denies: flank pain or difficulty urinating Musc: Denies: back pain, extremity pain or extremity swelling Neuro: Denies: headache(s) or confusion Medications/Allergies Home Medications Medication Instructions Recorded Confirmed Last Taken Type ipratropium-albuterol 2.5 ml INHALATION Q4H PRN 11/03/19 07/30/21 04/01/20 History acetaminophen [Tylenol Extra 1,000 mg PO PRN 01/17/21 07/30/21 Unknown History Strength] aspirin 81 mg PO DAILY #30 tab 01/26/21 07/30/21 06/12/21 Rx budesonide 0.5 mg INHALATION BID #60 ml 01/26/21 07/30/21 Unknown Rx furosemide 60 mg PO DAILY@0800 #45 tab 01/26/21 07/30/21 06/12/21 Rx gabapentin [Neurontin] 100 mg PO TID #90 cap 01/26/21 07/30/21 06/12/21 Rx ipratropium-albuterol 3 ml INHALATION Q6H #180 ml 01/26/21 07/30/21 Unknown Rx lidocaine See Rx Instructions .ROUTE 01/26/21 07/30/21 Unknown Rx .COMPLEX #30 ea metformin 500 mg PO BID #60 tab 01/26/21 07/30/21 06/12/21 Rx metoprolol tartrate 12.5 mg PO BID@0900,2100 #30 tab 01/26/21 07/30/21 06/12/21 Rx pantoprazole 40 mg PO QAM #30 tab 01/26/21 07/30/21 06/12/21 Rx potassium chloride 20 meq PO DAILY #30 tab 01/26/21 07/30/21 06/12/21 Rx promethazine 25 mg PO Q6H PRN #10 tab 01/26/21 07/30/21 Unknown Rx sertraline 50 mg PO BEDTIME #30 tab 01/26/21 07/30/21 06/12/21 Rx diphenoxylate-atropine [Lomotil] 1 tab PO BID PRN #7 tab 01/31/21 07/30/21 Unknown Rx Lantus Solostar U-100 Insulin 10 unit SUBCUT QPM #15 ml 02/04/21 07/30/21 06/12/21 Rx blood-glucose meter #1 ea 02/04/21 07/30/21 Unknown Rx pen needle, diabetic [Lite Touch #50 ea 02/10/21 07/30/21 Unknown Rx Insulin Pen [place]] alprazolam [Xanax] 0.5 mg PO TID PRN #20 tab 02/12/21 07/30/21 Unknown Rx citalopram 20 mg PO DAILY 06/13/21 07/30/21 06/12/21 History hydrocodone-acetaminophen 1 tab PO Q4H PRN 06/13/21 07/30/21 Unknown History prednisone 5 mg PO DAILY 06/13/21 07/30/21 06/12/21 History Allergies Allergy/AdvReac Type Severity Reaction Status Date / Time No Known Allergies Allergy Verified 01/17/21 10:29 PFSH Acute PFSH: Medical History (Updated 07/30/21 @ 23:32 by Antwon Ibarra MD) Aortic stenosis, mild BPH with urinary obstruction CHF (congestive heart failure) Chronic indwelling Drake catheter Chronic kidney disease, stage 3 COPD (chronic obstructive pulmonary disease) COPD (chronic obstructive pulmonary disease) Diabetes mellitus, type II Erectile dysfunction History of ESBL E. coli infection urine, history of ESBL E. 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 Social History Smoking and tobacco status: never smoked Alcohol intake: never Marital status: / Current occupational status: retired and disabled Vitals/I&O/Wt Last Vital Signs Pulse 85 07/30/21 21:37 Resp 18 07/30/21 21:37 BP 141/90 07/30/21 21:37 Pulse Ox 96 07/30/21 21:37 Physical Exam Const: COMMON NORMALS: patient oriented x3 HENMT: COMMON NORMALS: normocephalic and atraumatic HEAD & SCALP: normocephalic and atraumatic Resp: OTHER: B/L Wheezing Present in both lungs [place], diminished air entry b/l Cardio: COMMON NORMALS: regular rate, regular rhythm, S1 normal heart sound present, S2 normal heart sound present, No gallops present (Cardio), No rub (Cardio) and Peripheral pulses 2+ throughout RATE: regular rate RHYTHM: regular rhythm HEART SOUNDS: S1 normal heart sound present and S2 normal heart sound present PERIPHERAL PULSES: Peripheral pulses 2+ throughout OTHER: ESM in aortic area GI: COMMON NORMALS: Normal to inspection, nondistended, normoactive bowel sounds present, Soft to palpation, non-tender, No hepatosplenomegaly present and no masses AUSCULTATION: Yes normoactive bowel sounds PALPATION: Yes Soft to palpation and Yes No hepatosplenomegaly present RECTAL EXAM: Yes deferred Extremity: COMMON NORMALS: no clubbing, cyanosis or edema and no pedal edema Neuro: COMMON NORMALS: patient oriented x3 Data : 07/30/21 17:14 07/30/21 17:14 Micro: Microbiology 07/30/21 19:33 Blood Culture - Preliminary Blood SPECIMEN COLLECTED 07/30/21 19:31 Blood Culture - Preliminary Blood SPECIMEN COLLECTED A&P Assessment and plan (1) COPD exacerbation: Status: Acute (2) Diabetes mellitus, type II: Status: Chronic Qualifiers: Chronic kidney disease stage: stage 3 (moderate) Diabetes mellitus complication detail: with chronic kidney disease Diabetes mellitus complication status: with kidney complications Diabetes mellitus exterminator helper termite insulin use: without prison use Qualified Code(s): E11.22 - Type 2 diabetes mellitus with diabetic chronic kidney disease; N18.3 - Chronic kidney disease, stage 3 (moderate) (3) CHF (congestive heart failure): Status: Acute (4) Hypertension: Status: Chronic Qualifiers: Hypertension type: essential hypertension Qualified Code(s): I10 - Essential (primary) hypertension (5) Aortic stenosis, mild: Status: Chronic Additional A&P Information Vladimir Farnsworth is a 81 year old male with past medical history of hypertension diabetes COPD On 3ls home oxygen,HFpEF, mild aortic stenosis , came in with chief complaint of worsening shortness of breath with productive white sputum in the last 24 hours. #COPD exacerbation: Monitor x-ray chest monitor ABG Continue DuoNebs, steroids, supplemental oxygen as needed, BiPAP, pulmonary toilet, ceftriaxone. #Chronic compensated hypercapnia : Plan as above # HFpEF : Currently compensated : Slightly dry Continue D5 half NS at 50 cc an hour Lasix on hold Monitor intake output charting Daily weight K>4, MG > #Diabetes: Sliding scale insulin Carbohydrate consistent diet Monitor fingerstick glucose #CODE STATUS: AND #DVT prophylaxis on Lovenox Attestations Medical Necessity Statement*: Patient is to be in hospital for management of COPD exacerbation. Anticipated length of stay greater than 2 midnights. Time Spent in Patient Care: Greater than 35 minutes (>than 50% of time spent in counselling and/or direct pt care on unit). Coding Level of Care Code Acute [place] Programs Director for [facility] Fwd Exam Detailed Diagnoses COPD exacerbation J44.1 Diabetes mellitus, type II E11.22; N18.3 Chronic kidney disease stage: stage 3 (moderate) Diabetes mellitus complication detail: with chronic kidney disease Diabetes mellitus complication status: with kidney complications Diabetes mellitus exterminator helper termite insulin use: without exterminator helper termite use CHF (congestive heart failure) I50.9 Hypertension I10 Hypertension type: essential hypertension Aortic stenosis, mild I35.0
[2021-07-30] MEDS: enoxaparin 40 mg/0.4 mL Syringe SUBCUT (22:31)
[2021-07-30] MEDS: dextrose 5%-sod chloride 0.45% 1,000 ML 50 ML IV (22:46)
[2021-07-30 23:10] LABS: Glucose Point of Care 185 mg/dL (70-110)
[2021-07-30 23:14] LABS: Troponin 5 6HR 79.32 ng/L (0-15)
[2021-07-30 23:16] LABS: Troponin 5 6HR Delta -5.68 ng/L (0-12)
[2021-07-31] VITALS (22 sets, daily range): BP systolic 109–168; BP diastolic 59–97; PULSE 88–107; RESP 18–32; TEMP 36.6–36.9; O2SAT 92–100
[2021-07-31] MEDS: ipratropium-albuterol 3 mL Neb INHALATION ×6 (03:05→23:50)
[2021-07-31 03:10] LABS: Basophils % 0.2 %; Hematocrit 32.4 % (42.0-52.0); Hemoglobin 9.4 g/dL (11.7-16.6); Lymphocytes # 0.4 10^3/uL (0.8-4.8); Lymphocytes % 3.4 %; Mean Corpuscular Hemoglobin 23.3 pg (28.0-34.0); Mean Corpuscular Volume 80.2 fl (80-94); Mean Platelet Volume 9.8 fL (7.4-10.4); Monocytes % 0.3 %; Neutrophils # 12.21 10^3/uL (1.8-7.7); Neutrophils % 95.2 %; Nucleated Red Blood Cells % 0 %; Platelet Count 317 10^3/cmm (130-400); Red Blood Count 4.04 10^6/uL (4.1-5.3); Red Cell Distribution Width 16.8 % (12.1-15.1); White Blood Count 12.8 10^3/uL (4.0-10.0)
[2021-07-31 03:35] LABS: Anion Gap 18.2 (5-19); Blood Urea Nitrogen 24 mg/dL (8-23); Calcium 8.8 mg/dL (8.5-10.5); Carbon Dioxide 28 mmol/L (22-29); Chloride 92 mmol/L (98-107); Glucose 239 mg/dL (65-115); Osmolality Calculated 290 mOsm/kg (285-295); Potassium 4.2 mmol/L (3.5-5.1); Sodium 134 mmol/L (136-145)
[2021-07-31 03:42] LABS: Procalcitonin 0.12 ng/mL (0-0.5)
--- NOTE | 2021-07-31 04:47 | PC.NURSE ---
Patient having difficulty with swallowing thin liquids. Notified Dr. Ibarra, Hospitalist. Orders received, see orders.
[2021-07-31] MEDS: pantoprazole DR 40 mg Tablet PO (07:34)
[2021-07-31 07:43] LABS: Glucose Point of Care 235 mg/dL (70-110)
[2021-07-31] MEDS: insulin lispro 100 unit/1 mL SUBCUT ×3 (07:45→21:55)
[2021-07-31] MEDS: acetaminophen 325 mg Tablet 650 MG PO (07:46)
--- NOTE | 2021-07-31 08:18 | PM.PN ---
Subjective Subjective: Interval history: Patient was seen and examined this morning, he stating that he uses 3 L at home currently requiring 4 L of oxygen He still has mild wheezing Very fatigued and lethargic I requested another ABG, when asked about the BiPAP machine usage overnight, he was not sure Vitals/I&O/Wt Last Vital Signs Temp 98.2 F 07/30/21 21:50 Pulse 92 07/31/21 07:40 Resp 20 H 07/31/21 07:25 BP 109/59 07/31/21 04:00 Pulse Ox 96 07/31/21 07:25 07/30/21 07/31/21 07/31/21 22:59 06:59 14:59 Intake Total 300 / 300 Output Total 400 / 400 Balance -100 / -100 Weight last 48 hrs Weight 97.023 kg Physical Exam Narrative: EXAM NARRATIVE: Patient was in semi-Juárez position saturating on 4 L nasal cannula 95% Mild expiratory wheezing S1, S2 Abdomen distended with obesity No signs of edema of legs Chronic Drake catheter Nonfocal neuro exam Fatigued and lethargic Data : 07/31/21 03:00 07/31/21 03:00 Micro: Microbiology 07/30/21 19:33 Blood Culture - Preliminary Blood SPECIMEN COLLECTED 07/30/21 19:31 Blood Culture - Preliminary Blood SPECIMEN COLLECTED A&P Assessment and plan (1) COPD exacerbation: Status: Acute (2) Elevated hemidiaphragm: Status: Acute Additional A&P Information Acute COPD exacerbation Acute hypercapnia with hypoxia Currently on 4 L, uses 3 L at home Has active wheezing Continue antibiotics for now DuoNeb and steroids White count improved, he is afebrile Will look repeat ABG this morning He has right hemidiaphragm, would recommend semi-Juárez position, supine position will make him more short of breath Last month he was discharged to [facility] for rehab after COPD exacerbation has history of ESBL UTI CHF without acute exacerbation currently compensated Chronic hypoxia Type 2 diabetes Chronic indwelling Drake catheter, patient stating that it gets changed every 4 weeks Mild DNR/DNI Multiple lacerations and ecchymosis of extremities secondary to senile skin changes Attestations Medical Necessity Statement*: Continue medical management Time Spent in Patient Care: 16 - 35 minutes Coding Level of Care Code 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
[2021-07-31 08:36] LABS: ABG PCO2 52.3 mmHg (35-45); ABG PH Result 7.44 (7.35-7.45); Base Excess ABG 10.1 mmol/L (-2.0-2.0); Blood Gas Operator Identificat GD; Blood Gas Sample Site Brachial, right; Blood Gas Sample Type Arterial; HCO3 ABG 35.5 mmol/L (22-26); Oxygen Device NC; PO2 ABG 66.1 mmHg (80.0-100.0)
[2021-07-31] MEDS: aspirin 81 mg EC Tablet PO (09:53)
[2021-07-31] MEDS: morphine 4 mg/mL SDV 1 mL 2 MG IVP ×2 (16:20→21:54)
[2021-07-31] MEDS: cefTRIAXone 1,000 MG in sodium chloride 0.9% (plus) 50 ML 100 MG IV (19:57)
[2021-07-31] MEDS: enoxaparin 40 mg/0.4 mL Syringe SUBCUT (19:59)
[2021-07-31] MEDS: sertraline 50 mg Tablet PO (20:02)
[2021-07-31 23:04] LABS: Glucose Point of Care 183 mg/dL (70-110)
[2021-07-31 23:04] LABS: Glucose Point of Care 219 mg/dL (70-110)
[2021-07-31 23:04] LABS: Glucose Point of Care 207 mg/dL (70-110)
[2021-08-01] VITALS (21 sets, daily range): BP systolic 131–178; BP diastolic 65–116; PULSE 88–106; RESP 18–22; TEMP 36.5–37.1; O2SAT 88–100
[2021-08-01] MEDS: morphine 4 mg/mL SDV 1 mL 2 MG IVP ×3 (02:16→18:16)
[2021-08-01] MEDS: ALPRAZolam 0.5 mg Tablet PO ×3 (03:27→18:15)
[2021-08-01] MEDS: ipratropium-albuterol 3 mL Neb INHALATION ×5 (03:44→23:07)
[2021-08-01 04:48] LABS: Basophils % 0.1 %; Hematocrit 29.6 % (42.0-52.0); Hemoglobin 8.8 g/dL (11.7-16.6); Lymphocytes # 0.5 10^3/uL (0.8-4.8); Lymphocytes % 3.5 %; Mean Corpuscular HGB Conc 29.7 g/dL (30.0-36.0); Mean Corpuscular Hemoglobin 23.2 pg (28.0-34.0); Mean Corpuscular Volume 77.9 fl (80-94); Mean Platelet Volume 10.2 fL (7.4-10.4); Monocytes # 0.6 10^3/uL (0.2-0.9); Monocytes % 3.9 %; Neutrophils # 12.86 10^3/uL (1.8-7.7); Neutrophils % 91.9 %; Nucleated Red Blood Cells % 0 %; Platelet Count 354 10^3/cmm (130-400); Red Cell Distribution Width 17.2 % (12.1-15.1)
[2021-08-01 05:34] LABS: Anion Gap 16.5 (5-19); Blood Urea Nitrogen 30 mg/dL (8-23); Calcium 9.3 mg/dL (8.5-10.5); Carbon Dioxide 30 mmol/L (22-29); Chloride 96 mmol/L (98-107); Glucose 177 mg/dL (65-115); Osmolality Calculated 299 mOsm/kg (285-295); Potassium 3.5 mmol/L (3.5-5.1); Sodium 139 mmol/L (136-145)
[2021-08-01] MEDS: pantoprazole DR 40 mg Tablet PO (05:38)
[2021-08-01 06:50] LABS: Glucose Point of Care 164 mg/dL (70-110)
[2021-08-01] MEDS: aspirin 81 mg EC Tablet PO (08:48)
[2021-08-01] MEDS: insulin lispro 100 unit/1 mL SUBCUT ×2 (08:48→18:20)
--- NOTE | 2021-08-01 09:57 | P.PN_ITS ---
Subjective Subjective: Interval history: This morning patient was on BiPAP, he seems to be anxious and complains of shortness of breath however very comfortable during my evaluation he seems to have poor insight Vitals/I&O/Wt Last Vital Signs Temp 97.7 F 08/01/21 09:11 Pulse 92 08/01/21 09:20 Resp 20 H 08/01/21 09:20 BP 163/102 08/01/21 09:11 Pulse Ox 94 08/01/21 09:20 07/31/21 08/01/21 08/01/21 22:59 06:59 14:59 Intake Total 40 / 320 1090 / 1410 Output Total 1500 / 1500 750 / 2250 Balance -1460 / -1180 340 / -840 Weight last 48 hrs Weight 97.023 kg Physical Exam Narrative: EXAM NARRATIVE: Patient resting comfortably in his bed On BiPAP Looks euvolemic Awake and alert Cognitive impairment S1, S2 Abdomen soft Lower extremity 1+ edema Data : 08/01/21 04:10 08/01/21 04:10 Micro: Microbiology 07/30/21 19:33 Blood Culture - Preliminary Blood NEGATIVE TO DATE 07/30/21 19:31 Blood Culture - Preliminary Blood NEGATIVE TO DATE 07/31/21 11:20 C.difficile Toxin B Gene (PCR) - Final Stool Routine Collection A&P Assessment and plan (1) Elevated hemidiaphragm: Status: Acute (2) COPD exacerbation: Status: Acute Additional A&P Information Patient seems to be doing well for COPD exacerbation, at wheezing has improved leukocytosis seems secondary to use of IV steroids Continue BiPAP use at night Will touch base with his daughter In the past he was on hospice care which was discontinued by the patient because of his noncompliance currently home health services also stopped providing services, will touch base with case management For anxiety I would give him morphine, avoid Ativan Continue ceftriaxone and azithromycin DNR/DNI DVT prophylaxis Lovenox Attestations Medical Necessity Statement*: Planning to discharge in next 24 to 30 hours Time Spent in Patient Care: less than 15 minutes Coding Level of Care Code Acute 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
[2021-08-01 12:35] LABS: Glucose Point of Care 198 mg/dL (70-110)
[2021-08-01 17:41] LABS: Glucose Point of Care 230 mg/dL (70-110)
[2021-08-01] MEDS: cefTRIAXone 1,000 MG in sodium chloride 0.9% (plus) 50 ML 100 MG IV (20:53)
[2021-08-01] MEDS: sertraline 50 mg Tablet PO (20:54)
[2021-08-01] MEDS: enoxaparin 40 mg/0.4 mL Syringe SUBCUT (21:53)
[2021-08-02] VITALS (21 sets, daily range): BP systolic 126–161; BP diastolic 70–90; PULSE 62–104; RESP 16–32; TEMP 36.3–36.9; O2SAT 95–100
[2021-08-02] MEDS: ALPRAZolam 0.5 mg Tablet PO ×3 (03:08→20:02)
[2021-08-02] MEDS: ipratropium-albuterol 3 mL Neb INHALATION ×5 (03:21→23:46)
[2021-08-02 04:00] LABS: Basophils % 0.1 %; Hematocrit 30.7 % (42.0-52.0); Hemoglobin 9.1 g/dL (11.7-16.6); Lymphocytes # 0.8 10^3/uL (0.8-4.8); Lymphocytes % 5.5 %; Mean Corpuscular HGB Conc 29.6 g/dL (30.0-36.0); Mean Corpuscular Hemoglobin 23.3 pg (28.0-34.0); Mean Corpuscular Volume 78.7 fl (80-94); Mean Platelet Volume 9.6 fL (7.4-10.4); Monocytes # 0.5 10^3/uL (0.2-0.9); Monocytes % 3.3 %; Neutrophils # 12.75 10^3/uL (1.8-7.7); Neutrophils % 90.6 %; Nucleated Red Blood Cells % 0 %; Platelet Count 352 10^3/cmm (130-400); Red Cell Distribution Width 17.3 % (12.1-15.1); White Blood Count 14.1 10^3/uL (4.0-10.0)
[2021-08-02 04:24] LABS: Anion Gap 14.1 (5-19); Blood Urea Nitrogen 32 mg/dL (8-23); Calcium 9.1 mg/dL (8.5-10.5); Carbon Dioxide 32 mmol/L (22-29); Chloride 97 mmol/L (98-107); Glucose 162 mg/dL (65-115); Osmolality Calculated 298 mOsm/kg (285-295); Potassium 4.1 mmol/L (3.5-5.1); Sodium 139 mmol/L (136-145)
--- NOTE | 2021-08-02 05:35 | PC.NURSE ---
SHIFT SUMMARY Has rested pretty well tonight. On BIPAP most of the shift. Has anxiety and is almost obsessive about what his VS and oxygen level is asking several tilmes what it is and if everything is normal. Around 314 he woke up with anxiety over BIPAP and was taking it off. Was given prn Xanax which helped and was able to place back on it shortly. When off BIPAP he wears O2 at 3l per NC. Easily SOB and occ cough. Drake with good urine output
[2021-08-02] MEDS: pantoprazole DR 40 mg Tablet PO (06:21)
[2021-08-02 07:54] LABS: Glucose Point of Care 213 mg/dL (70-110)
[2021-08-02] MEDS: insulin lispro 100 unit/1 mL SUBCUT ×3 (09:15→17:54)
[2021-08-02] MEDS: aspirin 81 mg EC Tablet PO (09:16)
--- NOTE | 2021-08-02 09:47 | PM.PN ---
Subjective Subjective: Interval history: This morning patient had a lot of questions, he was asking me to allow him to bathe, I asked nursing care partner to help him with shower Will request OT I removed his BiPAP and put him on 3 L nasal cannula he was saturating 97% He does not have any active respiratory distress however keeps complaining about his body hurting He kept asking when he will be able to get back to on his legs Vitals/I&O/Wt Last Vital Signs Temp 97.7 F 08/02/21 08:00 Pulse 104 H 08/02/21 08:00 Resp 32 H 08/02/21 08:00 BP 161/77 08/02/21 08:00 Pulse Ox 98 08/02/21 08:00 08/01/21 08/02/21 08/02/21 22:59 06:59 14:59 Intake Total 50 / 50 200 / 250 Output Total 1300 / 1300 Balance 50 / 50 -1100 / -1050 Physical Exam Narrative: EXAM NARRATIVE: Patient looks euvolemic Untreated, No active shortness of breath Have rhonchi with chest congestion on lung auscultation Abdomen soft Trace edema of legs Patient is awake and alert No active respiratory distress S1, S2 Data : 08/02/21 03:05 08/02/21 03:05 A&P Assessment and plan (1) Elevated hemidiaphragm: Status: Acute (2) COPD exacerbation: Status: Acute (3) Hypertension: Status: Chronic Qualifiers: Hypertension type: essential hypertension Qualified Code(s): I10 - Essential (primary) hypertension (4) Physical deconditioning: Status: Acute Additional A&P Information Physical deconditioning COPD exacerbation COPD exacerbation seems to be improving, wheezing has improved currently requiring 3 to nasal cannula No active shortness of breath Patient seems very deconditioned, has not been able to get out of his bed, he was asking to bathe today Hemoglobin stable Chronic kidney disease Baseline creatinine Type 2 diabetes Consistent carb diet DNR/DNI Attestations Medical Necessity Statement*: Discharge tomorrow Time Spent in Patient Care: less than 15 minutes Coding Level of Care Code Acute 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
--- NOTE | 2021-08-02 11:03 | PC.SOCIAL ---
IMM Update pg 2 of IMM updated and reviewed w/ patient. Copy provided and copy placed in chart.
[2021-08-02 12:56] LABS: Glucose Point of Care 311 mg/dL (70-110)
[2021-08-02] MEDS: morphine 4 mg/mL SDV 1 mL 2 MG IVP ×2 (16:45→23:06)
[2021-08-02] MEDS: sertraline 50 mg Tablet PO (20:02)
[2021-08-02 20:51] LABS: Glucose Point of Care 177 mg/dL (70-110)
[2021-08-02] MEDS: enoxaparin 40 mg/0.4 mL Syringe SUBCUT (22:53)
[2021-08-03] VITALS (14 sets, daily range): BP systolic 136–156; BP diastolic 82–86; PULSE 93–120; RESP 16–23; TEMP 36.4–36.6; O2SAT 96–99
[2021-08-03] MEDS: ipratropium-albuterol 3 mL Neb INHALATION ×4 (03:00→15:03)
[2021-08-03 05:13] LABS: Anion Gap 18.3 (5-19); Blood Urea Nitrogen 14 mg/dL (8-23); Calcium 8.9 mg/dL (8.5-10.5); Carbon Dioxide 15 mmol/L (22-29); Chloride 110 mmol/L (98-107); Glucose 75 mg/dL (65-115); Osmolality Calculated 289 mOsm/kg (285-295); Potassium 3.3 mmol/L (3.5-5.1); Sodium 140 mmol/L (136-145)
[2021-08-03] MEDS: pantoprazole DR 40 mg Tablet PO (05:38)
[2021-08-03] MEDS: morphine 4 mg/mL SDV 1 mL 2 MG IVP (06:02)
[2021-08-03 06:26] LABS: Glucose Point of Care 139 mg/dL (70-110)
[2021-08-03] MEDS: aspirin 81 mg EC Tablet PO (07:36)
--- NOTE | 2021-08-03 09:53 | PC.NURSE ---
notified Dr Vinson that patient's borja was placed on 06/19/21 and it is a chronic borja. asked if he wanted borja changed prior to discharge. Dr Dr Vinson, change borja prior to discharge.
--- NOTE | 2021-08-03 11:13 | PM.DCS ---
Discharge Providers Date of Admission: 07/30/21 20:48 Date of Discharge: August 02, 2021 Attending Provider at Admission: Antwon Ibarra MD Attending Provider at Discharge: Antwon Ibarra MD Primary Care Provider: Thierno Pradhan Diagnoses at Discharge Discharge Diagnosis (1) Elevated hemidiaphragm: Status: Acute (2) COPD exacerbation: Status: Acute (3) Hypertension: Status: Chronic Qualifiers: Hypertension type: essential hypertension Qualified Code(s): I10 - Essential (primary) hypertension (4) Physical deconditioning: Status: Acute Reason for Visit Reason for Visit: DYSPNEA Hospital Course Hospital Course History of Present Illness by Dr. Ibarra Vladimir Farnsworth is a 81 year old male with past medical history of hypertension diabetes COPD On 3ls home oxygen,HFpEF, mild aortic stenosis , came in with chief complaint of worsening shortness of breath with productive white sputum in the last 24 hours, he denies any fever, chest pain, diaphoresis, nausea vomiting, abdominal pain. Upon arrival in the ER he was worked up for above-mentioned complaint. X-ray chest: No infiltrates no pulmonary vascular congestion chronically elevated right hemidiaphragm Pertinent labs: WBC 18.5 H&H 9.4/ 32 , platelet: 323 , serum sodium 137 serum potassium 4.7 BUN / serum creatinine 20/ 1.2 Troponin trend without significant delta , proBNP:717 Rapid COVID-negative ABG: pH 7.33 PCO2 69, PO2 83, on 3 L oxygen Patient was given nebs Solu-Medrol, ceftriaxone and azithromycin in the ER and was placed on BiPAP Hospital course Patient was admitted for management of COPD exacerbation, his wheezing improved with steroids, he did very well with use of BiPAP, case monitor requested hospice company to evaluate him on Tuesday this week, during his hospitalization no events, patient is very reluctant to get out of bed on his own, when I asked his family member I was told that at home he does try to get out of couch go to the bathroom on his own but leading a sedentary lifestyle which is causing gradual deconditioning. Hospice care was requested for multiple comorbid conditions and lack of improvement by Dr. Lezama in the past as well. Patient does well on 2-3 L of oxygen when he is off BiPAP. Physical Exam Narrative: EXAM NARRATIVE: Patient looks euvolemic Untreated, No active shortness of breath Have rhonchi with chest congestion on lung auscultation Abdomen soft Trace edema of legs Patient is awake and alert No active respiratory distress S1, S2 Discharge Data Data Completed and Pending: Completed Studies During Hospitalization Category Date Time Status XR chest 1V saniya ble [id number] Urgent Exams 07/30/21 16:02 Completed Pending at discharge Category Date Time Status Basic Metabolic P isak AM LABS Lab 08/03/21 04:00 Ordered Blood Culture Sta t Lab 07/30/21 19:33 Results Complete Blood Co unt w/Auto AM LABS Lab 08/03/21 04:00 Ordered Labs from last 24 hours 08/02/21 08/02/21 08/02/21 12:15 06:24 03:05 WBC RBC Hgb Hct MCV MCH MCHC RDW Plt Count MPV Neut % (Auto) Lymph % (Auto) [place] % (Auto) Eos % (Auto) Baso % (Auto) Neut # (Auto) Lymph # (Auto) [place] # (Auto) Eos # (Auto) Baso # (Auto) Nucleated RBC % (a uto) Nucleated RBCs # Sodium 139 Potassium 4.1 Chloride 97 L Carbon Dioxide 32 H Anion Gap 14.1 BUN 32 H Creatinine 1.4 H GFR Calculation Not Reportable Glucose 162 H POC Glucose 311 H 213 H Calculated Osmolal ity 298 H Calcium 9.1 08/02/21 08/01/21 03:05 17:20 WBC 14.1 H RBC 3.90 L Hgb 9.1 L Hct 30.7 L MCV 78.7 L MCH 23.3 L MCHC 29.6 L RDW 17.3 H Plt Count 352 MPV 9.6 Neut % (Auto) 90.6 Lymph % (Auto) 5.5 [place] % (Auto) 3.3 Eos % (Auto) 0.0 Baso % (Auto) 0.1 Neut # (Auto) 12.75 H Lymph # (Auto) 0.8 [place] # (Auto) 0.5 Eos # (Auto) 0.0 Baso # (Auto) 0.0 Nucleated RBC % (a uto) 0 Nucleated RBCs # 0.0 Sodium Potassium Chloride Carbon Dioxide Anion Gap BUN Creatinine GFR Calculation Glucose POC Glucose 230 H Calculated Osmolal ity Calcium Vitals: Last Vital Signs Temp 98.3 F 08/02/21 12:00 Pulse 92 08/02/21 13:07 Resp 20 H 08/02/21 13:07 BP 146/76 01/23/22 12:00 Pulse Ox 96 08/02/21 13:07 Discharge Plan Discharge Patient Disposition: Home Condition: Stable Prescriptions: New albuterol sulfate 90 mcg/actuation HFA aerosol inhaler 2 inh inhalation Q8H PRN (Reason: shortness of breath or wheezing) Qty: 8.5 RF: 3 Medrol (Joe) 4 mg tablets,dose pack See Rx Instructions .ROUTE .COMPLEX Qty: 21 RF: 0 Continued ipratropium-albuterol 0.5 mg-3 mg(2.5 mg base)/3 mL solution for nebulization 2.5 ml INHALATION Q4H PRN (Reason: Shortness Of Breath Or Wheezing) RF: 0 acetaminophen [Tylenol Extra Strength] 500 mg Tablet 1,000 mg PO PRN RF: 0 Hold Instructions: see pcp furosemide 40 mg Tablet 60 mg PO DAILY@0800 Qty: 45 RF: 0 metoprolol tartrate 25 mg Tablet 12.5 mg PO BID@0900,2100 Qty: 30 RF: 0 ipratropium-albuterol 0.5 mg-3 mg(2.5 mg base)/3 mL solution for nebulization 3 ml inhalation Q6H Qty: 180 RF: 0 budesonide 0.5 mg/2 mL suspension for nebulization 0.5 mg inhalation BID Qty: 60 RF: 0 metformin 500 mg tablet 500 mg PO BID Qty: 60 RF: 0 gabapentin [Neurontin] 100 mg capsule 100 mg PO TID Qty: 90 RF: 0 aspirin 81 mg tablet,delayed release (DR/EC) 81 mg PO DAILY Qty: 30 RF: 0 pantoprazole 40 mg tablet,delayed release (DR/EC) 40 mg PO QAM Qty: 30 RF: 0 lidocaine 5 % adhesive patch,medicated See Rx Instructions .ROUTE .COMPLEX Qty: 30 RF: 0 promethazine 25 mg tablet 25 mg PO Q6H PRN (Reason: Nausea And Vomiting) Qty: 10 RF: 0 sertraline 50 mg Tablet 50 mg PO BEDTIME Qty: 30 RF: 0 potassium chloride 20 mEq tablet extended release 20 meq PO DAILY Qty: 30 RF: 0 diphenoxylate-atropine [Lomotil] 2.5-0.025 mg tablet 1 tab PO BID PRN (Reason: diarrhea) Qty: 7 RF: 0 Hold Instructions: no longer having diarrhea Lantus Solostar U-100 Insulin 100 unit/mL (3 mL) insulin pen 10 unit SUBCUT QPM Qty: 15 RF: 0 (DME) blood-glucose meter Kit See Rx Instructions .Route Qty: 1 RF: 0 (DME) pen needle, diabetic [Lite Touch Insulin Pen Hewitt] 31 gauge x 1/4 needle See Rx Instructions .Route Qty: 50 RF: 0 alprazolam [Xanax] 0.5 mg tablet 0.5 mg PO TID PRN (Reason: anxiety) Qty: 20 RF: 0 prednisone 5 mg tablet 5 mg PO DAILY RF: 0 Hold Instructions: see pcp citalopram 20 mg Tablet 20 mg PO DAILY RF: 0 hydrocodone-acetaminophen 5-325 mg tablet 1 tab PO Q4H PRN (Reason: pain) RF: 0 Discharge Orders: Discharge Order (Routine); Ordered 08/03/21 Ordered By: Arsalan Vinson Referrals: Jericho Dao DO [Physician] - 08/06/21 10:30 am Discharge Diet: Diabetic Discharge Activity: Use walker/crutches as instructed Patient Instructions: COPD, Albuterol (By breathing), Methylprednisolone (By mouth), Heart Failure (ED), CHF Stoplight, COPD Stoplight, Opioid Safety Discharge Attestations Time Spent in Discharge Care*: less than 30 min Status at Discharge: Cognitive status at discharge: cognitively intact, Behavioral status at discharge: cooperative, Quality Metrics Clinical Quality Measures During this hospital stay, did patient experience: None Coding Level of Care Code Acute Chg FW DC note Diagnoses Elevated hemidiaphragm J98.6 COPD exacerbation J44.1 Hypertension I10 Hypertension type: essential hypertension Physical deconditioning R53.81
[2021-08-03] MEDS: insulin lispro 100 unit/1 mL SUBCUT (12:11)
[2021-08-03 12:30] LABS: Glucose Point of Care 195 mg/dL (70-110)
[2021-08-03] MEDS: acetaminophen 325 mg Tablet 650 MG PO (14:43)
--- NOTE | 2021-08-03 15:33 | PC.NURSE ---
discharge instructions given to patient and placed in bag with meds to beds. patient taken home via gurney by EMS
== END 2021-08-03 15:36 | disposition home health service (06) | DRG 191 ==
LOC: ER 18:06 → CSU 21:22 → MEDSURG 07-31 11:19
PROVIDERS: Family Medicine; Physician Assistant; Admitting Provider Internal Medicine; Emergency Provider Emergency Medicine; PCP Family Medicine; Visit Provider Internal Medicine
DX: J44.1 Chronic obstructive pulmonary disease with (acute) exacerbation (principal); I13.0 Hypertensive heart and chronic kidney disease with heart failure and stage 1 through stage 4 chronic kidney disease, or unspecified chronic kidney disease; I50.32 Chronic diastolic (congestive) heart failure; N13.8 Other obstructive and reflux uropathy; J96.12 Chronic respiratory failure with hypercapnia; Z99.81 Dependence on supplemental oxygen; N18.30 Chronic kidney disease, stage 3 unspecified; E11.22 Type 2 diabetes mellitus with diabetic chronic kidney disease; I35.0 Nonrheumatic aortic (valve) stenosis; N40.1 Benign prostatic hyperplasia with lower urinary tract symptoms; Z96.0 Presence of urogenital implants; M51.36 Other intervertebral disc degeneration, lumbar region; M48.061 Spinal stenosis, lumbar region without neurogenic claudication; G89.29 Other chronic pain; I48.0 Paroxysmal atrial fibrillation; Z87.440 Personal history of urinary (tract) infections; Z66 Do not resuscitate; Z79.891 Long term (current) use of opiate analgesic; Z79.52 Long term (current) use of systemic steroids; Z79.4 Long term (current) use of insulin; Z79.82 Long term (current) use of aspirin; Z79.84 Long term (current) use of oral hypoglycemic drugs; F41.9 Anxiety disorder, unspecified
CPT/HCPCS: 36415; 36416; 36600; 51702; 71045; 80048; 80053; 82803; 82962; 83605; 83880; 84145; 84484; 85025; 87040; 87426; 87493; 92523; 92526; 92610; 93005; 94640; 94660; 94664; 96365; 96367; 96372; 96375; 97161; 97530; 99285; J0456; J0696; J1650; J1815; J2270; J2920; J2930; J7050; J7799

== ENCOUNTER 2021-10-07 03:38 | Emergency (ER) | payer OTHER, MEDICARE, MEDICAID, SELFPAY ==
[2021-10-07 03:39] VITALS: BMI 30.4
--- NOTE | 2021-10-07 03:41 | XRR_ITS ---
PROCEDURE INFORMATION: Exam: XR Lumbosacral Spine Exam date and time: 10/07/2021 4:17 AM Age: 81 years old Clinical indication: Injury or trauma; Fall; Blunt trauma (contusions or hematomas); Patient HX: Family found patient on floor next to bed at home. Patient C/O back pain. TECHNIQUE: Imaging protocol: XR of the lumbosacral spine. Views: 2 or 3 views. COMPARISON: CT abdomen pelvis con [id number] 06/14/2021 12:45 PM FINDINGS: Bones/joints: There is diffuse osseous demineralization. There is 8 mm grade 1 retrolisthesis of L4 on L5 and 7 mm grade 1 anterolisthesis of L5 on S1. These subluxations represent a change from the comparison study. There is chronic appearing mild superior endplate compression fracture of L4. There is degenerative disc disease at multiple levels. Soft tissues: Unremarkable. Vasculature: Extensive atherosclerotic calcification and tortuosity of the abdominal aorta and proximal iliac arteries. XR/XR lumbar spine 2-3V* [id number] IMPRESSION: 1. Mild retrolisthesis of L4 on L5 and anterolisthesis of L5 on S1, both of which are not seen on the comparison CT scan. This may be acute or subacute subluxations. Consider correlation with MRI or CT scan if clinically indicated. 2. Mild chronic appearing superior endplate compression fracture of L4. 3. Extensive atherosclerotic calcification and tortuosity of the abdominal aorta.
--- NOTE | 2021-10-07 03:42 | XRR_ITS ---
The PROCEDURE INFORMATION: Exam: XR Thoracic Spine Exam date and time: 10/07/2021 4:23 AM Age: 81 years old Clinical indication: Injury or trauma; Fall; Blunt trauma (contusions or hematomas); Patient HX: Family found patient on floor next to bed at home. Patient C/O back pain. TECHNIQUE: Imaging protocol: XR of the thoracic spine. Views: 3 views. COMPARISON: CR (PELVIS, ) 10/07/2021 4:17 AM FINDINGS: Bones/joints: There is normal vertebral body alignment. There is diffuse osseous demineralization. There is loss of height of several midthoracic and lower thoracic vertebral bodies, of unknown acuity. Soft tissues: There is asymmetric elevation of the right hemidiaphragm. There is retrocardiac consolidation. Other findings: Evaluation limited by patient body habitus and technical factors. XR/XR thoracic spine 3V* [id number] IMPRESSION: 1. No evidence of acute traumatic subluxation. 2. Diffuse osseous demineralization and loss of height of multiple mid and lower thoracic vertebrae, of unknown acuity. CT scan or MRI may be helpful for further characterization if clinically indicated. 3. Retrocardiac consolidation that may be secondary to atelectasis or in the appropriate clinical setting, pneumonia.
[2021-10-07 03:45] VITALS: BP 133/83; PULSE 124; RESP 15; O2SAT 95
--- NOTE | 2021-10-07 03:47 | W.ED.FALL ---
HPI - Fall General: Chief Complaint: Fall Stated Complaint: BACK/LEFT ARM PAIN Time Seen by Provider: 10/07/21 03:41 Source: patient and EMS Mode of arrival: EMS Limitations: no limitations History of Present Illness: 81-year-old male who is currently on hospice for CHF. Patient states that he tried to get up in the middle the night to go to the bathroom and slipped and fell. He states he fell backwards and fell onto his back he is complaining of thoracic and lumbar pain. Denies any other injuries at the time denies hitting his head denies any LOC. He is awake and alert and able answer all my questions appropriately. Associated symptoms-after fall: Denies abdominal pain, chest pain or headache(s) Review of Systems Const: Denies: fever(s), chills, body aches or change in appetite Eyes: Denies: blurry vision or eye discomfort ENMT: Denies: throat pain or dental pain Card: Denies: chest pain Resp: Denies: dyspnea GI: Denies: abdominal pain, nausea, vomiting or diarrhea : Denies: dysuria Musc: Reports: back pain Skin/Breast: Denies: rash Neuro: Denies: headache(s) Psych: Denies: depression Riky/Lymph: Denies: easy bruising All/Imm: Denies: urticaria PFSH ED PFSH: Medical History Aortic stenosis, mild BPH with urinary obstruction CHF (congestive heart failure) Chronic indwelling Drake catheter Chronic kidney disease, stage 3 COPD (chronic obstructive pulmonary disease) COPD (chronic obstructive pulmonary disease) COPD exacerbation Diabetes mellitus, type II Erectile dysfunction History of ESBL E. coli infection urine, history of ESBL E. 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 Social History Smoking and tobacco status: never smoked Alcohol intake: never Marital status: / Current occupational status: retired and disabled Physical Exam Const: COMMON NORMALS: patient oriented x3 and healthy appearing GENERAL APPEARANCE: ill appearing HENMT: COMMON NORMALS: normocephalic and atraumatic HEAD & SCALP: normocephalic and atraumatic Eye: COMMON NORMALS: Equal, round and reactive pupils present and EOMs intact bilaterally PUPIL: Yes Equal, round and reactive pupils present Neck/C-Spine: COMMON NORMALS: full ROM and supple Chest: COMMONS NORMALS: normal inspection of the chest and normal palpation of entire chest wall Resp: COMMON NORMALS: normal respiratory effort, No retractions, No use of accessory muscles and clear to auscultation bilaterally AUSCULTATION: clear to auscultation bilaterally Cardio: COMMON NORMALS: regular rate, regular rhythm and No murmurs present (Cardio) RATE: regular rate RHYTHM: regular rhythm GI: COMMON NORMALS: Normal to inspection, nondistended, normoactive bowel sounds present, Soft to palpation, non-tender and no masses PALPATION: Yes Soft to palpation Back/Pelvis: OTHER: Some slight tenderness along thoracic and lumbar spine no obvious deformity Extremity: COMMON NORMALS: normal to inspection and full ROM Neuro: COMMON NORMALS: patient oriented x3, moves all extremities and no focal motor deficits Psych: COMMON NORMALS: mental status grossly normal, Normal thought process present and cooperative THOUGHT PROCESS: Normal thought process present Skin: COMMON NORMALS: no rashes or lesions noted and no wounds GENERAL SKIN EXAM: no rashes or lesions noted Course Vital Signs: Vital signs: Vital Signs Pulse Rate 124 H 10/07/21 03:45 Respiratory Rate 15 10/07/21 03:45 Blood Pressure 133/83 10/07/21 03:45 Pulse Oximetry 95 10/07/21 03:45 MDM - Fall Medical Decision Making Patient presents here with a fall with a possible slight L1 compression fracture. He has no other signs of injuries no neurologic deficits he is stable for discharge is to follow-up with PCP and return if worsening. Discharge Plan Discharge Patient Disposition: Home Clinical Impression: Fall, Closed compression fracture of L1 vertebra Condition: Stable Prescriptions: No Action ipratropium-albuterol 0.5 mg-3 mg(2.5 mg base)/3 mL solution for nebulization 2.5 ml INHALATION Q4H PRN (Reason: Shortness Of Breath Or Wheezing) 0RF acetaminophen [Tylenol Extra Strength] 500 mg Tablet 1,000 mg PO PRN 0RF Hold Instructions: see pcp furosemide 40 mg Tablet 60 mg PO DAILY@0800 Qty: 45 0RF metoprolol tartrate 25 mg Tablet 12.5 mg PO BID@0900,2100 Qty: 30 0RF ipratropium-albuterol 0.5 mg-3 mg(2.5 mg base)/3 mL solution for nebulization 3 ml inhalation Q6H Qty: 180 0RF budesonide 0.5 mg/2 mL suspension for nebulization 0.5 mg inhalation BID Qty: 60 0RF metformin 500 mg tablet 500 mg PO BID Qty: 60 0RF gabapentin [Neurontin] 100 mg capsule 100 mg PO TID Qty: 90 0RF aspirin 81 mg tablet,delayed release (DR/EC) 81 mg PO DAILY Qty: 30 0RF pantoprazole 40 mg tablet,delayed release (DR/EC) 40 mg PO QAM Qty: 30 0RF lidocaine 5 % adhesive patch,medicated See Rx Instructions .ROUTE .COMPLEX Qty: 30 0RF Rx Instructions: 1 patch topically on for 12 hours and off for 12 hours promethazine 25 mg tablet 25 mg PO Q6H PRN (Reason: Nausea And Vomiting) Qty: 10 0RF sertraline 50 mg Tablet 50 mg PO BEDTIME Qty: 30 0RF potassium chloride 20 mEq tablet extended release 20 meq PO DAILY Qty: 30 0RF diphenoxylate-atropine [Lomotil] 2.5-0.025 mg tablet 1 tab PO BID PRN (Reason: diarrhea) Qty: 7 0RF Hold Instructions: no longer having diarrhea Lantus Solostar U-100 Insulin 100 unit/mL (3 mL) insulin pen 10 unit SUBCUT QPM Qty: 15 0RF (DME) blood-glucose meter Kit See Rx Instructions .Route Qty: 1 0RF Rx Instructions: As directed, test strip, lancets, type 2 DM (DME) pen needle, diabetic [Lite Touch Insulin Pen [place]] 31 gauge x 1/4 needle See Rx Instructions .Route Qty: 50 0RF Rx Instructions: As directed alprazolam [Xanax] 0.5 mg tablet 0.5 mg PO TID PRN (Reason: anxiety) Qty: 20 0RF prednisone 5 mg tablet 5 mg PO DAILY 0RF Hold Instructions: see pcp citalopram 20 mg Tablet 20 mg PO DAILY 0RF hydrocodone-acetaminophen 5-325 mg tablet 1 tab PO Q4H PRN (Reason: pain) 0RF albuterol sulfate 90 mcg/actuation HFA aerosol inhaler 2 inh inhalation Q8H PRN (Reason: shortness of breath or wheezing) Qty: 8.5 3RF Medrol (Joe) 4 mg tablets,dose pack See Rx Instructions .ROUTE .COMPLEX Qty: 21 0RF Rx Instructions: orally per package directions Discharge Orders: Discharge ED (Routine); Ordered 10/07/21 Ordered By: Jarrett Sadler Referrals: Lazaro Pradhan MD [Primary Care Provider] - Discharge Diet: Advance as tolerated Discharge Activity: Resume usual activity Patient Instructions: Thoracolumbar Fracture (ED), Fall Prevention (ED) Coding Level of Care Code ED Tennis [employer] Cove[employer] Hand for Chg Fwd Exam Comprehensive
[2021-10-07] MEDS: HYDROcodone-acetaminophen 5-325 mg Tablet 1 TAB PO (04:57)
[2021-10-07 06:10] VITALS: BP 139/94; PULSE 92; O2SAT 92
== END 2021-10-07 06:12 | disposition home or self-care (01) ==
PROVIDERS: Emergency Provider Emergency Medicine; PCP Family Medicine
DX: S32.010A Wedge compression fracture of first lumbar vertebra, initial encounter for closed fracture (principal); M43.16 Spondylolisthesis, lumbar region; M43.17 Spondylolisthesis, lumbosacral region; W01.0XXA Fall on same level from slipping, tripping and stumbling without subsequent striking against object, initial encounter
CPT/HCPCS: 72072; 72100; 99283